=== PATIENT | female | born 1965 ===

== ENCOUNTER → 2020-06-13 | Outpatient (BNVA) | payer OTHER, SELFPAY | PROVIDERS: PCP Internal Medicine; Referring Provider Internal Medicine; Visit Provider Psychiatry & Neurology Neurology | DX: G47.33 Obstructive sleep apnea (adult) (pediatric) (principal) | CPT/HCPCS: 99213 ==

== ENCOUNTER → 2020-06-14 10:11 | Outpatient (BNV) | payer OTHER, SELFPAY | PROVIDERS: PCP Internal Medicine; Visit Provider Internal Medicine | DX: D50.9 Iron deficiency anemia, unspecified (principal) | CPT/HCPCS: 99213 ==

== ENCOUNTER → 2020-07-24 14:27 | Outpatient (BNVA) | payer OTHER, SELFPAY | PROVIDERS: PCP Internal Medicine; Referring Provider Internal Medicine; Visit Provider Anesthesiology | DX: M16.12 Unilateral primary osteoarthritis, left hip (principal); M47.27 Other spondylosis with radiculopathy, lumbosacral region | CPT/HCPCS: 99202 ==

== ENCOUNTER 2020-08-08 07:01 | Outpatient (REF) | payer OTHER, SELFPAY ==
--- NOTE | 2020-08-08 07:38 | FL_ITS ---
EXAMINATION: XR FLUOROSCOPY WITH IMAGES CLINICAL INFORMATION: Lumbosacral radiculopathy. COMPARISON: None. TECHNIQUE: Fluoroscopy performed by Elis Tejada NP. Fluoroscopy time: 0.6 minutes DAP: 14.7 Gycm2 Images: 2 FINDINGS: AP and lateral view of sacrum view of the needle positioned presacral space with contrast injection. FL/FL guidance in treatment room IMPRESSION: Fluoroscopy was provided to pain management department for presacral injection.
== END 2020-08-08 07:02 | disposition home or self-care (01) ==
LOC: HO.RADIR 07:01
PROVIDERS: Visit Provider Anesthesiology
DX: M47.27 Other spondylosis with radiculopathy, lumbosacral region (principal); M16.12 Unilateral primary osteoarthritis, left hip
CPT/HCPCS: 62323; J3300; Q9967

== ENCOUNTER → 2020-09-11 11:40 | Outpatient (BNVA) | payer OTHER, SELFPAY | PROVIDERS: PCP Internal Medicine; Visit Provider Anesthesiology | DX: M16.12 Unilateral primary osteoarthritis, left hip (principal); M47.27 Other spondylosis with radiculopathy, lumbosacral region | CPT/HCPCS: 99212 ==

== ENCOUNTER → 2020-09-13 08:27 | Outpatient (BNVA) | payer OTHER, SELFPAY | PROVIDERS: PCP Internal Medicine; Visit Provider Physician Assistant | DX: Z98.84 Bariatric surgery status (principal); Z59.6 Low income | CPT/HCPCS: 99212 ==

== ENCOUNTER → 2020-09-18 12:45 | Outpatient (BNVA) | payer OTHER, SELFPAY | PROVIDERS: PCP Internal Medicine; Visit Provider Internal Medicine Cardiovascular Disease | DX: Z45.018 Encounter for adjustment and management of other part of cardiac pacemaker (principal); I42.9 Cardiomyopathy, unspecified | CPT/HCPCS: 99212 ==

== ENCOUNTER 2020-09-19 15:01 | Outpatient (REF) | payer OTHER, SELFPAY ==
--- NOTE | 2020-09-20 14:08 | XR_ITS ---
EXAMINATION: XR AP BILATERAL KNEES STANDING XR KNEE, RIGHT XR KNEE, LEFT CLINICAL INFORMATION: Bilateral knee pain COMPARISON: Bilateral AP knee and right knee 10/16/2016 TECHNIQUE: AP bilateral knee. 2 views each knee. FINDINGS: AP BILATERAL KNEE: There is reduction in medial and lateral compartment joint space both knees without bony erosive changes. The soft tissues are normal. RIGHT KNEE: There is loss of patellofemoral compartment joint space with superior and lateral patellar spur and anterior superior patellar enthesophyte of the insertion of quadriceps tendon. No loose body seen. LEFT KNEE: There is loss of patellofemoral compartment joint space with superior and anterior superior patella spur and enthesophyte. No bony erosive changes or loose body seen. XR/XR knee RT 2V IMPRESSION: Degenerative arthritic changes medial and patellofemoral compartment joint space with periarticular spurring in the patellofemoral compartment. No visible acute fracture or dislocation seen.
--- NOTE | 2020-09-20 14:08 | XR_ITS ---
EXAMINATION: XR AP BILATERAL KNEES STANDING XR KNEE, RIGHT XR KNEE, LEFT CLINICAL INFORMATION: Bilateral knee pain COMPARISON: Bilateral AP knee and right knee 10/16/2016 TECHNIQUE: AP bilateral knee. 2 views each knee. FINDINGS: AP BILATERAL KNEE: There is reduction in medial and lateral compartment joint space both knees without bony erosive changes. The soft tissues are normal. RIGHT KNEE: There is loss of patellofemoral compartment joint space with superior and lateral patellar spur and anterior superior patellar enthesophyte of the insertion of quadriceps tendon. No loose body seen. LEFT KNEE: There is loss of patellofemoral compartment joint space with superior and anterior superior patella spur and enthesophyte. No bony erosive changes or loose body seen. XR/XR knee standing BI IMPRESSION: Degenerative arthritic changes medial and patellofemoral compartment joint space with periarticular spurring in the patellofemoral compartment. No visible acute fracture or dislocation seen.
--- NOTE | 2020-09-20 14:08 | XR_ITS ---
EXAMINATION: XR AP BILATERAL KNEES STANDING XR KNEE, RIGHT XR KNEE, LEFT CLINICAL INFORMATION: Bilateral knee pain COMPARISON: Bilateral AP knee and right knee 10/16/2016 TECHNIQUE: AP bilateral knee. 2 views each knee. FINDINGS: AP BILATERAL KNEE: There is reduction in medial and lateral compartment joint space both knees without bony erosive changes. The soft tissues are normal. RIGHT KNEE: There is loss of patellofemoral compartment joint space with superior and lateral patellar spur and anterior superior patellar enthesophyte of the insertion of quadriceps tendon. No loose body seen. LEFT KNEE: There is loss of patellofemoral compartment joint space with superior and anterior superior patella spur and enthesophyte. No bony erosive changes or loose body seen. XR/XR knee LT 2V IMPRESSION: Degenerative arthritic changes medial and patellofemoral compartment joint space with periarticular spurring in the patellofemoral compartment. No visible acute fracture or dislocation seen.
== END 2020-09-19 15:02 | disposition home or self-care (01) ==
LOC: HO.HOSX 15:01
PROVIDERS: Visit Provider Orthopaedic Surgery
DX: M17.0 Bilateral primary osteoarthritis of knee (principal)
CPT/HCPCS: 73560; 73565

== ENCOUNTER → 2020-09-20 13:40 | Outpatient (BNVA) | payer OTHER, SELFPAY | PROVIDERS: PCP Internal Medicine; Visit Provider Orthopaedic Surgery | DX: M17.0 Bilateral primary osteoarthritis of knee (principal) | CPT/HCPCS: 20610; 99202; J1040 ==

== ENCOUNTER 2020-09-28 15:20 | Outpatient (REF) | payer OTHER, SELFPAY ==
--- NOTE | 2020-09-28 15:23 | CT_ITS ---
EXAMINATION: CT LUMBAR SPINE WITHOUT CONTRAST CLINICAL INFORMATION: Spondylosis with radiculopathy. COMPARISON: Lumbar spine 04/11/2020. TECHNIQUE: 2 mm thin and axial and reformatted 2 mm thin sagittal and coronal images of lumbar spine were obtained. This CT examination was performed using dose optimization techniques as appropriate, variously including the following: *Automated exposure control *Adjustment of mA and/or kV according to patient size (this includes techniques or standardized protocols for targeted exams where dose is matched to indication/reason for exam; i.e. extremities or head) *Use of iterative reconstruction technique DLP; 940 mGy-cm FINDINGS: There is normal cervical lordosis. The vertebral heights are normal. There is grade 1 anterolisthesis L4-L5. Rest of the vertebral alignment is normal. The disc heights are preserved. There is no visible acute fracture, dislocation or lytic process. The T12-L1, L1-L2, L2-L3 disc levels unremarkable. At L3-L4 disc level there is minimal bulge flattening the ventral thecal sac but no spinal canal stenosis seen. The neural foramina are patent bilaterally. At L4-L5 disc level there is grade 1 anterolisthesis with mild diffuse bulge without lateralization. There is no spinal canal stenosis. The neural foramina are patent bilaterally in spite of mild facet joint arthropathy at L4-L5 disc level. At L5-S1 disc level there is no significant disc bulge, herniation or spinal stenosis. The neural foramina are patent bilaterally. The paravertebral soft tissues are normal. CT/CT lumbar spine wo con IMPRESSION: Minimal disc bulge L3-L4, L4-L5 and L5-S1 disc levels without spinal canal stenosis. There is a grade 1 anterolisthesis L4 over L5. There is no spinal canal stenosis. The neural foramina are patent bilaterally.
== END 2020-09-28 15:21 | disposition home or self-care (01) ==
LOC: HO.CT 15:20
PROVIDERS: PCP Internal Medicine; Visit Provider Anesthesiology
DX: M47.27 Other spondylosis with radiculopathy, lumbosacral region (principal)
CPT/HCPCS: 72131

== ENCOUNTER → 2020-10-02 15:10 | Outpatient (BNVA) | payer OTHER, SELFPAY | PROVIDERS: PCP Internal Medicine; Visit Provider Anesthesiology ==

== ENCOUNTER → 2020-10-18 14:22 | Outpatient (BNVA) | payer OTHER, SELFPAY | PROVIDERS: PCP Internal Medicine; Visit Provider Physician Assistant | DX: E66.01 Morbid (severe) obesity due to excess calories (principal); I42.9 Cardiomyopathy, unspecified; Z98.84 Bariatric surgery status | CPT/HCPCS: 99212 ==

== ENCOUNTER → 2020-11-01 14:03 | Outpatient (BNVA) | payer OTHER, SELFPAY | PROVIDERS: PCP Internal Medicine; Visit Provider Physician Assistant ==

== ENCOUNTER → 2020-11-02 14:06 | Outpatient (REF) | payer OTHER, SELFPAY ==
--- NOTE | 2020-11-02 14:11 | CA_ITS ---
Transthoracic Echocardiogram Amended Patient (Last, First, Middle): Urvashi Torres D Gender: Female Date of : 1965 Age: 55 Procedure Date: 11/02/2020 Procedure Type: Transthoracic Echocardiogram Location: OP Height: 160.02 cm Weight: 120.66 kg BSA: 2.18 m2 Heart Rate: bpm BP: 139 / 81 mmHg [facility] Technician: BLNACHE Referring MD: Gabriel Salcedo MD Symptoms: I42.9 - Cardiomyopathy, unspecified Study Quality: Fair ECG Rhythm: Sinus Conclusions: - The left ventricular systolic function is normal. The visually estimated ejection fraction is between 55-60%. - No obvious valvular pathology seen on this study. Findings Left Ventricle Normal left ventricular cavity size. There is mildly increased left ventricular wall thickness. The left ventricular systolic function is normal. The visually estimated ejection fraction is between 55-60%. The calculated ejection fraction is 54% by biplane method. There is no evidence of regional wall motion abnormalities. Diastolic function is normal for age. Right Ventricle Mildly increased right ventricular cavity size. There is normal right ventricular systolic function. There is a pacemaker wire seen in the right ventricle. Atria Both atria are normal in size. A pacemaker wire is identified in the right atrium. Aortic Valve There is a normal trileaflet aortic valve. There is no aortic valve stenosis. There is no aortic valve regurgitation. Mitral Valve The mitral valve appears normal. There is trace mitral valve regurgitation. There is no mitral valve stenosis. Pulmonic Valve The pulmonic valve was not well visualized. Tricuspid Valve There is trace tricuspid valve regurgitation. The pulmonary artery systolic pressure is normal. Great Vessels The asc aorta is normal in size. Venous The inferior vena cava is normal in size and collapses greater than 50% with inspiration. Pericardium/Pleural There is no evidence of pericardial effusion. Prior Study Comparison Changes noted compared to prior study dated: 10/12/2019. LVEF improved. Recommendations, Care & Conclusions No obvious valvular pathology seen on this study. Measurements M-Mode Liner Measurements Normals - Women/Men AOV Cusps: 2.20 1.5-2.6 cm/m2 2D Linear Measurements IVSd: 1.13 0.6-0.9/0.6-1.0 cm LVIDd: 4.84 3.9-5.3/4.2-5.9 cm LVIDd Index: 2.22 2.4-3.2/2.2-3.1 cm/m2 LVIDs: 3.76 2.0-3.6 cm LVPWd: 1.03 0.7-1.1 cm Ao Root: 3.90 2.1-3.5 cm LA Diam: 3.50 2.7-3.8/3.0-4.0 cm LAIDs Index: 1.61 1.5-2.3 cm/m2 LV Mass: 238.80 67-162/88-224 g LV Mass Index: 109.54 43-95/49-115 g/m2 LVOT Diam: 2.30 3.0+(-)1.3 cm 2D Volumes LA Vol: 18.60 2D Systolic Function EF 4C: 51.60 >55% EF 2C: 56.50 >55% EF BiP: 54.40 >55% Mitral Valve MV Pk E: 1.05 MV PK A: 1.34 MV Decel Time: 182.00 E/A: 0.80 E'Lateral: 11.70 E'Medial: 7.53 E/E' Med: 13.90 E/E' Lat: 9.00 PHT: 53.00 MVA PHT: 4.15 Decel Fajardo: 5.79 Aortic Valve AoV Pk Wilfredo: 1.72 AoV Pk Grad: 12.00 LVOT LVOT Pk Wilfredo: 1.18 LVOT Mn Wilfredo: 0.72 LVOT VTI: 0.26 LVOT Pk Grad: 6.00 LVOT Mn Grad: 3.00 LVOT Diam: 2.30 LVOT Area: 4.15 Diastolic Function MV Pk E: 1.05 MV Pk A: 1.34 E/A: 0.80 E'Medial: 7.53 E/E' Med: 13.90 E' Laterial: 11.70 E/E' Lat: 9.00 Tricuspid Valve RA Press: 3.00 Great Vessels Aorta Ao Root-2D: 3.90 2.0-3.7 cm Ao Asc: 3.50 2.1-3.4 cm Ao Arch: 2.70 Pulmonary Valve PV Pk Wilfredo: 1.11 Peak PV Grad: 5.00 Updated in Other Vendor System with Status of Final Mohan Goins MD electronically signed on 11/04/2020 9:33:54 AM with status of Final
== END ==
LOC: HO.CARD 14:06
PROVIDERS: Visit Provider Internal Medicine Cardiovascular Disease
DX: I42.9 Cardiomyopathy, unspecified (principal)
CPT/HCPCS: 93306

== ENCOUNTER → 2020-11-06 10:36 | Outpatient (BNVA) | payer OTHER, SELFPAY | PROVIDERS: PCP Internal Medicine; Visit Provider Anesthesiology | DX: M16.12 Unilateral primary osteoarthritis, left hip (principal); M47.27 Other spondylosis with radiculopathy, lumbosacral region; Z79.899 Other long term (current) drug therapy | CPT/HCPCS: 99212 ==

== ENCOUNTER 2020-11-14 06:07 | Outpatient (REF) | payer OTHER, SELFPAY ==
--- NOTE | ~2020-11-14 | FL_ITS ---
EXAMINATION: XR FLUOROSCOPY WITH IMAGES CLINICAL INFORMATION: M53.3 - Sacrococcygeal disorders, not elsewhere classified COMPARISON: CT lumbar spine noncontrast 09/28/2020 TECHNIQUE: Fluoroscopy performed by Elis Tejada NP. Fluoroscopy time: 0.3 minutes DAP: 4.08 Gycm2 Images: 1 FINDINGS: There is a spinal needle with tip near anterior cortex lower coccyx. There is presacral coccygeal contrast. No visible vascular communication. FL/FL guidance in treatment room IMPRESSION: Fluoroscopy for pain management procedure.
== END 2020-11-14 06:08 | disposition home or self-care (01) ==
LOC: HO.RADIR 06:07
PROVIDERS: Visit Provider Anesthesiology
DX: M47.27 Other spondylosis with radiculopathy, lumbosacral region (principal); M53.3 Sacrococcygeal disorders, not elsewhere classified; M16.12 Unilateral primary osteoarthritis, left hip; Z87.891 Personal history of nicotine dependence
CPT/HCPCS: 64999; J3300; Q9967

== ENCOUNTER → 2020-11-15 14:15 | Outpatient (BNVA) | payer OTHER, SELFPAY | PROVIDERS: PCP Internal Medicine; Visit Provider Physician Assistant ==

== ENCOUNTER → 2020-11-17 08:15 | Outpatient (BNVA) | payer OTHER, SELFPAY | PROVIDERS: PCP Internal Medicine; Visit Provider Physician Assistant ==

== ENCOUNTER 2020-11-23 12:44 | Outpatient (REF) | payer OTHER, SELFPAY ==
--- NOTE | ~2020-11-23 | MM_ITS ---
EXAMINATION: MM SCREENING DIGITAL BREAST TOMOSYNTHESIS, BILATERAL CLINICAL INFORMATION: Screening. Asymptomatic. The lifetime risk of breast cancer based on the Tyrer-Cuzick Model is 7.6%. COMPARISON: Mammography: July 28, 2019 and studies dating back to May 15, 2009 TECHNIQUE: Digital breast tomosynthesis is performed in both the craniocaudal and mediolateral oblique views along with computer-aided detection (CAD). Synthesized 2D images are generated from the tomosynthesis. FINDINGS: There are scattered areas of fibroglandular density (ACR BI-RADS breast composition Category b). There are no significant masses, abnormal calcifications, or other abnormalities. MM/MM tomosynthesis screening BI IMPRESSION: There are no significant changes from prior study. ASSESSMENT: BI-RADS 1: Negative RECOMMENDATION: Routine annual mammography screening. This patient's information was entered into a reminder system with a target due date for their next mammogram.
== END 2020-11-23 12:45 | disposition home or self-care (01) ==
LOC: HO.MAMMO 12:44
PROVIDERS: PCP Internal Medicine; Visit Provider Internal Medicine
DX: Z12.31 Encounter for screening mammogram for malignant neoplasm of breast (principal)
CPT/HCPCS: 77063; 77067

== ENCOUNTER → 2020-11-29 08:10 | Outpatient (BNVA) | payer OTHER, SELFPAY | PROVIDERS: PCP Internal Medicine; Visit Provider Anesthesiology | DX: M16.12 Unilateral primary osteoarthritis, left hip (principal); M47.27 Other spondylosis with radiculopathy, lumbosacral region; Z79.899 Other long term (current) drug therapy; Z87.891 Personal history of nicotine dependence | CPT/HCPCS: 99212 ==

== ENCOUNTER → 2020-12-12 09:19 | Outpatient (BNVA) | payer OTHER, SELFPAY | PROVIDERS: PCP Internal Medicine; Visit Provider Psychiatry & Neurology Neurology ==

== ENCOUNTER → 2020-12-14 14:55 | Outpatient (BNVA) | payer OTHER, SELFPAY | PROVIDERS: PCP Internal Medicine; Visit Provider Anesthesiology | DX: M16.12 Unilateral primary osteoarthritis, left hip (principal); M47.27 Other spondylosis with radiculopathy, lumbosacral region; Z79.899 Other long term (current) drug therapy | CPT/HCPCS: 99212 ==

== ENCOUNTER → 2020-12-19 13:37 | Outpatient (BNVA) | payer OTHER, SELFPAY | PROVIDERS: PCP Internal Medicine; Visit Provider Physician Assistant | DX: E66.01 Morbid (severe) obesity due to excess calories (principal); Z98.84 Bariatric surgery status | CPT/HCPCS: 99212 ==

== ENCOUNTER 2021-01-03 15:36 | Outpatient (REF) | payer OTHER, SELFPAY | END 2021-01-03 15:37 | disposition home or self-care (01) | LOC: HO.LAB 15:36 | PROVIDERS: PCP Internal Medicine; Visit Provider Obstetrics & Gynecology | DX: N93.9 Abnormal uterine and vaginal bleeding, unspecified (principal) | CPT/HCPCS: 58100; 88305; 99202 ==

== ENCOUNTER 2021-01-11 11:05 | Outpatient (REF) | payer OTHER, SELFPAY ==
[2021-01-16 17:36] LABS: Vitamin A 37 mcg/dL (38-98)
== END 2021-01-11 11:06 | disposition home or self-care (01) ==
LOC: HO.LAB 11:05
PROVIDERS: PCP Internal Medicine; Visit Provider Physician Assistant
DX: E50.9 Vitamin A deficiency, unspecified (principal)
CPT/HCPCS: 36415; 84590

== ENCOUNTER → 2021-01-15 11:03 | Outpatient (BNVA) | payer OTHER, SELFPAY | PROVIDERS: PCP Internal Medicine; Visit Provider Obstetrics & Gynecology ==

== ENCOUNTER 2021-01-16 06:57 | Outpatient (REF) | payer OTHER, SELFPAY ==
--- NOTE | ~2021-01-16 | FL_ITS ---
EXAMINATION: XR FLUOROSCOPY WITH IMAGES CLINICAL INFORMATION: Left hip arthritis COMPARISON: None. TECHNIQUE: Fluoroscopy performed by Elis Tejada NP. Fluoroscopy time: 0.1 minutes DAP: 5.0 Gycm2 Images: 1 FINDINGS: Single image demonstrates needle placement projecting over the lateral femoral head on noncontrast imaging FL/FL guidance in treatment room IMPRESSION: Left hip joint. Fluoroscopy guidance for left hip injection.
== END 2021-01-16 06:58 | disposition home or self-care (01) ==
LOC: HO.RADIR 06:57
PROVIDERS: Visit Provider Anesthesiology
DX: M16.12 Unilateral primary osteoarthritis, left hip (principal); M17.12 Unilateral primary osteoarthritis, left knee; M47.27 Other spondylosis with radiculopathy, lumbosacral region; I42.9 Cardiomyopathy, unspecified; Z88.8 Allergy status to other drugs, medicaments and biological substances; Z95.0 Presence of cardiac pacemaker; Z87.891 Personal history of nicotine dependence
CPT/HCPCS: 20610; J3300; Q9967

== ENCOUNTER → 2021-01-17 08:11 | Outpatient (BNVA) | payer OTHER, SELFPAY | PROVIDERS: PCP Internal Medicine; Visit Provider Physician Assistant ==

== ENCOUNTER → 2021-02-21 14:59 | Outpatient (BNVA) | payer OTHER, SELFPAY | PROVIDERS: PCP Internal Medicine; Visit Provider Anesthesiology | DX: M16.12 Unilateral primary osteoarthritis, left hip (principal); M47.27 Other spondylosis with radiculopathy, lumbosacral region; G89.4 Chronic pain syndrome | CPT/HCPCS: 99212 ==

== ENCOUNTER → 2021-03-01 10:42 | Outpatient (BNVA) | payer OTHER, SELFPAY | PROVIDERS: PCP Internal Medicine; Referring Provider Internal Medicine; Visit Provider Dietitian, Registered | DX: E66.01 Morbid (severe) obesity due to excess calories (principal); Z68.41 Body mass index [BMI] 40.0-44.9, adult | CPT/HCPCS: 97803 ==

== ENCOUNTER → 2021-03-19 13:06 | Outpatient (BNVA) | payer OTHER, SELFPAY | PROVIDERS: PCP Internal Medicine; Referring Provider Internal Medicine; Visit Provider Internal Medicine Cardiovascular Disease | DX: I42.9 Cardiomyopathy, unspecified (principal); Z95.0 Presence of cardiac pacemaker; Z79.899 Other long term (current) drug therapy | CPT/HCPCS: 99212 ==

== ENCOUNTER → 2021-03-29 12:56 | Outpatient (BNVA) | payer OTHER, SELFPAY | PROVIDERS: PCP Internal Medicine; Visit Provider Physician Assistant ==

== ENCOUNTER → 2021-03-30 07:46 | Outpatient (BNVA) | payer OTHER, SELFPAY | PROVIDERS: PCP Internal Medicine; Visit Provider Physician Assistant | DX: E66.01 Morbid (severe) obesity due to excess calories (principal); Z98.84 Bariatric surgery status ==

== ENCOUNTER 2021-04-02 10:31 | Outpatient (REF) | payer OTHER, SELFPAY ==
[2021-04-02 11:37] LABS: MANUAL DIFF FLAG NO
[2021-04-02 11:52] LABS: Basophils Percent Auto 0.3 % (0-2); Eosinophils Absolute Auto 0.1 X10*3/uL (0.0-0.4); Eosinophils Percent Auto 1.1 % (0-4); Hemoglobin 12.2 g/dl (12.0-16.0); Imm Gran Abs Auto 0.01 X10*3/uL (0.00-0.03); Imm Gran Pct Auto 0.2 % (0.0-0.4); Lymphocytes Absolute Auto 2.1 X10*3/uL (1.2-4.9); Lymphocytes Percent Auto 34.9 % (20-40); Mean Corpuscular HGB Conc 31.3 g/dl (31.0-35.0); Mean Corpuscular Hemoglobin 27.4 pg (27.0-33.0); Mean Corpuscular Volume 87.6 fL (80-98); Mean Platelet Volume 12.1 fL (9.4-12.3); Monocytes Absolute Auto 0.5 X10*3/uL (0.1-1.2); Monocytes Percent Auto 7.7 % (2-11); Neutrophils Absolute Auto 3.4 X10*3/uL (2.0-8.3); Neutrophils Percent Auto 55.8 % (45-73); Platelet Count 199 X10*3/uL (160-400); Red Blood Count 4.45 X10*6/uL (4.20-5.50); Red Cell Distribution Width 13.1 % (11.0-16.0); White Blood Count 6.1 X10*3/uL (4.8-10.8)
[2021-04-02 12:04] LABS: Estimated Average Glucose 108 mg/dL; Hemoglobin A1c % 5.4 %
[2021-04-02 12:40] LABS: Alanine Aminotransferase 18 U/L (0-31); Albumin Level 4.4 g/dL (3.5-5.0); Alkaline Phosphatase 57 U/L (39-117); Anion Gap 15 (12-20); Aspartate Amino Transferase 38 U/L (5-31); Bilirubin Total 0.4 mg/dL (0.0-1.0); Blood Urea Nitrogen 14 mg/dL (9-16); C Reactive Protein 0.69 mg/dL (< or = 0.50); Calcium 10.7 mg/dL (8.4-10.2); Carbon Dioxide 25 mmol/L (22-29); Chloride 105 mmol/L (96-108); Cholesterol 146 mg/dL; Estimated Glomerular Filt Rate > 60; Glucose Random 82 mg/dL (60-115); HDL Cholesterol 43 mg/dL; Iron 73 mcg/dL (30-160); LDL Cholesterol Calculated 86 mg/dl; Percent Iron Saturation 25 % (15-50); Potassium 4.1 mmol/L (3.3-5.1); Sodium 141 mmol/L (135-145); Total Iron Binding Capacity 290 mcg/dL (228-428); Total Protein 7.3 g/dL (6.5-8.0); Triglycerides 87 mg/dL; Unsaturated Iron Binding 217 ug/dL
[2021-04-02 12:50] LABS: TSH reflex Free T4 1.34 uIU/mL (0.32-4.0); Vitamin D 25-OH Total 41.8 ng/mL (>30)
[2021-04-02 12:53] LABS: Folate 19.2 ng/mL (> or = 4.0); Vitamin B12 1005 pg/mL (200-900)
[2021-04-02 13:31] LABS: Ferritin 422 ng/mL (10-250)
[2021-04-05 06:21] LABS: Zinc 73 mcg/dL (60-130)
[2021-04-05 19:36] LABS: Vitamin A 29 mcg/dL (38-98)
[2021-04-07 11:36] LABS: Vitamin B1 25 nmol/L (8-30)
== END 2021-04-02 10:32 | disposition home or self-care (01) ==
LOC: HO.LAB 10:31
PROVIDERS: PCP Internal Medicine; Visit Provider Physician Assistant
DX: E66.01 Morbid (severe) obesity due to excess calories (principal); Z98.84 Bariatric surgery status
CPT/HCPCS: 36415; 80053; 80061; 82306; 82607; 82728; 82746; 83036; 83525; 83540; 83735; 83970; 84425; 84443; 84590; 84630; 85025; 86140

== ENCOUNTER → 2021-04-03 11:13 | Outpatient (BNVA) | payer OTHER, SELFPAY | PROVIDERS: PCP Internal Medicine; Visit Provider Surgery Vascular Surgery | DX: I83.12 Varicose veins of left lower extremity with inflammation (principal) | CPT/HCPCS: 99202 ==

== ENCOUNTER 2021-04-09 08:14 | Outpatient (REF) | payer OTHER, SELFPAY ==
--- NOTE | ~2021-04-09 | US_ITS ---
EXAMINATION: BILATERAL LOWER EXTREMITY VENOUS ULTRASOUND (Reflux Exam) CLINICAL INDICATION: This is a 55-year-old female with venous insufficiency and varicose veins. COMPARISON: None. TECHNIQUE: Color flow triplex imaging and compression Doppler was performed to evaluate both the deep and the superficial systems bilaterally. To evaluate the superficial system, the examination was performed in the upright position. Color-flow Doppler ultrasound and compression ultrasound were utilized. In addition, maneuvers were utilized to demonstrate reflux. FINDINGS: 1. DEEP VENOUS ULTRASOUND OF THE RIGHT LOWER EXTREMITY: Common Femoral Vein: Compressible, normal respiratory variation and augmented flow. Femoral vein: Compressible, normal color flow and augmentation. Popliteal Vein: Compressible, normal augmentation. Deep Reflux: There is no evidence of reflux in the deep system in either the common femoral vein or the popliteal vein. . There is no evidence of a Newton's cyst. 2. SUPERFICIAL ULTRASOUND WITH DOPPLER OF RIGHT LOWER EXTREMITY GREAT SAPHENOUS VEIN: Saphenofemoral junction: 0.8 cm Mid thigh: 0.4 cm Above knee: 0.3 cm Below knee: 0.3 cm Mid calf: 0.3 cm Ankle: 0.3 cm GSV REFLUX: No evidence of reflux. DUPLICATED GREAT SAPHENOUS VEIN: There is a 0.3 cm duplicated lateral great saphenous vein without evidence of reflux. SMALL SAPHENOUS VEIN: Upper: 0.2 cm Lower: 0.2 cm SSV REFLUX: No evidence of reflux. VEIN OF GIACOMINI: None Imaged. PERFORATORS: None Imaged VARICOSITIES: None Imaged 3. DEEP VENOUS ULTRASOUND OF THE LEFT LOWER EXTREMITY: Common Femoral Vein: Compressible, normal respiratory variation and augmented flow. Femoral vein: Compressible, normal color flow and augmentation. Popliteal Vein: Compressible, normal augmentation. Deep Reflux: There is no evidence of reflux in the deep system in either the common femoral vein or the popliteal vein. There is no evidence of a Newton's cyst. 4. SUPERFICIAL ULTRASOUND WITH DOPPLER OF LEFT LOWER EXTREMITY GREAT SAPHENOUS VEIN: Saphenofemoral junction: 0.8 cm Mid thigh: 0.4 cm Above knee: 0.3 cm Below knee: 0.3 cm Mid calf: 0.2 cm Ankle: 0.3 cm GSV REFLUX: No evidence of reflux. DUPLICATED GREAT SAPHENOUS VEIN: None SMALL SAPHENOUS VEIN: Upper: 0.5 cm Lower: 0.3 cm SSV REFLUX: No evidence of reflux. VEIN OF GIACOMINI: None Imaged. 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 VARICOSITIES: There is a 0.3 cm proximal thigh varicose vein without reflux. There is a 0.3 cm proximal calf varicose vein without reflux. US/US venous duplex LE BI IMPRESSION: 1. There are patent bilateral great saphenous veins and small saphenous veins, respectively, without evidence of reflux. 2. There are 0.3 cm varicose veins on the left as noted without reflux.
== END 2021-04-09 08:15 | disposition home or self-care (01) ==
LOC: HO.US 08:14
PROVIDERS: Visit Provider Surgery Vascular Surgery
DX: I83.893 Varicose veins of bilateral lower extremities with other complications (principal)
CPT/HCPCS: 93970

== ENCOUNTER → 2021-04-24 11:00 | Outpatient (BNVA) | payer OTHER, SELFPAY | PROVIDERS: PCP Internal Medicine; Visit Provider Surgery Vascular Surgery | DX: I83.12 Varicose veins of left lower extremity with inflammation (principal) | CPT/HCPCS: 99212 ==

== ENCOUNTER 2021-05-29 12:21 | Outpatient (REF) | payer OTHER, SELFPAY ==
--- NOTE | ~2021-05-29 | XR_ITS ---
EXAMINATION: XR HIP, LEFT CLINICAL INFORMATION: Left hip pain. COMPARISON: None TECHNIQUE: Two views of the left hip. FINDINGS: There is mild left periacetabular spurring. The hip joint space is maintained. No visible acute fracture or dislocation seen. XR/XR hip LT min 2V IMPRESSION: Mild degenerative changes left hip joint..
== END 2021-05-29 12:22 | disposition home or self-care (01) ==
LOC: HO.HMGCX 12:21
PROVIDERS: PCP Internal Medicine; Visit Provider Internal Medicine
DX: Z13.89 Encounter for screening for other disorder (principal)
CPT/HCPCS: 73502

== ENCOUNTER 2021-06-15 15:20 | Outpatient (REF) | payer OTHER, SELFPAY ==
[2021-06-15 15:43] LABS: COVID-19 Test Negative (Negative)
== END 2021-06-15 15:21 | disposition home or self-care (01) ==
LOC: HO.LAB 15:20
PROVIDERS: PCP Internal Medicine; Visit Provider Internal Medicine
DX: Z20.822 Contact with and (suspected) exposure to COVID-19 (principal)
CPT/HCPCS: 36415; 87635; C9803

== ENCOUNTER → 2021-06-21 11:35 | Outpatient (BNVA) | payer OTHER, SELFPAY | PROVIDERS: PCP Internal Medicine; Visit Provider Orthopaedic Surgery | DX: M22.2X1 Patellofemoral disorders, right knee (principal); M22.2X2 Patellofemoral disorders, left knee; R53.81 Other malaise | CPT/HCPCS: 20610; 99212; J1100 ==

== ENCOUNTER → 2021-06-26 08:41 | Outpatient (BNVA) | payer OTHER, SELFPAY | PROVIDERS: PCP Internal Medicine; Referring Provider Internal Medicine; Visit Provider Psychiatry & Neurology Neurology ==

== ENCOUNTER → 2021-09-17 12:48 | Outpatient (BNVA) | payer OTHER, SELFPAY | PROVIDERS: PCP Internal Medicine; Referring Provider Internal Medicine; Visit Provider Internal Medicine Cardiovascular Disease | DX: Z45.018 Encounter for adjustment and management of other part of cardiac pacemaker (principal); I42.9 Cardiomyopathy, unspecified | CPT/HCPCS: 93005; 99212 ==

== ENCOUNTER → 2021-09-20 10:35 | Outpatient (BNVA) | payer OTHER, SELFPAY | PROVIDERS: PCP Internal Medicine; Visit Provider Anesthesiology | DX: M16.12 Unilateral primary osteoarthritis, left hip (principal); M47.27 Other spondylosis with radiculopathy, lumbosacral region; G89.4 Chronic pain syndrome; G90.522 Complex regional pain syndrome I of left lower limb | CPT/HCPCS: 99212 ==

== ENCOUNTER → 2021-10-24 11:34 | Outpatient (BNVA) | payer OTHER, SELFPAY | PROVIDERS: PCP Internal Medicine; Visit Provider Anesthesiology | DX: M16.12 Unilateral primary osteoarthritis, left hip (principal); M47.27 Other spondylosis with radiculopathy, lumbosacral region; G90.522 Complex regional pain syndrome I of left lower limb; G89.4 Chronic pain syndrome | CPT/HCPCS: 99212 ==

== ENCOUNTER → 2021-11-05 11:33 | Outpatient (BNVA) | payer OTHER, SELFPAY | PROVIDERS: PCP Internal Medicine; Visit Provider Orthopaedic Surgery | DX: M25.561 Pain in right knee (principal); M25.562 Pain in left knee | CPT/HCPCS: 20610; 99212; J1100 ==

== ENCOUNTER 2021-11-16 11:51 | Day surgery (SDC) | payer OTHER, SELFPAY ==
--- NOTE | 2021-11-15 12:02 | HO.ANESPROP2 ---
Documented by User: Candace Freed NP 11/15/21 12:09 HPI - Anesthesia Eval Consult details Narrative: 56yo F for Left L2-L3 and L3-L4 Lumbar Spinal Cord Stimulation Trial Pacer in situ Stable at 09/2021 routine cardiac appt [facility] Active Problems Active Problems: All Active Problems (Updated 11/13/21 @ 14:27 by Yuly Woodruff, RN) Obstructive sleep apnea (Acute) Iron deficiency anemia (Chronic) Osteoarthritis of left hip (Acute) Obesity (Acute) Low income (Acute) Primary osteoarthritis of knees, bilateral (Acute) Left ankle swelling (Acute) Morbid obesity (Acute) Lumbar pain (Acute) Coccydynia (Acute) Dysfunctional uterine bleeding (Acute) Vitamin A deficiency (Acute) Ear disorder (Acute) Tinnitus, right (Acute) Varicose veins of left lower extremity with inflammation (Acute) Abdominal pain (Acute) Serum calcium elevated (Acute) Elevated ferritin (Acute) Encounter for general adult medical examination with abnormal findings (Acute) Change in mole (Acute) Gait disturbance (Acute) Hip pain, left (Acute) Patellofemoral arthralgia of both knees (Acute) Physical deconditioning (Acute) Bilateral knee pain (Acute) Complex regional pain syndrome i of left lower limb (Acute) Chronic pain syndrome (Acute) Cardiac pacemaker in situ (Acute) Cardiomyopathy (Acute) Gastric bypass status for obesity (Acute) Allergies (Acute) Osteoarthritis of left knee (Acute) Spondylosis of lumbosacral spine with radiculopathy (Acute) Past Medical History Medical History (Updated 11/13/21 @ 14:27 by Yuly Woodruff, RN) Allergies Back pain Cardiac pacemaker in situ Cardiomyopathy Chronic pain syndrome Complex regional pain syndrome i of left lower limb GERD (gastroesophageal reflux disease) HTN (hypertension) Osteoarthritis of left knee Second degree AV block Spondylosis of lumbosacral spine with radiculopathy Family History Family History Father Asthma Mother HTN (hypertension) Brother Cardiac pacemaker Surgical History Surgical History (Updated 11/13/21 @ 14:27 by Yuly Woodruff, RN) Gastric bypass status for obesity History of esophagogastroduodenoscopy (EGD) History of permanent cardiac pacemaker placement Hx of breast reduction, elective Hx of cholecystectomy Hx of colonoscopy Social History Social History Housing: Apartment Alcohol intake: former Patient Tobacco Use Status: Former Tobacco user Cigarette Packs Per Day: 0.5 Use of substances other than those prescribed or required for medical reasons: No Are you DNR?: No Advance Directives: No Advance Directives Information Provided: Yes Advance Directives on File: No Recently lost weight without trying: No 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al status: unemployed and disabled 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 Med[employer] Allergies Allergy/AdvReac Type Severity Reaction Status Date / Time adhesive tape Allergy Intermediate skin Uncoded 11/13/21 14:28 breakdown Home Medications Medication Instructions Recorded Confirmed Last Taken Type cetirizine 10 mg tablet 10 mg PO DAILY 09/20/21 11/13/21 11/16/21 History ipratropium bromide 42 mcg (0.06 2 spray INTRANASAL BID 09/20/21 11/13/21 Unknown History %) nasal spray ketotifen fumarate 0.025 % (0.035 0 drp OPHTHALMIC (EYE) 09/20/21 11/05/21 Unknown History %) eye drops fluticasone propionate 50 1 - 2 spray INTRANASAL QAM 11/13/21 11/13/21 Unknown History mcg/actuation nasal spray,suspension Exam Exam Date and Time: November 15, 2021 1202 Pertinent Lab Results Pertinent Lab Results: Laboratory Tests 04/02/21 07/25/21 10:45 13:40 WBC 6.1 Hgb 11.8 L Hct 36.6 L Plt Count 213 Sodium 141 Potassium 4.1 Chloride 105 Carbon Dioxide 25 BUN 14 Creatinine 0.69 Narrative Narrative: Cardiac Device Check 09/2021 Details: Dual-chamber [employer] pacemaker in place.? Programmed in DDDR at 60 beats per minute.? RV pacing 72% of time.? No arrhythmias noted.? Atrial ventricular pacing thresholds are adequate.? Pacing lead impedance is stable.? Atrial sensing is adequate.? No arrhythmias noted.? Battery life is at about 2 years EKG 09/2021 normal sinus rhythm with intermittent ventricular pacing as well as [place] conducted beats showing right bundle-branch block and left anterior fascicular block ECHO 10/2020 Conclusions: - The left ventricular systolic function is normal.? The visually estimated ejection fraction is between 55-60%. ? - No obvious valvular pathology seen on this study.? ?? Assessment and Plan Assessment Anesthesia Assessment: Chart Reviewed Documented by User: Panda Nixon MD 11/16/21 14:18 [facility] Past Medical History Medical History (Updated 11/13/21 @ 14:27 by Yuly Woodruff, RN) Allergies Back pain Cardiac pacemaker in situ Cardiomyopathy Chronic pain syndrome Complex regional pain syndrome i of left lower limb GERD (gastroesophageal reflux disease) HTN (hypertension) Osteoarthritis of left knee Second degree AV block Spondylosis of lumbosacral spine with radiculopathy Family History Family History Father Asthma Mother HTN (hypertension) Brother Cardiac pacemaker Family history of problems with anesthesia: No Surgical History Surgical History (Updated 11/13/21 @ 14:27 by Yuly Woodruff RN) Gastric bypass status for obesity History of esophagogastroduodenoscopy (EGD) History of permanent cardiac pacemaker placement Hx of breast reduction, elective Hx of cholecystectomy Hx of colonoscopy History of Problems with Anesthesia: No Social History Social History Housing: Apartment Alcohol intake: former Patient Tobacco Use Status: Former Tobacco user Cigarette Packs Per Day: 0.5 Use of substances other than those prescribed or required for medical reasons: No Are you DNR?: No Advance Directives: No Advance Directives Information Provided: Yes Advance Directives on File: No Recently lost weight without trying: No 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al status: unemployed and disabled 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 Med[employer] Allergies Allergy/AdvReac Type Severity Reaction Status Date / Time adhesive tape Allergy Intermediate skin Uncoded 11/13/21 14:28 breakdown Home Medications Medication Instructions Recorded Confirmed Last Taken Type cetirizine 10 mg tablet 10 mg PO DAILY 09/20/21 11/13/21 11/16/21 History ipratropium bromide 42 mcg (0.06 2 spray INTRANASAL BID 09/20/21 11/13/21 Unknown History %) nasal spray ketotifen fumarate 0.025 % (0.035 0 drp OPHTHALMIC (EYE) 09/20/21 11/05/21 Unknown History %) eye drops fluticasone propionate 50 1 - 2 spray INTRANASAL QAM 11/13/21 11/13/21 Unknown History mcg/actuation nasal spray,suspension Exam Airway Mallampati Class: III TM Dist: >3cm Neck ROM: Full Assessment and Plan Assessment Anesthesia Assessment: Anesthesia Plan Discussed Final Anesthetic Review Family History of Problems with Anesthesia: No History of Problems with Anesthesia: No NPO: Yes ASA Class: III Final Preanesthetic Review: No Changes in Pt Med Stat, Meds/Allgs Chart Reviewed, Consent Obtained/Reviewed and Anes Risks/Benef Reviewed Patient Risk: Intermediate Procedure Risk: Low Anesthetic Plan Anesthetic Plan: GA Disposition: Standard PACU
--- NOTE | ~2021-11-16 | FL_ITS ---
EXAMINATION: XR FLUOROSCOPY WITH IMAGES CLINICAL INFORMATION: Spinal cord simulation trial. COMPARISON: None. TECHNIQUE: Fluoroscopy performed by Dr. Ratliff. Fluoroscopy time: 1.8 minutes DAP: 40.1 mGycm2 Images: 5 FINDINGS: There are lateral images obtained lumbar spine revealing attempted insertion of spinal canal simulation posterior to L2 and L3 vertebra. The spinal canal simulators are intraspinal at the same level of insertion. No gross bony abnormality. FL/FL guidance in OR IMPRESSION: Fluoroscopy provided to referring physician for spinal cord simulation trial.
[2021-11-16 13:39] VITALS: BMI 44.2
[2021-11-16 14:01] VITALS: BP 138/51; PULSE 60; RESP 18; TEMP 36.6; O2SAT 97
[2021-11-16] MEDS: Lactated Ringers 1,000 ML 50 ML IVCONT (14:03)
--- NOTE | 2021-11-16 14:42 | MHC.SHP ---
Pre-Procedural Eval Section A Date of Service: 11/16/21 The patient is an INPATIENT: No Changes since office visit: Yes Patient answered all questions The History & Physical has been completed within 30 days and I have reviewed it.: No Section B Chief Complaint: Complex regional pain syndrome Details of Present Illness: As above Relevant Family History (Specify if Yes): No Relevant Social History: Other (specify) History of Previous Operations: No relevant previous surgery Allergies: Allergies Allergy/AdvReac Type Severity Reaction Status Date / Time adhesive tape Allergy Intermediate skin Uncoded 11/13/21 14:28 breakdown Review of Systems Sugical H&P ROS: Negative: Cardiovascular, Respiratory, Neurological, Psychiatric, Hem-Onc, Allergic/Immunologic, Gastrointestinal, Genitourinary, Musculoskeletal, Integumentary, Endocrine and Eyes/Ears/Nose/Throat and Yes, Specify: Constitution (Morbid obesity) Exam Surgical H&P Exam: Normal: HEENT, Normal: Heart, Normal: Lungs, Normal: Extremities, Normal: Skin and Normal: Neurological and Significant Findings: Abdomen (Greatly enlarged) Plan Diagnosis/Plan: Unchanged I have reviewed the history and physical and performed a pertinent physical examination on my patient. No changes have occurred unless specified.
[2021-11-16 16:43] VITALS: BP 135/85; PULSE 74; RESP 12; TEMP 36.6; O2SAT 99
--- NOTE | 2021-11-16 16:53 | PC.NURSE ---
EQUIPMENT DIRECTOR FINANCIAL ANALYSIS AT BEDSIDE WITH GREENHOUSE FLORIST TO REVIEW PROCEDURE AND SPINAL STIMULATION SETTINGS.
[2021-11-16 16:58] VITALS: BP 129/80; PULSE 60; RESP 16; O2SAT 100
--- NOTE | 2021-11-16 17:03 | PM.OP ---
Brief Operative Note Date of Service: 11/16/21 Pre-op diagnosis: Complex regional pain syndrome left lower extremity Post-op diagnosis: same Procedure: Spinal cord stimulator L3-L4 L4-L5 foraminal stimulation stim wave technology Implants: None per Surgeon: Antonio Ratliff MD Anesthesia: MAC Was an Exercise Science Instructor used for this Procedure?: No Estimated blood loss (mL): 10 Pathology: none sent Condition: stable Disposition: PACU
--- NOTE | 2021-11-16 17:05 | W.PM.OPN ---
Operative Note Operative Note Date of Service: 11/16/21 Narrative: ?SCS Trial transforaminal electrodes placement. Informed consent was explained to the patient. She was taken inside of the operating room and was positioned prone on operating table. ASA monitors were applied and she was sedated. ? Time-out was performed. Antibiotic need was addressed 3 g of cefazolin was injected 30 minutes before the procedure ? Her mid back was prepped and draped with ChloraPrep and sterile Utility towels. ? C-arm was brought over the operating field and picture of patient's lumbar spine was demonstrated on the screen. Stimulator Placement Procedure 68064 The L2 left interspace was identified and the C-arm angled to crisp up the end plates. The entry path was from caudal to cranial, along the path of the nerve root. The C-arm was angled to the left so that the intervertebral foramen was visualized with an entry point about 8 cm from the midline. A 2 cm transverse line was drawn extending from the entry point laterally. The line,subcutaneous tissues and tissues along the path of the needle were injected with a local anesthetic/epinephrine mixture. A curved needle was passed along the path of the C-arm until the superior articular process in the supraradicular space was impinged upon. On the lateral view, the needle was at the dorsal aspect of the foramen. A 4-electrode lead array stimulator was passed so that the middle two electrodes were in the epidural space, and two electrodes were under the pedicle. A 2-0 silk was passed through the superficial fascia at the medial aspect of the needle. The needle and stylet was removed. The electrode arrays were anchored with a Tycrone tie. The stylet is removed from the device and the RF stylet is connected to the electrode array with the handle of the F stylet ending flush with the end of the electrode array tubing. The needles were removed. the electrode aaray tubing was tide on itself. Second Stimulator Placement 82556 A second device and was placed, entering in identical manner to the L3- L4 level. The marker band of the device(s) was placed at the exiting fascia layer. Appropriate position of the electrode arrays and marker bands was confirmed in multiple views. Upon complition of the electrode array insertions the steri-strips and mastisol were used to fix the distal portions of the electrodes to the skin. Sterile dressing was applied, stimulating paddle was placed on the distal ends of electrodes After this the patient transfered to the stretcher supine, awaken and transferred to PACU for the recovery.
[2021-11-16 17:13] VITALS: BP 146/70; PULSE 70; RESP 16; TEMP 36.1; O2SAT 98
== END 2021-11-16 17:40 | disposition home or self-care (01) ==
PROVIDERS: PCP Internal Medicine; Visit Provider Anesthesiology
PROC: (CPT 63650; principal; 2021-11-16 13:40)
DX: G90.522 Complex regional pain syndrome I of left lower limb (principal); G89.4 Chronic pain syndrome; M16.12 Unilateral primary osteoarthritis, left hip; M47.27 Other spondylosis with radiculopathy, lumbosacral region; Z95.0 Presence of cardiac pacemaker; E66.01 Morbid (severe) obesity due to excess calories; Z68.42 Body mass index [BMI] 45.0-49.9, adult; Z91.040 Latex allergy status
CPT/HCPCS: 63650 ×2; C1778; J0690; J2250; J3010

== ENCOUNTER → 2021-11-22 10:27 | Outpatient (BNVA) | payer OTHER, SELFPAY | PROVIDERS: PCP Internal Medicine; Visit Provider Anesthesiology | DX: Z51.81 Encounter for therapeutic drug level monitoring (principal); F11.20 Opioid dependence, uncomplicated | CPT/HCPCS: 99212 ==

== ENCOUNTER 2021-11-25 17:51 | Emergency (ER) | payer OTHER, SELFPAY ==
--- NOTE | ~2021-11-25 | CT_ITS ---
EXAMINATION: CT LUMBAR SPINE WITHOUT CONTRAST CLINICAL INFORMATION: Increased pain. COMPARISON: CT of the lumbar spine done on 09/28/2020. TECHNIQUE: Helical noncontrast CT scan of the lumbar spine was performed. Images were reconstructed in 1.5 mm axial and 2 mm coronal and sagittal plane. This CT examination was performed using dose optimization techniques as appropriate, variously including the following: *Automated exposure control *Adjustment of mA and/or kV according to patient size (this includes techniques or standardized protocols for targeted exams where dose is matched to indication/reason for exam; i.e. extremities or head) *Use of iterative reconstruction technique DLP; 907. mGy-cm FINDINGS: The heights of the lumbar vertebrae are well-maintained. Subtle grade 1 anterolisthesis of L4 over L5. Mild facet joint arthritic changes are noted at the lower lumbar spine. Posterior appendages are intact. No evidence of any fracture present. No evidence of any paraspinal, soft tissue hematoma present. The visualized retroperitoneum grossly appears unremarkable. Significant motion artifacts are present. CT/CT lumbar spine wo con IMPRESSION: No CT evidence of any compression fracture or paraspinal hematoma. Mild grade 1 anterolisthesis of L4 over L5 and facet joint arthritic changes at lower lumbar spine.
[2021-11-25 18:10] VITALS: BP 127/57; PULSE 65; RESP 19; TEMP 37; O2SAT 98; BMI 45.3
--- NOTE | 2021-11-25 18:24 | ED_ITS ---
HPI - Extremity Problem General Chief complaint: Extremity Problem Stated complaint: left leg pain/lower back pain Source: patient Mode of arrival: ambulatory Limitations: no limitations History of Present Illness HPI Narrative: 56-year-old female presents with worsening pain to the right lower extremity after having her spinal stimulator removed Complaint: extremity pain Onset (ago): day(s) Pain Consistency: constant Location: right and lower extremity Severity scale (1-10): 7 Quality: burning, aching and constant Radiation: none Relieving factors: nothing Exacerbating factors: range of motion, weight bearing, walking, exertion and palpation Associated symptoms: denies other symptoms Context: recent surgery/procedure Related Data Home Medications Medication Instructions Recorded Confirmed cetirizine 10 mg tablet 10 mg PO DAILY 09/20/21 11/13/21 ipratropium bromide 42 mcg (0.06 2 spray INTRANASAL BID 09/20/21 11/13/21 %) nasal spray ketotifen fumarate 0.025 % (0.035 0 drp OPHTHALMIC (EYE) 09/20/21 11/05/21 %) eye drops fluticasone propionate 50 1 - 2 spray INTRANASAL QAM 11/13/21 11/13/21 mcg/actuation nasal spray,suspension Previous Rx's Medication Instructions Recorded cholecalciferol (vitamin D3) 50 2,000 unit PO DAILY 90 Days #90 cap 06/22/21 mcg (2,000 unit) capsule (Vitamin D3) [id number] 45 mg-folic 1 cap PO .QD #90 cap 06/22/21 acid 800 mcg-vit K 120 mcg capsule (Bariatric Multivitamins) lisinopril 10 mg tablet 5 mg PO DAILY 90 Days #45 tab 06/25/21 metoprolol succinate 25 mg 25 mg PO DAILY #90 tab 07/19/21 tablet,extended release 24 hr ferrous sulfate 325 mg (65 mg 325 mg PO DAILY #30 tab 07/31/21 iron) tablet vitamin A 10,000 unit capsule 1 cap PO DAILY #90 cap 08/22/21 furosemide 20 mg tablet 10 mg PO QAM 90 Days #45 tab 10/23/21 tramadol 50 mg tablet 50 mg PO Q6H PRN 30 Days #120 tab 11/05/21 cephalexin 500 mg tablet 1,000 mg PO Q8H 7 Days #42 tab 11/16/21 Allergies Allergy/AdvReac Type Severity Reaction Status Date / Time adhesive tape Allergy Intermediate skin Uncoded 11/22/21 11:07 breakdown Review of Systems Review of Systems: Constitutional: No Fever, No Chills ENT/Mouth: No Ear Pain, No Hoarseness, No sore throat Eyes: No Eye Pain, No Swelling, No Redness, No Foreign Body Cardiovascular: No Chest Pain, No SOB Respiratory: No Cough, No Dyspnea Gastrointestinal: No Nausea, No Vomiting, No Diarrhea, No abdominal Pain Genitourinary: No Dysuria, No Hematuria Musculoskeletal: positive right lower extremity pain, No Myalgias, No Joint Swelling Skin: No Skin lacerations, No rash Neuro: No Weakness, No Numbness, No Paresthesias, No Loss of Consciousness, No Dizziness, No Headache Psych: No Anxiety/Panic, No Depression Heme/Lymph: no easy bruising, no Lymphadenopathy Endocrine: No Polyuria, No Polydipsia Yes all other systems are reviewed and are negative PMFSH Past Medical History Attestation statement: The following information was validated with the patient. Source: old records reviewed Medical History Allergies Back pain Cardiac pacemaker in situ Cardiomyopathy Chronic pain syndrome Complex regional pain syndrome i of left lower limb GERD (gastroesophageal reflux disease) HTN (hypertension) Osteoarthritis of left knee Second degree AV block Spondylosis of lumbosacral spine with radiculopathy Surgical History Gastric bypass status for obesity History of esophagogastroduodenoscopy (EGD) History of permanent cardiac pacemaker placement Hx of breast reduction, elective Hx of cholecystectomy Hx of colonoscopy Family History Family History Father Asthma Mother HTN (hypertension) Brother Cardiac pacemaker Social History Social History Housing: Apartment Alcohol intake: former Patient Tobacco Use Status: Former Tobacco user Cigarette Packs Per Day: 0.5 Advance Directives: No Advance Directives Information Provided: No 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al status: unemployed and disabled 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 Physical Exam Vital Signs: Vital Signs: Last Vital Signs Temp 98.6 F 11/25/21 18:10 Pulse 65 11/25/21 18:10 Resp 19 11/25/21 18:10 BP 127/57 L 11/25/21 18:10 Pulse Ox 98 11/25/21 18:10 BMI result Body Mass Index 45.3 Appearance: Alert. Oriented X3. No acute distress. Eyes: Pupils equal, round and reactive to light. ENT: Pharynx normal. Neck: Normal inspection. Neck supple. CVS: Normal heart rate and rhythm. Pulses normal. Respiratory: No respiratory distress. Breath sounds normal. Abdomen: Soft and nontender. Morbidly obese. Skin: Surgical incisions well approximated, no erythema warmth or indication of infection at this time. Skin warm and dry. Normal skin color. Normal skin turgor. Extremities: No lower extremity edema. Walks with cane. Neuro: No motor deficit. No sensory deficit. Cranial nerves 2-12 intact. Course Course Course Narrative: 56-year-old female presents with worsening left leg pain after spinal stimulator removal on . Physical exam is unremarkable, patient is ambulatory with cane. Not report any fevers or chills. Patient is ambulatory with cane. States that this pain is chronic but worse. 18:30 wound well approximated, no indication of infection erythema or purulent drainage. Order for CT scan to rule out infection 20:31 CT scan is negative for acute findings require emergent intervention. Plan of care is for patient to follow-up with surgeon if symptoms persist and primary care physician for pain management.Patient verbalized understanding of and agrees to plan of care to discharge home. Verbalized understanding of signs and symptoms indicating need for emergent intervention MDM - Extremity (Nontraumatic) MDM Narrative Medical decision making narrative: Infection, abscess, compression fracture Differential Diagnosis Differential diagnosis: Likely cellulitis Medical Records Attestation: I reviewed the patient's medical records. Imaging Data Lumbar CT: Attestation: I personally reviewed and interpreted this imaging study as follows: Radiologist's impression: FINDINGS: The heights of the lumbar vertebrae are well-maintained. Subtle grade 1 anterolisthesis of L4 over L5. Mild facet joint arthritic changes are noted at the lower lumbar spine. Posterior appendages are intact.? No evidence of any fracture present. No evidence of any paraspinal, soft tissue hematoma present. The visualized retroperitoneum grossly appears unremarkable. Significant motion artifacts are present. CT/CT lumbar spine wo con IMPRESSION: No CT evidence of any compression fracture or paraspinal hematoma. Mild grade 1 anterolisthesis of L4 over L5 and facet joint arthritic changes at lower lumbar spine. Discharge Plan Discharge Clinical Impression: Left leg pain Patient Disposition: Home, Self-Care Instructions: Leg Pain (ED) Additional Instructions: Se le evalu? por empeoramiento del dolor en la pierna izquierda despu?s de que le quitaron el estimulador morrissey. La tomograf?a computarizada de la columna lumbar no muestra anomal?as ni indicios de infecci?n en el sitio quir?rgico. Aidan un seguimiento con el m?dico de atenci?n primaria o el cirujano si los s?ntomas persisten. Contin?e tomando los medicamentos seg?n lo prescrito. Breezy por elegir emani departamento de emergencias para manzano evaluaci?n. Por favor, aidan un seguimiento con el m?dico de atenci?n primaria seg?n sea necesario. Regrese al departamento de emergencias por cualquier s?ntoma nuevo, preocupante o que empeore. You were evaluated for worsening left leg pain after spinal stimulator was removed. CT scan of the lumbar spine does not show any abnormalities or ind ication of infection at the surgical site. Please follow-up with primary care physician and or surgeon if symptoms persist.\ Please continue taking medications as prescribed. Thank you for choosing this emergency department for evaluation. Please follow-up with primary care physician as needed. Return to the emergency department for any new, concerning, or worsening symptoms. Prescriptions: No Action Bariatric Multivitamins 45 mg iron- 800 mcg-120 mcg capsule 1 cap PO .QD Qty: 90 3RF cholecalciferol (vitamin D3) [Vitamin D3] 50 mcg (2,000 unit) capsule 2,000 unit PO DAILY 90 Days Qty: 90 3RF lisinopril 10 mg tablet 5 mg PO DAILY 90 Days Qty: 45 3RF Rx Instructions: taking 1/2 tablet daily metoprolol succinate 25 mg tablet extended release 24 hr 25 mg PO DAILY Qty: 90 1RF Rx Instructions: these are 25 mg tablets - take one daily ferrous sulfate 325 mg (65 mg iron) tablet 325 mg PO DAILY Qty: 30 11RF Rx Instructions: Take with 500 mcg vitamin C to increase absorbtion vitamin A 10,000 unit capsule 1 cap PO DAILY Qty: 90 2RF furosemide 20 mg tablet 10 mg PO QAM 90 Days Qty: 45 0RF tramadol 50 mg tablet 50 mg PO Q6H PRN (Reason: pain) 30 Days Qty: 120 0RF cephalexin 500 mg tablet 1,000 mg PO Q8H 7 Days Qty: 42 1RF fluticasone propionate 50 mcg/actuation spray,suspension 1 - 2 spray intranasal QAM 0RF ipratropium bromide 42 mcg (0.06 %) spray,non-aerosol 2 spray intranasal BID 0RF cetirizine 10 mg tablet 10 mg PO DAILY 0RF ketotifen fumarate 0.025 % (0.035 %) drops 0 drp ophthalmic (eye) 0RF Interventions: ED Discharge Assessment Last Done: 11/25/21 20:45 Discharge Date/Time: 11/25/21 20:54
== END 2021-11-25 20:54 | disposition home or self-care (01) ==
PROVIDERS: Emergency Provider Internal Medicine; PCP Internal Medicine
DX: M54.50 Low back pain, unspecified (principal); Z79.899 Other long term (current) drug therapy; Z87.891 Personal history of nicotine dependence
CPT/HCPCS: 72131; 99283

== ENCOUNTER → 2021-11-26 08:39 | Outpatient (BNVA) | payer OTHER, SELFPAY | PROVIDERS: PCP Internal Medicine; Visit Provider Anesthesiology | DX: M16.12 Unilateral primary osteoarthritis, left hip (principal); M47.27 Other spondylosis with radiculopathy, lumbosacral region; G90.522 Complex regional pain syndrome I of left lower limb; G89.4 Chronic pain syndrome | CPT/HCPCS: 99212 ==

== ENCOUNTER → 2021-12-04 13:39 | Outpatient (BNVA) | payer OTHER, SELFPAY | PROVIDERS: PCP Internal Medicine; Visit Provider Nurse Practitioner Family | DX: G47.33 Obstructive sleep apnea (adult) (pediatric) (principal) | CPT/HCPCS: 99212 ==

== ENCOUNTER → 2021-12-12 08:21 | Outpatient (BNVA) | payer OTHER, SELFPAY | PROVIDERS: PCP Internal Medicine; Referring Provider Internal Medicine; Visit Provider Internal Medicine Cardiovascular Disease | DX: I95.9 Hypotension, unspecified (principal); I42.9 Cardiomyopathy, unspecified; Z96.82 Presence of neurostimulator | CPT/HCPCS: 99212 ==

== ENCOUNTER → 2021-12-18 13:14 | Outpatient (BNVA) | payer OTHER, SELFPAY | PROVIDERS: PCP Internal Medicine; Referring Provider Internal Medicine; Visit Provider Internal Medicine Cardiovascular Disease | DX: Z13.89 Encounter for screening for other disorder (principal) ==

== ENCOUNTER → 2021-12-20 09:49 | Outpatient (BNVA) | payer OTHER, SELFPAY | PROVIDERS: PCP Internal Medicine; Visit Provider Anesthesiology | DX: Z51.81 Encounter for therapeutic drug level monitoring (principal); F11.20 Opioid dependence, uncomplicated; M16.12 Unilateral primary osteoarthritis, left hip; M47.27 Other spondylosis with radiculopathy, lumbosacral region; G89.4 Chronic pain syndrome; G90.522 Complex regional pain syndrome I of left lower limb | CPT/HCPCS: 99212 ==

== ENCOUNTER → 2022-01-03 14:18 | Outpatient (RCR) | payer OTHER, SELFPAY ==
--- NOTE | 2022-01-03 14:17 | MHC.PT.DC ---
[facility] [place] Office [place] Office [place] Office [address] Aiden Casas [address] [facility] [phone] F: [phone] F: [phone] F: [phone] F: [phone] Physical Therapy Discharge Report Diagnosis: Date of Surgery: Date of Evaluation: 04/20/20 Date of Discharge: 01/03/22 Treatments to Date: 12 Cancellations to Date: 4 No Shows to Date: 0 Discharge Status: Achieved Goals Improved Function Independent with HEP Discharge Summary: Per last note Pt I with HEP. Pt improv amb with sc. Pt L.E strength increased along with endurance. Sleeping improved. Pt c/o L knee pain. Pt met STG and most LTG's. L/S mobility continues with limitation. DC to [facility]P Electronically signed by: Heidy Agosto PT Please sign and return to therapist. Thank you for your referral.
== END | disposition home or self-care (01) ==
LOC: HO.PTCHIC 06-06 14:08
PROVIDERS: PCP Internal Medicine; Visit Provider Internal Medicine
DX: M54.5 Low back pain (principal)
CPT/HCPCS: 97110; 97112

== ENCOUNTER 2022-02-07 10:13 | Outpatient (REF) | payer OTHER, SELFPAY ==
--- NOTE | 2022-02-07 10:17 | EMG_ITS ---
Left tibial and peroneal motor studies were performed. Left superficial peroneal and sural sensory studies were performed. Tibial H-reflex was obtained and paraspinal muscles were tested with a needle. This study was somewhat limited because of technical difficulties related to obesity. 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 There was no obvious indication of any acute lumbar radiculitis. MD JAYCOB Iqbal/LUCIANO / [id number]
== END 2022-02-07 10:14 | disposition home or self-care (01) ==
LOC: HO.NEURO 10:13
PROVIDERS: PCP Internal Medicine; Visit Provider Anesthesiology
DX: G90.522 Complex regional pain syndrome I of left lower limb (principal); M54.50 Low back pain, unspecified; M54.16 Radiculopathy, lumbar region
CPT/HCPCS: 95886; 95909

== ENCOUNTER 2022-02-12 14:10 | Outpatient (REF) | payer OTHER, SELFPAY ==
[2022-02-13 08:53] LABS: BV Int Neg Control Negative (Negative); BV Int Pos Control Positive (Positive)
[2022-02-13 18:22] LABS: CT PCR NOT DETECTED (Not Detect.); NG PCR NOT DETECTED (Not Detect.)
[2022-02-19 02:13] LABS: HPV mRNA E6/E7 rflx Not Detected (Not Detected)
== END 2022-02-12 14:11 | disposition home or self-care (01) ==
LOC: HO.LAB 14:10
PROVIDERS: Visit Provider Advanced Practice Midwife
DX: Z01.411 Encounter for gynecological examination (general) (routine) with abnormal findings (principal); Z11.51 Encounter for screening for human papillomavirus (HPV); N93.9 Abnormal uterine and vaginal bleeding, unspecified; N95.0 Postmenopausal bleeding
CPT/HCPCS: 87480; 87491; 87510; 87591; 87624; 87660; 88142

== ENCOUNTER → 2022-02-18 10:01 | Outpatient (REF) | payer OTHER, SELFPAY ==
--- NOTE | 2022-02-18 10:39 | CA_ITS ---
Transthoracic Echocardiogram Patient (Last, First, Middle): Urvashi Arriaga D Gender: Female Date of : 1965 Age: 56 Procedure Date: 02/18/2022 Procedure Type: Transthoracic Echocardiogram Location: OP Height: 160.02 cm Weight: 117.94 kg BSA: 2.16 m2 Heart Rate: bpm BP: 122 / 84 mmHg Central Office Operator Supervisor: KOURTNEY Referring MD: Gabriel Salcedo MD Online Education Manager: Gabriel Salcedo MD Symptoms: I42.9 - Cardiomyopathy, unspecified Study Quality: Fair ECG Rhythm: Ventriculary paced rhythm with frequent PVCs Conclusions: - 1. Normal LV systolic function with impaired relaxation filling pattern 2. Normal cardiac valvular Doppler 3. Normal RV systolic pressure 4. No pericardial effusion Findings Left Ventricle Normal left ventricular size, thickness, and systolic function. The visually estimated ejection fraction is between 55-60%. There is paradoxical septal motion consistent with a right ventricular pacemaker. Spectral Doppler is indicative of an impaired relaxation filling pattern. E/E prime ratio is between 8 and 15 consistent with indeterminate filling pressures. Right Ventricle Mildly increased right ventricular cavity size. There is normal right ventricular systolic function. There is a pacemaker wire seen in the right ventricle. Atria The left atrium is likely dilated. Interatrial shunt cannot be excluded. The right atrium was not well visualized. Aortic Valve The aortic valve structure and function is likely normal. There is no aortic valve stenosis. There is no aortic valve regurgitation. Mitral Valve Normal mitral valve structure and function. There is trace mitral valve regurgitation. There is no mitral valve stenosis. Pulmonic Valve The pulmonic valve was not well visualized. Tricuspid Valve Likely normal tricuspid valve structure and function. There is trace tricuspid valve regurgitation. The right ventricular systolic pressure is normal. The right ventricular systolic pressure is 16 mmHg. Normal right atrial pressure. There is no evidence of pulmonary hypertension. Great Vessels All visible segments of the aorta are normal in size. The pulmonary artery was not well visualized. Venous The inferior vena cava is normal in size and collapses greater than 50% with inspiration. Pericardium/Pleural There is no evidence of pericardial effusion. Prior Study Comparison No significant change compared to prior study dated: 11/02/2020. Measurements 2D Linear Measurements IVSd: 1.11 0.6-0.9/0.6-1.0 cm LVIDd: 4.79 3.9-5.3/4.2-5.9 cm LVIDd Index: 2.22 2.4-3.2/2.2-3.1 cm/m2 LVIDs: 3.73 2.0-3.6 cm LVPWd: 0.94 0.7-1.1 cm LA Diam: 3.40 2.7-3.8/3.0-4.0 cm LAIDs Index: 1.57 1.5-2.3 cm/m2 LV Mass: 217.79 67-162/88-224 g LV Mass Index: 100.83 43-95/49-115 g/m2 LVOT Diam: 2.30 3.0+(-)1.3 cm 2D Systolic Function EF 4C: 60.20 >55% EF 2C: 55.50 >55% EF BiP: 59.20 >55% Mitral Valve MV Pk E: 0.95 MV PK A: 1.03 MV Decel Time: 362.00 E/A: 0.90 E'Lateral: 14.00 E'Medial: 8.27 E/E' Med: 11.50 E/E' Lat: 6.80 PHT: 106.00 MVA PHT: 2.08 Decel Letcher: 2.62 Aortic Valve AoV Pk Wilfredo: 1.58 AoV Mn Wilfredo: 1.06 AoV VTI: 0.36 AoV Pk Grad: 10.00 Aov Mn Grad: 6.00 PIERO Cont.VTI: 2.65 LVOT LVOT Pk Wilfredo: 0.97 LVOT Mn Wilfredo: 0.60 LVOT VTI: 0.23 LVOT Pk Grad: 4.00 LVOT Mn Grad: 2.00 LVOT Diam: 2.30 LVOT Area: 4.15 Diastolic Function MV Pk E: 0.95 MV Pk A: 1.03 E/A: 0.90 E'Medial: 8.27 E/E' Med: 11.50 E' Laterial: 14.00 E/E' Lat: 6.80 Right Ventricle TAPSE (mm): 19.80 TVS' Wilfredo: 11.00 Tricuspid Valve TR Pk Wilfredo: 1.79 TR Pk Grad: 13.00 RA Press: 3.00 RVSP: 16.00 Great Vessels Aorta Sinus of Valsalva: 4.04 2.0-3.[address] Ridge: 3.21 1.7-3.4 cm Ao Asc: 3.60 2.1-3.4 cm Ao Arch: 3.20 Updated in Other Vendor System with Status of Final Gabriel Salcedo MD electronically signed on 02/19/2022 1:38:44 PM with status of Final
== END ==
LOC: HO.CARD 10:01
PROVIDERS: Visit Provider Internal Medicine Cardiovascular Disease
DX: I42.9 Cardiomyopathy, unspecified (principal); M16.12 Unilateral primary osteoarthritis, left hip; M47.27 Other spondylosis with radiculopathy, lumbosacral region; G89.4 Chronic pain syndrome; G90.522 Complex regional pain syndrome I of left lower limb; Z79.899 Other long term (current) drug therapy
CPT/HCPCS: 93306; 99212

== ENCOUNTER 2022-03-07 08:36 | Outpatient (REF) | payer OTHER, SELFPAY ==
--- NOTE | ~2022-03-07 | MM_ITS ---
EXAMINATION: MM SCREENING DIGITAL BREAST TOMOSYNTHESIS, BILATERAL CLINICAL INFORMATION: Screening. Asymptomatic. The lifetime risk of breast cancer based on the Tyrer-Cuzick Model is 7%. COMPARISON: Mammography: 11/23/2020, 07/28/2019, 02/16/2018 TECHNIQUE: Digital breast tomosynthesis is performed in both the craniocaudal and mediolateral oblique views along with computer-aided detection (CAD). Synthesized 2D images are generated from the tomosynthesis. Additional left MLO view is provided. FINDINGS: There are scattered areas of fibroglandular density (ACR BI-RADS breast composition Category b). There are no significant masses, abnormal calcifications, or other abnormalities. Parenchymal pattern is similar to prior studies. There is a pacemaker generator overlying and partly obscuring the posterior left axilla on MLO view. Skin contours are smooth. No significant changes. MM/MM tomosynthesis screening BI IMPRESSION: No mammographic evidence of malignancy. ASSESSMENT: BI-RADS 1: Negative RECOMMENDATION: Routine annual mammography screening. This patient's information was entered into a reminder system with a target due date for their next mammogram.
== END 2022-03-07 08:37 | disposition home or self-care (01) ==
LOC: HO.MAMMO 08:36
PROVIDERS: Visit Provider Internal Medicine
DX: Z12.31 Encounter for screening mammogram for malignant neoplasm of breast (principal)
CPT/HCPCS: 77063; 77067

== ENCOUNTER → 2022-03-18 12:47 | Outpatient (BNVA) | payer OTHER, SELFPAY | PROVIDERS: PCP Internal Medicine; Referring Provider Internal Medicine; Visit Provider Internal Medicine Cardiovascular Disease | DX: Z45.018 Encounter for adjustment and management of other part of cardiac pacemaker (principal); I42.9 Cardiomyopathy, unspecified | CPT/HCPCS: 93280; 99212 ==

== ENCOUNTER 2022-03-28 09:40 | Outpatient (REF) | payer OTHER, SELFPAY ==
--- NOTE | ~2022-03-28 | US_ITS ---
EXAMINATION: US PELVIS CLINICAL INFORMATION: Postmenopausal bleeding COMPARISON: Previous pelvic ultrasound September 2016 TECHNIQUE: Ultrasound of the pelvis is performed using both transabdominal and transvaginal transducers along with Doppler. Transvaginal imaging is performed due to inadequate visualization transabdominally. FINDINGS: The uterus is anteverted and measures 6 x 3 x 4 cm. There is a 5 x 4 x 7 mm hypoechoic lesion in the right anterior uterine fundus suggestive of a small fibroid. No other focal uterine lesion is seen. Endometrial thickness is normal measuring 0.2 cm. There is a nabothian cyst in the cervix. The ovaries are normal. The right ovary measures 2.3 x 1.6 x 1.8 cm. Left ovary measures 2.4 x 1.4 x 2 cm. There is no fluid in the pelvis US/US pelvic and transvaginal IMPRESSION: Normal thickness endometrium. Probable small fundal uterine fibroid. Normal-appearing ovaries.
[2022-03-28 11:49] LABS: Thyroid Stimulating Hormone 1.97 uIU/mL (0.32-4.0)
[2022-03-30 01:03] LABS: Follicle Stimulating Hormone 53.3 mIU/mL
== END 2022-03-28 09:41 | disposition home or self-care (01) ==
LOC: HO.US 09:40
PROVIDERS: PCP Internal Medicine; Visit Provider Advanced Practice Midwife
DX: N95.0 Postmenopausal bleeding (principal)
CPT/HCPCS: 36415; 76830; 76856; 83001; 84443

== ENCOUNTER → 2022-04-04 14:12 | Outpatient (BNVA) | payer OTHER, SELFPAY | PROVIDERS: PCP Internal Medicine; Visit Provider Physician Assistant Surgical | DX: E66.01 Morbid (severe) obesity due to excess calories (principal); Z98.84 Bariatric surgery status | CPT/HCPCS: 99212 ==

== ENCOUNTER 2022-04-08 11:58 | Outpatient (REF) | payer OTHER, SELFPAY ==
[2022-04-08 12:38] LABS: MANUAL DIFF FLAG NO
[2022-04-08 13:08] LABS: Basophils Percent Auto 0.4 % (0-2); Eosinophils Absolute Auto 0.1 X10*3/uL (0.0-0.4); Eosinophils Percent Auto 1.3 % (0-4); Imm Gran Abs Auto 0.01 X10*3/uL (0.00-0.03); Imm Gran Pct Auto 0.2 % (0.0-0.4); Lymphocytes Absolute Auto 1.9 X10*3/uL (1.2-4.9); Lymphocytes Percent Auto 35.5 % (20-40); Mean Corpuscular HGB Conc 31.6 g/dl (31.0-35.0); Mean Corpuscular Hemoglobin 26.8 pg (27.0-33.0); Mean Platelet Volume 11.4 fL (9.4-12.3); Monocytes Absolute Auto 0.4 X10*3/uL (0.1-1.2); Monocytes Percent Auto 7.4 % (2-11); Neutrophils Absolute Auto 2.9 x10*3/uL (2.0-8.3); Neutrophils Percent Auto 55.2 % (45-73); Platelet Count 185 X10*3/uL (160-400); Red Blood Count 4.47 X10*6/uL (4.20-5.50); Red Cell Distribution Width 12.8 % (11.0-16.0); White Blood Count 5.3 X10*3/uL (4.8-10.8)
[2022-04-08 13:15] LABS: Estimated Average Glucose 117 mg/dL; Hemoglobin A1c % 5.7 %
[2022-04-08 13:45] LABS: Alanine Aminotransferase 17 U/L (0-31); Albumin Level 4.2 g/dL (3.5-5.0); Alkaline Phosphatase 60 U/L (39-117); Anion Gap 15 (12-20); Aspartate Amino Transferase 15 U/L (5-31); Bilirubin Total 0.4 mg/dL (0.0-1.0); Blood Urea Nitrogen 13 mg/dL (9-16); C Reactive Protein 0.35 mg/dL (< or = 0.50); Calcium 10.1 mg/dL (8.4-10.2); Carbon Dioxide 25 mmol/L (22-29); Chloride 107 mmol/L (96-108); Cholesterol 156 mg/dL; Estimated Glomerular Filt Rate > 60; Glucose Random 99 mg/dL (60-115); HDL Cholesterol 44 mg/dL; Iron 91 mcg/dL (30-160); LDL Cholesterol Calculated 96 mg/dl; Percent Iron Saturation 30 % (15-50); Potassium 4.1 mmol/L (3.3-5.1); Sodium 143 mmol/L (135-145); Total Iron Binding Capacity 302 mcg/dL (228-428); Triglycerides 82 mg/dL; Unsaturated Iron Binding 211 ug/dL
[2022-04-08 14:10] LABS: Ferritin 432 ng/mL (10-250); Insulin 14 uU/mL (2-29); Vitamin D 25-OH Total 32.1 ng/mL (>30)
[2022-04-08 14:12] LABS: Folate 19.1 ng/mL (> or = 4.0); Vitamin B12 976 pg/mL (200-900)
[2022-04-09 12:48] LABS: PTHI 65 pg/mL (16-77)
[2022-04-11 05:26] LABS: Zinc 76 mcg/dL (60-130)
[2022-04-13 20:26] LABS: Vitamin A 30 mcg/dL (38-98)
[2022-04-20 07:33] LABS: Vitamin B1 31 nmol/L (8-30)
== END 2022-04-08 11:59 | disposition home or self-care (01) ==
LOC: HO.LAB 11:58
PROVIDERS: PCP Internal Medicine; Visit Provider Physician Assistant Surgical
DX: Z98.84 Bariatric surgery status (principal)
CPT/HCPCS: 36415; 80053; 80061; 82306; 82607; 82728; 82746; 83036; 83525; 83540; 83970; 84425; 84443; 84590; 84630; 85025; 86140

== ENCOUNTER 2022-04-11 09:43 | Outpatient (REF) | payer OTHER, SELFPAY | END 2022-04-11 09:44 | disposition home or self-care (01) | LOC: HO.LAB 09:43 | PROVIDERS: PCP Internal Medicine; Visit Provider Advanced Practice Midwife | DX: N95.0 Postmenopausal bleeding (principal); Z71.2 Person consulting for explanation of examination or test findings | CPT/HCPCS: 58100; 88305 ==

== ENCOUNTER → 2022-04-15 09:39 | Outpatient (BNVA) | payer OTHER, SELFPAY | PROVIDERS: PCP Internal Medicine; Visit Provider Anesthesiology | DX: Z51.81 Encounter for therapeutic drug level monitoring (principal); F11.20 Opioid dependence, uncomplicated | CPT/HCPCS: 99211 ==

== ENCOUNTER → 2022-04-24 14:58 | Outpatient (BNVA) | payer OTHER, SELFPAY | PROVIDERS: PCP Internal Medicine; Visit Provider Advanced Practice Midwife | DX: Z71.2 Person consulting for explanation of examination or test findings (principal); N95.0 Postmenopausal bleeding | CPT/HCPCS: 99212 ==

== ENCOUNTER → 2022-05-13 09:53 | Outpatient (BNVA) | payer OTHER, SELFPAY | PROVIDERS: PCP Internal Medicine; Visit Provider Orthopaedic Surgery | DX: M17.0 Bilateral primary osteoarthritis of knee (principal) | CPT/HCPCS: 20610; 99212; J1100 ==

== ENCOUNTER → 2022-05-16 15:01 | Outpatient (BNVA) | payer OTHER, SELFPAY | PROVIDERS: PCP Internal Medicine; Visit Provider Physician Assistant Surgical | DX: E66.01 Morbid (severe) obesity due to excess calories (principal); Z68.41 Body mass index [BMI] 40.0-44.9, adult; Z98.84 Bariatric surgery status | CPT/HCPCS: 99212 ==

== ENCOUNTER → 2022-06-25 12:40 | Outpatient (BNVA) | payer OTHER, SELFPAY | PROVIDERS: PCP Internal Medicine; Visit Provider Physician Assistant Surgical | DX: E66.01 Morbid (severe) obesity due to excess calories (principal); Z68.41 Body mass index [BMI] 40.0-44.9, adult; Z98.84 Bariatric surgery status | CPT/HCPCS: 99212 ==

== ENCOUNTER → 2022-08-19 13:12 | Outpatient (BNVA) | payer OTHER, SELFPAY | PROVIDERS: PCP Internal Medicine; Visit Provider Physician Assistant Surgical | DX: E66.01 Morbid (severe) obesity due to excess calories (principal); Z98.84 Bariatric surgery status; Z68.41 Body mass index [BMI] 40.0-44.9, adult | CPT/HCPCS: 99212 ==

== ENCOUNTER → 2022-09-05 08:09 | Outpatient (BNVA) | payer OTHER, SELFPAY | PROVIDERS: PCP Internal Medicine; Visit Provider Anesthesiology | DX: G89.4 Chronic pain syndrome (principal); M16.12 Unilateral primary osteoarthritis, left hip; M47.27 Other spondylosis with radiculopathy, lumbosacral region; G90.522 Complex regional pain syndrome I of left lower limb; Z79.891 Long term (current) use of opiate analgesic | CPT/HCPCS: 99212 ==

== ENCOUNTER → 2022-09-09 09:21 | Outpatient (BNVA) | payer OTHER, SELFPAY | PROVIDERS: PCP Internal Medicine; Visit Provider Orthopaedic Surgery | DX: M17.0 Bilateral primary osteoarthritis of knee (principal) | CPT/HCPCS: 20610; 99212; J1100 ==

== ENCOUNTER → 2022-09-16 12:56 | Outpatient (BNVA) | payer OTHER, SELFPAY | PROVIDERS: PCP Internal Medicine; Referring Provider Internal Medicine; Visit Provider Internal Medicine Cardiovascular Disease | DX: Z45.018 Encounter for adjustment and management of other part of cardiac pacemaker (principal); I42.9 Cardiomyopathy, unspecified | CPT/HCPCS: 93005; 93280; 99212 ==

== ENCOUNTER → 2022-10-30 08:17 | Outpatient (BNVA) | payer OTHER, SELFPAY | PROVIDERS: PCP Internal Medicine; Visit Provider Anesthesiology | DX: Z51.81 Encounter for therapeutic drug level monitoring (principal); F11.20 Opioid dependence, uncomplicated; M16.12 Unilateral primary osteoarthritis, left hip; M47.27 Other spondylosis with radiculopathy, lumbosacral region; G90.522 Complex regional pain syndrome I of left lower limb; G89.4 Chronic pain syndrome | CPT/HCPCS: 99212 ==

== ENCOUNTER → 2022-11-11 10:11 | Outpatient (BNVA) | payer OTHER, SELFPAY | PROVIDERS: PCP Internal Medicine; Visit Provider Physician Assistant Surgical | DX: E66.01 Morbid (severe) obesity due to excess calories (principal); Z98.84 Bariatric surgery status; Z68.41 Body mass index [BMI] 40.0-44.9, adult | CPT/HCPCS: 99212 ==

== ENCOUNTER → 2022-11-27 08:22 | Outpatient (BNVA) | payer OTHER, SELFPAY | PROVIDERS: PCP Internal Medicine; Visit Provider Anesthesiology | DX: Z51.81 Encounter for therapeutic drug level monitoring (principal); F11.20 Opioid dependence, uncomplicated; M16.12 Unilateral primary osteoarthritis, left hip; M47.27 Other spondylosis with radiculopathy, lumbosacral region; G90.522 Complex regional pain syndrome I of left lower limb; G89.4 Chronic pain syndrome | CPT/HCPCS: 99212 ==

== ENCOUNTER → 2022-12-09 08:23 | Outpatient (BNVA) | payer OTHER, SELFPAY | PROVIDERS: PCP Internal Medicine; Visit Provider Orthopaedic Surgery | DX: M17.0 Bilateral primary osteoarthritis of knee (principal) | CPT/HCPCS: 20610; 99212; J1100 ==

== ENCOUNTER → 2022-12-25 13:58 | Outpatient (BNVA) | payer OTHER, SELFPAY | PROVIDERS: PCP Internal Medicine; Visit Provider Anesthesiology | DX: Z51.81 Encounter for therapeutic drug level monitoring (principal); F11.20 Opioid dependence, uncomplicated; M16.12 Unilateral primary osteoarthritis, left hip; M47.27 Other spondylosis with radiculopathy, lumbosacral region; G90.522 Complex regional pain syndrome I of left lower limb; G89.4 Chronic pain syndrome | CPT/HCPCS: 99212 ==

== ENCOUNTER → 2023-01-29 11:12 | Outpatient (BNVA) | payer OTHER, SELFPAY | PROVIDERS: PCP Internal Medicine; Visit Provider Anesthesiology | DX: Z79.891 Long term (current) use of opiate analgesic (principal); Z11.52 Encounter for screening for COVID-19 | CPT/HCPCS: 99211; C9803 ==

== ENCOUNTER → 2023-02-14 09:31 | Outpatient (BNVA) | payer OTHER, SELFPAY | PROVIDERS: PCP Internal Medicine; Visit Provider Advanced Practice Midwife ==

== ENCOUNTER → 2023-02-18 11:17 | Outpatient (BNVA) | payer OTHER, SELFPAY | PROVIDERS: PCP Internal Medicine; Visit Provider Nurse Practitioner Family | DX: G47.33 Obstructive sleep apnea (adult) (pediatric) (principal); Z99.89 Dependence on other enabling machines and devices | CPT/HCPCS: 99212 ==

== ENCOUNTER → 2023-02-26 12:11 | Outpatient (REF) | payer OTHER, SELFPAY ==
--- NOTE | 2023-02-26 12:15 | CA_ITS ---
Transthoracic Echocardiogram Patient (Last, First, Middle): Urvashi Arriaga D Gender: Female Date of : 1965 Age: 57 Procedure Date: 02/26/2023 Procedure Type: Transthoracic Echocardiogram Location: OP Height: 160. cm Weight: 107.05 kg BSA: 2.07 m2 Heart Rate: 48 bpm BP: 115 / 70 mmHg Faculty Member: LYNNE Referring MD: Gabriel Salcedo MD Order Analyst: Gabriel Salcedo MD Symptoms: I42.9 - Cardiomyopathy, unspecified Study Quality: Fair ECG Rhythm: Frequent ventricular premature beats Conclusions: - 1. Low normal LV ejection fraction 50-55% with impaired relaxation filling pattern 2. Normal cardiac valvular Doppler 3. Normal RV systolic pressure 4. No gross pericardial effusion Findings Left Ventricle Normal left ventricular cavity size. There is normal left ventricular wall thickness. The left ventricular systolic function is low normal. The visually estimated ejection fraction is between 50-55%. Spectral Doppler is indicative of an impaired relaxation filling pattern. E/E prime ratio is between 8 and 15 consistent with indeterminate filling pressures. Right Ventricle Mildly increased right ventricular cavity size. There is normal right ventricular systolic function. There is a pacemaker wire seen in the right ventricle. Atria The left atrium is normal in size. There is no evidence of interatrial shunt. The right atrium is likely dilated. A pacemaker wire is identified in the right atrium. Aortic Valve Normal aortic valve structure and function. There is no aortic valve stenosis. There is no aortic valve regurgitation. Mitral Valve There is mild anterior and posterior mitral leaflet thickening. There is trace mitral valve regurgitation. There is no mitral valve stenosis. Pulmonic Valve The pulmonic valve is likely normal. There is trace pulmonic valve regurgitation. Tricuspid Valve Normal tricuspid valve structure. There is mild tricuspid valve regurgitation. The right ventricular systolic pressure is normal. The right ventricular systolic pressure is 25 mmHg. Normal right atrial pressure. There is no evidence of pulmonary hypertension. Great Vessels The pulmonary artery was not well visualized. There is mild dilatation of the sinuses of Valsalva. Venous The inferior vena cava is mildly dilated and collapses greater than 50% with inspiration. Pericardium/Pleural There is no evidence of pericardial effusion. Prior Study Comparison Changes noted compared to prior study dated: 02/18/2022. Low normal LV systolic function noted Measurements 2D Linear Measurements IVSd: 1.13 0.6-0.9/0.6-1.0 cm LVIDd: 4.94 3.9-5.3/4.2-5.9 cm LVIDd Index: 2.39 2.4-3.2/2.2-3.1 cm/m2 LVIDs: 4.13 2.0-3.6 cm LVPWd: 0.90 0.7-1.1 cm LA Diam: 3.80 2.7-3.8/3.0-4.0 cm LAIDs Index: 1.84 1.5-2.3 cm/m2 LV Mass: 226.93 67-162/88-224 g LV Mass Index: 109.63 43-95/49-115 g/m2 LVOT Diam: 2.20 3.0+(-)1.3 cm 2D Systolic Function EF 4C: 48.30 >55% EF 2C: 55.10 >55% EF BiP: 51.20 >55% Mitral Valve MV Pk E: 1.05 MV PK A: 1.13 MV Decel Time: 309.00 E/A: 0.90 E'Lateral: 8.16 E'Medial: 7.07 E/E' Med: 14.90 E/E' Lat: 12.90 PHT: 90.00 MVA PHT: 2.44 Decel [place]: 3.41 Aortic Valve AoV Pk Wilfredo: 1.70 AoV Mn Wilfredo: 1.18 AoV VTI: 0.33 AoV Pk Grad: 12.00 Aov Mn Grad: 7.00 PIERO Cont.VTI: 2.45 LVOT LVOT Pk Wilfredo: 1.05 LVOT Mn Wilfredo: 0.77 LVOT VTI: 0.21 LVOT Pk Grad: 4.00 LVOT Mn Grad: 3.00 LVOT Diam: 2.20 LVOT Area: 3.80 Diastolic Function MV Pk E: 1.05 MV Pk A: 1.13 E/A: 0.90 E'Medial: 7.07 E/E' Med: 14.90 E' Laterial: 8.16 E/E' Lat: 12.90 Right Ventricle TAPSE (mm): 30.60 TVS' Wilfredo: 13.50 Tricuspid Valve TR Pk Wilfredo: 2.07 TR Pk Grad: 17.00 RA Press: 8.00 RVSP: 25.00 Great Vessels Aorta Sinus of Valsalva: 4.00 2.0-3.5 cm Pulmonary Valve PV Pk Wilfredo: 1.06 Peak PV Grad: 4.00 Updated in Other Vendor System with Status of Final Gabriel Salcedo MD electronically signed on 02/27/2023 2:23:56 PM with status of Final
== END ==
LOC: HO.CARD 12:11
PROVIDERS: PCP Internal Medicine; Visit Provider Internal Medicine Cardiovascular Disease
DX: I42.9 Cardiomyopathy, unspecified (principal)
CPT/HCPCS: 93306; 99212

== ENCOUNTER → 2023-03-07 14:44 | Outpatient (BNVA) | payer OTHER, SELFPAY | PROVIDERS: PCP Internal Medicine; Visit Provider Orthopaedic Surgery | DX: M65.341 Trigger finger, right ring finger (principal); R20.0 Anesthesia of skin; R20.2 Paresthesia of skin | CPT/HCPCS: 20550; 99202; J1100 ==

== ENCOUNTER 2023-03-17 12:27 | Outpatient (AMB) | payer OTHER, SELFPAY ==
[2023-03-17 12:42] VITALS: BP 112/70; PULSE 54; BMI 43.5
--- NOTE | 2023-03-17 12:42 | MHC.OFFVIS ---
Intake Vital Signs 03/17/23 12:42 Height 5 ft 2 in Weight 238 lb 1.588 oz BMI 43.5 BP 112/70 Blood Pressure Location Lt brachial Position Sitting Pulse 54 Intake Visit Reasons: 6 mth fu w/ [employer] Intake Note: 6 month follow-up with [employer] feeling good General Office Dispatcher Required: Yes General Office Dispatcher Name: Ab mccormick Allergies adhesive tape Allergy (Intermediate, Verified 03/07/23 14:55) skin breakdown Medication List - Last Reconciled 03/17/23 by Gabriel Salcedo MD cetirizine 10 mg PO DAILY cholecalciferol (vitamin D3) (Vitamin D3) 2,000 units PO DAILY 90 days furosemide 10 mg (1/2 x 20 mg) PO QAM 90 days gabapentin 400 mg PO TID 30 days ipratropium bromide 2 sprays intranasal BID ketotifen fumarate 0.025%(0.035%) 0 drps ophthalmic (eye) lisinopril 2.5 mg PO DAILY metoprolol succinate ER 25 mg PO DAILY pavmcgltccyu-emp-pdqm-FA-vit K 45 mg iron- 800 mcg-120 mcg (Bariatric Multivitamins) 1 cap PO .QD salicylic acid 6% 1 appl topical BEDTIME 7 days tramadol 50 mg PO BID PRN 30 days vitamin A palmitate 20,000 units PO DAILY walker As directed HPI HPI Comments History of Present Illness Details Urvashi comes for follow-up. History was obtained with help of executive producer promos. She has no new cardiac symptoms. Currently in transition with a CPAP machine. Takes all her medications. Denies any lightheadedness, syncope. Denies any heart failure symptoms. No prolonged palpitation irregular heartbeat. Recent echocardiogram shows low normal LVEF of 50-55%. [facility] Medical History Allergies Back pain Cardiac pacemaker in situ Cardiomyopathy Chronic pain syndrome Complex regional pain syndrome i of left lower limb GERD (gastroesophageal reflux disease) HTN (hypertension) Lumbar back pain with radiculopathy affecting left lower extremity Osteoarthritis of left knee Second degree AV block Spondylosis of lumbosacral spine with radiculopathy Stress incontinence Urinary incontinence in female Surgical History Gastric bypass status for obesity H/O gastric bypass History of esophagogastroduodenoscopy (EGD) History of permanent cardiac pacemaker placement Hx of breast reduction, elective Hx of cholecystectomy Hx of colonoscopy Family History Father Asthma Mother HTN (hypertension) Brother Cardiac pacemaker Sister Colon cancer Metastatic cancer Social History Housing: Apartment Alcohol intake: former Patient Tobacco Use Status: Former Tobacco user Quit Date: 7 yrs ago Cigarette Packs Per Day: 0.5 e-Cigarette/Vaping Use: Never Used service: No 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al status: unemployed and disabled 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 Cognitive needs: No Hearing needs: No Vision needs: Yes Review of Systems Const Denies chills, Denies fatigue, Denies fever(s), Denies frequent falls, Denies weakness, Denies weight gain and Denies weight loss ENT Denies dizziness Card Denies chest pain, Denies leg edema, Denies lightheadedness, Denies palpitations, Denies dyspnea, Denies dyspnea on exertion, Denies orthopnea and Denies other (loss of consciousness) Resp Denies cough, Denies dyspnea and Denies dyspnea on exertion GI Denies hematochezia and Denies change in stool character Musc Denies abnormal gait, Denies muscle weakness, Denies numbness, Denies radiating pain into limb and Denies tingling Neuro Denies abnormal gait, Denies dizziness, Denies frequent falls, Denies numbness, Denies tingling and Denies weakness Endo Denies fatigue and Denies palpitations Physical Exam Vital Signs: Last Vital Signs Pulse 54 03/17/23 12:42 BP 112/70 03/17/23 12:42 BMI result Body Mass Index 43.5 Const General: cooperative, comfortable, no acute distress, alert and awake Nutritional Appearance: obese Orientation/consciousness: patient oriented x3 Limitations: ambulation with cane Neck Neck: Yes trachea midline, Yes supple and Yes no JVD Resp Effort & Inspection: normal respiratory effort Auscultation: clear to auscultation bilaterally Cardio Jugular venous distension: no JVD Palpation: normal PMI Rate: regular rate Rhythm: regular rhythm Heart sounds: S1 normal heart sound present, S2 normal heart sound present, no click, no gallops, no murmurs and no rubs GI Auscultation: normal bowel sounds Skin General skin exam: no rashes or lesions noted Neuro General: patient oriented x3 and no focal motor deficits Extrem General: Yes no clubbing, cyanosis or edema Psych Appearance: grossly normal Office Procedures Cardiac Device Check Cardiac Device Check Details: Dual-chamber [employer] pacemaker in place. Programmed in DDDR at 60 beats per minute. Ventricular pacing 71% time. No arrhythmias detected. Atrial ventricular pacing thresholds adequate and stable. Pacing lead impedance is stable. Atrial ventricular sensing is adequate. Battery life is about 1 year [id number] Cardiac Device Check, pacemaker dual lead Procedure code (CPT) selection complete Assessment & Plan Assessment & Plan (1) Cardiac pacemaker in situ: Code(s): Z95.0 - Presence of cardiac pacemaker Plan: Cardiac pacemaker in-situ for advanced AV block. Pacemaker is working well. Reprogrammed for adequate function. Will follow remotely in 3 months and follow up in the clinic in 6 months time. Battery life is about 1 year. (2) Cardiomyopathy: Code(s): I42.9 - Cardiomyopathy, unspecified Plan: Prior history of cardiomyopathy process which has improved with neurohormonal modulation CPAP therapy. Continue current neurohormonal modulation CPAP therapy importance CPAP therapy was discussed. Importance of weight reduction was discussed. Signs and symptoms of heart failure were discussed. Avoidance of salt loading was discussed. Will follow up in the clinic in 6 months time, sooner p.r.n.. Thank you for allowing me to partake in her care Coding Level of Care Code Est Pt Level 4 (72935) Diagnoses Cardiac pacemaker in situ Z95.0 Cardiomyopathy I42.9 CPT Codes Cardiac Device Check - Cardiac Device 2: [id number] Cardiac Device Check, pacemaker dual lead ([id number])
== END 2023-03-17 13:24 | disposition home or self-care (01) ==
PROVIDERS: Visit Provider Internal Medicine Cardiovascular Disease
DX: I42.9 Cardiomyopathy, unspecified (principal); Z95.0 Presence of cardiac pacemaker
CPT/HCPCS: 93280; 99214

== ENCOUNTER → 2023-03-17 12:27 | Outpatient (BNVA) | payer OTHER, SELFPAY | PROVIDERS: Visit Provider Internal Medicine Cardiovascular Disease | DX: I42.9 Cardiomyopathy, unspecified (principal); Z45.018 Encounter for adjustment and management of other part of cardiac pacemaker | CPT/HCPCS: 93280; 99212 ==

== ENCOUNTER 2023-03-20 10:53 | Outpatient (AMB) | payer OTHER, SELFPAY ==
--- NOTE | 2023-03-20 10:57 | A.OFFVIS_ITS ---
Intake Intake Visit Reasons: urinary incontinence Intake Note: NEW Patient presents today to established treatment for Urinary Incontinence: Meds- Furosemide Allergies to Antibiotic- No Known Allergies Blood Thinner- None PVR- 7ml File System Installer Required: Yes File System Installer Language: Hedge Fund Manager Name: Josue Thompson, /[facility] Information Interpreted: clinical only School Bus Aide: School Bus Aide Present Accompanied by: Self / Same As Patient Allergies adhesive tape Allergy (Intermediate, Verified 05/09/23 10:16) skin breakdown Patient : Yes HPI HPI Comments History of Present Illness Details Urvashi is a 57-year-old female who presents today to the office for urinary incontinence. 03/20/23-- The patient is a Estonian-speaking female. A certified capsule filling machine operator was present during the visit. She has comorbidities, obesity, sleep apnea. She denies history of a hysterectomy. She has had 3 pregnancies, 2 vaginal deliveries, 1 miscarriage.? Largest weight of her babies are less than 8 pounds. The patient complains of urinary frequency and intermittent urinary incontinence. She is up 1 to 2 times at night to urinate and needs to remove the sleep apnea mask to use the bathroom. She was recently evaluated by her TICKET COUNTER and had a pelvic exam at that time and was referred to me for her urinary symptoms of incontinence. I have discussed further evaluation with a renal ultrasound and office cystoscopy and will give her a trial of Myrbetriq 50 mg daily. The patient states that she is on a diuretic due to lower extremity edema. Evaluation today ? UA?Trace blood. Leukocytes negative. Plan: Ordered a renal ultrasound to be obtained before the cystoscopy. Prescribed Myrbetriq 50 mg daily. Follow up in 2 months for office cystoscopy. [facility] Medical History Allergies Back pain Cardiac pacemaker in situ Cardiomyopathy Chronic pain syndrome Complex regional pain syndrome i of left lower limb GERD (gastroesophageal reflux disease) HTN (hypertension) Lumbar back pain with radiculopathy affecting left lower extremity Osteoarthritis of left knee Second degree AV block Spondylosis of lumbosacral spine with radiculopathy Stress incontinence Urinary incontinence in female Surgical History H/O gastric bypass Gastric bypass status for obesity Hx of cholecystectomy Hx of breast reduction, elective Hx of colonoscopy History of esophagogastroduodenoscopy (EGD) History of permanent cardiac pacemaker placement Family History (Updated 05/09/23 @ 10:23 by Sanna Munroe CMA) Father Asthma Mother HTN (hypertension) Alzheimer disease Brother Cardiac pacemaker Sister Colon cancer Metastatic cancer Social History (Updated 05/09/23 @ 10:23 by Sanna Munroe CMA) Housing: Apartment Alcohol intake: former Patient Tobacco Use Status: Former Tobacco user Quit Date: 7 yrs ago Cigarette Packs Per Day: 0.5 e-Cigarette/Vaping Use: Never Used service: No 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al status: unemployed and disabled 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 Cognitive needs: No Hearing needs: No Vision needs: Yes Review of Systems Const All systems reviewed & are unremarkable except as noted in HPI and below Reports no additional complaints Eyes Reports no additional complaints ENT Reports no additional complaints Card Denies dyspnea Resp Denies cough and Denies dyspnea GI Reports no additional complaints Reports no additional complaints Musc Reports no additional complaints Skin/Breast Denies rash and Denies unusual bruising Neuro Reports no additional complaints Psych Reports no additional complaints Endo Reports no additional complaints Osmin/Lymph Reports no additional complaints Aller/Immun Reports no additional complaints Physical Exam Const General: cooperative, healthy appearing and no acute distress Orientation/consciousness: patient oriented x3 HEENT Head: Yes normal to inspection, Yes normocephalic and Yes atraumatic Eyes Conjunctivae: conjunctivae normal Neck Neck: Yes normal visual inspection and Yes trachea midline Chest Chest palpation & inspection: normal inspection of the chest Resp Effort & Inspection: normal respiratory effort Cardio Rate: regular rate GI Inspection: Yes normal to inspection Skin General skin exam: no rashes or lesions noted Neuro General: patient oriented x3 Extrem Right lower extremity: edema Left lower extremity: edema Psych Appearance: grossly normal Results AMB Urinalysis, Automated UA Leukoctes 0 Grace/uL Last Edit by TOMMY Ledbetter on 03/20/23 11:22 UA Nitrite Negative Last Edit by TOMMY Ledbetter on 03/20/23 11:22 UA Urobilinogen 0.2 mg/dL Last Edit by Josue Mackay Luis on 03/20/23 11:2 2 UA Protein 0 mg/dL Last Edit by Josue Mackay A on 03/20/23 11:22 UA pH 6.0 Last Edit by Josue Mackay Luis on 03/20/23 11:22 UA Blood 10 Rudi/uL Last Edit by Josue Mackay Luis on 03/20/23 11:22 UA Specific Tarzan 1.030 Last Edit by Josue Mackay A on 03/20/23 11: 22 UA Ketone Negative Last Edit by Josue Mackay Luis on 03/20/23 11:22 UA Bilirubin 0 mg/dL Last Edit by Josue Mackay Luis on 03/20/23 11:22 UA Glucose 0 mg/dL Last Edit by Josue Mackay Luis on 03/20/23 11:22 Results Reviewed Results Reviewed: Laboratory Last Values Urine pH (Auto) 6.0 03/20/23 11:00 Specific Tarzan (Auto) 1.030 03/20/23 11:00 Urine Protein (Auto) 0 mg/dL 03/20/23 11:00 Glucose (UA)(Auto) 0 mg/dL 03/20/23 11:00 Urine Ketones (Auto) Negative 03/20/23 11:00 Urine Blood (Auto) 10 Rudi/uL 03/20/23 11:00 Urine Nitrite (Auto) Negative 03/20/23 11:00 Urine Bilirubin (Auto) 0 mg/dL 03/20/23 11:00 Urine Urobilinogen (Auto) 0.2 mg/dL 03/20/23 11:00 Leukocyte Esterase (Auto) 0 Grace/uL 03/20/23 11:00 Assessment & Plan Assessment & Plan (1) Urinary incontinence in female: Code(s): R32 - Unspecified urinary incontinence (2) Urinary frequency: Code(s): R35.0 - Frequency of micturition Plan Ordered a renal ultrasound to be obtained before the cystoscopy. Prescribed Myrbetriq 50 mg daily. Follow up in 2 months for office cystoscopy. Orders: Orders AMB Urinalysis Automated 03/20/23 Z13.9 - Encounter for screening, unspecified AMB Post Void Residual by ultrasound 03/20/23 N39.8 - Other specified disorders of urinary system Medications: New mirabegron ER (Myrbetriq) 50 mg PO DAILY 90 tabs 1RF Patient Instructions: The patient had an opportunity to ask questions regarding treatment plan. All questions were answered. Imaging, Laboratory studies and physical exam results were discussed and reviewed in detail. No major barriers to understanding were identified. The patient expressed understanding and agreement with the above treatment plan. The patient is aware they should contact our office by phone for worsening of their current condition or the appearance of new symptoms. Compliance is encouraged with any medications and followup testing that is ordered. It is a privilege to be allowed the opportunity to participate in the urologic care of your patient. If you have any questions or concerns regarding treatment for the above conditions please do not hesitate to contact me. The office telephone contact is [phone]. This note is constructed in part using voice recognition software. While every effort has been made to ensure accuracy partner marketing manager errors may have been included. Yours sincerely, Sergo Jackson MD Coding Level of Care Code New Pt Level 4 (97403) Diagnoses Urinary incontinence in female R32 Urinary frequency R35.0
== END 2023-03-20 11:23 | disposition home or self-care (01) ==
PROVIDERS: PCP Internal Medicine; Visit Provider Urology
DX: R32 Unspecified urinary incontinence (principal); R35.0 Frequency of micturition
CPT/HCPCS: 99204

== ENCOUNTER → 2023-03-20 10:53 | Outpatient (BNVA) | payer OTHER, SELFPAY | PROVIDERS: PCP Internal Medicine; Visit Provider Urology | DX: R32 Unspecified urinary incontinence (principal); R35.0 Frequency of micturition | CPT/HCPCS: 99202 ==

== ENCOUNTER 2023-03-26 08:03 | Outpatient (REF) | payer OTHER, SELFPAY ==
--- NOTE | ~2023-03-26 | MM_ITS ---
EXAMINATION: MM SCREENING DIGITAL BREAST TOMOSYNTHESIS, BILATERAL CLINICAL INFORMATION: Screening. Asymptomatic. The lifetime risk of breast cancer based on the Tyrer-Cuzick Model is 6.9%. COMPARISON: Mammography: 11/23/2020, 07/28/2019, 02/16/2019, and dating back to 2017. TECHNIQUE: Digital breast tomosynthesis is performed in both the craniocaudal and mediolateral oblique views along with computer-aided detection (CAD). Synthesized 2D images are generated from the tomosynthesis. No additional left 3-D MLO view full-field was provided. FINDINGS: There are scattered areas of fibroglandular density (ACR BI-RADS breast composition Category b). There are no suspicious masses, suspicious grouped calcifications, or areas of architectural distortion. The parenchymal pattern is stable from prior exams. There is a pacemaker device in the left axillary region. MM/MM tomosynthesis screening BI IMPRESSION: No mammographic evidence of malignancy. ASSESSMENT: BI-RADS BI-RADS 1 - Negative RECOMMENDATION: Routine annual mammography screening. 1 year F/U This examination should not preclude the clinical evaluation of a suspicious palpable abnormality. This patient's information was entered into a reminder system with a target due date for their next mammogram.
== END 2023-03-26 08:04 | disposition home or self-care (01) ==
LOC: HO.MAMMO 08:03
PROVIDERS: PCP Internal Medicine; Visit Provider Internal Medicine
DX: Z12.31 Encounter for screening mammogram for malignant neoplasm of breast (principal)
CPT/HCPCS: 77063; 77067; 99212

== ENCOUNTER → 2023-03-26 08:30 | Outpatient (BNV) | payer OTHER, SELFPAY | PROVIDERS: PCP Internal Medicine; Visit Provider Radiology Diagnostic Radiology | DX: Z12.31 Encounter for screening mammogram for malignant neoplasm of breast (principal) | CPT/HCPCS: 77063; 77067 ==

== ENCOUNTER 2023-03-26 09:23 | Outpatient (AMB) | payer OTHER, SELFPAY ==
--- NOTE | 2023-03-26 09:28 | A.OFFVIS_ITS ---
Intake Vital Signs 03/26/23 09:35 Height 5 ft 2 in Weight 238 lb BMI 43.5 BP 124/68 Blood Pressure Location Lt brachial Position Sitting Respiration 16 Pulse 70 Pulse Source Pulse Oximeter Pulse Oximetry (%) 97 Oxygen Delivery Method Room Air Intake Visit Reasons: Pill count Allergies adhesive tape Allergy (Intermediate, Verified 03/26/23 09:36) skin breakdown HPI HPI Comments History of Present Illness Details Urvashi is a very pleasant 57 year old female who presents to the office for follow up chronic pain and chronic opioid therapy management. Patient is prescribed Tramadol 50mg po bid prn. Patient arrived today with the expectation of having 87 pills, she presented 88 pills which were counted in the presence of two staff members and returned to the patient in the original prescription bottle. Most recent refill was sent when patient was taking TID therefore she picked up 90 tabs. She is now taking BID so has greater than one months supply. She does not want refill sent until next visit as she has enough for more than one month and the pharmacy reminders for refills are overwhelming. She has been working on alternative ways to manage her pain such as music and positive thinking, she wants to take as little pain medication as necessary. This demonstrates responsible attitude toward patient's opioid medications. Pain is reported today as 3/10 and last dose of pain medication was taken at 08:00 this morning. Pain is well managed on current opioid regimen. Patient denies any recent changes or exacerbations of chronic back pain and states she is able to engage in activities of daily living with minimal interruption due to chronic pain. Patient denies any side effects including constipation, abdominal pain, somnole nce, nausea, dizziness or falls. She previously had SCS trial with stimwave but did not tolerate, does not want to proceed with SCS at this time. Previously: She? went with me on transforaminal epidural spinal cord stimulator with stim wave technology.? After the procedure? she reported pain exacerbation in radicular distribution she reported numbness in left lower extremity.? During the procedure the insertion of the stimulating wires was quite difficult probably due to foraminal stenosis on those sites.? Her physical exam did not demonstrate any significant roots see below.? The CT scan which was performed to her in the emergency room did not demonstrate any hematoma or any peripheral nerve damage.? She went for EMG done by Dr. Whitfield.? Only peripheral neuropathy was found on EMG.? There were no acute radiculopathy secondary to needle penetration to the nerve roots.? The patient was treated with gabapentin and short course steroid therapy.? She reports that numbness is improving now.? She supposed to go for [facility] trial of spinal cord stimulator as we planned before...,.? [facility] Medical History Allergies Back pain Cardiac pacemaker in situ Cardiomyopathy Chronic pain syndrome Complex regional pain syndrome i of left lower limb GERD (gastroesophageal reflux disease) HTN (hypertension) Lumbar back pain with radiculopathy affecting left lower extremity Osteoarthritis of left knee Second degree AV block Spondylosis of lumbosacral spine with radiculopathy Stress incontinence Urinary incontinence in female Surgical History Gastric bypass status for obesity H/O gastric bypass History of esophagogastroduodenoscopy (EGD) History of permanent cardiac pacemaker placement Hx of breast reduction, elective Hx of cholecystectomy Hx of colonoscopy Family History Father Asthma Mother HTN (hypertension) Brother Cardiac pacemaker Sister Colon cancer Metastatic cancer Social History Housing: Apartment Alcohol intake: former Patient Tobacco Use Status: Former Tobacco user Quit Date: 7 yrs ago Cigarette Packs Per Day: 0.5 e-Cigarette/Vaping Use: Never Used service: No 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al status: unemployed and disabled 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 Cognitive needs: No Hearing needs: No Vision needs: Yes Review of Systems Const All systems reviewed & are unremarkable except as noted in HPI and below Physical Exam General: awake, alert, oriented. Answers questions appropriately. Fully engaged in examination. Skin: warm, dry, intact without visible rashes or lesions. HEENT: Normocephalic. Conjuntivae clear without exudate. Sclera non-icteric. Hearing intact. Cardiac: External chest normal in appearance. Respiratory: No signs of trauma. No signs of respiratory distress. No cough, audible wheezing or stridor. Abdomen: without gross distension. MS: No obvious swelling or deformities. Able to transition from sit to stand unassisted. Neurological: Oriented to person, place, time and situation. Thought process intact. Ambulates with steady gait utilizing walker. Psychiatric: Appropriate mood and affect. Good judgment and insight. Const Other: Assessment & Plan Assessment & Plan (1) Osteoarthritis of left hip: Code(s): M16.12 - Unilateral primary osteoarthritis, left hip (2) Spondylosis of lumbosacral spine with radiculopathy: Code(s): M47.27 - Other spondylosis with radiculopathy, lumbosacral region (3) Chronic pain syndrome: Code(s): G89.4 - Chronic pain syndrome (4) Complex regional pain syndrome i of left lower limb: Code(s): G90.522 - Complex regional pain syndrome I of left lower limb Plan Masspat was reviewed and without concerns. No obvious signs of diversion, abuse or misuse of the opioid medications. Patient picked up prescription yesterday for #90 tabs, is now taking BID and will have approx 6 week supply. No refill of medication sent today, she will follow up in 5 weeks to evaluate how BID dosing is managing her pain, medication will be refilled at that time. Stimwave trial L2-L3 L3-L4 done previously but patient reported increased numbness to lateral left thigh. Post procedure CT and EMG were completed which did not demonstrate evidence of acute pathology or radiculopathy. EMG did show evidence of peripheral neuropathy. Due to the side effects, neuropathy and interaction with her pacemaker she does not want to proceed with SCS at this time. Patient to follow-up in the office in 1 month, sooner if needed. All questions and concerns have been answered and patient agrees with the plan. Coding Level of Care Code Est Pt Level 3 (14406) Diagnoses Osteoarthritis of left hip M16.12 Spondylosis of lumbosacral spine with radiculopathy M47.27 Chronic pain syndrome G89.4 Complex regional pain syndrome i of left lower limb G90.522
[2023-03-26 09:35] VITALS: BP 124/68; PULSE 70; RESP 16; O2SAT 97; BMI 43.5
== END 2023-03-26 09:52 | disposition home or self-care (01) ==
PROVIDERS: PCP Internal Medicine; Visit Provider Registered Nurse Emergency
DX: M16.12 Unilateral primary osteoarthritis, left hip (principal); M47.27 Other spondylosis with radiculopathy, lumbosacral region; G89.4 Chronic pain syndrome; G90.522 Complex regional pain syndrome I of left lower limb
CPT/HCPCS: 99213

== ENCOUNTER 2023-04-23 09:43 | Outpatient (REF) | payer OTHER, SELFPAY ==
--- NOTE | 2023-04-23 09:45 | EMG_ITS ---
Please see scanned EMG / Nerve Conduction Report. MTDD
== END 2023-04-23 09:44 | disposition home or self-care (01) ==
LOC: HO.NEURO 09:43
PROVIDERS: PCP Internal Medicine; Visit Provider Orthopaedic Surgery
DX: R20.0 Anesthesia of skin (principal); R20.2 Paresthesia of skin
CPT/HCPCS: 95885; 95910

== ENCOUNTER 2023-04-30 09:14 | Outpatient (AMB) | payer OTHER, SELFPAY ==
[2023-04-30 09:53] VITALS: BP 140/90; PULSE 82; O2SAT 97
--- NOTE | 2023-04-30 09:53 | A.OFFVIS_ITS ---
Intake Vital Signs 04/30/23 09:53 Height 5 ft 2 in BP 140/90 H Blood Pressure Location Rt brachial Position Sitting Pulse 82 Pulse Source Pulse Oximeter Pulse Oximetry (%) 97 Oxygen Delivery Method Room Air Intake Visit Reasons: Pill count, counted and correct Intake Note: Pt here for pill count today. She presents Tramadol 50mg tabs #21/should have 0, last taken this am at 0824am. Pain level 2-3/10 on pain scale. Pt presented #32 extra Tramadol from a Rx dated from November. She stated that she wanted to have this documented in her chart that she has these extra Tramadol as she only takes them as needed. Per Dr. Ratliff, #32 Tramadol tabs were wasted by myself and Nely Vega/Kay Suarez in pharm receptacle. [facility] Required: Yes [facility] Name: Kay Suarez Allergies adhesive tape Allergy (Intermediate, Verified 04/30/23 09:56) skin breakdown Medication List - Last Reconciled 04/30/23 by Mally Red RN cetirizine 10 mg PO DAILY cholecalciferol (vitamin D3) (Vitamin D3) 2,000 units PO DAILY 90 days furosemide 10 mg (1/2 x 20 mg) PO QAM 90 days gabapentin 400 mg PO TID 30 days ipratropium bromide 2 sprays intranasal BID ketotifen fumarate 0.025%(0.035%) 0 drps ophthalmic (eye) lisinopril 2.5 mg PO DAILY metoprolol succinate ER 25 mg PO DAILY mirabegron ER (Myrbetriq) 50 mg PO DAILY qjatstbgrirz-tuw-wmvz-FA-vit K 45 mg iron- 800 mcg-120 mcg (Bariatric Multivitamins) 1 cap PO .QD salicylic acid 6% 1 appl topical BEDTIME 7 days tramadol 50 mg PO BID PRN 30 days vitamin A palmitate 20,000 units PO DAILY walker As directed HPI HPI Comments History of Present Illness Details Urvashi is a very pleasant 57 year old female who presents to the office for follow up chronic pain and chronic opioid therapy management. Last time she was in this office and she was prescribed tramadol 50 mg t.i.d.. She came today with excess of her pills. She brought to us 30 pills from November and 20 pills from last month. She supposed to have no pills today in her possession. [facility] prescribed to much of the pills for her. We agreed that from now on I will be prescribing her to pills a day. We destroyed pills from November. That left her with 21 pills for this month and. I will restart her medication in 10 days from now which will be 05/09/2023. After we will establish that she is okay with his her medication prescriptions I will continue to see her once in 2 months for the appointments and pill counts. Patient denies any side effects including constipation, abdominal pain, somnolence, nausea, dizziness or falls. She previously had SCS trial with stimwave but did not tolerate, does not want to proceed with SCS at this time. Previously: She? went with me on transforaminal epidural spinal cord stimulator with stim wave technology.? After the procedure? she reported pain exacerbation in radicular distribution she reported numbness in left lower extremity.? During the procedure the insertion of the stimulating wires was quite difficult probably due to foraminal stenosis on those sites.? Her physical exam did not demonstrate any significant roots see below.? The CT scan which was performed to her in the emergency room did not demonstrate any hematoma or any peripheral nerve damage.? She went for EMG done by Dr. Whitfield.? Only peripheral neuropathy was found on EMG.? There were no acute radiculopathy secondary to needle penetration to the nerve roots.? The patient was treated with gabapentin and short course steroid therapy.? She reports that numbness is improving now.? She supposed to go for [employer] trial of spinal cord stimulator as we planned before...,.? [facility] Medical History Allergies Back pain Cardiac pacemaker in situ Cardiomyopathy Chronic pain syndrome Complex regional pain syndrome i of left lower limb GERD (gastroesophageal reflux disease) HTN (hypertension) Lumbar back pain with radiculopathy affecting left lower extremity Osteoarthritis of left knee Second degree AV block Spondylosis of lumbosacral spine with radiculopathy Stress incontinence Urinary incontinence in female Surgical History Gastric bypass status for obesity H/O gastric bypass History of esophagogastroduodenoscopy (EGD) History of permanent cardiac pacemaker placement Hx of breast reduction, elective Hx of cholecystectomy Hx of colonoscopy Family History Father Asthma Mother HTN (hypertension) Brother Cardiac pacemaker Sister Colon cancer Metastatic cancer Social History Housing: Apartment Alcohol intake: former Patient Tobacco Use Status: Former Tobacco user Quit Date: 7 yrs ago Cigarette Packs Per Day: 0.5 e-Cigarette/Vaping Use: Never Used service: No 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al status: unemployed and disabled 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 Cognitive needs: No Hearing needs: No Vision needs: Yes Review of Systems Const All systems reviewed & are unremarkable except as noted in HPI and below Physical Exam Vital Signs: Last Vital Signs Pulse 82 04/30/23 09:53 BP 140/90 H 04/30/23 09:53 Pulse Ox 97 04/30/23 09:53 Oxygen Delivery Method Room Air 04/30/23 09:53 General: awake, alert, oriented. Answers questions appropriately. Fully engaged in examination. Skin: warm, dry, intact without visible rashes or lesions. HEENT: Normocephalic. Conjuntivae clear without exudate. Sclera non-icteric. Hearing intact. Cardiac: External chest normal in appearance. Respiratory: No signs of trauma. No signs of respiratory distress. No cough, audible wheezing or stridor. Abdomen: without gross distension. MS: No obvious swelling or deformities. Able to transition from sit to stand unassisted. Neurological: Oriented to person, place, time and situation. Thought process intact. Ambulates with steady gait utilizing walker. Psychiatric: Appropriate mood and affect. Good judgment and insight. Const Other: Assessment & Plan Assessment & Plan (1) Osteoarthritis of left hip: Code(s): M16.12 - Unilateral primary osteoarthritis, left hip (2) Spondylosis of lumbosacral spine with radiculopathy: Code(s): M47.27 - Other spondylosis with radiculopathy, lumbosacral region (3) Chronic pain syndrome: Code(s): G89.4 - Chronic pain syndrome (4) Complex regional pain syndrome i of left lower limb: Code(s): G90.522 - Complex regional pain syndrome I of left lower limb Plan Pill count issues described are as above. I will send a new prescription for her which will be due on 05/09/2023. We agreed that it will be 1 month from now I pill count. I will not make any refills for now for her pills. After that I will consider every other month's prescription and every other month pill count. Stimwave trial L2-L3 L3-L4 done previously but patient reported increased numbness to lateral left thigh. Post procedure CT and EMG were completed which did not demonstrate evidence of acute pathology or radiculopathy. EMG did show evidence of peripheral neuropathy. Due to the side effects, neuropathy and interaction with her pacemaker she does not want to proceed with SCS at this time. History of attempt of DRG stim wave trial with root irritation complication. Patient to follow-up in the office in 1 month, sooner if needed. All questions and concerns have been answered and patient agrees with the plan. Medications: Refilled tramadol 50 mg PO BID PRN 60 tabs 0RF pain 30 days Coding Level of Care Code Est Pt Level 3 (85071) Diagnoses Osteoarthritis of left hip M16.12 Spondylosis of lumbosacral spine with radiculopathy M47.27 Chronic pain syndrome G89.4 Complex regional pain syndrome i of left lower limb G90.522
== END 2023-04-30 10:24 | disposition home or self-care (01) ==
PROVIDERS: PCP Internal Medicine; Visit Provider Anesthesiology
DX: M16.12 Unilateral primary osteoarthritis, left hip (principal); M47.27 Other spondylosis with radiculopathy, lumbosacral region; G89.4 Chronic pain syndrome; G90.522 Complex regional pain syndrome I of left lower limb
CPT/HCPCS: 99213

== ENCOUNTER → 2023-04-30 09:14 | Outpatient (BNVA) | payer OTHER, SELFPAY | PROVIDERS: PCP Internal Medicine; Visit Provider Registered Nurse Emergency | DX: M16.12 Unilateral primary osteoarthritis, left hip (principal); M47.27 Other spondylosis with radiculopathy, lumbosacral region; G89.4 Chronic pain syndrome; G90.522 Complex regional pain syndrome I of left lower limb; Z79.891 Long term (current) use of opiate analgesic | CPT/HCPCS: 99212 ==

== ENCOUNTER 2023-05-09 10:03 | Outpatient (AMB) | payer OTHER, SELFPAY ==
--- NOTE | 2023-05-09 10:13 | A.OFFVIS_ITS ---
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 Pt reports forgetfulness and memory loss. She frequently forgets what she tried to do. Denies confusion or declining daily function. She can do all ADLs and taking care of finances. Pt states that her memory was not great and has been worsened over the last 4 years. She has been taking care of her mother who has Alzeheimer and disabled son for a long time. She used to sleep only 3-4 hrs a day to take care of them, still does not sleep more than 4 hrs at night, Pt has hx of migraine, bariatric surgery and pace maker placed. Pt states that her migraine has been better, not having migraine frequently as much as she had before. Pt also reports tinnitus and veering while she walks. The CPAP compliance and therapy response (04/09/23-05/08/23) reviewed. She is on APAP [id number]. The usage days 13% and the average usage hours 6 hrs. The median pressure was 8.1 and the AHI was 1.4/hr. Pt reports that her CPAP humidifier does not work and having difficulty breathing. The electromechanical assembly technician fixed it but still does not work. [facility] Medical History Allergies Back pain Cardiac pacemaker in situ Cardiomyopathy Chronic pain syndrome Complex regional pain syndrome i of left lower limb GERD (gastroesophageal reflux disease) HTN (hypertension) Lumbar back pain with radiculopathy affecting left lower extremity Osteoarthritis of left knee Second degree AV block Spondylosis of lumbosacral spine with radiculopathy Stress incontinence Urinary incontinence in female Surgical History H/O gastric bypass Gastric bypass status for obesity Hx of cholecystectomy Hx of breast reduction, elective Hx of colonoscopy History of esophagogastroduodenoscopy (EGD) History of permanent cardiac pacemaker placement Family History (Updated 05/09/23 @ 10:23 by Sanna Munroe CMA) Father Asthma Mother HTN (hypertension) Alzheimer disease Brother Cardiac pacemaker Sister Colon cancer Metastatic cancer Social History (Updated 05/09/23 @ 10:23 by Sanna Munroe [facility]) Housing: Apartment Alcohol intake: former Patient Tobacco Use Status: Former Tobacco user Quit Date: 7 yrs ago Cigarette Packs Per Day: 0.5 e-Cigarette/Vaping Use: Never Used service: No 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al status: unemployed and disabled 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 Cognitive needs: No Hearing needs: No Vision needs: Yes Review of Systems Const All systems reviewed & are unremarkable except as noted in HPI and below Physical Exam Vital Signs: Last Vital Signs Pulse 35 L 05/09/23 10:24 BP 122/62 05/09/23 10:24 Pulse Ox 97 05/09/23 10:24 Oxygen Delivery Method Room Air 05/09/23 10:24 Const General: cooperative and no acute distress Nutritional Appearance: obese Orientation/consciousness: patient oriented x3 Limitations: ambulation with cane Resp Effort & Inspection: normal respiratory effort and able to speak in complete sentences Neuro General: patient oriented x3, moves all extremities and CN's II-XI intact bilaterally Cognition (Neuro): normal cognition Psych Appearance: grossly normal Mental Status: mental status grossly normal Assessment & Plan Assessment & Plan (1) Amnesia memory loss: Code(s): R41.3 - Other amnesia (2) Memory change: Code(s): R41.3 - Other amnesia (3) Obstructive sleep apnea: Code(s): G47.33 - Obstructive sleep apnea (adult) (pediatric) Plan Advised patient to bring her CPAP to [facility] to fix the humidifier. Stressed compliance, use CPAP nightly and more than 4 hrs. Advised patient to try sleep more, 7-9 hours a day. [facility] walk in clinic hours information given to patient. Will check labs to find reversible caused for memory loss. Advised patient to undergo brain MRI. Encouraged patient to increase physical activity. Orders: Orders 2 TSH reflex Free T4 Today G47.33 - Obstructive sleep apnea (adult) (pediatric), I10 - Essential (primary) hypertension, R41.3 - Other amnesia Vitamin B12 and Folate Today G47.33 - Obstructive sleep apnea (adult) (pediatric), I10 - Essential (primary) hypertension, R41.3 - Other amnesia Comprehensive Met. Panel Today G47.33 - Obstructive sleep apnea (adult) (pediatric), I10 - Essential (primary) hypertension, R41.3 - Other amnesia Erythrocyte Sedimentation Rate Today G47.33 - Obstructive sleep apnea (adult) (pediatric), I10 - Essential (primary) hypertension, R41.3 - Other amnesia MR head/brain wo con Today R41.3 - Other amnesia Vitamin D 25-OH (D2 and D3) Today E55.9 - Vitamin D deficiency, unspecified, G47.33 - Obstructive sleep apnea (adult) (pediatric), I10 - Essential (primary) hypertension, R41.3 - Other amnesia Complete Blood Count Auto Diff Today G47.33 - Obstructive sleep apnea (adult) (pediatric), I10 - Essential (primary) hypertension, R41.3 - Other amnesia Coding Level of Care Code Est Pt Level 4 (83270) Diagnoses Amnesia memory loss R41.3 Memory change R41.3 Obstructive sleep apnea G47.33
[2023-05-09 10:24] VITALS: BP 122/62; PULSE 35; O2SAT 97
== END 2023-05-09 11:08 | disposition home or self-care (01) ==
PROVIDERS: PCP Internal Medicine; Visit Provider Nurse Practitioner Family
DX: R41.3 Other amnesia (principal); G47.33 Obstructive sleep apnea (adult) (pediatric)
CPT/HCPCS: 99214

== ENCOUNTER → 2023-05-09 10:03 | Outpatient (BNVA) | payer OTHER, SELFPAY | PROVIDERS: PCP Internal Medicine; Visit Provider Nurse Practitioner Family | DX: R41.3 Other amnesia (principal); G47.33 Obstructive sleep apnea (adult) (pediatric) | CPT/HCPCS: 99212 ==

== ENCOUNTER 2023-05-23 15:52 | Outpatient (REF) | payer OTHER, SELFPAY ==
[2023-05-23 16:11] LABS: MANUAL DIFF FLAG NO
[2023-05-23 16:18] LABS: Basophils Percent Auto 0.5 % (0-2); Eosinophils Absolute Auto 0.1 X10*3/uL (0.0-0.4); Eosinophils Percent Auto 2.1 % (0-4); Imm Gran Abs Auto 0.01 X10*3/uL (0.00-0.03); Imm Gran Pct Auto 0.2 % (0.0-0.4); Lymphocytes Absolute Auto 2.8 X10*3/uL (1.2-4.9); Lymphocytes Percent Auto 45.6 % (20-40); Mean Corpuscular HGB Conc 31.6 g/dl (31.0-35.0); Mean Corpuscular Volume 85.6 fL (80.0-98.0); Mean Platelet Volume 10.9 fL (9.4-12.3); Monocytes Absolute Auto 0.5 X10*3/uL (0.1-1.2); Monocytes Percent Auto 7.4 % (2-11); Neutrophils Absolute Auto 2.7 x10*3/uL (2.0-8.3); Neutrophils Percent Auto 44.2 % (45-73); Platelet Count 196 X10*3/uL (160-400); Red Blood Count 4.44 X10*6/uL (4.20-5.50); Red Cell Distribution Width 13.5 % (11.0-16.0); White Blood Count 6.2 X10*3/uL (4.8-10.8)
[2023-05-23 17:08] LABS: Erythrocyte Sedimentation Rate 18 MM/HR (0-20)
[2023-05-23 17:16] LABS: Alanine Aminotransferase 14 U/L (0-31); Albumin Level 4.2 g/dL (3.5-5.0); Alkaline Phosphatase 73 U/L (39-117); Anion Gap 13 (12-20); Aspartate Amino Transferase 15 U/L (5-31); Bilirubin Total 0.3 mg/dL (0.0-1.0); Blood Urea Nitrogen 18 mg/dL (9-16); Calcium 10.3 mg/dL (8.4-10.2); Carbon Dioxide 24 mmol/L (22-29); Chloride 107 mmol/L (96-108); Estimated Glomerular Filt Rate > 60; Glucose Random 90 mg/dL (60-115); Potassium 3.8 mmol/L (3.3-5.1); Sodium 140 mmol/L (135-145); Total Protein 7.6 g/dL (6.5-8.0)
[2023-05-23 17:31] LABS: TSH reflex Free T4 1.63 uIU/mL (0.32-4.0)
[2023-05-23 18:02] LABS: Folate 14.9 ng/mL (> or = 4.0); Vitamin B12 530 pg/mL (200-900)
[2023-05-27 16:17] LABS: Vitamin D 25-OH, D2 <4 ng/mL; Vitamin D 25-OH, D3 29 ng/mL; Vitamin D 25-OH, Total 29 ng/mL (30-100)
== END 2023-05-23 15:53 | disposition home or self-care (01) ==
LOC: HO.LAB 15:52
PROVIDERS: PCP Internal Medicine; Visit Provider Nurse Practitioner Family
DX: G47.33 Obstructive sleep apnea (adult) (pediatric) (principal); R41.3 Other amnesia; I10 Essential (primary) hypertension; E55.9 Vitamin D deficiency, unspecified
CPT/HCPCS: 36415; 80053; 82306; 82607; 82746; 84443; 85025; 85652

== ENCOUNTER 2023-05-28 09:49 | Outpatient (AMB) | payer OTHER, SELFPAY ==
--- NOTE | 2023-05-28 09:58 | A.OFFVIS_ITS ---
Intake Vital Signs 05/28/23 09:59 Height 5 ft 2 in Weight 238 lb BMI 43.5 BP 162/71 H Blood Pressure Location Rt brachial Position Sitting Respiration 18 Pulse 73 Pulse Source Pulse Oximeter Pulse Oximetry (%) 98 Oxygen Delivery Method Room Air Intake Visit Reasons: PILL COUNT Allergies adhesive tape Allergy (Intermediate, Verified 05/28/23 10:00) skin breakdown HPI HPI Comments History of Present Illness Details Urvashi presents to the office today for follow up chronic pain and chronic opioid therapy management. Patient is prescribed Tramadol 50mg po BID as needed. Patient arrived today with the expectation of having 4 pills, she presented 21 pills which were counted in the presence of two staff members and returned to the patient in the original prescription bottle. This demonstrates responsible attitude toward patient's opioid medications. Pain is reported today as 2/10 and last dose of pain medication was taken at 09:00 this morning. Pain is well managed on current opioid regimen. Patient denies any recent changes or exacerbations of chronic back pain and states she is able to engage in activities of daily living with minimal interruption due to chronic pain. Patient denies side effects including somnolence, constipation, itching, dyspnea, rash, dizziness or weakness. Prior: Urvashi is a very pleasant 57 year old female who presents to the office for follow up chronic pain and chronic opioid therapy management. Last time she was in this office and she was prescribed tramadol 50 mg t.i.d.. She came today with excess of her pills. She brought to us 30 pills from November a and 20 pills from last month. She supposed to have no pills today in her possession. [facility] prescribed to much of the pills for her. We agreed that from now on I will be prescribing her to pills a day. We destroyed pills from November. That left her with 21 pills for this month and. I will restart her medication in 10 days from now which will be 05/09/2023. After we will establish that she is okay with his her medication prescriptions I will continue to see her once in 2 months for the appointments and pill counts. Patient denies any side effects including constipation, abdominal pain, somnolence, nausea, dizziness or falls. She previously had SCS trial with stimwave but did not tolerate, does not want to proceed with SCS at this time. Previously: She? went with me on transforaminal epidural spinal cord stimulator with stim wave technology.? After the procedure? she reported pain exacerbation in radicular distribution she reported numbness in left lower extremity.? During the procedure the insertion of the stimulating wires was quite difficult probably due to foraminal stenosis on those sites.? Her physical exam did not demonstrate any significant roots see below.? The CT scan which was performed to her in the emergency room did not demonstrate any hematoma or any peripheral nerve damage.? She went for EMG done by Dr. Whitfield.? Only peripheral neuropathy was found on EMG.? There were no acute radiculopathy secondary to needle penetration to the nerve roots.? The patient was treated with gabapentin and short course steroid therapy.? She reports that numbness is improving now.? She supposed to go for [employer] trial of spinal cord stimulator as we planned before...,.? [facility] Medical History Allergies Back pain Cardiac pacemaker in situ Cardiomyopathy Chronic pain syndrome Complex regional pain syndrome i of left lower limb GERD (gastroesophageal reflux disease) HTN (hypertension) Lumbar back pain with radiculopathy affecting left lower extremity Osteoarthritis of left knee Second degree AV block Spondylosis of lumbosacral spine with radiculopathy Stress incontinence Urinary incontinence in female Surgical History H/O gastric bypass Gastric bypass status for obesity Hx of cholecystectomy Hx of breast reduction, elective Hx of colonoscopy History of esophagogastroduodenoscopy (EGD) History of permanent cardiac pacemaker placement Family History (Updated 05/09/23 @ 10:23 by Sanna Munroe CMA) Father Asthma Mother HTN (hypertension) Alzheimer disease Brother Cardiac pacemaker Sister Colon cancer Metastatic cancer Social History (Updated 05/09/23 @ 10:23 by Sanna Munroe CMA) Housing: Apartment Alcohol intake: former Patient Tobacco Use Status: Former Tobacco user Quit Date: 7 yrs ago Cigarette Packs Per Day: 0.5 e-Cigarette/Vaping Use: Never Used service: No 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al status: unemployed and disabled 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 Cognitive needs: No Hearing needs: No Vision needs: Yes Review of Systems Const All systems reviewed & are unremarkable except as noted in HPI and below Physical Exam Vital Signs: Last Vital Signs Pulse 73 05/28/23 09:59 Resp 18 05/28/23 09:59 BP 162/71 H 05/28/23 09:59 Pulse Ox 98 05/28/23 09:59 Oxygen Delivery Method Room Air 05/28/23 09:59 BMI result Body Mass Index 43.5 General: awake, alert, oriented. Answers questions appropriately. Fully engaged in examination. Skin: warm, dry, intact without visible rashes or lesions. HEENT: Normocephalic. Conjuntivae clear without exudate. Sclera non-icteric. Hearing intact. Cardiac: External chest normal in appearance. Respiratory: No signs of trauma. No signs of respiratory distress. No cough, audible wheezing or stridor. Abdomen: without gross distension. MS: No obvious swelling or deformities. Able to transition from sit to stand unassisted. Neurological: Oriented to person, place, time and situation. Thought process intact. Ambulates with steady gait utilizing cane for assistance. Psychiatric: Appropriate mood and affect. Good judgment and insight. Const Other: Assessment & Plan Assessment & Plan (1) Osteoarthritis of left hip: Code(s): M16.12 - Unilateral primary osteoarthritis, left hip (2) Spondylosis of lumbosacral spine with radiculopathy: Code(s): M47.27 - Other spondylosis with radiculopathy, lumbosacral region (3) Chronic pain syndrome: Code(s): G89.4 - Chronic pain syndrome (4) Complex regional pain syndrome i of left lower limb: Code(s): G90.522 - Complex regional pain syndrome I of left lower limb Plan [employer] was reviewed and without concerns. No obvious signs of diversion, abuse or misuse of the opioid medications. Refill sent today for Tramadol 50mg po BID prn with advance date of 05/31/23. Stimwave trial L2-L3 L3-L4 done previously but patient reported increased numbness to lateral left thigh. Post procedure CT and EMG were completed which did not demonstrate evidence of acute pathology or radiculopathy. EMG did show evidence of peripheral neuropathy. Due to the side effects, neuropathy and interaction with her pacemaker she does not want to proceed with SCS at this time. Patient to follow-up in the office in 1 month, sooner if needed. All questions and concerns have been answered and patient agrees with the plan. Medications: Refilled tramadol 50 mg PO BID 30 days PRN 60 tabs 0RF pain Coding Level of Care Code Est Pt Level 3 (00638) Diagnoses Osteoarthritis of left hip M16.12 Spondylosis of lumbosacral spine with radiculopathy M47.27 Chronic pain syndrome G89.4 Complex regional pain syndrome i of left lower limb G90.522
[2023-05-28 09:59] VITALS: BP 162/71; PULSE 73; RESP 18; O2SAT 98; BMI 43.5
== END 2023-05-28 10:07 | disposition home or self-care (01) ==
PROVIDERS: PCP Internal Medicine; Visit Provider Registered Nurse Emergency
DX: M16.12 Unilateral primary osteoarthritis, left hip (principal); M47.27 Other spondylosis with radiculopathy, lumbosacral region; G89.4 Chronic pain syndrome; G90.522 Complex regional pain syndrome I of left lower limb
CPT/HCPCS: 99213

== ENCOUNTER → 2023-05-28 09:49 | Outpatient (BNVA) | payer OTHER, SELFPAY | PROVIDERS: PCP Internal Medicine; Visit Provider Registered Nurse Emergency | DX: Z51.81 Encounter for therapeutic drug level monitoring (principal); M16.12 Unilateral primary osteoarthritis, left hip; M47.27 Other spondylosis with radiculopathy, lumbosacral region; G90.522 Complex regional pain syndrome I of left lower limb; G89.4 Chronic pain syndrome | CPT/HCPCS: 99212 ==

== ENCOUNTER 2023-06-12 09:47 | Outpatient (REF) | payer OTHER, SELFPAY ==
--- NOTE | ~2023-06-12 | US_ITS ---
EXAMINATION: US RETROPERITONEAL COMPLETE (RENAL) CLINICAL INFORMATION: Frequency of micturition. COMPARISON: Ultrasound abdomen complete 09/12/2016. TECHNIQUE: Real-time imaging of the kidneys and bladder. FINDINGS: RIGHT KIDNEY: 10.4 x 4.6 x 4.5 cm (SAG x AP x TRV). The kidney is normal in size, contour, and echogenicity. Renal cortical thickness is normal. No calculi or focal parenchymal lesions. No hydronephrosis. Right-sided pelvic fullness. LEFT KIDNEY: 10.5 x 6.8 x 5.9 cm (SAG x AP x TRV). The kidney is normal in size, contour, and echogenicity. Renal cortical thickness is normal. No calculi or focal parenchymal lesions. No hydronephrosis. BLADDER: Well distended and normal. Bilateral ureteral jets are demonstrated. Prevoid bladder volume is 437 mL. Postvoid bladder volume is 22.2 mL. US/US retroperitoneal comp IMPRESSION: 1. Right-sided pelvic fullness without nephrolithiasis. 2. Postvoid bladder volume of 22.2 mL with visualization of the bilateral ureteral jets.
== END 2023-06-12 09:48 | disposition home or self-care (01) ==
LOC: HO.US 09:47
PROVIDERS: PCP Internal Medicine; Visit Provider Urology
DX: R35.0 Frequency of micturition (principal); R32 Unspecified urinary incontinence
CPT/HCPCS: 76770

== ENCOUNTER 2023-06-23 13:23 | Outpatient (AMB) | payer OTHER, SELFPAY ==
--- NOTE | 2023-06-23 13:35 | A.OFFVIS_ITS ---
Intake Intake Visit Reasons: 2m/cysto/US Intake Note: Patient presents today for a CYSTOSCOPY Procedure: US Booked on 06/12/2023 Meds: Mirabegron Allergies to Antibiotic: No Known Allergies Blood Thinner: None Urinalysis test cleared for Cysto Disposable Uro-G Cystoscope Cannula: Lot: [id number] Exp: 01/12/2025 Supervisor Wool Shearing Required: Yes Supervisor Wool Shearing Language: Stave And Bolt Equalizer Name: TOMMY Ledbetter Information Interpreted: non-clinical & clinical Accompanied by: Self / Same As Patient Allergies adhesive tape Allergy (Intermediate, Verified 06/25/23 09:59) skin breakdown Medication List - Last Reconciled 06/23/23 by Sergo Jackson MD cetirizine 10 mg PO DAILY cholecalciferol (vitamin D3) (Vitamin D3) 2,000 units PO DAILY 90 days estradiol (Vagifem) 10 mcg vaginal 2XW furosemide 10 mg (1/2 x 20 mg) PO QAM gabapentin 400 mg PO TID 30 days ipratropium bromide 2 sprays intranasal BID ketotifen fumarate 0.025%(0.035%) 0 drps ophthalmic (eye) lisinopril 2.5 mg PO DAILY metoprolol succinate ER 25 mg PO DAILY mirabegron ER (Myrbetriq) 50 mg PO DAILY znlyjgcycxwn-kti-vdji-FA-vit K 45 mg iron- 800 mcg-120 mcg (Bariatric Multivitamins) 1 cap PO .QD salicylic acid 6% 1 appl topical BEDTIME 7 days vitamin A 2 caps PO DAILY walker As directed HPI HPI Comments History of Present Illness Details Urvashi is a 57-year-old female who presents today to the office for a follow-up. 06/23/23? She is followed today for a cystoscopy procedure. The patient is a Setswana- speaking female. A certified thread machine operator was present during the visit. She has comorbidities, obesity, sleep apnea. She denies history of a hysterectomy. She has had 3 pregnancies, 2 vaginal deliveries, 1 miscarriage.? She was last seen by me on 03/20/23 for urinary frequency. The patient was prescribed Myrbetriq 50 mg daily for OAB symptoms. Ordered a renal ultrasound to be obtained before the Cystoscopy during that time. ? I reviewed the retroperitoneum US results from 06/12/23 revealed right-sided pelvic fullness without nephrolithiasis.? Postvoid bladder volume of 22.2 mL with visualization of the bilateral ureteral jets. Cystoscopy procedure: consent was obtained for Cystoscopy procedure. Cystoscopy findings: mild bladder wall thickening. bladder Filled with 200 mL sterilel water. After removing the cystoscope, Pelvic examination--performed, there was no leakage with valsalva, and minimal leakage with cough in supine position, no significant vaginal prolapse. vaginal atrophy 06/23/23: Plan: Continue Myrbetriq 50 mg daily. Ordered vagifem 10 mEq twice a week. Patient instructed on kegel exercises and to do 10 - 20 repetitions twice a day. Follow-up in 4 months. [facility] Medical History Allergies Back pain Cardiac pacemaker in situ Cardiomyopathy Chronic pain syndrome Complex regional pain syndrome i of left lower limb GERD (gastroesophageal reflux disease) HTN (hypertension) Lumbar back pain with radiculopathy affecting left lower extremity Osteoarthritis of left knee Second degree AV block Spondylosis of lumbosacral spine with radiculopathy Stress incontinence Urinary incontinence in female Surgical History H/O gastric bypass Gastric bypass status for obesity Hx of cholecystectomy Hx of breast reduction, elective Hx of colonoscopy History of esophagogastroduodenoscopy (EGD) History of permanent cardiac pacemaker placement Family History (Updated 05/09/23 @ 10:23 by Sanna Munroe CMA) Father Asthma Mother HTN (hypertension) Alzheimer disease Brother Cardiac pacemaker Sister Colon cancer Metastatic cancer Social History (Updated 05/09/23 @ 10:23 by Sanna Munroe CMA) Housing: Apartment Alcohol intake: former Patient Tobacco Use Status: Former Tobacco user Quit Date: 7 yrs ago Cigarette Packs Per Day: 0.5 e-Cigarette/Vaping Use: Never Used service: No 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al status: unemployed and disabled 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 Cognitive needs: No Hearing needs: No Vision needs: Yes Review of Systems Const All systems reviewed & are unremarkable except as noted in HPI and below Reports no additional complaints Eyes Reports no additional complaints ENT Reports no additional complaints Card Denies dyspnea Resp Denies cough and Denies dyspnea GI Reports no additional complaints Reports no additional complaints Musc Reports no additional complaints Skin/Breast Denies rash and Denies unusual bruising Neuro Reports no additional complaints Psych Reports no additional complaints Endo Reports no additional complaints Osmin/Lymph Reports no additional complaints Aller/Immun Reports no additional complaints Office Procedures Cystoscopy Consent Discussed risk and benefit or proposed procedure with the patient. Information consent for procedure given to the patient. Discussed technical aspects, risks, benefits and alternatives in full. Addressed all of the patient's questions and concerns regarding the procedure. The patient demonstrated knowledge and understanding. They wish to proceed with this procedure. Preparation The patient was prepped in the usual manner. A executive office manager was present and in the room. Genitalia was prepped with betadine solution in a sterile manner. Lidocaine Jelly 2% was placed into the urethra and 16Fr flexible Olympus c ystoscope was inserted into the meatus after adequate lubrication. Time out per protocol performed. Bladder Inspection Bladder Inspection: The bladder was inspected in its entirety with utilization retroflexion displaying: Tumor(s): none visualized Trabeculation: mild/mod Mucosal Erthema: N/A Orifices: normal shape and position Urethra: normal Cystoscopy findings: no suspicious bladder lesions visualized [id number] DISPOSABLE SCOPE URO-G FLEXIBLE SCOPE Procedure code (CPT) selection complete Office Meds lidocaine HCl 2 % mucosal jelly in applicator Performing Provider: Sergo Jackson MD Performing Location: [facility] Administered by: Hardy Acevedo LPN on 06/23/23 13:35 Dose Route Admin Location Dispensed Lot Number Expiration Date [facility] Signal Tester 10 mL intra-urethral 20 mL naproxen 500 mg tablet Performing Provider: Sergo Jackson MD Performing Location: [facility] Administered by: Hardy Acevedo LPN on 06/23/23 13:35 Dose Route Admin Location Dispensed Lot Number Expiration Date [facility] Signal Tester 500 mg PO 1 tab ciprofloxacin HCl 500 mg tablet Performing Provider: Sergo Jackson MD Performing Location: [facility] Administered by: Hardy Acevedo LPN on 06/23/23 13:35 Dose Route Admin Location Dispensed Lot Number Expiration Date [facility] Signal Tester 500 mg PO 1 tab Results AMB Urinalysis, Automated UA Leukoctes 0 Grace/uL Last Edit by TOMMY Ledbetter on 06/23/23 13:42 UA Nitrite Negative Last Edit by Josue Mackay Luis on 06/23/23 13:42 UA Urobilinogen 0.2 mg/dL Last Edit by Josue Mackay A on 06/23/23 13:4 2 UA Protein 0 mg/dL Last Edit by Josue Mackay [facility] on 06/23/23 13:42 UA pH 6.0 Last Edit by Josue Mackay [facility] on 06/23/23 13:42 UA Blood 10 Rudi/uL Last Edit by Josue Mackay Luis on 06/23/23 13:42 UA Specific Grove 1.015 Last Edit by Josue Mackay [facility] on 06/23/23 13: 42 UA Ketone Negative Last Edit by Josue Mackay [facility] on 06/23/23 13:42 UA Bilirubin 0 mg/dL Last Edit by Josue Mackay [facility] on 06/23/23 13:42 UA Glucose 0 mg/dL Last Edit by Josue Mackay [facility] on 06/23/23 13:42 Results Reviewed Results Reviewed: Laboratory Last Values Urine pH (Auto) 6.0 06/23/23 13:41 Specific Grove (Auto) 1.015 06/23/23 13:41 Urine Protein (Auto) 0 mg/dL 06/23/23 13:41 Glucose (UA)(Auto) 0 mg/dL 06/23/23 13:41 Urine Ketones (Auto) Negative 06/23/23 13:41 Urine Blood (Auto) 10 Rudi/uL 06/23/23 13:41 Urine Nitrite (Auto) Negative 06/23/23 13:41 Urine Bilirubin (Auto) 0 mg/dL 06/23/23 13:41 Urine Urobilinogen (Auto) 0.2 mg/dL 06/23/23 13:41 Leukocyte Esterase (Auto) 0 Grace/uL 06/23/23 13:41 Date of Service: 06/12/23 EXAMINATION:? US RETROPERITONEAL COMPLETE (RENAL) CLINICAL INFORMATION: Frequency of micturition. COMPARISON:? Ultrasound abdomen complete 09/12/2016. FINDINGS:? RIGHT KIDNEY: 10.4 x 4.6 x 4.5 cm (SAG x AP x TRV). The kidney is normal in size, contour, and echogenicity. Renal cortical thickness is normal. No calculi or focal parenchymal lesions. No hydronephrosis. Right-sided pelvic fullness. LEFT KIDNEY: 10.5 x 6.8 x 5.9 cm (SAG x AP x TRV). The kidney is normal in size, contour, and echogenicity. Renal cortical thickness is normal. No calculi or focal parenchymal lesions. No hydronephrosis. BLADDER: Well distended and normal. Bilateral ureteral jets are demonstrated. Prevoid bladder volume is 437 mL. Postvoid bladder volume is 22.2 mL. IMPRESSION:? 1.? Right-sided pelvic fullness without nephrolithiasis. 2.? Postvoid bladder volume of 22.2 mL with visualization of the bilateral ureteral jets. Assessment & Plan Assessment & Plan (1) Urinary incontinence in female: Code(s): R32 - Unspecified urinary incontinence (2) Urinary frequency: Code(s): R35.0 - Frequency of micturition (3) Pelvic floor weakness: Code(s): N81.89 - Other female genital prolapse (4) Post-menopausal atrophic vaginitis: Code(s): N95.2 - Postmenopausal atrophic vaginitis (5) OAB (overactive bladder): Code(s): N32.81 - Overactive bladder Plan Continue Myrbetriq 50 mg daily. Ordered vagifem 10 mEq twice a week. Patient instructed on kegel exercises and to do 10 - 20 repetitions twice a day. Follow-up in 4 months. Orders: Orders AMB Cystoscopy 06/23/23 R32 - Unspecified urinary incontinence AMB Urinalysis Automated 06/23/23 Z13.9 - Encounter for screening, unspecified Medications: New estradiol (Vagifem) Use 2 times a week - apply at bedtime, Mon/Thurs 10 mcg vaginal 2XW 8 tabs 5RF Refilled mirabegron ER (Myrbetriq) 50 mg PO DAILY 90 tabs 1RF Patient Instructions: The patient had an opportunity to ask questions regarding treatment plan. All questions were answered. Imaging, Laboratory studies and physical exam results were discussed and reviewed in detail. No major barriers to understanding were identified. The patient expressed understanding and agreement with the above treatment plan.? ? ? The patient is aware they should contact our office by phone for worsening of their current condition or the appearance of new symptoms. Compliance is encouraged with any medications and followup testing that is ordered.? ? ? It is a privilege to be allowed the opportunity to participate in the urologic care of your patient. If you have any questions or concerns regarding treatment for the above conditions please do not hesitate to contact me. The office telephone contact is [phone].? ? ? This note is constructed in part using voice recognition software. While every effort has been made to ensure accuracy external grinder tender errors may have been in cluded.? ? ? Yours sincerely,? ? ? Sergo Jackson MD? ? Coding Level of Care Code Est Pt Level 3 (04488) Diagnoses Urinary incontinence in female R32 Urinary frequency R35.0 Pelvic floor weakness N81.89 Post-menopausal atrophic vaginitis N95.2 OAB (overactive bladder) N32.81 CPT Codes Cystoscopy - CPT: 32925-[id number] ([id number])
== END 2023-06-23 14:46 | disposition home or self-care (01) ==
PROVIDERS: PCP Internal Medicine; Visit Provider Urology
DX: R35.0 Frequency of micturition (principal); R32 Unspecified urinary incontinence; N81.89 Other female genital prolapse; N95.2 Postmenopausal atrophic vaginitis; N32.81 Overactive bladder
CPT/HCPCS: 52000; 99213

== ENCOUNTER → 2023-06-23 13:23 | Outpatient (BNVA) | payer OTHER, SELFPAY | PROVIDERS: PCP Internal Medicine; Visit Provider Urology | DX: R32 Unspecified urinary incontinence (principal); R35.0 Frequency of micturition; N81.89 Other female genital prolapse; N95.2 Postmenopausal atrophic vaginitis; N32.81 Overactive bladder | CPT/HCPCS: 52000; 81003; 99212 ==

== ENCOUNTER 2023-06-25 09:46 | Outpatient (AMB) | payer OTHER, SELFPAY ==
[2023-06-25 09:58] VITALS: BP 134/63; PULSE 70; RESP 16; O2SAT 95; BMI 43.5
--- NOTE | 2023-06-25 09:58 | A.OFFVIS_ITS ---
Intake Vital Signs 06/25/23 09:58 Height 5 ft 2 in Weight 238 lb BMI 43.5 BP 134/63 Blood Pressure Location Lt radial Position Sitting Respiration 16 Pulse 70 Pulse Source Pulse Oximeter Pulse Oximetry (%) 95 Oxygen Delivery Method Room Air Intake Visit Reasons: Medication Count Allergies adhesive tape Allergy (Intermediate, Verified 06/25/23 09:59) skin breakdown HPI HPI Comments History of Present Illness Details Urvashi presents to the office today for follow up chronic pain and chronic opioid therapy management. Patient is prescribed Tramadol 50mg po BID as needed. Patient arrived today with the expectation of having 20 pills, she presented 23 pills which were counted in the presence of two staff members and returned to the patient in the original prescription bottle. This demonstrates responsible attitude toward patient's opioid medications. Pain is reported today as 4/10 and last dose of pain medication was taken at 08:49 this morning. Pain is adequately managed on current opioid regimen. Patient denies any recent changes or exacerbations of chronic pain and states she is able to engage in activities of daily living with little interruption due to chronic pain. She does report that she has to take frequent breaks in order to complete many of her household tasks but with these breaks she is able to get chores done without significant pain increase. Patient denies side effects including somnolence, constipation, itching, dyspnea, rash, dizziness or weakness. Prior visit with Dr Ratliff: Urvashi is a very pleasant 57 year old female who presents to the office for follow up chronic pain and chronic opioid therapy management. Last time she was in this office and she was prescribed tramadol 50 mg t.i.d.. She came today with excess of her pills. She brought to us 30 pills from November a and 20 pills from last month. She supposed to have no pills today in her possession. [facility] liver prescribed to much of the pills for her. We agreed that from now on I w ill be prescribing her to pills a day. We destroyed pills from November. That left her with 21 pills for this month and. I will restart her medication in 10 days from now which will be 05/09/2023. After we will establish that she is okay with his her medication prescriptions I will continue to see her once in 2 months for the appointments and pill counts. Patient denies any side effects including constipation, abdominal pain, somnolence, nausea, dizziness or falls. She previously had SCS trial with stimwave but did not tolerate, does not want to proceed with SCS at this time. Previously: She? went with me on transforaminal epidural spinal cord stimulator with stim wave technology.? After the procedure? she reported pain exacerbation in radicular distribution she reported numbness in left lower extremity.? During the procedure the insertion of the stimulating wires was quite difficult probably due to foraminal stenosis on those sites.? Her physical exam did not demonstrate any significant roots see below.? The CT scan which was performed to her in the emergency room did not demonstrate any hematoma or any peripheral nerve damage.? She went for EMG done by Dr. Whitfield.? Only peripheral neuropathy was found on EMG.? There were no acute radiculopathy secondary to needle penetration to the nerve roots.? The patient was treated with gabapentin and short course steroid therapy.? She reports that numbness is improving now.? She supposed to go for [employer] trial of spinal cord stimulator as we planned before...,.? [facility] History Allergies Back pain Cardiac pacemaker in situ Cardiomyopathy Chronic pain syndrome Complex regional pain syndrome i of left lower limb GERD (gastroesophageal reflux disease) HTN (hypertension) Lumbar back pain with radiculopathy affecting left lower extremity Osteoarthritis of left knee Second degree AV block Spondylosis of lumbosacral spine with radiculopathy Stress incontinence Urinary incontinence in female Surgical History H/O gastric bypass Gastric bypass status for obesity Hx of cholecystectomy Hx of breast reduction, elective Hx of colonoscopy History of esophagogastroduodenoscopy (EGD) History of permanent cardiac pacemaker placement Family History (Updated 05/09/23 @ 10:23 by Sanna Munroe CMA) Father Asthma Mother HTN (hypertension) Alzheimer disease Brother Cardiac pacemaker Sister Colon cancer Metastatic cancer Social History (Updated 05/09/23 @ 10:23 by Sanna Munroe CMA) Housing: Apartment Alcohol intake: former Patient Tobacco Use Status: Former Tobacco user Quit Date: 7 yrs ago Cigarette Packs Per Day: 0.5 e-Cigarette/Vaping Use: Never Used service: No 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al status: unemployed and disabled 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 Cognitive needs: No Hearing needs: No Vision needs: Yes Review of Systems Const All systems reviewed & are unremarkable except as noted in HPI and below Physical Exam Vital Signs: Last Vital Signs Pulse 70 06/25/23 09:58 Resp 16 06/25/23 09:58 BP 134/63 06/25/23 09:58 Pulse Ox 95 06/25/23 09:58 Oxygen Delivery Method Room Air 06/25/23 09:58 BMI result Body Mass Index 43.5 General: awake, alert, oriented. Answers questions appropriately. Fully engaged in examination. Skin: warm, dry, intact without visible rashes or lesions. HEENT: Normocephalic. Hearing intact. Cardiac: External chest normal in appearance. Respiratory: No cough, audible wheezing or stridor. Abdomen: without gross distension. MS: No obvious swelling or deformities. Able to transition from sit to stand unassisted. Neurological: Oriented to person, place, time and situation. Thought process intact. Ambulates with steady gait utilizing cane for assistance. Psychiatric: Appropriate mood and affect. Good judgment and insight. Const Other: Assessment & Plan Assessment & Plan (1) Osteoarthritis of left hip: Code(s): M16.12 - Unilateral primary osteoarthritis, left hip (2) Spondylosis of lumbosacral spine with radiculopathy: Code(s): M47.27 - Other spondylosis with radiculopathy, lumbosacral region (3) Chronic pain syndrome: Code(s): G89.4 - Chronic pain syndrome (4) Complex regional pain syndrome i of left lower limb: Code(s): G90.522 - Complex regional pain syndrome I of left lower limb Plan Masspat was reviewed and without concerns. No obvious signs of diversion, abuse or misuse of the opioid medications. Refill sent today for Tramadol 50mg po BID prn with advance date of 07/05/2023. Stimwave trial L2-L3 L3-L4 done previously but patient reported increased numbness to lateral left thigh. Post procedure CT and EMG were completed which did not demonstrate evidence of acute pathology or radiculopathy. EMG did show evidence of peripheral neuropathy. Due to the side effects, neuropathy and interaction with her pacemaker she does not want to proceed with SCS at this time. Patient to follow-up in the office in 1 month, sooner if needed. All questions and concerns have been answered and patient agrees with the plan. Medications: New tramadol 50 mg PO BID PRN 60 tabs 0RF pain Coding Level of Care Code Est Pt Level 3 (94985) Diagnoses Osteoarthritis of left hip M16.12 Spondylosis of lumbosacral spine with radiculopathy M47.27 Chronic pain syndrome G89.4 Complex regional pain syndrome i of left lower limb G90.522
== END 2023-06-25 10:06 | disposition home or self-care (01) ==
PROVIDERS: PCP Internal Medicine; Visit Provider Registered Nurse Emergency
DX: G89.4 Chronic pain syndrome (principal); G90.522 Complex regional pain syndrome I of left lower limb; M16.12 Unilateral primary osteoarthritis, left hip; Z79.891 Long term (current) use of opiate analgesic; M47.27 Other spondylosis with radiculopathy, lumbosacral region
CPT/HCPCS: 99213

== ENCOUNTER → 2023-06-25 09:46 | Outpatient (BNVA) | payer OTHER, SELFPAY | PROVIDERS: PCP Internal Medicine; Visit Provider Registered Nurse Emergency | DX: Z51.81 Encounter for therapeutic drug level monitoring (principal); F11.20 Opioid dependence, uncomplicated; M16.12 Unilateral primary osteoarthritis, left hip; M47.27 Other spondylosis with radiculopathy, lumbosacral region; G90.522 Complex regional pain syndrome I of left lower limb; G89.4 Chronic pain syndrome | CPT/HCPCS: 99212 ==

== ENCOUNTER 2023-07-16 09:14 | Outpatient (AMB) | payer OTHER, SELFPAY ==
--- NOTE | 2023-07-16 09:22 | A.OFFVIS_ITS ---
Intake Vital Signs 07/16/23 09:28 Weight 241 lb 8 oz BP 130/86 Blood Pressure Location Lt brachial Position Sitting Pulse Oximetry (%) 97 Oxygen Delivery Method Room Air Intake Visit Reasons: 2 mo f/u for Amnesia-Confirmed Intake Note: F/U Amnesia, patient states still the same Agricultural Research Technologist Required: No Allergies adhesive tape Allergy (Intermediate, Verified 07/16/23 09:23) skin breakdown HPI HPI Comments History of Present Illness Details 57 y/o female patient presents for follo w up of of MARVEL and memory loss. Pt reports that she visit [facility] and fixed the CPAP humidifier. She feels better using the CPAP. The CPAP compliance and therapy response (06/16/23-07/15/23) reviewed. She is on APAP [id number]. The usage days 67% and the average usage hours 5 hrs 30 min. The median pressure was 7.3 and the AHI was 1.3/hr. Pt having difficulty falling asleep. She tried melatonin 1.5 mg but it caused palpitation. Pt reports forgetfulness and memory loss. She frequently forgets what she tried to do. Denies confusion or declining daily function. She can do all ADLs and taking care of finances. Pt states that her memory was not great and has been worsened over the last 4 years. The lab result reviewed, has low vitamin D level. Pt has hx of migraine, bariatric surgery and pace maker placed. Pt states that her migraine has been better, not having migraine frequently as much as she had before. [facility] Medical History Allergies Back pain Cardiac pacemaker in situ Cardiomyopathy Chronic pain syndrome Complex regional pain syndrome i of left lower limb GERD (gastroesophageal reflux disease) HTN (hypertension) Lumbar back pain with radiculopathy affecting left lower extremity Osteoarthritis of left knee Second degree AV block Spondylosis of lumbosacral spine with radiculopathy Stress incontinence Urinary incontinence in female Surgical History H/O gastric bypass Gastric bypass status for obesity Hx of cholecystectomy Hx of breast reduction, elective Hx of colonoscopy History of esophagogastroduodenoscopy (EGD) History of permanent cardiac pacemaker placement Family History (Updated 05/09/23 @ 10:23 by Sanna Munroe CMA) Father Asthma Mother HTN (hypertension) Alzheimer disease Brother Cardiac pacemaker Sister Colon cancer Metastatic cancer Social History (Updated 07/16/23 @ 09:28 by Sanna Munroe [facility]) Housing: Apartment Alcohol intake: former Patient Tobacco Use Status: Former Tobacco user Quit Date: 7 yrs ago Cigarette Packs Per Day: 0.5 e-Cigarette/Vaping Use: Never Used service: No 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al status: unemployed and disabled 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 Cognitive needs: No Hearing needs: No Vision needs: Yes Review of Systems Const All systems reviewed & are unremarkable except as noted in HPI and below Physical Exam Vital Signs: Last Vital Signs BP 130/86 07/16/23 09:28 Pulse Ox 97 07/16/23 09:28 Oxygen Delivery Method Room Air 07/16/23 09:28 Const General: cooperative and no acute distress Nutritional Appearance: obese Orientation/consciousness: patient oriented x3 Limitations: ambulation with cane Resp Effort & Inspection: normal respiratory effort and able to speak in complete sentences Neuro General: patient oriented x3, moves all extremities and CN's II-XI intact bilaterally Cognition (Neuro): normal cognition Psych Appearance: grossly normal Mental Status: mental status grossly normal Assessment & Plan Assessment & Plan (1) Amnesia memory loss: Code(s): R41.3 - Other amnesia (2) Memory change: Code(s): R41.3 - Other amnesia (3) Obstructive sleep apnea: Code(s): G47.33 - Obstructive sleep apnea (adult) (pediatric) Plan Continue to use APAP at [id number] as patient experiences good clinical effects. Stressed compliance, use CPAP nightly and more than 4 hrs. Advised patient to try to have routine sleep schedule and try magnesium 400 mg qHS. Encouraged patient to increase physical activity. Medications: New magnesium oxide 400 mg PO DAILY 30 days 30 tabs 6RF Coding Level of Care Code Est Pt Level 4 (60941) Diagnoses Amnesia memory loss R41.3 Memory change R41.3 Obstructive sleep apnea G47.33
[2023-07-16 09:28] VITALS: BP 130/86; O2SAT 97
== END 2023-07-16 09:56 | disposition home or self-care (01) ==
PROVIDERS: PCP Internal Medicine; Visit Provider Nurse Practitioner Family
DX: R41.3 Other amnesia (principal); G47.33 Obstructive sleep apnea (adult) (pediatric)
CPT/HCPCS: 99214

== ENCOUNTER → 2023-07-16 09:14 | Outpatient (BNVA) | payer OTHER, SELFPAY | PROVIDERS: PCP Internal Medicine; Visit Provider Nurse Practitioner Family | DX: R41.3 Other amnesia (principal); G47.33 Obstructive sleep apnea (adult) (pediatric); Z99.89 Dependence on other enabling machines and devices | CPT/HCPCS: 99212 ==

== ENCOUNTER 2023-07-23 09:52 | Outpatient (AMB) | payer OTHER, SELFPAY ==
--- NOTE | 2023-07-23 09:53 | A.OFFVIS_ITS ---
Intake Vital Signs 07/23/23 10:00 Height 5 ft 2 in Weight 246 lb BMI 45.0 BP 132/62 Blood Pressure Location Lt brachial Position Sitting Respiration 14 Pulse 76 Pulse Source Pulse Oximeter Pulse Oximetry (%) 98 Oxygen Delivery Method Room Air Intake Visit Reasons: PILL COUNT/confirmed Allergies adhesive tape Allergy (Intermediate, Verified 07/23/23 10:01) skin breakdown HPI HPI Comments History of Present Illness Details Urvashi presents to the office today for follow up chronic pain and chronic opioid therapy management. Patient is prescribed Tramadol 50mg po BID as needed. Patient arrived today with the expectation of having 18 pills, she presented 25 pills which were counted in the presence of two staff members and returned to the patient in the original prescription bottle. This demonstrates responsible attitude toward patient's opioid medications. Pain is reported today as 2/10 and last dose of pain medication was taken at 08:43 this morning. Pain is well managed on current opioid regimen. Patient denies any recent changes or exacerbations of chronic pain and states she is able to engage in activities of daily living with little interruption due to chronic pain. Patient denies side effects including somnolence, constipation, itching, dyspnea, rash, dizziness or weakness. Prior visit with Dr Ratliff: Urvashi is a very pleasant 57 year old female who presents to the office for follow up chronic pain and chronic opioid therapy management. Last time she was in this office and she was prescribed tramadol 50 mg t.i.d.. She came today with excess of her pills. She brought to us 30 pills from November a and 20 pills from last month. She supposed to have no pills today in her possession. [facility] prescribed to much of the pills for her. We agreed that from now on I will be prescribing her to pills a day. We destroyed pills from November. That left her with 21 pills for this month and. I will restart her medication in 10 days from now which will be 05/09/2023. After we will establish that she is okay with his her medication prescriptions I will continue to see her once in 2 months for the appointments and pill counts. Patient denies any side effects including constipation, abdominal pain, somnolence, nausea, dizziness or falls. She previously had SCS trial with stimwave but did not tolerate, does not want to proceed with SCS at this time. Previously: She? went with me on transforaminal epidural spinal cord stimulator with stim wave technology.? After the procedure? she reported pain exacerbation in radicular distribution she reported numbness in left lower extremity.? During the procedure the insertion of the stimulating wires was quite difficult probably due to foraminal stenosis on those sites.? Her physical exam did not demonstrate any significant roots see below.? The CT scan which was performed to her in the emergency room did not demonstrate any hematoma or any peripheral nerve damage.? She went for EMG done by Dr. Whitfield.? Only peripheral neuropathy was found on EMG.? There were no acute radiculopathy secondary to needle penetration to the nerve roots.? The patient was treated with gabapentin and short course steroid therapy.? She reports that numbness is improving now.? She supposed to go for [employer] trial of spinal cord stimulator as we planned before...,.? [facility] Medical History Allergies Back pain Cardiac pacemaker in situ Cardiomyopathy Chronic pain syndrome Complex regional pain syndrome i of left lower limb GERD (gastroesophageal reflux disease) HTN (hypertension) Lumbar back pain with radiculopathy affecting left lower extremity Osteoarthritis of left knee Second degree AV block Spondylosis of lumbosacral spine with radiculopathy Stress incontinence Urinary incontinence in female Surgical History H/O gastric bypass Gastric bypass status for obesity Hx of cholecystectomy Hx of breast reduction, elective Hx of colonoscopy History of esophagogastroduodenoscopy (EGD) History of permanent cardiac pacemaker placement Family History (Updated 05/09/23 @ 10:23 by Sanna Munroe CMA) Father Asthma Mother HTN (hypertension) Alzheimer disease Brother Cardiac pacemaker Sister Colon cancer Metastatic cancer (Updated 07/16/23 @ 09:28 by Sanna Munroe CMA) Housing: Apartment Alcohol intake: former Patient Tobacco Use Status: Former Tobacco user Quit Date: 7 yrs ago Cigarette Packs Per Day: 0.5 e-Cigarette/Vaping Use: Never Used service: No 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al status: unemployed and disabled 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 Cognitive needs: No Hearing needs: No Vision needs: Yes Review of Systems Const All systems reviewed & are unremarkable except as noted in HPI and below Physical Exam Vital Signs: Last Vital Signs Pulse 76 07/23/23 10:00 Resp 14 07/23/23 10:00 BP 132/62 07/23/23 10:00 Pulse Ox 98 07/23/23 10:00 Oxygen Delivery Method Room Air 07/23/23 10:00 BMI result Body Mass Index 45.0 General: awake, alert, oriented. Answers questions appropriately. Fully engaged in examination. Skin: warm, dry, intact without visible rashes or lesions. HEENT: Normocephalic. Hearing intact. Cardiac: External chest normal in appearance. Respiratory: No cough, audible wheezing or stridor. Abdomen: without gross distension. MS: No obvious swelling or deformities. Able to transition from sit to stand unassisted. Neurological: Oriented to person, place, time and situation. Thought process intact. Ambulates with steady gait utilizing cane for assistance. Psychiatric: Appropriate mood and affect. Good judgment and insight. Const Other: Assessment & Plan Assessment & Plan (1) Osteoarthritis of left hip: Code(s): M16.12 - Unilateral primary osteoarthritis, left hip (2) Spondylosis of lumbosacral spine with radiculopathy: Code(s): M47.27 - Other spondylosis with radiculopathy, lumbosacral region (3) Chronic pain syndrome: Code(s): G89.4 - Chronic pain syndrome (4) Complex regional pain syndrome i of left lower limb: Code(s): G90.522 - Complex regional pain syndrome I of left lower limb Plan [employer] was reviewed and without concerns. No obvious signs of diversion, a buse or misuse of the opioid medications. Refill sent today for Tramadol 50mg po BID prn with advance date of 08/04/2023. Stimwave trial L2-L3 L3-L4 done previously but patient reported increased numbness to lateral left thigh. Post procedure CT and EMG were completed which did not demonstrate evidence of acute pathology or radiculopathy. EMG did show evidence of peripheral neuropathy. Due to the side effects, neuropathy and interaction with her pacemaker she does not want to proceed with SCS at this time. Patient to follow-up in the office in 2 months, sooner if needed. All questions and concerns have been answered and patient agrees with the plan. Medications: Refilled tramadol 50 mg PO BID PRN 60 tabs 1RF pain Coding Level of Care Code Est Pt Level 3 (81452) Diagnoses Osteoarthritis of left hip M16.12 Spondylosis of lumbosacral spine with radiculopathy M47.27 Chronic pain syndrome G89.4 Complex regional pain syndrome i of left lower limb G90.522
[2023-07-23 10:00] VITALS: BP 132/62; PULSE 76; RESP 14; O2SAT 98; BMI 45.0
== END 2023-07-23 10:18 | disposition home or self-care (01) ==
PROVIDERS: PCP Internal Medicine; Visit Provider Registered Nurse Emergency
DX: G89.4 Chronic pain syndrome (principal); M16.12 Unilateral primary osteoarthritis, left hip; M47.27 Other spondylosis with radiculopathy, lumbosacral region; Z79.891 Long term (current) use of opiate analgesic; G90.522 Complex regional pain syndrome I of left lower limb
CPT/HCPCS: 99213

== ENCOUNTER → 2023-07-23 09:52 | Outpatient (BNVA) | payer OTHER, SELFPAY | PROVIDERS: PCP Internal Medicine; Visit Provider Registered Nurse Emergency | DX: G90.522 Complex regional pain syndrome I of left lower limb (principal); M47.27 Other spondylosis with radiculopathy, lumbosacral region; M16.12 Unilateral primary osteoarthritis, left hip; G89.4 Chronic pain syndrome | CPT/HCPCS: 99212 ==

== ENCOUNTER 2023-09-15 12:34 | Outpatient (AMB) | payer OTHER, SELFPAY ==
--- NOTE | 2023-09-15 13:00 | A.OFFVIS_ITS ---
Intake Vital Signs 09/15/23 13:01 Height 5 ft 2 in Weight 246 lb 14.684 oz BMI 45.2 BP 138/84 Blood Pressure Location Lt brachial Position Sitting Pulse 66 Intake Visit Reasons: 6 mth w/ [employer] Intake Note: 6 month follow-up with [employer] with ekg feeling ok Allergies adhesive tape Allergy (Intermediate, Verified 09/02/23 10:35) skin breakdown Medication List - Last Reconciled 09/15/23 by Gabriel Salcedo MD cetirizine 10 mg PO DAILY cholecalciferol (vitamin D3) (Vitamin D3) 2,000 units PO DAILY 90 days estradiol (Vagifem) 10 mcg vaginal 2XW furosemide 10 mg (1/2 x 20 mg) PO QAM gabapentin 400 mg PO TID 30 days ipratropium bromide 2 sprays intranasal BID ketotifen fumarate 0.025%(0.035%) 0.025 drps ophthalmic (eye) DAILY lisinopril 2.5 mg PO DAILY magnesium oxide 400 mg PO DAILY 30 days melatonin 3 mg PO BEDTIME PRN metoprolol succinate ER 25 mg PO DAILY mirabegron ER (Myrbetriq) 50 mg PO DAILY sutdgirztpzb-ksq-ozmk-FA-vit K 45 mg iron- 800 mcg-120 mcg (Bariatric Multivitamins) 1 cap PO .QD salicylic acid 6% 1 appl topical BEDTIME 7 days tramadol 50 mg PO BID PRN vitamin A 2 caps PO DAILY walker As directed HPI HPI Comments History of Present Illness Details Urvashi comes for follow-up. She says she is multiple falls and has poor balance. He is currently undergoing neurologic evaluation. No cardiac symptoms to report. Patient denies any lightheadedness, syncope. Denies any heart failure symptoms. Takes all her medications. Recently was told by neurologist that she had a slow pulse. Reviewing her EKG appears that she is frequent PVCs that could account for slow pulse calculation. [facility] Medical History Urinary incontinence in female Stress incontinence Lumbar back pain with radiculopathy affecting left lower extremity GERD (gastroesophageal reflux disease) HTN (hypertension) Complex regional pain syndrome i of left lower limb Chronic pain syndrome Cardiac pacemaker in situ Cardiomyopathy Second degree AV block Allergies Osteoarthritis of left knee Spondylosis of lumbosacral spine with radiculopathy Back pain Surgical History H/O gastric bypass Gastric bypass status for obesity Hx of cholecystectomy Hx of breast reduction, elective Hx of colonoscopy History of esophagogastroduodenoscopy (EGD) History of permanent cardiac pacemaker placement Family History Father Asthma Mother HTN (hypertension) Alzheimer disease Brother Cardiac pacemaker Sister Colon cancer Metastatic cancer Social History Housing: Apartment Alcohol intake: former Patient Tobacco Use Status: Former Tobacco user Quit Date: 7 yrs ago Cigarette Packs Per Day: 0.5 e-Cigarette/Vaping Use: Never Used service: No 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al status: unemployed and disabled 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 Cognitive needs: No Hearing needs: No Vision needs: Yes Review of Systems Const Denies chills, Denies fatigue, Denies fever(s), Denies frequent falls, Denies weakness, Denies weight gain and Denies weight loss ENT Denies dizziness Card Denies chest pain, Denies leg edema, Denies lightheadedness, Denies palpitations, Denies dyspnea, Denies dyspnea on exertion, Denies orthopnea and Denies other (loss of consciousness) Resp Denies cough, Denies dyspnea and Denies dyspnea on exertion GI Denies hematochezia and Denies change in stool character Musc Denies abnormal gait, Denies muscle weakness, Denies numbness, Denies radiating pain into limb and Denies tingling Neuro Denies abnormal gait, Denies dizziness, Denies frequent falls, Denies numbness, Denies tingling and Denies weakness Endo Denies fatigue and Denies palpitations Physical Exam Vital Signs: Last Vital Signs Pulse 66 09/15/23 13:01 BP 138/84 09/15/23 13:01 BMI result Body Mass Index 45.2 Office Procedures Cardiac Device Check Cardiac Device Check Details: Dual-chamber [employer] pacemaker in place. Programmed in DDDR at 60 beats per minute. Atrial pacing 23% of time. Ventricular pacing 77% time. Battery life is low less than 6 months. Atrial pacing thresholds adequate. RV pacing thresholds are slightly elevated. Atrial and ventricular lead impedance is stable. Atrial ventricular sensing is adequate. No atrial arrhythmias noted. No sustained ventricular arrhythmias noted. 91392-OX Cardiac Device Check, pacemaker dual lead Procedure code (CPT) selection complete EKG Details: EKG shows atrially sensed, ventricular paced rhythm with frequent PVCs [id number], Complete Assessment & Plan Assessment & Plan (1) Cardiac pacemaker in situ: Code(s): Z95.0 - Presence of cardiac pacemaker Plan: Cardiac pacemaker in-situ for advanced infra-Hisian AV block. Pacemaker is working well. Battery life is low. Follow-up in 3 months time. (2) Cardiomyopathy: Code(s): I42.9 - Cardiomyopathy, unspecified Plan: Cardiomyopathy which is multifactorial probably related to obesity as well as obstructive sleep apnea. LV ejection fraction low end of normal. Also could be contributed by constant RV pacing. Continue neurohormonal modulation as tolerated. Not much room to uptitrate due to low blood pressure. Continue current low-dose lisinopril and metoprolol therapy. She is also on Lasix therapy at a low dose. Continue the same. Daily weight monitoring avoidance of salt loading was discussed. Will follow up in the clinic in 3 months time, sooner p.r.n.. Thank you for allowing me to partake in her care Coding Level of Care Code Est Pt Level 4 (20121) Diagnoses Cardiac pacemaker in situ Z95.0 Cardiomyopathy I42.9 CPT Codes Cardiac Device Check - Cardiac Device 2: [id number] Cardiac Device Check, pacemaker dual lead ([id number]) EKG - CPT: 94618-[id number], Complete ([id number])
[2023-09-15 13:01] VITALS: BP 138/84; PULSE 66; BMI 45.2
== END 2023-09-15 13:34 | disposition home or self-care (01) ==
PROVIDERS: PCP Internal Medicine; Visit Provider Internal Medicine Cardiovascular Disease
DX: I42.9 Cardiomyopathy, unspecified (principal); Z95.0 Presence of cardiac pacemaker
CPT/HCPCS: 93280; 99214

== ENCOUNTER → 2023-09-15 12:34 | Outpatient (BNVA) | payer OTHER, SELFPAY | PROVIDERS: PCP Internal Medicine; Visit Provider Internal Medicine Cardiovascular Disease | DX: Z45.018 Encounter for adjustment and management of other part of cardiac pacemaker (principal); I42.9 Cardiomyopathy, unspecified | CPT/HCPCS: 93005; 93280; 99212 ==

== ENCOUNTER 2023-09-24 09:52 | Outpatient (AMB) | payer OTHER, SELFPAY ==
--- NOTE | 2023-09-24 10:07 | A.OFFVIS_ITS ---
Intake Vital Signs 09/24/23 10:08 Height 5 ft 2 in Weight 243 lb 8 oz BMI 44.5 BP 122/72 Blood Pressure Location Lt brachial Position Sitting Respiration 18 Pulse 75 Pulse Source Pulse Oximeter Pulse Oximetry (%) 97 Oxygen Delivery Method Room Air Intake Visit Reasons: Medication Count - LVM Allergies adhesive tape Allergy (Intermediate, Verified 09/24/23 10:07) skin breakdown HPI HPI Comments History of Present Illness Details Urvashi presents to the office today for follow up chronic pain and chronic opioid therapy management. Patient is prescribed Tramadol 50mg po BID as needed. Patient arrived today with the expectation of having 14 pills, she presented 18 pills which were counted in the presence of two staff members and returned to the patient in the original prescription bottle. This demonstrates responsible attitude toward patient's opioid medications. Pain is reported today as 4/10 and last dose of pain medication was taken at 08:49 this morning. Pain is adequately managed on current opioid regimen. Patient denies side effects including somnolence, constipation, itching, dyspnea, rash, dizziness or weakness. She reports today bilateral knee pain has been worse with changes in the weather, pain with walking. She has appt with ortho tomorrow for bilateral knee injections. Prior visit with Dr Ratliff: Urvashi is a very pleasant 57 year old female who presents to the office for follow up chronic pain and chronic opioid therapy management. Last time she was in this office and she was prescribed tramadol 50 mg t.i.d.. She came today with excess of her pills. She brought to us 30 pills from November a and 20 pills from last month. She supposed to have no pills today in her possession. [facility] prescribed to much of the pills for her. We agreed that from now on I will be prescribing her to pills a day. We destroyed pills from November. That left her with 21 pills for this month and. I will restart her medication in 10 days from now which will be 05/09/2023. After we will establish that she is okay with his her medication prescriptions I will continue to see her once in 2 months for the appointments and pill counts. Patient denies any side effects including constipation, abdominal pain, somnolence, nausea, dizziness or falls. She previously had SCS trial with stimwave but did not tolerate, does not want to proceed with SCS at this time. Previously: She? went with me on transforaminal epidural spinal cord stimulator with stim wave technology.? After the procedure? she reported pain exacerbation in radicular distribution she reported numbness in left lower extremity.? During the procedure the insertion of the stimulating wires was quite difficult probably due to foraminal stenosis on those sites.? Her physical exam did not demonstrate any significant roots see below.? The CT scan which was performed to her in the emergency room did not demonstrate any hematoma or any peripheral nerve damage.? She went for EMG done by Dr. Whitfield.? Only peripheral neuropathy was found on EMG.? There were no acute radiculopathy secondary to needle penetration to the nerve roots.? The patient was treated with gabapentin and short course steroid therapy.? She reports that numbness is improving now.? She supposed to go for [employer] trial of spinal cord stimulator as we planned before...,.? [facility] Medical History Urinary incontinence in female Stress incontinence Lumbar back pain with radiculopathy affecting left lower extremity GERD (gastroesophageal reflux disease) HTN (hypertension) Complex regional pain syndrome i of left lower limb Chronic pain syndrome Cardiac pacemaker in situ Cardiomyopathy Second degree AV block Allergies Osteoarthritis of left knee Spondylosis of lumbosacral spine with radiculopathy Back pain Surgical History H/O gastric bypass Gastric bypass status for obesity Hx of cholecystectomy Hx of breast reduction, elective Hx of colonoscopy History of esophagogastroduodenoscopy (EGD) History of permanent cardiac pacemaker placement Family History Father Asthma Mother HTN (hypertension) Alzheimer disease Brother Cardiac pacemaker Sister Colon cancer Metastatic cancer Social History Housing: Apartment Alcohol intake: former Patient Tobacco Use Status: Former Tobacco user Quit Date: 7 yrs ago Cigarette Packs Per Day: 0.5 e-Cigarette/Vaping Use: Never Used service: No 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al status: unemployed and disabled 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 Cognitive needs: No Hearing needs: No Vision needs: Yes Review of Systems Const All systems reviewed & are unremarkable except as noted in HPI and below Physical Exam Vital Signs: Last Vital Signs Pulse 75 09/24/23 10:08 Resp 18 09/24/23 10:08 BP 122/72 09/24/23 10:08 Pulse Ox 97 09/24/23 10:08 Oxygen Delivery Method Room Air 09/24/23 10:08 BMI result Body Mass Index 44.5 General: awake, alert, oriented. Answers questions appropriately. Fully engaged in examination. Skin: warm, dry, intact without visible rashes or lesions. HEENT: Normocephalic. Hearing intact. Cardiac: External chest normal in appearance. Respiratory: No cough, audible wheezing or stridor. Abdomen: without gross distension. MS: No obvious swelling or deformities. Able to transition from sit to stand unassisted. Neurological: Oriented to person, place, time and situation. Thought process intact. Ambulates with steady gait utilizing cane for assistance. Psychiatric: Appropriate mood and affect. Good judgment and insight. Const Other: Results Reviewed Results Reviewed: 11/05/2021 EXAMINATION: CT LUMBAR SPINE WITHOUT CONTRAST FINDINGS: The heights of the lumbar vertebrae are well-maintained. Subtle grade 1 anterolisthesis of L4 over L5. Mild facet joint arthritic changes are noted at the lower lumbar spine. Posterior appendages are intact.? No evidence of any fracture present. No evidence of any paraspinal, soft tissue hematoma present. The visualized retroperitoneum grossly appears unremarkable. Significant motion artifacts are present. IMPRESSION: No CT evidence of any compression fracture or paraspinal hematoma. Mild grade 1 anterolisthesis of L4 over L5 and facet joint arthritic changes at lower lumbar spine. Assessment & Plan Assessment & Plan (1) Osteoarthritis of left hip: Code(s): M16.12 - Unilateral primary osteoarthritis, left hip (2) Spondylosis of lumbosacral spine with radiculopathy: Code(s): M47.27 - Other spondylosis with radiculopathy, lumbosacral region (3) Chronic pain syndrome: Code(s): G89.4 - Chronic pain syndrome (4) Complex regional pain syndrome i of left lower limb: Code(s): G90.522 - Complex regional pain syndrome I of left lower limb Plan [employer] was reviewed and without concerns. No obvious signs of diversion, abuse or misuse of the opioid medications. Refill sent today for Tramadol 50mg po BID prn with advance date of 10/01/23. Stimwave trial L2-L3 L3-L4 done previously but patient reported increased numbness to lateral left thigh. Post procedure CT and EMG were completed which did not demonstrate evidence of acute pathology or radiculopathy. EMG did show evidence of peripheral neuropathy. Due to the side effects, neuropathy and interaction with her pacemaker she does not want to proceed with SCS at this time. Patient to follow-up in the office in 2 months, sooner if needed. All questions and concerns have been answered and patient agrees with the plan. Medications: Changed From tramadol 50 mg PO BID PRN 60 tabs 1RF pain To tramadol 50 mg PO BID 30 days PRN 60 tabs 1RF pain Coding Level of Care Code Est Pt Level 4 (12717) Diagnoses Osteoarthritis of left hip M16.12 Spondylosis of lumbosacral spine with radiculopathy M47.27 Chronic pain syndrome G89.4 Complex regional pain syndrome i of left lower limb G90.522
[2023-09-24 10:08] VITALS: BP 122/72; PULSE 75; RESP 18; O2SAT 97; BMI 44.5
== END 2023-09-24 10:16 | disposition home or self-care (01) ==
PROVIDERS: PCP Internal Medicine; Visit Provider Registered Nurse Emergency
DX: M16.12 Unilateral primary osteoarthritis, left hip (principal); M47.27 Other spondylosis with radiculopathy, lumbosacral region; G89.4 Chronic pain syndrome; G90.522 Complex regional pain syndrome I of left lower limb
CPT/HCPCS: 99214

== ENCOUNTER → 2023-09-24 09:52 | Outpatient (BNVA) | payer OTHER, SELFPAY | PROVIDERS: PCP Internal Medicine; Visit Provider Registered Nurse Emergency | DX: Z51.81 Encounter for therapeutic drug level monitoring (principal); F11.20 Opioid dependence, uncomplicated; M16.12 Unilateral primary osteoarthritis, left hip; M47.27 Other spondylosis with radiculopathy, lumbosacral region; G90.522 Complex regional pain syndrome I of left lower limb; G89.4 Chronic pain syndrome | CPT/HCPCS: 99212 ==

== ENCOUNTER 2023-09-25 12:27 | Outpatient (REF) | payer OTHER, SELFPAY ==
--- NOTE | ~2023-09-25 | XR_ITS ---
STUDY: Standing knees, bilateral knees INDICATION: Knee pain COMPARISON: 09/20/2020 TECHNIQUE: Single standing knee view, 2 view right and left knees. FINDINGS: On standing knee view, right knee slightly higher than the left. Bilateral mild medial knee and patellofemoral narrowings are seen. Bilateral patellar spurring. No fracture or dislocation bilaterally. Small left suprapatellar effusion. XR/XR knee LT 2V IMPRESSION: Mild degenerative changes.
--- NOTE | ~2023-09-25 | XR_ITS ---
STUDY: Standing knees, bilateral knees INDICATION: Knee pain COMPARISON: 09/20/2020 TECHNIQUE: Single standing knee view, 2 view right and left knees. FINDINGS: On standing knee view, right knee slightly higher than the left. Bilateral mild medial knee and patellofemoral narrowings are seen. Bilateral patellar spurring. No fracture or dislocation bilaterally. Small left suprapatellar effusion. XR/XR knee standing BI IMPRESSION: Mild degenerative changes.
--- NOTE | ~2023-09-25 | XR_ITS ---
STUDY: Standing knees, bilateral knees INDICATION: Knee pain COMPARISON: 09/20/2020 TECHNIQUE: Single standing knee view, 2 view right and left knees. FINDINGS: On standing knee view, right knee slightly higher than the left. Bilateral mild medial knee and patellofemoral narrowings are seen. Bilateral patellar spurring. No fracture or dislocation bilaterally. Small left suprapatellar effusion. XR/XR knee RT 2V IMPRESSION: Mild degenerative changes.
== END 2023-09-25 12:28 | disposition home or self-care (01) ==
LOC: HO.HOSX 12:27
PROVIDERS: Visit Provider Orthopaedic Surgery
DX: M17.0 Bilateral primary osteoarthritis of knee (principal)
CPT/HCPCS: 20610; 73560; 73565; 99212; J0665; J1100

== ENCOUNTER 2023-09-25 13:22 | Outpatient (AMB) | payer OTHER, SELFPAY ==
--- NOTE | 2023-09-25 13:59 | A.OFFVIS_ITS ---
Intake Intake Visit Reasons: ov- Primary osteoarthritis of knees, bilateral Intake Note: Urvashi is a 57 year old female who presents today for a follow up of her bilateral knee OA. Last Injection done 12/09/22. Patient reports that these injections were helpful and she would like to repeat injections today. Allergies adhesive tape Allergy (Intermediate, Verified 09/24/23 10:07) skin breakdown HPI ov- Primary osteoarthritis of knees, bilateral HPI Details Urvashi is a 57 year old woman with bilateral knee OA & chronic pain syndrome. She was last injected on 12/09/22 bilaterally, with good relief, and she would like repeat injections today. [facility] Medical History Urinary incontinence in female Stress incontinence Lumbar back pain with radiculopathy affecting left lower extremity GERD (gastroesophageal reflux disease) HTN (hypertension) Complex regional pain syndrome i of left lower limb Chronic pain syndrome Cardiac pacemaker in situ Cardiomyopathy Second degree AV block Allergies Osteoarthritis of left knee Spondylosis of lumbosacral spine with radiculopathy Back pain Surgical History H/O gastric bypass Gastric bypass status for obesity Hx of cholecystectomy Hx of breast reduction, elective Hx of colonoscopy History of esophagogastroduodenoscopy (EGD) History of permanent cardiac pacemaker placement Family History Father Asthma Mother HTN (hypertension) Alzheimer disease Brother Cardiac pacemaker Sister Colon cancer Metastatic cancer Social History Housing: Apartment Alcohol intake: former Patient Tobacco Use Status: Former Tobacco user Quit Date: 7 yrs ago Cigarette Packs Per Day: 0.5 e-Cigarette/Vaping Use: Never Used service: No 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al status: unemployed and disabled 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 Cognitive needs: No Hearing needs: No Vision needs: Yes Review of Systems Const All systems reviewed & are unremarkable except as noted in HPI and below Physical Exam Const General: no acute distress, alert and awake Orientation/consciousness: patient oriented x3 HEENT Head: Yes normocephalic and Yes atraumatic Eyes EOM: EOMs intact bilaterally Resp Effort & Inspection: normal respiratory effort and able to speak in complete sentences Cardio Jugular venous distension: no JVD Skin General skin exam: turgor normal Rashes: no rashes Neuro General: patient oriented x3 Extrem Other: medial comaprtment ttp bilaterally skin c/d/i no effusion Psych Appearance: grossly normal Affect: normal affect Attitude: cooperative Office Procedures Joint Injection/Drain Joint Injection/Drain Details: Injected 1 mL of Decadron and 3 mL 1% lidocaine and 3 mL of 0.25% Marcaine. Site was prepped using aseptic technique. Patient tolerated the procedure well. Primary Site: right knee Secondary Site: left knee Approach Used: anterolateral Coding - Large joint 10451 - Glenohumeral/Tronchanteric Bursa/Intraarticular Procedure code (CPT) selection complete Results Reviewed Results Reviewed: mild-moderate medial compartment OA bilaterally Assessment & Plan Assessment & Plan (1) Localized osteoarthritis of knees, bilateral: Code(s): M17.0 - Bilateral primary osteoarthritis of knee Plan: OA bilateral knees Injected Recommend continue activity as tolerated. Plan Prepared for Leo Sandhu MD by Leif Conner, medical claims examiner, on 09/25/23 at 2:06 PM, EST. Orders: Orders XR knee standing BI 09/25/23 M25.569 - Pain in unspecified knee XR knee RT 2V 09/25/23 M25.569 - Pain in unspecified knee XR knee LT 2V 09/25/23 M25.569 - Pain in unspecified knee Coding Level of Care Code Est Pt Level 3 (06305) Diagnoses Localized osteoarthritis of knees, bilateral M17.0 CPT Codes Coding - Large joint: 85246 - Large joint ([id number]) Coding - Joint 7: - Glenohumeral/Tronchanteric Bursa/Intraarticular ([id number])
== END 2023-09-25 14:40 | disposition home or self-care (01) ==
PROVIDERS: PCP Internal Medicine; Visit Provider Orthopaedic Surgery
DX: M17.0 Bilateral primary osteoarthritis of knee (principal)
CPT/HCPCS: 20610; 99213

== ENCOUNTER 2023-09-29 13:24 | Outpatient (AMB) | payer OTHER, SELFPAY ==
--- NOTE | 2023-09-29 13:26 | A.OFFVIS_ITS ---
Intake Intake Visit Reasons: 3m follow up Intake Note: Patient presents today for a 3 months follow-up: Meds: Mirabegron/Estradiol Allergies to Antibiotic: No Known Allergies Blood Thinner: None Director Title Required: Yes Director Title Language: Bi Technical Lead Name: Josue Mackay, TOMMY/SHERRY Moura Information Interpreted: non-clinical & clinical Accompanied by: Self / Same As Patient Allergies adhesive tape Allergy (Intermediate, Verified 10/29/23 12:41) skin breakdown HPI HPI Comments History of Present Illness Details Urvashi is a 58-year-old female who presents today to the office for a Telehealth follow-up, as she has the Flu. 09/29/23--she was last seen in the office on 06/23/2023 for office cystoscopy, findings bladder wall thickening. She is on anticholinergics for lower urinary tract symptoms of urgency and incontinence. Today she c/o's of spraying of urinary stream, she does not feel the medication is working. Plan-discussed Will sche urodynamics. Review of chart: 06/23/23? She is followed today for a cystoscopy procedure. The patient is a [place]- speaking female. A certified spanish interpreter was present during the visit. She has comorbidities, obesity, sleep apnea. She denies history of a hysterectomy. She has had 3 pregnancies, 2 vaginal deliveries, 1 miscarriage.? She was last seen by me on 03/20/23 for urinary frequency. The patient was prescribed Myrbetriq 50 mg daily for OAB symptoms. Ordered a renal ultrasound to be obtained before the Cystoscopy during that time. ? I reviewed the retroperitoneum US results from 06/12/23 revealed right-sided pelvic fullness without nephrolithiasis.? Postvoid bladder volume of 22.2 mL with visualization of the bilateral ureteral jets. Cystoscopy procedure:Cystoscopy findings: mild bladder wall thickening. bladder Filled with 200 mL sterilel water. After removing the cystoscope, Pelvic examination--performed, there was no leakage with valsalva, and minimal leakage with cough in supine position, no significant vaginal prolapse. vaginal atrophy. Plan: Continue Myrbetriq 50 mg daily. Ordered vagifem 10 mEq twice a week. Patient instructed on kegel exercises and to do 10 - 20 repetitions twice a day. Follow-up in 4 months. 09/29/23--Plan: schedule urodynamics [facility] Medical History Urinary incontinence in female Stress incontinence Lumbar back pain with radiculopathy affecting left lower extremity GERD (gastroesophageal reflux disease) HTN (hypertension) Complex regional pain syndrome i of left lower limb Chronic pain syndrome Cardiac pacemaker in situ Cardiomyopathy Second degree AV block Allergies Osteoarthritis of left knee Spondylosis of lumbosacral spine with radiculopathy Back pain Surgical History H/O gastric bypass Gastric bypass status for obesity Hx of cholecystectomy Hx of breast reduction, elective Hx of colonoscopy History of esophagogastroduodenoscopy (EGD) History of permanent cardiac pacemaker placement Family History Father Asthma Mother HTN (hypertension) Alzheimer disease Brother Cardiac pacemaker Sister Colon cancer Metastatic cancer Social History Household Members: None Housing: Apartment Do you presently have visiting nurse or other home services: Yes (SCHEDULING REPRESENTATIVE) Alcohol intake: former Comment: COUNTS CORRECT Patient Tobacco Use Status: Former Tobacco user Quit Date: 14 years (smoked x 40 years) Cigarette Packs Per Day: 0.5 e-Cigarette/Vaping Use: Never Used Advance Directives Date on File: 11/12/23 service: No 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al status: unemployed and disabled 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 Cognitive needs: No Hearing needs: No Vision needs: Yes Assessment & Plan Assessment & Plan (1) Urinary incontinence in female: Code(s): R32 - Unspecified urinary incontinence (2) Urinary frequency: Code(s): R35.0 - Frequency of micturition (3) Pelvic floor weakness: Code(s): N81.89 - Other female genital prolapse (4) Post-menopausal atrophic vaginitis: Code(s): N95.2 - Postmenopausal atrophic vaginitis (5) OAB (overactive bladder): Code(s): N32.81 - Overactive bladder Plan Schedule urodynamics Telehealth Telehealth Location of provider rendering services: practice address Location of patient: address on file Patient Identification confirmed using: Name, : Yes Telehealth method: voice only Patient verbally consented to treatment: Yes Patient verbally consented to billing insurance company: Yes Patient informed of any privacy concerns related to visit: Yes Minutes spent on Phone/Video with Pt.: 15 Coding Level of Care Code Tele Est Pt Level 3 (92554) Diagnoses Urinary incontinence in female R32 Urinary frequency R35.0 Pelvic floor weakness N81.89 Post-menopausal atrophic vaginitis N95.2 OAB (overactive bladder) N32.81
== END 2023-09-29 14:12 | disposition home or self-care (01) ==
LOC: HO.HUSH 13:24
PROVIDERS: PCP Internal Medicine; Visit Provider Urology
DX: R32 Unspecified urinary incontinence (principal); R35.0 Frequency of micturition; N81.89 Other female genital prolapse; N95.2 Postmenopausal atrophic vaginitis; N32.81 Overactive bladder
CPT/HCPCS: 99213

== ENCOUNTER → 2023-09-29 13:24 | Outpatient (BNVA) | payer OTHER, SELFPAY | PROVIDERS: PCP Internal Medicine; Visit Provider Urology ==

== ENCOUNTER 2023-10-15 13:40 | Emergency (ER) | payer OTHER, SELFPAY ==
--- NOTE | ~2023-10-15 | CT_ITS ---
EXAMINATION: CT FACIAL BONES WITHOUT CONTRAST CLINICAL INFORMATION: Jaw and nose pain after fall COMPARISON: None available. TECHNIQUE: Axial images through the facial bones without contrast. Sagittal and coronal reconstructions on the technologist workstation were performed. This CT examination was performed using dose optimization techniques as appropriate, variously including the following: *Automated exposure control *Adjustment of mA and/or kV according to patient size (this includes techniques or standardized protocols for targeted exams where dose is matched to indication/reason for exam; i.e. extremities or head) *Use of iterative reconstruction technique DLP: 245 mGy-cm FINDINGS: There are bilateral nondisplaced nasal bone fractures. The nasal septum is deviated to the left. There is minimal membranous soft tissue thickening seen in the bilateral maxillary sinuses. Paranasal sinuses, mastoid air cells and middle ears are otherwise clear. Orbits are normal. The temporomandibular joints are normal. There is poor dentition. There are degenerative changes at the C1 dens articulation. CT/CT facial bones wo IV con IMPRESSION: Bilateral nondisplaced nasal bone fractures.
--- NOTE | ~2023-10-15 | CT_ITS ---
EXAMINATION: CT CERVICAL SPINE WITHOUT CONTRAST CLINICAL INFORMATION: Neck pain after fall evaluate for fracture. COMPARISON: None available. TECHNIQUE: CT scan of cervical spine was performed reconstruction imaging performed at the acquisition workstation This CT examination was performed using dose optimization techniques as appropriate, variously including the following: *Automated exposure control *Adjustment of mA and/or kV according to patient size (this includes techniques or standardized protocols for targeted exams where dose is matched to indication/reason for exam; i.e. extremities or head) *Use of iterative reconstruction technique DLP: 550 mGy-cm FINDINGS: Vertebral bodies normally aligned with normal height. Disc spaces normal. Facets normal. No fracture, subluxation, or dislocation. Surrounding soft tissues normal. Lung apices partially visualized and clear CT/CT cervical spine wo IV con IMPRESSION: Normal CT scan of the cervical spine. Fleischner guidelines were followed.
--- NOTE | ~2023-10-15 | XR_ITS ---
EXAMINATION: XR HAND/WRIST, LEFT CLINICAL INFORMATION: Injury rule out fracture. COMPARISON: None TECHNIQUE: PA, lateral, and oblique views of the left hand and wrist. FINDINGS: There is loss of PIP and DIP joint spaces without periarticular spurring. No visible acute fracture, dislocation or subluxation seen. XR/XR hand wrist LT IMPRESSION: Mild degenerative changes PIP and DIP joints. No visible acute fracture or dislocation seen.
--- NOTE | ~2023-10-15 | CT_ITS ---
EXAMINATION: CT HEAD WITHOUT CONTRAST CLINICAL INFORMATION: Fall. Rule out bleed. COMPARISON: None available. TECHNIQUE: Contiguous axial imaging was performed from the skull base to vertex without intravenous administration of contrast. This CT examination was performed using dose optimization techniques as appropriate, variously including the following: *Automated exposure control *Adjustment of mA and/or kV according to patient size (this includes techniques or standardized protocols for targeted exams where dose is matched to indication/reason for exam; i.e. extremities or head) *Use of iterative reconstruction technique DLP: 716 mGy-cm FINDINGS: There is no evidence of an extra-axial collection. There is no evidence of intra or extra-axial hemorrhage. The ventricles and extra-axial CSF spaces are appropriate. Wei-white matter differentiation is normal. No mass, mass effect or infarct. No skull fracture. Mild inflammatory changes of the maxillary sinuses. Paranasal sinuses, mastoid air cells and middle ears are otherwise clear. CT/CT head/brain wo IV con IMPRESSION: No acute intracranial findings.
[2023-10-15 13:46] VITALS: BP 132/88; PULSE 85; O2SAT 94
[2023-10-15 14:24] VITALS: BP 128/60; PULSE 66; RESP 18; TEMP 36.1; O2SAT 99; BMI 43.2
--- NOTE | 2023-10-15 14:24 | ED.FALL ---
HPI - Fall General Chief Complaint: Fall Stated Complaint: FALL , NO LOC Time Seen by Provider: 10/15/23 17:30 History of Present Illness HPI Narrative: Patient was walking in the street with her shopping cart, tripped over the shopping cart and fell forward hitting her nose and forehead against the sidewalk, she also has some pain in her chin, she has a mild headache and some mild neck pain, she had no loss of consciousness no vomiting no confusion no retrograde amnesia no vision changes no extremity injuries She had no preceding symptoms she had no dizziness chest pain palpitations, denies any dizziness Related Data Home Medications Medication Instructions Recorded Confirmed cetirizine 10 mg tablet 10 mg PO DAILY 09/20/21 09/15/23 ipratropium bromide 42 mcg (0.06 2 spray intranasal BID 09/20/21 09/15/23 %) nasal spray ketotifen fumarate 0.025 % (0.035 0.025 drp ophthalmic (eye) DAILY 09/20/21 09/15/23 %) eye drops melatonin 3 mg capsule 3 mg PO BEDTIME PRN Sleep 06/25/23 09/15/23 Previous Rx's Medication Instructions Recorded xizdddlg-bviutfsh-[id number] 45 mg-folic 1 cap PO .QD #90 caps 06/22/21 acid 800 mcg-vit K 120 mcg capsule (Bariatric Multivitamins) yovany #1 ea 01/01/22 salicylic acid 6 % topical cream 1 appl topical BEDTIME 7 days #454 06/26/22 grams lisinopril 2.5 mg tablet 2.5 mg PO DAILY #90 tabs 03/07/23 vitamin A 3,000 mcg (10,000 unit) 2 cap PO DAILY #180 caps 05/27/23 capsule cholecalciferol (vitamin D3) 50 2,000 unit PO DAILY 90 days #90 05/28/23 mcg (2,000 unit) capsule (Vitamin caps D3) furosemide 20 mg tablet 10 mg (1/2 x 20 mg) PO QAM #45 tabs 06/04/23 estradiol 10 mcg vaginal tablet 10 mcg vaginal 2XW #8 tabs 06/23/23 (Vagifem) mirabegron 50 mg tablet,extended 50 mg PO DAILY #90 tabs 06/23/23 release 24 hr (Myrbetriq) magnesium oxide 400 mg (241.3 mg 400 mg PO DAILY 30 days #30 tabs 07/16/23 magnesium) tablet metoprolol succinate 25 mg 25 mg PO DAILY #90 tabs 08/12/23 tablet,extended release 24 hr gabapentin 400 mg capsule 400 mg PO TID 30 days #90 caps 09/19/23 tramadol 50 mg tablet 50 mg PO BID PRN pain 30 days #60 09/24/23 tabs Allergies Allergy/AdvReac Type Severity Reaction Status Date / Time adhesive tape Allergy Intermediate skin Verified 10/15/23 14:23 breakdown PMFSH Past Medical History Source: nursing notes reviewed Medical History Urinary incontinence in female Stress incontinence Lumbar back pain with radiculopathy affecting left lower extremity GERD (gastroesophageal reflux disease) HTN (hypertension) Complex regional pain syndrome i of left lower limb Chronic pain syndrome Cardiac pacemaker in situ Cardiomyopathy Second degree AV block Allergies Osteoarthritis of left knee Spondylosis of lumbosacral spine with radiculopathy Back pain Surgical History H/O gastric bypass Gastric bypass status for obesity Hx of cholecystectomy Hx of breast reduction, elective Hx of colonoscopy History of esophagogastroduodenoscopy (EGD) History of permanent cardiac pacemaker placement Family History Family History Father Asthma Mother HTN (hypertension) Alzheimer disease Brother Cardiac pacemaker Sister Colon cancer Metastatic cancer Social History Social History Housing: Apartment Alcohol intake: former Patient Tobacco Use Status: Former Tobacco user Quit Date: 7 yrs ago Cigarette Packs Per Day: 0.5 Smoked in Last 30 Days: No e-Cigarette/Vaping Use: Never Used Use of substances other than those prescribed or required for medical reasons: No Advance Directives: No Advance Directives Information Provided: No service: No 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al status: unemployed and disabled 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 Cognitive needs: No Hearing needs: No Vision needs: Yes Physical Exam Vital Signs: Vital Signs: Last Vital Signs Temp 98.1 F 10/15/23 17:35 Pulse 70 10/15/23 19:36 Resp 16 10/15/23 19:36 BP 118/68 10/15/23 19:36 Pulse Ox 98 10/15/23 19:36 O2 Del Method Room Air 10/15/23 19:36 BMI result Body Mass Index 43.2 General appearance no distress, and cooperative Pupils equal round reactive to light extraocular motions are intact Scalp exam there is no hematoma No hemotympanum No raccoon eyes or st sign Facial exam there is some swelling over the bridge of the nose, there is no nasal septal hematoma, mandible has full range of motion, no obvious loose teeth or dental damage, there is a small abrasion to the upper lip There is some tenderness over the mandible but the mandible has a full range of motion, teeth are intact The neck has diffuse posterior tenderness including midline Respiratory no distress No tenderness over chest wall or ribs Abdomen soft nontender Extremities, there is some mild tenderness to dorsal left wrist which has good range of motion, mild swelling, skin intact Other extremities normal Neuro motor is 5/5 x4, cranial nerves 2-12 intact as tested, interaction comprehension and expression are normal, cerebellar is normal Course Course Course Narrative: Patient was walking with her cart and tripped and fell forward over the cart hitting her face, she complains of neck pain, no syncope no preceding dizziness Imaging is ordered This is rapid medical exam done in triage pending full evaluation and dispo by ER provider Head CT no acute fracture or bleed Facial CT showed nondisplaced nasal bone fractures, the septum is deviated to the left, no other fracture seen CT of the cervical spine was normal, no fractures Patient with bilateral nasal bone fractures no septal hematoma, breathing comfortably, stable throughout ER visit is discharge She normally uses a walker and is able to use a walker and do her activities of daily life at home Left wrist x-ray was normal, patient had good range of motion in the wrist Medications Administered Discontinued Medications Generic Name Dose Route Start Last Admin Trade Name Freq PRN Reason Stop Dose Admin Acetaminophen 975 mg 10/15/23 17:25 10/15/23 17:32 Acetaminophen 325 Mg Tablet PO 10/15/23 17:26 975 mg ONCE ONE Administration Diphtheria/Tetanus/Acell Pertussis 0.5 ml 10/15/23 19:01 10/15/23 19:28 Diphth,Pertus(Acell),Tet Adult 0.5 Ml Syringe IM 10/15/23 19:02 0.5 ml .ONCE ONE Administration Discharge Plan Discharge Clinical Impression: Fracture of nasal bone, Left wrist sprain Patient Disposition: Home, Self-Care Additional Instructions: CT of the face showed a broken nose If within a week it is all better and it looks normal you may not need to get it fixed, but if you have problems breathing through her nose or pain or it does not look right follow with an ENT doctor or plastic surgeon I did not see any loose or broken teeth but if you feel like her teeth are not lining up right follow with her dentist X-ray of the left wrist and hand was normal, if not better next week follow with orthopedist You got a tetanus shot today You may need a referral from primary doctor Return any time any worse condition or any concerns Prescriptions: No Action Bariatric Multivitamins 45 mg iron- 800 mcg-120 mcg capsule 1 cap PO .QD Qty: 90 3RF (LESLIE) yovany Palmer See Rx Instructions .Route Qty: 1 0RF Rx Instructions: As directed lisinopril 2.5 mg tablet 2.5 mg PO DAILY Qty: 90 3RF vitamin A 3,000 mcg (10,000 unit) capsule 2 cap PO DAILY Qty: 180 3RF cholecalciferol (vitamin D3) [Vitamin D3] 50 mcg (2,000 unit) capsule 2,000 unit PO DAILY 90 Days Qty: 90 3RF furosemide 20 mg tablet 10 mg PO QAM Qty: 45 1RF metoprolol succinate 25 mg tablet extended release 24 hr 25 mg PO DAILY Qty: 90 3RF gabapentin 400 mg capsule 400 mg PO TID 30 Days Qty: 90 8RF salicylic acid 6 % cream 1 appl topical BEDTIME 7 Days Qty: 454 0RF Rx Instructions: hydrate skin for >=5 mins before use; occlude area overnight; wash off in morning ipratropium bromide 42 mcg (0.06 %) spray,non-aerosol 2 spray intranasal BID cetirizine 10 mg tablet 10 mg PO DAILY ketotifen fumarate 0.025 % (0.035 %) drops 0.025 drp ophthalmic (eye) DAILY estradiol [Vagifem] 10 mcg tablet 10 mcg vaginal 2XW Qty: 8 5RF Rx Instructions: Use 2 times a week - apply at bedtime, Mon/Thurs Myrbetriq 50 mg tablet extended release 24 hr 50 mg PO DAILY Qty: 90 1RF magnesium oxide 400 mg (241.3 mg magnesium) tablet 400 mg PO DAILY 30 Days Qty: 30 6RF melatonin 3 mg capsule 3 mg PO BEDTIME PRN (Reason: Sleep) tramadol 50 mg tablet 50 mg PO BID PRN (Reason: pain) 30 Days Qty: 60 1RF Referrals: Leo Sandhu MD [Physician] - (Left wrist sprain) Ty Marsh [Physician] - (Nose fracture)
[2023-10-15] MEDS: Acetaminophen 325 MG TABLET 975 MG PO (17:32)
[2023-10-15 17:35] VITALS: BP 131/59; PULSE 59; RESP 18; TEMP 36.7; O2SAT 98
[2023-10-15] MEDS: Diphth,Pertus(ACell),Tet Adult 0.5 ML SYRINGE IM (19:28)
[2023-10-15 19:36] VITALS: BP 118/68; PULSE 70; RESP 16; O2SAT 98
== END 2023-10-15 19:45 | disposition home or self-care (01) ==
PROVIDERS: Emergency Provider Emergency Medicine Emergency Medical Services; PCP Internal Medicine
DX: S02.2XXA Fracture of nasal bones, initial encounter for closed fracture (principal); S63.502A Unspecified sprain of left wrist, initial encounter; S00.03XA Contusion of scalp, initial encounter; S00.511A Abrasion of lip, initial encounter; W01.198A Fall on same level from slipping, tripping and stumbling with subsequent striking against other object, initial encounter; I10 Essential (primary) hypertension; G89.4 Chronic pain syndrome; Z95.0 Presence of cardiac pacemaker; Y93.01 Activity, walking, marching and hiking; Y92.480 Sidewalk as the place of occurrence of the external cause; Y99.9 Unspecified external cause status; Z23 Encounter for immunization; Z98.84 Bariatric surgery status
CPT/HCPCS: 70450; 70486; 72125; 73110; 73130; 90471; 90715; 99284

== ENCOUNTER 2023-10-22 10:20 | Outpatient (AMB) | payer OTHER, SELFPAY ==
[2023-10-22 10:29] VITALS: BP 142/69; PULSE 102; RESP 20; O2SAT 97; BMI 46.7
--- NOTE | 2023-10-22 10:29 | MHC.OFFVIS ---
Intake Vital Signs 10/22/23 10:29 Height 5 ft 2 in Weight 255 lb 6 oz BMI 46.7 BP 142/69 H Blood Pressure Location Lt brachial Position Sitting Respiration 20 Pulse 102 H Pulse Source Pulse Oximeter Pulse Oximetry (%) 97 Oxygen Delivery Method Room Air Intake Visit Reasons: Pill Count - LVM Allergies adhesive tape Allergy (Intermediate, Verified 10/22/23 10:28) skin breakdown HPI HPI Comments History of Present Illness Details Urvashi presents to the office today for follow up chronic pain and chronic opioid therapy management. Patient is prescribed Tramadol 50mg po BID as needed. Patient arrived today with the expectation of having 12 pills, she presented 14 pills which were counted in the presence of two staff members and returned to the patient in the original prescription bottle. This demonstrates responsible attitude toward patient's opioid medications. Pain is reported today as 43/10 and last dose of pain medication was taken at 08:46 this morning. Pain is adequately managed on current opioid regimen. Patient denies side effects including somnolence, constipation, itching, dyspnea, rash, dizziness or weakness. Patient [place] [address] [place]. She tripped on the cement sidewalk and fell over landing on her face. She sustained fracture to her nose and had some wiring done for loose teeth. Also reports pain to the left wrist. She had full workup in the emergency room after the fall states that her wrist x-ray was negative but the pain persists. Prior visit with Dr Ratliff: Urvashi is a very pleasant 57 year old female who presents to the office for follow up chronic pain and chronic opioid therapy management. Last time she was in this office and she was prescribed tramadol 50 mg t.i.d.. She came today with excess of her pills. She brought to us 30 pills from November a and 20 pills from last month. She supposed to have no pills today in her possession. [facility] prescribed to much of the pills for her. We agreed that from now on I will be prescribing her to pills a day. We destroyed pills from November. That left her with 21 pills for this month and. I will restart her medication in 10 days from now which will be 05/09/2023. After we will establish that she is okay with his her medication prescriptions I will continue to see her once in 2 months for the appointments and pill counts. Patient denies any side effects including constipation, abdominal pain, somnolence, nausea, dizziness or falls. She previously had SCS trial with stimwave but did not tolerate, does not want to proceed with SCS at this time. Previously: She? went with me on transforaminal epidural spinal cord stimulator with stim wave technology.? After the procedure? she reported pain exacerbation in radicular distribution she reported numbness in left lower extremity.? During the procedure the insertion of the stimulating wires was quite difficult probably due to foraminal stenosis on those sites.? Her physical exam did not demonstrate any significant roots see below.? The CT scan which was performed to her in the emergency room did not demonstrate any hematoma or any peripheral nerve damage.? She went for EMG done by Dr. Whitfield.? Only peripheral neuropathy was found on EMG.? There were no acute radiculopathy secondary to needle penetration to the nerve roots.? The patient was treated with gabapentin and short course steroid therapy.? She reports that numbness is improving now.? She supposed to go for [email or web address] trial of spinal cord stimulator as we planned before...,.? [facility] Medical History Urinary incontinence in female Stress incontinence Lumbar back pain with radiculopathy affecting left lower extremity GERD (gastroesophageal reflux disease) HTN (hypertension) Complex regional pain syndrome i of left lower limb Chronic pain syndrome Cardiac pacemaker in situ Cardiomyopathy Second degree AV block Allergies Osteoarthritis of left knee Spondylosis of lumbosacral spine with radiculopathy Back pain Surgical History H/O gastric bypass Gastric bypass status for obesity Hx of cholecystectomy Hx of breast reduction, elective Hx of colonoscopy History of esophagogastroduodenoscopy (EGD) History of permanent cardiac pacemaker placement Family History Father Asthma Mother HTN (hypertension) Alzheimer disease Brother Cardiac pacemaker Sister Colon cancer Metastatic cancer Social History Housing: Apartment Alcohol intake: former Patient Tobacco Use Status: Former Tobacco user Quit Date: 7 yrs ago Cigarette Packs Per Day: 0.5 e-Cigarette/Vaping Use: Never Used service: No 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al status: unemployed and disabled 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 Cognitive needs: No Hearing needs: No Vision needs: Yes Review of Systems Const All systems reviewed & are unremarkable except as noted in HPI and below Physical Exam Vital Signs: Last Vital Signs Pulse 102 H 10/22/23 10:29 Resp 20 10/22/23 10:29 BP 142/69 H 10/22/23 10:29 Pulse Ox 97 10/22/23 10:29 Oxygen Delivery Method Room Air 10/22/23 10:29 BMI result Body Mass Index 46.7 General: awake, alert, oriented. Answers questions appropriately. Fully engaged in examination. Skin: warm, dry, intact without visible rashes or lesions. HEENT: Normocephalic. Hearing intact. Cardiac: External chest normal in appearance. Respiratory: No cough, audible wheezing or stridor. Abdomen: without gross distension. MS: No obvious swelling or deformities. Able to transition from sit to stand unassisted. Bruising and tenderness to left wrist. Full range of motion with pain increase. CMS intact. Neurological: Oriented to person, place, time and situation. Thought process intact. Ambulates with steady gait utilizing cane for assistance. Psychiatric: Appropriate mood and affect. Good judgment and insight. Const Other: Results Reviewed Results Reviewed: 11/05/2021 EXAMINATION: CT LUMBAR SPINE WITHOUT CONTRAST FINDINGS: The heights of the lumbar vertebrae are well-maintained. Subtle grade 1 anterolisthesis of L4 over L5. Mild facet joint arthritic changes are noted at the lower lumbar spine. Posterior appendages are intact.? No evidence of any fracture present. No evidence of any paraspinal, soft tissue hematoma present. The visualized retroperitoneum grossly appears unremarkable. Significant motion artifacts are present. IMPRESSION: No CT evidence of any compression fracture or paraspinal hematoma. Mild grade 1 anterolisthesis of L4 over L5 and facet joint arthritic changes at lower lumbar spine. Assessment & Plan Assessment & Plan (1) Osteoarthritis of left hip: Code(s): M16.12 - Unilateral primary osteoarthritis, left hip (2) Spondylosis of lumbosacral spine with radiculopathy: Code(s): M47.27 - Other spondylosis with radiculopathy, lumbosacral region (3) Chronic pain syndrome: Code(s): G89.4 - Chronic pain syndrome (4) Complex regional pain syndrome i of left lower limb: Code(s): G90.522 - Complex regional pain syndrome I of left lower limb Plan [employer] was reviewed and without concerns. No obvious signs of diversion, abuse or misuse of the opioid medications. Refill sent at last visit for Tramadol 50mg po BID prn with 1 refill, no prescription needed today. Patient to follow-up in the office in 1 month, sooner if needed. At next visit patient will be advanced to every 2 month visits. All questions and concerns have been answered and patient agrees with the plan. Stimwave trial L2-L3 L3-L4 done previously but patient reported increased numbness to lateral left thigh. Post procedure CT and EMG were completed which did not demonstrate evidence of acute pathology or radiculopathy. EMG did show evidence of peripheral neuropathy. Due to the side effects, neuropathy and interaction with her pacemaker she does not want to proceed with SCS at this time. Coding Level of Care Code Est Pt Level 3 (89999) Diagnoses Osteoarthritis of left hip M16.12 Spondylosis of lumbosacral spine with radiculopathy M47.27 Chronic pain syndrome G89.4 Complex regional pain syndrome i of left lower limb G90.522
== END 2023-10-22 10:44 | disposition home or self-care (01) ==
PROVIDERS: PCP Internal Medicine; Visit Provider Registered Nurse Emergency
DX: G89.4 Chronic pain syndrome (principal); M16.12 Unilateral primary osteoarthritis, left hip; M47.27 Other spondylosis with radiculopathy, lumbosacral region; G90.522 Complex regional pain syndrome I of left lower limb
CPT/HCPCS: 99213

== ENCOUNTER → 2023-10-22 10:20 | Outpatient (BNVA) | payer OTHER, SELFPAY | PROVIDERS: PCP Internal Medicine; Visit Provider Registered Nurse Emergency | DX: Z51.81 Encounter for therapeutic drug level monitoring (principal); M16.12 Unilateral primary osteoarthritis, left hip; M47.27 Other spondylosis with radiculopathy, lumbosacral region; G90.522 Complex regional pain syndrome I of left lower limb; G89.4 Chronic pain syndrome | CPT/HCPCS: 99212 ==

== ENCOUNTER 2023-10-29 12:27 | Outpatient (AMB) | payer OTHER, SELFPAY ==
[2023-10-29 12:34] VITALS: BMI 46.6
--- NOTE | 2023-10-29 12:34 | MHC.OFFVIS ---
Intake Vital Signs 10/29/23 12:34 Height 5 ft 2 in Weight 255 lb BMI 46.6 Intake Visit Reasons: ov- Numbness and tingling in both hands Intake Note: Urvashi 58 yr old female presents today for her follow up visit for bilateral hand numbness and tingling. EMG done. Also patient is S/P right ring finger trigger injection from 03/07/[address] Shelley. States injection help temporarily. States she is open to discuss surgery however she is unsure if she should proceed with surgery. Allergies adhesive tape Allergy (Intermediate, Verified 10/29/23 12:41) skin breakdown HPI ov- Numbness and tingling in both hands HPI Details Urvashi is a 58 year old right hand dominant Frisian speaking woman who returns to discuss her right ring trigger finger She was last seen on 03/07/23 and received a right ring trigger finger injection, with some relief, but her triggering has returned. She says her finger is very painful when it locks, and she sometimes uses a stick to keep her finger straight so it doesnt trigger. In regards asked about her sensation, she says she feels some swelling at the tips of her fingers, but denies any numbness & tingling She says she retains water and takes medication for this. She thinks this swelling sensation is related. She has a hx of CPS affecting primarily her left leg, as well as amnesia. She ambulates with a walker. [facility] Medical History Urinary incontinence in female Stress incontinence Lumbar back pain with radiculopathy affecting left lower extremity GERD (gastroesophageal reflux disease) HTN (hypertension) Complex regional pain syndrome i of left lower limb Chronic pain syndrome Cardiac pacemaker in situ Cardiomyopathy Second degree AV block Allergies Osteoarthritis of left knee Spondylosis of lumbosacral spine with radiculopathy Back pain Surgical History (Reviewed 10/29/23 @ 12:42 by Bonita Henry [facility]) H/O gastric bypass Gastric bypass status for obesity Hx of cholecystectomy Hx of breast reduction, elective Hx of colonoscopy History of esophagogastroduodenoscopy (EGD) History of permanent cardiac pacemaker placement Family History Father Asthma Mother HTN (hypertension) Alzheimer disease Brother Cardiac pacemaker Sister Colon cancer Metastatic cancer Social History Housing: Apartment Alcohol intake: former Patient Tobacco Use Status: Former Tobacco user Quit Date: 7 yrs ago Cigarette Packs Per Day: 0.5 e-Cigarette/Vaping Use: Never Used service: No 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al status: unemployed and disabled 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 Cognitive needs: No Hearing needs: No Vision needs: Yes Review of Systems Const All systems reviewed & are unremarkable except as noted in HPI and below Physical Exam Vital Signs: BMI result Body Mass Index 46.6 Const General: no acute distress and alert Orientation/consciousness: patient oriented x3 Neuro General: patient oriented x3 Extrem Other: Evaluation of Upper Extremity: The patient is alert, oriented, and in no acute distress Neuro: Median, Ulnar, Radial nerves motor and sensory intact No intrinsic or thenar wasting Vascular: Cap refill brisk ROM: She can make a fist and extend all her digits Visible and palpable locking & catching of the ring finger Tender over the a1 wan of the ring finger Nerve Conduction Study: Bilateral study ordered, only right-side tested, no explanation given Normal NCS concerning the right upper limb Mild motor axonal loss in the medial nerve of questionable significance Dr. Barton 04/23/23 Psych Appearance: grossly normal Affect: normal affect Attitude: cooperative Assessment & Plan Assessment & Plan (1) Trigger finger, right ring finger: Code(s): M65.341 - Trigger finger, right ring finger (2) Numbness and tingling in both hands: Code(s): R20.0 - Anesthesia of skin; R20.2 - Paresthesia of skin Plan Assessment and plan: 1. Right ring finger trigger finger Date of Injection: 03/07/23 I educated her about this condition The injection was helpful for a few months but her triggering has returned and it very painful I discussed operative and non-operative treatment options The patient would like to proceed with surgery The risks and benefits of operative treatment were discussed with the patient and the patient wishes to proceed with surgery. These risks include, but are not limited to risk of damage to blood vessels, nerves, tendons, infection, recurrence, incomplete relief of preoperative symptoms, persistent pain, possible need for further surgery and the risks associated with regional blocks and anesthesia. The plan is to take the patient to the operating room sometime in the next few weeks for the following procedures: 1. Right ring trigger finger release, under local All of the preoperative paperwork including the consent was reviewed today. All the patient's questions were answered. The patient understands that they will be contacted by our interlocking and signal mechanic soon to schedule this procedure She denies Diabetes, blood thinners, asthma, heart, lung, kidney issues She says she has a pacemaker implanted 2. Numbness and tingling in both hands, No complaints today She says this feels more like swelling in her fingertips as opposed to numbness NCS from 05/01/23 was unremarkable, though only the right side was tested If she develops new numbness that occurs daily she will follow up to discuss a new NCS Scribed for Addie Shelley MD by Leif Conner, medical corps officer, on 10/29/23 at 1:20 PM, EST. Coding Level of Care Code Est Pt Level 4 (70888) Diagnoses Trigger finger, right ring finger M65.341 Numbness and tingling in both hands R20.0; R20.2
== END 2023-10-29 13:36 | disposition home or self-care (01) ==
PROVIDERS: PCP Internal Medicine; Visit Provider Orthopaedic Surgery
DX: M65.341 Trigger finger, right ring finger (principal); R20.0 Anesthesia of skin; R20.2 Paresthesia of skin
CPT/HCPCS: 99214

== ENCOUNTER → 2023-10-29 12:27 | Outpatient (BNVA) | payer OTHER, SELFPAY | PROVIDERS: PCP Internal Medicine; Visit Provider Orthopaedic Surgery | DX: M65.341 Trigger finger, right ring finger (principal); R20.0 Anesthesia of skin; R20.2 Paresthesia of skin | CPT/HCPCS: 99212 ==

== ENCOUNTER 2023-11-11 08:47 | Inpatient (IN) | payer OTHER, SELFPAY ==
[2023-11-11] VITALS (8 sets, daily range): BP systolic 108–136; BP diastolic 44–78; PULSE 77–109; RESP 12–21; TEMP 36.4–37.1; O2SAT 91–98; BMI 43.4
--- NOTE | ~2023-11-11 | CT_ITS ---
EXAMINATION: CT ABDOMEN AND PELVIS WITH CONTRAST CLINICAL INFORMATION: Periumbilical pain. History of gastric bypass surgery. COMPARISON: Renal/retroperitoneal ultrasound from 06/12/2023. TECHNIQUE: Multidetector volumetric images were obtained from the superior aspect of the liver through the pubic symphysis following administration 85 mL of Omnipaque 350 intravenous contrast. Sagittal and coronal reformatted images were obtained on the technologist's workstation. Enteric contrast was administered. This CT examination was performed using dose optimization techniques as appropriate, variously including the following: *Automated exposure control *Adjustment of mA and/or kV according to patient size (this includes techniques or standardized protocols for targeted exams where dose is matched to indication/reason for exam; i.e. extremities or head) *Use of iterative reconstruction technique DLP: 993 mGy-cm FINDINGS: LUNG BASES: Scattered linear opacities of mild atelectasis in lower lobes. There is streak artifact from cardiac leads. No pericardial or pleural effusion. HEPATOBILIARY: The liver has normal size, shape, and attenuation. Gallbladder is surgically absent. No dilated bile ducts. PANCREAS: No edema, pancreatic ductal dilatation or mass. SPLEEN: Normal. ADRENAL GLANDS: Normal. KIDNEYS AND URETERS: The kidneys enhance symmetrically and have normal size and cortical thickness. No perinephric fluid collection, urolithiasis or hydroureteronephrosis. BLADDER: Normal. No calculi or wall thickening. BOWEL AND PERITONEUM: Status post Michael-en-Y gastric bypass surgery with intact gastrojejunal anastomosis. There is fluid and apparent diluted contrast material in the lumen of the excluded portion the stomach. There is no overtly visible gastrogastric fistula. Therefore, there might be some reflux of contrast into the excluded portion of the stomach. The distal pancreaticobiliary limb is mildly distended with contrast. There is no evidence of obstruction at the jejunojejunal anastomosis. The small bowel is dilated and has air-fluid levels. The point of transition is at the site of the periumbilical hernia. The distal small bowel is decompressed. No pneumatosis intestinalis or pneumoperitoneum. Small amount of free fluid is present within the abdomen, including the perisplenic region of the upper abdomen and within the pelvis. The appendix is normal. ABDOMINAL WALL: The hernia sac in the periumbilical region contains small amount of ascitic fluid and fat. A loop of small bowel is protruding into the area of the hernia neck but the bowel is not occupying the hernia sac. VASCULATURE: Mild atherosclerosis of the abdominal aorta without aneurysm. LYMPH NODES: No pathologic sized lymph nodes in the abdomen or pelvis. No inguinal lymphadenopathy. PELVIC VISCERA: No uterine or adnexal mass. MUSCULOSKELETAL: Multilevel degenerative arthropathy of the visualized spine. There is severe facet osteoarthritis and grade 1 anterolisthesis at L4-L5. CT/CT abdomen pelvis w IV con IMPRESSION: * Small bowel obstruction is present. The small bowel obstruction is associated with the periumbilical hernia. This represents the site of transition from dilated to nondilated small bowel. * Small amount free fluid is present within the abdomen and pelvis. No pneumoperitoneum.
--- NOTE | 2023-11-11 10:47 | ECG_ITS ---
Test Reason : cardiomyopathy Blood Pressure : / mmHG Vent. Rate : 079 BPM Atrial Rate : 079 BPM P-R Int : 206 ms QRS Dur : 152 ms QT Int : 408 ms P-R-T Axes : 039 -89 059 degrees QTc Int : 467 ms Sinus rhythm with Premature supraventricular complexes Right bundle branch block Left anterior fascicular block Bifascicular block Septal infarct , age undetermined No previous ECGs available Referred By: Johnnie Mauro Electronically Signed By:DOROTHEA OLSON MD
--- NOTE | 2023-11-11 10:55 | ED.ABDPAIN ---
HPI - Abdominal Pain General Chief Complaint: Abdominal Pain Stated Complaint: Abd pain 3 days Time Seen by Provider: 11/11/23 10:07 Source: patient Mode of arrival: ambulatory Limitations: language barrier History of Present Illness HPI narrative: 58-year-old female with a history of GERD, hypertension, depression, obstructive sleep apnea, complex regional pain syndrome, cardiomyopathy, pacemaker, gastric bypass 2016, ventral hernia repair 2017 who presents emergency department for evaluation of abdominal pain x4 days. She states that the pain came on gradually and got progressively worse. She states the pain is in the area of her hernia and she now has a hard lump in this area. She states full of gas. The patient had a small bowel movement today. Patient has had constant nausea and states she is vomiting foamy liquid. She states the pain is 10/10. She has not been able to eat or drink secondary to her discomfort. She denied fever, chills, chest pain, shortness of breath. Related Data Home Medications Medication Instructions Recorded Confirmed cetirizine 10 mg tablet 10 mg PO DAILY 09/20/21 09/15/23 ipratropium bromide 42 mcg (0.06 2 spray intranasal BID 09/20/21 09/15/23 %) nasal spray ketotifen fumarate 0.025 % (0.035 0.025 drp ophthalmic (eye) DAILY 09/20/21 09/15/23 %) eye drops melatonin 3 mg capsule 3 mg PO BEDTIME PRN Sleep 06/25/23 09/15/23 triamcinolone acetonide 0.1 % appl topical 10/22/23 topical cream Previous Rx's Medication Instructions Recorded [id number] 45 mg-folic 1 cap PO .QD #90 caps 06/22/21 acid 800 mcg-vit K 120 mcg capsule (Bariatric Multivitamins) walker #1 ea 01/01/22 salicylic acid 6 % topical cream 1 appl topical BEDTIME 7 days #454 06/26/22 grams lisinopril 2.5 mg tablet 2.5 mg PO DAILY #90 tabs 03/07/23 vitamin A 3,000 mcg (10,000 unit) 2 cap PO DAILY #180 caps 05/27/23 capsule cholecalciferol (vitamin D3) 50 2,000 unit PO DAILY 90 days #90 05/28/23 mcg (2,000 unit) capsule (Vitamin caps D3) furosemide 20 mg tablet 10 mg (1/2 x 20 mg) PO QAM #45 tabs 06/04/23 estradiol 10 mcg vaginal tablet 10 mcg vaginal 2XW #8 tabs 06/23/23 (Vagifem) mirabegron 50 mg tablet,extended 50 mg PO DAILY #90 tabs 06/23/23 release 24 hr (Myrbetriq) magnesium oxide 400 mg (241.3 mg 400 mg PO DAILY 30 days #30 tabs 07/16/23 magnesium) tablet metoprolol succinate 25 mg 25 mg PO DAILY #90 tabs 08/12/23 tablet,extended release 24 hr gabapentin 400 mg capsule 400 mg PO TID 30 days #90 caps 09/19/23 tramadol 50 mg tablet 50 mg PO BID PRN pain 30 days #60 09/24/23 tabs Allergies Allergy/AdvReac Type Severity Reaction Status Date / Time adhesive tape Allergy Intermediate skin Verified 10/29/23 12:41 breakdown Review of Systems Review of Systems Yes all other systems are reviewed and are negative [facility] Past Medical History [facility] Narrative: Social history: Patient is a former smoker but denies current tobacco use. She denies alcohol and drug use. Medical History Urinary incontinence in female Stress incontinence Lumbar back pain with radiculopathy affecting left lower extremity GERD (gastroesophageal reflux disease) HTN (hypertension) Complex regional pain syndrome i of left lower limb Chronic pain syndrome Cardiac pacemaker in situ Cardiomyopathy Second degree AV block Allergies Osteoarthritis of left knee Spondylosis of lumbosacral spine with radiculopathy Back pain Surgical History H/O gastric bypass Gastric bypass status for obesity Hx of cholecystectomy Hx of breast reduction, elective Hx of colonoscopy History of esophagogastroduodenoscopy (EGD) History of permanent cardiac pacemaker placement Family History Family History Father Asthma Mother HTN (hypertension) Alzheimer disease Brother Cardiac pacemaker Sister Colon cancer Metastatic cancer Social History Social History Housing: Apartment Alcohol intake: former Patient Tobacco Use Status: Former Tobacco user Quit Date: 7 yrs ago Cigarette Packs Per Day: 0.5 Smoked in Last 30 Days: No e-Cigarette/Vaping Use: Never Used Use of substances other than those prescribed or required for medical reasons: No Advance Directives: Yes Advance Directives Information Provided: Yes Advance Directives on File: No Patient : No service: No 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al status: unemployed and disabled 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 Cognitive needs: No Hearing needs: No Vision needs: Yes Physical Exam ED Vital Signs: Vital Signs - 24 hr 11/11/23 09:18 11/11/23 10:05 11/11/23 12:08 Temperature 97.6 F 98.5 F 98.7 F Pulse Rate 91 94 81 Respiratory Rate 18 16 14 Blood Pressure 123/78 136/76 126/64 Pulse Oximetry 94 98 91 L Oxygen Delivery Method Room Air Room Air Room Air 11/11/23 12:38 11/11/23 14:35 11/11/23 16:26 Temperature 97.9 F Pulse Rate 77 109 H 101 H Respiratory Rate 12 21 H 20 Blood Pressure 115/66 117/73 108/68 Pulse Oximetry 94 96 95 Oxygen Delivery Method Room Air Room Air Room Air BMI result Body Mass Index 43.4 Vital signs were unremarkable Exam: General: Awake, alert in moderate distress secondary to pain, elevated weight 111 kg, elevated BMI 43.4 kg per m2 Head: Normocephalic, atraumatic EENT: PERRL, Lids normal, sclera normal, conjunctiva normal, nose normal , ears normal, throat without erythema or exudates Neck: Supple, no adenopathy Lung: breath sounds symmetric, no wheezing, rales or rhonchi Chest: symmetric movement, nontender Heart: regular rate and rhythm, normal S1, S2 no murmurs or rubs Abdomen: soft, obese, patient has a umbilical hernia at the superior aspect of the umbilicus which is hard extremely tender to palpation, patient also has moderate diffuse tenderness with diminished bowel sounds, she has voluntary guarding but no involuntary guarding and no rebound Back: no vertebral tenderness, no CVAT Extremities: no deformities, moves all extremities symmetrically Neuro: Awake, alert, oriented, normal speech, cranial nerves intact, moves all extremities symmetrically Psych: Pleasant, cooperative Procedures Procedure Narrative Procedure Narrative: Incarcerated umbilical hernia reduction I did discuss the risks and benefits of the procedure with the patient and she would give me consent to proceed. Patient was medicated with Dilaudid 1 mg IV and ice was placed over the umbilical hernia for approximately 20 minutes. The patient was then placed in Trendelenburg and with steady pressure I was able to successfully reduce the umbilical hernia. Patient states she got immediate relief however exam still revealed diffuse abdominal tenderness with less tenderness with palpation over the area of the umbilical hernia. Patient tolerated the procedure well. Medical Decision Making Medical Decision Making [facility] Narrative: 58-year-old female with a history of GERD, hypertension, depression, obstructive sleep apnea, complex regional pain syndrome, cardiomyopathy, pacemaker, gastric bypass 2016, ventral hernia repair 2016 who presents emergency department for evaluation of abdominal pain x4 days. Pain came on gradually got progressively worse, the patient had nausea and vomiting with frothy emesis. She had 1 small bowel movement today my patient's pain was 10/10 on presentation. Initial vital signs were normal. Physical examination did reveal incarcerated umbilical hernia at the superior margin of the umbilicus, diffuse abdominal tenderness. The umbilical hernia was reduced by me and the patient did get significant relief of her pain but still had diffuse abdominal tenderness. Differential diagnosis: ?Includes but is not limited to incarcerated umbilical hernia, small-bowel obstruction, bowel ischemia, pancreatitis, anemia, electrolyte abnormality Course: 17:20 My interpretation patient's laboratory evaluation is as follows: CBC was normal. Glucose elevated 143. Total bilirubin elevated at 1.2 with direct being 0.5 and indirect being 0.7-unlikely to be secondary to biliary obstruction. Troponin was below detectable limits. Lipase was normal. Patient was treated with Dilaudid 1 mg IV x2 doses, Zofran 4 mg IV x2 doses patient also received normal saline IV x1 L and lactated Ringer's at 150 mL/hr Patient's repeat abdominal and tenderness palpation over the area of the umbilical hernia but much improved compared to the initial exam. At the end of my shift, patient's CT scan of the abdomen pelvis with oral contrast is pending, therefore the patient's care was turned over to my colleague, Dr. Elis Zelaya. Admission/Observation Consideration of admission/observation: Escalation of care including admission/observation considered Lab Data [facility] Lab Attestation statement: I reviewed the patient's lab results. 11/11/23 10:53 11/11/23 10:53 Labs: Lab Results 11/11/23 11/11/23 Range/Units 10:53 11:51 WBC 10.7 (4.8-10.8) X10*3/uL RBC 5.07 (4.20-5.50) X10*6/uL Hgb 13.8 (12.0-16.0) g/dl Hct 42.3 (37.0-47.0) % MCV 83.4 (80.0-98.0) fL MCH 27.2 (27.0-33.0) pg MCHC 32.6 (31.0-35.0) g/dl RDW 14.2 (11.0-16.0) % Plt Count 224 (160-400) X10*3/uL MPV 10.6 (9.4-12.3) fL Immature Gran % (Auto) 0.4 (0.0-0.4) % Neut % (Auto) 75.5 H (45-73) % Lymph % (Auto) 15.3 L (20-40) % Braxton % (Auto) 8.0 (2-11) % Eos % (Auto) 0.6 (0-4) % Baso % (Auto) 0.2 (0-2) % Lymph # (Auto) 1.6 (1.2-4.9) X10*3/uL Braxton # (Auto) 0.9 (0.1-1.2) X10*3/uL Eos # (Auto) 0.1 (0.0-0.4) X10*3/uL Baso # (Auto) 0.0 (0.0-0.2) X10*3/uL Abs Immat Gran (auto) 0.04 H (0.00-0.03) X10*3/uL Absolute Neuts (auto) 8.1 (2.0-8.3) x10*3/uL Absolute Nucleated RBC 0.000 (0.0-0.012) X10*3/uL Nucleated RBC % (auto) 0.0 (0.0-0.2) /100WBC Sodium 137 (135-145) mmol/L Potassium 4.2 (3.3-5.1) mmol/L Chloride 100 (96-108) mmol/L Carbon Dioxide 28 (22-29) mmol/L Anion Gap 13 (12-20) BUN 16 (9-16) mg/dL Creatinine 0.76 (0.5-1.4) mg/dL Estim Creat Clear Calc 95.5 Estimated GFR > 60 Random Glucose 143 H (60-115) mg/dL Calcium 10.3 H (8.4-10.2) mg/dL Magnesium 1.9 (1.6-2.6) mg/dL Total Bilirubin 1.2 H (0.0-1.0) mg/dL Direct Bilirubin 0.5 (0.0-0.5) mg/dL AST 18 (5-31) U/L ALT 17 (0-31) U/L Alkaline Phosphatase 74 (39-117) U/L Troponin I High Sens < 2.7 (<3.5-17.0) ng/L Total Protein 7.8 (6.5-8.0) g/dL Albumin 4.1 (3.5-5.0) g/dL Lipase 20 (8-78) U/L Influenza Type A (PCR) NEGATIVE (Negative) Influenza Type B (PCR) NEGATIVE (Negative) RSV RNA Qual (PCR) NEGATIVE (Negative) SARS-CoV-2 RNA (RT-PCR) NEGATIVE (Negative) Independent Interpretation I performed an independent interpretation of an: EKG Interpretation: My interpretation the patient's 12 EKG done at 1043 hours is as follows: Sinus rhythm with a rate of 79, prolonged RI interval 206 milliseconds, normal QRS duration normal QTC interval, right bundle-branch block, no ST segment elevation, no ST segment depression Independent Historian Clinical information obtained from an independent historian. History obtained from or confirmed by: Other (Son, Mike) External Record Review External record reviewed: Office record Medications Administered Discontinued Medications Generic Name Dose Route Start Last Admin Trade Name Freq PRN Reason Stop Dose Admin Diatrizoate Meglum/Diatrizoate Sod 30 ml 11/11/23 15:07 11/11/23 15:08 Diatrizoate Meglumine, Sodium 30 Ml Solution PO 11/11/23 15:08 30 ml ONCE ONE Administration Hydromorphone HCl 1 mg 11/11/23 11:11 11/11/23 11:44 Hydromorphone Hcl 1 Mg/Ml Syringe IVPUSH 11/11/23 11:12 1 mg ONCE STA Administration Protocol Hydromorphone HCl 1 mg 11/11/23 14:23 11/11/23 16:24 Hydromorphone Hcl 1 Mg/Ml Syringe IVPUSH 11/11/23 14:24 1 mg ONCE STA Administration Protocol Sodium Chloride 1,000 mls @ 999 mls/hr 11/11/23 11:07 11/11/23 16:22 Ns IV 11/11/23 12:07 Infused .Q1H1M STA Infusion Iohexol 85 ml 11/11/23 14:53 11/11/23 14:53 Iohexol 350 Mg/Ml 100 Ml Infus..Btl IV 11/11/23 14:54 85 ml ONCE ONE Administration Ondansetron HCl 4 mg 11/11/23 11:07 11/11/23 11:45 Ondansetron Hcl 4 Mg/2 Ml Vial IVPUSH 11/11/23 11:08 4 mg ONCE ONE Administration Ondansetron HCl 4 mg 11/11/23 14:23 11/11/23 16:25 Ondansetron Hcl 4 Mg/2 Ml Vial IVPUSH 11/11/23 14:24 4 mg ONCE ONE Administration Critical Care Time Critical Care Time Critical Care Time: Yes Total Critical Care Time: 35 Attestation: Critical Care: The patient was critically ill with a high probability of imminent or life threatening deterioration. I spent greater than 30 minutes of discontinuous time evaluating the patient,delivering critical care at the bedside, discussing and evaluating pertinent data with consultants. Critical care time does not include time spent performing separately billable procedures or teaching. Total time spent performing critical care was 35 minutes. Discharge Plan Discharge Clinical Impression: Umbilical hernia, incarcerated Abdominal pain Qualifiers: Abdominal location: generalized Qualified Code(s): R10.84 - Generalized abdominal pain Patient Disposition: Still a Patient Prescriptions: No Action Bariatric Multivitamins 45 mg iron- 800 mcg-120 mcg capsule 1 cap PO .QD Qty: 90 3RF (DME) walker Misc See Rx Instructions .Route Qty: 1 0RF Rx Instructions: As directed lisinopril 2.5 mg tablet 2.5 mg PO DAILY Qty: 90 3RF vitamin A 3,000 mcg (10,000 unit) capsule 2 cap PO DAILY Qty: 180 3RF cholecalciferol (vitamin D3) [Vitamin D3] 50 mcg (2,000 unit) capsule 2,000 unit PO DAILY 90 Days Qty: 90 3RF furosemide 20 mg tablet 10 mg PO QAM Qty: 45 1RF metoprolol succinate 25 mg tablet extended release 24 hr 25 mg PO DAILY Qty: 90 3RF gabapentin 400 mg capsule 400 mg PO TID 30 Days Qty: 90 8RF salicylic acid 6 % cream 1 appl topical BEDTIME 7 Days Qty: 454 0RF Rx Instructions: hydrate skin for >=5 mins before use; occlude area overnight; wash off in morning ipratropium bromide 42 mcg (0.06 %) spray,non-aerosol 2 spray intranasal BID cetirizine 10 mg tablet 10 mg PO DAILY ketotifen fumarate 0.025 % (0.035 %) drops 0.025 drp ophthalmic (eye) DAILY estradiol [Vagifem] 10 mcg tablet 10 mcg vaginal 2XW Qty: 8 5RF Rx Instructions: Use 2 times a week - apply at bedtime, Mon/Thurs Myrbetriq 50 mg tablet extended release 24 hr 50 mg PO DAILY Qty: 90 1RF magnesium oxide 400 mg (241.3 mg magnesium) tablet 400 mg PO DAILY 30 Days Qty: 30 6RF melatonin 3 mg capsule 3 mg PO BEDTIME PRN (Reason: Sleep) tramadol 50 mg tablet 50 mg PO BID PRN (Reason: pain) 30 Days Qty: 60 1RF triamcinolone acetonide 0.1 % cream topical
[2023-11-11 10:58] LABS: MANUAL DIFF FLAG NO
[2023-11-11 11:00] LABS: Basophils Percent Auto 0.2 % (0-2); Eosinophils Absolute Auto 0.1 X10*3/uL (0.0-0.4); Eosinophils Percent Auto 0.6 % (0-4); Hematocrit 42.3 % (37.0-47.0); Hemoglobin 13.8 g/dl (12.0-16.0); Imm Gran Abs Auto 0.04 X10*3/uL (0.00-0.03); Imm Gran Pct Auto 0.4 % (0.0-0.4); Lymphocytes Absolute Auto 1.6 X10*3/uL (1.2-4.9); Lymphocytes Percent Auto 15.3 % (20-40); Mean Corpuscular HGB Conc 32.6 g/dl (31.0-35.0); Mean Corpuscular Hemoglobin 27.2 pg (27.0-33.0); Mean Corpuscular Volume 83.4 fL (80.0-98.0); Mean Platelet Volume 10.6 fL (9.4-12.3); Monocytes Absolute Auto 0.9 X10*3/uL (0.1-1.2); Neutrophils Absolute Auto 8.1 x10*3/uL (2.0-8.3); Neutrophils Percent Auto 75.5 % (45-73); Platelet Count 224 X10*3/uL (160-400); Red Blood Count 5.07 X10*6/uL (4.20-5.50); Red Cell Distribution Width 14.2 % (11.0-16.0); White Blood Count 10.7 X10*3/uL (4.8-10.8)
[2023-11-11 11:18] LABS: Alanine Aminotransferase 17 U/L (0-31); Albumin Level 4.1 g/dL (3.5-5.0); Alkaline Phosphatase 74 U/L (39-117); Anion Gap 13 (12-20); Aspartate Amino Transferase 18 U/L (5-31); Bilirubin Direct 0.5 mg/dL (0.0-0.5); Bilirubin Total 1.2 mg/dL (0.0-1.0); Blood Urea Nitrogen 16 mg/dL (9-16); Calcium 10.3 mg/dL (8.4-10.2); Carbon Dioxide 28 mmol/L (22-29); Chloride 100 mmol/L (96-108); Creatinine Clr Calc Pharmacy 95.5; Estimated Glomerular Filt Rate > 60; Glucose Random 143 mg/dL (60-115); Lipase 20 U/L (8-78); Magnesium 1.9 mg/dL (1.6-2.6); Potassium 4.2 mmol/L (3.3-5.1); Sodium 137 mmol/L (135-145); Total Protein 7.8 g/dL (6.5-8.0)
[2023-11-11 11:21] LABS: Troponin-I High Sensitivity < 2.7 ng/L (<3.5-17.0)
[2023-11-11] MEDS: 0.9 % Sodium Chloride 1,000 ML 999 ML IV (11:43)
[2023-11-11] MEDS: HYDROmorphone HCl 1 MG/ML SYRINGE IVPUSH ×2 (11:44→16:24)
[2023-11-11] MEDS: ondansetron HCL 4 MG/2 ML VIAL IVPUSH ×2 (11:45→16:25)
[2023-11-11 12:36] LABS: Influenza A PCR NEGATIVE (Negative); Influenza B PCR NEGATIVE (Negative); Resp Syncy Virus RNA Qual PCR NEGATIVE (Negative); SARS COV2 PCR INHOUSE NEGATIVE (Negative)
[2023-11-11] MEDS: iohexoL 350 MG/ML 100 ML INFUS..BTL 85 ML IV (14:53)
[2023-11-11] MEDS: Diatrizoate Meglumine, Sodium 30 ML SOLUTION PO (15:08)
--- NOTE | 2023-11-11 16:38 | PC.NURSE ---
pt is sleeping but easily arousable, respirations even and unlabored, pt reports abd pain- mostly in the mid abd and lower abd with some nausea, reports hx of hernia repair in the past. abd soft and slightly tender. vs stable at this time
[2023-11-11] MEDS: Lactated Ringers 1,000 ML 150 ML IVCONT (18:10)
[2023-11-11 18:33] LABS: Alanine Aminotransferase 48 U/L (0-31); Albumin Level 3.6 g/dL (3.5-5.0); Alkaline Phosphatase 72 U/L (39-117); Anion Gap 14 (12-20); Aspartate Amino Transferase 75 U/L (5-31); Bilirubin Total 1.5 mg/dL (0.0-1.0); Blood Urea Nitrogen 13 mg/dL (9-16); Calcium 9.5 mg/dL (8.4-10.2); Carbon Dioxide 27 mmol/L (22-29); Chloride 101 mmol/L (96-108); Creatinine Clr Calc Pharmacy 111.6; Estimated Glomerular Filt Rate > 60; Glucose Random 124 mg/dL (60-115); Potassium 3.8 mmol/L (3.3-5.1); Sodium 138 mmol/L (135-145)
[2023-11-11 18:46] LABS: Appearance Urine Clear; Color Urine Yellow; Glucose Urine UA Negative (Negative); Leukocyte Esterase Urine Negative (Negative); Nitrite Urine Negative (Negative); PH 5.5 (5.0-9.0); Specific Gravity - Urine >= 1.030 (1.005-1.025); UMIC TRIGGER UACC YES; Urine Blood Trace (Negative); Urine Ketones Negative (Negative); Urine Protein Negative (Neg-Trace)
[2023-11-11 18:55] LABS: Bacteria Urine Trace (None Seen); Hyaline Casts Urine 0-2 /LPF (0-2); Squamous Epithelial Cell Urine 0-2 /HPF (0-2); WBC Urine 0-5 /HPF (0-5)
--- NOTE | 2023-11-11 22:07 | PM.HPGS ---
History of Present Illness History of Present Illness Date of Service: 11/11/23 Chief complaint: Abd pain 3 days Narrative: Urvashi Kirk is a 58 year old female who had gastric bypass surgery in 2017 over here and said that she has been having an issue with a little bump present just above her umbilical area. Over the last 4 days this bump became hard and painful and she said her abdomen swollen up. She had nausea and vomiting and came into the hospital here. Emergency room evaluated her and the physician there diagnosed her with incarcerated ventral hernia and was able to reduce this with sedation. Postprocedure however she continued to have tenderness although immediately she felt significantly better. She denies any fevers or chills. She does not feel nauseous now. As a result of still having this tenderness the CT scan was carried out which showed that there is a ventral hernia present and that there is small bowel which leads close to it but not into the hernia defect and sac. There is a little bit of fluid in the sac. The small bowel surrounding is not described as being thickened or with any pneumatosis etc.. Review of Systems Constitutional: Constitutional: Reports as per [facility] Past Medical History Medical History Urinary incontinence in female Stress incontinence Lumbar back pain with radiculopathy affecting left lower extremity GERD (gastroesophageal reflux disease) HTN (hypertension) Complex regional pain syndrome i of left lower limb Chronic pain syndrome Cardiac pacemaker in situ Cardiomyopathy Second degree AV block Allergies Osteoarthritis of left knee Spondylosis of lumbosacral spine with radiculopathy Back pain Family History Family History Father Asthma Mother HTN (hypertension) Alzheimer disease Brother Cardiac pacemaker Sister Colon cancer Metastatic cancer Surgical History Surgical History H/O gastric bypass Gastric bypass status for obesity Hx of cholecystectomy Hx of breast reduction, elective Hx of colonoscopy History of esophagogastroduodenoscopy (EGD) History of permanent cardiac pacemaker placement Social History Social History Housing: Apartment Alcohol intake: former Patient Tobacco Use Status: Former Tobacco user Quit Date: 7 yrs ago Cigarette Packs Per Day: 0.5 Smoked in Last 30 Days: No e-Cigarette/Vaping Use: Never Used Use of substances other than those prescribed or required for medical reasons: No Advance Directives: Yes Advance Directives Information Provided: Yes Advance Directives on File: No Patient : No service: No 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al status: unemployed and disabled 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 Cognitive needs: No Hearing needs: No Vision needs: Yes Meds Allergies Allergy/AdvReac Type Severity Reaction Status Date / Time adhesive tape Allergy Intermediate skin Verified 10/29/23 12:41 breakdown Active Medications: Current Medications Gabapentin (Gabapentin 400 Mg Capsule) 400 mg PO TID ONE Stop: 11/11/23 22:07 Lactated Ringer's (Lr) 1,000 mls @ 150 mls/hr IVCONT .Q6H40M [facility] Last Admin: 11/11/23 18:10 Dose: 150 mls/hr Sodium Chloride (Ns) 1,000 mls @ 100 mls/hr IVCONT .Q10H [facility] Ketorolac Tromethamine (Ketorolac Tromethamine 30 Mg/Ml Vial) 30 mg IVPUSH RQ6H PRN PRN Reason: Pain, Severe (Pain Scale 7-10) Lisinopril (Lisinopril 2.5 Mg Tablet) 2.5 mg PO RDAILY ONE; Protocol Stop: 11/11/23 22:07 Ondansetron HCl (Ondansetron Hcl 4 Mg/2 Ml Vial) 4 mg IVPUSH RQ6H PRN PRN Reason: Nausea and Vomiting Sodium Chloride (0.9 % Sodium Chloride Flush 3 Ml Syringe) 3 ml IVFLUSH QSHIFT [facility] Home Medications Medication Instructions Recorded Confirmed Last Taken Type cetirizine 10 mg tablet 10 mg PO DAILY 09/20/21 09/15/23 11/16/21 History ipratropium bromide 42 mcg (0.06 2 spray intranasal BID 09/20/21 09/15/23 Unknown History %) nasal spray estradiol 10 mcg vaginal tablet 10 mcg vaginal MOTH 11/11/23 Unknown History (Vagifem) triamcinolone acetonide 55 mcg 2 spray intranasal DAILY 11/11/23 11/11/23 11/10/23 History nasal spray aerosol zinc 50 mg tablet 25 mg PO DAILY 11/11/23 11/11/23 11/10/23 History Physical Exam Vital Signs: Vital Signs: Last Vital Signs Temp 98.5 F 11/11/23 21:12 Pulse 105 H 11/11/23 21:12 Resp 20 11/11/23 21:12 BP 110/44 L 11/11/23 21:12 Pulse Ox 92 11/11/23 21:12 O2 Del Method Room Air 11/11/23 21:12 BMI result Body Mass Index 43.4 Const: General: cooperative, healthy appearing, comfortable and no acute distress (Mild) Orientation/consciousness: oriented to person, oriented to place and oriented to time HEENT: Head: Yes normal to inspection Resp: Effort & Inspection: normal respiratory effort and able to speak in complete sentences Auscultation: clear to auscultation bilaterally Cardio: Rate: regular rate Rhythm: regular rhythm GI: Other: Her abdomen is soft obese and generally nontender. Just above the umbilical area there is some firmness and a bump in this area is tender. She does have some improving bowel sounds throughout her abdomen and other than palpating this area she seems relatively comfortable. Skin: General skin exam: no rashes or lesions noted Neuro: General: oriented to person, oriented to place and oriented to time Extrem: General: Yes normal to inspection and Yes full ROM Psych: Appearance: grossly normal Mental Status: mental status grossly normal Speech and movement: Normal speech and movement present Affect: normal affect Attitude: cooperative Thought process: Normal thought process present Thought content: Normal thought content present Insight: Good insight present (Psych) Judgement: Good judgement present (Psych) Results Results Labs: Short CBC 11/11/23 Range/Units 10:53 WBC 10.7 (4.8-10.8) X10*3/uL Hgb 13.8 (12.0-16.0) g/dl Hct 42.3 (37.0-47.0) % Plt Count 224 (160-400) X10*3/uL BMP 11/11/23 11/11/23 10:53 18:03 Sodium 137 138 Potassium 4.2 3.8 Chloride 100 101 Carbon Dioxide 28 27 BUN 16 13 Creatinine 0.76 0.65 Calcium 10.3 H 9.5 D Liver Function 11/11/23 11/11/23 Range/Units 10:53 18:03 Total Bilirubin 1.2 H 1.5 H (0.0-1.0) mg/dL Direct Bilirubin 0.5 (0.0-0.5) mg/dL AST 18 75 H (5-31) U/L ALT 17 48 H (0-31) U/L Alkaline Phosphatase 74 72 (39-117) U/L Albumin 4.1 3.6 (3.5-5.0) g/dL Urine 11/11/23 Range/Units 18:38 Urine Color Yellow Urine Appearance Clear Urine pH 5.5 (5.0-9.0) Ur Specific [place] >= 1.030 H (1.005-1.025) Urine Protein Negative (Neg-Trace) mg/dL Urine Glucose (UA) Negative (Negative) mg/dL Abdomen CT scan report/results: report reviewed and image reviewed CT scan - pelvis: report reviewed and image reviewed Additional studies: Ordering Physician: Johnnie Mauro MD Date of Service: 11/11/23 Procedure(s): CT abdomen pelvis w IV con Accession Number(s): [id number] cc: Skyler Whitfield MD; Johnnie Mauro MD~ EXAMINATION: CT ABDOMEN AND PELVIS WITH CONTRAST CLINICAL INFORMATION: Periumbilical pain. History of gastric bypass surgery. COMPARISON: Renal/retroperitoneal ultrasound from 06/12/2023. TECHNIQUE: Multidetector volumetric images were obtained from the superior aspect of the liver through the pubic symphysis following administration 85 mL of Omnipaque 350 intravenous contrast. Sagittal and coronal reformatted images were obtained on the technologist's workstation. Enteric contrast was administered. This CT examination was performed using dose optimization techniques as appropriate, variously including the following: *Automated exposure control *Adjustment of mA and/or kV according to patient size (this includes techniques or standardized protocols for targeted exams where dose is matched to indication/reason for exam; i.e. extremities or head) *Use of iterative reconstruction technique DLP: 993 mGy-cm FINDINGS: LUNG BASES: Scattered linear opacities of mild atelectasis in lower lobes. There is streak artifact from cardiac leads. No pericardial or pleural effusion. HEPATOBILIARY: The liver has normal size, shape, and attenuation. Gallbladder is surgically absent. No dilated bile ducts. PANCREAS: No edema, pancreatic ductal dilatation or mass. SPLEEN: Normal. ADRENAL GLANDS: Normal. KIDNEYS AND URETERS: The kidneys enhance symmetrically and have normal size and cortical thickness. No perinephric fluid collection, urolithiasis or hydroureteronephrosis. BLADDER: Normal. No calculi or wall thickening. BOWEL AND PERITONEUM: Status post Michael-en-Y gastric bypass surgery with intact gastrojejunal anastomosis. There is fluid and apparent diluted contrast material in the lumen of the excluded portion the stomach. There is no overtly visible gastrogastric fistula. Therefore, there might be some reflux of contrast into the excluded portion of the stomach. The distal pancreaticobiliary limb is mildly distended with contrast. There is no evidence of obstruction at the jejunojejunal anastomosis. The small bowel is dilated and has air-fluid levels. The point of transition is at the site of the periumbilical hernia. The distal small bowel is decompressed. No pneumatosis intestinalis or pneumoperitoneum. Small amount of free fluid is present within the abdomen, including the perisplenic region of the upper abdomen and within the pelvis. The appendix is normal. ABDOMINAL WALL: The hernia sac in the periumbilical region contains small amount of ascitic fluid and fat. A loop of small bowel is protruding into the area of the hernia neck but the bowel is not occupying the hernia sac. VASCULATURE: Mild atherosclerosis of the abdominal aorta without aneurysm. LYMPH NODES: No pathologic sized lymph nodes in the abdomen or pelvis. No inguinal lymphadenopathy. PELVIC VISCERA: No uterine or adnexal mass. MUSCULOSKELETAL: Multilevel degenerative arthropathy of the visualized spine. There is severe facet osteoarthritis and grade 1 anterolisthesis at L4-L5. CT/CT abdomen pelvis w IV con IMPRESSION: * Small bowel obstruction is present. The small bowel obstruction is associated with the periumbilical hernia. This represents the site of transition from dilated to nondilated small bowel. * Small amount free fluid is present within the abdomen and pelvis. No pneumoperitoneum. Assessment and Plan (1) Partial small bowel obstruction: Status: Acute (2) Umbilical hernia, incarcerated: Status: Acute Plan 58-year-old female status post gastric bypass surgery in 2017 here at [place] but who probably developed an incisional hernia at 1 of the sites just superior to the umbilicus and over the last couple of days had a loop of small bowel incarcerated and causing an obstruction. Here in the emergency room the ER doctor was able to successfully reduce this and the patient immediately felt significantly better but she continues to have some tenderness at the site. CT scan was carried out which shows some fat a little bit of ascitic fluid present in the hernia sac but no significant small bowel loops are associated and incarcerated. On exam there is still an area of firmness and I think that this may be consistent with some omentum and fat. The rest of her abdominal exam is improved and I hear better bowel sounds developing. Her white count was normal. The loops of bowel that were probably somewhat associated with this hernia sac that are now in the peritoneal cavity by CT scan do not look worrisome. Plan will be to admit clear liquids tonight until after midnight and NPO and re-evaluate in the morning. We will talk to bariatric surgery team and see if they want to do anything differently. At some point she does need this hernia repaired and I think laparoscopic repair would be a good way to deal with this abdominal wall defect. I do not think she has any significant issues in regards to the previous gastric bypass surgery. This was all discussed with the patient and she understands and agrees with the plan Quality Stroke Does the patient have a stroke diagnosis?: No VTE Prior VTE?: No VTE Risk Level:: Surgical - low VTE Device Contraindication: N/A - Device Ordered VTE Drug Contraindication: Treatment Not Indicated Procedures Date of Service Date of Service: 11/11/23
--- NOTE | 2023-11-11 22:17 | PHA.MEDREC ---
Pharmacy Consult ? Medication Reconciliation Pharmacy has completed the medication reconciliation. Patient had updated list of medications that matched claim history. Melina KeneanD
[2023-11-11] MEDS: Gabapentin 400 MG CAPSULE PO (23:13)
--- NOTE | 2023-11-11 23:58 | PC.NURSE ---
this rn confirmed with dr quiros which IVF is prefered as LR and NS are both ordered. per MD either are acceptable. this rn awaiting for MD to cancel order for NS IVF
[2023-11-12] VITALS (15 sets, daily range): BP systolic 114–152; BP diastolic 58–96; PULSE 71–111; RESP 10–20; TEMP 36–37.2; O2SAT 92–100
[2023-11-12] MEDS: Lactated Ringers 1,000 ML 150 ML IVCONT ×2 (01:41→08:50)
[2023-11-12 06:42] LABS: MANUAL DIFF FLAG NO
[2023-11-12 07:06] LABS: Basophils Percent Auto 0.5 % (0-2); Eosinophils Absolute Auto 0.3 X10*3/uL (0.0-0.4); Eosinophils Percent Auto 3.4 % (0-4); Hematocrit 36.3 % (37.0-47.0); Hemoglobin 11.6 g/dl (12.0-16.0); Imm Gran Abs Auto 0.02 X10*3/uL (0.00-0.03); Imm Gran Pct Auto 0.3 % (0.0-0.4); Lymphocytes Absolute Auto 2.1 X10*3/uL (1.2-4.9); Lymphocytes Percent Auto 26.6 % (20-40); Mean Corpuscular Hemoglobin 27.2 pg (27.0-33.0); Mean Platelet Volume 11.1 fL (9.4-12.3); Monocytes Absolute Auto 0.7 X10*3/uL (0.1-1.2); Monocytes Percent Auto 9.6 % (2-11); Neutrophils Absolute Auto 4.6 x10*3/uL (2.0-8.3); Neutrophils Percent Auto 59.6 % (45-73); Platelet Count 177 X10*3/uL (160-400); Red Blood Count 4.27 X10*6/uL (4.20-5.50); Red Cell Distribution Width 14.1 % (11.0-16.0); White Blood Count 7.7 X10*3/uL (4.8-10.8)
[2023-11-12 07:07] LABS: Alanine Aminotransferase 48 U/L (0-31); Albumin Level 3.3 g/dL (3.5-5.0); Alkaline Phosphatase 65 U/L (39-117); Anion Gap 12 (12-20); Aspartate Amino Transferase 44 U/L (5-31); Bilirubin Total 0.9 mg/dL (0.0-1.0); Blood Urea Nitrogen 10 mg/dL (9-16); Calcium 9.3 mg/dL (8.4-10.2); Carbon Dioxide 28 mmol/L (22-29); Chloride 105 mmol/L (96-108); Creatinine Clr Calc Pharmacy 105.1; Estimated Glomerular Filt Rate > 60; Glucose Random 105 mg/dL (60-115); Potassium 3.7 mmol/L (3.3-5.1); Sodium 141 mmol/L (135-145); Total Protein 6.2 g/dL (6.5-8.0)
--- NOTE | 2023-11-12 08:17 | P.PNGS_ITS ---
Subjective Subjective Date of Service: 11/12/23 Interval history: says she feels well still has mild pain on the umbilical hernia site passing flatus denies nausea/vomitting laparoscopic repair of umbilical hernia without mesh done by Dr Jesus along with bariatric procedure in 2017 Physical Exam 2 Vital Signs: Vital Signs: Last Vital Signs Temp 98 F 11/12/23 06:50 Pulse 71 11/12/23 06:50 Resp 17 11/12/23 06:50 BP 135/75 11/12/23 06:50 Pulse Ox 98 11/12/23 06:50 O2 Del Method BiPAP 11/12/23 06:50 BMI result Body Mass Index 43.4 Const: General: comfortable and no acute distress Resp: Effort & Inspection: normal respiratory effort Cardio: Rate: regular rate GI: Other: obese abdomen,vague tender small mass in umbilicus consistent with umbilical hernia with incarceration Palpation (GI): Soft to palpation, not firm and Tenderness to palpation present (GI) (mild tenderness around umbilicus) Objective Data Active Medications Gabapentin (Gabapentin 400 Mg Capsule) 400 mg PO TID [facility] Last Admin: 11/11/23 23:13 Dose: 400 mg Documented By: USMAN Lactated Ringer's (Lr) 1,000 mls @ 150 mls/hr IVCONT .Q6H40M [facility] Last Admin: 11/12/23 01:41 Dose: 150 mls/hr Documented By: CAROLYNN Ketorolac Tromethamine (Ketorolac Tromethamine 30 Mg/Ml Vial) 30 mg IVPUSH RQ6H PRN PRN Reason: Pain, Severe (Pain Scale 7-10) Lisinopril (Lisinopril 2.5 Mg Tablet) 2.5 mg PO DAILY [facility]; Protocol Ondansetron HCl (Ondansetron Hcl 4 Mg/2 Ml Vial) 4 mg IVPUSH RQ6H PRN PRN Reason: Nausea and Vomiting Sodium Chloride (0.9 % Sodium Chloride Flush 3 Ml Syringe) 3 ml IVFLUSH QSHIFT [facility] Last Admin: 11/12/23 06:56 Dose: Not Given Documented By: DANIELLE Non-Admin Reason: IV Running Labs 11/12/23 06:10 11/12/23 06:10 Labs: Laboratory Results - last 24 hr 11/11/23 11/11/23 11/11/23 10:53 11:51 18:03 MCV 83.4 MCH 27.2 MCHC 32.6 RDW 14.2 Plt Count 224 MPV 10.6 Immature Gran % (Auto) 0.4 Neut % (Auto) 75.5 H Lymph % (Auto) 15.3 L [place] % (Auto) 8.0 Eos % (Auto) 0.6 Baso % (Auto) 0.2 Lymph # (Auto) 1.6 [place] # (Auto) 0.9 Eos # (Auto) 0.1 Baso # (Auto) 0.0 Abs Immat Gran (auto) 0.04 H Absolute Neuts (auto) 8.1 Absolute Nucleated RBC 0.000 Nucleated RBC % (auto) 0.0 Anion Gap 13 14 Estim Creat Clear Calc 95.5 111.6 Estimated GFR > 60 > 60 Random Glucose 143 H 124 H Calcium 10.3 H 9.5 D Magnesium 1.9 Total Bilirubin 1.2 H 1.5 H Direct Bilirubin 0.5 AST 18 75 H ALT 17 48 H Alkaline Phosphatase 74 72 Troponin I High Sens < 2.7 Total Protein 7.8 7.0 Albumin 4.1 3.6 Lipase 20 Urine Color Urine Appearance Urine pH Ur Specific [place] Urine Protein Urine Glucose (UA) Urine Ketones Urine Blood Urine Nitrite Ur Leukocyte Esterase Urine RBC Urine WBC Ur Squamous Epith Cells Urine Bacteria Hyaline Casts Influenza Type A (PCR) NEGATIVE Influenza Type B (PCR) NEGATIVE RSV RNA Qual (PCR) NEGATIVE SARS-CoV-2 RNA (RT-PCR) NEGATIVE 11/11/23 11/12/23 18:38 06:10 MCV 85.0 MCH 27.2 MCHC 32.0 RDW 14.1 Plt Count 177 MPV 11.1 Immature Gran % (Auto) 0.3 Neut % (Auto) 59.6 Lymph % (Auto) 26.6 [place] % (Auto) 9.6 Eos % (Auto) 3.4 Baso % (Auto) 0.5 Lymph # (Auto) 2.1 [place] # (Auto) 0.7 Eos # (Auto) 0.3 Baso # (Auto) 0.0 Abs Immat Gran (auto) 0.02 Absolute Neuts (auto) 4.6 Absolute Nucleated RBC 0.000 Nucleated RBC % (auto) 0.0 Anion Gap 12 Estim Creat Clear Calc 105.1 Estimated GFR > 60 Random Glucose 105 Calcium 9.3 Magnesium Total Bilirubin 0.9 Direct Bilirubin AST 44 H ALT 48 H Alkaline Phosphatase 65 Troponin I High Sens Total Protein 6.2 L Albumin 3.3 L Lipase Urine Color Yellow Urine Appearance Clear Urine pH 5.5 Ur Specific [place] >= 1.030 H Urine Protein Negative Urine Glucose (UA) Negative Urine Ketones Negative Urine Blood Trace H Urine Nitrite Negative Ur Leukocyte Esterase Negative Urine RBC 3-5 H Urine WBC 0-5 Ur Squamous Epith Cells 0-2 Urine Bacteria Trace Hyaline Casts 0-2 Influenza Type A (PCR) Influenza Type B (PCR) RSV RNA Qual (PCR) SARS-CoV-2 RNA (RT-PCR) Procedures Date of Service Date of Service: 11/12/23 Progress Note: A&P Assessment and plan (1) Umbilical hernia, incarcerated: Status: Acute Assessment and Plan: was reduced in ED feels well still with mild tender induration clinically not obstructed currently The fascial defect on CT scan appears to be about 2.4 cm explained technique of repair of umbilical hernia, poss. mesh reviewed risks, incl but not limited to bleeding, infections, bowel injury, recurrence, delayed ischemia of small bowel segment, inhrent risks of anesthesia aware of benefits and alternatives she wants to proceed Time Spent With Patient Time: Total time managing care of this patient today ____ minutes. Quality Stroke Does the patient have a stroke diagnosis?: No VTE Prior VTE?: No VTE Risk Level:: Surgical - low VTE Device Contraindication: N/A - Device Ordered VTE Drug Contraindication: Treatment Not Indicated
[2023-11-12] MEDS: lisinopriL 2.5 MG TABLET PO (08:50)
[2023-11-12] MEDS: Gabapentin 400 MG CAPSULE PO ×3 (08:52→20:56)
--- NOTE | 2023-11-12 09:12 | MHC.CM.PN ---
Female 58 lives by herself. DX AB PAIN SBO She requires assist with ADLS. She uses a walker for unsteady gait. She wears a CPAP at home. DP home resumption of facility attendant services. [facility] or [facility] home. Patient declined the offer to document a HCP.
--- NOTE | 2023-11-12 14:18 | P.OP_ITS ---
Operative Note Operative Note Date of Service: 11/12/23 Narrative: Preop diagnosis: umbilical Hernia, with incarcerated omentum Postop diagnosis: The same Procedure: Reduction and repair of incarcerated umbilical hernia with Ventralex mesh Surgeon: Loc Andres MD The patient is a 58-year-old female with morbid obesity, an umbilical hernia. Her CAT scan shows fascial defect probably about 2 cm in diameter. She has tenderness on the area and clinically this seems to contain incarcerated fat. She understood the technique of the procedure as well as the risks, benefits, and alternatives. She was brought to the operating room and placed supine under general anesthesia via endotracheal tube. The abdomen was prepped and draped in the usual sterile fashion. A surgical time-out was done. The patient received cefazolin 2 g IV preoperatively The area of the planned line of incision was infiltrated with lidocaine 1%.I made an incision on the midline of the supraumbilical margin using a blade 15. . This carried down with electrocautery through the full-thickness of the skin and subcutaneous fat. The patient is morbidly obese. He had to go through thick amount of subcutaneous fat before we were able to reach the fascia. The patient had a pannus as well so the umbilicus was tunneling more superiorly. We had to carefully separate this from the rest of the hernia with careful dissection with Metzenbaum scissors and electrocautery. We had to do a lot of d issection until we are able to completely separate the umbilicus off of the hernia sac. We opened the hernia sac. I examined the contents and this consistent of ventral fat. There was no bowel loops noted. I proceeded to define the fascial edge. I and dissected the thickened hernia sac off of the fascial defect and this was sent as a specimen. This hernia sac was very edematous and thick. I was able to reduce the hernia contents which on examination contained on the fat. The fascial defect measured about 2 cm in diameter. There were no bowel loops trapped around the fascial edge. I applied a Kylee clamp on the superior aspect of the fascial defect for retraction. I positioned a small size Ventralex mesh underneath the fascial defect. It was flattened. I then secured the mesh with Prolene 2 sutures to the fascial edge using the 2 Prolene straps of the mesh. I trimmed the Prolene straps flush on the fascial Level. I closed the fascia with a [id number] Maxon 1 stitch over the mesh I copiously irrigated. We made sure that there was good hemostasis. We reapposed the thick subcutaneous layer with Polysorb 3-0 sutures. Skin closure was achieved with Polysorb 4-0 subcuticular running sutures. The incision was infiltrated with Marcaine 0.5% for postop analgesia. Dressings were applied. The procedure was completed. The patient tolerated procedure well. There were no immediate complications. Initial and final counts of sponges and instruments were correct. Estimated blood loss was about 40 cc. The patient was extubated without difficulty and transferred to recovery room with stable vital signs.
--- NOTE | 2023-11-12 15:58 | PM.EVENT ---
Event Note Date of Service: 11/13/23 Event Note: Seen postop Underwent repair of an incarcerated umbilical hernia earlier, with omental fat Seems to have adequate pain control Stable vital signs Dressings dry Pain control Possible discharge home tomorrow Time Spent With Patient Time: Total time managing care of this patient today ____ minutes.
[2023-11-12] MEDS: Lactated Ringers 1,000 ML 80 ML IVCONT (16:24)
[2023-11-13] MEDS: Lactated Ringers 1,000 ML 80 ML IVCONT (03:49)
[2023-11-13 04:00] VITALS: BP 132/60; PULSE 88; RESP 18; TEMP 36.3; O2SAT 93
[2023-11-13 07:32] VITALS: BP 124/59; PULSE 91; RESP 14; TEMP 37; O2SAT 92
--- NOTE | 2023-11-13 08:28 | P.PNGS_ITS ---
Subjective Subjective Date of Service: 11/18/23 Interval history: feels well denies significant pain tolerating diet passing flatus, had BM ambulating Physical Exam 2 Vital Signs: Vital Signs: Last Vital Signs Temp 98.6 F 11/13/23 07:32 Pulse 91 11/13/23 07:32 Resp 14 11/13/23 07:32 BP 124/59 L 11/13/23 07:32 Pulse Ox 92 11/13/23 07:32 O2 Del Method CPAP 11/13/23 07:32 O2 Flow Rate 2 11/12/23 15:02 BMI result Body Mass Index 43.4 Const: General: comfortable and no acute distress Resp: Effort & Inspection: normal respiratory effort GI: Other: incision clean and dry Palpation (GI): Soft to palpation, not firm and no guarding Objective Data Active Medications Gabapentin (Gabapentin 400 Mg Capsule) 400 mg PO TID [facility] Last Admin: 11/12/23 20:56 Dose: 400 mg Documented By: BILL Lactated Ringer's (Lr) 1,000 mls @ 80 mls/hr IVCONT .[id number] [facility] Last Admin: 11/13/23 03:49 Dose: 80 mls/hr Documented By: BILL Lisinopril (Lisinopril 2.5 Mg Tablet) 2.5 mg PO DAILY [facility]; Protocol Last Admin: 11/12/23 08:50 Dose: 2.5 mg Documented By: DANIELLE Morphine Sulfate (Morphine Sulfate 4 Mg/Ml Cartridge) 4 mg IVPUSH Q4H PRN; Protocol PRN Reason: Pain, Severe (Pain Scale 7-10) Ondansetron HCl (Ondansetron Hcl 4 Mg/2 Ml Vial) 4 mg IVPUSH RQ6H PRN PRN Reason: Nausea and Vomiting Oxycodone HCl (Oxycodone Hcl Immed Release 5 Mg Tablet) 5 mg PO Q4H PRN PRN Reason: Pain, Moderate(Pain Scale 4-6) Sodium Chloride (0.9 % Sodium Chloride Flush 3 Ml Syringe) 3 ml IVFLUSH QSHIFT [facility] Last Admin: 11/13/23 07:32 Dose: Not Given Documented By: RICARDO Non-Admin Reason: See Note Labs 11/12/23 06:10 11/12/23 06:10 Procedures Date of Service Date of Service: 11/18/23 Progress Note: A&P Assessment and plan (1) Umbilical hernia, incarcerated: Status: Acute Assessment and Plan: S/P repair with mesh doing well good GI function abd soft and benign has been ambulating says she is ready to be discharged dc instructions ok to dc home later today Time Spent With Patient Time: Total time managing care of this patient today ____ minutes. Quality Stroke Does the patient have a stroke diagnosis?: No VTE Prior VTE?: No VTE Risk Level:: Surgical - low VTE Device Contraindication: N/A - Device Ordered VTE Drug Contraindication: Treatment Not Indicated
[2023-11-13] MEDS: lisinopriL 2.5 MG TABLET PO (09:41)
[2023-11-13] MEDS: Gabapentin 400 MG CAPSULE PO (09:41)
[2023-11-13] MEDS: oxyCODONE HCl Immed Release 5 MG TABLET PO (09:46)
--- NOTE | 2023-11-13 10:21 | MHC.CM.PN ---
DP: PT HAS BEEN MEDICALLY CLEARED FOR DC HOME, NO SERVICES. PT DAUGHTER WILL TRANSPORT HOME.
--- NOTE | 2023-11-13 13:56 | HO.POSTANES ---
Post Anesthesia Evaluation Post Anesthesia Evaluation Date of Service: 11/13/23 Vital Signs: Vital Signs Temp Pulse Resp BP Pulse Ox O2 Del Method 11/13/23 07:32 98.6 F 91 14 124/59 L 92 CPAP 11/13/23 04:00 97.4 F 88 18 132/60 93 CPAP Anesthesia: General Mental Status: Awake Pain Control: Satisfactory Nausea/Vomiting: None Hydration: Adequate Anesthesia-Related Issues: No Anes. Related Issues
--- NOTE | 2023-11-14 12:33 | P.DS_ITS ---
DS: Providers Provider Date of Service: 11/13/23 Date of admission: 11/11/23 21:30 Date of discharge: 11/13/23 Primary care physician: Skyler Whitfield MD Attending physician on admission: Britney Paredes Attending physician on discharge: Loc Andres DS: Diagnosis Discharge Diagnosis (1) Umbilical hernia, incarcerated: Status: Acute DS: Summary Hospital Course Hospital Course: HPI AT ADMISSION: Urvashi Kirk is a 58 year old female who had gastric bypass surgery in 2017 over here and said that she has been having an issue with a little bump present just above her umbilical area. Over the last 4 days this bump became hard and painful and she said her abdomen swollen up. She had nausea and vomiting and came into the hospital here. Emergency room evaluated her and the physician there diagnosed her with incarcerated ventral hernia and was able to reduce this with sedation. Postprocedure however she continued to have tenderness although immediately she felt significantly better. She denies any fevers or chills. She does not feel nauseous now. As a result of still having this tenderness the CT scan was carried out which showed that there is a ventral hernia present and that there is small bowel which leads close to it but not into the hernia defect and sac. There is a little bit of fluid in the sac. The small bowel surrounding is not described as being thickened or with any pneumatosis etc. HOSPITAL COURSE: The patient was admitted to the surgical service for observation and further treatment of the umbilical hernia. She was started on clear liquids and was made NPO after midnight. She had some remaining mild tenderness and wanted to proceed with repair. She was added onto the OR schedule for that day. On 11/12/23, repair of incarcerated umbilical hernia with Ventralex mesh was performed by Dr. Andres without complication. The patient tolerated the procedure well. She had an uncomplicated recovery course. On POD #1, she felt well with only mild incisional pain. She was tolerating a solid diet. She was ambulating without difficulty. Her abdomen was benign with c/d/i dressings and appropriate post op tenderness. She felt ready for discharge. She was discharged to home on 11/14/23 in stable condition. Status at Discharge Functional status at discharge: independent ambulation Time Attestation Discharge Coordination Time (in mins): 25 Quality: Safe Use of Opioids Does Pt have an Active Cancer Diagnosis on the Problem List?: No Quality: Stroke Does the patient have a stroke diagnosis?: No Physical Exam Vital Signs: Vital Signs: Last Vital Signs Temp 98.6 F 11/13/23 07:32 Pulse 91 11/13/23 07:32 Resp 14 11/13/23 07:32 BP 124/59 L 11/13/23 07:32 Pulse Ox 92 11/13/23 07:32 O2 Del Method CPAP 11/13/23 07:32 O2 Flow Rate 2 11/12/23 15:02 BMI result Body Mass Index 43.4 Const: General: comfortable, no acute distress and alert Orientation/consciousness: patient oriented x3 Resp: Effort & Inspection: normal respiratory effort GI: Inspection: No distended and Yes incision (dressing c/d/i) Palpation (GI): Soft to palpation, Tenderness to palpation present (GI) (mild incisional) and no guarding Skin: General skin exam: no rashes or lesions noted Neuro: General: patient oriented x3 DS: Data Data Completed and Pending Pending studies at discharge: Pending at discharge 11/12/23 14:08 Surgical [PTH] Routine Discharge Plan Discharge Anticipated Discharge Date/Time: 11/13/23 07:13 Patient Disposition: Home, Self-Care Discharge Diagnosis: incarcerated incisional hernia Referrals: Skyler Whitfield MD [Primary Care Provider] - 1 Week Loc Andres MD [Physician] - 2 Weeks Discharge Medications: New oxycodone-acetaminophen [Percocet] 5-325 mg tablet 1 tab PO Q4-6H PRN (Reason: pain) Qty: 20 0RF Rx Instructions: Partial Fill upon patient request. Should not take any other narcotic when taking Percocet Continued Bariatric Multivitamins 45 mg iron- 800 mcg-120 mcg capsule 1 cap PO .QD Qty: 90 3RF (DME) walker Misc See Rx Instructions .Route Qty: 1 0RF Rx Instructions: As directed lisinopril 2.5 mg tablet 2.5 mg PO DAILY Qty: 90 3RF vitamin A 3,000 mcg (10,000 unit) capsule 2 cap PO DAILY Qty: 180 3RF cholecalciferol (vitamin D3) [Vitamin D3] 50 mcg (2,000 unit) capsule 2,000 unit PO DAILY 90 Days Qty: 90 3RF furosemide 20 mg tablet 10 mg PO QAM Qty: 45 1RF metoprolol succinate 25 mg tablet extended release 24 hr 25 mg PO DAILY Qty: 90 3RF gabapentin 400 mg capsule 400 mg PO TID 30 Days Qty: 90 8RF estradiol [Vagifem] 10 mcg tablet 10 mcg vaginal MOTH Rx Instructions: Use 2 times a week - apply at bedtime, Mon/Thurs triamcinolone acetonide 55 mcg Aerosol,[place] 2 spray INTRANASAL DAILY Rx Instructions: administer into each nostril zinc 50 mg Tablet 25 mg PO DAILY ipratropium bromide 42 mcg (0.06 %) spray,non-aerosol 2 spray intranasal DAILY PRN (Reason: Allergy Symptoms) Rx Instructions: use if going outside cetirizine 10 mg tablet 10 mg PO DAILY PRN (Reason: Allergy Symptoms) Myrbetriq 50 mg tablet extended release 24 hr 50 mg PO DAILY Qty: 90 1RF magnesium oxide 400 mg (241.3 mg magnesium) tablet 400 mg PO DAILY 30 Days Qty: 30 6RF tramadol 50 mg tablet 50 mg PO BID PRN (Reason: pain) 30 Days Qty: 60 1RF Discharge Orders: Discharge Order (Routine); Ordered 11/13/23 Ordered By: Franci Headley Diet: Advance to usual diet Activity on Discharge: No heavy lifting Stand Alone Forms: Patient Portal Discharge page Activity Restrictions/Additional Instructions: If the incision area is tender, you may apply an ice pack for short intervals (No more than 20 minutes on, followed by at least 20 minutes off). Do not apply heat. Do not use creams, lotions, or topical antibiotics. These can cause infe ction or allergic reaction. Ok to shower 24 hours after your surgery. Remove bandaids in 2 days and replace. You have steri strips (small white cloth strips) covering your incision- these will fall off ~1 week. Follow up in office with Dr. Andres in 2 weeks. ([phone]) No heavy lifting (>10-20lbs) or strenuous activity! Call Your Doctor If: -Your temperature exceeds 101.5? F -You experience excessive pain or swelling -You have an unexpected reaction to medication -You have excessive bleeding -You experience continued vomiting/nausea -Your incision begins to separate -Your incision shows signs of infection such as increased redness, swelling, excessive pain, drainage (light blood or clear fluid is normal) or heat Care Plan Goals: Return to baseline health and resume normal activities following recovery period. Health Concerns: incarcerated umbilical hernia Plan of Treatment: repair of incarcerated umbilical hernia with mesh Assessment: doing well post op Discharge Date/Time: 11/13/23 14:17
== END 2023-11-13 14:17 | disposition home or self-care (01) | DRG 228 ==
LOC: HO.ED 22:03 → HO.EDOVER 22:21 → HO.S3 23:28
PROVIDERS: Emergency Medicine Emergency Medical Services; Surgery; Admitting Provider Surgery; Emergency Provider Emergency Medicine; PCP Internal Medicine; Visit Provider Surgery
DX: K42.0 Umbilical hernia with obstruction, without gangrene (principal); Z20.822 Contact with and (suspected) exposure to COVID-19; Z98.84 Bariatric surgery status; Z23 Encounter for immunization; Z95.0 Presence of cardiac pacemaker; Z79.899 Other long term (current) drug therapy
CPT/HCPCS: 0241U; 36415; 74177; 80048; 80053; 80076; 81001; 83690; 83735; 84484; 85025; 88302; 90686; 93005; 94660; 99285; C1781; J0690; J1170; J2371; J2405; J2704; J2795; J3010; J7120; Q9967

== ENCOUNTER → 2023-11-11 10:28 | Outpatient (BNV) | payer OTHER, SELFPAY | PROVIDERS: Emergency Provider Emergency Medicine; PCP Internal Medicine; Visit Provider Surgery | DX: K56.600 Partial intestinal obstruction, unspecified as to cause (principal); K42.0 Umbilical hernia with obstruction, without gangrene | CPT/HCPCS: 49592; 99222; 99232; 99238; 99499 ==

== ENCOUNTER → 2023-11-11 10:47 | Outpatient (BNV) | payer OTHER, SELFPAY | PROVIDERS: Emergency Provider Emergency Medicine Emergency Medical Services; PCP Internal Medicine; Visit Provider Internal Medicine Cardiovascular Disease | DX: I42.9 Cardiomyopathy, unspecified (principal) | CPT/HCPCS: 93010 ==

== ENCOUNTER 2023-11-19 09:40 | Outpatient (AMB) | payer OTHER, SELFPAY ==
--- NOTE | 2023-11-19 10:13 | MHC.OFFVIS ---
Intake Vital Signs 11/19/23 10:14 Height 5 ft 1 in Weight 248 lb BMI 46.9 BP 130/66 Blood Pressure Location Lt brachial Position Sitting Respiration 18 Pulse 74 Pulse Source Pulse Oximeter Pulse Oximetry (%) 95 Oxygen Delivery Method Room Air Intake Visit Reasons: PILL COUNT/ Random UDS Allergies adhesive tape Allergy (Intermediate, Verified 10/29/23 12:41) skin breakdown HPI HPI Comments History of Present Illness Details Urvashi presents to the office today for follow up chronic pain and chronic opioid therapy management. Patient is prescribed Tramadol 50mg po BID as needed. Patient arrived today with the expectation of having 122 pills, she presented 24 pills which were counted in the presence of two staff members and returned to the patient in the original prescription bottle. This demonstrates responsible attitude toward patient's opioid medications. Pain is reported today as 2/10 and last dose of pain medication was taken at 06:20 this morning. Patient denies side effects including somnolence, constipation, itching, dyspnea, rash, dizziness or weakness. On arrival to the office patient reported to the medical science liaison that she was admitted to the hospital last week and underwent surgical repair of her hernia. On discharge she was given Percocet #20 Tablets. Patient admits taking 2 of these as directed by the surgeon on discharge, she was not aware that the office needed to be contacted and advised of this change in her medications. She thought that it would be okay to take these as they were prescribed to her after surgery. She brought the remaining pills to the office today for disposal. She was prescribed #20 tablets, #18 of them were counted by 2 staff members and disposed of per policy. Patient was scheduled for random UDS today, which she went to the lab in provided. Review of her records show that she was given Dilaudid in the emergency room, fentanyl, ketamine, propofol and rocuronium in the operating room and oxycodone on discharge. It is expected that these will be found in her UDS along with her prescribed tramadol. Prior visit with Dr Ratliff: Urvashi is a very pleasant 57 year old female who presents to the office for follow up chronic pain and chronic opioid therapy management. Last time she was in this office and she was prescribed tramadol 50 mg t.i.d.. She came today with excess of her pills. She brought to us 30 pills from November and 20 pills from last month. She supposed to have no pills today in her possession. [facility] prescribed to much of the pills for her. We agreed that from now on I will be prescribing her to pills a day. We destroyed pills from November. That left her with 21 pills for this month and. I will restart her medication in 10 days from now which will be 05/09/2023. After we will establish that she is okay with his her medication prescriptions I will continue to see her once in 2 months for the appointments and pill counts. Patient denies any side effects including constipation, abdominal pain, somnolence, nausea, dizziness or falls. She previously had SCS trial with stimwave but did not tolerate, does not want to proceed with SCS at this time. Previously: She? went with me on transforaminal epidural spinal cord stimulator with stim wave technology.? After the procedure? she reported pain exacerbation in radicular distribution she reported numbness in left lower extremity.? During the procedure the insertion of the stimulating wires was quite difficult probably due to foraminal stenosis on those sites.? Her physical exam did not demonstrate any significant roots see below.? The CT scan which was performed to her in the emergency room did not demonstrate any hematoma or any peripheral nerve damage.? She went for EMG done by Dr. Whitfield.? Only peripheral neuropathy was found on EMG.? There were no acute radiculopathy secondary to needle penetration to the nerve roots.? The patient was treated with gabapentin and short course steroid therapy.? She reports that numbness is improving now.? She supposed to go for [email or web address] trial of spinal cord stimulator as we planned before...,.? [facility] Medical History Urinary incontinence in female Stress incontinence Lumbar back pain with radiculopathy affecting left lower extremity GERD (gastroesophageal reflux disease) HTN (hypertension) Complex regional pain syndrome i of left lower limb Chronic pain syndrome Cardiac pacemaker in situ Cardiomyopathy Second degree AV block Allergies Osteoarthritis of left knee Spondylosis of lumbosacral spine with radiculopathy Back pain Surgical History H/O gastric bypass Gastric bypass status for obesity Hx of cholecystectomy Hx of breast reduction, elective Hx of colonoscopy History of esophagogastroduodenoscopy (EGD) History of permanent cardiac pacemaker placement Family History Father Asthma Mother HTN (hypertension) Alzheimer disease Brother Cardiac pacemaker Sister Colon cancer Metastatic cancer Social History Household Members: None Housing: Apartment Do you presently have visiting nurse or other home services: Yes (NURSE 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 MANAGER) Alcohol intake: former Comment: COUNTS CORRECT Patient Tobacco Use Status: Former Tobacco user Quit Date: 14 years (smoked x 40 years) Cigarette Packs Per Day: 0.5 e-Cigarette/Vaping Use: Never Used Advance Directives Date on File: 11/12/23 service: No 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al status: unemployed and disabled 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 Cognitive needs: No Hearing needs: No Vision needs: Yes Review of Systems Const All systems reviewed & are unremarkable except as noted in HPI and below Physical Exam Vital Signs: Last Vital Signs Pulse 74 11/19/23 10:14 Resp 18 11/19/23 10:14 BP 130/66 11/19/23 10:14 Pulse Ox 95 11/19/23 10:14 Oxygen Delivery Method Room Air 11/19/23 10:14 BMI result Body Mass Index 46.9 General: awake, alert, oriented. Answers questions appropriately. Fully engaged in examination. Skin: warm, dry, intact without visible rashes or lesions. HEENT: Normocephalic. Hearing intact. Cardiac: External chest normal in appearance. Respiratory: No cough, audible wheezing or stridor. Abdomen: without gross distension. Steri-Strips intact over umbilical surgical incision, dressing dry clean intact. Slight bruising noted. No redness, drainage. MS: No obvious swelling or deformities. Able to transition from sit to stand unassisted. Neurological: Oriented to person, place, time and situation. Thought process intact. Ambulates with steady gait utilizing cane for assistance. Psychiatric: Appropriate mood and affect. Good judgment and insight. Const Other: Results Reviewed Results Reviewed: 11/05/2021 EXAMINATION: CT LUMBAR SPINE WITHOUT CONTRAST FINDINGS: The heights of the lumbar vertebrae are well-maintained. Subtle grade 1 anterolisthesis of L4 over L5. Mild facet joint arthritic changes are noted at the lower lumbar spine. Posterior appendages are intact.? No evidence of any fracture present. No evidence of any paraspinal, soft tissue hematoma present. The visualized retroperitoneum grossly appears unremarkable. Significant motion artifacts are present. IMPRESSION: No CT evidence of any compression fracture or paraspinal hematoma. Mild grade 1 anterolisthesis of L4 over L5 and facet joint arthritic changes at lower lumbar spine. Assessment & Plan Assessment & Plan (1) Osteoarthritis of left hip: Code(s): M16.12 - Unilateral primary osteoarthritis, left hip (2) Spondylosis of lumbosacral spine with radiculopathy: Code(s): M47.27 - Other spondylosis with radiculopathy, lumbosacral region (3) Chronic pain syndrome: Code(s): G89.4 - Chronic pain syndrome (4) Complex regional pain syndrome i of left lower limb: Code(s): G90.522 - Complex regional pain syndrome I of left lower limb Plan Case reviewed with Dr. Ratliff, Fabrication Lead and supervising physician. [facility] was reviewed, notable for oxycodone/acetaminophen 5/325 filled 11/13/2023 for #20 Tablets. This was discussed in length with the patient today. #18 of these tablets were brought to the office today and disposed of. Rules of the opioid contract were again reviewed with the patient, she verbalized understanding. Aware that she can not fill any opioid prescriptions from outside providers without 1st contacting our office. She was advised that in the future this would result in a suspension from the program. After discussing with Dr. Ratliff, decision was made give the patient a warning today instead of suspension given her circumstances. Patient submitted to random UDS today. Review of her records show that she was given Dilaudid in the emergency room, fentanyl, ketamine, propofol and rocuronium in the operating room and oxycodone on discharge. It is expected that these may be found in her UDS along with her prescribed tramadol. Refill sent Tramadol 50mg po BID prn with 1 refill Patient to follow-up in the office in 2 months, sooner if needed. All questions and concerns have been answered and patient agrees with the plan. Stimwave trial L2-L3 L3-L4 done previously but patient reported increased numbness to lateral left thigh. Post procedure CT and EMG were completed which did not demonstrate evidence of acute pathology or radiculopathy. EMG did show evidence of peripheral neuropathy. Due to the side effects, neuropathy and interaction with her pacemaker she does not want to proceed with SCS at this time. Medications: Refilled tramadol 50 mg PO BID 30 days PRN 60 tabs 1RF pain Coding Level of Care Code Est Pt Level 4 (72542) Diagnoses Osteoarthritis of left hip M16.12 Spondylosis of lumbosacral spine with radiculopathy M47.27 Chronic pain syndrome G89.4 Complex regional pain syndrome i of left lower limb G90.522
[2023-11-19 10:14] VITALS: BP 130/66; PULSE 74; RESP 18; O2SAT 95; BMI 46.9
== END 2023-11-19 10:19 | disposition home or self-care (01) ==
PROVIDERS: PCP Internal Medicine; Visit Provider Registered Nurse Emergency
DX: M16.12 Unilateral primary osteoarthritis, left hip (principal); M47.27 Other spondylosis with radiculopathy, lumbosacral region; G89.4 Chronic pain syndrome; G90.522 Complex regional pain syndrome I of left lower limb
CPT/HCPCS: 99214

== ENCOUNTER → 2023-11-19 09:40 | Outpatient (BNVA) | payer OTHER, SELFPAY | PROVIDERS: PCP Internal Medicine; Visit Provider Registered Nurse Emergency | DX: Z51.81 Encounter for therapeutic drug level monitoring (principal); F11.20 Opioid dependence, uncomplicated; M16.12 Unilateral primary osteoarthritis, left hip; M47.27 Other spondylosis with radiculopathy, lumbosacral region; G90.522 Complex regional pain syndrome I of left lower limb; G89.4 Chronic pain syndrome | CPT/HCPCS: 99212 ==

== ENCOUNTER 2023-11-21 10:42 | Outpatient (AMB) | payer OTHER, SELFPAY ==
[2023-11-21 10:48] VITALS: BP 124/74; PULSE 95; O2SAT 98; BMI 47.2
--- NOTE | 2023-11-21 10:48 | MHC.PC.OV ---
Vital Signs 11/21/23 10:48 Height 5 ft 1 in Weight 250 lb BMI 47.2 BP 124/74 Blood Pressure Location Rt brachial Position Sitting Pulse 95 Pulse Source Pulse Oximeter Pulse Oximetry (%) 98 Oxygen Delivery Method Room Air Intake Visit Reasons: Annual PE Allergies adhesive tape Allergy (Intermediate, Verified 11/21/23 10:48) skin breakdown Medication List - Last Reconciled 11/21/23 by Skyler Whitfield MD cetirizine 10 mg PO DAILY PRN cholecalciferol (vitamin D3) (Vitamin D3) 2,000 units PO DAILY 90 days estradiol (Vagifem) 10 mcg vaginal MOTH furosemide 10 mg (1/2 x 20 mg) PO QAM gabapentin 400 mg PO TID 30 days ipratropium bromide 2 sprays intranasal DAILY PRN lisinopril 2.5 mg PO DAILY magnesium oxide 400 mg PO DAILY 30 days metoprolol succinate ER 25 mg PO DAILY mirabegron ER (Myrbetriq) 50 mg PO DAILY kdetnmdibiiu-fzl-qtvo-FA-vit K 45 mg iron- 800 mcg-120 mcg (Bariatric Multivitamins) 1 cap PO .QD tramadol 50 mg PO BID PRN 30 days triamcinolone acetonide 2 sprays intranasal DAILY vitamin A 2 caps PO DAILY walker As directed zinc 25 mg PO DAILY Tobacco use date assessed: 11/21/23 Dental Screening Dental Screen Date: 11/21/23 Did you have a dental visit in the last 12 months?: Yes Did you have a dental problem in the last 6 months where you did not have access to dental care?: No Was dental information given to patient?: Patient has dentist HPI Annual PE HPI Details Physical examination Patient had umbilical surgery by Dr. Andres Wound is healing well She is changing the dressing at home We changed her dressing today She will follow-up with Dr. Andres in few days Mammogram will be in March Patient is seeing OBGYN breast exams through them. Colonoscopy will be in 2026 Patient is morbidly obese need to lose weight LFTs are slightly elevated but improved from before Liver enzyme ordered again to be done in 2 weeks [facility] Medical History Urinary incontinence in female Stress incontinence Lumbar back pain with radiculopathy affecting left lower extremity GERD (gastroesophageal reflux disease) HTN (hypertension) Complex regional pain syndrome i of left lower limb Chronic pain syndrome Cardiac pacemaker in situ Cardiomyopathy Second degree AV block Allergies Osteoarthritis of left knee Spondylosis of lumbosacral spine with radiculopathy Back pain Surgical History H/O gastric bypass Gastric bypass status for obesity Hx of cholecystectomy Hx of breast reduction, elective Hx of colonoscopy History of esophagogastroduodenoscopy (EGD) History of permanent cardiac pacemaker placement Family History Father Asthma Mother HTN (hypertension) Alzheimer disease Brother Cardiac pacemaker Sister Colon cancer Metastatic cancer Social History Household Members: None Housing: Apartment Do you presently have 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 How often do you have a drink containing alcohol?: Never 3. How often do you have six or more drinks on one occasion?: Never Total Score: 0 Score Reviewed/Action Taken: Yes RITA-7 AMB Questionnaire RITA-7 Date RITA - 7 assessed: 04/10/22 Source: Developed by Drs. Omi Oneill, Barbara Mims, Rodrigo Flores and colleagues, with an educational kevyn from [employer]. Review of Systems Const Denies chills, Denies fever(s) and Denies headache(s) Eyes Denies blurry vision ENT Denies headache(s), Denies nasal discharge, Denies nasal obstruction, Denies odynophagia and Denies sinus pain Card Denies chest pain at rest and Denies chest pain with activity Resp Denies cough and Denies hemoptysis GI Denies diarrhea, Denies odynophagia, Denies vomiting and Denies hematemesis Reports as per HPI Musc Denies abnormal gait Skin/Breast Reports as per HPI Neuro Denies Neuro-related abnormal movements, Denies Abnormal speech present, Denies abnormal gait, Denies headache(s) and Denies Sensory deficit (Neuro) Psych Denies mood swings and Denies paranoia Endo Reports as per HPI Osmin/Lymph Reports as per HPI Aller/Immun Reports as per HPI Physical exam (Primary Care) Vital Signs: Last Vital Signs Pulse 95 11/21/23 10:48 BP 124/74 11/21/23 10:48 Pulse Ox 98 11/21/23 10:48 Oxygen Delivery Method Room Air 11/21/23 10:48 BMI result Body Mass Index 47.2 Tobacco/Smoking Status: Tobacco use Status Tobacco use date assessed 11/21/23 11/21/23 10:54 Patient Tobacco Use Status Former Tobacco user 11/21/23 10:52 e-Cigarette/Vaping Use Never Used 11/21/23 10:52 Thrive Assessment: Date of Thrive Assessment Date Thrive assessed 11/12/23 11/21/23 10:52 Const General: cooperative, comfortable and no acute distress Orientation/consciousness: patient oriented x3 HENMT Head: Yes normocephalic and Yes atraumatic Eyes General: appearance normal, both eyes and all related structures Pupils: Equal, round and reactive pupils present EOM: EOMs intact bilaterally Neck Neck: Yes supple and No lymphadenopathy Thyroid: Thyroid normal Lymphatic: no lymphadenopathy noted Resp Effort & Inspection: normal respiratory effort and able to speak in complete sentences Auscultation: clear to auscultation bilaterally Cardio Heart sounds: S1 normal heart sound present and S2 normal heart sound present GI Palpation (GI): Soft to palpation and nontender Auscultation: normal bowel sounds Abdomen image: 1. wound is healing well, no discharge no redness, dressing changed General: Yes no CVA tenderness Back/Spine/Pelvis Back: no CVA tenderness Skin General skin exam: elasticity normal and turgor normal Neuro General: patient oriented x3 and gait normal Cranial nerves: Yes Equal, round and reactive pupils present Speech: No Abnormal speech present Sensory Exam: No Sensory deficit (Neuro) Coordination: tandem gait normal and Romberg test negative Extrem General: Yes normal exam except as noted and No edema Assessment and Plan Assessment & Plan (1) Encounter for general adult medical examination with abnormal findings: Code(s): Z00.01 - Encounter for general adult medical examination with abnormal findings (2) Morbid obesity: Code(s): E66.01 - Morbid (severe) obesity due to excess calories (3) LFT elevation: Code(s): R79.89 - Other specified abnormal findings of blood chemistry (4) Status post umbilical hernia repair, follow-up exam: Code(s): Z09 - Encounter for follow-up examination after completed treatment for conditions other than malignant neoplasm (5) Spondylosis of lumbosacral spine with radiculopathy: Code(s): M47.27 - Other spondylosis with radiculopathy, lumbosacral region (6) Cardiomyopathy: Code(s): I42.9 - Cardiomyopathy, unspecified Qualifiers: Cardiomyopathy type: unspecified Qualified Code(s): I42.9 - Cardiomyopathy, unspecified (7) Cardiac pacemaker in situ: Code(s): Z95.0 - Presence of cardiac pacemaker (8) Chronic pain syndrome: Code(s): G89.4 - Chronic pain syndrome (9) Complex regional pain syndrome i of left lower limb: Code(s): G90.522 - Complex regional pain syndrome I of left lower limb (10) Varicose veins of left lower extremity with inflammation: Code(s): I83.12 - Varicose veins of left lower extremity with inflammation (11) Lumbar pain: Code(s): M54.5 - Low back pain (12) Primary osteoarthritis of knees, bilateral: Code(s): M17.0 - Bilateral primary osteoarthritis of knee (13) Osteoarthritis of left hip: Code(s): M16.12 - Unilateral primary osteoarthritis, left hip Qualifiers: Osteoarthritis type: primary Qualified Code(s): M16.12 - Unilateral primary osteoarthritis, left hip (14) Obstructive sleep apnea: Code(s): G47.33 - Obstructive sleep apnea (adult) (pediatric) (15) Major depression, recurrent: Code(s): F33.9 - Major depressive disorder, recurrent, unspecified Qualifiers: Active/Remission status: in full remission Qualified Code(s): F33.42 - Major depressive disorder, recurrent, in full remission (16) H/O gastric bypass: Code(s): Z98.84 - Bariatric surgery status (17) Stress incontinence: Code(s): N39.3 - Stress incontinence (female) (male) (18) Post-menopausal atrophic vaginitis: Code(s): N95.2 - Postmenopausal atrophic vaginitis (19) OAB (overactive bladder): Code(s): N32.81 - Overactive bladder Plan Physical examination Patient had umbilical surgery by Dr. Andres Wound is healing well She is changing the dressing at home We changed her dressing today She will follow-up with Dr. Andres in few days Mammogram will be in March Patient is seeing OBGYN breast exams through them. Colonoscopy will be in 2026 Patient is morbidly obese need to lose weight LFTs are slightly elevated but improved from before Liver enzyme ordered again to be done in 2 weeks Orders: Orders Liver Panel 2 Months R79.89 - Other specified abnormal findings of blood chemistry Coding Level of Care Code Est Pt Prev Care 40-64y(66397) Diagnoses Encounter for general adult medical examination with abnormal findings Z00.01 Morbid obesity E66.01 LFT elevation R79.89 Status post umbilical hernia repair, follow-up exam Z09 Spondylosis of lumbosacral spine with radiculopathy M47.27 Cardiomyopathy, unspecified type I42.9 Cardiomyopathy type: unspecified Cardiac pacemaker in situ Z95.0 Chronic pain syndrome G89.4 Complex regional pain syndrome i of left lower limb G90.522 Varicose veins of left lower extremity with inflammation I83.12 Lumbar pain M54.5 Primary osteoarthritis of knees, bilateral M17.0 Primary osteoarthritis of left hip M16.12 Osteoarthritis type: primary Obstructive sleep apnea G47.33 Recurrent major depressive disorder, in full remission F33.42 Active/Remission status: in full remission H/O gastric bypass Z98.84 Stress incontinence N39.3 Post-menopausal atrophic vaginitis N95.2 OAB (overactive bladder) N32.81
== END 2023-11-21 11:44 | disposition home or self-care (01) ==
PROVIDERS: PCP Internal Medicine; Visit Provider Internal Medicine
DX: Z00.00 Encounter for general adult medical examination without abnormal findings (principal); E66.01 Morbid (severe) obesity due to excess calories; Z68.42 Body mass index [BMI] 45.0-49.9, adult; I42.9 Cardiomyopathy, unspecified; F33.42 Major depressive disorder, recurrent, in full remission; R79.89 Other specified abnormal findings of blood chemistry; Z09 Encounter for follow-up examination after completed treatment for conditions other than malignant neoplasm; M47.27 Other spondylosis with radiculopathy, lumbosacral region; Z95.0 Presence of cardiac pacemaker; G89.4 Chronic pain syndrome; G90.522 Complex regional pain syndrome I of left lower limb; I83.12 Varicose veins of left lower extremity with inflammation
CPT/HCPCS: 99396

== ENCOUNTER 2023-11-27 15:27 | Outpatient (AMB) | payer OTHER, SELFPAY ==
[2023-11-27 15:31] VITALS: BP 130/60; PULSE 37; BMI 46.1
--- NOTE | 2023-11-27 15:31 | A.OFFVIS_ITS ---
Intake Vital Signs 11/27/23 15:31 Height 5 ft 1 in Weight 244 lb BMI 46.1 BP 130/60 Blood Pressure Location Rt brachial Position Sitting Pulse 37 L Intake Visit Reasons: umbilical hernia repair Intake Note: This patient presents for a post-op assessment status post Reduction and repair of incarcerated umbilical hernia with Ventralex mesh. Patient c/o; reports discomfort surgical site. Wardrobe Supervisor Required: Yes Wardrobe Supervisor Language: School Fundraising Director Name: Phyllis Information Interpreted: non-clinical & clinical Accompanied by: Self / Same As Patient Allergies adhesive tape Allergy (Intermediate, Verified 11/27/23 15:39) skin breakdown HPI umbilical hernia repair HPI Details 58-year-old female here for follow-up po stop. She had undergone repair of an incarcerated umbilical hernia last November 12, 2023. She tolerated the procedure well and was discharged on postop day 1. She says she is doing very well postoperatively. She denies any significant complaints. [facility] Medical History Urinary incontinence in female Stress incontinence Lumbar back pain with radiculopathy affecting left lower extremity GERD (gastroesophageal reflux disease) HTN (hypertension) Complex regional pain syndrome i of left lower limb Chronic pain syndrome Cardiac pacemaker in situ Cardiomyopathy Second degree AV block Allergies Osteoarthritis of left knee Spondylosis of lumbosacral spine with radiculopathy Back pain Surgical History History of hernia repair (~11/12/23) H/O gastric bypass Gastric bypass status for obesity Hx of cholecystectomy Hx of breast reduction, elective Hx of colonoscopy History of esophagogastroduodenoscopy (EGD) History of permanent cardiac pacemaker placement Family History Father Asthma Mother HTN (hypertension) Alzheimer disease Brother Cardiac pacemaker Sister Colon cancer Metastatic cancer Social History Household Members: None Housing: Apartment Do you presently have 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) Alcohol intake: former Comment: COUNTS CORRECT Patient Tobacco Use Status: Former Tobacco user Quit Date: 14 years (smoked x 40 years) Cigarette Packs Per Day: 0.5 e-Cigarette/Vaping Use: Never Used Advance Directives Date on File: 11/12/23 service: No 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al status: unemployed and disabled 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 Cognitive needs: No Hearing needs: No Vision needs: Yes Review of Systems Const Denies chills and Denies fever(s) Card Denies chest pain, Denies dyspnea and Denies dyspnea on exertion Resp Denies cough, Denies dyspnea and Denies dyspnea on exertion GI Denies hematochezia and Denies change in bowel habits Denies hematuria Musc Denies back pain and Denies limited range of motion Neuro Denies focal weakness and Denies convulsions Psych Denies depression and Denies mood swings Physical Exam Vital Signs: Last Vital Signs Pulse 37 L 11/27/23 15:31 BP 130/60 11/27/23 15:31 BMI result Body Mass Index 46.1 Const Other: Morbidly obese General: comfortable and no acute distress GI Other: Hernia repair site clean, well healed, repair intact with no recurrence Palpation (GI): Soft to palpation, not firm and nontender Assessment & Plan Assessment & Plan (1) Status post umbilical hernia repair, follow-up exam: Code(s): Z09 - Encounter for follow-up examination after completed treatment for conditions other than malignant neoplasm Plan: She is doing very well postoperatively. The repair site is well healed and is intact. I advised her to avoid lifting anything more than 20 lb for at least 1 month. I advised her on the benefits of weight loss. She can follow up on a p.r.n. basis. Coding Level of Care Code Global (95447) Diagnoses Status post umbilical hernia repair, follow-up exam Z09
== END 2023-11-27 16:03 | disposition home or self-care (01) ==
PROVIDERS: PCP Internal Medicine; Visit Provider Surgery
DX: Z09 Encounter for follow-up examination after completed treatment for conditions other than malignant neoplasm (principal)
CPT/HCPCS: 99212

== ENCOUNTER → 2023-11-27 15:27 | Outpatient (BNVA) | payer OTHER, SELFPAY | PROVIDERS: PCP Internal Medicine; Visit Provider Surgery | DX: Z09 Encounter for follow-up examination after completed treatment for conditions other than malignant neoplasm (principal); Z98.890 Other specified postprocedural states | CPT/HCPCS: 99212 ==

== ENCOUNTER 2023-12-10 03:37 | Emergency (ER) | payer OTHER, SELFPAY ==
--- NOTE | 2023-12-10 | ECG_ITS ---
Test Reason : ABD PAIN Blood Pressure : / mmHG Vent. Rate : 060 BPM Atrial Rate : 060 BPM P-R Int : 148 ms QRS Dur : 182 ms QT Int : 474 ms P-R-T Axes : -25 -15 252 degrees QTc Int : 474 ms AV dual-paced rhythm Abnormal ECG When compared with ECG of 11-NOV-2023 10:43, Electronic ventricular pacemaker has replaced Sinus rhythm Referred By: Generic ED Physician Electronically Signed By:DOROTHEA OLSON MD
--- NOTE | ~2023-12-10 | CT_ITS ---
EXAMINATION: CT ABDOMEN AND PELVIS WITH CONTRAST CLINICAL INFORMATION: Abdominal pain. Recent hernia repair. COMPARISON: 11/11/2023 TECHNIQUE: Multidetector volumetric images were obtained from the superior aspect of the liver through the pubic symphysis following administration 85 mL of Omnipaque 350 intravenous contrast. Sagittal and coronal reformatted images were obtained on the technologist's workstation. Oral contrast: No This CT examination was performed using dose optimization techniques as appropriate, variously including the following: *Automated exposure control *Adjustment of mA and/or kV according to patient size (this includes techniques or standardized protocols for targeted exams where dose is matched to indication/reason for exam; i.e. extremities or head) *Use of iterative reconstruction technique DLP: 1040 mGy-cm FINDINGS: LUNG BASES: Small hiatal hernia. LIVER, GALLBLADDER, AND BILIARY TREE: The liver is normal in size and contour. No focal hepatic lesion or biliary ductal dilatation is present. The gallbladder is surgically absent. PANCREAS: No ductal dilatation. SPLEEN: Not enlarged. ADRENAL GLANDS: No adrenal mass. KIDNEYS AND URETERS: The kidneys are symmetric in size and enhancement. No hydronephrosis or perinephric fluid collection. BLADDER: Relatively decompressed. GASTROINTESTINAL TRACT: Status post gastric bypass with intact gastrojejunal anastomosis. There is reported history of recent hernia repair. Thick-walled loops of small bowel in the pelvis. Small bowel loops in the pelvis appear thick walled and dilated up to 2.7 cm. No free intraperitoneal air. ABDOMINAL WALL: At the level of the umbilicus there is a residual focal outpouching of fluid and omental fat measuring 2.5 x 2.4 cm. LYMPH NODES: No bulky lymphadenopathy. VASCULAR: Normal caliber abdominal aorta. PELVIC VISCERA: Small free fluid in pelvis. OSSEOUS STRUCTURES: No destructive bone lesions. CT/CT abdomen pelvis w IV con IMPRESSION: At the level of the umbilicus there is a residual focal outpouching of fluid and omental fat measuring 2.5 x 2.4 cm. Advise correlation with surgical history. Thick-walled dilated loops of small bowel measuring up to 2.7 cm. This may represent developing small bowel obstruction. Small free fluid in pelvis. No free intraperitoneal air. Continued imaging surveillance is advised.
[2023-12-10 04:01] VITALS: BP 148/90; PULSE 70; O2SAT 100
[2023-12-10 04:11] VITALS: BP 132/66; PULSE 60; RESP 18; TEMP 36.5; O2SAT 98; BMI 42.5
[2023-12-10 04:28] LABS: MANUAL DIFF FLAG NO
[2023-12-10 04:29] LABS: Basophils Percent Auto 0.3 % (0-2); Eosinophils Percent Auto 0.3 % (0-4); Hematocrit 41.1 % (37.0-47.0); Hemoglobin 13.2 g/dl (12.0-16.0); Imm Gran Abs Auto 0.01 X10*3/uL (0.00-0.03); Imm Gran Pct Auto 0.1 % (0.0-0.4); Lymphocytes Absolute Auto 1.7 X10*3/uL (1.2-4.9); Lymphocytes Percent Auto 18.4 % (20-40); Mean Corpuscular HGB Conc 32.1 g/dl (31.0-35.0); Mean Corpuscular Hemoglobin 26.7 pg (27.0-33.0); Mean Platelet Volume 11.4 fL (9.4-12.3); Monocytes Absolute Auto 0.5 X10*3/uL (0.1-1.2); Monocytes Percent Auto 5.2 % (2-11); Neutrophils Absolute Auto 7.2 x10*3/uL (2.0-8.3); Neutrophils Percent Auto 75.7 % (45-73); Platelet Count 186 X10*3/uL (160-400); Red Blood Count 4.95 X10*6/uL (4.20-5.50); Red Cell Distribution Width 13.8 % (11.0-16.0); White Blood Count 9.5 X10*3/uL (4.8-10.8)
--- NOTE | 2023-12-10 04:32 | MHC.EDTECH ---
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
[2023-12-10 04:52] LABS: Alanine Aminotransferase 21 U/L (0-31); Albumin Level 4.3 g/dL (3.5-5.0); Alkaline Phosphatase 74 U/L (39-117); Anion Gap 16 (12-20); Aspartate Amino Transferase 23 U/L (5-31); Bilirubin Total 0.5 mg/dL (0.0-1.0); Blood Urea Nitrogen 21 mg/dL (9-16); Calcium 10.6 mg/dL (8.4-10.2); Carbon Dioxide 24 mmol/L (22-29); Chloride 104 mmol/L (96-108); Creatinine Clr Calc Pharmacy 86.4; Estimated Glomerular Filt Rate > 60; Glucose Random 180 mg/dL (60-115); Lipase 19 U/L (8-78); Potassium 4.2 mmol/L (3.3-5.1); Sodium 140 mmol/L (135-145); Total Protein 8.4 g/dL (6.5-8.0)
[2023-12-10 06:57] VITALS: BP 99/52; PULSE 76; RESP 16; TEMP 36.8; O2SAT 96
--- NOTE | 2023-12-10 07:05 | ED.ABDPAIN ---
HPI - Abdominal Pain General Chief Complaint: Abdominal Pain Stated Complaint: abdominal pain Time Seen by Provider: 12/10/23 07:04 Source: patient and RN notes reviewed Mode of arrival: ambulatory Limitations: no limitations History of Present Illness HPI narrative: This is a 58-year-old female with a past medical history of recent umbilical hernia with incarcerated omentum reduction repair on November 12, 2023, GERD, hypertension, depression, MARVEL, complex regional pain syndrome, cardiomyopathy, pacemaker, gastric bypass 2016, and ventral hernia repair 2016, who presents the emergency department with complaints of acute upper abdominal pain which started yesterday afternoon with associated nausea. Patient states that yesterday afternoon after bending over to warp picker a book she suddenly developed abdominal pain. She states that she had waxing and waning pain, cramping in nature that would last approximately 20 seconds and resolved on its own. She states that the pain was intermittent up until early this morning. She states that since her arrival in the emergency department her symptoms have improved and no longer has severe pain, describing her current abdominal pain as aching and a ?soreness?.She states that she has had nausea and associated vomiting. Reporting that she is vomited approximately 5-6 times in the course of the last 18 hours. No hematemesis. She also reports diarrhea, denies any bloody or black stool. She denies any fevers, chills, chest pain, shortness of breath. She endorses some suprapubic pressure since the surgery, denies dysuria or hematuria. States that she is scheduled to follow-up with her OBGYN regarding this. Of note, patient was diagnosed on 11/11/2023 with an incarcerated ventral hernia that was able to be reduced with sedation. CT scan was carried out which showed a ventral hernia present and a small bowel obstruction that was present. There is no pneumoperitoneum. On 11/12/2023, she had a umbilical hernia with incarcerated omentum reduction repair. MD elicited complaint: abdominal pain Onset (ago): hour(s) Pain Consistency: intermittent and now resolved Quality: aching Radiation: none Migration to: no migration Exacerbating factors: nothing Relieving factors: nothing Associated symptoms: denies other symptoms Related Data Home Medications ?Medication ?Instructions ?Recorded ?Confirmed cetirizine 10 mg tablet 10 mg PO DAILY PRN Allergy Symptoms 09/20/21 11/21/23 ipratropium bromide 42 mcg (0.06 2 spray intranasal DAILY PRN 09/20/21 11/11/23 %) nasal spray Allergy Symptoms estradiol 10 mcg vaginal tablet 10 mcg vaginal MOTH 11/11/23 11/21/23 (Vagifem) triamcinolone acetonide 55 mcg 2 spray intranasal DAILY 11/11/23 11/21/23 nasal spray aerosol zinc 50 mg tablet 25 mg PO DAILY 11/11/23 11/21/23 Previous Rx's ?Medication ?Instructions ?Recorded [id number] 45 mg-folic 1 cap PO .QD #90 caps 06/22/21 acid 800 mcg-vit K 120 mcg capsule (Bariatric Multivitamins) walker #1 ea 01/01/22 lisinopril 2.5 mg tablet 2.5 mg PO DAILY #90 tabs 03/07/23 vitamin A 3,000 mcg (10,000 unit) 2 cap PO DAILY #180 caps 05/27/23 capsule cholecalciferol (vitamin D3) 50 2,000 unit PO DAILY 90 days #90 05/28/23 mcg (2,000 unit) capsule (Vitamin caps D3) mirabegron 50 mg tablet,extended 50 mg PO DAILY #90 tabs 06/23/23 release 24 hr (Myrbetriq) magnesium oxide 400 mg (241.3 mg 400 mg PO DAILY 30 days #30 tabs 07/16/23 magnesium) tablet metoprolol succinate 25 mg 25 mg PO DAILY #90 tabs 08/12/23 tablet,extended release 24 hr gabapentin 400 mg capsule 400 mg PO TID 30 days #90 caps 09/19/23 tramadol 50 mg tablet 50 mg PO BID PRN pain 30 days #60 11/19/23 tabs furosemide 20 mg tablet 10 mg (1/2 x 20 mg) PO QAM #45 tabs 11/27/23 Allergies Allergy/AdvReac Type Severity Reaction Status Date / Time adhesive tape Allergy Intermediate skin Verified 12/10/23 04:13 breakdown Review of Systems Review of Systems Yes all other systems are reviewed and are negative Constitutional: Reports as per [facility] Past Medical History Attestation statement: The following information was validated with the patient. Medical History (Updated 12/10/23 @ 10:22 by LJ Bueno) Pain at surgical incision Urinary incontinence in female Stress incontinence Lumbar back pain with radiculopathy affecting left lower extremity GERD (gastroesophageal reflux disease) HTN (hypertension) Complex regional pain syndrome i of left lower limb Chronic pain syndrome Cardiac pacemaker in situ Cardiomyopathy Second degree AV block Allergies Osteoarthritis of left knee Spondylosis of lumbosacral spine with radiculopathy Back pain Surgical History History of hernia repair (~11/12/23) H/O gastric bypass Gastric bypass status for obesity Hx of cholecystectomy Hx of breast reduction, elective Hx of colonoscopy History of esophagogastroduodenoscopy (EGD) History of permanent cardiac pacemaker placement Family History Family History Father Asthma Mother HTN (hypertension) Alzheimer disease Brother Cardiac pacemaker Sister Colon cancer Metastatic cancer Social History Social History Household Members: None Housing: Apartment Do you presently have 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) Alcohol intake: former Comment: COUNTS CORRECT Patient Tobacco Use Status: Former Tobacco user Quit Date: 14 years (smoked x 40 years) Cigarette Packs Per Day: 0.5 e-Cigarette/Vaping Use: Never Used Advance Directives: Yes Advance Directives on File: Yes Advance Directives Date on File: 11/12/23 service: No 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al status: unemployed and disabled 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 Cognitive needs: No Hearing needs: No Vision needs: Yes Physical Exam ED Vital Signs: Vital Signs - 24 hr 12/10/23 04:11 12/10/23 06:57 Temperature 97.7 F 98.2 F Pulse Rate 60 76 Respiratory Rate 18 16 Blood Pressure 132/66 99/52 L Pulse Oximetry 98 96 Oxygen Delivery Method Room Air Room Air BMI result Body Mass Index 42.5 Const General: cooperative, comfortable and no acute distress Orientation/consciousness: patient oriented x3 Limitations: no limitations HENMT Head: Yes normal to inspection, Yes normocephalic and Yes atraumatic Ears: hearing grossly normal bilaterally General nose exam: Normal external nose present Face and sinus: Yes normal facial exam Mouth: Normal oral and palatal mucosa present, oropharynx normal and moist mucous membranes Throat: Yes posterior oropharynx normal Eyes General: appearance normal, both eyes and all related structures Eyelids: Yes eyelids normal Conjunctivae: conjunctivae normal Sclerae: sclerae normal Pupils: Equal, round and reactive pupils present EOM: EOMs intact bilaterally Neck Neck: Yes normal visual inspection, Yes full ROM and Yes no lymphadenopathy Lymphatic: no lymphadenopathy noted Chest Chest palpation & inspection: normal inspection of the chest Resp Effort & Inspection: normal respiratory effort and able to speak in complete sentences Auscultation: clear to auscultation bilaterally, no crackles, no rales, no rhonchi and no wheezes Cardio Rate: regular rate Rhythm: regular rhythm Heart sounds: S1 normal heart sound present and S2 normal heart sound present GI Other: Obese abdomen, tenderness palpation along the suprapubic region as epigastric right upper and left upper quadrant diffusely, no point palpation. Abdomen is soft. No rebound or guarding. Normoactive bowel sounds present. Inspection: Yes normal to inspection Skin General skin exam: no rashes or lesions noted Trauma: no lacerations or abrasions Wounds: no wounds Neuro General: patient oriented x3 and moves all extremities Cranial nerves: Yes Equal, round and reactive pupils present Extrem General: Yes normal to inspection Right upper extremity: normal to inspection Left upper extremity: normal to inspection Right lower extremity: normal to inspection Left lower extremity: normal to inspection Course Reevaluation(s) Reevaluation #1: CT scan revealing thick wall dilated loops of small bowel measuring up to 2.7 cm. May representing a developing small bowel obstruction. There has a small amount of free fluid in the pelvis. No free intraperitoneal air. At the level of the umbilicus there is residual focal outpouching of the fluid and omentum fat measuring 2.5 x 2.4 cm > likely due to recent surgery. Consult sent to general surgeon, Dr. Andres, Awaiting recommendations. Patient remained stable, comfortable. Time: 09:33 Reevaluation #2: Patient was seen and evaluated by surgeon, Dr. Andres, who reviewed patient's case and saw patient. He states that patient is able to go home. Recommends outpatient follow-up with their office. No changes need to be made for dietary restrictions at this time, does not need to be made NPO. Discussed plan with patient and finisher fine diamond dies at bedside. She understands and agrees with plan. Patient remains asymptomatic at this time, denies any abdominal pain, nausea, or vomiting. Patient stable for discharge. Time: 10:18 Medical Decision Making Medical Decision Making MDM Narrative: This is a 58-year-old female with a past medical history of recent umbilical hernia with incarcerated omentum reduction repair on November 12, 2023, GERD, hypertension, depression, MARVEL, complex regional pain syndrome, cardiomyopathy, pacemaker, gastric bypass 2016, and ventral hernia repair 2016, who presents the emergency department with complaints of acute upper abdominal pain which started yesterday afternoon with associated nausea. On arrival, blood pressure 132/66, patient is afebrile. Repeat vitals stable. Labs were ordered prior to my evaluation, she has no leukocytosis, stable H&H, liver enzymes within normal limits. Creatinine revealing no evidence of RONNIE. Mild hyperglycemia at 180, calcium 10.6, protein 8.4, lipase within normal limits. Differential diagnoses include small-bowel obstruction, ischemic bowel, pancreatitis, cholelithiasis, cholangitis, ACS-unlikely, UTI. Been recent hernia repair, concerning for small bowel obstruction versus ischemia, will obtain CT abd&pelvis for further evaluation Plan: Labs, CT pelvis with IV contrast, UA Differential Diagnosis Differential Diagnoses: The differential diagnosis associated with the presentation includes See above Admission/Observation Consideration of admission/observation: Escalation of care including admission/observation considered Escalation of care including admission/observation considered however given workup today not warranted at this time. Consult Healthcare Provider Management of the patient was discussed with: Snow Removal Supervisor Dr. Andres, surgeon Lab Data [facility] Lab Attestation statement: I reviewed the patient's lab results. she has no leukocytosis, stable H&H, liver enzymes within normal limits. Creatinine revealing no evidence of RONNIE. Mild hyperglycemia at 180, calcium 10.6, protein 8.4, lipase within normal limits. Urine does not appear to be infected. 12/10/23 04:24 12/10/23 04:24 Labs: Lab Results 12/10/23 12/10/23 Range/Units 04:24 08:46 WBC 9.5 (4.8-10.8) X10*3/uL RBC 4.95 (4.20-5.50) X10*6/uL Hgb 13.2 (12.0-16.0) g/dl Hct 41.1 (37.0-47.0) % MCV 83.0 (80.0-98.0) fL MCH 26.7 L (27.0-33.0) pg MCHC 32.1 (31.0-35.0) g/dl RDW 13.8 (11.0-16.0) % Plt Count 186 (160-400) X10*3/uL MPV 11.4 (9.4-12.3) fL Immature Gran % (Auto) 0.1 (0.0-0.4) % Neut % (Auto) 75.7 H (45-73) % Lymph % (Auto) 18.4 L (20-40) % [place] % (Auto) 5.2 (2-11) % Eos % (Auto) 0.3 (0-4) % Baso % (Auto) 0.3 (0-2) % Lymph # (Auto) 1.7 (1.2-4.9) X10*3/uL [place] # (Auto) 0.5 (0.1-1.2) X10*3/uL Eos # (Auto) 0.0 (0.0-0.4) X10*3/uL Baso # (Auto) 0.0 (0.0-0.2) X10*3/uL Abs Immat Gran (auto) 0.01 (0.00-0.03) X10*3/uL Absolute Neuts (auto) 7.2 (2.0-8.3) x10*3/uL Absolute Nucleated RBC 0.000 (0.0-0.012) X10*3/uL Nucleated RBC % (auto) 0.0 (0.0-0.2) /100WBC Sodium 140 (135-145) mmol/L Potassium 4.2 (3.3-5.1) mmol/L Chloride 104 (96-108) mmol/L Carbon Dioxide 24 (22-29) mmol/L Anion Gap 16 (12-20) BUN 21 H (9-16) mg/dL Creatinine 0.83 (0.5-1.4) mg/dL Estim Creat Clear Calc 86.4 Estimated GFR > 60 Random Glucose 180 H (60-115) mg/dL Calcium 10.6 H D (8.4-10.2) mg/dL Total Bilirubin 0.5 (0.0-1.0) mg/dL AST 23 (5-31) U/L ALT 21 (0-31) U/L Alkaline Phosphatase 74 (39-117) U/L Troponin I High Sens < 2.7 (<3.5-17.0) ng/L Total Protein 8.4 H (6.5-8.0) g/dL Albumin 4.3 (3.5-5.0) g/dL Lipase 19 (8-78) U/L Urine Color Dark Yellow Urine Appearance Clear Urine pH 5.5 (5.0-9.0) Ur Specific [place] >= 1.030 H (1.005-1.025) Urine Protein Trace (Neg-Trace) mg/dL Urine Glucose (UA) Negative (Negative) mg/dL Urine Ketones 40 (Negative) mg/dL Urine Blood Negative (Negative) Urine Nitrite Negative (Negative) Ur Leukocyte Esterase Negative (Negative) Urine RBC 0-2 (0-2) /HPF Urine WBC 0-5 (0-5) /HPF Ur Squamous Epith Cells 3-5 (0-2) /HPF Urine Bacteria None Seen (None Seen) Hyaline Casts 0-2 (0-2) /LPF Radiology Impression Discussion of test interpretation with radiology: I have reviewed the radiologist's reading. Radiologist Impression: CT/CT abdomen pelvis w IV con IMPRESSION: At the level of the umbilicus there is a residual focal outpouching of fluid and omental fat measuring 2.5 x 2.4 cm. Advise correlation with surgical history. Thick-walled dilated loops of small bowel measuring up to 2.7 cm. This may represent developing small bowel obstruction. Small free fluid in pelvis. No free intraperitoneal air. Continued imaging surveillance is advised. Dictated By: Kashif Quinn MD Medications Administered Discontinued Medications Generic Name Dose Route Start Last Admin Trade Name Freq PRN Reason Stop Dose Admin Iohexol 85 ml 12/10/23 08:40 12/10/23 08:40 Iohexol 350 Mg/Ml 100 Ml Infus..Btl IV 12/10/23 08:41 85 ml ONCE ONE Administration Discharge Plan Discharge Clinical Impression: Abdominal pain Patient Disposition: Home, Self-Care Instructions: Abdominal Pain (ED) Additional Instructions: You were seen in the emergency department due to abdominal pain. Your CT scan revealed normal surgical changes. This was reviewed by the surgeon, Dr. Andres. Please stay well hydrated. Ensure that you have regular bowel movements. Follow-up with your primary care physician. Follow-up with the surgeon's office, call today to make a follow-up appointment. If any new or worsening symptoms occur including but not limited to fevers, chills, worsening abdominal pain, nausea, vomiting, diarrhea, chest pain or shortness of breath, please return for re-evaluation. Prescriptions: No Action Bariatric Multivitamins 45 mg iron- 800 mcg-120 mcg capsule 1 cap PO .QD Qty: 90 3RF (DME) yovany Roblesc See Rx Instructions .Route Qty: 1 0RF Rx Instructions: As directed lisinopril 2.5 mg tablet 2.5 mg PO DAILY Qty: 90 3RF vitamin A 3,000 mcg (10,000 unit) capsule 2 cap PO DAILY Qty: 180 3RF cholecalciferol (vitamin D3) [Vitamin D3] 50 mcg (2,000 unit) capsule 2,000 unit PO DAILY 90 Days Qty: 90 3RF metoprolol succinate 25 mg tablet extended release 24 hr 25 mg PO DAILY Qty: 90 3RF gabapentin 400 mg capsule 400 mg PO TID 30 Days Qty: 90 8RF furosemide 20 mg tablet 10 mg PO QAM Qty: 45 3RF estradiol [Vagifem] 10 mcg tablet 10 mcg vaginal MOTH Rx Instructions: Use 2 times a week - apply at bedtime, Mon/Thurs triamcinolone acetonide 55 mcg Aerosol,[place] 2 spray INTRANASAL DAILY Rx Instructions: administer into each nostril zinc 50 mg Tablet 25 mg PO DAILY ipratropium bromide 42 mcg (0.06 %) spray,non-aerosol 2 spray intranasal DAILY PRN (Reason: Allergy Symptoms) Rx Instructions: use if going outside cetirizine 10 mg tablet 10 mg PO DAILY PRN (Reason: Allergy Symptoms) Myrbetriq 50 mg tablet extended release 24 hr 50 mg PO DAILY Qty: 90 1RF magnesium oxide 400 mg (241.3 mg magnesium) tablet 400 mg PO DAILY 30 Days Qty: 30 6RF tramadol 50 mg tablet 50 mg PO BID PRN (Reason: pain) 30 Days Qty: 60 1RF Referrals: [facility] [place] [facility] [Provider Group] Print Language: Maori
[2023-12-10 07:54] LABS: Troponin-I High Sensitivity < 2.7 ng/L (<3.5-17.0)
[2023-12-10] MEDS: iohexoL 350 MG/ML 100 ML INFUS..BTL 85 ML IV (08:40)
[2023-12-10 08:54] LABS: Appearance Urine Clear; Color Urine Dark Yellow; Glucose Urine UA Negative (Negative); Leukocyte Esterase Urine Negative (Negative); Nitrite Urine Negative (Negative); PH 5.5 (5.0-9.0); Specific Gravity - Urine >= 1.030 (1.005-1.025); Urine Blood Negative (Negative); Urine Ketones 40 mg/dL (Negative); Urine Protein Trace mg/dL (Neg-Trace)
[2023-12-10 09:02] LABS: Bacteria Urine None Seen (None Seen); Hyaline Casts Urine 0-2 /LPF (0-2); RBC Urine 0-2 /HPF (0-2); WBC Urine 0-5 /HPF (0-5)
--- NOTE | 2023-12-10 10:11 | P.CONGS_ITS ---
History of Present Illness Consult details Consult date: 12/10/23 Narrative: 58-year-old female here in the ER for pain on her incision. She had undergone reduction and repair of incarcerated umbilical hernia last 11/12/2023. She was discharged on postop day 2. She actually had been doing well since that time and had seen her in the office 2 weeks ago for a follow-up visit. She says that yesterday, she was bending over to reach for a book and she had severe pain on her surgical site. She describes some nausea as well. The pain had apparently persisted last night so she came to the emergency room early this morning. However, she says that the pain had already resolved. She also complains of diarrhea this morning described as watery stools. Currently, denies abdominal pain. She denies any fever. Review of Systems 2 Constitutional: Constitutional: Denies chills and Denies fever(s) Cardiovascular: Cardiovascular: Denies chest pain, Denies dyspnea and Denies dyspnea on exertion Respiratory: Respiratory: Denies cough, Denies dyspnea and Denies dyspnea on exertion Gastrointestinal: Gastrointestinal: Denies hematochezia and Denies change in bowel habits Genitourinary: Genitourinary: Denies hematuria Musculoskeletal: Musculoskeletal: Denies back pain and Denies limited range of motion Neurologic: Denies focal weakness and Denies convulsions Psychiatric: Psychiatric: Denies depression and Denies mood swings [facility] Past Medical History Medical History (Updated 12/11/23 @ 00:01 by Background Daemon) Pain at surgical incision Urinary incontinence in female Stress incontinence Lumbar back pain with radiculopathy affecting left lower extremity GERD (gastroesophageal reflux disease) HTN (hypertension) Complex regional pain syndrome i of left lower limb Chronic pain syndrome Cardiac pacemaker in situ Cardiomyopathy Second degree AV block Allergies Osteoarthritis of left knee Spondylosis of lumbosacral spine with radiculopathy Back pain Family History Family History Father Asthma Mother HTN (hypertension) Alzheimer disease Brother Cardiac pacemaker Sister Colon cancer Metastatic cancer Surgical History Surgical History History of hernia repair (~11/12/23) H/O gastric bypass Gastric bypass status for obesity Hx of cholecystectomy Hx of breast reduction, elective Hx of colonoscopy History of esophagogastroduodenoscopy (EGD) History of permanent cardiac pacemaker placement Social History Social History Household Members: None Housing: Apartment Do you presently have 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) Alcohol intake: former Comment: COUNTS CORRECT Patient Tobacco Use Status: Former Tobacco user Quit Date: 14 years (smoked x 40 years) Cigarette Packs Per Day: 0.5 Smoked in Last 30 Days: No e-Cigarette/Vaping Use: Never Used Use of substances other than those prescribed or required for medical reasons: No Advance Directives: Yes Advance Directives on File: Yes Advance Directives Date on File: 11/12/23 service: No 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al status: unemployed and disabled 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 Cognitive needs: No Hearing needs: No Vision needs: Yes Meds Allergies Allergy/AdvReac Type Severity Reaction Status Date / Time adhesive tape Allergy Intermediate skin Verified 12/10/23 04:13 breakdown Home Medications ?Medication ?Instructions ?Recorded ?Confirmed ?Last Taken ?Type cetirizine 10 mg tablet 10 mg PO DAILY PRN Allergy Symptoms 09/20/21 11/21/23 11/16/21 History ipratropium bromide 42 mcg (0.06 2 spray intranasal DAILY PRN 09/20/21 11/11/23 Unknown History %) nasal spray Allergy Symptoms estradiol 10 mcg vaginal tablet 10 mcg vaginal MOTH 11/11/23 11/21/23 11/10/23 History (Vagifem) triamcinolone acetonide 55 mcg 2 spray intranasal DAILY 11/11/23 11/21/23 11/10/23 History nasal spray aerosol zinc 50 mg tablet 25 mg PO DAILY 11/11/23 11/21/23 11/10/23 History Physical Exam 2 Vital Signs: Vital Signs: Last Vital Signs Temp 98.2 F 12/10/23 06:57 Pulse 76 12/10/23 06:57 Resp 16 12/10/23 06:57 BP 99/52 L 12/10/23 06:57 Pulse Ox 96 12/10/23 06:57 O2 Del Method Room Air 12/10/23 06:57 BMI result Body Mass Index 42.5 Const: Other: Morbidly obese, it otherwise appears comfortable and not in distress Resp: Effort & Inspection: normal respiratory effort Cardio: Rate: regular rate GI: Other: Soft, nontender, no guarding, no rebound, surgical repair site is well healed, no obvious fluctuance, induration or any obvious hernia Results Labs 12/10/23 04:24 12/10/23 04:24 Labs: Abnormal lab results 12/10/23 12/10/23 Range/Units 04:24 08:46 MCH 26.7 L (27.0-33.0) pg Neut % (Auto) 75.7 H (45-73) % Lymph % (Auto) 18.4 L (20-40) % BUN 21 H (9-16) mg/dL Random Glucose 180 H (60-115) mg/dL Calcium 10.6 H D (8.4-10.2) mg/dL Total Protein 8.4 H (6.5-8.0) g/dL Ur Specific [place] >= 1.030 H (1.005-1.025) Short CBC 12/10/23 Range/Units 04:24 WBC 9.5 (4.8-10.8) X10*3/uL Hgb 13.2 (12.0-16.0) g/dl Hct 41.1 (37.0-47.0) % Plt Count 186 (160-400) X10*3/uL BMP 12/10/23 04:24 Sodium 140 Potassium 4.2 Chloride 104 Carbon Dioxide 24 BUN 21 H Creatinine 0.83 Calcium 10.6 H D Liver Function 12/10/23 Range/Units 04:24 Total Bilirubin 0.5 (0.0-1.0) mg/dL AST 23 (5-31) U/L ALT 21 (0-31) U/L Alkaline Phosphatase 74 (39-117) U/L Albumin 4.3 (3.5-5.0) g/dL Urine 12/10/23 Range/Units 08:46 Urine Color Dark Yellow Urine Appearance Clear Urine pH 5.5 (5.0-9.0) Ur Specific [place] >= 1.030 H (1.005-1.025) Urine Protein Trace (Neg-Trace) mg/dL Urine Glucose (UA) Negative (Negative) mg/dL All other labs normal. Assessment and Plan (1) Pain at surgical incision: Status: Acute She says her pain has resolved. She complains of diarrhea as well earlier today. I have reviewed her CAT scan. She may have a seroma on her incision site. There was no obvious hernia on palpation. There is mention of some small bowel loops that appears thickened. Clinically, she does not have any obstruction. She has been tolerating diet. She is passing flatus and BMs. She currently looks well. She may be discharged from the ER at this time. I told her that she may have pain on and off from her incision a while. However, I did tell her that if she has severe pain she can call the office or come back to the ER. See her in the office for a follow-up again in about 2 weeks. Procedures Date of Service Date of Service: 12/16/23
[2023-12-10 10:48] VITALS: BP 124/66; PULSE 60; RESP 16; TEMP 36.6; O2SAT 100
[2023-12-10 11:36] LABS: Troponin-I High Sensitivity < 2.7 ng/L (<3.5-17.0)
[2023-12-10 12:00] VITALS: BP 131/50; PULSE 66; RESP 18; TEMP 36.6; O2SAT 98
== END 2023-12-10 12:01 | disposition home or self-care (01) ==
PROVIDERS: Physician Assistant Medical; Emergency Provider Student in an Organized Health Care Education/Training Program; PCP Internal Medicine
DX: L76.82 Other postprocedural complications of skin and subcutaneous tissue (principal); R11.2 Nausea with vomiting, unspecified; R10.10 Upper abdominal pain, unspecified; R94.31 Abnormal electrocardiogram [ECG] [EKG]; Z79.899 Other long term (current) drug therapy; Z87.891 Personal history of nicotine dependence
CPT/HCPCS: 36415; 74177; 80053; 81001; 83690; 84484; 85025; 93005; 99283; 99284; 99285; Q9967

== ENCOUNTER → 2023-12-10 04:22 | Outpatient (BNV) | payer OTHER, SELFPAY | PROVIDERS: Emergency Provider Student in an Organized Health Care Education/Training Program; PCP Internal Medicine; Visit Provider Surgery | DX: L76.82 Other postprocedural complications of skin and subcutaneous tissue (principal) | CPT/HCPCS: 99283 ==

== ENCOUNTER → 2023-12-10 04:26 | Outpatient (BNV) | payer OTHER, SELFPAY | PROVIDERS: Emergency Provider Student in an Organized Health Care Education/Training Program; PCP Internal Medicine; Visit Provider Internal Medicine Cardiovascular Disease | DX: R94.31 Abnormal electrocardiogram [ECG] [EKG] (principal) | CPT/HCPCS: 93010 ==

== ENCOUNTER 2023-12-16 14:55 | Outpatient (AMB) | payer OTHER, SELFPAY ==
--- NOTE | 2023-12-17 10:10 | A.OFFVIS_ITS ---
Intake Intake Visit Reasons: [facility] Allergies adhesive tape Allergy (Intermediate, Verified 12/10/23 04:13) skin breakdown PFSH Medical History (Updated 12/11/23 @ 00:01 by Sekou Corea) Pain at surgical incision Urinary incontinence in female Stress incontinence Lumbar back pain with radiculopathy affecting left lower extremity GERD (gastroesophageal reflux disease) HTN (hypertension) Complex regional pain syndrome i of left lower limb Chronic pain syndrome Cardiac pacemaker in situ Cardiomyopathy Second degree AV block Allergies Osteoarthritis of left knee Spondylosis of lumbosacral spine with radiculopathy Back pain Surgical History History of hernia repair (~11/12/23) H/O gastric bypass Gastric bypass status for obesity Hx of cholecystectomy Hx of breast reduction, elective Hx of colonoscopy History of esophagogastroduodenoscopy (EGD) History of permanent cardiac pacemaker placement Family History Father Asthma Mother HTN (hypertension) Alzheimer disease Brother Cardiac pacemaker Sister Colon cancer Metastatic cancer Social History Household Members: None Housing: Apartment Do you 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 Battery life is less than 6 months. Risks of the function is adequate. Patient will be seen in the office in 3 months for follow-up [id number] Cardiac Device Check, pacemaker dual lead Procedure code (CPT) selection complete Assessment & Plan Assessment & Plan (1) Cardiac pacemaker in situ: Code(s): Z95.0 - Presence of cardiac pacemaker Plan: See above Coding Level of Care Code Procedure Only Diagnoses Cardiac pacemaker in situ Z95.0 CPT Codes Cardiac Device Check - Cardiac Device 2: [id number] Cardiac Device Check, pacemaker dual lead ([id number])
== END 2023-12-16 15:37 | disposition home or self-care (01) ==
PROVIDERS: PCP Internal Medicine; Visit Provider Internal Medicine Cardiovascular Disease
DX: Z45.010 Encounter for checking and testing of cardiac pacemaker pulse generator [battery] (principal)
CPT/HCPCS: 93280

== ENCOUNTER → 2023-12-16 14:55 | Outpatient (BNVA) | payer OTHER, SELFPAY | PROVIDERS: PCP Internal Medicine; Visit Provider Internal Medicine Cardiovascular Disease | DX: Z45.018 Encounter for adjustment and management of other part of cardiac pacemaker (principal) | CPT/HCPCS: 93280 ==

== ENCOUNTER 2023-12-25 14:49 | Outpatient (AMB) | payer OTHER, SELFPAY ==
--- NOTE | 2023-12-25 15:02 | A.OFFVIS_ITS ---
Intake Visit Reasons: ov- Primary osteoarthritis of knees, bilateral Intake Note: Urvashi is a 58 year old female who presents today for a follow up of her bilateral knee OA. Bilateral knees were last injected on 09/25/23. Pt states her knee injections helped and is interested in another injection. Allergies adhesive tape Allergy (Intermediate, Verified 12/25/23 15:03) skin breakdown HPI HPI ov- Primary osteoarthritis of knees, bilateral: Details: Urvashi returns with bilateral knee pain. Injections have been helpful. [facility] Medical History Pain at surgical incision Urinary incontinence in female Stress incontinence Lumbar back pain with radiculopathy affecting left lower extremity GERD (gastroesophageal reflux disease) HTN (hypertension) Complex regional pain syndrome i of left lower limb Chronic pain syndrome Cardiac pacemaker in situ Cardiomyopathy Second degree AV block Allergies Osteoarthritis of left knee Spondylosis of lumbosacral spine with radiculopathy Back pain Surgical History History of hernia repair (~11/12/23) H/O gastric bypass Gastric bypass status for obesity Hx of cholecystectomy Hx of breast reduction, elective Hx of colonoscopy History of esophagogastroduodenoscopy (EGD) History of permanent cardiac pacemaker placement Family History Father Asthma Mother HTN (hypertension) Alzheimer disease Brother Cardiac pacemaker Sister Colon cancer Metastatic cancer Social History Household Members: None Housing: Apartment Do you presently have 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) Alcohol intake: former Comment: COUNTS CORRECT Patient Tobacco Use Status: Former Tobacco user Quit Date: 14 years (smoked x 40 years) Cigarette Packs Per Day: 0.5 e-Cigarette/Vaping Use: Never Used Advance Directives Date on File: 11/12/23 service: No 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al status: unemployed and disabled 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 Cognitive needs: No Hearing needs: No Vision needs: Yes Physical Exam Extrem Other: medial joint line ttp bilaterally Office Procedures Joint Injection/Drain Joint Injection/Drain Details: Injected 1 mL of Decadron and 3 mL 1% lidocaine and 3 mL of 0.25% Marcaine. Site was prepped using aseptic technique. Patient tolerated the procedure well. Primary Site: right knee Secondary Site: left knee Approach Used: anterolateral Coding - Large joint - Glenohumeral/Tronchanteric Bursa/Intraarticular Procedure code (CPT) selection complete Assessment & Plan Assessment & Plan (1) Localized osteoarthritis of knees, bilateral: Code(s): M17.0 - Bilateral primary osteoarthritis of knee Category: Medical Plan: Injected bilateral knees today. Discussed activity and weight loss. May follow up as needed. Coding Level of Care Code Est Pt Level 3 (56981) Diagnoses Localized osteoarthritis of knees, bilateral M17.0 CPT Codes Coding - Large joint: 16101 - Large joint ([id number]) Coding - Joint 7: - Glenohumeral/Tronchanteric Bursa/Intraarticular ([id number])
== END 2023-12-25 15:23 | disposition home or self-care (01) ==
PROVIDERS: PCP Internal Medicine; Visit Provider Orthopaedic Surgery
DX: M17.0 Bilateral primary osteoarthritis of knee (principal)
CPT/HCPCS: 20610

== ENCOUNTER → 2023-12-25 14:49 | Outpatient (BNVA) | payer OTHER, SELFPAY | PROVIDERS: PCP Internal Medicine; Visit Provider Orthopaedic Surgery | DX: M17.0 Bilateral primary osteoarthritis of knee (principal) | CPT/HCPCS: 20610; J0665; J1100 ==

== ENCOUNTER 2023-12-30 11:33 | Outpatient (AMB) | payer OTHER, SELFPAY ==
--- NOTE | 2023-12-30 11:40 | MHC.OFFVIS ---
Vital Signs 12/30/23 11:46 Height 5 ft 3 in Weight 239 lb BMI 42.3 Intake Visit Reasons: Preop RT RF trigger 01/05/24 AR Intake Note: Urvashi 58 yr old female presents today for her Preop visit for her right ring finger trigger release from 01/05/24 AR. States locking of finger has subsided. She does have mild discomfort on incision but doing well over all. She reports mild locking of middle finger but would like to hold off on surgery. Allergies adhesive tape Allergy (Intermediate, Verified 12/30/23 11:44) skin breakdown HPI HPI Preop RT RF trigger 01/05/24 AR: Details: Urvashi is a 58 year old right hand dominant Turkish speaking woman who returns to discuss her right ring trigger finger She says her finger is very painful when it locks, and she sometimes uses a stick to keep her finger straight so it doesnt trigger. She reports some locking of her right middle finger as well, but says it is not painful or bothersome.. She had a hernai repair surgery done on 11/12/23. [facility] Medical History Pain at surgical incision Urinary incontinence in female Stress incontinence Lumbar back pain with radiculopathy affecting left lower extremity GERD (gastroesophageal reflux disease) HTN (hypertension) Complex regional pain syndrome i of left lower limb Chronic pain syndrome Cardiac pacemaker in situ Cardiomyopathy Second degree AV block Allergies Osteoarthritis of left knee Spondylosis of lumbosacral spine with radiculopathy Back pain Surgical History History of hernia repair (~11/12/23) H/O gastric bypass Gastric bypass status for obesity Hx of cholecystectomy Hx of breast reduction, elective Hx of colonoscopy History of esophagogastroduodenoscopy (EGD) History of permanent cardiac pacemaker placement Family History Father Asthma Mother HTN (hypertension) Alzheimer disease Brother Cardiac pacemaker Sister Colon cancer Metastatic cancer Social History Household Members: None Housing: Apartment Do you presently have 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) Alcohol intake: former Comment: COUNTS CORRECT Patient Tobacco Use Status: Former Tobacco user Quit Date: 14 years (smoked x 40 years) Cigarette Packs Per Day: 0.5 e-Cigarette/Vaping Use: Never Used Advance Directives Date on File: 11/12/23 service: No 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al status: unemployed and disabled 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 Cognitive needs: No Hearing needs: No Vision needs: Yes Review of Systems Const All systems reviewed & are unremarkable except as noted in HPI and below Physical Exam Vital Signs: BMI result Body Mass Index 42.3 Const General: no acute distress and alert Orientation/consciousness: patient oriented x3 Neuro General: patient oriented x3 Extrem Other: Evaluation of Upper Extremity: The patient is alert, oriented, and in no acute distress Neuro: Median, Ulnar, Radial nerves motor and sensory intact No intrinsic or thenar wasting Vascular: Cap refill brisk ROM: She can make a fist and extend all her digits Visible and palpable locking & catching of the ring finger Tender over the a1 wan of the ring finger Nerve Conduction Study: Bilateral study ordered, only right-side tested, no explanation given Normal NCS concerning the right upper limb Mild motor axonal loss in the medial nerve of questionable significance Dr. Barton 04/23/23 Psych Appearance: grossly normal Affect: normal affect Attitude: cooperative Assessment & Plan Assessment & Plan (1) Trigger finger, right ring finger: Code(s): M65.341 - Trigger finger, right ring finger Category: Medical (2) Numbness and tingling in both hands: Code(s): R20.0 - Anesthesia of skin; R20.2 - Paresthesia of skin Category: Medical (3) Trigger finger, right middle finger: Code(s): M65.331 - Trigger finger, right middle finger Category: Medical Plan Assessment and plan: 1. Right ring finger trigger finger Date of Injection: 03/07/23 I educated her about this condition The injection was helpful for a few months but her triggering has returned and it very painful I discussed operative and non-operative treatment options The patient would like to proceed with surgery The risks and benefits of operative treatment were discussed with the patient and the patient wishes to proceed with surgery. These risks include, but are not limited to risk of damage to blood vessels, nerves, tendons, infection, recurrence, incomplete relief of preoperative symptoms, persistent pain, possible need for further surgery and the risks associated with regional blocks and anesthesia. The plan is to take the patient to the operating room sometime on 01/05/24 for the following procedures: 1. Right ring trigger finger release, under local All of the preoperative paperwork including the consent was reviewed today. All the patient's questions were answered. She denies Diabetes, blood thinners, asthma, heart, lung, kidney issues She says she has a pacemaker implanted 2. Right middle finger trigger finger She says this is intermittent & occasional She does not interested in operative treatment at this time. If her symptoms increase in frequency or severity she can follow up to discuss treatment options 3. Numbness and tingling in both hands, No complaints today She says this feels more like swelling in her fingertips as opposed to numbness NCS from 05/01/23 was unremarkable, though only the right side was tested If she develops new numbness that occurs daily she will follow up to discuss a new NCS Scribed for Addie Shelley MD by Leif Conner, medical insurance biller, on 12/30/23 at 11:45 AM, EST. Coding Level of Care Code Est Pt Level 4 (74972) Diagnoses Trigger finger, right ring finger M65.341 Numbness and tingling in both hands R20.0; R20.2 Trigger finger, right middle finger M65.331
[2023-12-30 11:46] VITALS: BMI 42.3
== END 2023-12-30 11:51 | disposition home or self-care (01) ==
PROVIDERS: PCP Internal Medicine; Visit Provider Orthopaedic Surgery
DX: M65.341 Trigger finger, right ring finger (principal); R20.0 Anesthesia of skin; R20.2 Paresthesia of skin; M65.331 Trigger finger, right middle finger
CPT/HCPCS: 99214

== ENCOUNTER → 2023-12-30 11:33 | Outpatient (BNVA) | payer OTHER, SELFPAY | PROVIDERS: PCP Internal Medicine; Visit Provider Orthopaedic Surgery | DX: M65.341 Trigger finger, right ring finger (principal); M65.331 Trigger finger, right middle finger; R20.0 Anesthesia of skin; R20.2 Paresthesia of skin | CPT/HCPCS: 99212 ==

== ENCOUNTER 2024-01-05 09:50 | Day surgery (SDC) | payer OTHER, SELFPAY ==
--- NOTE | 2024-01-05 10:00 | W.PM.OPN ---
Operative Note Operative Note Date of Service: 01/05/24 Narrative: Operative Note Preop diagnosis: 1. Right ring finger Trigger finger Postop diagnosis: 1. Right ring finger Trigger finger Procedure: 1. Right ring finger A1 wan release Surgeon: Addie Shelley MD Anesthesia: local block using 1% lidocaine with epinephrine Findings: No locking or catching after A1 wan release EBL: Less than 5 mL Tourniquet time: None Specimens: None Complications: None Disposition: Brought to recovery room in stable condition Plan: Follow-up for 10-14 days for wound check and suture removal Indications: The patient is 58 years old, with a right ring finger trigger finger that has been unresponsive to nonoperative management. The risks and benefits of operative treatment including but not limited to risk of damage to blood vessels, nerves, tendons, infection, persistent pain, persistent symptoms, recurrence or possible need for additional surgery were discussed with the patient and the patient wishes to proceed with surgery. Procedure: Once consent was obtained a local block was performed in the preop area using a combination of 1% lidocaine with epinephrine. The patient was then brought back to the operating suite and placed on the operative table in supine position. The right upper extremity was prepped and draped in a standard surgical fashion. Once assured that we had a good block, a 1.5 cm oblique incision was made centered over the A1 wan of the right ring finger . The incision was made through the skin to the subcutaneous tissues using a #15 blade. Careful dissection was made down to the level of the A1 wan using tenotomy scissors, with care being taken to protect the nearby neurovascular structures. A longitudinal incision was made in the A1 wan 1st using a #15 blade, then using tenotomy scissors under direct visualization. The A1 wan was noted to be thickened. Following our A1 wan release, we no longer saw any locking or catching of the digit with flexion and extension. Once satisfied with our A1 wan release the wound was copiously irrigated with normal saline and hemostasis was obtained with a brief period of local pressure. The skin edges were reapproximated with some 5.0 nylon suture material and a sterile dressing was applied. The patient appears to have tolerated the procedure well and with no complications. All digits were well vascularized at the conclusion of the case.
--- NOTE | 2024-01-05 10:01 | MHC.SHP ---
Pre-Procedural Eval Section A - 24 Hr Update-Section A only Date of Service: 01/05/24 The patient is an INPATIENT: No Changes since office visit: No Cold of Flu in the past 2 weeks, No New Medical Problems, No Changes in Medication and No Patient answered all questions The patient has been examined within 24 hours of the surgical procedure. The History & Physical has been completed within 30 days and I have reviewed it.: Yes Section B - Complete if H&P > 30 days Chief Complaint: Trigger finger, right ring finger Allergies: Allergies Allergy/AdvReac Type Severity Reaction Status Date / Time adhesive tape Allergy Intermediate skin Verified 12/30/23 11:44 breakdown Exam Exam Comment: Right ring finger trigger finger Plan Diagnosis/Plan: Unchanged I have reviewed the history and physical and performed a pertinent physical examination on my patient. No changes have occurred unless specified. Time Spent With Patient Time: Total time managing care of this patient today ____ minutes.
[2024-01-05 11:26] VITALS: BMI 43.2
--- NOTE | 2024-01-05 12:59 | HO.INF ---
S/P VITAL SIGNS: 121/70, P61, R 16, 100% RA
== END 2024-01-05 12:58 | disposition home or self-care (01) ==
PROVIDERS: PCP Internal Medicine; Visit Provider Orthopaedic Surgery
PROC: (CPT 26055; principal; 2024-01-05 10:40)
DX: M65.341 Trigger finger, right ring finger (principal); R20.0 Anesthesia of skin; R20.2 Paresthesia of skin; G89.4 Chronic pain syndrome; G90.522 Complex regional pain syndrome I of left lower limb; M47.27 Other spondylosis with radiculopathy, lumbosacral region; I10 Essential (primary) hypertension; I44.1 Atrioventricular block, second degree; Z95.0 Presence of cardiac pacemaker; L23.1 Allergic contact dermatitis due to adhesives; Z56.0 Unemployment, unspecified; Z98.890 Other specified postprocedural states; Z87.891 Personal history of nicotine dependence
CPT/HCPCS: 26055; J0171

== ENCOUNTER → 2024-01-05 09:50 | Outpatient (BNV) | payer OTHER, SELFPAY | PROVIDERS: PCP Internal Medicine; Visit Provider Orthopaedic Surgery | DX: M65.341 Trigger finger, right ring finger (principal) | CPT/HCPCS: 26055 ==

== ENCOUNTER 2024-01-20 11:46 | Outpatient (AMB) | payer OTHER, SELFPAY ==
--- NOTE | 2024-01-20 11:50 | A.OFFVIS_ITS ---
Vital Signs 01/20/24 11:54 Height 5 ft 3 in Weight 244 lb BMI 43.2 Intake Visit Reasons: PO RT RF trigger 01/05/24 AR Intake Note: Urvashi 58 yr old female presents today for her PO right ring finger trigger release from 01/05/24 AR. States locking has resolved and is doing well. Sutures removed and strei strips applied. Allergies adhesive tape Allergy (Intermediate, Verified 01/21/24 10:40) skin breakdown HPI HPI PO RT RF trigger 01/05/24 AR: Details: Urvashi is a 58 year old right hand dominant Urdu speaking woman who returns S/P right ring finger trigger release, DOS: 01/05/24. She says she is doing well and no longer has any locking or catching. She is happy with the results of her surgery. She has some issues with swelling, pain. and stiffness in her finger, but this is tolerable. [facility] Medical History Pain at surgical incision Urinary incontinence in female Stress incontinence Lumbar back pain with radiculopathy affecting left lower extremity GERD (gastroesophageal reflux disease) HTN (hypertension) Complex regional pain syndrome i of left lower limb Chronic pain syndrome Cardiac pacemaker in situ Cardiomyopathy Second degree AV block Allergies Osteoarthritis of left knee Spondylosis of lumbosacral spine with radiculopathy Back pain Surgical History History of hernia repair (~11/12/23) H/O gastric bypass Gastric bypass status for obesity Hx of cholecystectomy Hx of breast reduction, elective Hx of colonoscopy History of esophagogastroduodenoscopy (EGD) History of permanent cardiac pacemaker placement Family History Father Asthma Mother HTN (hypertension) Alzheimer disease Brother Cardiac pacemaker Sister Colon cancer Metastatic cancer Social History Household Members: None Housing: Apartment Do you 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 have 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) Alcohol intake: former Comment: counts correct Patient Tobacco Use Status: Former Tobacco user Quit Date: 14 years (smoked x 40 years) Cigarette Packs Per Day: 0.5 e-Cigarette/Vaping Use: Never Used Advance Directives Date on File: 11/12/23 service: No 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al status: unemployed and disabled 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 Cognitive needs: No Hearing needs: No Vision needs: Yes Review of Systems Const All systems reviewed & are unremarkable except as noted in HPI and below Physical Exam Vital Signs: BMI result Body Mass Index 43.2 Const General: no acute distress and alert Orientation/consciousness: patient oriented x3 Neuro General: patient oriented x3 Extrem Other: The patient was alert oriented and in no acute distress The incision is healing well with no erythema drainage or evidence of infection. Sutures removed and Steri-Strips applied With encouragement, she can make a fist and extend all her digits, mild stiffness in the ring finger She can place her hand flat on the table No locking or catching Sensation is intact Cap refill is brisk Psych Appearance: grossly normal Affect: normal affect Attitude: cooperative Assessment & Plan Assessment & Plan (1) Trigger finger, right ring finger: Code(s): M65.341 - Trigger finger, right ring finger Category: Medical (2) Trigger finger, right middle finger: Code(s): M65.331 - Trigger finger, right middle finger Category: Medical (3) Numbness and tingling in both hands: Code(s): R20.0 - Anesthesia of skin; R20.2 - Paresthesia of skin Category: Medical Plan Assessment and plan: 1. Right ring finger trigger finger.S/P release, DOS: 01/05/24 The patient appears to be doing well post-operatively I educated her about the post-operative course I explained the signs and symptoms of infection, if the patient develops any new or worsening erythema, drainage, pain, or warmth they should contact the clinic or attend the ED. I discussed activity modifications, she is to lift nothing heavier than a cellphone for the next two weeks She will perform gentle ROM exercises at home She should avoid any underwater activities for the next 5 days She should gently massage about the incision site to reduce the risk of hypersensitivity She can follow up prn 2. Right middle finger trigger finger She says this is intermittent & occasional She does not interested in operative treatment at this time. If her symptoms increase in frequency or severity she can follow up to discuss treatment options 3. Numbness and tingling in both hands, No complaints today She says this feels more like swelling in her fingertips as opposed to numbness NCS from 05/01/23 was unremarkable, though only the right side was tested If she develops new numbness that occurs daily she will follow up to discuss a new NCS Scribed for Addie Shelley MD by Leif Conner, phlebotomist medical lab assistant, on 01/20/24 at 12:05 PM, EST. Coding Level of Care Code Global (03061) Diagnoses Trigger finger, right ring finger M65.341 Trigger finger, right middle finger M65.331 Numbness and tingling in both hands R20.0; R20.2
[2024-01-20 11:54] VITALS: BMI 43.2
== END 2024-01-20 12:28 | disposition home or self-care (01) ==
PROVIDERS: PCP Internal Medicine; Visit Provider Orthopaedic Surgery
DX: M65.341 Trigger finger, right ring finger (principal); M65.331 Trigger finger, right middle finger; R20.0 Anesthesia of skin; R20.2 Paresthesia of skin
CPT/HCPCS: 99024

== ENCOUNTER → 2024-01-20 11:46 | Outpatient (BNVA) | payer OTHER, SELFPAY | PROVIDERS: PCP Internal Medicine; Visit Provider Orthopaedic Surgery | DX: Z47.89 Encounter for other orthopedic aftercare (principal); M65.331 Trigger finger, right middle finger; R20.0 Anesthesia of skin; R20.2 Paresthesia of skin; Z98.890 Other specified postprocedural states | CPT/HCPCS: 99212 ==

== ENCOUNTER → 2024-01-21 10:20 | Outpatient (BNVA) | payer OTHER, SELFPAY | PROVIDERS: PCP Internal Medicine; Visit Provider Registered Nurse Emergency | DX: G90.522 Complex regional pain syndrome I of left lower limb (principal); G89.4 Chronic pain syndrome; M16.12 Unilateral primary osteoarthritis, left hip; M47.27 Other spondylosis with radiculopathy, lumbosacral region; Z79.891 Long term (current) use of opiate analgesic | CPT/HCPCS: 99212 ==

== ENCOUNTER 2024-01-21 10:22 | Outpatient (AMB) | payer OTHER, SELFPAY ==
[2024-01-21 10:39] VITALS: BP 140/79; PULSE 104; RESP 20; O2SAT 98; BMI 41.5
--- NOTE | 2024-01-21 10:39 | A.OFFVIS_ITS ---
Vital Signs 01/21/24 10:39 Height 5 ft 3 in Weight 234 lb 7 oz BMI 41.5 BP 140/79 H Blood Pressure Location Lt brachial Position Sitting Respiration 20 Pulse 104 H Pulse Source Pulse Oximeter Pulse Oximetry (%) 98 Oxygen Delivery Method Room Air Intake Visit Reasons: Medication Count Allergies adhesive tape Allergy (Intermediate, Verified 01/21/24 10:40) skin breakdown HPI Comments Details: Urvashi presents to the office today for follow up chronic pain and chronic opioid therapy management. Patient is prescribed Tramadol 50mg po BID as needed. Patient arrived today with the expectation of having 60 pills, she presented 60 pills which were counted in the presence of two staff members and returned to the patient in the original prescription bottle. This demonstrates responsible attitude toward patient's opioid medications. Pain is reported today as 3/10 and last dose of pain medication was taken at 09:24 this morning. Patient denies side effects including somnolence, constipation, itching, dyspnea, rash, dizziness or weakness. UDS collected at last visit reviewed, no concerns. Prior visit with Dr Ratliff: Urvashi is a very pleasant 57 year old female who presents to the office for follow up chronic pain and chronic opioid therapy management. Last time she was in this office and she was prescribed tramadol 50 mg t.i.d.. She came today with excess of her pills. She brought to us 30 pills from November a and 20 pills from last month. She supposed to have no pills today in her possession. [facility] prescribed to much of the pills for her. We agreed that from now on I will be prescribing her to pills a day. We destroyed pills from November. That left her with 21 pills for this month and. I will restart her medication in 10 days from now which will be 05/09/2023. After we will establish that she is okay with his her medication prescriptions I will continue to see her once in 2 months for the appointments and pill counts. Patient denies any side effects including constipation, abdominal pain, somnolence, nausea, dizziness or falls. She previously had SCS trial with stimwave but did not tolerate, does not want to proceed with SCS at this time. Previously: She? went with me on transforaminal epidural spinal cord stimulator with stim wave technology.? After the procedure? she reported pain exacerbation in radicular distribution she reported numbness in left lower extremity.? During the procedure the insertion of the stimulating wires was quite difficult probably due to foraminal stenosis on those sites.? Her physical exam did not demonstrate any significant roots see below.? The CT scan which was performed to her in the emergency room did not demonstrate any hematoma or any peripheral nerve damage.? She went for EMG done by Dr. Whitfield.? Only peripheral neuropathy was found on EMG.? There were no acute radiculopathy secondary to needle pen etration to the nerve roots.? The patient was treated with gabapentin and short course steroid therapy.? She reports that numbness is improving now.? She supposed to go for Drizly trial of spinal cord stimulator as we planned before...,.? REPLACED BY [facility] Medical History Pain at surgical incision Urinary incontinence in female Stress incontinence Lumbar back pain with radiculopathy affecting left lower extremity GERD (gastroesophageal reflux disease) HTN (hypertension) Complex regional pain syndrome i of left lower limb Chronic pain syndrome Cardiac pacemaker in situ Cardiomyopathy Second degree AV block Allergies Osteoarthritis of left knee Spondylosis of lumbosacral spine with radiculopathy Back pain Surgical History History of hernia repair (~11/12/23) H/O gastric bypass Gastric bypass status for obesity Hx of cholecystectomy Hx of breast reduction, elective Hx of colonoscopy History of esophagogastroduodenoscopy (EGD) History of permanent cardiac pacemaker placement Family History Father Asthma Mother HTN (hypertension) Alzheimer disease Brother Cardiac pacemaker Sister Colon cancer Metastatic cancer Social History Household Members: None Housing: Apartment Do you presently have visiting nurse or other home services: Yes ([employer]) Alcohol intake: former Comment: counts correct Patient Tobacco Use Status: Former Tobacco user Quit Date: 14 years (smoked x 40 years) Cigarette Packs Per Day: 0.5 e-Cigarette/Vaping Use: Never Used Advance Directives Date on File: 11/12/23 service: No 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al status: unemployed and disabled 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 Cognitive needs: No Hearing needs: No Vision needs: Yes Review of Systems Const All systems reviewed & are unremarkable except as noted in HPI and below Physical Exam Vital Signs: Last Vital Signs Pulse 104 H 01/21/24 10:39 Resp 20 01/21/24 10:39 BP 140/79 H 01/21/24 10:39 Pulse Ox 98 01/21/24 10:39 Oxygen Delivery Method Room Air 01/21/24 10:39 BMI result Body Mass Index 41.5 General: awake, alert, oriented. Answers questions appropriately. Fully engaged in examination. Skin: warm, dry, intact without visible rashes or lesions. HEENT: Normocephalic. Hearing intact. Cardiac: External chest normal in appearance. Respiratory: No cough, audible wheezing or stridor. Abdomen: without gross distension. MS: No obvious swelling or deformities. Able to transition from sit to stand unassisted. Neurological: Oriented to person, place, time and situation. Thought process intact. Ambulates with steady gait utilizing cane for assistance. Psychiatric: Appropriate mood and affect. Good judgment and insight. Const Other: Results Reviewed Results Reviewed: 11/05/2021 EXAMINATION: CT LUMBAR SPINE WITHOUT CONTRAST FINDINGS: The heights of the lumbar vertebrae are well-maintained. Subtle grade 1 anterolisthesis of L4 over L5. Mild facet joint arthritic changes are noted at the lower lumbar spine. Posterior appendages are intact.? No evidence of any fracture present. No evidence of any paraspinal, soft tissue hematoma present. The visualized retroperitoneum grossly appears unremarkable. Significant motion artifacts are present. IMPRESSION: No CT evidence of any compression fracture or paraspinal hematoma. Mild grade 1 anterolisthesis of L4 over L5 and facet joint arthritic changes at lower lumbar spine. Assessment & Plan Assessment & Plan (1) Osteoarthritis of left hip: Code(s): M16.12 - Unilateral primary osteoarthritis, left hip Category: Medical Qualifiers: Osteoarthritis type: primary Qualified Code(s): M16.12 - Unilateral primary osteoarthritis, left hip (2) Spondylosis of lumbosacral spine with radiculopathy: Code(s): M47.27 - Other spondylosis with radiculopathy, lumbosacral region Category: Medical (3) Chronic pain syndrome: Code(s): G89.4 - Chronic pain syndrome Category: Medical (4) Complex regional pain syndrome i of left lower limb: Code(s): G90.522 - Complex regional pain syndrome I of left lower limb Category: Medical Plan Masspat was reviewed and without concerns. No obvious signs of diversion, abuse or misuse of the opioid medications. Refill sent for Tramadol 50mg po BID prn with 1 refill. Patient to follow-up in the office in 2 months, sooner if needed. All questions and concerns have been answered and patient agrees with the plan. Stimwave trial L2-L3 L3-L4 done previously but patient reported increased numbness to lateral left thigh. Post procedure CT and EMG were completed which did not demonstrate evidence of acute pathology or radiculopathy. EMG did show evidence of peripheral neuropathy. Due to the side effects, neuropathy and interaction with her pacemaker she does not want to proceed with SCS at this time. Medications: Refilled tramadol 50 mg PO BID 30 days PRN 60 tabs 1RF pain Coding Level of Care Code Est Pt Level 4 (28871) Diagnoses Primary osteoarthritis of left hip M16.12 Osteoarthritis type: primary Spondylosis of lumbosacral spine with radiculopathy M47.27 Chronic pain syndrome G89.4 Complex regional pain syndrome i of left lower limb G90.522
== END 2024-01-21 10:55 | disposition home or self-care (01) ==
PROVIDERS: PCP Internal Medicine; Visit Provider Registered Nurse Emergency
DX: G89.4 Chronic pain syndrome (principal); M16.12 Unilateral primary osteoarthritis, left hip; M47.27 Other spondylosis with radiculopathy, lumbosacral region; G90.522 Complex regional pain syndrome I of left lower limb
CPT/HCPCS: 99214

== ENCOUNTER 2024-02-11 14:41 | Outpatient (REF) | payer OTHER, SELFPAY | END 2024-02-11 14:42 | disposition home or self-care (01) | LOC: HO.LAB 14:41 | PROVIDERS: Visit Provider Urology | DX: N39.0 Urinary tract infection, site not specified (principal) | CPT/HCPCS: 87086 ==

== ENCOUNTER 2024-02-20 08:34 | Outpatient (AMB) | payer OTHER, SELFPAY ==
--- NOTE | 2024-02-20 09:16 | MHC.OFFVIS ---
Intake Visit Reasons: Urodynamics Intake Note: Patient presents today for a URODYNAMIC Procedure: Meds: Vagifem & Mirabegron Allergies to Antibiotic: No Known Allergies Blood Thinner: None Environmental Aide Required: Yes Environmental Aide Language: International Manager Services: Environmental Aide Present Environmental Aide Name: Josue MackayTOMMY/SHERRY MATTHEWS Information Interpreted: non-clinical & clinical Real Estate Utilization Officer: Real Estate Utilization Officer Present Accompanied by: Self / Same As Patient Allergies adhesive tape Allergy (Intermediate, Verified 02/20/24 10:44) skin breakdown Medication List - Last Reconciled 02/20/24 by Sergo Jackson MD cetirizine 10 mg PO DAILY PRN cholecalciferol (vitamin D3) (Vitamin D3) 2,000 units PO DAILY 90 days estradiol (Vagifem) 10 mcg vaginal 2XW furosemide 10 mg (1/2 x 20 mg) PO QAM gabapentin 400 mg PO TID 30 days ipratropium bromide 2 sprays intranasal DAILY PRN lisinopril 2.5 mg PO DAILY magnesium oxide 400 mg PO DAILY 30 days metoprolol succinate ER 25 mg PO DAILY xqsprzmtvqpg-bti-xxvs-FA-vit K 45 mg iron- 800 mcg-120 mcg (Bariatric Multivitamins) 1 cap PO .QD triamcinolone acetonide 2 sprays intranasal DAILY vibegron (Gemtesa) 75 mg PO DAILY vitamin A 2 caps PO DAILY walker As directed zinc 25 mg PO DAILY HPI Comments Details: 02/20/24-- Here for urodynamics. CMG parameters detailed below. Interpretation: During the filling phase there was normal sensation, sensory urgency was noted, strong urge was noted associated with detrusor contraction; leakage was not observed during cough or valsalva stress. Findings consistent with detrusor overactivity. EMG- Appropriate changes in the waveforms were noted during the filling phase. The patient was not able to completely empty with the UDS catheters in place. The patient voided 300 mL in the bathroom after catheters removed. The patient has been on Myrbetriq 50 mg for symptoms of urinary urgency. She states the medication has not helped with her urinary symptoms. She has been doing Kegel exercises. I have discussed alternative treatment options to include trial of additional anti muscarinics, Botox bladder injection was discussed. Discussed Plan for Botox bladder instillation. Review of chart: 09/29/23--Telehealth follow-up, as she has the Flu. she was last seen in the office on 06/23/2023 for office cystoscopy, findings bladder wall thickening. She is on anticholinergics for lower urinary tract symptoms of urgency and incontinence. Today she c/o's of spraying of urinary stream, she does not feel the medication is working. Plan-discussed Will sche urodynamics. 06/23/23?She is followed today for a cystoscopy procedure. The patient is a Arabic-speaking female. A certified door frame assembler machine was present during the visit. She has comorbidities, obesity, sleep apnea. She denies history of a hysterectomy. She has had 3 pregnancies, 2 vaginal deliveries, 1 miscarriage.?She was last seen by me on 03/20/23 for urinary frequency. The patient was prescribed Myrbetriq 50 mg daily for OAB symptoms. Ordered a renal ultrasound to be obtained before the Cystoscopy during that time. I reviewed the retroperitoneum US results from 06/12/23 revealed right-sided pelvic fullness without nephrolithiasis.? Postvoid bladder volume of 22.2 mL with visualization of the bilateral ureteral jets. Cystoscopy findings: mild bladder wall thickening. bladder Filled with 200 mL sterilel water. After removing the cystoscope, Pelvic examination--performed, there was no leakage with valsalva, and minimal leakage with cough in supine position, no significant vaginal prolapse. vaginal atrophy. Plan: Continue Myrbetriq 50 mg daily. Ordered vagifem 10 mEq twice a week. Patient instructed on kegel exercises and to do 10 - 20 repetitions twice a day. Follow-up in 4 months. [facility] Medical History Pain at surgical incision Urinary incontinence in female Stress incontinence Lumbar back pain with radiculopathy affecting left lower extremity GERD (gastroesophageal reflux disease) HTN (hypertension) Complex regional pain syndrome i of left lower limb Chronic pain syndrome Cardiac pacemaker in situ Cardiomyopathy Second degree AV block Allergies Osteoarthritis of left knee Spondylosis of lumbosacral spine with radiculopathy Back pain Surgical History History of hernia repair (~11/12/23) H/O gastric bypass Gastric bypass status for obesity Hx of cholecystectomy Hx of breast reduction, elective Hx of colonoscopy History of esophagogastroduodenoscopy (EGD) History of permanent cardiac pacemaker placement Family History Father Asthma Mother HTN (hypertension) Alzheimer disease Brother Cardiac pacemaker Sister Colon cancer Metastatic cancer Social History Household Members: None Housing: Apartment Do you presently have visiting nurse or other home services: Yes ([employer]) Alcohol intake: former Comment: counts correct Patient Tobacco Use Status: Former Tobacco user Cigarette Packs Per Day: 0.5 e-Cigarette/Vaping Use: Never Used Advance Directives Date on File: 11/12/23 service: No 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al status: unemployed and disabled 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 Cognitive needs: No Hearing needs: No Vision needs: Yes Review of Systems Const All systems reviewed & are unremarkable except as noted in HPI and below Reports no additional complaints Eyes Reports no additional complaints ENT Reports no additional complaints Card Reports no additional complaints Resp Reports no additional complaints GI Reports no additional complaints Reports as per HPI Musc Reports no additional complaints Skin/Breast Reports system reviewed and no additional complaints, except as documented Neuro Reports no additional complaints Psych Reports no additional complaints Endo Reports no additional complaints Osmin/Lymph Reports no additional complaints Aller/Immun Reports no additional complaints Office Procedures Urodynamic Studies Consent Discussed risk and benefit or proposed procedure with the patient. Information consent for procedure given to the patient. Discussed technical aspects, risks, benefits and alternatives in full. Addressed all of the patient's questions and concerns regarding the procedure. The patient demonstrated knowledge and understanding. They wish to proceed with this procedure. Preparation The patient was prepped in the usual manner. A cloth calender was present and in the room. Genitalia was prepped with betadine solution in a sterile manner. Procedure Complex Uroflow Complex uroflow performed by: Sergo Jackson Maximum urinary flow rate (mL/second): 24 Voiding time (seconds): 22 Voided volume (mL): 200 Residual urine (mL): 0 Cystometrogram Vaginal/rectal catheter type: rectal First sensation at (mL): 31 mL First desire at (mL): 134 mL Strong desire to void occured at (mL): 195 mL Maximum fill (mL): 201 mL Pressure at max flow (cm H2O): 26 Maximum flow rate (mL/second): NA---The patient voided 300 mL in the bathroom after catheters removed. Prep: The patient was prepped in the usual manner. A cloth calender was present and in the room. Genitalia was prepped with betadine solution in a sterile manner. 50195-Tmquiyxtmstmpl w/ TECHNICAL PROGRAMS MANAGER 84347-Wupzfcm-Qgkhwrbmgqpu First 85253-Wipc/Urinary Muscle Study 57096-Rstgy-Oijllippc Pressure Test Procedure code (CPT) selection complete Office Meds nitrofurantoin monohydrate/macrocrystals 100 mg capsule Performing Provider: Sergo Jackson MD Performing Location: [facility] Administered by: Hardy Acevedo LPN on 02/20/24 09:18 Dose Route Admin Location Dispensed Lot Number Expiration Date NDC Residential Leasing Agent 100 mg PO 1 cap Assessment & Plan Assessment & Plan (1) Detrusor overactivity: Code(s): N32.81 - Overactive bladder Category: Medical (2) OAB (overactive bladder): Code(s): N32.81 - Overactive bladder Category: Medical Plan Schedule Botox bladder injection Orders: Orders Urine Culture 02/11/24 N39.0 - Urinary tract infection, site not specified AMB Urodynamics Studies Today N32.81 - Overactive bladder Medications: New vibegron (Gemtesa) 75 mg PO DAILY 30 tabs 1RF Discontinued mirabegron ER (Myrbetriq) Discontinued Reason: Doctor's Order 50 mg PO DAILY 90 tabs 1RF Patient Instructions: The patient had an opportunity to ask questions regarding treatment plan. The patient expressed understanding and agreement with the above treatment plan. The patient is aware they should contact our office by phone for worsening of their current condition or the appearance of new symptoms. Compliance is encouraged with any medications and followup testing that is ordered. It is a privilege to be allowed the opportunity to participate in the urologic care of your patient. If you have any questions or concerns regarding treatment for the above conditions please do not hesitate to contact me. The office telephone contact is [phone]. This note is constructed in part using voice recognition software. While every effort has been made to ensure accuracy inspector firearms errors may have been included. Yours sincerely, Sergo Jackson MD Coding Level of Care Code Est Pt Level 4 (16169) Diagnoses Detrusor overactivity N32.81 OAB (overactive bladder) N32.81 CPT Codes Urodynamic Studies - CPT: 35935-Krqkbyamcyyhrk w/ TECHNICAL PROGRAMS MANAGER ([id number]) Urodynamic Studies - CPT: 65169-Mwluwww-Vkswrwnxdcvq First ([id number]) Urodynamic Studies - CPT: 91401-Upcs/Urinary Muscle Study ([id number]) Urodynamic Studies - CPT: 97804-Sfknv-Gwlatpbas Pressure Test ([id number])
== END 2024-02-20 10:40 | disposition home or self-care (01) ==
LOC: HO.HUSH 08:34
PROVIDERS: PCP Internal Medicine; Visit Provider Urology
DX: N32.81 Overactive bladder (principal)
CPT/HCPCS: 51728; 51741; 51784; 51797; 99214

== ENCOUNTER → 2024-02-20 08:34 | Outpatient (BNVA) | payer OTHER, SELFPAY | PROVIDERS: PCP Internal Medicine; Visit Provider Urology | DX: N32.81 Overactive bladder (principal) | CPT/HCPCS: 51728; 51741; 51784; 51797; 99212 ==

== ENCOUNTER → 2024-03-08 10:43 | Outpatient (REF) | payer OTHER, SELFPAY ==
--- NOTE | 2024-03-08 10:48 | CA_ITS ---
Transthoracic Echocardiogram Patient (Last, First, Middle): Brian Kirk Rick Landin Gender: Female Date of : 1965 Age: 58 Procedure Date: 03/08/2024 Procedure Type: Transthoracic Echocardiogram Location: OP Height: 160.02 cm Weight: 107.53 kg BSA: 2.08 m2 Heart Rate: bpm BP: 118 / 60 mmHg Dental Laboratory Manager: Referring MD: Gabriel Salcedo MD Symptoms: I42.9 - Cardiomyopathy, unspecified Study Quality: Fair ECG Rhythm: AV paced rhythm Conclusions: - The left ventricular systolic function is moderately decreased. The visually estimated ejection fraction is between 35-40%. - No obvious valvular pathology seen on this study. Findings Procedure Information Contrast agent, definity, is being given per protocol without apparent complications. Left Ventricle Mildly increased left ventricular cavity size. There is severely increased left ventricular wall thickness. The left ventricular systolic function is moderately decreased. The visually estimated ejection fraction is between 35 40%. There is moderate global hypokinesis. Diastolic function is indeterminate on the basis of available data. Right Ventricle Normal right ventricular cavity size and systolic function. There is a pacemaker wire seen in the right ventricle. Atria Both atria are normal in size. Aortic Valve There is a normal trileaflet aortic valve. There is no aortic valve stenosis. There is no aortic valve regurgitation. Mitral Valve The mitral valve appears normal. There is no mitral valve regurgitation. There is no mitral valve stenosis. Pulmonic Valve The pulmonic valve is likely normal. Tricuspid Valve There is trace tricuspid valve regurgitation. There is no evidence of pulmonary hypertension. Great Vessels The asc aorta is normal in size. Venous The inferior vena cava is normal in size and collapses greater than 50% with inspiration. Pericardium/Pleural There is no evidence of pericardial effusion. Prior Study Comparison Changes noted compared to prior study dated: 02/26/2023. LVEF diminished. Recommendations, Care & Conclusions No obvious valvular pathology seen on this study. Measurements 2D Linear Measurements IVSd: 1.58 0.6-0.9/0.6-1.0 cm LVIDd: 3.75 3.9-5.3/4.2-5.9 cm LVIDd Index: 1.80 2.4-3.2/2.2-3.1 cm/m2 LVIDs: 2.76 2.0-3.6 cm LVPWd: 1.46 0.7-1.1 cm Ao Root: 3.60 2.1-3.5 cm LA Diam: 2.80 2.7-3.8/3.0-4.0 cm LAIDs Index: 1.35 1.5-2.3 cm/m2 LV Mass: 270.72 67-162/88-224 g LV Mass Index: 130.16 43-95/49-115 g/m2 LVOT Diam: 2.20 3.0+(-)1.3 cm 2D Systolic Function EF 4C: 46.30 >55% EF 2C: 44.50 >55% EF BiP: 48.30 >55% Mitral Valve MV Pk E: 1.37 MV Decel Time: 157.00 E'Lateral: 18.70 E'Medial: 8.92 E/E' Med: 15.40 E/E' Lat: 7.30 PHT: 46.00 MVA PHT: 4.78 Decel Brown: 8.71 Aortic Valve AoV Pk Wilfredo: 1.83 AoV Mn Wilfredo: 1.24 AoV VTI: 0.34 AoV Pk Grad: 13.00 Aov Mn Grad: 7.00 PIERO Cont.VTI: 2.05 LVOT LVOT Pk Wilfredo: 0.83 LVOT Mn Wilfredo: 0.55 LVOT VTI: 0.19 LVOT Pk Grad: 3.00 LVOT Mn Grad: 1.00 LVOT Diam: 2.20 LVOT Area: 3.80 Diastolic Function MV Pk E: 1.37 E'Medial: 8.92 E/E' Med: 15.40 E' Laterial: 18.70 E/E' Lat: 7.30 Right Ventricle TAPSE (mm): 21.00 TVS' Wilfredo: 13.00 Tricuspid Valve TR Pk Wilfredo: 1.77 TR Pk Grad: 13.00 RA Press: 3.00 RVSP: 16.00 Great Vessels Aorta Ao Root-2D: 3.60 2.0-3.7 cm Ao Asc: 3.30 2.1-3.4 cm Pulmonary Valve PV Pk Wilfredo: 1.15 Peak PV Grad: 5.00 Updated in Other Vendor System with Status of Final Mohan Goins MD electronically signed on 03/08/2024 3:51:08 PM with status of Final
== END ==
LOC: HO.CARD 10:43
PROVIDERS: PCP Internal Medicine; Visit Provider Internal Medicine Cardiovascular Disease
DX: I42.9 Cardiomyopathy, unspecified (principal)
CPT/HCPCS: 93306; Q9957

== ENCOUNTER → 2024-03-08 10:48 | Outpatient (BNV) | payer OTHER, SELFPAY | PROVIDERS: PCP Internal Medicine; Visit Provider Internal Medicine | DX: I42.9 Cardiomyopathy, unspecified (principal) | CPT/HCPCS: 93306 ==

== ENCOUNTER 2024-03-09 09:40 | Outpatient (AMB) | payer OTHER, SELFPAY ==
[2024-03-09 09:44] VITALS: BP 112/62; PULSE 61; O2SAT 96; BMI 42.9
--- NOTE | 2024-03-09 09:44 | A.OFFPC_ITS ---
Vital Signs 03/09/24 09:44 Height 5 ft 3 in Weight 242 lb 4 oz BMI 42.9 BP 112/62 Blood Pressure Location Lt brachial Position Sitting Pulse 61 Pulse Source Pulse Oximeter Pulse Oximetry (%) 96 Oxygen Delivery Method Room Air Intake Visit Reasons: Follow up ED missed 01/01 Allergies adhesive tape Allergy (Intermediate, Verified 03/09/24 09:44) skin breakdown Medication List - Last Reconciled 03/09/24 by Skyler Whitfield MD cetirizine 10 mg PO DAILY PRN cholecalciferol (vitamin D3) (Vitamin D3) 2,000 units PO DAILY 90 days furosemide 10 mg (1/2 x 20 mg) PO QAM gabapentin 400 mg PO TID 30 days ipratropium bromide 2 sprays intranasal DAILY PRN lisinopril 2.5 mg PO DAILY magnesium oxide 400 mg PO DAILY 30 days metoprolol succinate ER 25 mg PO DAILY mirabegron ER (Myrbetriq) 50 mg PO DAILY letsokkgknfn-prv-ytgm-FA-vit K 45 mg iron- 800 mcg-120 mcg (Bariatric Multivitamins) 1 cap PO .QD triamcinolone acetonide 2 sprays intranasal DAILY vitamin A 2 caps PO DAILY walker As directed zinc 25 mg PO DAILY Tobacco use date assessed: 03/09/24 Dental Screening Dental Screen Date: 03/09/24 Did you have a dental visit in the last 12 months?: Yes Did you have a dental problem in the last 6 months where you did not have access to dental care?: No Was dental information given to patient?: Patient has dentist HPI Follow up ED missed 01/01 HPI Details Patient is a 58-year-old female who went to emergency room [facility] 12/10/2023 Patient wanted to come in for follow-up after that but could not so came in today. Patient have a history of umbilical hernia repair on 11/12/2023, history of GERD, history of hypertension, history of severe depression, currently seeing a therapist and do not want to take medication. She has a history of sleep apnea, complex regional pain syndrome, cardiomyopathy, pacemaker, gastric bypass 2016, ventral hernia repair 2016 presented to emergency room with acute abdominal pain. CT scan done revealed thick walled dilated loops of small bowel measuring up to 2.7 cm. May representing developing obstruction. Small amount of free fluid in pelvis as well. Dr. Andres was consulted after evaluation Dr. Andres felt that patient can go home. And be followed up as outpatient. She is now feeling better there is no more abdominal pain She continued to have swelling of left ankle patient is currently taking frusemide which was helping initially but not anymore. Her blood pressure is 110 systolic, explained to patient that if they increase the dose of frusemide it may drop her blood pressure, I would rather have her wear Danny stockings, patient says that it is difficult for her to wear compression stockings. She has been evaluated by vascular specialist in the past for this problem She has an appointment coming up with nutrition professor this coming Friday, she will discuss it further with them. She will also like us to help her with transportation to her appointments. We will assist her. Patient says that she has difficulty losing weight as she loves candies [facility] Medical History Pain at surgical incision Urinary incontinence in female Stress incontinence Lumbar back pain with radiculopathy affecting left lower extremity GERD (gastroesophageal reflux disease) HTN (hypertension) Complex regional pain syndrome i of left lower limb Chronic pain syndrome Cardiac pacemaker in situ Cardiomyopathy Second degree AV block Allergies Osteoarthritis of left knee Spondylosis of lumbosacral spine with radiculopathy Back pain Surgical History History of hernia repair (~11/12/23) H/O gastric bypass Gastric bypass status for obesity Hx of cholecystectomy Hx of breast reduction, elective Hx of colonoscopy History of esophagogastroduodenoscopy (EGD) History of permanent cardiac pacemaker placement Family History Father Asthma Mother HTN (hypertension) Alzheimer disease Brother Cardiac pacemaker Sister Colon cancer Metastatic cancer Social History Household Members: None Housing: Apartment Do you presently have visiting nurse or other home services: Yes ([employer]) Alcohol intake: former Comment: counts correct Patient Tobacco Use Status: Former Tobacco user Cigarette Packs Per Day: 0.5 e-Cigarette/Vaping Use: Never Used Advance Directives Date on File: 11/12/23 service: No 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al status: unemployed and disabled 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 Cognitive needs: No Hearing needs: No Vision needs: Yes Questionnaire Thrive Questionnaire Date Thrive assessed: 11/12/23 AUDIT C Alcohol Use Questionnaire (AUDIT-C) 1. How often do you have a drink containing alcohol?: Never 3. How often do you have six or more drinks on one occasion?: Never Total Score: 0 Score Reviewed/Action Taken: Yes RITA-7 AMB Questionnaire RITA-7 Date RITA - 7 assessed: 04/10/22 Source: Developed by Drs. Omi Oneill, Barbara Mims, Rodrigo Flores and colleagues, with an educational kevyn from [facility]. Review of Systems Const Denies chills and Denies fever(s) ENT Denies epistaxis and Denies nasal discharge Card Denies chest pain Resp Denies chest congestion, Denies cough and Denies hemoptysis GI Denies diarrhea and Denies nausea Skin/Breast Denies rash Neuro Reports no additional complaints Psych Reports no additional complaints Endo Reports no additional complaints Physical exam (Primary Care) Vital Signs: Last Vital Signs Pulse 61 03/09/24 09:44 BP 112/62 03/09/24 09:44 Pulse Ox 96 03/09/24 09:44 Oxygen Delivery Method Room Air 03/09/24 09:44 BMI result Body Mass Index 42.9 Tobacco/Smoking Status: Tobacco use Status Tobacco use date assessed 03/09/24 03/09/24 09:57 Patient Tobacco Use Status Former Tobacco user 03/09/24 09:48 e-Cigarette/Vaping Use Never Used 03/09/24 09:48 Thrive Assessment: Date of Thrive Assessment Date Thrive assessed 11/12/23 03/09/24 09:48 Const General: cooperative, comfortable and no acute distress Orientation/consciousness: patient oriented x3 [facility] Head: Yes normocephalic Eyes General: appearance normal, both eyes and all related structures Neck Neck: Yes supple Resp Effort & Inspection: normal respiratory effort, no cough and no stridor Cardio Rhythm: regular rhythm Heart sounds: S1 normal heart sound present and S2 normal heart sound present Skin General skin exam: turgor normal Neuro General: patient oriented x3, tone normal and moves all extremities Assessment and Plan Assessment & Plan (1) Varicose veins of left lower extremity with inflammation: Code(s): I83.12 - Varicose veins of left lower extremity with inflammation (2) Morbid obesity: Code(s): E66.01 - Morbid (severe) obesity due to excess calories (3) LFT elevation: Code(s): R79.89 - Other specified abnormal findings of blood chemistry (4) Cardiomyopathy: Code(s): I42.9 - Cardiomyopathy, unspecified Qualifiers: Cardiomyopathy type: unspecified Qualified Code(s): I42.9 - Cardiomyopathy, unspecified (5) Cardiac pacemaker in situ: Code(s): Z95.0 - Presence of cardiac pacemaker (6) Chronic pain syndrome: Code(s): G89.4 - Chronic pain syndrome (7) Complex regional pain syndrome i of left lower limb: Code(s): G90.522 - Complex regional pain syndrome I of left lower limb (8) Obstructive sleep apnea: Code(s): G47.33 - Obstructive sleep apnea (adult) (pediatric) (9) Major depression, recurrent: Code(s): F33.9 - Major depressive disorder, recurrent, unspecified Qualifiers: Active/Remission status: in full remission Qualified Code(s): F33.42 - Major depressive disorder, recurrent, in full remission (10) H/O gastric bypass: Code(s): Z98.84 - Bariatric surgery status (11) Stress incontinence: Code(s): N39.3 - Stress incontinence (female) (male) (12) OAB (overactive bladder): Code(s): N32.81 - Overactive bladder Plan Patient is a 58-year-old female who went to emergency room [facility] 12/10/2023 Patient wanted to come in for follow-up after that but could not so came in today. Patient have a history of umbilical hernia repair on 11/12/2023, history of GERD, history of hypertension, history of severe depression, currently seeing a therapist and do not want to take medication. She has a history of sleep apnea, complex regional pain syndrome, cardiomyopathy, pacemaker, gastric bypass 2016, ventral hernia repair 2016 p resented to emergency room with acute abdominal pain. CT scan done revealed thick walled dilated loops of small bowel measuring up to 2.7 cm. May representing developing obstruction. Small amount of free fluid in pelvis as well. Dr. Andres was consulted after evaluation Dr. Andres felt that patient can go home. And be followed up as outpatient. She is now feeling better there is no more abdominal pain She continued to have swelling of left ankle patient is currently taking frusemide which was helping initially but not anymore. Her blood pressure is 110 systolic, explained to patient that if they increase the dose of frusemide it may drop her blood pressure, I would rather have her wear Danny stockings, patient says that it is difficult for her to wear compression stockings. She has been evaluated by vascular specialist in the past for this problem She has an appointment coming up with nutrition professor this coming Friday, she will discuss it further with them. She will also like us to help her with transportation to her appointments. We will assist her. Patient says that she has difficulty losing weight as she loves candies Currently she is also seeing urologist for stress incontinence, patient wanted to discuss with me the Botox injection in the bladder Explained to patient that every procedure has complications she can make an informed decision herself after discussing with the urologist Coding Level of Care Code Est Pt Level 4 (08356) Complex EM visit Add On G2211 Diagnoses Varicose veins of left lower extremity with inflammation I83.12 Morbid obesity E66.01 LFT elevation R79.89 Cardiomyopathy, unspecified type I42.9 Cardiomyopathy type: unspecified Cardiac pacemaker in situ Z95.0 Chronic pain syndrome G89.4 Complex regional pain syndrome i of left lower limb G90.522 Obstructive sleep apnea G47.33 Recurrent major depressive disorder, in full remission F33.42 Active/Remission status: in full remission H/O gastric bypass Z98.84 Stress incontinence N39.3 OAB (overactive bladder) N32.81
== END 2024-03-09 11:27 | disposition home or self-care (01) ==
PROVIDERS: PCP Internal Medicine; Visit Provider Internal Medicine
DX: I42.9 Cardiomyopathy, unspecified (principal); E66.01 Morbid (severe) obesity due to excess calories; F33.42 Major depressive disorder, recurrent, in full remission; Z68.41 Body mass index [BMI] 40.0-44.9, adult; I83.12 Varicose veins of left lower extremity with inflammation; R79.89 Other specified abnormal findings of blood chemistry; Z95.0 Presence of cardiac pacemaker; G89.4 Chronic pain syndrome; G90.522 Complex regional pain syndrome I of left lower limb; G47.33 Obstructive sleep apnea (adult) (pediatric); Z98.84 Bariatric surgery status; N39.3 Stress incontinence (female) (male)
CPT/HCPCS: 99214; G2211

== ENCOUNTER → 2024-03-15 12:50 | Outpatient (BNVA) | payer OTHER, SELFPAY | PROVIDERS: PCP Internal Medicine; Visit Provider Internal Medicine Cardiovascular Disease ==

== ENCOUNTER 2024-03-17 10:59 | Outpatient (AMB) | payer OTHER, SELFPAY ==
--- NOTE | 2024-03-17 11:02 | MHC.OFFVIS ---
Vital Signs 03/17/24 11:03 Height 5 ft 3 in Weight 243 lb BMI 43.0 BP 155/70 H Blood Pressure Location Rt brachial Position Sitting Pulse 61 Pulse Source Pulse Oximeter Pulse Oximetry (%) 96 Oxygen Delivery Method Room Air Intake Visit Reasons: PILL COUNT Allergies adhesive tape Allergy (Intermediate, Verified 03/17/24 11:06) skin breakdown Medication List - Last Reconciled 03/17/24 by Jonna Garcia cetirizine 10 mg PO DAILY PRN cholecalciferol (vitamin D3) (Vitamin D3) 2,000 units PO DAILY 90 days furosemide 10 mg (1/2 x 20 mg) PO QAM gabapentin 400 mg PO TID 30 days ipratropium bromide 2 sprays intranasal DAILY PRN lisinopril 2.5 mg PO DAILY magnesium oxide 400 mg PO DAILY 30 days metoprolol succinate ER 25 mg PO DAILY xudrhpovumfu-ggr-akot-FA-vit K 45 mg iron- 800 mcg-120 mcg (Bariatric Multivitamins) 1 cap PO .QD triamcinolone acetonide 2 sprays intranasal DAILY vitamin A 2 caps PO DAILY walker As directed zinc 25 mg PO DAILY HPI Comments Details: Urvashi presents to the office today for follow up chronic pain and chronic opioid therapy management. Patient is prescribed Tramadol 50mg po BID as needed. Patient arrived today with the expectation of having 16 pills, she presented 21 pills which were counted in the presence of two staff members and returned to the patient in the original prescription bottle. This demonstrates responsible attitude toward patient's opioid medications. Pain is reported today as 5/10 and last dose of pain medication was taken at 09:00 this morning. Patient denies side effects including somnolence, constipation, itching, dyspnea, rash, dizziness or weakness. Prior visit with Dr Ratliff: Urvashi is a very pleasant 57 year old female who presents to the office for follow up chronic pain and chronic opioid therapy management. Last time she was in this office and she was prescribed tramadol 50 mg t.i.d.. She came today with excess of her pills. She brought to us 30 pills from November and 20 pills from last month. She supposed to have no pills today in her possession. [facility] liver prescribed to much of the pills for her. We agreed that from now on I will be prescribing her to pills a day. We destroyed pills from November. That left her with 21 pills for this month and. I will restart her medication in 10 days from now which will be 05/09/2023. After we will establish that she is okay with his her medication prescriptions I will continue to see her once in 2 months for the appointments and pill counts. Patient denies any side effects including constipation, abdominal pain, somnolence, nausea, dizziness or falls. She previously had SCS trial with stimwave but did not tolerate, does not want to proceed with SCS at this time. Previously: She? went with me on transforaminal epidural spinal cord stimulator with stim wave technology.? After the procedure? she reported pain exacerbation in radicular distribution she reported numbness in left lower extremity.? During the procedure the insertion of the stimulating wires was quite difficult probably due to foraminal stenosis on those sites.? Her physical exam did not demonstrate any significant roots see below.? The CT scan which was performed to her in the emergency room did not demonstrate any hematoma or any peripheral nerve damage.? She went for EMG done by Dr. Whitfield.? Only peripheral neuropathy was found on EMG.? There were no acute radiculopathy secondary to needle penetration to the nerve roots.? The patient was treated with gabapentin and short course steroid therapy.? She reports that numbness is improving now.? She supposed to go for Tag[place] trial of spinal cord stimulator as we planned before...,.? [facility] Medical History Pain at surgical incision Urinary incontinence in female Stress incontinence Lumbar back pain with radiculopathy affecting left lower extremity GERD (gastroesophageal reflux disease) HTN (hypertension) Complex regional pain syndrome i of left lower limb Chronic pain syndrome Cardiac pacemaker in situ Cardiomyopathy Second degree AV block Allergies Osteoarthritis of left knee Spondylosis of lumbosacral spine with radiculopathy Back pain Surgical History History of hernia repair (~11/12/23) H/O gastric bypass Gastric bypass status for obesity Hx of cholecystectomy Hx of breast reduction, elective Hx of colonoscopy History of esophagogastroduodenoscopy (EGD) History of permanent cardiac pacemaker placement Family History Father Asthma Mother HTN (hypertension) Alzheimer disease Brother Cardiac pacemaker Sister Colon cancer Metastatic cancer Social History Household Members: None Housing: Apartment Do you presently have visiting nurse or 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 services: 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) Alcohol intake: former Comment: counts correct Patient Tobacco Use Status: Former Tobacco user Cigarette Packs Per Day: 0.5 e-Cigarette/Vaping Use: Never Used Advance Directives Date on File: 11/12/23 service: No 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al status: unemployed and disabled 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 Cognitive needs: No Hearing needs: No Vision needs: Yes Review of Systems Const All systems reviewed & are unremarkable except as noted in HPI and below Physical Exam Vital Signs: Last Vital Signs Pulse 61 03/17/24 11:03 BP 155/70 H 03/17/24 11:03 Pulse Ox 96 03/17/24 11:03 Oxygen Delivery Method Room Air 03/17/24 11:03 BMI result Body Mass Index 43.0 General: awake, alert, oriented. Answers questions appropriately. Fully engaged in examination. Skin: warm, dry, intact without visible rashes or lesions. HEENT: Normocephalic. Hearing intact. Cardiac: External chest normal in appearance. Respiratory: No cough, audible wheezing or stridor. Abdomen: without gross distension. MS: No obvious swelling or deformities. Able to transition from sit to stand unassisted. Neurological: Oriented to person, place, time and situation. Thought process intact. Ambulates with steady gait utilizing cane for assistance. Psychiatric: Appropriate mood and affect. Good judgment and insight. Const Other: Results Reviewed Results Reviewed: 11/05/2021 EXAMINATION: CT LUMBAR SPINE WITHOUT CONTRAST FINDINGS: The heights of the lumbar vertebrae are well-maintained. Subtle grade 1 anterolisthesis of L4 over L5. Mild facet joint arthritic changes are noted at the lower lumbar spine. Posterior appendages are intact.? No evidence of any fracture present. No evidence of any paraspinal, soft tissue hematoma present. The visualized retroperitoneum grossly appears unremarkable. Significant motion artifacts are present. IMPRESSION: No CT evidence of any compression fracture or paraspinal hematoma. Mild grade 1 anterolisthesis of L4 over L5 and facet joint arthritic changes at lower lumbar spine. Assessment & Plan Assessment & Plan (1) Osteoarthritis of left hip: Code(s): M16.12 - Unilateral primary osteoarthritis, left hip Category: Medical Qualifiers: Osteoarthritis type: primary Qualified Code(s): M16.12 - Unilateral primary osteoarthritis, left hip (2) Spondylosis of lumbosacral spine with radiculopathy: Code(s): M47.27 - Other spondylosis with radiculopathy, lumbosacral region Category: Medical (3) Chronic pain syndrome: Code(s): G89.4 - Chronic pain syndrome Category: Medical (4) Complex regional pain syndrome i of left lower limb: Code(s): G90.522 - Complex regional pain syndrome I of left lower limb Category: Medical Plan [place]pat was reviewed and without concerns. No obvious signs of diversion, abuse or misuse of the opioid medications. Refill sent for Tramadol 50mg po BID prn with 1 refill. Patient to follow-up in the office in 2 months, sooner if needed. All questions and concerns have been answered and patient agrees with the plan. Stimwave trial L2-L3 L3-L4 done previously but patient reported increased numbness to lateral left thigh. Post procedure CT and EMG were completed which did not demonstrate evidence of acute pathology or radiculopathy. EMG did show evidence of peripheral neuropathy. Due to the side effects, neuropathy and interaction with her pacemaker she does not want to proceed with SCS at this time. Medications: Refilled tramadol 50 mg PO BID 30 days PRN 60 tabs 1RF pain Coding Level of Care Code Est Pt Level 4 (25642) Diagnoses Primary osteoarthritis of left hip M16.12 Osteoarthritis type: primary Spondylosis of lumbosacral spine with radiculopathy M47.27 Chronic pain syndrome G89.4 Complex regional pain syndrome i of left lower limb G90.522
[2024-03-17 11:03] VITALS: BP 155/70; PULSE 61; O2SAT 96; BMI 43.0
== END 2024-03-17 11:35 | disposition home or self-care (01) ==
PROVIDERS: PCP Internal Medicine; Visit Provider Registered Nurse Emergency
DX: G89.4 Chronic pain syndrome (principal); M16.12 Unilateral primary osteoarthritis, left hip; M47.27 Other spondylosis with radiculopathy, lumbosacral region; G90.522 Complex regional pain syndrome I of left lower limb
CPT/HCPCS: 99214

== ENCOUNTER → 2024-03-17 10:59 | Outpatient (BNVA) | payer OTHER, SELFPAY | PROVIDERS: PCP Internal Medicine; Visit Provider Registered Nurse Emergency | DX: M16.12 Unilateral primary osteoarthritis, left hip (principal); M47.27 Other spondylosis with radiculopathy, lumbosacral region; G89.4 Chronic pain syndrome; G90.522 Complex regional pain syndrome I of left lower limb; Z51.81 Encounter for therapeutic drug level monitoring; Z79.891 Long term (current) use of opiate analgesic | CPT/HCPCS: 99212 ==

== ENCOUNTER 2024-03-25 14:47 | Outpatient (AMB) | payer OTHER, SELFPAY ==
--- NOTE | 2024-03-25 14:58 | A.OFFVIS_ITS ---
Intake Visit Reasons: ov- Primary osteoarthritis of knees, bilateral Intake Note: Urvashi is a 58 year old female who presents today with a cane for a follow up of her bilateral knee OA. Bilateral knees were injected on 12/25/23. Patient reports her last injections gave her two weeks of relief but she would like to continue with repeating these today. She expresses she frequently feels pain and instability with ambulation and standing. She described the feeling as her knees are going to break. Allergies adhesive tape Allergy (Intermediate, Verified 03/17/24 11:06) skin breakdown HPI HPI ov- Primary osteoarthritis of knees, bilateral: Details: Urvashi is a 58 year old female who presents today with a cane for a follow up of her bilateral knee OA. Bilateral knees were injected on 12/25/23. Patient reports her last injections gave her two weeks of relief but she would like to continue with repeating these today. She expresses she frequently feels pain and instability with ambulation and standing. She described the feeling as her knees are going to break. [facility] Medical History Pain at surgical incision Urinary incontinence in female Stress incontinence Lumbar back pain with radiculopathy affecting left lower extremity GERD (gastroesophageal reflux disease) HTN (hypertension) Complex regional pain syndrome i of left lower limb Chronic pain syndrome Cardiac pacemaker in situ Cardiomyopathy Second degree AV block Allergies Osteoarthritis of left knee Spondylosis of lumbosacral spine with radiculopathy Back pain Surgical History History of hernia repair (~11/12/23) H/O gastric bypass Gastric bypass status for obesity Hx of cholecystectomy Hx of breast reduction, elective Hx of colonoscopy History of esophagogastroduodenoscopy (EGD) History of permanent cardiac pacemaker placement Family History Father Asthma Mother HTN (hypertension) Alzheimer disease Brother Cardiac pacemaker Sister Colon cancer Metastatic cancer Social History Household Members: None Housing: Apartment Do you presently have visiting nurse or other home 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: 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 Site was prepped using aseptic technique. Patient tolerated the procedure well. Primary Site: right knee Secondary Site: left knee Approach Used: anterolateral Coding - Large joint 20230 - Glenohumeral/Tronchanteric Bursa/Intraarticular Procedure code (CPT) selection complete Assessment & Plan Assessment & Plan (1) Primary osteoarthritis of knees, bilateral: Code(s): M17.0 - Bilateral primary osteoarthritis of knee Category: Medical Plan: I injected bilateral knees today. I recommend continued activity as tolerated. She may follow up in 3 months for repeat injections if she so desires. Coding Level of Care Code Est Pt Level 3 (78948) Diagnoses Primary osteoarthritis of knees, bilateral M17.0 CPT Codes Coding - Large joint: 76968 - Large joint ([id number]) Coding - Joint 7: 07127 - Glenohumeral/Tronchanteric Bursa/Intraarticular ([id number])
== END 2024-03-25 15:18 | disposition home or self-care (01) ==
PROVIDERS: PCP Internal Medicine; Visit Provider Orthopaedic Surgery
DX: M17.0 Bilateral primary osteoarthritis of knee (principal)
CPT/HCPCS: 20610; 99213

== ENCOUNTER → 2024-03-25 14:47 | Outpatient (BNVA) | payer OTHER, SELFPAY | PROVIDERS: PCP Internal Medicine; Visit Provider Orthopaedic Surgery | DX: M17.0 Bilateral primary osteoarthritis of knee (principal) | CPT/HCPCS: 20610; 99212; J0665; J1100 ==

== ENCOUNTER 2024-03-31 10:49 | Outpatient (REF) | payer OTHER, SELFPAY ==
--- NOTE | ~2024-03-31 | MM_ITS ---
EXAMINATION: MM SCREENING DIGITAL BREAST TOMOSYNTHESIS, BILATERAL CLINICAL INFORMATION: Screening. Asymptomatic. The patient is status post bilateral breast reduction. COMPARISON: Mammography: This study is compared with prior exams dating back to TECHNIQUE: Digital breast tomosynthesis is performed in both the craniocaudal and mediolateral oblique views along with computer-aided detection (CAD). Synthesized 2D images are generated from the tomosynthesis. FINDINGS: There are scattered areas of fibroglandular density (ACR BI-RADS breast composition Category b). There are no significant masses, abnormal calcifications, or other abnormalities. There is a pacemaker in the superior aspect the left breast. MM/MM tomosynthesis screening BI IMPRESSION: No mammographic evidence of malignancy. ASSESSMENT: BI-RADS BI-RADS 1 - Negative RECOMMENDATION: Routine annual mammography screening. 1 year F/U This examination should not preclude the clinical evaluation of a suspicious palpable abnormality. This patient's information was entered into a reminder system with a target due date for their next mammogram.
== END 2024-03-31 10:50 | disposition home or self-care (01) ==
LOC: HO.MAMMO 10:49
PROVIDERS: PCP Internal Medicine; Visit Provider Internal Medicine
DX: Z12.31 Encounter for screening mammogram for malignant neoplasm of breast (principal); N32.81 Overactive bladder
CPT/HCPCS: 52287; 77063; 77067; 81003; J0585

== ENCOUNTER → 2024-03-31 11:00 | Outpatient (BNV) | payer OTHER, SELFPAY | PROVIDERS: PCP Internal Medicine; Visit Provider Radiology Diagnostic Radiology | DX: Z12.31 Encounter for screening mammogram for malignant neoplasm of breast (principal) | CPT/HCPCS: 77063; 77067 ==

== ENCOUNTER 2024-03-31 13:02 | Outpatient (AMB) | payer OTHER, SELFPAY ==
--- NOTE | 2024-03-31 13:18 | A.OFFVIS_ITS ---
Intake Visit Reasons: Cysto/Bladder Botox Injections Intake Note: Patient is present for Cystoscopy/bladder botox injection Urology Medication:None Antibiotic Allergy:none Blood Thinner:none LOT: EXP: Director Selection And Administration Required: No Allergies adhesive tape Allergy (Intermediate, Verified 03/31/24 13:20) skin breakdown Medication List - Last Reconciled 03/31/24 by Sergo Jackson MD cetirizine 10 mg PO DAILY PRN cholecalciferol (vitamin D3) (Vitamin D3) 2,000 units PO DAILY 90 days furosemide 10 mg (1/2 x 20 mg) PO QAM gabapentin 400 mg PO TID 30 days ipratropium bromide 2 sprays intranasal DAILY PRN lisinopril 2.5 mg PO DAILY magnesium oxide 400 mg PO DAILY 30 days metoprolol succinate ER 25 mg PO DAILY bbynyaeplyqc-jbk-pbqb-FA-vit K 45 mg iron- 800 mcg-120 mcg (Bariatric Multivitamins) 1 cap PO .QD sulfamethoxazole-trimethoprim 800-160 mg (Bactrim DS) 1 tab PO BID 5 days tramadol 50 mg PO BID PRN 30 days triamcinolone acetonide 2 sprays intranasal DAILY vibegron (Gemtesa) 75 mg PO DAILY vitamin A 2 caps PO DAILY walker As directed zinc 25 mg PO DAILY HPI Comments Details: Hui is being followed for lower urinary tract symptoms secondary to overactive bladder. She is here for Botox bladder injection. [facility] Medical History Pain at surgical incision Urinary incontinence in female Stress incontinence Lumbar back pain with radiculopathy affecting left lower extremity GERD (gastroesophageal reflux disease) HTN (hypertension) Complex regional pain syndrome i of left lower limb Chronic pain syndrome Cardiac pacemaker in situ Cardiomyopathy Second degree AV block Allergies Osteoarthritis of left knee Spondylosis of lumbosacral spine with radiculopathy Back pain Surgical History History of hernia repair (~11/12/23) H/O gastric bypass Gastric bypass status for obesity Hx of cholecystectomy Hx of breast reduction, elective Hx of colonoscopy History of esophagogastroduodenoscopy (EGD) History of permanent cardiac pacemaker placement Family History Father Asthma Mother HTN (hypertension) Alzheimer disease Brother Cardiac pacemaker Sister Colon cancer Metastatic cancer Social History Household Members: None Housing: Apartment Do you presently have visiting nurse or other home services: Yes (ACID REMOVER) Alcohol intake: former Comment: counts correct Patient Tobacco Use Status: Former Tobacco user Cigarette Packs Per Day: 0.5 e-Cigarette/Vaping Use: Never Used Advance Directives Date on File: 11/12/23 service: No 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al status: unemployed and disabled 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 Cognitive needs: No Hearing needs: No Vision needs: Yes Office Procedures Cystoscopy Consent Discussed risk and benefit or proposed procedure with the patient. Information consent for procedure given to the patient. Discussed technical aspects, risks, benefits and alternatives in full. Addressed all of the patient's questions and concerns regarding the procedure. The patient demonstrated knowledge and understanding. They wish to proceed with this procedure. Preparation The patient was prepped in the usual manner. A central service technician was present and in the room. Genitalia was prepped with betadine solution in a sterile manner. Lidocaine Jelly 2% was placed into the urethra and 16Fr flexible Olympus cystoscope was inserted into the meatus after adequate lubrication. Procedure Details of procedure: Time-out was done per protocol. Disposible flexible cystoscope was placed transurethrally into the bladder. The right and left ureteral orifices were visualized. There were no suspicious bladder lesions seen. The Botox 100 units was mixed with 10 cc of normal saline and injected transurethrally 1/2 cc to 1 cc per injection into the posterior bladder wall. The cystoscope was removed. 35121 - Botox Injection, urethra or bladder DISPOSABLE SCOPE URO-N NEEDLE SCOPE Procedure code (CPT) selection complete Office Meds lidocaine HCl 2 % mucosal jelly in applicator Performing Provider: Sergo Jackson MD Performing Location: [facility] Administered by: Hardy Acevedo LPN on 03/31/24 13:53 Dose Route Admin Location Dispensed Lot Number Expiration Date NDC Research Chef 10 mL intra-urethral 20 mL onabotulinumtoxinA 100 unit solution for injection Performing Provider: Sergo Jackson MD Performing Location: [facility] Administered by: Hardy Acevedo LPN on 03/31/24 13:53 Dose Route Admin Location Dispensed Lot Number Expiration Date ND Research Chef 100 unit transurethral bladder 100 units [id number] 01/30/26 9840-0465-65 ALLERGAN/BOTOX naproxen 500 mg tablet Performing Provider: Sergo Jackson MD Performing [facility] Administered by: Hardy Acevedo LPN on 03/31/24 13:53 Dose Route Admin Location Dispensed Lot Number Expiration Date NDC Research Chef 500 mg PO 1 tab Results AMB Urinalysis, Automated UA Leukoctes 0 Grace/uL Last Edit by Hardy Acevedo LPN on 03/31/24 13:59 UA Nitrite Negative Last Edit by Hardy Acevedo LPN on 03/31/24 13:59 UA Urobilinogen 0.2 mg/dL Last Edit by Hardy Acevedo LPN on 03/31/24 13:59 UA Protein 0 mg/dL Last Edit by Hardy Acevedo LPN on 03/31/24 13:59 UA pH 7.0 Last Edit by Hardy Acevedo LPN on 03/31/24 13:59 UA Blood 0 Rudi/uL Last Edit by Hardy Acevedo LPN on 03/31/24 13:59 UA Specific [place] 1.010 Last Edit by Hardy Acevedo LPN on 03/31/24 13:59 UA Ketone Negative Last Edit by Hardy Acevedo LPN on 03/31/24 13:59 UA Bilirubin 0 mg/dL Last Edit by Hardy Acevedo LPN on 03/31/24 13:59 UA Glucose 0 mg/dL Last Edit by Hardy Acevedo LPN on 03/31/24 13:59 Results Reviewed Results Reviewed: Laboratory Last Values Urine pH (Auto) 7.0 03/31/24 13:52 Specific [place] (Auto) 1.010 03/31/24 13:52 Urine Protein (Auto) 0 mg/dL 03/31/24 13:52 Glucose (UA)(Auto) 0 mg/dL 03/31/24 13:52 Urine Ketones (Auto) Negative 03/31/24 13:52 Urine Blood (Auto) 0 Rudi/uL 03/31/24 13:52 Urine Nitrite (Auto) Negative 03/31/24 13:52 Urine Bilirubin (Auto) 0 mg/dL 03/31/24 13:52 Urine Urobilinogen (Auto) 0.2 mg/dL 03/31/24 13:52 Leukocyte Esterase (Auto) 0 Grace/uL 03/31/24 13:52 Assessment & Plan Assessment & Plan (1) Detrusor overactivity: Code(s): N32.81 - Overactive bladder Category: Medical (2) OAB (overactive bladder): Code(s): N32.81 - Overactive bladder Category: Medical Plan Three-week follow-up with nursing staff to check bladder scan PVR Three-month follow-up with me. Orders: Orders 2 AMB Cystoscopy Today N32.81 - Overactive bladder AMB Urinalysis Automated Today N3.81 - Overactive bladder, R39.15 - Urgency of urination Medications: New vibegron (Gemtesa) 75 mg PO DAILY 30 tabs 3RF Patient Instructions: The patient had an opportunity to ask questions regarding treatment plan. The patient expressed understanding and agreement with the above treatment plan. The patient is aware they should contact our office by phone for worsening of their current condition or the appearance of new symptoms. Compliance is encouraged with any medications and followup testing that is ordered. It is a privilege to be allowed the opportunity to participate in the urologic care of your patient. If you have any questions or concerns regarding treatment for the above conditions please do not hesitate to contact me. The office telephone contact is [phone]. This note is constructed in part using voice recognition software. While every effort has been made to ensure accuracy handle bender errors may have been included. Yours sincerely, Sergo Jackson MD Coding Level of Care Code Procedure Only Diagnoses Detrusor overactivity N32.81 OAB (overactive bladder) N32.81 CPT Codes Cystoscopy - CPT: 23523 - Botox Injection, urethra or bladder ([id number])
== END 2024-03-31 14:35 | disposition home or self-care (01) ==
PROVIDERS: PCP Internal Medicine; Visit Provider Urology
DX: N32.81 Overactive bladder (principal); R39.15 Urgency of urination
CPT/HCPCS: 52287

== ENCOUNTER → 2024-04-20 14:07 | Outpatient (BNVA) | payer OTHER, SELFPAY | PROVIDERS: PCP Internal Medicine; Visit Provider Urology | DX: N32.81 Overactive bladder (principal); R32 Unspecified urinary incontinence; R35.0 Frequency of micturition; R39.15 Urgency of urination | CPT/HCPCS: 51798 ==

== ENCOUNTER 2024-04-22 15:08 | Outpatient (AMB) | payer OTHER, SELFPAY ==
[2024-04-22 15:11] VITALS: BP 110/70; PULSE 59; BMI 41.9
--- NOTE | 2024-04-22 15:11 | MHC.OFFVIS ---
Vital Signs 04/22/24 15:11 Height 5 ft 3 in Weight 236 lb 5.369 oz BMI 41.9 BP 110/70 Blood Pressure Location Lt radial Position Sitting Pulse 59 Pulse Source Monitor Intake Visit Reasons: Follow up Intake Note: f/up-pt is doing fine, Substation Design Draftsperson Required: No Substation Design Draftsperson Name: sigmarie/marcellus cornader Cna Caregiver: Cna Caregiver Present Accompanied by: Employee Allergies adhesive tape Allergy (Intermediate, Verified 03/31/24 13:20) skin breakdown Medication List - Last Reconciled 04/22/24 by Gabriel Salcedo MD cetirizine 10 mg PO DAILY PRN cholecalciferol (vitamin D3) (Vitamin D3) 2,000 units PO DAILY 90 days furosemide 10 mg (1/2 x 20 mg) PO QAM gabapentin 400 mg PO TID 30 days ipratropium bromide 2 sprays intranasal DAILY PRN lisinopril 2.5 mg PO DAILY magnesium oxide 400 mg PO DAILY 30 days metoprolol succinate ER 25 mg PO DAILY mrqfbhvexzdi-hdg-jlci-FA-vit K 45 mg iron- 800 mcg-120 mcg (Bariatric Multivitamins) 1 cap PO .QD sulfamethoxazole-trimethoprim 800-160 mg (Bactrim DS) 1 tab PO BID 5 days tramadol 50 mg PO BID PRN 30 days triamcinolone acetonide 2 sprays intranasal DAILY vibegron (Gemtesa) 75 mg PO DAILY vitamin A 2 caps PO DAILY walker As directed zinc 25 mg PO DAILY HPI Comments Details: Urvashi comes for follow-up. She is accompanied by her director case. She is acting as spanish interpreter and they declined a certified spanish interpreter. She has no new cardiac symptoms. She is worried about a pacemaker, which recently about a month ago was suggestive of reaching GOOD. Her echocardiogram done recently showed moderate LV systolic dysfunction with LVEF of 35-40%. She is denying any new cardiac symptoms. Denies any orthopnea, PND, leg edema which is worsening. Blood pressure remains difficult control, currently on low-dose lisinopril metoprolol as she has history of prior low blood pressure and lightheadedness and near syncopal events. She denies any palpitations. Denies any exertional chest pain. Comes for further evaluation to discussed pacemaker options. [facility] Medical History Pain at surgical incision Urinary incontinence in female Stress incontinence Lumbar back pain with radiculopathy affecting left lower extremity GERD (gastroesophageal reflux disease) HTN (hypertension) Complex regional pain syndrome i of left lower limb Chronic pain syndrome Cardiac pacemaker in situ Cardiomyopathy Second degree AV block Allergies Osteoarthritis of left knee Spondylosis of lumbosacral spine with radiculopathy Back pain Surgical History History of hernia repair (~11/12/23) H/O gastric bypass Gastric bypass status for obesity Hx of cholecystectomy Hx of breast reduction, elective Hx of colonoscopy History of esophagogastroduodenoscopy (EGD) History of permanent cardiac pacemaker placement Family History Father Asthma Mother HTN (hypertension) Alzheimer disease Brother Cardiac pacemaker Sister Colon cancer Metastatic cancer Social History Household Members: None Housing: Apartment Do you presently have visiting nurse or other home services: 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) Alcohol intake: former Comment: counts correct Patient Tobacco Use Status: Former Tobacco user Cigarette Packs Per Day: 0.5 e-Cigarette/Vaping Use: Never Used Advance Directives Date on File: 11/12/23 service: No 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al status: unemployed and disabled 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 Cognitive needs: No Hearing needs: No Vision needs: Yes Review of Systems Const Denies chills, Denies fatigue, Denies fever(s), Denies frequent falls, Denies weakness, Denies weight gain and Denies weight loss ENT Denies dizziness Card Denies chest pain, Denies leg edema, Denies lightheadedness, Denies palpitations, Denies dyspnea and Denies dyspnea on exertion Resp Denies cough, Denies dyspnea and Denies dyspnea on exertion GI Denies hematochezia Musc Denies abnormal gait, Denies muscle weakness, Denies numbness, Denies radiating pain into limb and Denies tingling Neuro Denies abnormal gait, Denies dizziness, Denies frequent falls, Denies numbness, Denies tingling and Denies weakness Endo Denies fatigue and Denies palpitations Physical Exam Vital Signs: Last Vital Signs Pulse 59 04/22/24 15:11 BP 110/70 04/22/24 15:11 BMI result Body Mass Index 41.9 Const General: cooperative, comfortable, no acute distress, alert and awake Nutritional Appearance: obese Orientation/consciousness: patient oriented x3 Limitations: ambulation with cane Neck Neck: Yes trachea midline, Yes supple and Yes no JVD Resp Effort & Inspection: normal respiratory effort Auscultation: clear to auscultation bilaterally Cardio Jugular venous distension: no JVD Palpation: normal PMI Rate: regular rate Rhythm: regular rhythm Heart sounds: S1 normal heart sound present, S2 normal heart sound present, no click, no gallops, no murmurs and no rubs GI Auscultation: normal bowel sounds Skin General skin exam: no rashes or lesions noted Neuro General: patient oriented x3 and no focal motor deficits Extrem General: Yes no clubbing, cyanosis or edema Psych Appearance: grossly normal Office Procedures EKG Details: EKG shows AV dual paced rhythm 95699-[id number], Complete Assessment & Plan Assessment & Plan (1) Cardiac pacemaker in situ: Code(s): Z95.0 - Presence of cardiac pacemaker Category: Medical Plan: Cardiac pacemaker in-situ for infra-Hisian AV block and prior near-syncope. Has been more ventricularly pacer dependent. Pacemaker is near GOOD. Discussed with EPS about pulse generator change. Will schedule in near future. Patient is pacing in the ventricle greater than 60% of the time. No cardiac arrhythmias noted. (2) Cardiomyopathy: Code(s): I42.9 - Cardiomyopathy, unspecified Category: Medical Qualifiers: Cardiomyopathy type: unspecified Qualified Code(s): I42.9 - Cardiomyopathy, unspecified Plan: Nonischemic cardiomyopathy with moderate LV systolic dysfunction at this time without any overt symptoms of heart failure. Can not further tolerate any uptitration of neurohormonal modulation due to low blood pressure prior history of near-syncope. Question would benefit from cardiac resynchronization therapy. Her EF is 35-40% and may not be a candidate for defibrillator therapy but may be include LV pacing to improve LV systolic function. Will discuss with EPS. She has NYHA class 2 symptoms although symptoms could be related to obesity and deconditioning. Will follow up with after pacemaker placement. Thank you for allowing me to partake in her care Coding Level of Care Code Est Pt Level 4 (58959) Diagnoses Cardiac pacemaker in situ Z95.0 Cardiomyopathy, unspecified type I42.9 Cardiomyopathy type: unspecified CPT Codes EKG - CPT: 37204-Nrshuxzmustzinkeq, Complete ([id number])
== END 2024-04-22 15:47 | disposition home or self-care (01) ==
PROVIDERS: PCP Internal Medicine; Visit Provider Internal Medicine Cardiovascular Disease
DX: I42.9 Cardiomyopathy, unspecified (principal); Z95.0 Presence of cardiac pacemaker; R94.31 Abnormal electrocardiogram [ECG] [EKG]
CPT/HCPCS: 93010; 99214

== ENCOUNTER → 2024-04-22 15:08 | Outpatient (BNVA) | payer OTHER, SELFPAY | PROVIDERS: PCP Internal Medicine; Visit Provider Internal Medicine Cardiovascular Disease | DX: I42.9 Cardiomyopathy, unspecified (principal); Z95.0 Presence of cardiac pacemaker; Z87.891 Personal history of nicotine dependence | CPT/HCPCS: 93005; 99212 ==

== ENCOUNTER 2024-05-17 13:00 | Outpatient (AMB) | payer OTHER, SELFPAY ==
[2024-05-17 13:23] VITALS: BP 132/76; PULSE 88; BMI 41.8
--- NOTE | 2024-05-17 13:23 | A.OFFVIS_ITS ---
Vital Signs 05/17/24 13:23 Height 5 ft 3 in Weight 235 lb 14.314 oz BMI 41.8 BP 132/76 Blood Pressure Location Lt brachial Position Sitting Pulse 88 Intake Visit Reasons: 2 mth fu w/ [employer] Scient- GOOD Intake Note: 2 month follow-up [employer] check ? 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5 mg PO DAILY magnesium oxide 400 mg PO DAILY 30 days metoprolol succinate ER 25 mg PO DAILY amabqsrzpbrl-qrw-fifl-FA-vit K 45 mg iron- 800 mcg-120 mcg (Bariatric Multivitamins) 1 cap PO .QD sulfamethoxazole-trimethoprim 800-160 mg (Bactrim DS) 1 tab PO BID 5 days tramadol 50 mg PO BID PRN 30 days triamcinolone acetonide 2 sprays intranasal DAILY vibegron (Gemtesa) 75 mg PO DAILY vitamin A 2 caps PO DAILY walker As directed zinc 25 mg PO DAILY HPI Comments Details: Urvashi comes for follow-up. Her pacemaker has reached ERT. Ventricular pacing 64% of time. Continues to exertional shortness of breath. No orthopnea, PND, leg edema. No lightheadedness, syncope. No prolonged palpitation irregular heartbeat. Taking all her medications. [facility] Medical History Pain at surgical incision Urinary incontinence in female Stress incontinence Lumbar back pain with radiculopathy affecting left lower extremity GERD (gastroesophageal reflux disease) HTN (hypertension) Complex regional pain syndrome i of left lower limb Chronic pain syndrome Cardiac pacemaker in situ Cardiomyopathy Second degree AV block Allergies Osteoarthritis of left knee Spondylosis of lumbosacral spine with radiculopathy Back pain Surgical History History of hernia repair (~11/12/23) H/O gastric bypass Gastric bypass status for obesity Hx of cholecystectomy Hx of breast reduction, elective Hx of colonoscopy History of esophagogastroduodenoscopy (EGD) History of permanent cardiac pacemaker placement Family History Father Asthma Mother HTN (hypertension) Alzheimer disease Brother Cardiac pacemaker Sister Colon cancer Metastatic cancer Social History Household Members: None Housing: Apartment Do you presently have visiting nurse or other home services: Yes ([employer]) Alcohol intake: former Comment: counts correct Patient Tobacco Use Status: Former Tobacco user Cigarette Packs Per Day: 0.5 e-Cigarette/Vaping Use: Never Used Advance Directives Date on File: 11/12/23 service: No 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al status: unemployed and disabled 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 Cognitive needs: No Hearing needs: No Vision needs: Yes Review of Systems Const Denies chills, Denies fatigue, Denies fever(s), Denies frequent falls, Denies weakness, Denies weight gain and Denies weight loss ENT Denies dizziness Card Denies chest pain, Denies leg edema, Denies lightheadedness, Denies palpitations, Denies dyspnea, Denies dyspnea on exertion, Denies orthopnea and Denies other (loss of consciousness) Resp Denies cough, Denies dyspnea and Denies dyspnea on exertion GI Denies hematochezia and Denies change in stool character Musc Denies abnormal gait, Denies muscle weakness, Denies numbness, Denies radiating pain into limb and Denies tingling Neuro Denies abnormal gait, Denies dizziness, Denies frequent falls, Denies numbness, Denies tingling and Denies weakness Endo Denies fatigue and Denies palpitations Physical Exam Vital Signs: Last Vital Signs Pulse 88 05/17/24 13:23 BP 132/76 05/17/24 13:23 BMI result Body Mass Index 41.8 Const General: cooperative, comfortable, no acute distress, alert and awake Nutritional Appearance: obese Orientation/consciousness: patient oriented x3 Limitations: ambulation with cane Neck Neck: Yes trachea midline, Yes supple and Yes no JVD Resp Effort & Inspection: normal respiratory effort Auscultation: clear to auscultation bilaterally Cardio Jugular venous distension: no JVD Palpation: normal PMI Rate: regular rate Rhythm: regular rhythm Heart sounds: S1 normal heart sound present, S2 normal heart sound present, no click, no gallops, no murmurs and no rubs GI Auscultation: normal bowel sounds Skin General skin exam: no rashes or lesions noted Neuro General: patient oriented x3 and no focal motor deficits Extrem General: Yes no clubbing, cyanosis or edema Psych Appearance: grossly normal Office Procedures Cardiac Device Check Cardiac Device Check Details: Dual-chamber [employer] pacemaker in place. Ventricular pacing 64% of the time. Pacing lead impedance is stable. No arrhythmias detected. [place] 77726-UA Cardiac Device Check, pacemaker dual lead Procedure code (CPT) selection complete EKG Details: Atrial sensed and ventricular paced rhythm 18418-[id number], Complete Assessment & Plan Assessment & Plan (1) Cardiomyopathy: Code(s): I42.9 - Cardiomyopathy, unspecified Category: Medical Qualifiers: Cardiomyopathy type: unspecified Qualified Code(s): I42.9 - Cardiomyopathy, unspecified Plan: Cardiomyopathy process with moderate LV systolic dysfunction without overt signs of heart failure. Will switch her lisinopril therapy to valsartan therapy with eventually plan if remains persistent LV systolic dysfunction to switch her to Entresto therapy. Continue metoprolol therapy for neurohormonal modulation. Has increase ventricular pacing requirement related to advanced conduction system disease. Will benefit from cardiac resynchronization therapy. Discussed with electrophysiology about the same in the past. Will reschedule her for device upgrade see below. Signs and symptoms of heart failure were discussed. Continued aggressive weight loss program was discussed as well. (2) Cardiac pacemaker in situ: Code(s): Z95.0 - Presence of cardiac pacemaker Category: Medical Plan: Cardiac pacemaker in-situ, with ventricular pacing related to syncope and infra- Hisian block. Increase ventricular pacing. Developed cardiomyopathy process above. Will upgrade dual-chamber device to device with LV pacing to improve LV systolic function. Follow-up echocardiogram in 6 weeks after device upgrade. Will follow up in the clinic in 6 weeks after device placement. Thank you for allowing me to partake in her care Medications: New valsartan 80 mg PO DAILY 30 tabs 5RF Discontinued lisinopril Discontinued Reason: Doctor's Order 2.5 mg PO DAILY 90 tabs 3RF Coding Level of Care Code Est Pt Level 4 (93989) Diagnoses Cardiomyopathy, unspecified type I42.9 Cardiomyopathy type: unspecified Cardiac pacemaker in situ Z95.0 CPT Codes Cardiac Device Check - Cardiac Device 2: [id number]-WE Cardiac Device Check, pacemaker dual lead ([id number]) EKG - CPT: 79781-Xlcvyofqdkgppfndr, Complete ([id number])
== END 2024-05-17 16:09 | disposition home or self-care (01) ==
PROVIDERS: PCP Internal Medicine; Visit Provider Internal Medicine Cardiovascular Disease
DX: I42.9 Cardiomyopathy, unspecified (principal); Z95.0 Presence of cardiac pacemaker
CPT/HCPCS: 93010; 93280; 99214

== ENCOUNTER → 2024-05-17 13:00 | Outpatient (BNVA) | payer OTHER, SELFPAY | PROVIDERS: PCP Internal Medicine; Visit Provider Internal Medicine Cardiovascular Disease | DX: I42.9 Cardiomyopathy, unspecified (principal); Z95.0 Presence of cardiac pacemaker | CPT/HCPCS: 93005; 93280; 99212 ==

== ENCOUNTER 2024-05-19 10:54 | Outpatient (AMB) | payer OTHER, SELFPAY ==
[2024-05-19 11:08] VITALS: BP 141/64; PULSE 69; O2SAT 97; BMI 42.3
--- NOTE | 2024-05-19 11:08 | MHC.OFFVIS ---
Vital Signs 05/19/24 11:08 Height 5 ft 3 in Weight 239 lb BMI 42.3 BP 141/64 H Blood Pressure Location Lt brachial Position Sitting Pulse 69 Pulse Source Pulse Oximeter Pulse Oximetry (%) 97 Oxygen Delivery Method Room Air Intake Visit Reasons: Pill Count Allergies adhesive tape Allergy (Intermediate, Verified 03/31/24 13:20) skin breakdown HPI Comments Details: Urvashi presents to the office today for follow up chronic pain and chronic opioid therapy management. Patient is prescribed Tramadol 50mg po BID as needed. Patient arrived today with the expectation of having 22 pills, she presented 31 pills which were counted in the presence of two staff members and returned to the patient in the original prescription bottle. This demonstrates responsible attitude toward patient's opioid medications. Pain is reported today as 5/10 and last dose of pain medication was taken at 07:00 this morning. Patient denies side effects including somnolence, constipation, itching, dyspnea, rash, dizziness or weakness. Recently evaluated by cardiology. She was started on valsartan, lisinopril was discontinued. Was told her AICD is no longer functional and is awaiting a date to have this replaced. Past visit with Dr Ratliff: Urvashi is a very pleasant 57 year old female who presents to the office for follow up chronic pain and chronic opioid therapy management. Last time she was in this office and she was prescribed tramadol 50 mg t.i.d.. She came today with excess of her pills. She brought to us 30 pills from November a and 20 pills from last month. She supposed to have no pills today in her possession. [facility] prescribed to much of the pills for her. We agreed that from now on I will be prescribing her to pills a day. We destroyed pills from November. That left her with 21 pills for this month and. I will restart her medication in 10 days from now which will be 05/09/2023. After we will establish that she is okay with his her medication prescriptions I will continue to see her once in 2 months for the appointments and pill counts. Patient denies any side effects including constipation, abdominal pain, somnolence, nausea, dizziness or falls. She previously had SCS trial with stimwave but did not tolerate, does not want to proceed with SCS at this time. Previously: She? went with me on transforaminal epidural spinal cord stimulator with stim wave technology.? After the procedure? she reported pain exacerbation in radicular distribution she reported numbness in left lower extremity.? During the procedure the insertion of the stimulating wires was quite difficult probably due to foraminal stenosis on those sites.? Her physical exam did not demonstrate any significant roots see below.? The CT scan which was performed to her in the emergency room did not demonstrate any hematoma or any peripheral nerve damage.? She went for EMG done by Dr. Whitfield.? Only peripheral neuropathy was found on EMG.? There were no acute radiculopathy secondary to needle penetration to the nerve roots.? The patient was treated with gabapentin and short course steroid therapy.? She reports that numbness is improving now.? She supposed to go for Feedback-Machine trial of spinal cord stimulator as we planned before...,.? REPLACED BY [facility] Medical History Pain at surgical incision Urinary incontinence in female Stress incontinence Lumbar back pain with radiculopathy affecting left lower extremity GERD (gastroesophageal reflux disease) HTN (hypertension) Complex regional pain syndrome i of left lower limb Chronic pain syndrome Cardiac pacemaker in situ Cardiomyopathy Second degree AV block Allergies Osteoarthritis of left knee Spondylosis of lumbosacral spine with radiculopathy Back pain Surgical History History of hernia repair (~11/12/23) H/O gastric bypass Gastric bypass status for obesity Hx of cholecystectomy Hx of breast reduction, elective Hx of colonoscopy History of esophagogastroduodenoscopy (EGD) History of permanent cardiac pacemaker placement Family History Father Asthma Mother HTN (hypertension) Alzheimer disease Brother Cardiac pacemaker Sister Colon cancer Metastatic cancer Social History Household Members: None Housing: Apartment Do you presently have visiting nurse or 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) Alcohol intake: former Comment: counts correct Patient Tobacco Use Status: Former Tobacco user Cigarette Packs Per Day: 0.5 e-Cigarette/Vaping Use: Never Used Advance Directives Date on File: 11/12/23 service: No 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al status: unemployed and disabled 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 Cognitive needs: No Hearing needs: No Vision needs: Yes Review of Systems Const All systems reviewed & are unremarkable except as noted in HPI and below Physical Exam Vital Signs: Last Vital Signs Pulse 69 05/19/24 11:08 BP 141/64 H 05/19/24 11:08 Pulse Ox 97 05/19/24 11:08 Oxygen Delivery Method Room Air 05/19/24 11:08 BMI result Body Mass Index 42.3 General: awake, alert, oriented. Answers questions appropriately. Fully engaged in examination. Skin: warm, dry, intact without visible rashes or lesions. HEENT: Normocephalic. Hearing intact. Cardiac: External chest normal in appearance. Respiratory: No cough, audible wheezing or stridor. Abdomen: without gross distension. MS: No obvious swelling or deformities. Able to transition from sit to stand unassisted. Neurological: Oriented to person, place, time and situation. Thought process intact. Ambulates with steady gait utilizing cane for assistance. Psychiatric: Appropriate mood and affect. Good judgment and insight. Const Other: Results Reviewed Results Reviewed: 11/05/2021 EXAMINATION: CT LUMBAR SPINE WITHOUT CONTRAST FINDINGS: The heights of the lumbar vertebrae are well-maintained. Subtle grade 1 anterolisthesis of L4 over L5. Mild facet joint arthritic changes are noted at the lower lumbar spine. Posterior appendages are intact.? No evidence of any fracture present. No evidence of any paraspinal, soft tissue hematoma present. The visualized retroperitoneum grossly appears unremarkable. Significant motion artifacts are present. IMPRESSION: No CT evidence of any compression fracture or paraspinal hematoma. Mild grade 1 anterolisthesis of L4 over L5 and facet joint arthritic changes at lower lumbar spine. Assessment & Plan Assessment & Plan (1) Osteoarthritis of left hip: Code(s): M16.12 - Unilateral primary osteoarthritis, left hip Category: Medical Qualifiers: Osteoarthritis type: primary Qualified Code(s): M16.12 - Unilateral primary osteoarthritis, left hip (2) Spondylosis of lumbosacral spine with radiculopathy: Code(s): M47.27 - Other spondylosis with radiculopathy, lumbosacral region Category: Medical (3) Chronic pain syndrome: Code(s): G89.4 - Chronic pain syndrome Category: Medical (4) Complex regional pain syndrome i of left lower limb: Code(s): G90.522 - Complex regional pain syndrome I of left lower limb Category: Medical Plan Masspat was reviewed and without concerns. No obvious signs of diversion, abuse or misuse of the opioid medications. Refill sent for Tramadol 50mg po BID prn with 1 refill. Patient to follow-up in the office in 2 months, sooner if needed. All questions and concerns have been answered and patient agrees with the plan. Stimwave trial L2-L3 L3-L4 done previously but patient reported increased numbness to lateral left thigh. Post procedure CT and EMG were completed which did not demonstrate evidence of acute pathology or radiculopathy. EMG did show evidence of peripheral neuropathy. Due to the side effects, neuropathy and interaction with her pacemaker she does not want to proceed with SCS at this time. Medications: Refilled tramadol 50 mg PO BID PRN 60 tabs 1RF pain 30 days Coding Level of Care Code Est Pt Level 4 (66244) Complex EM visit Add On G2211 Diagnoses Primary osteoarthritis of left hip M16.12 Osteoarthritis type: primary Spondylosis of lumbosacral spine with radiculopathy M47.27 Chronic pain syndrome G89.4 Complex regional pain syndrome i of left lower limb G90.522
== END 2024-05-19 11:46 | disposition home or self-care (01) ==
PROVIDERS: PCP Internal Medicine; Visit Provider Registered Nurse Emergency
DX: M16.12 Unilateral primary osteoarthritis, left hip (principal); M47.27 Other spondylosis with radiculopathy, lumbosacral region; G89.4 Chronic pain syndrome; G90.522 Complex regional pain syndrome I of left lower limb
CPT/HCPCS: 99214; G2211

== ENCOUNTER → 2024-05-19 10:54 | Outpatient (BNVA) | payer OTHER, SELFPAY | PROVIDERS: PCP Internal Medicine; Visit Provider Registered Nurse Emergency | DX: M16.12 Unilateral primary osteoarthritis, left hip (principal); M47.27 Other spondylosis with radiculopathy, lumbosacral region; G89.4 Chronic pain syndrome; G90.522 Complex regional pain syndrome I of left lower limb; Z79.891 Long term (current) use of opiate analgesic; Z51.81 Encounter for therapeutic drug level monitoring | CPT/HCPCS: 99212 ==

== ENCOUNTER 2024-06-08 15:22 | Outpatient (REF) | payer OTHER, SELFPAY ==
[2024-06-08 15:39] LABS: MANUAL DIFF FLAG NO
[2024-06-08 17:02] LABS: Basophils Percent Auto 0.5 % (0-2); Eosinophils Absolute Auto 0.2 X10*3/uL (0.0-0.4); Eosinophils Percent Auto 3.3 % (0-4); Hematocrit 36.2 % (37.0-47.0); Hemoglobin 11.5 g/dl (12.0-16.0); Imm Gran Abs Auto 0.02 X10*3/uL (0.00-0.03); Imm Gran Pct Auto 0.3 % (0.0-0.4); Lymphocytes Absolute Auto 3.7 X10*3/uL (1.2-4.9); Lymphocytes Percent Auto 50.2 % (20-40); Mean Corpuscular HGB Conc 31.8 g/dl (31.0-35.0); Mean Corpuscular Hemoglobin 27.4 pg (27.0-33.0); Mean Corpuscular Volume 86.2 fL (80.0-98.0); Mean Platelet Volume 11.2 fL (9.4-12.3); Monocytes Absolute Auto 0.5 X10*3/uL (0.1-1.2); Monocytes Percent Auto 6.9 % (2-11); Neutrophils Absolute Auto 2.8 x10*3/uL (2.0-8.3); Neutrophils Percent Auto 38.8 % (45-73); Platelet Count 221 X10*3/uL (160-400); White Blood Count 7.3 X10*3/uL (4.8-10.8)
[2024-06-08 17:09] LABS: INTERNATIONAL NORM RATIO 0.9 (0.9-1.1); Prothrombin Time 10.4 SEC (10.9-12.4)
[2024-06-08 17:35] LABS: Anion Gap 10 (12-20); Blood Urea Nitrogen 18 mg/dL (9-16); Calcium 10.3 mg/dL (8.4-10.2); Carbon Dioxide 29 mmol/L (22-29); Chloride 107 mmol/L (96-108); Estimated Glomerular Filt Rate > 60; Glucose Random 74 mg/dL (60-115); Sodium 142 mmol/L (135-145)
== END 2024-06-08 15:23 | disposition home or self-care (01) ==
LOC: HO.LAB 15:22
PROVIDERS: PCP Internal Medicine; Visit Provider Internal Medicine Cardiovascular Disease
DX: I42.8 Other cardiomyopathies (principal); Z95.0 Presence of cardiac pacemaker
CPT/HCPCS: 36415; 80048; 85025; 85610

== ENCOUNTER 2024-06-18 08:44 | Outpatient (AMB) | payer OTHER, SELFPAY ==
--- NOTE | 2024-06-18 10:03 | A.OFFPC_ITS ---
Vital Signs 3 06/18/24 10:05 Height 5 ft 3 in Weight 253 lb 4 oz BMI 44.9 BP 118/72 Blood Pressure Location Rt brachial Position Sitting Pulse 64 Pulse Source Pulse Oximeter Pulse Oximetry (%) 97 Oxygen Delivery Method Room Air Intake Visit Reasons: Follow up visit Allergies adhesive tape Allergy (Intermediate, Verified 06/18/24 10:04) skin breakdown Medication List - Last Reconciled 06/18/24 by Skyler Whitfield MD cetirizine 10 mg PO DAILY PRN cholecalciferol (vitamin D3) (Vitamin D3) 2,000 units PO DAILY 90 days furosemide 10 mg (1/2 x 20 mg) PO QAM gabapentin 400 mg PO TID 30 days ipratropium bromide 2 sprays intranasal DAILY PRN ketotifen fumarate 0.025%(0.035%) drps ophthalmic (eye) magnesium oxide 400 mg PO DAILY 30 days metoprolol succinate ER 25 mg PO DAILY [id number]-FA-vit K 45 mg iron- 800 mcg-120 mcg (Bariatric Multivitamins) 1 cap PO .QD tramadol 50 mg PO BID PRN 30 days triamcinolone acetonide 2 sprays intranasal DAILY valsartan 80 mg PO DAILY vibegron (Gemtesa) 75 mg PO DAILY vitamin A 2 caps PO DAILY walker As directed zinc 25 mg PO DAILY Tobacco use date assessed: 06/18/24 Dental Screening Dental Screen Date: 06/18/24 Did you have a dental visit in the last 12 months?: Yes Did you have a dental problem in the last 6 months where you did not have access to dental care?: No Was dental information given to patient?: Patient has dentist HPI Follow up visit 2 HPI0 Details Patient is a 58-year-old female who had cardiac pacemaker placed left side chest on of this month She came in for wound check and dressing replacement Her wound looks good healing well no signs of infection inflammation or discharge Dressing was changed. She has appointment coming up with log getter Dr. Salcedo on of this month [facility] Medical History Pain at surgical incision Urinary incontinence in female Stress incontinence Lumbar back pain with radiculopathy affecting left lower extremity GERD (gastroesophageal reflux disease) HTN (hypertension) Complex regional pain syndrome i of left lower limb Chronic pain syndrome Cardiac pacemaker in situ Cardiomyopathy Second degree AV block Allergies Osteoarthritis of left knee Spondylosis of lumbosacral spine with radiculopathy Back pain Surgical History History of hernia repair (~11/12/23) H/O gastric bypass Gastric bypass status for obesity Hx of cholecystectomy Hx of breast reduction, elective Hx of colonoscopy History of esophagogastroduodenoscopy (EGD) History of permanent cardiac pacemaker placement Family History Father Asthma Mother HTN (hypertension) Alzheimer disease Brother Cardiac pacemaker Sister Colon cancer Metastatic cancer Social History Household Members: None Housing: Apartment Do you presently have visiting nurse or 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 How often do you have a drink containing alcohol?: Never 3. How often do you have six or more drinks on one occasion?: Never Total Score: 0 Score Reviewed/Action Taken: Yes RITA-7 AMB Questionnaire RITA-7 Date RITA - 7 assessed: 06/18/24 Feeling nervous, anxious, or on edge: 0 = Not at all Not being able to stop or control worryin = Not at all Worrying too much about different things: 0 = Not at all Trouble relaxin = Not at all Being so restless that it is hard to sit still: 0 = Not at all Becoming easily annoyed or irritable: 0 = Not at all Feeling afraid as if something awful might happen: 0 = Not at all Total RITA-7 score (0-4 normal; 5-9 mild; 10-14 moderate; 15-21 severe): 0 Source: Developed by Drs. Omi Oneill, Barbara B.W. Rodrigo Mims and colleagues, with an educational kevyn from [employer]. RITA-7 Assessment Billing RITA-7 Assessment Tool: RITA-7 Assessment 24092 Review of Systems Const All systems reviewed & are unremarkable except as noted in HPI and below Physical exam (Primary Care) Vital Signs: Last Vital Signs Pulse 64 06/18/24 10:05 BP 118/72 06/18/24 10:05 Pulse Ox 97 06/18/24 10:05 Oxygen Delivery Method Room Air 06/18/24 10:05 BMI result Body Mass Index 44.9 Tobacco/Smoking Status: Tobacco use Status Tobacco use date assessed 06/18/24 06/18/24 10:09 Patient Tobacco Use Status Former Tobacco user 06/18/24 10:09 e-Cigarette/Vaping Use Never Used 06/18/24 10:09 Thrive Assessment: Date of Thrive Assessment Date Thrive assessed 11/12/23 06/18/24 10:09 Const General: no acute distress Orientation/consciousness: patient oriented x3 Eyes General: appearance normal, both eyes and all related structures Chest Chest/axillae images: 2 1. Wound looks well, no signs of infection inflammation no discharge Resp Effort & Inspection: normal respiratory effort and able to speak in complete sentences Auscultation: clear to auscultation bilaterally Neuro General: patient oriented x3 Psych Mental Status: mental status grossly normal Coding Level of Care Code Est Pt Level 3 (01022) Diagnoses Cardiac pacemaker in situ Z95.0 Visit for wound check Z51.89 Additional Codes RITA-7 Assessment Billing - RITA-7 Assessment Tool: RITA-7 Assessment 08785 ([id number]) Assessment & Plan Assessment & Plan (1) Cardiac pacemaker in situ: Code(s): Z95.0 - Presence of cardiac pacemaker Category: Medical (2) Visit for wound check: Code(s): Z51.89 - Encounter for other specified aftercare Category: Medical Plan Patient is a 58-year-old female who had cardiac pacemaker placed left side chest on of this month She came in for wound check and dressing replacement Her wound looks good healing well no signs of infection inflammation or discharge Dressing was changed. She has appointment coming up with log getter Dr. Salcedo on this month
[2024-06-18 10:05] VITALS: BP 118/72; PULSE 64; O2SAT 97; BMI 44.9
== END 2024-06-18 10:41 | disposition home or self-care (01) ==
PROVIDERS: PCP Internal Medicine; Visit Provider Internal Medicine
DX: Z51.89 Encounter for other specified aftercare (principal); Z95.0 Presence of cardiac pacemaker

== ENCOUNTER → 2024-06-18 08:44 | Outpatient (BNVA) | payer OTHER, SELFPAY | PROVIDERS: PCP Internal Medicine; Visit Provider Internal Medicine | DX: Z51.89 Encounter for other specified aftercare (principal); Z95.0 Presence of cardiac pacemaker | CPT/HCPCS: 96127; 99212 ==

== ENCOUNTER 2024-06-21 12:47 | Outpatient (AMB) | payer OTHER, SELFPAY ==
[2024-06-21 12:49] VITALS: BP 120/80; PULSE 71; BMI 44.5
--- NOTE | 2024-06-21 12:49 | MHC.OFFVIS ---
Vital Signs 06/21/24 12:49 Height 5 ft 3 in Weight 251 lb 5.231 oz BMI 44.5 BP 120/80 Blood Pressure Location Lt brachial Position Sitting Pulse 71 Intake Visit Reasons: 6wk follow up/Altocom(NS) Intake Note: 6 weeks post DBL Acquisition c/o being a little sob Allergies adhesive tape Allergy (Intermediate, Verified 06/18/24 10:04) skin breakdown Medication List - Last Reconciled 06/21/24 by Jen Arellano, REVENUE COLLECTOR-C cetirizine 10 mg PO DAILY PRN cholecalciferol (vitamin D3) (Vitamin D3) 2,000 units PO DAILY 90 days furosemide 10 mg (1/2 x 20 mg) PO QAM gabapentin 400 mg PO TID 30 days ipratropium bromide 2 sprays intranasal DAILY PRN ketotifen fumarate 0.025%(0.035%) drps ophthalmic (eye) magnesium oxide 400 mg PO DAILY 30 days metoprolol succinate ER 25 mg PO DAILY [id number]-ben-bcdb-FA-vit K 45 mg iron- 800 mcg-120 mcg (Bariatric Multivitamins) 1 cap PO .QD triamcinolone acetonide 2 sprays intranasal DAILY valsartan 80 mg PO DAILY vibegron (Gemtesa) 75 mg PO DAILY vitamin A 2 caps PO DAILY walker As directed zinc 25 mg PO DAILY HPI HPI 6wk follow up/Altocom(NS): Details: Urvashi is a 58-year-old female with past medical history of hypertension, second-degree AV block, status post dual-chamber pacemaker, newer cardiomyopathy who recently underwent a pacemaker generator change and placement of an LV lead for ROTARY SLICING MACHINE OPERATOR device upgrade. Today she reports that she has been doing well since her pacemaker placement. She has minor soreness at the left upper chest pacemaker site. She has been changing the external dressing and keeping it clean and dry. She denies any concerning symptoms. No chest discomfort at rest or with activity. No shortness of breath, PND, orthopnea or edema. No lightheadedness, presyncope, syncope, falls. Has been doing only light physical activity. Takes all meds as directed. [facility] Medical History Pain at surgical incision Urinary incontinence in female Stress incontinence Lumbar back pain with radiculopathy affecting left lower extremity GERD (gastroesophageal reflux disease) HTN (hypertension) Complex regional pain syndrome i of left lower limb Chronic pain syndrome Cardiac pacemaker in situ Cardiomyopathy Second degree AV block Allergies Osteoarthritis of left knee Spondylosis of lumbosacral spine with radiculopathy Back pain Surgical History History of hernia repair (~11/12/23) H/O gastric bypass Gastric bypass status for obesity Hx of cholecystectomy Hx of breast reduction, elective Hx of colonoscopy History of esophagogastroduodenoscopy (EGD) History of permanent cardiac pacemaker placement Family History Father Asthma Mother HTN (hypertension) Alzheimer disease Brother Cardiac pacemaker Sister Colon cancer Metastatic cancer Social History Household Members: None Housing: Apartment Do you presently have visiting nurse or 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) Alcohol intake: former Comment: counts correct Patient Tobacco Use Status: Former Tobacco user Cigarette Packs Per Day: 0.5 e-Cigarette/Vaping Use: Never Used Advance Directives Date on File: 11/12/23 service: No 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al status: unemployed and disabled 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 Cognitive needs: No Hearing needs: No Vision needs: Yes Review of Systems Const Denies chills, Denies fatigue, Denies fever(s), Denies frequent falls, Denies weakness, Denies weight gain and Denies weight loss ENT Denies dizziness Card Denies chest pain, Denies leg edema, Denies lightheadedness, Denies palpitations, Denies dyspnea, Denies dyspnea on exertion, Denies orthopnea and Denies other (loss of consciousness) Resp Denies cough, Denies dyspnea and Denies dyspnea on exertion GI Denies hematochezia and Denies change in stool character Musc Denies abnormal gait, Denies muscle weakness, Denies numbness, Denies radiating pain into limb and Denies tingling Neuro Denies abnormal gait, Denies dizziness, Denies frequent falls, Denies numbness, Denies tingling and Denies weakness Endo Denies fatigue and Denies palpitations Physical Exam Vital Signs: Last Vital Signs Pulse 71 06/21/24 12:49 BP 120/80 06/21/24 12:49 BMI result Body Mass Index 44.5 Const General: cooperative, healthy appearing, comfortable and no acute distress Orientation/consciousness: patient oriented x3 Neck Neck: Yes normal visual inspection Chest Other: pacer site left upper chest, dressing removed, incision very well appromiated, no signs of redness, draininge, there is soft swelling noted, mild sensitivity to touch. Resp Effort & Inspection: normal respiratory effort Auscultation: clear to auscultation bilaterally, no rales and no rhonchi Cardio Jugular venous distension: no JVD Rate: regular rate Rhythm: regular rhythm Heart sounds: S1 normal heart sound present, S2 normal heart sound present, no gallops, no murmurs and no rubs Neuro General: patient oriented x3 Extrem General: Yes normal to inspection, No no pedal edema and No calf tenderness Psych Appearance: grossly normal Mental Status: mental status grossly normal Speech and movement: Normal speech and movement present Office Procedures EKG Details: [employer] scientific device interrogation today, battery greater than 10 years, DDD mode, low rate 60, atrial threshold 0.6 volts at 0.4 millisecond, RV threshold is 1.5 volts at 0.4 milliseconds, LV threshold 2.4 volts at 1 millisecond, LV threshold stable, RV and LV paced 99%, a paced 10%, no alerts [id number], Complete Assessment & Plan Assessment & Plan (1) Cardiac pacemaker in situ: Code(s): Z95.0 - Presence of cardiac pacemaker Category: Medical Plan: History of [employer] scientific dual-chamber pacemaker placement for second-degree heart block. Recent battery reaching GOOD. She had an echocardiogram done on 03/08/2024 which showed EF 35-40%, no valve abnormalities. Her prior EF was normal, 02/26/2023. She was V pacing all the time. Her reduced EF may be related to continual V pacing. She recently underwent the generator change and an LV lead was placed. Her device was upgraded to a ROTARY SLICING MACHINE OPERATOR. Device interrogation today shows it is functioning normally. Her pacemaker site is well approximated with no signs of infection. A dry gauze dressing placed over it at her request. Site care reviewed. Will continue with remote monitoring. Office interrogation and follow-up 6 months, sooner if needed. (2) Cardiomyopathy: Code(s): I42.9 - Cardiomyopathy, unspecified Category: Medical Qualifiers: Cardiomyopathy type: unspecified Qualified Code(s): I42.9 - Cardiomyopathy, unspecified Plan: Newer cardiomyopathy. She has no reports of anginal sounding symptoms. Her reduced EF could be related to high-frequency a V paced rhythm. Her device was just changed to a ROTARY SLICING MACHINE OPERATOR. Will plan for a limited echocardiogram in 2-3 months to see if her EF has improved. If EF remains down then ischemic evaluation will be required. She is currently on valsartan and metoprolol XL for neurohormonal modulation. If her EF remains down then plan to change her over to Entresto and stop valsartan. Vital signs currently well controlled. Plan of care reviewed and she states understanding. (3) Obstructive sleep apnea: Code(s): G47.33 - Obstructive sleep apnea (adult) (pediatric) Category: Medical Plan: She reports compliance with her CPAP mask Plan Time spent on chart review, documentation, interview and assessment. Orders: Orders CA Echo Limited 3 Months I42.9 - Cardiomyopathy, unspecified Coding Level of Care Code Est Pt Level 4 (31576) Complex EM visit Add On G2211 Diagnoses Cardiac pacemaker in situ Z95.0 Cardiomyopathy, unspecified type I42.9 Cardiomyopathy type: unspecified Obstructive sleep apnea G47.33 CPT Codes EKG - CPT: 97846-[id number], Complete ([id number]) Time Spent (min) 28
== END 2024-06-21 13:45 | disposition home or self-care (01) ==
PROVIDERS: PCP Internal Medicine; Visit Provider Nurse Practitioner Family
DX: I42.9 Cardiomyopathy, unspecified (principal); I44.1 Atrioventricular block, second degree; Z95.0 Presence of cardiac pacemaker; G47.33 Obstructive sleep apnea (adult) (pediatric)
CPT/HCPCS: 93280; 99214; G2211

== ENCOUNTER → 2024-06-21 12:47 | Outpatient (BNVA) | payer OTHER, SELFPAY | PROVIDERS: PCP Internal Medicine; Visit Provider Nurse Practitioner Family | DX: I10 Essential (primary) hypertension (principal); I44.1 Atrioventricular block, second degree; I42.9 Cardiomyopathy, unspecified; G47.33 Obstructive sleep apnea (adult) (pediatric); Z45.018 Encounter for adjustment and management of other part of cardiac pacemaker | CPT/HCPCS: 93280; 99212 ==

== ENCOUNTER 2024-06-25 12:28 | Outpatient (AMB) | payer OTHER, SELFPAY ==
--- NOTE | 2024-06-25 12:44 | A.OFFVIS_ITS ---
Intake Visit Reasons: Inj-B/L knee injection-last injection 03/25/24 Intake Note: Urvashi is a 58 year old female who presents today for bilateral knee injections. Both of her knees were last injected on 03/25/24. These injections have become less effective over time but she wishes to repeat injections today. Allergies adhesive tape Allergy (Intermediate, Verified 06/18/24 10:04) skin breakdown HPI HPI Inj-B/L knee injection-last injection 03/25/24: Details: Urvashi is a 58 year old female who presents today for bilateral knee injections. Both of her knees were last injected on 03/25/24. These injections have become less effective over time but she wishes to repeat injections today. [facility] Medical History Pain at surgical incision Urinary incontinence in female Stress incontinence Lumbar back pain with radiculopathy affecting left lower extremity GERD (gastroesophageal reflux disease) HTN (hypertension) Complex regional pain syndrome i of left lower limb Chronic pain syndrome Cardiac pacemaker in situ Cardiomyopathy Second degree AV block Allergies Osteoarthritis of left knee Spondylosis of lumbosacral spine with radiculopathy Back pain Surgical History History of hernia repair (~11/12/23) H/O gastric bypass Gastric bypass status for obesity Hx of cholecystectomy Hx of breast reduction, elective Hx of colonoscopy History of esophagogastroduodenoscopy (EGD) History of permanent cardiac pacemaker placement Family History Father Asthma Mother HTN (hypertension) Alzheimer disease Brother Cardiac pacemaker Sister Colon cancer Metastatic cancer Social History Household Members: None Housing: Apartment Do you presently have visiting nurse or other home services: Yes ([employer]) Alcohol intake: former Comment: counts correct Patient Tobacco Use Status: Former Tobacco user Cigarette Packs Per Day: 0.5 e-Cigarette/Vaping Use: Never Used Advance Directives Date on File: 11/12/23 service: No 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al status: unemployed and disabled 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 Cognitive needs: No Hearing needs: No Vision needs: Yes Physical Exam Extrem Other: medial joint line ttp bilaterally Office Procedures Joint Injection/Aspiration Joint Injection/Aspiration Details: Injected 1 mL of Decadron and 3 mL 1% lidocaine and 3 mL of 0.25% Marcaine. Site was prepped using aseptic technique. Patient tolerated the procedure well. Primary Site: right knee Secondary Site: left knee Approach Used: anterolateral Coding 31004 - Large joint 85853 - Glenohumeral/Tronchanteric Bursa/Intraarticular Procedure code (CPT) selection complete Assessment & Plan Assessment & Plan (1) Localized osteoarthritis of knees, bilateral: Comment: Injected bilateral knees. Code(s): M17.0 - Bilateral primary osteoarthritis of knee Category: Medical Plan: Injected bilateral knees. F/u 3 mo as needed Coding Level of Care Code Est Pt Level 3 (17187) Diagnoses Localized osteoarthritis of knees, bilateral M17.0 CPT Codes Coding - Large joint: 79712 - Large joint ([id number]) Coding - Joint 7: 70992 - Glenohumeral/Tronchanteric Bursa/Intraarticular ([id number])
== END 2024-06-25 13:08 | disposition home or self-care (01) ==
PROVIDERS: PCP Internal Medicine; Visit Provider Orthopaedic Surgery
DX: M17.0 Bilateral primary osteoarthritis of knee (principal)
CPT/HCPCS: 20610; 99212

== ENCOUNTER → 2024-06-25 12:28 | Outpatient (BNVA) | payer OTHER, SELFPAY | PROVIDERS: PCP Internal Medicine; Visit Provider Orthopaedic Surgery | DX: M17.0 Bilateral primary osteoarthritis of knee (principal) | CPT/HCPCS: 20610; 99212; J0665; J1100; J2003 ==

== ENCOUNTER 2024-06-28 13:08 | Outpatient (AMB) | payer OTHER, SELFPAY ==
--- NOTE | 2024-06-28 13:17 | A.OFFVIS_ITS ---
Intake Visit Reasons: 3m follow up Intake Note: Patient is present for 3m f/u Urology Medication:gemtesa,furrosemide Antibiotic Allergy:none Blood Thinner:vitamin k TODAY'S PVR:249 ML'S Foam Dispenser Required: Yes Foam Dispenser Name: [id number]--Rag Information Interpreted: non-clinical & clinical Allergies adhesive tape Allergy (Intermediate, Verified 06/28/24 13:19) skin breakdown Medication List - Last Reconciled 06/28/24 by Sergo Jackson MD cetirizine 10 mg PO DAILY PRN cholecalciferol (vitamin D3) (Vitamin D3) 2,000 units PO DAILY 90 days furosemide 10 mg (1/2 x 20 mg) PO QAM gabapentin 400 mg PO TID 30 days ipratropium bromide 2 sprays intranasal DAILY PRN ketotifen fumarate 0.025%(0.035%) drps ophthalmic (eye) magnesium oxide 400 mg PO DAILY 30 days metoprolol succinate ER 25 mg PO DAILY hfmnagbwbcvb-irp-oomz-FA-vit K 45 mg iron- 800 mcg-120 mcg (Bariatric Multivitamins) 1 cap PO .QD triamcinolone acetonide 2 sprays intranasal DAILY valsartan 80 mg PO DAILY vibegron (Gemtesa) 75 mg PO DAILY vitamin A 2 caps PO DAILY walker As directed zinc 25 mg PO DAILY HPI Comments Details: 06/28/24--S/P Botox bladder injection 03/28/24--Urvashi is a Cameroonian-speaking female she has been followed due to overactive bladder symptoms urge urinary incontinence. The patient is also prescribed Gemtesa. Urvashi complains that since I performed the urodynamics procedure she has noted spraying of urination. She feels that there is something inside blocking. I have instructed her not to push when she is urinating to see if this may help. I want her to stop the gemtesa for 7 days to see if there is any difference in the voiding pattern. She can resume the gemtesa if her urge symptoms worsen and she has no improvement in the spraying. Will further evaluate with cystoscopy if symptoms persist. Bladder scan PVR 249 mL. Review of chart: 03/25/24-- Office procedure: Bladder botox injection--100 units 02/20/24-- Here for urodynamics. CMG parameters detailed below. Interpretation: During the filling phase there was normal sensation, sensory urgency was noted, strong urge was noted associated with detrusor contraction; leakage was not observed during cough or valsalva stress. Findings consistent with detrusor overactivity. EMG- Appropriate changes in the waveforms were noted during the filling phase. The patient was not able to completely empty with the UDS catheters in place. The patient voided 300 mL in the bathroom after catheters removed. The patient has been on Myrbetriq 50 mg for symptoms of urinary urgency. She states the medication has not helped with her urinary symptoms. She has been doing Kegel exercises. I have discussed alternative treatment options to include trial of additional anti muscarinics, Botox bladder injection was discussed. Discussed Plan for Botox bladder instillation. 09/29/23--Telehealth follow-up, as she has the Flu. she was last seen in the office on 06/23/2023 for office cystoscopy, findings bladder wall thickening. She is on anticholinergics for lower urinary tract symptoms of urgency and incontinence. Today she c/o's of spraying of urinary stream, she does not feel the medication is working. Plan-discussed Will sche urodynamics. 06/23/23?She is followed today for a cystoscopy procedure. The patient is a Cameroonian-speaking female. A certified clinical medical assistant was present during the visit. She has comorbidities, obesity, sleep apnea. She denies history of a hysterectomy. She has had 3 pregnancies, 2 vaginal deliveries, 1 miscarriage.? She was last seen by me on 03/20/23 for urinary frequency. The patient was prescribed Myrbetriq 50 mg daily for OAB symptoms. Ordered a renal ultrasound to be obtained before the Cystoscopy during that time. I reviewed the retroperitoneum US results from 06/12/23 revealed right-sided pelvic fullness without nephrolithiasis.? Postvoid bladder volume of 22.2 mL with visualization of the bilateral ureteral jets. Cystoscopy findings: mild bladder wall thickening. bladder Filled with 200 mL sterilel water. After removing the cystoscope, Pelvic examination--performed, there was no leakage with valsalva, and minimal leakage with cough in supine position, no significant vaginal prolapse. vaginal atrophy. Plan: Continue Myrbetriq 50 mg daily. Ordered vagifem 10 mEq twice a week. Patient instructed on kegel exercises and to do 10 - 20 repetitions twice a day. Follow-up in 4 months. [facility] Medical History Pain at surgical incision Urinary incontinence in female Stress incontinence Lumbar back pain with radiculopathy affecting left lower extremity GERD (gastroesophageal reflux disease) HTN (hypertension) Complex regional pain syndrome i of left lower limb Chronic pain syndrome Cardiac pacemaker in situ Cardiomyopathy Second degree AV block Allergies Osteoarthritis of left knee Spondylosis of lumbosacral spine with radiculopathy Back pain Surgical History History of hernia repair (~11/12/23) H/O gastric bypass Gastric bypass status for obesity Hx of cholecystectomy Hx of breast reduction, elective Hx of colonoscopy History of esophagogastroduodenoscopy (EGD) History of permanent cardiac pacemaker placement Family History Father Asthma Mother HTN (hypertension) Alzheimer disease Brother Cardiac pacemaker Sister Colon cancer Metastatic cancer Social History Household Members: None Housing: Apartment 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) Alcohol intake: former Comment: counts correct Patient Tobacco Use Status: Former Tobacco user Cigarette Packs Per Day: 0.5 e-Cigarette/Vaping Use: Never Used Advance Directives Date on File: 11/12/23 service: No 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al status: unemployed and disabled 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 Cognitive needs: No Hearing needs: No Vision needs: Yes Review of Systems Const All systems reviewed & are unremarkable except as noted in HPI and below Reports no additional complaints Eyes Reports no additional complaints ENT Reports no additional complaints Card Reports no additional complaints Resp Reports no additional complaints GI Reports no additional complaints Reports as per HPI Musc Reports no additional complaints Skin/Breast Reports system reviewed and no additional complaints, except as documented Neuro Reports no additional complaints Psych Reports no additional complaints Endo Reports no additional complaints Osmin/Lymph Reports no additional complaints Aller/Immun Reports no additional complaints Office Procedures Post Void Residual Post Residual Void Post Void Residual (PVR): 249 [id number] Void Residual by ultrasound Results AMB Urinalysis, Automated UA Leukoctes 0 Grace/uL Last Edit by JILLIAN Arteaga on 06/28/24 13:49 UA Nitrite Negative Last Edit by Vishnu Coe [facility] on 06/28/24 13:49 UA Urobilinogen 0.2 mg/dL Last Edit by Vishnu Coe [facility] on 06/28/24 13:4 9 UA Protein 0 mg/dL Last Edit by Vishnu Coe [facility] on 06/28/24 13:49 UA pH 6.5 Last Edit by Vishnu Coe [facility] on 06/28/24 13:49 UA Blood 0 Rudi/uL Last Edit by Vishnu Coe [facility] on 06/28/24 13:49 UA Specific [place] 1.010 Last Edit by Vishnu Coe [facility] on 06/28/24 13: 49 UA Ketone Positive Last Edit by Vishnu Coe [facility] on 06/28/24 13:49 UA Bilirubin 0 mg/dL Last Edit by Vishnu Coe [facility] on 06/28/24 13:49 UA Glucose 0 mg/dL Last Edit by Vishnu Coe [facility] on 06/28/24 13:49 Results Reviewed Results Reviewed: Laboratory Last Values Urine pH (Auto) 6.5 06/28/24 13:47 Specific [place] (Auto) 1.010 06/28/24 13:47 Urine Protein (Auto) 0 mg/dL 06/28/24 13:47 Glucose (UA)(Auto) 0 mg/dL 06/28/24 13:47 Urine Ketones (Auto) Positive 06/28/24 13:47 Urine Blood (Auto) 0 Rudi/uL 06/28/24 13:47 Urine Nitrite (Auto) Negative 06/28/24 13:47 Urine Bilirubin (Auto) 0 mg/dL 06/28/24 13:47 Urine Urobilinogen (Auto) 0.2 mg/dL 06/28/24 13:47 Leukocyte Esterase (Auto) 0 Grace/uL 06/28/24 13:47 Date of Service: 06/12/23 EXAMINATION:? US RETROPERITONEAL COMPLETE (RENAL) CLINICAL INFORMATION: Frequency of micturition. COMPARISON:? Ultrasound abdomen complete 09/12/2016. FINDINGS:? RIGHT KIDNEY: 10.4 x 4.6 x 4.5 cm (SAG x AP x TRV). The kidney is normal in size, contour, and echogenicity. Renal cortical thickness is normal. No calculi or focal parenchymal lesions. No hydronephrosis. Right-sided pelvic fullness. LEFT KIDNEY: 10.5 x 6.8 x 5.9 cm (SAG x AP x TRV). The kidney is normal in size, contour, and echogenicity. Renal cortical thickness is normal. No calculi or focal parenchymal lesions. No hydronephrosis. BLADDER: Well distended and normal. Bilateral ureteral jets are demonstrated. Prevoid bladder volume is 437 mL. Postvoid bladder volume is 22.2 mL. IMPRESSION:? 1.? Right-sided pelvic fullness without nephrolithiasis. 2.? Postvoid bladder volume of 22.2 mL with visualization of the bilateral ureteral jets. Assessment & Plan Assessment & Plan (1) Detrusor overactivity: Code(s): N32.81 - Overactive bladder Category: Medical (2) OAB (overactive bladder): Code(s): N32.81 - Overactive bladder Category: Medical (3) Urinary urgency: Code(s): R39.15 - Urgency of urination Category: Medical (4) Urine stream spraying: Code(s): R39.198 - Other difficulties with micturition Category: Medical Plan Pt instructed to hold gemtesa. FU office cystoscopy Orders: Orders AMB Urinalysis Automated Today Z13.9 - Encounter for screening, unspecified Medications: Refilled vibegron (Gemtesa) 75 mg PO DAILY 30 tabs 7RF vibegron (Gemtesa) 75 mg PO DAILY 30 tabs 3RF Patient Instructions: The patient had an opportunity to ask questions regarding treatment plan. The patient expressed understanding and agreement with the above treatment plan. The patient is aware they should contact our office by phone for worsening of their current condition or the appearance of new symptoms. Compliance is encouraged with any medications and followup testing that is ordered. It is a privilege to be allowed the opportunity to participate in the urologic care of your patient. If you have any questions or concerns regarding treatment for the above conditions please do not hesitate to contact me. The office telephone contact is [phone]. This note is constructed in part using voice recognition software. While every effort has been made to ensure accuracy blasting entryman errors may have been included. Yours sincerely, Sergo Jackson MD Coding Level of Care Code Est Pt Level 4 (64578) Diagnoses Detrusor overactivity N32.81 OAB (overactive bladder) N32.81 Urinary urgency R39.15 Urine stream spraying R39.198 CPT Codes Post Residual Void - PVR CPT Code: 22087-Kqsq Void Residual by ultrasound ([id number])
== END 2024-06-28 14:05 | disposition home or self-care (01) ==
LOC: HO.HUSH 13:08
PROVIDERS: PCP Internal Medicine; Visit Provider Urology
DX: N32.81 Overactive bladder (principal); R39.15 Urgency of urination; R39.198 Other difficulties with micturition; Z13.9 Encounter for screening, unspecified
CPT/HCPCS: 99214

== ENCOUNTER → 2024-06-28 13:08 | Outpatient (BNVA) | payer OTHER, SELFPAY | PROVIDERS: PCP Internal Medicine; Visit Provider Urology | DX: N32.81 Overactive bladder (principal); R39.15 Urgency of urination; R39.198 Other difficulties with micturition | CPT/HCPCS: 51798; 81003; 99212 ==

== ENCOUNTER 2024-07-14 11:25 | Outpatient (AMB) | payer OTHER, SELFPAY ==
[2024-07-14 11:50] VITALS: BP 133/63; PULSE 60; O2SAT 95; BMI 43.0
--- NOTE | 2024-07-14 11:50 | A.OFFVIS_ITS ---
Vital Signs 07/14/24 11:50 Height 5 ft 3 in Weight 243 lb BMI 43.0 BP 133/63 Blood Pressure Location Lt brachial Position Sitting Pulse 60 Pulse Source Pulse Oximeter Pulse Oximetry (%) 95 Oxygen Delivery Method Room Air Intake Visit Reasons: Pill Count Allergies adhesive tape Allergy (Intermediate, Verified 07/14/24 11:50) skin breakdown Medication List - Last Reconciled 07/14/24 by Jonna Garcia cetirizine 10 mg PO DAILY PRN cholecalciferol (vitamin D3) (Vitamin D3) 2,000 units PO DAILY 90 days furosemide 10 mg (1/2 x 20 mg) PO QAM gabapentin 400 mg PO TID 30 days ipratropium bromide 2 sprays intranasal DAILY PRN ketotifen fumarate 0.025%(0.035%) drps ophthalmic (eye) magnesium oxide 400 mg PO DAILY 30 days metoprolol succinate ER 25 mg PO DAILY vsqaydhdpbsr-evm-gqyb-FA-vit K 45 mg iron- 800 mcg-120 mcg (Bariatric Multivitamins) 1 cap PO .QD triamcinolone acetonide 2 sprays intranasal DAILY valsartan 80 mg PO DAILY vibegron (Gemtesa) 75 mg PO DAILY vitamin A 2 caps PO DAILY walker As directed zinc 25 mg PO DAILY HPI Comments Details: Urvashi presents to the office today for follow up chronic pain and chronic opioid therapy management. Patient is prescribed Tramadol 50mg po BID as needed. Patient arrived today with the expectation of having 56 pills, she presented 55 pills which were counted in the presence of two staff members and returned to the patient in the original prescription bottle. This demonstrates responsible attitude toward patient's opioid medications. Pain is reported today as 5/10 and last dose of pain medication was taken at 08:00 this morning. Patient denies side effects including somnolence, constipation, itching, dyspnea, rash, dizziness or weakness. Today patient complaining of mid lower back pain, worse with bending, twisting, lifting and lying down. Also complaining of left hip pain. Since last visit she underwent replacement of her AICD. States she is still having some post surgical muscle pain and has scheduled follow up with Cardiology. Past visit with Dr Ratliff: Urvashi is a very pleasant 57 year old female who presents to the office for follow up chronic pain and chronic opioid therapy management. Last time she was in this office and she was prescribed tramadol 50 mg t.i.d.. She came today with excess of her pills. She brought to us 30 pills from November a and 20 pills from last month. She supposed to have no pills today in her possession. [facility] liver prescribed to much of the pills for her. We agreed that from now on I will be prescribing her to pills a day. We destroyed pills from November. That left her with 21 pills for this month and. I will restart her medication in 10 days from now which will be 05/09/2023. After we will establish that she is okay with his her medication prescriptions I will continue to see her once in 2 months for the appointments and pill counts. Patient denies any side effects including constipation, abdominal pain, somnolence, nausea, dizziness or falls. She previously had SCS trial with stimwave but did not tolerate, does not want to proceed with SCS at this time. Previously: She? went with me on transforaminal epidural spinal cord stimulator with stim wave technology.? After the procedure? she reported pain exacerbation in radicular distribution she reported numbness in left lower extremity.? During the procedure the insertion of the stimulating wires was quite difficult probably due to foraminal stenosis on those sites.? Her physical exam did not demonstrate any significant roots see below.? The CT scan which was performed to her in the emergency room did not demonstrate any hematoma or any peripheral nerve damage.? She went for EMG done by Dr. Whitfield.? Only peripheral neuropathy was found on EMG.? There were no acute radiculopathy secondary to needle penetration to the nerve roots.? The patient was treated with gabapentin and short course steroid therapy.? She reports that numbness is improving now.? She supposed to go for [employer] trial of spinal cord stimulator as we planned before...,.? [facility] Medical History Pain at surgical incision Urinary incontinence in female Stress incontinence Lumbar back pain with radiculopathy affecting left lower extremity GERD (gastroesophageal reflux disease) HTN (hypertension) Complex regional pain syndrome i of left lower limb Chronic pain syndrome Cardiac pacemaker in situ Cardiomyopathy Second degree AV block Allergies Osteoarthritis of left knee Spondylosis of lumbosacral spine with radiculopathy Back pain Surgical History History of hernia repair (~11/12/23) H/O gastric bypass Gastric bypass status for obesity Hx of cholecystectomy Hx of breast reduction, elective Hx of colonoscopy History of esophagogastroduodenoscopy (EGD) History of permanent cardiac pacemaker placement Family History Father Asthma Mother HTN (hypertension) Alzheimer disease Brother Cardiac pacemaker Sister Colon cancer Metastatic cancer Social History Household Members: None Housing: Apartment 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) Alcohol intake: former Comment: counts correct Patient Tobacco Use Status: Former Tobacco user Cigarette Packs Per Day: 0.5 e-Cigarette/Vaping Use: Never Used Advance Directives Date on File: 11/12/23 service: No 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al status: unemployed and disabled 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 Cognitive needs: No Hearing needs: No Vision needs: Yes Review of Systems Const All systems reviewed & are unremarkable except as noted in HPI and below Physical Exam Vital Signs: Last Vital Signs Pulse 60 07/14/24 11:50 BP 133/63 07/14/24 11:50 Pulse Ox 95 07/14/24 11:50 Oxygen Delivery Method Room Air 07/14/24 11:50 BMI result Body Mass Index 43.0 General: awake, alert, oriented. Answers questions appropriately. Fully engaged in examination. Skin: warm, dry, intact without visible rashes or lesions. HEENT: Normocephalic. Hearing intact. Cardiac: External chest normal in appearance. Respiratory: No cough, audible wheezing or stridor. Abdomen: without gross distension. MS: No obvious swelling or deformities. Able to transition from sit to stand unassisted. Left hip: Pain with internal/external rotation Tenderness to palpation midline lumbar vertebrae and lumbar paraspinal muscles. Decreased lumbar motion Facet loading positive SLR negative Neurological: Oriented to person, place, time and situation. Thought process intact. Ambulates with steady gait utilizing cane for assistance. Psychiatric: Appropriate mood and affect. Good judgment and insight. Const Other: Results Reviewed Results Reviewed: 11/05/2021 EXAMINATION: CT LUMBAR SPINE WITHOUT CONTRAST FINDINGS: The heights of the lumbar vertebrae are well-maintained. Subtle grade 1 anterolisthesis of L4 over L5. Mild facet joint arthritic changes are noted at the lower lumbar spine. Posterior appendages are intact.? No evidence of any fracture present. No evidence of any paraspinal, soft tissue hematoma present. The visualized retroperitoneum grossly appears unremarkable. Significant motion artifacts are present. IMPRESSION: No CT evidence of any compression fracture or paraspinal hematoma. Mild grade 1 anterolisthesis of L4 over L5 and facet joint arthritic changes at lower lumbar spine. Assessment & Plan Assessment & Plan (1) Hip pain, left: Code(s): M25.552 - Pain in left hip Category: Medical (2) Lumbar pain: Code(s): M54.5 - Low back pain Category: Medical (3) Osteoarthritis of left hip: Code(s): M16.12 - Unilateral primary osteoarthritis, left hip Category: Medical Qualifiers: Osteoarthritis type: primary Qualified Code(s): M16.12 - Unilateral primary osteoarthritis, left hip (4) Spondylosis of lumbosacral spine with radiculopathy: Code(s): M47.27 - Other spondylosis with radiculopathy, lumbosacral region Category: Medical (5) Chronic pain syndrome: Code(s): G89.4 - Chronic pain syndrome Category: Medical (6) Complex regional pain syndrome i of left lower limb: Code(s): G90.522 - Complex regional pain syndrome I of left lower limb Category: Medical Plan X-ray left hip and lumbar spine ordered for evaluation Patient declines this time. Declines further discussing interventional management at this time. She will let us know if the pain worsens and she is ready to proceed with alternative treatment options. Masspat was reviewed and without concerns. No obvious signs of diversion, abuse or misuse of the opioid medications. Refill sent for Tramadol 50mg po BID prn with 1 refill. Patient to follow-up in the office in 2 months, sooner if needed. All questions and concerns have been answered and patient agrees with the plan. Stimwave trial L2-L3 L3-L4 done previously but patient reported increased numbness to lateral left thigh. Post procedure CT and EMG were completed which did not demonstrate evidence of acute pathology or radiculopathy. EMG did show evidence of peripheral neuropathy. Due to the side effects, neuropathy and interaction with her pacemaker she does not want to proceed with SCS at this time. Orders: Orders XR lumbar spine 4V min Today M54.5 - Low back pain XR hip LT w PEL1V Today M25.552 - Pain in left hip Medications: Refilled tramadol 50 mg PO BID PRN 60 tabs 1RF pain 30 days Coding Level of Care Code Est Pt Level 4 (37706) Complex EM visit Add On G2211 Diagnoses Hip pain, left M25.552 Lumbar pain M54.5 Primary osteoarthritis of left hip M16.12 Osteoarthritis type: primary Spondylosis of lumbosacral spine with radiculopathy M47.27 Chronic pain syndrome G89.4 Complex regional pain syndrome i of left lower limb G90.522
== END 2024-07-14 12:20 | disposition home or self-care (01) ==
PROVIDERS: PCP Internal Medicine; Visit Provider Registered Nurse Emergency
DX: M25.552 Pain in left hip (principal); M54.50 Low back pain, unspecified; M16.12 Unilateral primary osteoarthritis, left hip; M47.27 Other spondylosis with radiculopathy, lumbosacral region; G89.4 Chronic pain syndrome; G90.522 Complex regional pain syndrome I of left lower limb
CPT/HCPCS: 99214; G2211

== ENCOUNTER → 2024-07-14 11:25 | Outpatient (BNVA) | payer OTHER, SELFPAY | PROVIDERS: PCP Internal Medicine; Visit Provider Registered Nurse Emergency | DX: M16.12 Unilateral primary osteoarthritis, left hip (principal); M47.27 Other spondylosis with radiculopathy, lumbosacral region; G89.4 Chronic pain syndrome; G90.522 Complex regional pain syndrome I of left lower limb; Z51.81 Encounter for therapeutic drug level monitoring; Z79.891 Long term (current) use of opiate analgesic | CPT/HCPCS: 99212 ==

== ENCOUNTER → 2024-07-19 09:55 | Outpatient (REF) | payer OTHER, SELFPAY ==
--- NOTE | 2024-07-19 09:58 | CA_ITS ---
Transthoracic Echocardiogram Patient (Last, First, Middle): Brian Kirk Rick Landin Gender: Female Date of : 1965 Age: 58 Procedure Date: 07/19/2024 Procedure Type: Transthoracic Echocardiogram Location: OP Height: 160. cm Weight: 108.86 kg BSA: 2.09 m2 Heart Rate: 60 bpm BP: 122 / 70 mmHg Data Specialist: LYNNE Referring MD: Gabriel Salcedo MD Communications Project Manager: Gabriel Salcedo MD Symptoms: I42.9 - Cardiomyopathy, unspecified Study Quality: Fair, Lmited by order ECG Rhythm: Sinus Conclusions: - Low normal LV ejection fraction at 50-55% with pseudonormal filling pattern Findings Left Ventricle Normal left ventricular cavity size. There is normal left ventricular wall thickness. The left ventricular systolic function is low normal. The visually estimated ejection fraction is between 50-55%. Spectral Doppler is indicative of a pseudonormal filling pattern. E/E prime ratio is between 8 and 15 consistent with indeterminate filling pressures. Prior Study Comparison Changes noted compared to prior study dated: 03/08/2024. LV systolic function has improved Measurements 2D Linear Measurements IVSd: 1.08 0.6-0.9/0.6-1.0 cm LVIDd: 4.81 3.9-5.3/4.2-5.9 cm LVIDd Index: 2.30 2.4-3.2/2.2-3.1 cm/m2 LVIDs: 3.30 2.0-3.6 cm LVPWd: 0.94 0.7-1.1 cm LA Diam: 3.90 2.7-3.8/3.0-4.0 cm LAIDs Index: 1.87 1.5-2.3 cm/m2 LV Mass: 215.62 67-162/88-224 g LV Mass Index: 103.17 43-95/49-115 g/m2 LVOT Diam: 2.00 3.0+(-)1.3 cm 2D Systolic Function EF 4C: 53.70 >55% EF 2C: 57.50 >55% EF BiP: 55.40 >55% Mitral Valve MV Pk E: 1.19 MV PK A: 1.11 MV Decel Time: 289.00 E/A: 1.10 E'Lateral: 8.27 E'Medial: 8.16 E/E' Med: 14.60 E/E' Lat: 14.40 PHT: 85.00 MVA PHT: 2.59 Decel Beadle: 4.13 LVOT LVOT Pk Wilfredo: 1.27 LVOT Mn Wilfredo: 0.88 LVOT VTI: 0.28 LVOT Pk Grad: 6.00 LVOT Mn Grad: 4.00 LVOT Diam: 2.00 LVOT Area: 3.14 Diastolic Function MV Pk E: 1.19 MV Pk A: 1.11 E/A: 1.10 E'Medial: 8.16 E/E' Med: 14.60 E' Laterial: 8.27 E/E' Lat: 14.40 Updated in Other Vendor System with Status of Final Gabriel Salcedo MD electronically signed on 07/20/2024 11:58:15 AM with status of Final
== END ==
LOC: HO.CARD 09:55
PROVIDERS: Absent Provider Registered Nurse Emergency; PCP Internal Medicine; Visit Provider Internal Medicine Cardiovascular Disease
DX: I42.9 Cardiomyopathy, unspecified (principal); M54.50 Low back pain, unspecified; M25.552 Pain in left hip
CPT/HCPCS: 72110; 73502; 93308

== ENCOUNTER → 2024-07-19 09:58 | Outpatient (BNV) | payer OTHER, SELFPAY | PROVIDERS: Absent Provider Registered Nurse Emergency; PCP Internal Medicine; Visit Provider Internal Medicine Cardiovascular Disease | DX: I42.8 Other cardiomyopathies (principal) | CPT/HCPCS: 93308; 93321; 93325 ==

== ENCOUNTER 2024-08-12 14:02 | Outpatient (AMB) | payer OTHER, SELFPAY ==
[2024-08-12 14:05] VITALS: BP 126/90; PULSE 61; O2SAT 98; BMI 46.1
--- NOTE | 2024-08-12 14:05 | MHC.OFFVIS ---
Vital Signs 08/12/24 14:05 Height 5 ft 3 in Weight 260 lb BMI 46.1 BP 126/90 H Blood Pressure Location Rt brachial Position Sitting Pulse 61 Pulse Oximetry (%) 98 Oxygen Delivery Method Room Air Intake Visit Reasons: Follow up Home Health Physical Therapist Required: Yes Home Health Physical Therapist Name: Mayo [id number] Accompanied by: Self / Same As Patient Allergies adhesive tape Allergy (Intermediate, Verified 08/12/24 14:08) skin breakdown Medication List - Last Reconciled 08/12/24 by Lavon Monique PA-C cetirizine 10 mg PO DAILY PRN cholecalciferol (vitamin D3) (Vitamin D3) 2,000 units PO DAILY 90 days furosemide 10 mg (1/2 x 20 mg) PO QAM gabapentin 400 mg PO TID 30 days ipratropium bromide 2 sprays intranasal DAILY PRN ketotifen fumarate 0.025%(0.035%) drps ophthalmic (eye) magnesium oxide 400 mg PO DAILY 30 days metoprolol succinate ER 25 mg PO DAILY gkeutwkbusyy-hce-pcyd-FA-vit K 45 mg iron- 800 mcg-120 mcg (Bariatric Multivitamins) 1 cap PO .QD tramadol 50 mg PO BID PRN 30 days triamcinolone acetonide 2 sprays intranasal DAILY valsartan 80 mg PO DAILY vibegron (Gemtesa) 75 mg PO DAILY vitamin A 2 caps PO DAILY walker As directed zinc 25 mg PO DAILY HPI Comments Details: 57 y/o female patient presents for follow up of of MARVEL and memory loss. She feels better using the CPAP. Interval Medical History: Jun 2024 Pacemaker leads adjusted at [facility]. The CPAP compliance and therapy response (05/12/24-08/11/24) reviewed. She is on APAP [id number]. The usage days 54/ and 60% the total average usage 2 hrs 58 min. The median pressure was 8.4 and the AHI was 1.1/hr. She cleans the mask, tubing and changes filters as needed. She is still having difficulty falling asleep, due to joint pain, shoulders, knees and back. She reports forgetfulness and memory loss. She frequently forgets what she is doing in midst of tasks and has to write everything down. Denies confusion or declining daily function. She states that her memory was not great and has been worsened over the last 4 years. She can do all ADLs and taking care of finances, and has a [employer] come in to help her. She does not drive. Pt states that her migraines have been better, not having migraine as frequently. Vision no changes. She has tinnitus and constant ringing in the ears, vertigo, feels off balance and difficulty walking. Mood and diet is okay. Sees a psychologist for depression. [facility] Medical History Pain at surgical incision Urinary incontinence in female Stress incontinence Lumbar back pain with radiculopathy affecting left lower extremity GERD (gastroesophageal reflux disease) HTN (hypertension) Complex regional pain syndrome i of left lower limb Chronic pain syndrome Cardiac pacemaker in situ Cardiomyopathy Second degree AV block Allergies Osteoarthritis of left knee Spondylosis of lumbosacral spine with radiculopathy Back pain Surgical History History of hernia repair (~11/12/23) H/O gastric bypass Gastric bypass status for obesity Hx of cholecystectomy Hx of breast reduction, elective Hx of colonoscopy History of esophagogastroduodenoscopy (EGD) History of permanent cardiac pacemaker placement Family History Father Asthma Mother HTN (hypertension) Alzheimer disease Brother Cardiac pacemaker Sister Colon cancer Metastatic cancer Social History Household Members: None Housing: Apartment Do you presently have visiting nurse or other home services: Yes ([employer]) Alcohol intake: former Comment: counts correct Patient Tobacco Use Status: Former Tobacco user Cigarette Packs Per Day: 0.5 e-Cigarette/Vaping Use: Never Used Advance Directives Date on File: 11/12/23 service: No 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al status: unemployed and disabled 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 Cognitive needs: No Hearing needs: No Vision needs: Yes Review of Systems Const All systems reviewed & are unremarkable except as noted in HPI and below Physical Exam Vital Signs: Last Vital Signs Pulse 61 08/12/24 14:05 BP 126/90 H 08/12/24 14:05 Pulse Ox 98 08/12/24 14:05 Oxygen Delivery Method Room Air 08/12/24 14:05 BMI result Body Mass Index 46.1 Const General: cooperative, healthy appearing and no acute distress Nutritional Appearance: obese (BMI is 46 ) other Orientation/consciousness: patient oriented x3 Limitations: ambulation with walker Eyes Pupils: Equal, round and reactive pupils present Resp Effort & Inspection: normal respiratory effort and able to speak in complete sentences Neuro General: patient oriented x3 Cranial nerves: Yes CN's II-XII intact bilaterally, Yes Equal, round and reactive pupils present, Yes Normal accommodation reflex present, Yes Bilaterally intact EOM present, Yes Normal facial strength present, Yes Midline tongue present, Yes Ability to bilaterally rotate head present and Yes Ability to bilaterally elevate shoulders present Gait exam (Neuro): Assistive device used Motor exam (neuro): Abnormal motor strength present Sensory Exam: Abnormal lower extremity sensory exam (L. Lower Ext pain w/ resistance.) Deep tendon reflexes (DTR's): Right triceps reflex intensity grade: 2+, Left triceps reflex intensity grade: 2+, Rt Biceps (C5, C6): 2+, Left biceps reflex intensity grade: 2+, Right brachioradialis reflex intensity grade: 2+, Left brachioradialis reflex intensity grade: 2+, Right patellar reflex intensity grade: 2+ and Left patellar reflex intensity grade: 2+ Results Reviewed Results Reviewed: The CPAP compliance and therapy response (05/12/24-08/11/24) reviewed. She is on APAP [id number]. The usage days 54/90 and 60% the total average usage 2 hrs 58 min. The median pressure was 8.4 and the AHI was 1.1/hr. Assessment & Plan Assessment & Plan (1) Amnesia memory loss: Code(s): R41.3 - Other amnesia Category: Medical (2) Memory change: Code(s): R41.3 - Other amnesia Category: Medical (3) Obstructive sleep apnea: Code(s): G47.33 - Obstructive sleep apnea (adult) (pediatric) Category: Medical (4) Vertigo: Code(s): R42 - Dizziness and giddiness Category: Medical (5) Balance disorder: Code(s): R26.89 - Other abnormalities of gait and mobility Category: Medical (6) H/O tinnitus: Code(s): Z86.69 - Personal history of other diseases of the nervous system and sense organs Category: Medical Plan Stressed compliance, use CPAP nightly and more than 4 hrs, she is having some difficulty with daily use due to her resent pacemaker lead adjustment procedure at [facility]. Advised patient to try sleep more, 7-8 hours a day and use CPAP during daily naps. Encouraged patient to increase physical activity. Vertigo: PT with [facility] has Vestibular Therapy for Balance and Gait strengthening. PT for Accupuncturist for Tinnitus. Orders: Orders PT Evaluation and Treatment Today G47.33 - Obstructive sleep apnea (adult) (pediatric), R26.89 - Other abnormalities of gait and mobility, R42 - Dizziness and giddiness Medications: Refilled vitamin A 2 caps PO DAILY 180 caps 3RF Coding Level of Care Code Tele Est Pt Level 4 (78193) Diagnoses Amnesia memory loss R41.3 Memory change R41.3 Obstructive sleep apnea G47.33 Vertigo R42 Balance disorder R26.89 H/O tinnitus Z86.69 Time Spent (min) 35 Comment Recovering from Pacemaker adjustment
== END 2024-08-12 15:04 | disposition home or self-care (01) ==
PROVIDERS: PCP Internal Medicine; Visit Provider Psychiatry & Neurology Neurology
DX: R41.3 Other amnesia (principal); G47.33 Obstructive sleep apnea (adult) (pediatric); R42 Dizziness and giddiness; R26.89 Other abnormalities of gait and mobility; Z86.69 Personal history of other diseases of the nervous system and sense organs
CPT/HCPCS: 99214

== ENCOUNTER 2024-09-08 12:47 | Outpatient (AMB) | payer OTHER, SELFPAY ==
--- NOTE | 2024-09-08 12:50 | MHC.OFFVIS ---
Vital Signs 09/08/24 12:52 Height 5 ft 3 in Weight 261 lb BMI 46.2 BP 133/79 Blood Pressure Location Lt radial Position Sitting Respiration 17 Pulse 91 Pulse Source Pulse Oximeter Pulse Oximetry (%) 96 Oxygen Delivery Method Room Air Intake Visit Reasons: PILL COUNT Intake Note: Pt states she last took tramadol 09/08/24 @ 8:47am Allergies adhesive tape Allergy (Intermediate, Verified 09/08/24 12:53) skin breakdown Medication List - Last Reconciled 09/08/24 by Chelsy Graff LPN cetirizine 10 mg PO DAILY PRN cholecalciferol (vitamin D3) (Vitamin D3) 2,000 units PO DAILY 90 days furosemide 10 mg (1/2 x 20 mg) PO QAM gabapentin 400 mg PO TID 30 days ipratropium bromide 2 sprays intranasal DAILY PRN ketotifen fumarate 0.025%(0.035%) drps ophthalmic (eye) magnesium oxide 400 mg PO DAILY 30 days metoprolol succinate ER 25 mg PO DAILY 90 days [id number]-jyz-igta-FA-vit K 45 mg iron- 800 mcg-120 mcg (Bariatric Multivitamins) 1 cap PO .QD tramadol 50 mg PO BID PRN 30 days triamcinolone acetonide 2 sprays intranasal DAILY valsartan 80 mg PO DAILY vibegron (Gemtesa) 75 mg PO DAILY vitamin A 2 caps PO DAILY walker As directed zinc 25 mg PO DAILY HPI Comments Details: Urvashi presents to the office today for follow up chronic pain and chronic opioid therapy management. Patient is prescribed Tramadol 50mg po BID as needed. Patient arrived today with the expectation of having 0 pills, she presented 13 pills which were counted in the presence of two staff members and returned to the patient in the original prescription bottle. This demonstrates responsible attitude toward patient's opioid medications. Pain is reported today as 3/10 and last dose of pain medication was taken at 08:47 this morning. Patient denies side effects including somnolence, constipation, itching, dyspnea, rash, dizziness or weakness. Past visit with Dr Ratliff: Urvashi is a very pleasant 57 year old female who presents to the office for follow up chronic pain and chronic opioid therapy management. Last time she was in this office and she was prescribed tramadol 50 mg t.i.d.. She came today with excess of her pills. She brought to us 30 pills from [facility] and 20 pills from last month. She supposed to have no pills today in her possession. [facility] prescribed to much of the pills for her. We agreed that from now on I will be prescribing her to pills a day. We destroyed pills from November. That left her with 21 pills for this month and. I will restart her medication in 10 days from now which will be 05/09/2023. After we will establish that she is okay with his her medication prescriptions I will continue to see her once in 2 months for the appointments and pill counts. Patient denies any side effects including constipation, abdominal pain, somnolence, nausea, dizziness or falls. She previously had SCS trial with stimwave but did not tolerate, does not want to proceed with SCS at this time. Previously: She? went with me on transforaminal epidural spinal cord stimulator with stim wave technology.? After the procedure? she reported pain exacerbation in radicular distribution she reported numbness in left lower extremity.? During the procedure the insertion of the stimulating wires was quite difficult probably due to foraminal stenosis on those sites.? Her physical exam did not demonstrate any significant roots see below.? The CT scan which was performed to her in the emergency room did not demonstrate any hematoma or any peripheral nerve damage.? She went for EMG done by Dr. Whitfield.? Only peripheral neuropathy was found on EMG.? There were no acute radiculopathy secondary to needle penetration to the nerve roots.? The patient was treated with gabapentin and short course steroid therapy.? She reports that numbness is improving now.? She supposed to go for [employer] trial of spinal cord stimulator as we planned before...,.? [facility] Medical History Pain at surgical incision Urinary incontinence in female Stress incontinence Lumbar back pain with radiculopathy affecting left lower extremity GERD (gastroesophageal reflux disease) HTN (hypertension) Complex regional pain syndrome i of left lower limb Chronic pain syndrome Cardiac pacemaker in situ Cardiomyopathy Second degree AV block Allergies Osteoarthritis of left knee Spondylosis of lumbosacral spine with radiculopathy Back pain Surgical History History of hernia repair (~11/12/23) H/O gastric bypass Gastric bypass status for obesity Hx of cholecystectomy Hx of breast reduction, elective Hx of colonoscopy History of esophagogastroduodenoscopy (EGD) History of permanent cardiac pacemaker placement Family History Father Asthma Mother HTN (hypertension) Alzheimer disease Brother Cardiac pacemaker Sister Colon cancer Metastatic cancer Social History Household Members: None Housing: Apartment Do you presently have 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) Alcohol intake: former Comment: counts correct Patient Tobacco Use Status: Former Tobacco user Cigarette Packs Per Day: 0.5 e-Cigarette/Vaping Use: Never Used Advance Directives Date on File: 11/12/23 service: No 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al status: unemployed and disabled 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 Cognitive needs: No Hearing needs: No Vision needs: Yes Review of Systems Const All systems reviewed & are unremarkable except as noted in HPI and below Physical Exam Vital Signs: Last Vital Signs Pulse 91 09/08/24 12:52 Resp 17 09/08/24 12:52 BP 133/79 09/08/24 12:52 Pulse Ox 96 09/08/24 12:52 Oxygen Delivery Method Room Air 09/08/24 12:52 BMI result Body Mass Index 46.2 General: awake, alert, oriented. Answers questions appropriately. Fully engaged in examination. Skin: warm, dry, intact without visible rashes or lesions. HEENT: Normocephalic. Hearing intact. Cardiac: External chest normal in appearance. Respiratory: No cough, audible wheezing or stridor. Abdomen: without gross distension. MS: No obvious swelling or deformities. Able to transition from sit to stand unassisted. Neurological: Oriented to person, place, time and situation. Thought process intact. Ambulates with steady gait utilizing cane for assistance. Psychiatric: Appropriate mood and affect. Good judgment and insight. Const Other: Results Reviewed Results Reviewed: 11/05/2021 EXAMINATION: CT LUMBAR SPINE WITHOUT CONTRAST FINDINGS: The heights of the lumbar vertebrae are well-maintained. Subtle grade 1 anterolisthesis of L4 over L5. Mild facet joint arthritic changes are noted at the lower lumbar spine. Posterior appendages are intact.? No evidence of any fracture present. No evidence of any paraspinal, soft tissue hematoma present. The visualized retroperitoneum grossly appears unremarkable. Significant motion artifacts are present. IMPRESSION: No CT evidence of any compression fracture or paraspinal hematoma. Mild grade 1 anterolisthesis of L4 over L5 and facet joint arthritic changes at lower lumbar spine. Assessment & Plan Assessment & Plan (1) Hip pain, left: Code(s): M25.552 - Pain in left hip Category: Medical (2) Lumbar pain: Code(s): M54.5 - Low back pain Category: Medical (3) Osteoarthritis of left hip: Code(s): M16.12 - Unilateral primary osteoarthritis, left hip Category: Medical Qualifiers: Osteoarthritis type: primary Qualified Code(s): M16.12 - Unilateral primary osteoarthritis, left hip (4) Spondylosis of lumbosacral spine with radiculopathy: Code(s): M47.27 - Other spondylosis with radiculopathy, lumbosacral region Category: Medical (5) Chronic pain syndrome: Code(s): G89.4 - Chronic pain syndrome Category: Medical (6) Complex regional pain syndrome i of left lower limb: Code(s): G90.522 - Complex regional pain syndrome I of left lower limb Category: Medical Plan Masspat was reviewed and without concerns. No obvious signs of diversion, abuse or misuse of the opioid medications. Refill sent for Tramadol 50mg po BID prn with 1 refill. Patient to follow-up in the office in 2 months, sooner if needed. All questions and concerns have been answered and patient agrees with the plan. Stimwave trial L2-L3 L3-L4 done previously but patient reported increased numbness to lateral left thigh. Post procedure CT and EMG were completed which did not demonstrate evidence of acute pathology or radiculopathy. EMG did show evidence of peripheral neuropathy. Due to the side effects, neuropathy and interaction with her pacemaker she does not want to proceed with SCS at this time. Medications: Refilled tramadol 50 mg PO BID PRN 60 tabs 1RF pain 30 days Coding Level of Care Code Est Pt Level 4 (56138) Complex EM visit Add On G2211 Diagnoses Hip pain, left M25.552 Lumbar pain M54.5 Primary osteoarthritis of left hip M16.12 Osteoarthritis type: primary Spondylosis of lumbosacral spine with radiculopathy M47.27 Chronic pain syndrome G89.4 Complex regional pain syndrome i of left lower limb G90.522
--- OUTSIDE RECORDS SUMMARY | 2024-09-08 12:50 | XMS_ITS | Continuity of Care Document ---
Author Organization [facility] Address [address] [place] [address] Phone Care Team Providers Care Cleat Feeder Name Role Phone Jonna Garcia Unavailable Unavailable Allergies, Adverse Reactions, Alerts Substance Reaction Status Criticality No Known Allergies Active No Inform ation Medications Medication Instructions Dosage Effective Dates (start - stop) Status Comments -LISINOPRIL 10MG (B) TAKE 1 TABLET BY OR AL ROUTE EVERY DAY - Active -FLUOXETINE 10MG (B) TAKE 1 CAPSULE BY MOUTH ONCE A DAY - Active -NAPROXEN 500MG (B) TAKE 1 TABLET BY DAYAN TH 2 TIMES EVERY DAY WITH FOOD - Active melatonin 3 mg capsule take 1 capsule 30-60 minutes before bed time - Active Vitamin D3 25 mcg (1,000 unit) capsule take 1 capsule by mouth daily - Active Procedures Procedure Date EYE EXAM & TREATMENT OFFICE/OUTPATIENT VISIT, NEW TOBACCO NON-USER SYST BP LT 130 MM HG Sys bp less 140 DIAST BP < 80 MM HG Vela bp less 90 WEIGHT RECORDED BODY MASS INDEX DOCD MED LIST DOCD IN RCRD OFFICE/OUTPATIENT VISIT, EST TOBACCO NON-USER SYST BP LT 130 MM HG Sys bp less 140 DIAST BP < 80 MM HG Vela bp less 90 DSCHRG MED/CURRENT MED MERGE WEIGHT RECORDED BODY MASS INDEX DOCD MED LIST DOCD IN RCRD OFFICE/OUTPATIENT VISIT, NEW OFFICE/OUTPATIENT VISIT, EST URINALYSIS NONAUTO W/O SCOPE OFFICE/OUTPATIENT VISIT, EST OFFICE/OUTPATIENT VISIT, EST OFFICE/OUTPATIENT VISIT, EST OFFICE/OUTPATIENT VISIT, EST OFFICE/OUTPATIENT VISIT, EST OFFICE/OUTPATIENT VISIT, EST OFFICE/OUTPATIENT VISIT, EST OFFICE/OUTPATIENT VISIT, EST GLUCOSE BLOOD TEST HEMOGLOBIN A1C TEST, GLYCATED OFFICE/OUTPATIENT VISIT, EST OFFICE/OUTPATIENT VISIT, EST OFFICE/OUTPATIENT VISIT, EST OFFICE/OUTPATIENT VISIT, EST Advance Directives Directive Yes / No Effective Date File Name No Information Encounters Encounter Description Practice Location Reason(s) For Visit Diagnoses Date Provider Providers Copied on Encounter [facility], [address] [place] [address], [id number], [place] tel:[phone] [facility] x blurry va (chief complaint) Combined forms of age-related cataract, bilateral 5 Jose Coyle. [address], [place], [place], [id number], [place]. tel:[phone] [facility], [address] [place] [address], [id number], [place] tel:[phone] [facility] No Information 3 Lucas Montalvo. [address], [id number], [place]. tel:[phone] [facility], [address] [place] [address], [id number], [place] tel:[phone] [facility] No Information 3 Lucas Montalvo. [address] [facility] [address], [id number], [place]. tel:[phone] OFFICE/OUTPA TIENT VISIT, [facility] [place], [address] [place] [address], [id number], [place] tel:[phone] [facility] Growth (chief complaint)Whit wth (chief complaint) Peroneal ganglion cystChronic pain of right ankle 3 Michael Frankel. [address] [facility] [address], [id number], [place]. tel:[phone] OFFICE/OUTPA TIENT VISIT, [facility], [address] [place] [address], [id number], [place] tel:[phone] [facility] Follow Up of Depression (chief complaint)Fol low Up of hypertension (chief complaint) Body mass index (BMI) 35.0-35.9, adultDietary counseling and surveillanceE ssential hypertensionM oderate major depression 3 Lucas Montalvo. [address] [facility] [address], [id number], [place]. tel:[phone] [facility], [address] [place] [address], [id number], [place] tel:[phone] [facility] Vitamin D insufficiency 3 Lucas Montalvo. [address] [facility] [address], [id number], [place]. tel:[phone] OFFICE/OUTPA TIENT VISIT, [facility] [place], [address] [place] [address], [id number], [place] tel:[phone] [facility] hypertension (chief complaint)dep ression (chief complaint) Body mass index (BMI) 34.0-34.9, adultDietary counseling and surveillanceM oderate major depressionEss ential hypertensionB reast cancer screening 3 Dillonlianenav Isabele. [address], [id number], [place]. tel:[phone] [facility], [address] [place] [address], [id number], [place] tel:[phone] [place] [address] Degenerative lumbar discRetrolist hesis of vertebrae 2 No Information OFFICE/OUTPA TIENT VISIT, [facility], [address] [place] [address], [id number], [place] tel:[phone] [facility] back pain (chief complaint) Body mass index (BMI) 35.0-35.9, adultChronic left-sided low back pain with left-sided sciatica 2 [facility]. [address], [place], [id number], [place]. tel:[phone] OFFICE/OUTPA TIENT VISIT, [facility], [address] [place] [address], [id number], [place] tel:[phone] [facility] UTI (chief complaint) Body mass index (BMI) 35.0-35.9, adultCystitis Essential (primary) hypertension 2 [facility] [address], [id number], [place]. tel:[phone] OFFICE/OUTPA TIENT VISIT, [facility], [address] [place] [address], [id number], [place] tel:[phone] [facility] hypertension (chief complaint) Body mass index (BMI) 35.0-35.9, adultEssentia l (primary) hypertension 0 No Information OFFICE/OUTPA TIENT VISIT, [facility], [address] [place] [address], [id number], [place] tel:[phone] [facility] hypertension (chief complaint) Body mass index (BMI) 35.0-35.9, adultHyperlip idemia, unspecified hyperlipidemi a typeEssential (primary) hypertension 9 No Information OFFICE/OUTPA TIENT VISIT, [facility], [address] [place] [address], [id number], [place] tel:[phone] [facility] hypertension (chief complaint)ER Follow Up (chief complaint)Add itional Information (chief complaint) Body mass index (BMI) 35.0-35.9, adultEssentia l (primary) hypertensionI ntermittent palpitations 9 No Information [facility], [address] [place] [address], [id number], [place] tel:[phone] [facility] Abnormal mammogram of right breast 9 No Information OFFICE/OUTPA TIENT VISIT, [facility], [address] [place] [address], [id number], [place] tel:[phone] [facility] Follow Up of Weight management (chief complaint)Add itional info (chief complaint) Body mass index (BMI) 35.0-35.9, adultHyperlip idemia, unspecified hyperlipidemi a typeObesity (BMI 30-39.9) 9 No Information OFFICE/OUTPA TIENT VISIT, [facility], [address] [place] [address], [id number], [place] tel:[phone] [facility] annual exam (chief complaint) Body mass index (BMI) 35.0-35.9, adultEncntr for slip tender exam (general) (routine) w/o abn findingsCervi hannah cancer screeningBrea st cancer screeningVagi nal discharge 9 No Information OFFICE/OUTPA TIENT VISIT, [facility], [address] [place] [address], [id number], [place] tel:[phone] [facility] Ocular Discomfort (chief complaint) Peripheral pterygium, progressive, bilateral 9 Salomon Marcelo. [address] [place], [place], [id number], [place]. tel:[phone] OFFICE/OUTPA TIENT VISIT, [facility], [address] [place] [address], [id number], [place] tel:[phone] [facility] Obesity (chief complaint)Ski n lesion (chief complaint) Body mass index (BMI) 36.0-36.9, adultColon cancer screeningObes ity (BMI 30-39.9)Vener eal disease screeningNume zelalem skin molesConstipa tion, unspecified constipation typeEssential (primary) hypertension 9 No Information OFFICE/OUTPA TIENT VISIT, [facility], [address] [place] [address], [id number], [place] tel:[phone] [facility] Weight Management (chief complaint)Obe sity (chief complaint) PrediabetesBo dy mass index (BMI) 36.0-36.9, adultPterygiu m of both eyesObesity (BMI 30-39.9) 9 No Information OFFICE/OUTPA TIENT VISIT, [facility], [address] [place] [address], [id number], [place] tel:[phone] [facility] hypertension (chief complaint) Body mass index (BMI) 29.0-29.9, adultGERD with esophagitisEn counter for screening for nutritional disorderEssen tial (primary) hypertensionL eft anterior knee pain 8 No Information OFFICE/OUTPA TIENT VISIT, [facility], [address] [place] [address], [id number], [place] tel:[phone] [facility] Follow up on lab test(s) (chief complaint) Body mass index (BMI) 29.0-29.9, adultEssentia l (primary) hypertensionP rediabetesEle vated LDL cholesterol levelVitamin D deficiency No Information OFFICE/OUTPA TIENT VISIT, EST [facility], [address] [place] [address], [place], [place], [id number], [place] tel:[phone] [facility] [place] est care (chief complaint)hyp ertension (chief complaint)hyp erlipidemia (chief complaint)jaw cracking (chief complaint) Adult general medical examDiabetes mellitus screeningEnco unter for screening for cardiovascula r disordersEnco unter for screening for lipoid disordersEnco unter for screening for nutritional disorderEncou nter for screening for other suspected endocrine disorderEncou nter for screening for malignant neoplasm of colonBody mass index (BMI) 29.0-29.9, adultEssentia l (primary) hypertensionT MJ click 8 No Information Family History Family Member Type Diagnosis Age At Onset Mother Problem (finding) hypertension Payers Payer name Insurance type Covered alliance party ID Authoriza tion(s) No Information Social History Type Description Quantity Date Captured Comments Alcohol Use Details Unknown Caffeine Use Details Unknown Tobacco Use Status No Information Smoking Status No Information Sex Female Sexual Orientation Straight or heterosexual Aug Gender Identity Female Chief Complaint And Reason For Visit From encounter dated '09/07/2024 09:15'. x blurry va (chief complaint). Description: Ou not wearing specs, states lids bother her va, also states ptery in way of va os, couldn't get AR in OS today.. Medications for hyper tension no pcp. Reason For Referral Reason For Referral No Information Plan Of Treatment Date Type Action Status Goal Td vaccine. Due on 25 due Goal Lipid panel. Due on 028 due Goal Influenza vaccin e. Due on due Goal Hep C Ab w/Rflx PCR Genotype,LIPA. Due on due Goal Hep C Ab. Due on due Goal CT-Colonography. Due on due Goal Hepatitis Panel (incl Hep A Tot, Hep B Tot) w/Rflx. Due on due Goal FIT. Due on due Goal Substance Abuse Screen. Due on due Goal Vision Screen. Due on due Goal Tobacco Use Scre ening. Due on due Goal Unhealthy drug u se screening. Due on due Goal FIT-DNA. Due on due Goal Hep C Ab w/Rflx to Hep C RNA, Quant, RT-PCR. Due on due Goal Zoster vaccine ( ). Due on due Goal Depression scree kathleen. Due on due Goal Zoster vaccine. Due on due Goal Hepatitis C scre ening. Due on due Goal Colonoscopy. Due on 020 due Goal FOBT. Due on due Goal Tdap. Due on due Goal Sigmoidoscopy. Due on due Goal Sigmoidoscopy. Due on due Goal Hep C Ab w/Rflx PCR Genotype,LIPA. Due on due Goal Depression scree kathleen. Due on due Goal Hepatitis C scre ening. Due on due Goal Hep C Ab w/Rflx to Hep C RNA, Quant, RT-PCR. Due on due Goal Substance Abuse Screen. Due on due Goal Zoster vaccine ( 1st). Due on due Goal Hep C Ab. Due on due Goal Td vaccine. Due on due Goal Tdap. Due on due Goal FOBT. Due on due Goal Unhealthy drug u se screening. Due on due Goal Vision Screen. Due on due Goal Hepatitis Panel (incl Hep A Tot, Hep B Tot) w/Rflx. Due on due Goal Influenza vaccin e. Due on due Goal FIT. Due on due Goal CT-Colonography. Due on due Goal Lipid panel. Due on due Goal HPV. Due on due Goal FIT-DNA. Due on due Goal Colonoscopy. Due on due Goal Depression scree kathleen. Due on due Goal Sigmoidoscopy. Due on due Goal Hep C Ab. Due on due Goal Td vaccine. Due on due Goal FOBT. Due on due Goal Vision Screen. Due on due Goal FIT. Due on due Goal Lipid panel. Due on due Goal Hep C Ab w/Rflx PCR Genotype,LIPA. Due on due Goal Unhealthy drug u se screening. Due on due Goal Tdap. Due on due Goal Colonoscopy. Due on due Goal Hepatitis Panel (incl Hep A Tot, Hep B Tot) w/Rflx. Due on due Goal FIT-DNA. Due on due Goal Influenza vaccin e. Due on due Goal HPV. Due on due Goal Hep C Ab w/Rflx to Hep C RNA, Quant, RT-PCR. Due on due Goal Hepatitis C scre ening. Due on due Goal Substance Abuse Screen. Due on due Goal CT-Colonography. Due on due Goal Lifestyle education regardin g diet completed Goal Lifestyle education regardin g diet completed Goal Sigmoidoscopy. Due on due Goal FIT. Due on due Goal Unhealthy drug u se screening. Due on due Goal Hep C Ab. Due on due Goal Colonoscopy. Due on due Goal Td vaccine. Due on due Goal Tdap. Due on due Goal Influenza vaccin e. Due on due Goal Zoster vaccine ( 1st). Due on due Goal FIT-DNA. Due on due Goal CT-Colonography. Due on due Goal Hepatitis C scre ening. Due on due Goal Substance Abuse Screen. Due on due Goal HPV. Due on due Goal Vision Screen. Due on due Goal Depression scree kathleen. Due on due Goal Hep C Ab w/Rflx PCR Genotype,LIPA. Due on due Goal Hep C Ab w/Rflx to Hep C RNA, Quant, RT-PCR. Due on due Goal Hepatitis Panel (incl Hep A Tot, Hep B Tot) w/Rflx. Due on due Goal FOBT. Due on due Goal Lipid panel. Due on 028 due Goal FIT. Due on due Goal Hepatitis Panel (incl Hep A Tot, Hep B Tot) w/Rflx. Due on due Goal Zoster vaccine ( ). Due on due Goal Tdap. Due on due Goal Influenza vaccin e. Due on due Goal FOBT. Due on due Goal CT-Colonography. Due on due Goal Hep C Ab. Due on due Goal Colonoscopy. Due on 022 due Goal Substance Abuse Screen. Due on due Goal Sigmoidoscopy. Due on due Goal Depression scree kathleen. Due on due Goal Hepatitis C scre ening. Due on due Goal Vision Screen. Due on due Goal Td vaccine. Due on due Goal HPV. Due on due Goal Unhealthy drug u se screening. Due on due Goal Hep C Ab w/Rflx to Hep C RNA, Quant, RT-PCR. Due on due Goal FIT-DNA. Due on due Goal Hep C Ab w/Rflx PCR Genotype,LIPA. Due on due Goal Lifestyle education regardin g diet completed Goal Lifestyle education regardin g diet completed Goal Substance Abuse Screen. Due on due Goal Td vaccine. Due on due Goal Tdap. Due on due Goal FOBT. Due on due Goal Influenza vaccin e. Due on due Goal FIT-DNA. Due on due Goal Sigmoidoscopy. Due on due Goal Unhealthy drug u se screening. Due on due Goal HPV. Due on due Goal Mammogram. Due on due Goal Depression scree kathleen. Due on due Goal Colonoscopy. Due on 020 due Goal Vision Screen. Due on due Goal FIT. Due on due Goal Hep C Ab. Due on due Goal CT-Colonography. Due on due Goal Hepatitis Panel (incl Hep A Tot, Hep B Tot) w/Rflx. Due on due Goal Hepatitis C scre ening. Due on due Goal Depression scree kathleen. Due on due Goal HPV. Due on due Goal Tdap. Due on due Goal Influenza vaccin e. Due on due Goal Hepatitis C scre ening. Due on due Goal Unhealthy drug u se screening. Due on due Goal Mammogram. Due on due Goal Substance Abuse Screen. Due on due Goal FOBT. Due on due Goal Hepatitis Panel (incl Hep A Tot, Hep B Tot) w/Rflx. Due on due Goal FIT-DNA. Due on due Goal Sigmoidoscopy. Due on due Goal Zoster vaccine ( 1st). Due on due Goal Td vaccine. Due on due Goal FIT. Due on due Goal Vision Screen. Due on due Goal Colonoscopy. Due on 020 due Goal Hep C Ab. Due on due Goal CT-Colonography. Due on due Goal Lifestyle education regardin g diet completed Goal Sigmoidoscopy. Due on due Goal Mammogram. Due on due Goal Tdap. Due on due Goal Hepatitis Panel (incl Hep A Tot, Hep B Tot) w/Rflx. Due on due Goal Vision Screen. Due on due Goal Depression scree kathleen. Due on due Goal FOBT. Due on due Goal Influenza vaccin e. Due on due Goal Hep C Ab. Due on due Goal CT-Colonography. Due on due Goal Substance Abuse Screen. Due on due Goal Colonoscopy. Due on 020 due Goal Td vaccine. Due on due Goal Hepatitis C scre ening. Due on due Goal FIT-DNA. Due on due Goal HPV. Due on due Goal Unhealthy drug u se screening. Due on due Goal FIT. Due on due Goal Zoster vaccine ( ). Due on due Goal Dietary manageme nt education, guidance, and counseling completed Goal FOBT. Due on due Goal Tdap. Due on due Goal Hepatitis Panel (incl Hep A Tot, Hep B Tot) w/Rflx. Due on due Goal Depression scree kathleen. Due on due Goal Vision Screen. Due on due Goal Pap/HPV testing. Due on due Goal Td vaccine. Due on 20 due Goal Substance Abuse Screen. Due on due Goal Influenza vaccin e. Due on due Goal Colonoscopy. Due on 020 due Goal Mammogram. Due on 1 due Goal Hep C Ab. Due on due Goal Sigmoidoscopy. Due on due Goal Lifestyle education regardin g diet completed Goal Colonoscopy. Due on 019 due Goal Mammogram. Due on 1 due Goal Vision Screen. Due on due Goal Tdap. Due on due Goal Sigmoidoscopy. Due on due Goal FOBT. Due on due Goal Pap/HPV testing. Due on due Goal Hep C Ab. Due on due Goal Influenza vaccin e. Due on due Goal Depression scree kathleen. Due on due Goal Hepatitis Panel (incl Hep A Tot, Hep B Tot) w/Rflx. Due on due Goal Substance Abuse Screen. Due on due Goal Td vaccine. Due on 19 due Goal Lifestyle education regardin g diet completed Goal Hep C Ab. Due on due Goal Depression scree kathleen. Due on due Goal Td vaccine. Due on 19 due Goal Substance Abuse Screen. Due on due Goal Mammogram. Due on 1 due Goal Influenza vaccin e. Due on due Goal FOBT. Due on due Goal Tdap. Due on due Goal Hepatitis Panel (incl Hep A Tot, Hep B Tot) w/Rflx. Due on due Goal Pap/HPV testing. Due on due Goal Colonoscopy. Due on due Goal Sigmoidoscopy. Due on due Goal Vision Screen. Due on due Goal Lifestyle education regardin g diet completed Goal Pap/HPV testing. Due on due Goal Sigmoidoscopy. Due on due Goal Influenza vaccin e. Due on due Goal Vision Screen. Due on due Goal Substance Abuse Screen. Due on due Goal Td vaccine. Due on 19 due Goal Hepatitis Panel (incl Hep A Tot, Hep B Tot) w/Rflx. Due on due Goal Tdap. Due on due Goal Hep C Ab. Due on due Goal FOBT. Due on due Goal Mammogram. Due on 1 due Goal Colonoscopy. Due on 019 due Goal Depression scree kathleen. Due on due Goal Substance Abuse Screen. Due on due Goal Sigmoidoscopy. Due on due Goal FOBT. Due on due Goal Depression scree kathleen. Due on due Goal Mammogram. Due on 9 due Goal Td vaccine. Due on 19 due Goal Hepatitis Panel (incl Hep A Tot, Hep B Tot) w/Rflx. Due on due Goal Pap/HPV testing. Due on due Goal Vision Screen. Due on due Goal Colonoscopy. Due on due Goal Tdap. Due on due Goal Hep C Ab. Due on due Goal Influenza vaccin e. Due on due Goal Lifestyle education regardin g diet completed Goal Mammogram. Due on 9 due Goal Substance Abuse Screen. Due on due Goal Vision Screen. Due on due Goal Td vaccine. Due on 19 due Goal Pap/HPV testing. Due on due Goal Sigmoidoscopy. Due on due Goal FOBT. Due on due Goal Hep C Ab. Due on due Goal Hepatitis Panel (incl Hep A Tot, Hep B Tot) w/Rflx. Due on due Goal Tdap. Due on due Goal Influenza vaccin e. Due on due Goal Colonoscopy. Due on due Goal Depression scree kathleen. Due on due Goal Lifestyle education regardin g diet completed Goal Substance Abuse Screen. Due on due Goal Colonoscopy. Due on due Goal Sigmoidoscopy. Due on due Goal FOBT. Due on due Goal Hep C Ab. Due on due Goal Mammogram. Due on 9 due Goal Td vaccine. Due on 19 due Goal Depression scree kathleen. Due on due Goal Hepatitis Panel (incl Hep A Tot, Hep B Tot) w/Rflx. Due on due Goal Tdap. Due on due Goal Influenza vaccin e. Due on due Goal Pap/HPV testing. Due on due Goal Vision Screen. Due on due Goal Colonoscopy. Due on 019 due Goal Mammogram. Due on 9 due Goal Hep C Ab. Due on due Goal Influenza vaccin e. Due on due Goal Tdap. Due on due Goal Pap/HPV testing. Due on due Goal Td vaccine. Due on 19 due Goal Depression scree kathleen. Due on due Goal Substance Abuse Screen. Due on due Goal FOBT. Due on due Goal Sigmoidoscopy. Due on due Goal Lifestyle education regardin g diet completed Goal HIV 1/0/2 Ag/Ab with Reflex. Due on due Goal Colonoscopy. Due on 019 due Goal Mammogram. Due on 9 due Goal Influenza vaccin e. Due on due Goal Depression scree kathleen. Due on due Goal Hep C Ab. Due on due Goal Td vaccine. Due on 19 due Goal Pap/HPV testing. Due on due Goal Tdap. Due on due Goal Substance Abuse Screen. Due on due Goal FOBT. Due on due Goal Sigmoidoscopy. Due on due Goal Dietary manageme nt education, guidance, and counseling completed Goal Lifestyle education regardin g diet completed Goal Lifestyle education regardin g diet completed Goal Lifestyle education regardin g diet completed Goal Lifestyle education regardin g diet completed Referral Ordered: -Ophthalmology (related to Combined forms of age-related cataract, bilateral) ordered Referral Ordered: Mammogram: Screening - Bilateral ordered Referral Ordered: X-ray L-Spine: 4-5 Views ordered Referral Referred To: Physical Therapy Ordered: Referrals: Physical Therapy. Evaluate and treat ordered Referral Ordered: Referrals: Cardiology. Evaluate and treat ordered Referral Ordered: Ultrasound, Breast, Complete Appointment date/timeframe: 12/22/2018 ordered Referral Ordered: Digital Diagnostic Mammogram, Unilateral R Appointment date/timeframe: 12/22/2018 ordered Referral Ordered: Digital Screening Mammogram, Bilateral Appointment date/timeframe: 11/17/2018 ordered Referral Ordered: Referrals: Dermatology. Evaluate and treat ordered Appointment Urvashi Lewis Appointment Urvashi Lewis Appointment Dominique Torres Urvashi TRACI BROOKS Patient Education Gastroesophage al Reflux Disease (GERD~ completed Patient Education Knee Pain: Care Instruc tions completed Future Order: Radiology Order Ma mmogram: Screening - Bilateral ([id number]), Ordered on: Ordered Future Order: Radiology Order X- ray L-Spine: 4-5 Views ([id number]), Added on: New Future Order: Lab Order CBC (INC LUDES DIFF/PLT) ([id number]), Sent on: Sent Future Order: Lab Order COMPREHE NSIVE METABOLIC PANEL ([id number]), Sent on: Sent Future Order: Lab Order LIPID PA SETH ([id number]), Sent on: Sent Future Order: Lab Order TSH W/RE FLEX TO FREE T4 ([id number]), Sent on: Sent Future Order: Lab Order VITAMIN D,25-OH,TOTAL,IA ([id number]), Sent on: Sent Future Order: Lab Order HEMOGLOB IN A1C ([id number]), Sent on: Sent Future Order: Lab Order MICROALB UMIN, RANDOM URINE (W/CREATININE) ([id number]), Sent on: Sent Future Order: Radiology Order Ul trasound, Breast, Complete ([id number]), Added on: New Future Order: Radiology Order Di gital Diagnostic Mammogram, Unilateral R ([id number]), Added on: New Future Order: Radiology Order Di gital Screening Mammogram, Bilateral ([id number]), Added on: New Future Order: Lab Order FECAL GL OBIN BY IMMUNOCHEMISTRY ([id number]), Ordered on: Ordered History Of Present Illness Encounter Date Complaint History Of Prese nt Illness Chalo-07-2025 x blurry va Ou not wearing s pecs, states lids bother her va, also states ptery in way of va os, couldn't get AR in OS today.. Medications for hyper tension no pcp. Growth Patient presents with her today with a small bump on the lateral side of her right ankle.Patient brought an Ultrasound report done in [place] on 2021.Patient complains the growth on her ankle is tender at times. Growth Follow Up of Depression This is a follow up visit. There is improvement of initial symptoms. The client reports functioning as not difficult at all. The client presents with difficulty falling asleep and difficulty staying asleep but denies anxious/fearful thoughts or fatigue. The client denies any chronic pain, headache, irritability, nausea, sweating, trembling, urinary frequency, vomiting and weight gain. Additional information: Patient states her new dog has relieved her depression. Patient states she is still waiting on an JULIA letter for her apartment complex. C/O difficulty falling asleep. Follow Up of hypertension The HT N started in 2018. It is currently improving. Risk factors include age over age 60, depression, high salt intake, inactive lifestyle and obesity. Pertinent negatives include chest pain, claudication, diaphoresis, dyspnea, fatigue, headache, irregular heartbeat/palpitations, nausea and vomiting. depression This is an initi al visit. The first episode occurred in 2021. Related symptoms are uncontrolled. The client reports functioning as somewhat difficult. The client presents with anxious/fearful thoughts, depressed mood, difficulty falling asleep, difficulty staying asleep, excessive worry, fatigue, racing thoughts and restlessness but denies increased energy, hallucinations or thoughts of or suicide. The client's risk factors include financial worries and unemployment. The client's risk factors exclude alcoholism, drug abuse, family history of depression, family history of anxiety, family history of bipolar disorder, history of depression and history of suicidal attempts. The depression is aggravated by conflict or stress, lack of sleep and financial worries. The client's relieving factors are exercise and a good response to new dog.The client's symptoms are not relieved by alcohol or drugs. The depression is associated with irritability and weight gain. The client denies any headache, nausea, sweating, trembling and vomiting. Additional information: states that her new dog which is 3 mos old has made her happier and is requesting a letter that she needs it for therapy. hypertension The HTN started in 2019. Risk factors include age over age 60, high salt intake, inactive lifestyle and obesity. The hypertension is exacerbated by stress. Associated symptoms include fatigue. Pertinent negatives include chest pain, diaphoresis, dyspnea, headache, hematuria, irregular heartbeat/palpitations and vomiting. back pain Location of pain is lower back. Pain is radiated to the left thigh. The client describes the pain as an ache and burning. Context: no injury. Symptoms are aggravated by bending, flexion and lifting. Symptoms are relieved by rest. UTI The severity of the problem is mild. Presenting/Initial symptoms include burning, dysuria, frequency, hesitancy and urgency. Symptoms are not associated with diabetes, , recent catheterization or recurring urinary tract infection. Aggravating factors include urination. Symptoms are relieved by OTC analgesics. Associated symptoms include dysuria, pressure and urgency. Pertinent negatives include fever, flank pain, hematuria, nausea, pelvic pain, vaginal discharge or vomiting. hypertension (comments) Pt has n ot taken b/p medication for 1 month due to not having insurance.Patient going to [place] for two months. hypertension Risk factors inc lude high salt intake and obesity. Pertinent negatives include chest pain, claudication, confusion, diaphoresis, dyspnea, epistaxis, fatigue, headache, hematuria, irregular heartbeat/palpitations, nausea, tinnitus, transient weakness, tremor, visual disturbances and vomiting. hypertension Risk factors inc lude high salt intake and obesity. Pertinent negatives include chest pain, claudication, confusion, diaphoresis, dyspnea, epistaxis, fatigue, headache, hematuria, irregular heartbeat/palpitations, nausea, tinnitus, transient weakness, tremor, visual disturbances and vomiting. Additional Information Seen at [facility] on 12/02/18 for near syncope episode lasting several minutes. Patient stated she felt dizzy, fell to knees and then bumped head. Vision was fuzz, but never black. Work up at ER consisted of Labs (CBC, CMP, Trop. without significant findings), chest x ray (no findings), EKG (Sinus bradycardia with premature complexes HR 59) and monitoring. Discharged same day with instructions to see provider.Discharge Diagnoses:Near syncopePalpitations hypertension Risk factors inc lude high salt intake and obesity. The hypertension is exacerbated by stress and Denies new stress. Pertinent negatives include chest pain, claudication, confusion, diaphoresis, dyspnea, epistaxis, fatigue, headache, hematuria, irregular heartbeat/palpitations, nausea, tinnitus, transient weakness, tremor, visual disturbances and vomiting. ER Follow Up The onset was 3 days ago. Trauma due to Syncope while at work on . Denies aggravating factors. Denies relieving factors.Pt fainted at work on 12/02/18. pt states she did take her b/p meds that day but still felt lightheaded.No change in stress, sleep or caffeine intake. Additional info Patient would al so like to go over her lab results done on 10/05/18. Follow Up of Weight management Robb steiner is present today to follow up her weight. Patient states she had tried to eat healthier: LDL 108. annual exam : 5. Alaina ty: Term: 3. : 2. The patient states she uses menopausal for control. Her menses is absent. Negative for: breast discharge, breast lump(s) and breast pain. Positive for: breast self exam.Postmenopausal: Age: 50. Menopausal symptoms negative for: insomnia, night sweats and vaginal dryness. Menopausal symptoms positive for: hot flashes. Associated symptoms include anxiety, vaginal discharge and vaginal itching. Pertinent negatives include abnormal bleeding (hematology), abnormal vaginal bleeding, decreased libido, depression, difficulty falling sleep, dyspareunia, history of infertility, nocturia, sexual dysfunction, sleep disturbances, urinary incontinence and urinary urgency. Diet regular. She does not take calcium. She does not take Vitamin D. She does not take multivitamins. She does not take Folic acid. She has not been exposed to passive smoke. She does not drink alcohol. Additional information: Last PAP 5 years, negative per pt.. last mammo 5 years ago. having thick vaginal discharge and some itching. No history of abnormal pap. Mammogram normal. No family history of breast cancer. . Ocular Discomfort due to blur va OU constant x6mos. Obesity The patient is l osing weight. Aggravating factors include lack of exercise and poor mobility. Associated symptoms include constipation. Pertinent negatives include abdominal pain, acne, amenorrhea, anhidrosis, anorexia, anxiety, cold intolerance, depression, delayed development, facial plethora, fatigue, generalized weakness, hair loss, headache, hirsutism, hoarseness, lethargy, low self-esteem, oligomenorrhea, paresthesias, striae or vision changes. Additional information: Pt is here to discuss lab results. Skin lesion The problem is m oderate and worsened. The patient has not been previously treated. The patient reports no prior history of skin cancer. Risk factors do not include family history of skin cancer. The patient denies aggravating factors. Associated symptoms include pruritus. The patient reports no blistering, change in color of mole(s), change in size and shape of the mole(s), erythema, fatigue, lesion discharge, lymphadenopathy, non-healing sores, painful lesions, pigment change, recurrent bleeding lesions, scaly skin or skin irritation. Weight Management Pt is here for weight management. Pt states in 2 years she has gained 20 lbs. Breakfast: oatmeal nuts and apple, 2% milkLunch: soup (skinless chicken and carrots made w/ water, sandwich: lettuce, tomato, turkey sausage, 2 slices of bread) Dinner: 3-5 tortillas beef stew rice beans H/o PrediabetesPt goal weight 140. Obesity Risk factors inc lude annual weight gain of > 2 lbs (1kg) / year, ethnicity, family history of obesity, high fat diet, sedentary lifestyle and socioeconomic status. Aggravating factors include high fat diet and lack of exercise. Pertinent negatives include abdominal pain, acne, amenorrhea, anhidrosis, anorexia, anxiety, cold intolerance, constipation, depression, delayed development, facial plethora, fatigue, generalized weakness, hair loss, headache, hirsutism, hoarseness, lethargy, low self-esteem, oligomenorrhea, paresthesias, striae or vision changes. hypertension Risk factors inc lude high salt intake and obesity. Associated symptoms include dyspnea and headache. Additional information: Patient states that the previous provider took her off her blood pressure. Patient thinks she still needs medication. She has been taking her mother's medications Follow up on lab test(s) General labs hypertension Additional infor mation: patient states that she needs a refill on her lisinopril that was prescribed by her doctor in [place] she has not been taking medication for a month. est care patient is here to est care with the provider. hyperlipidemia Reasons for scre ening do not include alcohol use and tobacco use. Additional information: patient has been with out medication for a month would like a refill on pravastatin. jaw cracking patient states t hat she is having trouble opening her jaw. she states that she has to force open her mouth to drink water. its been going on for a month she has some pain and hears a cracking noise when she opens her jaw. 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 Related to Essential hypertension Continue fluoxetine as directed.Start Melatonin as directed.See a counselor (such as a psychiatrist, psychologist, nurse, or social media marketing manager)--DeclinedSee someone right away if you want to hurt or kill yourself! ??? 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 ??? If you ever feel like you might hurt yourself or someone else, do one of these things:-Call your doctor or nurse and tell them it is urgent-Call for an ambulance (in the [place] and [place], dial )-Go to the emergency room at your local hospital-Call the National Suicide Prevention Lifeline: Related to Moderate major depression - Reduce portion siz es of meals.- Limit foods that are high in saturated fat.- Avoid high-calories beverages like sodas, fruit juices and alcohol- Increase intake of fruits, vegetables, and whole grains- Decrease salt intake- Avoid white sugar- Benefits of Exercise Included: * Burn calories, which will help you lose weight * Help control blood sugar levels in people with diabetes * Lower blood pressure, especially in people with high blood pressure * Lower stress and help with depression * Keep bones strong, so they don't get thin and break easily * Lower the chance of dying from heart disease- keep a food diary - Exercise a minimum of 30 minutes daily- Continue your daily exercise Advised patient to increase activity level as tolerated with a goal to walk 30min/day. Diet change needed to include healthy foods/vegetables and limit intake of sugar, carbohydrates, high sodium, and fatty foods. Related to Body mass index (BMI) 34.0-34.9, adult Continue lisinopril as directed.Try to lose weight by engaging in moderate exercise 30 -45 minutes most days of the weekStop smoking if you areReduce your stress levelLimit alcohol intake to 30ml of less per day for men or 15ml or less per day for womenEat fatty cold water fish such as salmon, anchovy 3 times per dayReduce red meat and processed foodsEat fish and poultryAvoid high sodium foods such as cold cuts, ready made foods, any pickled foods, cucumbers, eggs, pork parts Related to Essential hypertension Giving encouragement to exercise Related to Body mass index [BMI] 34.0-34.9, adult Lifestyle education regarding di et Related to Body mass index [BMI] 34.0-34.9, adult Giving encouragement to exercise Related to Dietary counseling and surveillance Lifestyle education regarding di et Related to Dietary counseling and surveillance Rx: gabapentin. Disc ussed sedation precautions with Rx. Relative rest, stretching. Follow up with PCP if no daily improvement. Related to Chronic left-sided low back pain with left-sided sciatica Giving encouragement to exercise Related to Body mass index [BMI] 35.0-35.9, adult Lifestyle education regarding di et Related to Body mass index [BMI] 35.0-35.9, adult Follow up with PCP. Related to E ssential (primary) hypertension Push fluids, return or see PCP if no daily improvement, go to ER if worse. Related to Cystitis Giving encouragement to exercise Related to Body mass index [BMI] 35.0-35.9, adult Dietary management e ducation, guidance, and counseling Related to Body mass index [BMI] 35.0-35.9, adult Continue Lisinopril 10 mg once a dayThe patient will have labs and Lisinopril filled and begin taking again today.Avoid adding salt to food, soda, and processed foods.Eat a meal high in vegetables, fruits, low-fat dairy products, whole grains, poultry, fish, and nuts and low in sweets.Limit alcohol intake.Aerobic exercise at least 30 minutes to 1 hour most days of the week.Check blood pressure at least three times a week.Follow-up in 3 months. Related to Essential (primary) hypertension Giving encouragement to exercise Related to Body mass index (BMI) 35.0-35.9, adult Lifestyle education regarding di et Related to Body mass index (BMI) 35.0-35.9, adult Continue blood press ure medication as directed.Avoid adding salt to food, soda, and processed foods.Eat a meal high in vegetables, fruits, low-fat dairy products, whole grains, poultry, fish, and nuts and low in sweets.Limit alcohol intake.Aerobic exercise at least 30 minutes to 1 hour most days of the week.Check blood pressure at least three times a week.Follow-up in 3 months. Related to Essential (primary) hypertension Eat a variety of ha ds every day. Good choices include fruits, vegetables, whole grains (like oatmeal), dried beans and peas, nuts and seeds, soy products (like tofu), and fat-free or low-fat dairy products. Replace butter, margarine, and hydrogenated or partially hydrogenated oils with olive and canola oils. (Canola oil margarine without trans fat is fine.) Replace red meat with fish, poultry, and soy protein (like tofu). Limit processed and packaged foods like chips, crackers, and cookies. Bake, broil, or steam foods. Don't kinney them. Limit foods high in cholesterol. These include egg yolks. Be physically active. Get at least 30 minutes of exercise on most days of the week. Walking is a good choice. You also may want to do other activities, such as running, swimming, cycling, or playing tennis or team sports. Stay at a healthy weight or lose weight by making the changes in eating and physical activity listed above. Follow-up in 3 months. Related to Hyperlipidemia, unspecified hyperlipidemia type Giving encouragement to exercise Related to Body mass index (BMI) 35.0-35.9, adult Lifestyle education regarding di et Related to Body mass index (BMI) 35.0-35.9, adult Avoid caffeine, faye gian, and excess alcohol. Do not take illegal drugs, such as methamphetamines and cocaine. Do not take weight loss or diet medicines unless you talk with your doctor first. Get plenty of sleep. Do not overeat. If you have palpitations again, take deep breaths and try to relax. This may slow a racing heart. If you start to feel lightheaded, lie down to avoid injuries that might result if you pass out and fall down. Keep a record of your palpitations and bring it to your next doctor's appointment. Write down: The date and time. Your pulse. (If your heart is beating fast, it may be hard to count your pulse.) What you were doing when the palpitations started. How long the palpitations lasted. Any other symptoms. If an activity causes palpitations, slow down or stop. Notify medical before you do that activity again. Call anytime you think you may need emergency care. For example: chest pain or pressure, or a strange feeling in the chest, sweating, shortness of breath.Follow-up in 1 month. Related to Intermittent palpitations Continue blood press ure medication as directed.Avoid adding salt to food, soda, and processed foods.Eat a meal high in vegetables, fruits, low-fat dairy products, whole grains, poultry, fish, and nuts and low in sweets.Limit alcohol intake.Aerobic exercise at least 30 minutes to 1 hour most days of the week.Check blood pressure at least three times a week.Follow-up in 1 month. Related to Essential (primary) hypertension Giving encouragement to exercise Related to Body mass index (BMI) 35.0-35.9, adult Lifestyle education regarding di et Related to Body mass index (BMI) 35.0-35.9, adult Eat a variety of ha ds every day. Good choices include fruits, vegetables, whole grains (like oatmeal), dried beans and peas, nuts and seeds, soy products (like tofu), and fat-free or low-fat dairy products. Replace butter, margarine, and hydrogenated or partially hydrogenated oils with olive and canola oils. (Canola oil margarine without trans fat is fine.) Replace red meat with fish, poultry, and soy protein (like tofu). Limit processed and packaged foods like chips, crackers, and cookies. Bake, broil, or steam foods. Don't kinney them. Limit foods high in cholesterol. These include egg yolks. Be physically active. Get at least 30 minutes of exercise on most days of the week. Walking is a good choice. You also may want to do other activities, such as running, swimming, cycling, or playing tennis or team sports. Stay at a healthy weight or lose weight by making the changes in eating and physical activity listed above. Losing just a small amount of weight, even 5 to 10 pounds.Follow-up in 1 month. Related to Hyperlipidemia, unspecified hyperlipidemia type - Reduce portion siz es of meals.- Limit foods that are high in saturated fat.- Avoid high-calories beverages like sodas, fruit juices and alcohol- Increase intake of fruits, vegetables, and whole grains- Decrease salt intake- Avoid white sugar- Benefits of Exercise Included: * Burn calories, which will help you lose weight * Help control blood sugar levels in people with diabetes * Lower blood pressure, especially in people with high blood pressure * Lower stress and help with depression * Keep bones strong, so they don't get thin and break easily * Lower the chance of dying from heart disease- keep a food diary - Exercise a minimum of 30 minutes daily- Continue your daily exerciseFollow-up in 1 month. Related to Obesity (BMI 30-39.9) Giving encouragement to exercise Related to Body mass index (BMI) 35.0-35.9, adult Lifestyle education regarding di et Related to Body mass index (BMI) 35.0-35.9, adult 1. Reviewed importan ce of normal cervical cancer screenings; pap collected2. Discussed self breast awareness3. Safe sex practices encouraged.4. Encouraged healthy diet, regular exercise of 30 min 5-6 days per week, routine health screenings5. Recommend yearly mammograms for early detection for breast cancer6. Encouraged calcium 1200mg calcium through dietary supplements. If can not get encough calcium through diet then add on additional calcium supplement. Calcium supplement can increase risk of renal stones. 7. Follow up in 1 year or as needed. Related to Encntr for slip tender exam (general) (routine) w/o abn findings Giving encouragement to exercise Related to Body mass index (BMI) 35.0-35.9, adult Lifestyle education regarding di et Related to Body mass index (BMI) 35.0-35.9, adult Impression/Plan Related to Perip heral pterygium, progressive, bilateral Continue blood press ure medication as directed.Avoid adding salt to food, soda, and processed foods.Eat a meal high in vegetables, fruits, low-fat dairy products, whole grains, poultry, fish, and nuts and low in sweets.Limit alcohol intake.Aerobic exercise at least 30 minutes to 1 hour most days of the week.Check blood pressure at least three times a week. Related to Essential (primary) hypertension Start including aero bic exercise 4-5 days a week. Related to Obesity (BMI 30-39.9) Continue to monitor moles for change in color, size, and shape. Related to Numerous skin moles Drink plenty of flui ds, enough so that your urine is light yellow or clear like water. If you have kidney, heart, or liver disease and have to limit fluids, talk with your doctor before you increase the amount of fluids you drink. Include high-fiber foods in your diet each day. These include fruits, vegetables, beans, and whole grains. Get at least 30 minutes of exercise on most days of the week. Walking is a good choice. You also may want to do other activities, such as running, swimming, cycling, or playing tennis or team sports. Take a fiber supplement, such as Citrucel or Metamucil, every day. Read and follow all instructions on the label. Schedule time each day for a bowel movement. A daily routine may help. Take your time having your bowel movement. Support your feet with a small step stool when you sit on the toilet. This helps flex your hips and places your pelvis in a squatting position. Related to Constipation, unspecified constipation type BMI > 30 -Reduce por tion sizes of meals.-Limit foods that are high in saturated fat.-Avoid high-calories beverages like sodas, fruit juices and alcohol -Increase intake of fruits, vegetables, and whole grains -Decrease salt intake-Avoid white sugarBenefits of Exercise Include:*Burn calories, which will help you lose weight*Help control blood sugar levels in people with diabetes*Lower blood pressure, especially in people with high blood pressure*Lower stress and help with depression *Keep bones strong , so they don't get thin and break easily * Lower the chance of dying from heart disease-Keep bones pressure - Exercise a minimum of 30 minutes daily -Continue your daily exercise Related to Body mass index (BMI) 36.0-36.9, adult Giving encouragement to exercise Related to Body mass index (BMI) 36.0-36.9, adult Lifestyle education regarding di et Related to Body mass index (BMI) 36.0-36.9, adult - Reduce portion siz es of meals.- Limit foods that are high in saturated fat.- Avoid high-calories beverages like sodas, fruit juices and alcohol- Increase intake of fruits, vegetables, and whole grains- Decrease salt intake- Avoid white sugar- Benefits of Exercise Included: * Burn calories, which will help you lose weight * Help control blood sugar levels in people with diabetes * Lower blood pressure, especially in people with high blood pressure * Lower stress and help with depression * Keep bones strong, so they don't get thin and break easily * Lower the chance of dying from heart disease- keep a food diary - Exercise a minimum of 30 minutes daily- Continue your daily exercise Related to Obesity (BMI 30-39.9) Avoid carbs at night . (Protein and vegetables only at dinner).Discussed diet--plate method (portion control), eat small meal portions and lots of non-starchy vegetables like spinach, cabbage, kale, carrots, cucumbers, lettuce, tomatoes, zucchini, broccoli, and cauliflower. Small amount of whole grain breads, brown rice, quinoa, whole grain tortilla, beans, corn, potatoes, yams, bran/whole grain cereal, oatmeal, whole grain pasta, and fruits as these foods can increase blood sugar and weight when eaten in large portions. Eat fruits in small portions as snacks 2-3 times daily. Plan and prepare meals. Drink water and unsweetened tea; avoid sodas and all juices. Stick to your goals. You can do it! Related to Prediabetes Giving encouragement to exercise Related to Body mass index (BMI) 36.0-36.9, adult Dietary management e ducation, guidance, and counseling Related to Body mass index (BMI) 36.0-36.9, adult Giving encouragement to exercise Related to Body mass index (BMI) 30.0-30.9, adult Lifestyle education regarding di et Related to Body mass index (BMI) 30.0-30.9, adult Giving encouragement to exercise Related to Body mass index (BMI) 29.0-29.9, adult Lifestyle education regarding di et Related to Body mass index (BMI) 29.0-29.9, adult Recommend Vitamin D OTC 2000 units daily. Related to Vitamin D deficiency -Instructed diabetic diet to prevent progression of disease to diabetes. Instructed diet should be low in carbohydrates. Instructed importance of portion control, weight loss, and exercise to improve glucose intolerance. Related to Prediabetes Instructed to contin ue what she is on and work on the diet-The National Cholesterol Education Program recommendations for dietary modifications guidelines to lower blood cholesterol are outlined Total fat in the diet should be reduced to no more than 30 percent of calories. Saturated fats have been shown to elevate blood cholesterol levels. They are mainly found in animal products any meat, poultry or fish and anything that comes from an animal such as dairy products. Plant oils that are high in saturated fats include coconut, palm, and palm kernel oils. Saturated fats need not be eliminated from the diet but should be limited to less than 10 percent of your calories. Dietary cholesterol should be no more than 200-300 mg per day. Fiber can act like a sponge in taking some of the fat out of the body without letting it get absorbed into the blood Related to Elevated LDL cholesterol level DASH dietDiet and exerciseWeight loss Related to Essential (primary) hypertension Giving encouragement to exercise Related to Body mass index (BMI) 29.0-29.9, adult Lifestyle education regarding di et Related to Body mass index (BMI) 29.0-29.9, adult will recheck when sh e returns for lab f/u and assess if need to restart BP medication Related to Essential (primary) hypertension Educated potential S /E of NSAIDs to include GI bleeding, GI ulcers, HTN, nephrotoxicity, & hepatotoxicity. Instructed NSAIDs are not indicated for mcc use. Instructed that this medication should not be taken with any other NSAID medications. Instructed to take with food. If s/s of bleeding, diarrhea, n/v, abdominal pain, or urinary problems occur stop medication immediately and call clinic. Patient verbalizes understanding of all instructions. Related to TMJ click Giving encouragement to exercise Related to Body mass index (BMI) 29.0-29.9, adult Lifestyle education regarding di et Related to Body mass index (BMI) 29.0-29.9, adult Assessments Type Assessment Date assessment Combined forms of age-related ca taract, bilateral impression Combined forms of age-related ca taract, bilateral: H25.813 Patient Care Teams Name Effective Dates (start - stop) Status Members No Information
[2024-09-08 12:52] VITALS: BP 133/79; PULSE 91; RESP 17; O2SAT 96; BMI 46.2
== END 2024-09-08 13:21 | disposition home or self-care (01) ==
PROVIDERS: PCP Internal Medicine; Visit Provider Registered Nurse Emergency
DX: M25.552 Pain in left hip (principal); M54.50 Low back pain, unspecified; M16.12 Unilateral primary osteoarthritis, left hip; M47.27 Other spondylosis with radiculopathy, lumbosacral region; G89.4 Chronic pain syndrome; G90.522 Complex regional pain syndrome I of left lower limb
CPT/HCPCS: 99214; G2211

== ENCOUNTER → 2024-09-08 12:47 | Outpatient (BNVA) | payer OTHER, SELFPAY | PROVIDERS: PCP Internal Medicine; Visit Provider Registered Nurse Emergency | DX: Z51.81 Encounter for therapeutic drug level monitoring (principal); F11.20 Opioid dependence, uncomplicated; M25.552 Pain in left hip; M54.50 Low back pain, unspecified; M16.12 Unilateral primary osteoarthritis, left hip; M47.27 Other spondylosis with radiculopathy, lumbosacral region; G90.522 Complex regional pain syndrome I of left lower limb; G89.4 Chronic pain syndrome | CPT/HCPCS: 99212 ==

== ENCOUNTER → 2024-09-22 23:59 | Outpatient (BNV) | payer OTHER, SELFPAY ==
--- NOTE | 2024-09-24 12:27 | MHC.OFFVIS ---
Intake Visit Reasons: Remote ICD ck-[place] [facility] Allergies adhesive tape Allergy (Intermediate, Verified 09/08/24 12:53) skin breakdown PFSH Medical History Pain at surgical incision Urinary incontinence in female Stress incontinence Lumbar back pain with radiculopathy affecting left lower extremity GERD (gastroesophageal reflux disease) HTN (hypertension) Complex regional pain syndrome i of left lower limb Chronic pain syndrome Cardiac pacemaker in situ Cardiomyopathy Second degree AV block Allergies Osteoarthritis of left knee Spondylosis of lumbosacral spine with radiculopathy Back pain Surgical History History of hernia repair (~11/12/23) H/O gastric bypass Gastric bypass status for obesity Hx of cholecystectomy Hx of breast reduction, elective Hx of colonoscopy History of esophagogastroduodenoscopy (EGD) History of permanent cardiac pacemaker placement Family History Father Asthma Mother HTN (hypertension) Alzheimer disease Brother Cardiac pacemaker Sister Colon cancer Metastatic cancer Social History Household Members: None Housing: Apartment Do you presently have 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 Pacemaker function is adequate with Bi V pacing 100%. Few episodes of PMT noted [id number] Cardiac Device Interrogation, pacemaker Procedure code (CPT) selection complete Assessment & Plan Assessment & Plan (1) Biventricular cardiac pacemaker in situ: Code(s): Z95.0 - Presence of cardiac pacemaker Category: Medical Plan: See above Coding Level of Care Code Procedure Only Diagnoses Biventricular cardiac pacemaker in situ Z95.0 CPT Codes Cardiac Device Check - Cardiac Device 12: [id number] Cardiac Device Interrogation, pacemaker ([id number])
== END ==
PROVIDERS: PCP Internal Medicine; Visit Provider Internal Medicine Cardiovascular Disease
DX: R00.0 Tachycardia, unspecified (principal); Z95.0 Presence of cardiac pacemaker
CPT/HCPCS: 93294

== ENCOUNTER → 2024-09-23 13:59 | Outpatient (REF) | payer OTHER, SELFPAY ==
--- NOTE | 2024-09-23 14:02 | CA_ITS ---
Transthoracic Echocardiogram Patient (Last, First, Middle): Brian Kirk Rick Landin Gender: Female Date of : 1965 Age: 59 Procedure Date: 09/23/2024 Procedure Type: Transthoracic Echocardiogram Location: OP Height: 160.02 cm Weight: 118.39 kg BSA: 2.17 m2 Heart Rate: bpm BP: 133 / 79 mmHg Trim Sawyer: KOURTNEY Referring MD: Jen Arellano CONTINUOUS IMPROVEMENT MANAGERNatasha Symptoms: I42.9 - Cardiomyopathy, unspecified Study Quality: Fair Conclusions: - Normal LV systolic function at 55-60% Findings Left Ventricle Normal left ventricular size, thickness, and systolic function. The visually estimated ejection fraction is between 55-60%. Diastolic function is indeterminate on the basis of available data. Peak GLS is -18.3% within normal limits. Prior Study Comparison Changes noted compared to prior study dated: 07/19/2024. LV systolic function has marginally improved Measurements 2D Linear Measurements IVSd: 1.25 0.6-0.9/0.6-1.0 cm LVIDd: 4.14 3.9-5.3/4.2-5.9 cm LVIDd Index: 1.91 2.4-3.2/2.2-3.1 cm/m2 LVIDs: 2.59 2.0-3.6 cm LVPWd: 0.85 0.7-1.1 cm LA Diam: 3.20 2.7-3.8/3.0-4.0 cm LAIDs Index: 1.47 1.5-2.3 cm/m2 LV Mass: 178.89 67-162/88-224 g LV Mass Index: 82.44 43-95/49-115 g/m2 LVOT Diam: 2.40 3.0+(-)1.3 cm 2D Systolic Function EF 4C: 54.00 >55% EF 2C: 62.60 >55% EF BiP: 58.90 >55% LVOT LVOT Pk Wilfredo: 1.34 LVOT Mn Wilfredo: 0.85 LVOT VTI: 0.22 LVOT Pk Grad: 7.00 LVOT Mn Grad: 3.00 LVOT Diam: 2.40 LVOT Area: 4.52 Tricuspid Valve RA Press: 3.00 Updated in Other Vendor System with Status of Final Gabriel Salcedo MD electronically signed on 09/24/2024 11:55:44 AM with status of Final
== END ==
LOC: HO.CARD 13:59
PROVIDERS: PCP Internal Medicine; Visit Provider Nurse Practitioner Family
DX: I42.9 Cardiomyopathy, unspecified (principal)
CPT/HCPCS: 93308

== ENCOUNTER → 2024-09-23 14:02 | Outpatient (BNV) | payer OTHER, SELFPAY | PROVIDERS: PCP Internal Medicine; Visit Provider Internal Medicine Cardiovascular Disease | DX: I42.8 Other cardiomyopathies (principal) | CPT/HCPCS: 93308; 93356 ==

== ENCOUNTER 2024-09-27 09:58 | Outpatient (AMB) | payer OTHER, SELFPAY ==
--- NOTE | 2024-09-27 10:08 | A.OFFVIS_ITS ---
Intake Visit Reasons: Inj-B/L knee injection-last injection 06/25/24 Intake Note: Urvashi is a 58 year old female who presents today for bilateral knee injections. Both of her knees were last injected on 06/25/24. Patient reports that the last injections were helpful but have become less effective over time. She would like to repeat bilateral knee injections today. Allergies adhesive tape Allergy (Intermediate, Verified 09/08/24 12:53) skin breakdown HPI HPI Inj-B/L knee injection-last injection 06/25/24: Details: Urvashi is a 58 year old female who presents today for bilateral knee injections. Both of her knees were last injected on 06/25/24. Patient reports that the last injections were helpful but have become less effective over time. She would like to repeat bilateral knee injections today. [facility] Medical History Pain at surgical incision Urinary incontinence in female Stress incontinence Lumbar back pain with radiculopathy affecting left lower extremity GERD (gastroesophageal reflux disease) HTN (hypertension) Complex regional pain syndrome i of left lower limb Chronic pain syndrome Cardiac pacemaker in situ Cardiomyopathy Second degree AV block Allergies Osteoarthritis of left knee Spondylosis of lumbosacral spine with radiculopathy Back pain Surgical History History of hernia repair (~11/12/23) H/O gastric bypass Gastric bypass status for obesity Hx of cholecystectomy Hx of breast reduction, elective Hx of colonoscopy History of esophagogastroduodenoscopy (EGD) History of permanent cardiac pacemaker placement Family History Father Asthma Mother HTN (hypertension) Alzheimer disease Brother Cardiac pacemaker Sister Colon cancer Metastatic cancer Social History Household Members: None Housing: Apartment Do you presently have visiting nurse or other home services: 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 Site was prepped using aseptic technique. Patient tolerated the procedure well. Shoulders, Hips, Knees, Knee Large Joint Injection [id number]: Bilateral Knee Coding Procedure code (CPT) selection complete Assessment & Plan Assessment & Plan (1) Localized osteoarthritis of knees, bilateral: Comment: Injected bilateral knees. Code(s): M17.0 - Bilateral primary osteoarthritis of knee Category: Medical Plan: This is a 59-year-old with bilateral knee osteoarthritis. I injected both knees. She can follow up in 3 months for repeat injections should she so desire. Coding Level of Care Code Est Pt Level 3 (30929) Diagnoses Localized osteoarthritis of knees, bilateral M17.0 CPT Codes Shoulders, Hips, Knees, - Knee Large Joint Injection : Bilateral Knee ([id number])
--- OUTSIDE RECORDS SUMMARY | 2024-09-27 14:35 | XMS_ITS | Clinical Summary ---
Author Organization [employer] Address [address] [facility] [address] [place] [address] Care Team Providers Care Teletype Technician Name Role Phone Unavailable Primary Care Provider Unavailabl e Allergies Active Allergy Reactions Criticality Noted Date Comments Dust Mite Extract Dermatitis 10/16/2023 Wound Dressing Adhesive Rash Low 10/16/2023 Medications gabapentin (Neurontin) 400 MG capsule TOME CELY C PSULA FLAVIO VECES AL D A 4 Active lisinopril 2.5 MG tablet TOME CELY TABLETA TODOS LOS D 3 Active traMADol (Ultram) 50 MG tablet TOME CELY TABLETA ORALLY 2 TIMES A DAY NEEDED FOR PAIN FOR 30 DAYS 4 Active beta carotene (vitamin A) 3 MG (91984 UT) capsule TOME 2 C PSULAS POR V A ORAL TODOS LOS D 4 Active triamcinolone (Nasacort) 55 MCG/ACT nasal inhaler ADMINISTER 1-2 SPRAYS IN EACH NOSTRIL DAILY IN THE MORNING 3 Active Myrbetriq 50 MG 24 hr tablet TOME CELY TABLETA POR V A ORAL TODOS LOS CARSON 4 Active metoprolol succinate XL (Toprol-XL) 25 MG 24 hr tablet TOME CELY TABLETA TODOS LOS D 3 Active magnesium oxide (Mag-Ox) 400 (240 Mg) MG tablet TOME CELY TABLETA TODOS LOS D 3 Active ketotifen (Zaditor) 0.025 % ophthalmic solution PLACE 1 DROP IN EACH EYE UP TO TWICE DAILY 3 Active ipratropium (Atrovent) 0.06 % nasal spray INHALE 1 TO 2 SPRAYS IN EACH NOSTRIL NEEDED FOR RUNNY NOSE FOR UP TO 3 TIMES A DAY 3 Active Yuvafem 10 MCG tablet vaginal tablet INSERT 10 MCG VAGINALLY 2 TIMES A WEEK USE 2 TIMES A WEEK - APPLY AT BEDTIME, MON/THURS 4 Active cholecalciferol 50 MCG (1999) capsule TOME CELY C PSULA TODOS LOS D 3 Active cetirizine (ZyrTEC) 10 MG tablet TAKE 1 TABLET BY MOUTH DAILY NEEDED FOR ITCHING OR SNEEZING. 4 Active furosemide (Lasix) 20 MG tablet 20 mg. 4 Active Active Problems No known active problems Social History Tobacco Use Types Packs/Day Years Used Date Smoking Tobacco: Former Cigarettes Q uit: 10/02/2015 Smokeless Tobacco: Never Tobacco Cessation:Counseling Given: Not Answered Alcohol Use Standard Drinks/Week Comments Never 0 (1 standard drink = 0.6 oz pur e alcohol) Comments Unknown Sex and Gender Information Value Date Recorded Sex Assigned at Female 07/01/2022 10:16 AM EDT Legal Sex Female 10:16 AM EDT Gender Identity Female 10/16/2023 1:06 PM EST Sexual Orientation Straight 10/16/2023 1: 06 PM EST Last Filed Vital Signs Vital Sign Reading Time Taken Comments Blood Pressure 132/80 02/26/2024 11:21 AM EDT Pulse - - Temperature - - Respiratory Rate - - Oxygen Saturation - - Inhaled Oxygen Concentration - - Weight - - Height - - Body Mass Index - - Plan of Treatment Health Maintenance Due Date Last Done Comments CT Colonography 1964 Colonoscopy 1964 Colorectal Cancer Screening 1964 Depression Screening 1964 FIT DNA/Cologuard 1964 FIT 1964 FOBT 1964 HIV Screening 1964 SDOH Screening 1964 Sigmoidoscopy 1964 Alcohol/Substance Use Screening 1976 Hepatitis C Screening 1982 Pap Smear 1985 Cervical Cancer Screening 1994 HPV/Cotest 1994 Mammogram 2004 Zoster Vaccines (2 of 2) 04/07/2024 02/11/2024 COVID-19 Vaccine (2023-2 5 season) 2024 08/20/2021, 11/29/2020, 11/08/2020 Influenza Vaccine (#1) 2024 , 08/20/2021 Dental Oral Exam 05/29/2024 11/26/2023, 08/26/2017 Dental Prophylaxis 06/19/2024 12/18/2023, 11/01/2008 Dental X-Ray: Bitewings 11/26/2024 11/26/19 24, 08/26/2017, 01/30/2009 Tobacco Screening 02/25/2025 02/26/2024 Dental X-Ray: Full Mouth 11/26/2026 024, 10/16/2023, 08/26/2017 DTaP/Tdap/Td Vaccines (2 - T d or Tdap) 10/15/2033 10/15/2023 RSV Patients and Patients Aged 60 years or older (1 - 1-dose 75+ series) 2039 Pneumococcal Vaccine: Pediatrics (0 to 5 Years) and At-Risk Patients (6 to 64 Years) Aged Out 02/11/2024 No longer eligible b ased on patient's age to complete this topic HIB Vaccines Aged Out No longer eligi ble based on patient's age to complete this topic HPV Vaccines Aged Out No longer eligi ble based on patient's age to complete this topic Hepatitis A Vaccines Aged Out No long er eligible based on patient's age to complete this topic Hepatitis B Vaccines Aged Out No long er eligible based on patient's age to complete this topic IPV Vaccines Aged Out No longer eligi ble based on patient's age to complete this topic Meningococcal Vaccine Aged Out No juancho keyon eligible based on patient's age to complete this topic RSV under 20 months Aged Out No longe r eligible based on patient's age to complete this topic Rotavirus Vaccines Aged Out No longer eligible based on patient's age to complete this topic Procedures Procedure Name Priority Date/Time Associated Diagnosis Comments PROPHYLAXIS - ADULT Routine 12/18/2023 3 :00 PM EDT Periodontal disease Subgingival dental calculus Dental plaque DIAGNOSTIC - DIAGNOSTIC IMAGING - INTRAORAL - COMPREHENSIVE SERIES OF RADIOGRAPHIC IMAGES Routine 11/26/2023 10:30 AM EDT Periodontal disease Dental caries COMPREHENSIVE ORAL EVALUATION - NEW OR ESTABLISHED PATIENT Routine 11/26/2023 10:30 AM EDT Periodontal disease Dental caries from Last 3 Months or Most Recently Relevant to Health Maintenance [facility] ST[facility] ADULT
== END 2024-09-27 10:34 | disposition home or self-care (01) ==
PROVIDERS: PCP Internal Medicine; Visit Provider Orthopaedic Surgery
DX: M17.0 Bilateral primary osteoarthritis of knee (principal)
CPT/HCPCS: 20610; 99213

== ENCOUNTER → 2024-09-27 09:58 | Outpatient (BNVA) | payer OTHER, SELFPAY | PROVIDERS: PCP Internal Medicine; Visit Provider Orthopaedic Surgery | DX: M17.0 Bilateral primary osteoarthritis of knee (principal) | CPT/HCPCS: 20610; 99212; J0665; J1100; J2003 ==

== ENCOUNTER 2024-10-20 11:18 | Outpatient (AMB) | payer OTHER, SELFPAY ==
[2024-10-20 11:19] VITALS: BP 132/74; PULSE 96; RESP 18; O2SAT 96; BMI 46.2
--- NOTE | 2024-10-20 11:19 | A.OFFVIS_ITS ---
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 Allergies adhesive tape Allergy (Intermediate, Verified 10/20/24 11:20) skin breakdown Medication List - Last Reconciled 10/20/24 by Chelsy Graff LPN cetirizine 10 mg PO DAILY PRN cholecalciferol (vitamin D3) (Vitamin D3) 2,000 units PO DAILY 90 days furosemide 10 mg (1/2 x 20 mg) PO QAM gabapentin 400 mg PO TID 30 days ipratropium bromide 2 sprays intranasal DAILY PRN ketotifen fumarate 0.025%(0.035%) drps ophthalmic (eye) magnesium oxide 400 mg PO DAILY 30 days metoprolol succinate ER 25 mg PO DAILY 90 days [id number]-FA-vit K 45 mg iron- 800 mcg-120 mcg (Bariatric Multivitamins) 1 cap PO .QD tramadol 50 mg PO BID PRN 30 days triamcinolone acetonide 2 sprays intranasal DAILY valsartan 80 mg PO DAILY vibegron (Gemtesa) 75 mg PO DAILY vitamin A 2 caps PO DAILY walker As directed zinc 25 mg PO DAILY HPI Comments Details: Urvashi presents to the office today for follow up chronic pain and chronic opioid therapy management. Patient is prescribed Tramadol 50mg po BID as needed. Patient arrived today with the expectation of having 0 pills, she presented 0 pills which were counted in the presence of two staff members and returned to the patient in the original prescription bottle. This demonstrates responsible attitude toward patient's opioid medications. Pain is reported today as 5/10 and last dose of pain medication was taken this morning. Patient denies side effects including somnolence, constipation, itching, dyspnea, rash, dizziness or weakness. She it is pain though not reach to proceed with injections at this time. A couple of years ago she underwent injections with Dr. Ratliff which provided her good results. If the pain worsens she will contact the office so that we can discuss repeating injections. Past visit with Dr Ratliff: Urvashi is a very pleasant 57 year old female who presents to the office for follow up chronic pain and chronic opioid therapy management. Last time she was in this office and she was prescribed tramadol 50 mg t.i.d.. She came today with excess of her pills. She brought to us 30 pills from November a and 20 pills from last month. She supposed to have no pills today in her possession. [facility] prescribed to much of the pills for her. We agreed that from now on I will be prescribing her to pills a day. We destroyed pills from November. That left her with 21 pills for this month and. I will restart her medication in 10 days from now which will be 05/09/2023. After we will establish that she is okay with his her medication prescriptions I will continue to see her once in 2 months for the appointments and pill counts. Patient denies any side effects including constipation, abdominal pain, somnolence, nausea, dizziness or falls. She previously had SCS trial with stimwave but did not tolerate, does not want to proceed with SCS at this time. Previously: She? went with me on transforaminal epidural spinal cord stimulator with stim wave technology.? After the procedure? she reported pain exacerbation in radicular distribution she reported numbness in left lower extremity.? During the procedure the insertion of the stimulating wires was quite difficult probably due to foraminal stenosis on those sites.? Her physical exam did not demonstrate any significant roots see below.? The CT scan which was performed to her in the emergency room did not demonstrate any hematoma or any peripheral nerve damage.? She went for EMG done by Dr. Whitfield.? Only peripheral neuropathy was found on EMG.? There were no acute radiculopathy secondary to needle penetration to the nerve roots.? The patient was treated with gabapentin and short course steroid therapy.? She reports that numbness is improving now.? She supposed to go for [email or web address] trial of spinal cord stimulator as we planned before...,.? [facility] Medical History Pain at surgical incision Urinary incontinence in female Stress incontinence Lumbar back pain with radiculopathy affecting left lower extremity GERD (gastroesophageal reflux disease) HTN (hypertension) Complex regional pain syndrome i of left lower limb Chronic pain syndrome Cardiac pacemaker in situ Cardiomyopathy Second degree AV block Allergies Osteoarthritis of left knee Spondylosis of lumbosacral spine with radiculopathy Back pain Surgical History History of hernia repair (~11/12/23) H/O gastric bypass Gastric bypass status for obesity Hx of cholecystectomy Hx of breast reduction, elective Hx of colonoscopy History of esophagogastroduodenoscopy (EGD) History of permanent cardiac pacemaker placement Family History Father Asthma Mother HTN (hypertension) Alzheimer disease Brother Cardiac pacemaker Sister Colon cancer Metastatic cancer Social History Household Members: None Housing: Apartment Do you presently have visiting nurse or other home services: Yes ([employer]) Alcohol intake: former Comment: counts correct Patient Tobacco Use Status: Former Tobacco user Cigarette Packs Per Day: 0.5 e-Cigarette/Vaping Use: Never Used Advance Directives Date on File: 11/12/23 service: No 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al status: unemployed and disabled 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 Cognitive needs: No Hearing needs: No Vision needs: Yes Review of Systems Const All systems reviewed & are unremarkable except as noted in HPI and below Physical Exam Vital Signs: Last Vital Signs Pulse 96 10/20/24 11:19 Resp 18 10/20/24 11:19 BP 132/74 10/20/24 11:19 Pulse Ox 96 10/20/24 11:19 Oxygen Delivery Method Room Air 10/20/24 11:19 BMI result Body Mass Index 46.2 General: awake, alert, oriented. Answers questions appropriately. Fully engaged in examination. Skin: warm, dry, intact without visible rashes or lesions. HEENT: Normocephalic. Hearing intact. Cardiac: External chest normal in appearance. Respiratory: No cough, audible wheezing or stridor. Abdomen: without gross distension. MS: No obvious swelling or deformities. Able to transition from sit to stand unassisted. Neurological: Oriented to person, place, time and situation. Thought process intact. Ambulates with cane for assistance. Psychiatric: Appropriate mood and affect. Good judgment and insight. Const Other: Results Reviewed Results Reviewed: 11/05/2021 EXAMINATION: CT LUMBAR SPINE WITHOUT CONTRAST FINDINGS: The heights of the lumbar vertebrae are well-maintained. Subtle grade 1 anterolisthesis of L4 over L5. Mild facet joint arthritic changes are noted at the lower lumbar spine. Posterior appendages are intact.? No evidence of any fracture present. No evidence of any paraspinal, soft tissue hematoma present. The visualized retroperitoneum grossly appears unremarkable. Significant motion artifacts are present. IMPRESSION: No CT evidence of any compression fracture or paraspinal hematoma. Mild grade 1 anterolisthesis of L4 over L5 and facet joint arthritic changes at lower lumbar spine. Assessment & Plan Assessment & Plan (1) Hip pain, left: Code(s): M25.552 - Pain in left hip Category: Medical (2) Lumbar pain: Code(s): M54.5 - Low back pain Category: Medical (3) Osteoarthritis of left hip: Code(s): M16.12 - Unilateral primary osteoarthritis, left hip Category: Medical Qualifiers: Osteoarthritis type: primary Qualified Code(s): M16.12 - Unilateral primary osteoarthritis, left hip (4) Spondylosis of lumbosacral spine with radiculopathy: Code(s): M47.27 - Other spondylosis with radiculopathy, lumbosacral region Category: Medical (5) Chronic pain syndrome: Code(s): G89.4 - Chronic pain syndrome Category: Medical (6) Complex regional pain syndrome i of left lower limb: Code(s): G90.522 - Complex regional pain syndrome I of left lower limb Category: Medical Plan Masspat was reviewed and without concerns. No obvious signs of diversion, abuse or misuse of the opioid medications. Refill sent for Tramadol 50mg po BID prn with 1 refill. Discussed options for interventional management, patient had good results with lumbar injections in the past. She is not ready to repeat but will contact the office if pain worsens. Patient to follow-up in the office in 2 months, sooner if needed. All questions and concerns have been answered and patient agrees with the plan. Stimwave trial L2-L3 L3-L4 done previously but patient reported increased numbness to lateral left thigh. Post procedure CT and EMG were completed which did not demonstrate evidence of acute pathology or radiculopathy. EMG did show evidence of peripheral neuropathy. Due to the side effects, neuropathy and interaction with her pacemaker she does not want to proceed with SCS at this time. Medications: Refilled tramadol 50 mg PO BID 30 days PRN 60 tabs 1RF pain Coding Level of Care Code Est Pt Level 4 (38308) Complex EM visit Add On G2211 Diagnoses Hip pain, left M25.552 Lumbar pain M54.5 Primary osteoarthritis of left hip M16.12 Osteoarthritis type: primary Spondylosis of lumbosacral spine with radiculopathy M47.27 Chronic pain syndrome G89.4 Complex regional pain syndrome i of left lower limb G90.522
== END 2024-10-20 11:34 | disposition home or self-care (01) ==
PROVIDERS: PCP Internal Medicine; Visit Provider Registered Nurse Emergency
DX: M25.552 Pain in left hip (principal); M54.50 Low back pain, unspecified; M16.12 Unilateral primary osteoarthritis, left hip; M47.27 Other spondylosis with radiculopathy, lumbosacral region; G89.4 Chronic pain syndrome; G90.522 Complex regional pain syndrome I of left lower limb
CPT/HCPCS: 99214; G2211

== ENCOUNTER → 2024-10-20 11:18 | Outpatient (BNVA) | payer OTHER, SELFPAY | PROVIDERS: PCP Internal Medicine; Visit Provider Registered Nurse Emergency | DX: G89.4 Chronic pain syndrome (principal); G90.522 Complex regional pain syndrome I of left lower limb; M25.552 Pain in left hip; M54.50 Low back pain, unspecified; M16.12 Unilateral primary osteoarthritis, left hip; M47.27 Other spondylosis with radiculopathy, lumbosacral region; Z51.81 Encounter for therapeutic drug level monitoring | CPT/HCPCS: 99212 ==

== ENCOUNTER 2024-11-17 10:57 | Outpatient (AMB) | payer OTHER, SELFPAY ==
--- NOTE | 2024-11-17 11:01 | A.OFFVIS_ITS ---
Vital Signs 11/17/24 11:03 Height 5 ft 2 in Weight 267 lb BMI 48.8 BP 126/56 L Blood Pressure Location Lt radial Position Sitting Respiration 16 Pulse 56 Pulse Source Pulse Oximeter Pulse Oximetry (%) 97 Oxygen Delivery Method Room Air Intake Visit Reasons: Pill count/ random UDS Intake Note: Pt states she last took tramadol 11/17/24 @ 10:30am. Pt will go for a random UDS at the conclusion of this visit Allergies adhesive tape Allergy (Intermediate, Verified 11/17/24 11:04) skin breakdown Medication List - Last Reconciled 11/17/24 by Chelsy Graff LPN cetirizine 10 mg PO DAILY PRN cholecalciferol (vitamin D3) (Vitamin D3) 2,000 units PO DAILY 90 days furosemide 10 mg (1/2 x 20 mg) PO QAM gabapentin 400 mg PO TID 30 days ipratropium bromide 2 sprays intranasal DAILY PRN ketotifen fumarate 0.025%(0.035%) drps ophthalmic (eye) magnesium oxide 400 mg PO DAILY 30 days metoprolol succinate ER 25 mg PO DAILY 90 days [id number]-vit K 45 mg iron- 800 mcg-120 mcg (Bariatric Multivitamins) 1 cap PO .QD tramadol 50 mg PO BID PRN 30 days triamcinolone acetonide 2 sprays intranasal DAILY valsartan 80 mg PO DAILY vibegron (Gemtesa) 75 mg PO DAILY vitamin A 2 caps PO DAILY walker As directed zinc 25 mg PO DAILY HPI Comments Details: Urvashi presents to the office today for follow up chronic pain and chronic opioid therapy management. Patient is prescribed Tramadol 50mg po BID as needed. Patient arrived today with 2 bottles: 1st bottle expectation of having 4 pills, she presented 6 pills; 2nd bottle expectation of having 58 pills, she presented 59 pills Both were counted in the presence of two staff members and returned to the patient in the original prescription bottle. This demonstrates responsible attitude toward patient's opioid medications. Pain is reported today as 5/10 and last dose of pain medication was taken at 10:38 this morning Patient denies side effects including somnolence, constipation, itching, dyspnea, rash, dizziness or weakness. She continues with left knee pain, currently under care of orthopedics. She has started physical therapy but has not noticed improvement as of yet. Past visit with Dr Ratliff: Urvashi is a very pleasant 57 year old female who presents to the office for follow up chronic pain and chronic opioid therapy management. Last time she was in this office and she was prescribed tramadol 50 mg t.i.d.. She came today with excess of her pills. She brought to us 30 pills from November a and 20 pills from last month. She supposed to have no pills today in her possession. [facility] prescribed to much of the pills for her. We agreed that from now on I will be prescribing her to pills a day. We destroyed pills from November. That left her with 21 pills for this month and. I will restart her medication in 10 days from now which will be 05/09/2023. After we will establish that she is okay with his her medication prescriptions I will continue to see her once in 2 months for the appointments and pill counts. Patient denies any side effects including constipation, abdominal pain, somnolence, nausea, dizziness or falls. She previously had SCS trial with stimwave but did not tolerate, does not want to proceed with SCS at this time. Previously: She? went with me on transforaminal epidural spinal cord stimulator with stim wave technology.? After the procedure? she reported pain exacerbation in radicular distribution she reported numbness in left lower extremity.? During the procedure the insertion of the stimulating wires was quite difficult probably due to foraminal stenosis on those sites.? Her physical exam did not demonstrate any significant roots see below.? The CT scan which was performed to her in the emergency room did not demonstrate any hematoma or any peripheral nerve damage.? She went for EMG done by Dr. Whitfield.? Only peripheral neuropathy was found on EMG.? There were no acute radiculopathy secondary to needle penetration to the nerve roots.? The patient was treated with gabapentin and short course steroid therapy.? She reports that numbness is improving now.? She supposed to go for Collections trial of spinal cord stimulator as we planned before...,.? [facility] Medical History (Reviewed 11/17/24 @ 11:41 by Nely Gilman, COMMERCIAL KITCHEN SERVICE TECHNICIAN, PHOTOVOLTAIC SUBCONTRACTOR) Pain at surgical incision Urinary incontinence in female Stress incontinence Lumbar back pain with radiculopathy affecting left lower extremity GERD (gastroesophageal reflux disease) HTN (hypertension) Complex regional pain syndrome i of left lower limb Chronic pain syndrome Cardiac pacemaker in situ Cardiomyopathy Second degree AV block Allergies Osteoarthritis of left knee Spondylosis of lumbosacral spine with radiculopathy Back pain Surgical History History of hernia repair (~11/12/23) H/O gastric bypass Gastric bypass status for obesity Hx of cholecystectomy Hx of breast reduction, elective Hx of colonoscopy History of esophagogastroduodenoscopy (EGD) History of permanent cardiac pacemaker placement Family History Father Asthma Mother HTN (hypertension) Alzheimer disease Brother Cardiac pacemaker Sister Colon cancer Metastatic cancer Social History Household Members: None Housing: Apartment Do you presently have visiting nurse or other home services: Yes ([employer]) Alcohol intake: former Comment: counts correct Patient Tobacco Use Status: Former Tobacco user Cigarette Packs Per Day: 0.5 e-Cigarette/Vaping Use: Never Used Advance Directives Date on File: 11/12/23 service: No 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al status: unemployed and disabled 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 Cognitive needs: No Hearing needs: No Vision needs: Yes Review of Systems Const All systems reviewed & are unremarkable except as noted in HPI and below Physical Exam Vital Signs: Last Vital Signs Pulse 56 11/17/24 11:03 Resp 16 11/17/24 11:03 BP 126/56 L 11/17/24 11:03 Pulse Ox 97 11/17/24 11:03 Oxygen Delivery Method Room Air 11/17/24 11:03 BMI result Body Mass Index 48.8 General: awake, alert, oriented. Answers questions appropriately. Fully engaged in examination. Skin: warm, dry, intact without visible rashes or lesions. HEENT: Normocephalic. Hearing intact. Cardiac: External chest normal in appearance. Respiratory: No cough, audible wheezing or stridor. Abdomen: without gross distension. MS: No obvious swelling or deformities. Able to transition from sit to stand unassisted. Neurological: Oriented to person, place, time and situation. Thought process intact. Ambulates with cane for assistance. Psychiatric: Appropriate mood and affect. Good judgment and insight. Const Other: Results Reviewed Results Reviewed: 11/05/2021 EXAMINATION: CT LUMBAR SPINE WITHOUT CONTRAST FINDINGS: The heights of the lumbar vertebrae are well-maintained. Subtle grade 1 anterolisthesis of L4 over L5. Mild facet joint arthritic changes are noted at the lower lumbar spine. Posterior appendages are intact.? No evidence of any fracture present. No evidence of any paraspinal, soft tissue hematoma present. The visualized retroperitoneum grossly appears unremarkable. Significant motion artifacts are present. IMPRESSION: No CT evidence of any compression fracture or paraspinal hematoma. Mild grade 1 anterolisthesis of L4 over L5 and facet joint arthritic changes at lower lumbar spine. Assessment & Plan Assessment & Plan (1) Hip pain, left: Code(s): M25.552 - Pain in left hip Category: Medical (2) Lumbar pain: Code(s): M54.5 - Low back pain Category: Medical (3) Osteoarthritis of left hip: Code(s): M16.12 - Unilateral primary osteoarthritis, left hip Category: Medical Qualifiers: Osteoarthritis type: primary Qualified Code(s): M16.12 - Unilateral primary osteoarthritis, left hip (4) Spondylosis of lumbosacral spine with radiculopathy: Code(s): M47.27 - Other spondylosis with radiculopathy, lumbosacral region Category: Medical (5) Chronic pain syndrome: Code(s): G89.4 - Chronic pain syndrome Category: Medical (6) Complex regional pain syndrome i of left lower limb: Code(s): G90.522 - Complex regional pain syndrome I of left lower limb Category: Medical Plan Masspat was reviewed and without concerns. No obvious signs of diversion, abuse or misuse of the opioid medications. No tramadol prescription needed today. Patient filled prescription yesterday, 1 refill remaining at the pharmacy. Random UDS collected today Patient to follow-up in the office in 2 months, sooner if needed. All questions and concerns have been answered and patient agrees with the plan. Stimwave trial L2-L3 L3-L4 done previously but patient reported increased numbness to lateral left thigh. Post procedure CT and EMG were completed which did not demonstrate evidence of acute pathology or radiculopathy. EMG did show evidence of peripheral neuropathy. Due to the side effects, neuropathy and interaction with her pacemaker she does not want to proceed with SCS at this time. Coding Level of Care Code Est Pt Level 4 (49344) Complex EM visit Add On G2211 Diagnoses Hip pain, left M25.552 Lumbar pain M54.5 Primary osteoarthritis of left hip M16.12 Osteoarthritis type: primary Spondylosis of lumbosacral spine with radiculopathy M47.27 Chronic pain syndrome G89.4 Complex regional pain syndrome i of left lower limb G90.522
[2024-11-17 11:03] VITALS: BP 126/56; PULSE 56; RESP 16; O2SAT 97; BMI 48.8
--- OUTSIDE RECORDS SUMMARY | 2024-11-17 13:12 | XMS_ITS | Continuity of Care Document ---
Author Organization madvertise e Address [facility] [address] [place] [address] Phone Care Team Providers Care Interior Design Professional Name Role Phone Jonna Garcia OD Unavailable Unavailable Allergies, Adverse Reactions, Alerts Substance Reaction Status Criticality No Known Allergies Active No Inform ation Medications Medication Instructions Dosage Effective Dates (start - stop) Status Comments lisinopril 10 mg tablet TAKE 1 TABLET BY ORAL ROUTE EVERY DAY - Active -FLUOXETINE 10MG [...] mouth daily - Active Procedures Procedure Date OFFICE/OUTPATIENT VISIT, EST TOBACCO NON-USER SYST BP >= 140 MM HG6 IT DIAST BP 80-89 MM HG WEIGHT RECORDED BODY MASS INDEX DOCD MED LIST DOCD IN [facility] OFFICE/OUTPATIENT VISIT, NEW TOBACCO NON-USER SYST BP LT 130 MM HG Sys bp less 140 DIAST BP < 80 MM HG Vela bp less 90 WEIGHT RECORDED BODY MASS INDEX DOCD MED LIST DOCD IN [facility] OFFICE/OUTPATIENT VISIT, EST TOBACCO NON-USER SYST BP LT 130 MM HG Sys bp less 140 DIAST BP < 80 MM HG Vela bp less 90 DSCHRG MED/CURRENT MED MERGE WEIGHT RECORDED BODY MASS INDEX DOCD MED LIST DOCD IN [facility] OFFICE/OUTPATIENT VISIT, NEW OFFICE/OUTPATIENT VISIT, EST URINALYSIS [...] Diagnoses Date Provider Providers Copied on Encounter [facility], [place], [address] [place] [address] [address], [place], [place], [id number], [place] tel:[phone] [facility] No Information Jose Coyle. [address] [facility], [facility] [address], [place], [place], [id number], [place]. tel:[phone] OFFICE/OUTPA TIENT VISIT, EST [facility], [address] [place] [address], [id number], [place] tel:[phone] [facility] Medication Review/Polyph armacy (chief complaint)hyp ertension (chief complaint) Body mass index (BMI) 37.0-37.9, adultDietary counseling and surveillanceE ssential (primary) hypertensionP rediabetesHyp erlipidemia, unspecified hyperlipidemi a type 5 Gamboa Elyse. [address], [address], [place], [place], [id number], [place]. tel:[phone] [facility] [place], [address] [place] [address], [id number], [place] tel:[phone] [facility] x blurry va (chief complaint) Combined forms of age-related cataract, bilateral 5 Jose Coyle. [address], [place] [address], [place], [id number], [place]. tel:[phone] [facility] [place], [address] [place] [address], [id number], [place] tel:[phone] [facility] No Information 3 Lucas Delgadillo Katia. [address], [place], [place], [id number], [place]. tel:[phone] OFFICE/OUTPA TIENT VISIT, [facility], [address] [place] [address], [id number], [place] tel:[phone] [facility] Growth (chief complaint)Whit wth (chief complaint) Peroneal ganglion cystChronic pain of right ankle 3 Michael Frankel. [address], [place], [place], [id number], [place]. tel:[phone] OFFICE/OUTPA TIENT VISIT, [facility], [address] [place] [address], [id number], [place] tel:[phone] [facility] Follow Up of Depression (chief complaint)Fol low Up of hypertension (chief complaint) Body mass index (BMI) 35.0-35.9, adultDietary counseling and surveillanceE ssential hypertensionM oderate major depression 3 Lucas Montalvo. [address] [facility] [address], [place], [id number], [place]. tel:[phone] [facility] [place], [address] [place] [address], [id number], [place] tel:[phone] [facility] Vitamin D insufficiency 3 Lucas Montalvo. [address] [facility] [address], [place], [id number], [place]. tel:[phone] OFFICE/OUTPA TIENT VISIT, [facility], [address] [place] [address], [id number], [place] tel:[phone] [facility] hypertension (chief complaint)dep ression (chief complaint) Body mass index (BMI) 34.0-34.9, adultDietary counseling and surveillanceM oderate major depressionEss ential hypertensionB reast cancer screening 3 Lucas Montalvo. [address] [facility] [address], [place], [id number], [place]. tel:[phone] [facility] [place], [address] [place] [address], [id number], [place] tel:[phone] [facility] Degenerative lumbar discRetrolist hesis of vertebrae 2 No Information OFFICE/OUTPA TIENT VISIT, [facility], [address] [place] [address], [id number], [place] tel:[phone] [facility] back pain (chief complaint) Body mass index (BMI) 35.0-35.9, adultChronic left-sided low back pain with left-sided sciatica 2 Eliza Fu. [address], [place], [place], [id number], [place]. tel:[phone] OFFICE/OUTPA TIENT VISIT, [facility], [address] [place] [address], [id number], [place] tel:[phone] [facility] UTI (chief complaint) Body mass index (BMI) 35.0-35.9, adultCystitis Essential (primary) hypertension Nov-2 2 [facility]. [address], [address], [place], [place], [id number], [place]. tel:[phone] OFFICE/OUTPA TIENT VISIT, [facility], [address] [place] [address], [id number], [place] tel:[phone] [facility] hypertension (chief complaint) Body mass index (BMI) 35.0-35.9, adultEssentia l (primary) hypertension 0 No Information OFFICE/OUTPA TIENT VISIT, [facility], [address] [place] [address], [id number], [place] tel:[phone] [facility] hypertension (chief complaint) Body mass index (BMI) 35.0-35.9, adultHyperlip idemia, unspecified hyperlipidemi a typeEssential (primary) hypertension 9 No Information OFFICE/OUTPA TIENT VISIT, [facility], [address] [place] [address], [id number], [place] tel:[phone] [facility] hypertension (chief complaint)ER Follow Up (chief complaint)Add itional Information (chief complaint) Body mass index (BMI) 35.0-35.9, adultEssentia l (primary) hypertensionI ntermittent palpitations Nov-0 9 No Information [facility] [place], [address] [place] [id number], [place] tel:[phone] [facility] Abnormal mammogram of right breast Nov- 9 No Information OFFICE/OUTPA TIENT VISIT, [facility], [address] [place] [address], [id number], [place] tel:[phone] [facility] Follow Up of Weight management (chief complaint)Add itional info (chief complaint) Body mass index (BMI) 35.0-35.9, adultHyperlip idemia, unspecified hyperlipidemi a typeObesity (BMI 30-39.9) 9 No Information OFFICE/OUTPA TIENT VISIT, [facility], [address] [place] [address], [id number], [place] tel:[phone] [facility] annual exam (chief complaint) Body mass index (BMI) 35.0-35.9, adultEncntr for park keeper exam (general) (routine) w/o abn findingsCervi hannah cancer screeningBrea st cancer screeningVagi nal discharge 9 No Information OFFICE/OUTPA TIENT VISIT, [facility], [address] [place] [address], [id number], [place] tel:[phone] [facility] Ocular Discomfort (chief complaint) Peripheral pterygium, progressive, bilateral 9 [facility] Davian. [address] [place], [place], [id number], [place]. tel:[phone] OFFICE/OUTPA TIENT VISIT, [facility], [address] [place] [address], [id number], [place] tel:[phone] [facility] Obesity (chief complaint)Ski n lesion (chief complaint) Body mass index (BMI) 36.0-36.9, adultColon cancer screeningObes ity (BMI 30-39.9)Vener eal disease screeningNume zelalem skin molesConstipa tion, unspecified constipation typeEssential (primary) hypertension 9 No Information OFFICE/OUTPA TIENT VISIT, [facility], [address] [place] [address], [id number], [place] tel:[phone] [facility] Weight Management (chief complaint)Obe sity (chief complaint) PrediabetesBo dy mass index (BMI) 36.0-36.9, adultPterygiu m of both eyesObesity (BMI 30-39.9) 9 No Information OFFICE/OUTPA TIENT VISIT, [facility], [address] [place] [address], [id number], tel:[phone] [facility] hypertension (chief complaint) Body mass index (BMI) 29.0-29.9, adultGERD with esophagitisEn counter for screening for nutritional disorderEssen tial (primary) hypertensionL eft anterior knee pain 8 No Information OFFICE/OUTPA TIENT VISIT, [facility], [address] [place] [address], [id number], tel:[phone] [facility] Follow up on lab test(s) (chief complaint) Body mass index (BMI) 29.0-29.9, adultEssentia l (primary) hypertensionP rediabetesEle vated LDL cholesterol levelVitamin D deficiency 8 No Information OFFICE/OUTPA TIENT VISIT, [facility], [address] [place] [address], [id number], tel:[phone] [facility] est care (chief complaint)hyp ertension (chief complaint)hyp [...] Female Chief Complaint And Reason For Visit No Information Reason For Referral Reason For Referral No Information Plan Of Treatment Date Type Action Status Goal Unhealthy drug u se screening. Due on due Goal Substance Abuse Screen. Due on due Goal Hep C Ab w/Rflx PCR Genotype,LIPA. Due on due Goal Hep C Ab. Due on due Goal Hep C Ab w/Rflx to Hep C RNA, Quant, RT-PCR. Due on due Goal CT-Colonography. Due on due Goal FIT. Due on due Goal Colonoscopy. Due on 022 due Goal Tobacco Use Scre ening. Due on due Goal FOBT. Due on due Goal Zoster vaccine ( ). Due on due Goal Sigmoidoscopy. Due on due Goal Zoster vaccine. Due on due Goal Tdap. Due on due Goal Lipid panel. Due on 028 due Goal Depression scree kathleen. Due on due Goal Vision Screen. Due on due Goal Hepatitis C scre ening. Due on due Goal Influenza vaccin e. Due on due Goal FIT-DNA. Due on due Goal Td vaccine. Due on due Goal Hepatitis Panel (incl Hep A Tot, Hep B Tot) w/Rflx. Due on due Goal Hep C Ab w/Rflx PCR Genotype,LIPA. Due on due Goal FIT. Due on due Goal Hepatitis Panel (incl Hep A Tot, Hep B Tot) w/Rflx. Due on due Goal Hep C Ab w/Rflx to Hep C RNA, Quant, RT-PCR. Due on due Goal Substance Abuse Screen. Due on due Goal Depression scree kathleen. Due on due Goal Colonoscopy. Due on 020 due Goal FIT-DNA. Due on due Goal Tobacco Use Scre ening. Due on due Goal Td vaccine. Due on due Goal Unhealthy drug u se screening. Due on due Goal Influenza vaccin e. Due on due Goal Zoster vaccine ( ). Due on due Goal Hepatitis C scre ening. Due on due Goal Sigmoidoscopy. Due on due Goal CT-Colonography. Due on due Goal Hep C Ab. Due on due Goal Zoster vaccine. Due on due Goal Lipid panel. Due on 028 due Goal FOBT. Due on due Goal Vision Screen. Due on due Goal Tdap. Due on due Goal Lifestyle education regardin g diet completed Goal Td vaccine. Due on 25 due [...] vaccine ( 1st). Due on due Goal Depression scree kathleen. [...] vaccine ( ). Due on due Goal Substance Abuse Screen. Due on due Goal Hep C Ab. Due on due Goal Td vaccine. Due on due Goal Tdap. Due on due Goal FIT. Due on due Goal FOBT. Due on due Goal Unhealthy drug u se screening. Due on due Goal Vision Screen. Due on due Goal Hepatitis Panel (incl Hep A Tot, Hep B Tot) w/Rflx. Due on due Goal Influenza vaccin e. Due on due Goal CT-Colonography. Due on [...] Lifestyle education regardin g diet completed Goal Vision Screen. Due on due Goal Depression scree kathleen. Due on due Goal Sigmoidoscopy. Due on due Goal FIT. Due on due Goal Unhealthy drug u se screening. Due on due Goal Hep C Ab. Due on due Goal Colonoscopy. Due on due Goal Td vaccine. Due on due Goal Tdap. Due on due Goal Influenza vaccin e. Due on due Goal Zoster vaccine ( ). Due on due Goal FIT-DNA. Due on [...] Lipid panel. Due on 028 due Goal Hep C Ab w/Rflx PCR Genotype,LIPA. Due on due Goal Hepatitis Panel (incl Hep A Tot, Hep B Tot) w/Rflx. Due on due Goal Zoster vaccine ( ). Due on due Goal FIT. Due on due Goal CT-Colonography. Due on due Goal Hep C Ab. Due on due Goal Colonoscopy. Due on 022 due Goal Tdap. Due on due Goal Influenza vaccin e. Due on due Goal FOBT. Due on due Goal Depression scree kathleen. Due on due Goal Hepatitis C scre ening. Due on due Goal Vision Screen. Due on due Goal Td vaccine. Due on due Goal HPV. Due on due Goal Unhealthy drug u se screening. Due on due Goal Substance Abuse Screen. Due on due Goal Sigmoidoscopy. Due on due Goal Hep C Ab w/Rflx PCR Genotype,LIPA. Due on due Goal Hep C Ab w/Rflx to Hep C RNA, Quant, RT-PCR. Due on due Goal FIT-DNA. Due on due Goal Lifestyle education regardin [...] due Goal Colonoscopy. Due on due Goal Hep C Ab. Due on due Goal CT-Colonography. Due on due Goal Lifestyle education regardin g diet completed Goal Mammogram. Due on due Goal Tdap. [...] Goal Td vaccine. Due on due Goal Zoster vaccine ( 1st). Due on due Goal FIT-DNA. Due on due Goal HPV. Due on due Goal Unhealthy drug u se screening. Due on due Goal FIT. Due on due Goal Hepatitis C scre ening. Due on due Goal Dietary manageme nt education, guidance, and counseling completed Goal Pap/HPV testing. Due on due [...] Goal Vision Screen. Due on due Goal Sigmoidoscopy. Due on due Goal Mammogram. Due on 1 due Goal Hep C Ab. Due on due Goal Lifestyle education regardin [...] Goal Colonoscopy. Due on 019 due Goal Sigmoidoscopy. Due on due Goal [...] due Goal FOBT. Due on due Goal Substance Abuse Screen. Due on due Goal Tdap. Due [...] Goal Colonoscopy. Due on 019 due Goal Lifestyle education regardin g diet [...] Lifestyle education regardin g diet completed Goal FOBT. Due on due Goal Substance Abuse Screen. [...] Td vaccine. Due on 19 due Goal Vision Screen. Due on due [...] ordered Appointment Urvashi Lewis Appointment Urvashi Lewis Patient Education Gastroesophage al Reflux Disease (GERD~ completed Patient Education Knee Pain: Care Instruc tions completed Future Order: Lab Order CBC (INC LUDES DIFF/PLT) ([id number]), Sent on: Sent Future Order: Lab Order COMPREHE NSIVE METABOLIC PANEL ([id number]), Sent on: Sent Future Order: Lab Order HEMOGLOB IN A1C ([id number]), Sent on: Sent Future Order: Lab Order LIPID NE OFILE ([id number]), Sent on: Sent Future Order: Lab Order TSH AND FREE T4 ([id number]), Sent on: Sent Future Order: Radiology Order Ma mmogram: Screening - Bilateral ([id number]), Ordered on: Ordered Future Order: Radiology Order X- ray L-Spine: 4-5 Views ([id number]), Added on: New Future Order: Lab Order CBC (INC LUDES DIFF/PLT) ([id number]), Sent on: Sent Future Order: Lab Order COMPREHE NSIVE METABOLIC PANEL ([id number]), Sent on: Sent Future Order: Lab Order LIPID PA SETH ([id number]), Sent on: Sent Future Order: Lab Order TSH W/RE FLEX TO FREE T4 ([id number]), Sent on: Sent Future Order: Lab Order VITAMIN D,25-OH,TOTAL,IA ([id number]), Sent on: Sent Future Order: Lab Order HEMOGLOB IN A1C ([id number]), Sent on: Sent Future Order: Lab Order MICROALB UMIN, RANDOM URINE (W/CREATININE) ([id number]), Sent on: Sent Future Order: Radiology Order Ul trasound, Breast, Complete ([id number]), Added on: New Future Order: Radiology Order Di gital Diagnostic Mammogram, Unilateral R ([id number]), Added on: New Future Order: Radiology Order Di gital Screening Mammogram, Bilateral ([id number]), Added on: New Future Order: Lab Order FECAL GL OBIN BY IMMUNOCHEMISTRY ([id number]), Ordered on: Ordered History Of Present Illness Encounter Date Complaint History Of Prese nt Illness hypertension The HTN started in 2019. Risk factors include age over age 60, depression, high salt intake, inactive lifestyle and obesity. Associated symptoms include headache. Pertinent negatives include chest pain, claudication, confusion, dyspnea, fatigue, irregular heartbeat/palpitations, nausea, transient weakness, tremor, visual disturbances and vomiting. Medication Review/Polypharmacy r efill includes Lisinopril, last taken 3 years ago. She was being seen in [place] for HTN and getting her medication there. She has not been to [place] in 3 years. She is having PHILLIPS's and feeling tired. Denies cp, sob and blurry vision. She does get palpitations at times, which she can decrease with taking deep breathes. It only happens every couple of months and only lasts for a few seconds. Last time she did any labs was 3 years ago. She is okay with me ordering labs today, she is private pay. No swelling in her ankles or legs. She states she has gained some weight recently. No family Hx of LA's or strokes, no heart problems. No family Hx of DM or thyroid problems. x blurry va Ou not wearing s [...] due to not having insurance.Patient going to [place] for two months. hypertension Risk factors inc [...] disturbances and vomiting. Additional Information Seen at [facility] on 12/[facility]/18 for near syncope episode [...] lab test(s) General labs hypertension Additional infor emmaion: patient states that she needs a refill [...] Information Instructions Date Instruction Additional Infor juliette Will check labs and call pt with results. Related to Prediabetes Will check labs and call pt with results. Related to Hyperlipidemia, unspecified hyperlipidemia type Discussed importance of taking medication as Rx'd. Will restart her Lisinopril, order labs and have pt see me for a FU BP check and labs in a month. FU sooner if problems. Discussed reasons to go to ER. Instructed to decrease salt intake and get daily exercise. Encouraged weight loss. Related to Essential (primary) hypertension Giving encouragement to exercise Related to Body mass index (BMI) 37.0-37.9, adult Lifestyle education regarding di et Related to Body mass index (BMI) 37.0-37.9, adult Dietary needs education Related to Dietary counseling and surveillance Impression/Plan Related to Combi ramin forms of [...] a psychiatrist, psychologist, nurse, or social media marketer)--DeclinedSee someone right away if you want to hurt or kill yourself! ??? If you ever feel like you might hurt yourself or someone else, do one of these things:-Call your doctor or nurse and tell them it is urgent-Call for an ambulance (in the and [place], dial )-Go to the emergency room at your local hospital-Call the Personal On Demand Suicide Prevention Lifeline: Related to Moderate major [...] a psychiatrist, psychologist, nurse, or social media marketer)--Referred.See someone right away if you want to [...] or as needed. 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 Instructed NSAIDs are not indicated for care home use. Instructed that this medication should not [...] (BMI) 29.0-29.9, adult Assessments Type Assessment Date No Information Patient Care Teams Name Effective Dates (start - stop) Status Members No Information
--- OUTSIDE RECORDS SUMMARY | 2024-11-17 13:12 | XMS_ITS | Clinical Summary ---
Author Organization [employer] Address [address] [facility] [facility] [address] [place] [address] Care Team Providers Care Storm Door Maker Name Role Phone Unavailable Primary Care Provider [...] Active beta carotene (vitamin A) 3 MG (86889 UT) capsule TOME 2 C PSULAS POR [...] Mass Index - - Plan of Treatment Upcoming Encounters Date Type Department Care Team (Late st Contact Info) Description 12/21/2024 2:00 PM EDT Office Visit [facility] [address] [place] [address] Akilah Shaikh Health Maintenance Due Date Last Done Comments CT Colonography 1964 Colonoscopy 1964 Colorectal Cancer Screening 1964 Depression Screening 1964 FIT DNA/Cologuard 1964 FIT 1964 FOBT 1964 HIV Screening 1964 Lipid Panel 1964 SDOH Screening 1964 Sigmoidoscopy 1964 Alcohol/Substance Use Screening 1976 Hepatitis C Screening 1982 Pap Smear 1985 Cervical Cancer Screening 1994 HPV/Cotest 1994 Mammogram 2004 COVID-19 Vaccine (4 - 2023-2 5 season) 2024 08/20/2021, 11/29/2020, 11/08/2020 Dental Oral Exam 05/29/2024 11/26/2023, 08/26/2017 Dental Prophylaxis 06/19/2024 12/18/2023, 11/01/2008 Dental X-Ray: Bitewings 11/26/2024 11/26/19 24, 08/26/2017, 01/30/2009 Pneumococcal Vaccine: 50+ Years (2 of 2 - PCV) 02/10/2025 02/11/2024 Tobacco Screening 02/25/2025 02/26/2024 Dental X-Ray: Full Mouth 11/26/2026 024, 10/16/2023, 08/26/2017 DTaP/Tdap/Td Vaccines (2 - T d or Tdap) 10/15/2033 10/15/2023 RSV Patients and Patients Aged 60 years or older (1 - 1-dose 75+ series) 2039 Zoster Vaccines Completed 04/30/2024, 02/11/2024 Influenza Vaccine Completed 08/09/2024, 11/12/2023, 08/20/2021 HIB Vaccines Aged Out No longer eligi [...] Periodontal disease Subgingival dental calculus Dental plaque INTRAORAL - COMPLETE SERIES OF RADIOGRAPHIC IMAGES Routine 11/26/2023 10:30 AM EDT Periodontal disease Dental caries COMPREHENSIVE ORAL EVALUATION - NEW OR ESTABLISHED PATIENT Routine 11/26/2023 10:30 AM EDT Periodontal disease Dental caries from Last 3 Months or Most Recently Relevant to Health Maintenance Insurance DENTAL-[facility] MEDICAID STAND ADULT
== END 2024-11-17 11:29 | disposition home or self-care (01) ==
LOC: HO.PMC 10:58
PROVIDERS: PCP Internal Medicine; Visit Provider Registered Nurse Emergency
DX: M25.552 Pain in left hip (principal); M54.50 Low back pain, unspecified; M16.12 Unilateral primary osteoarthritis, left hip; M47.27 Other spondylosis with radiculopathy, lumbosacral region; G89.4 Chronic pain syndrome; G90.522 Complex regional pain syndrome I of left lower limb
CPT/HCPCS: 99214; G2211

== ENCOUNTER → 2024-11-17 10:57 | Outpatient (BNVA) | payer OTHER, SELFPAY | PROVIDERS: PCP Internal Medicine; Visit Provider Registered Nurse Emergency | DX: Z51.81 Encounter for therapeutic drug level monitoring (principal); F11.20 Opioid dependence, uncomplicated; M25.552 Pain in left hip; M16.12 Unilateral primary osteoarthritis, left hip; M54.50 Low back pain, unspecified; M47.27 Other spondylosis with radiculopathy, lumbosacral region; G90.522 Complex regional pain syndrome I of left lower limb; G89.4 Chronic pain syndrome | CPT/HCPCS: 99212 ==

== ENCOUNTER 2024-11-22 10:20 | Outpatient (AMB) | payer OTHER, SELFPAY ==
--- NOTE | 2024-11-22 10:11 | MHC.OFFVIS ---
Intake Visit Reasons: Cystoscopy Intake Note: Patient is present for cysto Urology Medication:gemtesa,furosemide Antibiotic Allergy:none Blood Thinner:vitamin k Pre School Manager Required: Yes Pre School Manager Name: [id number] Information Interpreted: non-clinical & clinical Allergies adhesive tape Allergy (Intermediate, Verified 01/18/25 15:07) skin breakdown HPI Comments Details: 11/22/24--Here for office cystoscopy. S/P Botox bladder injection 03/28/24--Urvashi is a Samoan-speaking female she has been followed due to overactive bladder symptoms urge urinary incontinence. The patient is also prescribed Gemtesa. Urvashi complains that since I performed the urodynamics procedure she has noted spraying of urination. She feels that there is something inside blocking. Cystoscopy findings: mild trabeculations, no suspicious bladder lesions visualized, no evidence of urethral scarring. 06/28/24--S/P Botox bladder injection 03/28/24--Urvashi is a Samoan-speaking female she has been followed due to overactive bladder symptoms urge urinary incontinence. The patient is also prescribed Gemtesa. Urvashi complains that since I performed the urodynamics procedure she has noted spraying of urination. She feels that there is something inside blocking. I have instructed her not to push when she is urinating to see if this may help. I want her to stop the gemtesa for 7 days to see if there is any difference in the voiding pattern. She can resume the gemtesa if her urge symptoms worsen and she has no improvement in the spraying. Will further evaluate with cystoscopy if symptoms persist. Bladder scan PVR 249 mL. 03/25/24-- Office procedure: Bladder botox injection--100 units 02/20/24-- Here for urodynamics. CMG parameters detailed below. Interpretation: During the filling phase there was normal sensation, sensory urgency was noted, strong urge was noted associated with detrusor contraction; leakage was not observed during cough or valsalva stress. Findings consistent with detrusor overactivity. EMG- Appropriate changes in the waveforms were noted during the filling phase. The patient was not able to completely empty with the UDS catheters in place. The patient voided 300 mL in the bathroom after catheters removed. The patient has been on Myrbetriq 50 mg for symptoms of urinary urgency. She states the medication has not helped with her urinary symptoms. She has been doing Kegel exercises. I have discussed alternative treatment options to include trial of additional anti muscarinics, Botox bladder injection was discussed. Discussed Plan for Botox bladder instillation. 09/29/23--Telehealth follow-up, as she has the Flu. she was last seen in the office on 06/23/2023 for office cystoscopy, findings bladder wall thickening. She is on anticholinergics for lower urinary tract symptoms of urgency and incontinence. Today she c/o's of spraying of urinary stream, she does not feel the medication is working. Plan-discussed Will sche urodynamics. 06/23/23?She is followed today for a cystoscopy procedure. The patient is a Samoan-speaking female. A certified interpreter and translator was present during the visit. She has comorbidities, obesity, sleep apnea. She denies history of a hysterectomy. She has had 3 pregnancies, 2 vaginal deliveries, 1 miscarriage.?She was last seen by me on 03/20/23 for urinary frequency. The patient was prescribed Myrbetriq 50 mg daily for OAB symptoms. Ordered a renal ultrasound to be obtained before the Cystoscopy during that time. I reviewed the retroperitoneum US results from 06/12/23 revealed right-sided pelvic fullness without nephrolithiasis.? Postvoid bladder volume of 22.2 mL with visualization of the bilateral ureteral jets. Cystoscopy findings: mild bladder wall thickening. bladder Filled with 200 mL sterilel water. After removing the cystoscope, Pelvic examination--performed, there was no leakage with valsalva, and minimal leakage with cough in supine position, no significant vaginal prolapse. vaginal atrophy. Plan: Continue Myrbetriq 50 mg daily. Ordered vagifem 10 mEq twice a week. Patient instructed on kegel exercises and to do 10 - 20 repetitions twice a day. Follow-up in 4 months. [facility] Medical History Pain at surgical incision Urinary incontinence in female Stress incontinence Lumbar back pain with radiculopathy affecting left lower extremity GERD (gastroesophageal reflux disease) HTN (hypertension) Complex regional pain syndrome i of left lower limb Chronic pain syndrome Cardiac pacemaker in situ Cardiomyopathy Second degree AV block Allergies Osteoarthritis of left knee Spondylosis of lumbosacral spine with radiculopathy Back pain Surgical History History of hernia repair (~11/12/23) H/O gastric bypass Gastric bypass status for obesity Hx of cholecystectomy Hx of breast reduction, elective Hx of colonoscopy History of esophagogastroduodenoscopy (EGD) History of permanent cardiac pacemaker placement Family History Father Asthma Mother HTN (hypertension) Alzheimer disease Brother Cardiac pacemaker Sister Colon cancer Metastatic cancer Social History Household Members: None Housing: Apartment Do you presently have visiting nurse or other home services: Yes (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 Information consent for procedure given to the patient. Discussed technical aspects, risks, benefits and alternatives in full. Addressed all of the patient's questions and concerns regarding the procedure. The patient demonstrated knowledge and understanding. They wish to proceed with this procedure. Preparation The patient was prepped in the usual manner. A drafting engineer was present and in the room. Genitalia was prepped with betadine solution in a sterile manner. Lidocaine Jelly 2% was placed into the urethra and 16Fr flexible Olympus cystoscope was inserted into the meatus after adequate lubrication. Time out per protocol performed. Bladder Inspection Bladder Inspection: The bladder was inspected in its entirety with utilization retroflexion displaying: Tumor(s): no suspicious bladder lesions visualized Trabeculation: mild Mucosal Erthema: NA Orifices: normal shape and position Urethra: normal Cystoscopy findings: WNL, no suspicious bladder lesions visualized [id number] DISPOSABLE SCOPE URO-G FLEXIBLE SCOPE Procedure code (CPT) selection complete Office Meds lidocaine HCl 2 % mucosal jelly in applicator Performing Provider: Sergo Jackson MD Performing Location[facility] Administered by: Hardy Acevedo LPN on 11/22/24 10:53 Dose Route Admin Location Dispensed Lot Number Expiration Date NDC Document Management Specialist 10 mL intra-urethral 10 mL ciprofloxacin HCl 500 mg tablet Performing Provider: Sergo Jackson MD Performing Location: [facility] [place] Administered by: Hardy Acevedo LPN on 11/22/24 10:53 Dose Route Admin Location Dispensed Lot Number Expiration Date NDC Document Management Specialist 500 mg PO 1 tab phenazopyridine 200 mg tablet Performing Provider: Sergo Jackson MD Performing Location: [facility] [place] U[facility] Administered by: Hardy Acevedo LPN on 11/22/24 10:53 Dose Route Admin Location Dispensed Lot Number Expiration Date NDC Document Management Specialist 200 mg PO 1 tab Results AMB Urinalysis, Automated UA Leukoctes 0 Grace/uL Last Edit by Margaret Kim on 11/22/24 10:52 UA Nitrite Negative Last Edit by Margaret Kim on 11/22/24 10:52 UA Urobilinogen 3.5 mg/dL Last Edit by Margaret Kim on 11/22/24 10:52 UA Protein 0 mg/dL Last Edit by Margaret Kim on 11/22/24 10:52 UA pH 5.5 Last Edit by Margaret Kim on 11/22/24 10:52 UA Blood 10 Rudi/uL Last Edit by Margaret Kim on 11/22/24 10:52 UA Specific [place] 1.015 Last Edit by Margaret Kim on 11/22/24 10:52 UA Ketone Negative Last Edit by Margaret Kim on 11/22/24 10:52 UA Bilirubin 0 mg/dL Last Edit by Margaret Kim on 11/22/24 10:52 UA Glucose 0 mg/dL Last Edit by Margaret Kim on 11/22/24 10:52 Results Reviewed Results Reviewed: Laboratory Last Values Urine pH (Auto) 5.5 11/22/24 10:48 Specific [place] (Auto) 1.015 11/22/24 10:48 Urine Protein (Auto) 0 mg/dL 11/22/24 10:48 Glucose (UA)(Auto) 0 mg/dL 11/22/24 10:48 Urine Ketones (Auto) Negative 11/22/24 10:48 Urine Blood (Auto) 10 Rudi/uL 11/22/24 10:48 Urine Nitrite (Auto) Negative 11/22/24 10:48 Urine Bilirubin (Auto) 0 mg/dL 11/22/24 10:48 Urine Urobilinogen (Auto) 3.5 mg/dL 11/22/24 10:48 Leukocyte Esterase (Auto) 0 Grace/uL 11/22/24 10:48 Date of Service: 06/12/23 EXAMINATION:? US RETROPERITONEAL COMPLETE (RENAL) CLINICAL INFORMATION: Frequency of micturition. COMPARISON:? Ultrasound abdomen complete 09/12/2016. FINDINGS:? RIGHT KIDNEY: 10.4 x 4.6 x 4.5 cm (SAG x AP x TRV). The kidney is normal in size, contour, and echogenicity. Renal cortical thickness is normal. No calculi or focal parenchymal lesions. No hydronephrosis. Right-sided pelvic fullness. LEFT KIDNEY: 10.5 x 6.8 x 5.9 cm (SAG x AP x TRV). The kidney is normal in size, contour, and echogenicity. Renal cortical thickness is normal. No calculi or focal parenchymal lesions. No hydronephrosis. BLADDER: Well distended and normal. Bilateral ureteral jets are demonstrated. Prevoid bladder volume is 437 mL. Postvoid bladder volume is 22.2 mL. IMPRESSION:? 1.? Right-sided pelvic fullness without nephrolithiasis. 2.? Postvoid bladder volume of 22.2 mL with visualization of the bilateral ureteral jets. Assessment & Plan Assessment & Plan (1) OAB (overactive bladder): Code(s): N32.81 - Overactive bladder Category: Medical (2) Urinary urgency: Code(s): R39.15 - Urgency of urination Category: Medical (3) Urine stream spraying: Code(s): R39.198 - Other difficulties with micturition Category: Medical Plan OAB, s/p botox, pt complains of change in urinary stream post botox procedure, cystoscopy no urethral scarring, no new abnormalities observed, mild bladder wall thickening, stable. Orders: Orders AMB Cystoscopy 11/22/24 R39.198 - Other difficulties with micturition, R39.15 - Urgency of urination, N32.81 - Overactive bladder, R32 - Unspecified urinary incontinence AMB Urinalysis Automated 11/22/24 Z13.9 - Encounter for screening, unspecified Patient Instructions: The patient had an opportunity to ask questions regarding treatment plan. The patient expressed understanding and agreement with the above treatment plan. The patient is aware they should contact our office by phone for worsening of their current condition or the appearance of new symptoms. Compliance is encouraged with any medications and followup testing that is ordered. It is a privilege to be allowed the opportunity to participate in the urologic care of your patient. If you have any questions or concerns regarding treatment for the above conditions please do not hesitate to contact me. The office telephone contact is [phone]. This note is constructed in part using voice recognition software. While every effort has been made to ensure accuracy all around presser errors may have been included. Yours sincerely, Sergo Jackson MD Coding Level of Care Code Procedure Only Diagnoses OAB (overactive bladder) N32.81 Urinary urgency R39.15 Urine stream spraying R39.198 CPT Codes Cystoscopy - CPT: 93400-[id number] ([id number])
== END 2024-11-22 11:52 | disposition home or self-care (01) ==
LOC: HO.HUSH 10:21
PROVIDERS: PCP Internal Medicine; Visit Provider Urology
DX: R39.198 Other difficulties with micturition (principal); R39.15 Urgency of urination; N32.81 Overactive bladder; R32 Unspecified urinary incontinence; Z13.9 Encounter for screening, unspecified
CPT/HCPCS: 52000

== ENCOUNTER → 2024-11-22 10:20 | Outpatient (BNVA) | payer OTHER, SELFPAY | PROVIDERS: PCP Internal Medicine; Visit Provider Urology | DX: N32.81 Overactive bladder (principal); R39.15 Urgency of urination; R39.198 Other difficulties with micturition; R32 Unspecified urinary incontinence | CPT/HCPCS: 52000; 81003 ==

== ENCOUNTER 2024-11-22 14:00 | Outpatient (RCR) | payer OTHER, SELFPAY ==
[2024-10-27 08:13] VITALS: BP 133/66; PULSE 70
--- NOTE | 2024-10-27 10:51 | MHC.PT.EP ---
[facility] [place] Office [place] Office [place] Office [address] [phone] F: [phone] F: [phone] F: [phone] F: [phone] Physical Therapy Plan of Care Date of Evaluation: 10/27/24 Date of Surgery: Diagnosis: Aural vertigo, bilateral Vestibular Therapy Assessment: Pt is a pleasant 59yo F who presents to PT with dizziness. Upon assessment, pt tested negative for posterior canal and horizontal canal BPPV bilaterally. She had difficulty and exacerbation of symptoms with oculomotor testing and also had decreased balance upon assessment. Her signs and symptoms may be consistent with vestibular hypofunction. She is a good candidate for skilled PT in order to address current impairments to improve safety, balance, and functional mobility. She is recommended to be seen 2x/week for 4 weeks and will be reassessed at that time. Frequency and Duration: The patient will be seen 2x/week for 4 weeks Short Term Goals: Pt will be I with HEP to promote self management of symptoms Pt will perform supine<>sit without dizziness or instability Fci Goals: Pt will perform sit<>stands from varying surfaces without dizziness or instability Pt will ambulate > 100' without dizziness or instability or lateral deviation independently and safely Treatment Plan: Modalities to reduce pain, spasms and effusion. Manual therapy to restore motion and function. Therapeutic exercise to improve strength and flexibility. Neuromuscular re-education for posture and balance. Therapeutic activities to return to functional activities of daily living. Electronically signed by: Tatyana Davies, PT, DPT Please sign and return to therapist. Thank you for your referral.
--- NOTE | 2024-11-22 15:57 | MHC.PT.DC ---
[facility] [place] Office [place] Office [place] Office [address] Aiden Casas [address] [phone] F: [phone] F: [phone] F: [phone] F: [phone] Physical Therapy Discharge Report Diagnosis: Aural vertigo, bilateral Vestibular Therapy Date of Surgery: Date of Evaluation: 10/27/24 Date of Discharge: 11/22/24 Treatments to Date: 7 Cancellations to Date: 1 No Shows to Date: 1 Discharge Status: Achieved Goals Improved Function Independent with HEP Discharge Summary: Today was pts last scheduled PT appointment. She has made good progress throughout PT and has adequately met her short and intermediate project manager goals. Patient reports less symptoms of dizziness and is able to walk straight when focused on a center object. Patient continues to have LE weakness and reports her LLE falls asleep at times. Patient is independent with HEP at this time and I discussed the importance of continuing to perform HEP consistently. She was provided with printed, updated copy of HEP. She is D/C to HEP Electronically signed by: Tatyana Davies, PT, DPT Please sign and return to therapist. Thank you for your referral.
== END 2024-11-22 15:57 | disposition home or self-care (01) ==
LOC: HO.PT 14:00
PROVIDERS: PCP Internal Medicine; Visit Provider Physician Assistant Medical
DX: H81.313 Aural vertigo, bilateral (principal)
CPT/HCPCS: 97110; 97162; 97530

== ENCOUNTER 2024-12-21 13:48 | Outpatient (AMB) | payer OTHER, SELFPAY ==
[2024-12-21 14:20] VITALS: BP 124/60; PULSE 91; BMI 48.1
--- NOTE | 2024-12-21 14:20 | MHC.OFFVIS ---
Vital Signs 12/21/24 14:20 Height 5 ft 2 in Weight 262 lb 12.656 oz BMI 48.1 BP 124/60 Blood Pressure Location Lt radial Position Sitting Pulse 91 Pulse Source Pulse Oximeter Intake Visit Reasons: 6 mth f/up w/ [place] [facility] Intake Note: 6 mth f/up-device check Edge Polisher Required: No Accompanied by: Self / Same As Patient Allergies adhesive tape Allergy (Intermediate, Verified 11/22/24 10:40) skin breakdown Medication List - Last Reconciled 12/21/24 by Gabriel Salcedo MD cetirizine 10 mg PO DAILY PRN cholecalciferol (vitamin D3) (Vitamin D3) 2,000 units PO DAILY 90 days furosemide 10 mg (1/2 x 20 mg) PO QAM gabapentin 400 mg PO TID 30 days ipratropium bromide 2 sprays intranasal DAILY PRN ketotifen fumarate 0.025%(0.035%) drps ophthalmic (eye) magnesium oxide 400 mg PO DAILY 30 days metoprolol succinate ER 25 mg PO DAILY 90 days croqfaipjiqt-rcn-mdcm-FA-vit K 45 mg iron- 800 mcg-120 mcg (Bariatric Multivitamins) 1 cap PO .QD tramadol 50 mg PO BID PRN 30 days triamcinolone acetonide 2 sprays intranasal DAILY valsartan 80 mg PO DAILY vibegron (Gemtesa) 75 mg PO DAILY vitamin A 2 caps PO DAILY walker As directed zinc 25 mg PO DAILY HPI Comments Details: Urvashi comes for follow-up. Overall she has been doing well. She says she has no new cardiac symptoms. Her last echocardiogram shows improvement in LV ejection fraction to 55-60% normal range. She says a devices larger but otherwise having no complaints. No shortness of breath, orthopnea, PND. She has not been able to lose weight as she said she was dietary in discretion to its can these. She notices some leg swelling. Although denies any orthopnea or abdominal distension. Takes all her medications. [facility] Medical History Pain at surgical incision Urinary incontinence in female Stress incontinence Lumbar back pain with radiculopathy affecting left lower extremity GERD (gastroesophageal reflux disease) HTN (hypertension) Complex regional pain syndrome i of left lower limb Chronic pain syndrome Cardiac pacemaker in situ Cardiomyopathy Second degree AV block Allergies Osteoarthritis of left knee Spondylosis of lumbosacral spine with radiculopathy Back pain Surgical History History of hernia repair (~11/12/23) H/O gastric bypass Gastric bypass status for obesity Hx of cholecystectomy Hx of breast reduction, elective Hx of colonoscopy History of esophagogastroduodenoscopy (EGD) History of permanent cardiac pacemaker placement Family History Father Asthma Mother HTN (hypertension) Alzheimer disease Brother Cardiac pacemaker Sister Colon cancer Metastatic cancer Social History Household Members: None Housing: Apartment Do you presently have visiting nurse or 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 home services: 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 (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 SPECIALIST) Alcohol intake: former Comment: counts correct Patient Tobacco Use Status: Former Tobacco user Cigarette Packs Per Day: 0.5 e-Cigarette/Vaping Use: Never Used Advance Directives Date on File: 11/12/23 service: No 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al status: unemployed and disabled 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 Cognitive needs: No Hearing needs: No Vision needs: Yes Review of Systems Const Denies chills, Denies fatigue, Denies fever(s), Denies frequent falls, Denies weakness, Denies weight gain and Denies weight loss ENT Denies dizziness Card Denies chest pain, Denies leg edema, Denies lightheadedness, Denies palpitations, Denies dyspnea and Denies dyspnea on exertion Resp Denies cough, Denies dyspnea and Denies dyspnea on exertion GI Denies hematochezia Musc Denies abnormal gait, Denies muscle weakness, Denies numbness, Denies radiating pain into limb and Denies tingling Neuro Denies abnormal gait, Denies dizziness, Denies frequent falls, Denies numbness, Denies tingling and Denies weakness Endo Denies fatigue and Denies palpitations Physical Exam Vital Signs: Last Vital Signs Pulse 91 12/21/24 14:20 BP 124/60 12/21/24 14:20 BMI result Body Mass Index 48.1 Const General: cooperative, healthy appearing, comfortable and no acute distress Orientation/consciousness: patient oriented x3 Neck Neck: Yes normal visual inspection Chest Other: pacer site left upper chest, dressing removed, incision very well appromiated, no signs of redness, draininge, there is soft swelling noted, mild sensitivity to touch. Resp Effort & Inspection: normal respiratory effort Auscultation: clear to auscultation bilaterally, no rales and no rhonchi Cardio Jugular venous distension: no JVD Rate: regular rate Rhythm: regular rhythm Heart sounds: S1 normal heart sound present, S2 normal heart sound present, no gallops, no murmurs and no rubs Neuro General: patient oriented x3 Extrem General: Yes normal to inspection, No no pedal edema and No calf tenderness Psych Appearance: grossly normal Mental Status: mental status grossly normal Speech and movement: Normal speech and movement present Office Procedures Cardiac Device Check Cardiac Device Check Details: [employer] biventricular pacemaker in place. Programmed in DDD at 60 beats per minute. Biventricular pacing seems to be 90% and suboptimal home question unclear reason question related to PVCs. Atrial and biventricular pacing thresholds adequate and in auto capture mode. No arrhythmias noted. Battery life is at 9 and half years 20709-DM Cardiac Device Check, multi lead pacemaker Procedure code (CPT) selection complete Assessment & Plan Assessment & Plan (1) Cardiomyopathy: Code(s): I42.9 - Cardiomyopathy, unspecified Category: Medical Qualifiers: Cardiomyopathy type: unspecified Qualified Code(s): I42.9 - Cardiomyopathy, unspecified Plan: Nonischemic cardiomyopathy with normalized LV ejection fraction since cardiac resynchronization therapy suggestive of pacemaker mediated cardiomyopathy. Clinically doing very well with no signs or symptoms of heart failure. Continue to monitor for signs and symptoms of heart failure. There were discussed with her. Leg edema appear to be related to peripheral venous hypertension related to obesity. Continue neurohormonal modulation with metoprolol as well as valsartan. Importance of aggressive weight loss program was discussed with her. (2) Biventricular cardiac pacemaker in situ: Code(s): Z95.0 - Presence of cardiac pacemaker Category: Medical Plan: Biventricular cardiac pacemaker in-situ with improved LV ejection fraction. Will continue monitor remotely by pacer telemetry. Follow up in the clinic in 6 months time. Follow up in the clinic in 6 months time, sooner p.r.n.. Thank you for allowing me to partake in his care Coding Level of Care Code Est Pt Level 4 (07767) Complex EM visit Add On G2211 Diagnoses Cardiomyopathy, unspecified type I42.9 Cardiomyopathy type: unspecified Biventricular cardiac pacemaker in situ Z95.0 CPT Codes Cardiac Device Check - Cardiac Device 3: [id number] Cardiac Device Check, multi lead pacemaker ([id number])
--- OUTSIDE RECORDS SUMMARY | 2024-12-21 16:26 | XMS_ITS | Clinical Summary ---
Author Organization [employer] Address [address] [place] [address] Care Team Providers Care Hotel Night Auditor Name Role Phone Unavailable Primary Care Provider [...] Active beta carotene (vitamin A) 3 MG (08710 UT) capsule TOME 2 C PSULAS POR [...] Care Team (Late st Contact Info) Description 06/21/2025 3:00 PM EDT Office Visit [facility] [address] [place] [address] Akilah Shaikh Health Maintenance Due Date Last [...] Most Recently Relevant to Health Maintenance Insurance [facility] MEDICAID STAND ADULT
== END 2024-12-21 14:50 | disposition home or self-care (01) ==
LOC: HO.HCS 13:48
PROVIDERS: PCP Internal Medicine; Visit Provider Internal Medicine Cardiovascular Disease
DX: I42.9 Cardiomyopathy, unspecified (principal); Z95.0 Presence of cardiac pacemaker
CPT/HCPCS: 93281; 99214; G2211

== ENCOUNTER → 2024-12-21 13:48 | Outpatient (BNVA) | payer OTHER, SELFPAY | PROVIDERS: PCP Internal Medicine; Visit Provider Internal Medicine Cardiovascular Disease | DX: I42.9 Cardiomyopathy, unspecified (principal); Z95.0 Presence of cardiac pacemaker | CPT/HCPCS: 99212 ==

== ENCOUNTER 2024-12-27 10:13 | Outpatient (AMB) | payer OTHER, SELFPAY ==
--- NOTE | 2024-12-27 10:21 | MHC.OFFVIS ---
Intake Visit Reasons: Inj-B/L knee inj last injection 09/27/24 Intake Note: Urvashi is a 59 year old female who presents today for bilateral knee injections, last injection 09/27/24 She reports mild relief with injections and would like to repeat bilaterally today Allergies adhesive tape Allergy (Intermediate, Verified 11/22/24 10:40) skin breakdown HPI HPI Inj-B/L knee inj last injection 09/27/24: Details: Hui is here for bilateral knee pain. She has received injections in the past which have been helpful for a few weeks but she continues to have difficulty ambulating and difficulty with pain throughout the day. Both knees hurt. [facility] Medical History Pain at surgical incision Urinary incontinence in female Stress incontinence Lumbar back pain with radiculopathy affecting left lower extremity GERD (gastroesophageal reflux disease) HTN (hypertension) Complex regional pain syndrome i of left lower limb Chronic pain syndrome Cardiac pacemaker in situ Cardiomyopathy Second degree AV block Allergies Osteoarthritis of left knee Spondylosis of lumbosacral spine with radiculopathy Back pain Surgical History History of hernia repair (~11/12/23) H/O gastric bypass Gastric bypass status for obesity Hx of cholecystectomy Hx of breast reduction, elective Hx of colonoscopy History of esophagogastroduodenoscopy (EGD) History of permanent cardiac pacemaker placement Family History Father Asthma Mother HTN (hypertension) Alzheimer disease Brother Cardiac pacemaker Sister Colon cancer Metastatic cancer Social History Household Members: None Housing: Apartment Do you presently have visiting nurse or other home services: 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 Site was prepped using aseptic technique. Patient tolerated the procedure well. Shoulders, Hips, Knees, Knee Large Joint Injection : Bilateral Knee Coding Procedure code (CPT) selection complete Assessment & Plan Assessment & Plan (1) Localized osteoarthritis of knees, bilateral: Comment: Injected bilateral knees. Code(s): M17.0 - Bilateral primary osteoarthritis of knee Category: Medical Plan: This is a 59-year-old woman with bilateral knee osteoarthritis. She is working on weight loss and activity tolerance. I injected bilateral knees. She may follow up for repeat injections in 3-4 months. Coding Level of Care Code Est Pt Level 3 (37321) Diagnoses Localized osteoarthritis of knees, bilateral M17.0 CPT Codes Shoulders, Hips, Knees, - Knee Large Joint Injection : Bilateral Knee ([id number])
--- OUTSIDE RECORDS SUMMARY | 2024-12-27 11:53 | XMS_ITS | Continuity of Care Document ---
Author Organization [employer] Address [facility] [address] [place] [address] Phone Care Team Providers Care Sole Blacker Name Role Phone Jonna Garcia OD Unavailable [...] MASS INDEX DOCD MED LIST DOCD IN [facility] OFFICE/OUTPATIENT VISIT, EST TOBACCO NON-USER SYST BP LT 130 MM HG Sys bp less 140 DIAST BP < 80 MM HG Vela bp less 90 DSCHRG MED/CURRENT MED MERGE WEIGHT RECORDED BODY MASS INDEX DOCD MED LIST DOCD IN [facility] OFFICE/OUTPATIENT VISIT, NEW OFFICE/OUTPATIENT VISIT, EST [...] Diagnoses Date Provider Providers Copied on Encounter [facility], [address] [place] [address] [address], [place], [place], [id number], [place] tel:[phone] [facility] No Information Jose Coyle. [address] [facility], [facility] [address], [place], [place], [id number], [place]. tel:[phone] OFFICE/OUTPA TIENT VISIT, EST [facility], [address] [place] [address], [id number], [place] tel:[phone] [facility] Medication Review/Polyph armacy (chief complaint)hyp ertension (chief complaint) Body mass index (BMI) 37.0-37.9, adultDietary counseling and surveillanceE ssential (primary) hypertensionP rediabetesHyp erlipidemia, unspecified hyperlipidemi a type 5 Gamboa Elyse. [address], [address], [place], [place], [id number], [place]. tel:[phone] [facility], [address] [place] [address], [id number], [place] tel:[phone] [facility] x blurry va (chief complaint) Combined forms of age-related cataract, bilateral 5 Jose Coyle. [address], [place] [address], [place], [id number], [place]. tel:[phone] [facility], [address] [place] [address], [id number], [place] tel:[phone] [facility] No Information 3 Lucas Delgadillo Katia. [address], [place], [place], [id number], [place]. tel:[phone] OFFICE/OUTPA TIENT VISIT, [facility], [address] [place] [address], [id number], [place] tel:[phone] [facility] Growth (chief complaint)Whit wth (chief complaint) Peroneal ganglion cystChronic pain of right ankle 3 Mihcael Frankel. [address], [place], [place], [id number], [place]. tel:[phone] OFFICE/OUTPA TIENT VISIT, [facility], [address] [place] [address], [id number], [place] tel:[phone] [facility] Follow Up of Depression (chief complaint)Fol low Up of hypertension (chief complaint) Body mass index (BMI) 35.0-35.9, adultDietary counseling and surveillanceE ssential hypertensionM oderate major depression 3 Lucas Montalvo. [address] [facility] [address], [id number], [place]. tel:[phone] [facility], [address] [place] [address], [id number], [place] tel:[phone] [facility] Vitamin D insufficiency 3 Lucas Montalvo. [address] [facility] [address], [place], [id number], [place]. tel:[phone] OFFICE/OUTPA TIENT VISIT, [facility], [address] [place] [address], [id number], [place] tel:[phone] [facility] hypertension (chief complaint)dep ression (chief complaint) Body mass index (BMI) 34.0-34.9, adultDietary counseling and surveillanceM oderate major depressionEss ential hypertensionB reast cancer screening 3 Lucas Montalvo. [address] [facility] [address], [place], [id number], [place]. tel:[phone] [facility], [address] [place] [address], [id number], [place] tel:[phone] [facility] Degenerative lumbar discRetrolist hesis of vertebrae 2 No Information OFFICE/OUTPA TIENT VISIT, [facility], [address] [place] [address], [id number], [place] tel:[phone] [facility] back pain (chief complaint) Body mass index (BMI) 35.0-35.9, adultChronic left-sided low back pain with left-sided sciatica 2 Eliza Fu. [address], [place] [address], [id number], [place]. tel:[phone] OFFICE/OUTPA TIENT VISIT, [facility], [address] [place] [address], [id number], [place] tel:[phone] [facility] UTI (chief complaint) Body mass index (BMI) 35.0-35.9, adultCystitis Essential (primary) hypertension Nov-2 2 [facility]. [address], [address], [place], [place], [id number], [place]. tel:[phone] OFFICE/OUTPA TIENT VISIT, [facility], [address] [place] [address], [id number], [place] tel:[phone] [facility] hypertension (chief complaint) Body mass index (BMI) 35.0-35.9, adultEssentia l (primary) hypertension 0 No Information OFFICE/OUTPA TIENT VISIT, [facility], [address] [place] [address], [id number], [place] tel:[phone] [facility] hypertension (chief complaint) Body mass index (BMI) 35.0-35.9, adultHyperlip idemia, unspecified hyperlipidemi a typeEssential (primary) hypertension 9 No Information OFFICE/OUTPA TIENT VISIT, [facility], [address] [place] [address], [id number], [place] tel:[phone] [facility] hypertension (chief complaint)ER Follow Up (chief complaint)Add itional Information (chief complaint) Body mass index (BMI) 35.0-35.9, adultEssentia l (primary) hypertensionI ntermittent palpitations Nov-0 9 No Information [facility], [address] [place] [address], [id number], [place] tel:[phone] [facility] Abnormal mammogram of right breast Nov- 9 No Information OFFICE/OUTPA TIENT VISIT, [facility], [address] [place] [address], [id number], [place] tel:[phone] [facility] Follow Up of Weight management (chief complaint)Add itional info (chief complaint) Body mass index (BMI) 35.0-35.9, adultHyperlip idemia, unspecified hyperlipidemi a typeObesity (BMI 30-39.9) 9 No Information OFFICE/OUTPA TIENT VISIT, [facility], [address] [place] [address], [id number], [place] tel:[phone] [facility] annual exam (chief complaint) Body mass index (BMI) 35.0-35.9, adultEncntr for vasc tech exam (general) (routine) w/o abn findingsCervi hannah cancer screeningBrea st cancer screeningVagi nal discharge 9 No Information OFFICE/OUTPA TIENT VISIT, [facility], [address] [place] [address], [id number], [place] tel:[phone] [facility] Ocular Discomfort (chief complaint) Peripheral pterygium, progressive, bilateral 9 [facility] Davian. [address] [place], [place], [id number], [place]. tel:[phone] OFFICE/OUTPA TIENT VISIT, [facility], [address] [place] [address], [id number], [place] tel:[phone] [facility] Obesity (chief complaint)Ski n lesion (chief complaint) Body mass index (BMI) 36.0-36.9, adultColon cancer screeningObes ity (BMI 30-39.9)Vener eal disease screeningNume zelalem skin molesConstipa tion, unspecified constipation typeEssential (primary) hypertension 9 No Information OFFICE/OUTPA TIENT VISIT, [facility], [address] [place] [address], [id number], [place] tel:[phone] [facility] Weight Management (chief complaint)Obe sity (chief complaint) PrediabetesBo dy mass index (BMI) 36.0-36.9, adultPterygiu m of both eyesObesity (BMI 30-39.9) 9 No Information OFFICE/OUTPA TIENT VISIT, [facility], [address] [place] [address], [id number], tel:[phone] [facility] hypertension (chief complaint) Body mass index (BMI) 29.0-29.9, adultGERD with esophagitisEn counter for screening for nutritional disorderEssen tial (primary) hypertensionL eft anterior knee pain 8 No Information OFFICE/OUTPA TIENT VISIT, [facility], [address] [place] [address], [id number], tel:[phone] [facility] Follow up on lab test(s) (chief complaint) Body mass index (BMI) 29.0-29.9, adultEssentia l (primary) hypertensionP rediabetesEle vated LDL cholesterol levelVitamin D deficiency 8 No Information OFFICE/OUTPA TIENT VISIT, [facility], [address] [place] [address], [id number], tel:[phone] [facility] est care (chief complaint)hyp ertension (chief complaint)hyp [...] hypertension Payers Payer name Insurance type Covered democrat ID Authoriza tion(s) No Information Social History [...] Of Treatment Date Type Action Status Goal Tobacco Use Scre ening. Due on due Goal Unhealthy drug u se screening. Due on due Goal FOBT. Due on [...] Goal Colonoscopy. Due on 022 due Goal Hepatitis Panel (incl Hep A Tot, Hep B Tot) w/Rflx. Due on due Goal Sigmoidoscopy. Due on [...] Goal Td vaccine. Due on due Goal FIT-DNA. Due on due Goal Tobacco Use Scre ening. Due on due Goal Hep C [...] Goal Colonoscopy. Due on 020 due Goal Tdap. Due on due Goal Td vaccine. Due [...] Lifestyle education regardin g diet completed Goal Hepatitis Panel (incl Hep A Tot, [...] Goal Zoster vaccine. Due on due Goal Td vaccine. Due on due Goal Lipid panel. [...] due Goal CT-Colonography. Due on due Goal Depression scree kathleen. Due on due Goal Sigmoidoscopy. Due on due Goal Hep C Ab. Due on due Goal Td vaccine. Due on due Goal FOBT. Due on due Goal Lifestyle education regardin g diet completed Goal Lifestyle education regardin g diet completed Goal FIT. Due on due Goal Unhealthy [...] due Goal FIT. Due on due Goal Depression scree kathleen. Due on due Goal Hepatitis C scre ening. Due on due Goal Vision Screen. Due on due Goal Td vaccine. Due on due Goal HPV. Due on due Goal Unhealthy drug u se screening. Due on due Goal CT-Colonography. Due on due Goal Hep C Ab. Due on due Goal Colonoscopy. Due on 022 due Goal Tdap. Due on due Goal Substance Abuse Screen. Due on due Goal Sigmoidoscopy. Due on due Goal Influenza vaccin e. Due on due Goal FOBT. Due on due Goal Hep C Ab w/Rflx to Hep C RNA, Quant, RT-PCR. Due on due Goal FIT-DNA. Due on due Goal Hep C Ab w/Rflx PCR Genotype,LIPA. Due on due Goal Lifestyle education regardin g diet completed Goal Lifestyle education regardin g diet completed Goal Hepatitis Panel (incl Hep A Tot, [...] due Goal CT-Colonography. Due on due Goal Mammogram. Due on due Goal Substance Abuse Screen. Due on due Goal FOBT. Due on due Goal Hepatitis Panel (incl Hep A Tot, Hep B Tot) w/Rflx. Due on due Goal FIT-DNA. Due on due Goal Sigmoidoscopy. Due on due Goal Zoster vaccine ( 1st). Due on due Goal Td vaccine. Due on due Goal Depression scree kathleen. [...] due Goal Colonoscopy. Due on due Goal Lifestyle education regardin g diet completed Goal CT-Colonography. Due on due Goal Substance Abuse Screen. Due on due Goal Colonoscopy. Due on due Goal Td vaccine. Due on due Goal Vision Screen. Due [...] nt education, guidance, and counseling completed Goal Mammogram. Due on 1 due Goal Hep C Ab. Due on due Goal Pap/HPV testing. Due [...] Goal Td vaccine. Due on due Goal Lifestyle education regardin g diet completed Goal Tdap. Due on due Goal Hepatitis Panel (incl Hep A Tot, Hep B Tot) w/Rflx. Due on due Goal Pap/HPV testing. Due on due Goal Colonoscopy. Due on due Goal Sigmoidoscopy. Due on due Goal FOBT. Due on due Goal Influenza vaccin e. Due on due Goal Mammogram. Due on 1 due Goal Substance Abuse Screen. Due on due Goal Td vaccine. Due on due Goal Depression scree kathleen. Due on due Goal Hep C Ab. Due on due Goal Vision Screen. Due on due Goal Lifestyle education regardin g diet completed Goal Depression scree kathleen. Due on due Goal Colonoscopy. Due on due Goal Mammogram. Due on 1 due Goal FOBT. Due on due Goal Hep C Ab. Due on due Goal Tdap. Due on due Goal Hepatitis Panel (incl Hep A Tot, Hep B Tot) w/Rflx. Due on due Goal Td vaccine. Due on 19 due Goal Substance Abuse Screen. Due on due Goal Vision Screen. Due on due Goal Influenza vaccin e. Due on due Goal Sigmoidoscopy. Due on due Goal Pap/HPV testing. Due [...] completed Goal FOBT. Due on due Goal Hep [...] Lifestyle education regardin g diet completed Goal Hepatitis Panel (incl Hep A Tot, Hep B Tot) w/Rflx. Due on due Goal Tdap. Due on due Goal Influenza vaccin e. Due on due Goal Pap/HPV testing. Due on due Goal Hep C Ab. Due on due Goal Mammogram. Due on 9 due Goal Td vaccine. Due on 19 due Goal FOBT. Due on due Goal [...] due Goal Sigmoidoscopy. Due on due Goal Colonoscopy. Due on 019 due Goal Mammogram. Due on 9 due Goal Hep C Ab. Due on due Goal Influenza vaccin e. Due on due Goal Tdap. Due on due Goal Pap/HPV testing. Due on due Goal Lifestyle education regardin g diet completed Goal HIV 1/0/2 Ag/Ab with Reflex. Due on due Goal Colonoscopy. Due on 019 due Goal Mammogram. Due on 9 due Goal Pap/HPV testing. Due on due Goal Tdap. Due on due Goal Substance Abuse Screen. Due on due Goal FOBT. Due on due Goal Sigmoidoscopy. Due on due Goal Influenza vaccin e. Due on due Goal Depression scree kathleen. Due on due Goal Hep C Ab. Due on due Goal Td vaccine. Due on 19 due Goal Dietary manageme nt education, guidance, [...] Cardiology. Evaluate and treat ordered Referral Ordered: Digital Diagnostic Mammogram, Unilateral R Appointment date/timeframe: 12/22/2018 ordered Referral Ordered: Ultrasound, Breast, Complete Appointment date/timeframe: 12/22/2018 ordered Referral Ordered: Digital Screening Mammogram, Bilateral Appointment date/timeframe: 11/17/2018 ordered Referral Ordered: Referrals: Dermatology. Evaluate and treat ordered Appointment Urvashi Lewis Patient Education Gastroesophage al Reflux Disease (GERD~ completed Patient Education Knee Pain: Care Instruc tions completed Future Order: Lab Order CBC (INC LUDES DIFF/PLT) ([id number]), Sent on: Sent Future Order: Lab Order COMPREHE NSIVE METABOLIC PANEL ([id number]), Sent on: Sent Future Order: Lab Order HEMOGLOB IN A1C (496), Sent on: Sent Future Order: Lab Order LIPID [place] OFILE ([id number]), Sent on: Sent Future Order: Lab Order TSH AND FREE T4 ([id number]), Sent on: Sent Future Order: Radiology Order Ma mmogram: Screening - Bilateral ([id number]), Ordered on: Ordered Future Order: Radiology Order X- ray L-Spine: 4-5 Views ([id number]), Added on: New Future Order: Lab Order CBC (INC LUDES DIFF/PLT) ([id number]), Sent on: Sent Future Order: Lab Order COMPREHE NSIVE METABOLIC PANEL ([id number]), Sent on: Sent Future Order: Lab Order LIPID PA SETH ([id number]), Sent on: Sent Future Order: Lab Order TSH W/RE FLEX TO FREE T4 ([id number]), Sent on: Sent Future Order: Lab Order VITAMIN D,25-OH,TOTAL,IA ([id number]), Sent on: Sent Future Order: Lab Order HEMOGLOB IN A1C (496), Sent on: Sent Future Order: Lab Order MICROALB UMIN, RANDOM URINE (W/CREATININE) ([id number]), Sent on: Sent Future Order: Radiology Order Ul trasound, Breast, Complete ([id number]), Added on: New Future Order: Radiology Order Di gital Diagnostic Mammogram, Unilateral R ([id number]), Added on: New Future Order: Radiology Order Di gital Screening Mammogram, Bilateral ([id number]), Added on: New Future Order: Lab Order FECAL GL OBIN BY IMMUNOCHEMISTRY ([id number]), Ordered on: Ordered History Of Present Illness [...] years ago. She was being seen in [place] for HTN and getting her medication there. [...] some weight recently. No family Hx of WA's or strokes, no heart problems. No family [...] ankle.Patient brought an Ultrasound report done in [place] on 2021.Patient complains the growth on her [...] due to not having insurance.Patient going to [place] for two months. hypertension Risk factors inc [...] disturbances and vomiting. Additional Information Seen at [facility] on 12/02/18 for near syncope episode [...] on 10/05/18. Follow Up of Weight management P obdulia is present today to follow up her [...] lab test(s) General labs hypertension Additional infor emmarosio: patient states that she needs a refill [...] as a psychiatrist, psychologist, nurse, or social work instructor)--DeclinedSee someone right away if you want to [...] as a psychiatrist, psychologist, nurse, or social work instructor)--Referred.See someone right away if you want to [...] or as needed. Related to Encntr for vasc tech exam (general) (routine) w/o abn findings Giving [...] hepatotoxicity. Instructed NSAIDs are not indicated for intermission coordinator use. Instructed that this medication should not [...]
--- OUTSIDE RECORDS SUMMARY | 2024-12-27 11:53 | XMS_ITS | Clinical Summary ---
Author Organization [employer] Address [address] [facility] [address] [place] [address] Care Team Providers Care Mine Boss Name Role Phone Unavailable Primary Care Provider [...] Active beta carotene (vitamin A) 3 MG (24741 UT) capsule TOME 2 C PSULAS POR [...] Description 06/21/2025 3:00 PM EDT Office Visit [facility] [address] [place] [address] Akilah Shaikh Health Maintenance Due Date Last [...] Most Recently Relevant to Health Maintenance Insurance [facility] MEDICAID STAND ADULT
== END 2024-12-27 10:39 | disposition home or self-care (01) ==
LOC: HO.HOS 10:14
PROVIDERS: PCP Internal Medicine; Visit Provider Orthopaedic Surgery
DX: M17.0 Bilateral primary osteoarthritis of knee (principal)
CPT/HCPCS: 20610; 99213

== ENCOUNTER → 2024-12-27 10:13 | Outpatient (BNVA) | payer OTHER, SELFPAY | PROVIDERS: PCP Internal Medicine; Visit Provider Orthopaedic Surgery | DX: M17.0 Bilateral primary osteoarthritis of knee (principal) | CPT/HCPCS: 20610; 99212; J0665; J1100; J2003 ==

== ENCOUNTER → 2024-12-27 23:59 | Outpatient (BNV) | payer OTHER, SELFPAY ==
--- NOTE | 2024-12-28 14:45 | MHC.OFFVIS ---
Intake Visit Reasons: Remote ICD ck-[place] [facility] Allergies adhesive tape Allergy (Intermediate, Verified 11/22/24 10:40) skin breakdown PFSH Medical History Pain at surgical incision Urinary incontinence in female Stress incontinence Lumbar back pain with radiculopathy affecting left lower extremity GERD (gastroesophageal reflux disease) HTN (hypertension) Complex regional pain syndrome i of left lower limb Chronic pain syndrome Cardiac pacemaker in situ Cardiomyopathy Second degree AV block Allergies Osteoarthritis of left knee Spondylosis of lumbosacral spine with radiculopathy Back pain Surgical History History of hernia repair (~11/12/23) H/O gastric bypass Gastric bypass status for obesity Hx of cholecystectomy Hx of breast reduction, elective Hx of colonoscopy History of esophagogastroduodenoscopy (EGD) History of permanent cardiac pacemaker placement Family History Father Asthma Mother HTN (hypertension) Alzheimer disease Brother Cardiac pacemaker Sister Colon cancer Metastatic cancer Social History Household Members: None Housing: Apartment Do you presently have visiting nurse or other home services: Yes ([employer]CR[employer]) Alcohol intake: former Comment: counts correct Patient Tobacco Use Status: Former Tobacco user Cigarette Packs Per Day: 0.5 e-Cigarette/Vaping Use: Never Used Advance Directives Date on File: 11/12/23 service: No 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al status: unemployed and disabled 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 Cognitive needs: No Hearing needs: No Vision needs: Yes Office Procedures Cardiac Device Check Cardiac Device Check Details: Remote pacemaker report generated 12/27/2024. Pacemaker function is adequate. Bi V pacing 91% of the time [id number] Cardiac Device Interrogation, pacemaker Procedure code (CPT) selection complete Assessment & Plan Assessment & Plan (1) Biventricular cardiac pacemaker in situ: Code(s): Z95.0 - Presence of cardiac pacemaker Category: Medical Plan: See above Coding Level of Care Code Procedure Only Diagnoses Biventricular cardiac pacemaker in situ Z95.0 CPT Codes Cardiac Device Check - Cardiac Device 12: [id number] Cardiac Device Interrogation, pacemaker ([id number])
== END ==
PROVIDERS: PCP Internal Medicine; Visit Provider Internal Medicine Cardiovascular Disease
DX: Z45.018 Encounter for adjustment and management of other part of cardiac pacemaker (principal)
CPT/HCPCS: 93294

== ENCOUNTER 2025-01-12 11:26 | Outpatient (AMB) | payer OTHER, SELFPAY ==
--- NOTE | 2025-01-12 11:29 | MHC.OFFVIS ---
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 Required: No Allergies adhesive tape Allergy (Intermediate, Verified 01/12/25 11:35) skin breakdown Medication List - Last Reconciled 01/12/25 by Chelsy Graff LPN cetirizine 10 mg PO DAILY PRN cholecalciferol (vitamin D3) (Vitamin D3) 2,000 units PO DAILY 90 days furosemide 10 mg (1/2 x 20 mg) PO QAM gabapentin 400 mg PO TID 30 days ipratropium bromide 2 sprays intranasal DAILY PRN ketotifen fumarate 0.025%(0.035%) drps ophthalmic (eye) magnesium oxide 400 mg PO DAILY 30 days metoprolol succinate ER 25 mg PO DAILY 90 days cundljlnrkkm-dsq-jmbk-FA-vit K 45 mg iron- 800 mcg-120 mcg (Bariatric Multivitamins) 1 cap PO .QD tramadol 50 mg PO BID PRN 30 days triamcinolone acetonide 2 sprays intranasal DAILY valsartan 80 mg PO DAILY vibegron (Gemtesa) 75 mg PO DAILY vitamin A 2 caps PO DAILY walker As directed zinc 25 mg PO DAILY HPI Comments Details: Urvashi presents to the office today for follow up chronic pain and chronic opioid therapy management. Random UDS from last visit reviewed, no concerns. Patient is prescribed Tramadol 50mg po BID as needed. Patient arrived today with the expectation of having 34 pills, she presented 36 pills which were counted in the presence of two staff members and returned to the patient in the original prescription bottle. This demonstrates responsible attitude toward patient's opioid medications. Pain is reported today as 3/10 and last dose of pain medication was taken at 08:30 this morning. Patient denies side effects including somnolence, constipation, itching, dyspnea, rash, dizziness or weakness. She recently received bilateral knee injections at orthopedics, reports her pain is much improved since the injections. Has been suffering with BLE edema, spoke with cell tuber machine about this but he is hesitant to introduce diuretics d/t patients heart condition. She has seen vascular in the past but not recently. Awaiting appt with pcp to further discuss. Past visit with Dr Ratliff: Urvashi is a very pleasant 57 year old female who presents to the office for follow up chronic pain and chronic opioid therapy management. Last time she was in this office and she was prescribed tramadol 50 mg t.i.d.. She came today with excess of her pills. She brought to us 30 pills from November a and 20 pills from last month. She supposed to have no pills today in her possession. [facility] prescribed to much of the pills for her. We agreed that from now on I will be prescribing her to pills a day. We destroyed pills from November. That left her with 21 pills for this month and. I will restart her medication in 10 days from now which will be 05/09/2023. After we will establish that she is okay with his her medication prescriptions I will continue to see her once in 2 months for the appointments and pill counts. Patient denies any side effects including constipation, abdominal pain, somnolence, nausea, dizziness or falls. She previously had SCS trial with stimZeusve but did not tolerate, does not want to proceed with SCS at this time. Previously: She? went with me on transforaminal epidural spinal cord stimulator with stim wave technology.? After the procedure? she reported pain exacerbation in radicular distribution she reported numbness in left lower extremity.? During the procedure the insertion of the stimulating wires was quite difficult probably due to foraminal stenosis on those sites.? Her physical exam did not demonstrate any significant roots see below.? The CT scan which was performed to her in the emergency room did not demonstrate any hematoma or any peripheral nerve damage.? She went for EMG done by Dr. Whitfield.? Only peripheral neuropathy was found on EMG.? There were no acute radiculopathy secondary to needle penetration to the nerve roots.? The patient was treated with gabapentin and short course steroid therapy.? She reports that numbness is improving now.? She supposed to go for [facility] trial of spinal cord stimulator as we planned before...,.? ON LICENSE OF [facility] Medical History Pain at surgical incision Urinary incontinence in female Stress incontinence Lumbar back pain with radiculopathy affecting left lower extremity GERD (gastroesophageal reflux disease) HTN (hypertension) Complex regional pain syndrome i of left lower limb Chronic pain syndrome Cardiac pacemaker in situ Cardiomyopathy Second degree AV block Allergies Osteoarthritis of left knee Spondylosis of lumbosacral spine with radiculopathy Back pain Surgical History History of hernia repair (~11/12/23) H/O gastric bypass Gastric bypass status for obesity Hx of cholecystectomy Hx of breast reduction, elective Hx of colonoscopy History of esophagogastroduodenoscopy (EGD) History of permanent cardiac pacemaker placement Family History Father Asthma Mother HTN (hypertension) Alzheimer disease Brother Cardiac pacemaker Sister Colon cancer Metastatic cancer Social History Household Members: None Housing: Apartment Do you presently have visiting nurse or other home services: Yes ([employer]) Alcohol intake: former Comment: counts correct Patient Tobacco Use Status: Former Tobacco user Cigarette Packs Per Day: 0.5 e-Cigarette/Vaping Use: Never Used Advance Directives Date on File: 11/12/23 service: No 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al status: unemployed and disabled 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 Cognitive needs: No Hearing needs: No Vision needs: Yes Review of Systems Const All systems reviewed & are unremarkable except as noted in HPI and below Physical Exam Vital Signs: Last Vital Signs Pulse 94 01/12/25 11:31 Resp 17 01/12/25 11:31 BP 131/59 L 01/12/25 11:31 Pulse Ox 95 01/12/25 11:31 Oxygen Delivery Method Room Air 01/12/25 11:31 BMI result Body Mass Index 48.3 General: awake, alert, oriented. Answers questions appropriately. Fully engaged in examination. Skin: warm, dry, intact without visible rashes or lesions. HEENT: Normocephalic. Hearing intact. Cardiac: External chest normal in appearance. BLE pitting edema. Respiratory: No cough, audible wheezing or stridor. Abdomen: without gross distension. MS: No obvious swelling or deformities. Able to transition from sit to stand unassisted. Neurological: Oriented to person, place, time and situation. Thought process intact. Ambulates with cane for assistance. Psychiatric: Appropriate mood and affect. Good judgment and insight. Const Other: Results Reviewed Results Reviewed: 11/05/2021 EXAMINATION: CT LUMBAR SPINE WITHOUT CONTRAST FINDINGS: The heights of the lumbar vertebrae are well-maintained. Subtle grade 1 anterolisthesis of L4 over L5. Mild facet joint arthritic changes are noted at the lower lumbar spine. Posterior appendages are intact.? No evidence of any fracture present. No evidence of any paraspinal, soft tissue hematoma present. The visualized retroperitoneum grossly appears unremarkable. Significant motion artifacts are present. IMPRESSION: No CT evidence of any compression fracture or paraspinal hematoma. Mild grade 1 anterolisthesis of L4 over L5 and facet joint arthritic changes at lower lumbar spine. Assessment & Plan Assessment & Plan (1) Hip pain, left: Code(s): M25.552 - Pain in left hip Category: Medical (2) Lumbar pain: Code(s): M54.5 - Low back pain Category: Medical (3) Osteoarthritis of left hip: Code(s): M16.12 - Unilateral primary osteoarthritis, left hip Category: Medical Qualifiers: Osteoarthritis type: primary Qualified Code(s): M16.12 - Unilateral primary osteoarthritis, left hip (4) Spondylosis of lumbosacral spine with radiculopathy: Code(s): M47.27 - Other spondylosis with radiculopathy, lumbosacral region Category: Medical (5) Chronic pain syndrome: Code(s): G89.4 - Chronic pain syndrome Category: Medical (6) Complex regional pain syndrome i of left lower limb: Code(s): G90.522 - Complex regional pain syndrome I of left lower limb Category: Medical Plan Masspat was reviewed and without concerns. No obvious signs of diversion, abuse or misuse of the opioid medications. Refill sent for Tramadol 50mg po BID prn with 1 refill. Referral placed to vascular for bilateral peripheral edema. Patient also advised to follow up as planned with her pcp for this. Patient to follow-up in the office in 2 months, sooner if needed. All questions and concerns have been answered and patient agrees with the plan. Stimwave trial L2-L3 L3-L4 done previously but patient reported increased numbness to lateral left thigh. Post procedure CT and EMG were completed which did not demonstrate evidence of acute pathology or radiculopathy. EMG did show evidence of peripheral neuropathy. Due to the side effects, neuropathy and interaction with her pacemaker she does not want to proceed with SCS at this time. Orders: Referrals Vascular Surgery Referral R60.0 - Localized edema Medications: Refilled tramadol 50 mg PO BID 30 days PRN 60 tabs 1RF pain Coding Level of Care Code Est Pt Level 3 (48038) Complex EM visit Add On G2211 Diagnoses Hip pain, left M25.552 Lumbar pain M54.5 Primary osteoarthritis of left hip M16.12 Osteoarthritis type: primary Spondylosis of lumbosacral spine with radiculopathy M47.27 Chronic pain syndrome G89.4 Complex regional pain syndrome i of left lower limb G90.522
[2025-01-12 11:31] VITALS: BP 131/59; PULSE 94; RESP 17; O2SAT 95; BMI 48.3
--- OUTSIDE RECORDS SUMMARY | 2025-01-12 12:25 | XMS_ITS | Continuity of Care Document ---
Author Organization [facility] Address [address] [place] [address] Phone Care Team Providers Care Human Resource Officer Name Role Phone Jonna Garcia OD Unavailable Unavailable Allergies, Adverse Reactions, Alerts Substance Reaction Status Criticality No Known Allergies Active No Inform ation Medications Medication Instructions Dosage Effective Dates (start - stop) Status Comments fluorometholone 0.1 % eye drops,suspension SHAKE WELL BEFORE USE. 1 GTT BID OU. - Active lisinopril 10 mg tablet TAKE 1 TABLET BY ORAL ROUTE EVERY DAY - Active -FLUOXETINE 10MG (B) TAKE 1 CAPSULE BY MOUTH ONCE A DAY - Active -NAPROXEN 500MG (B) TAKE 1 TABLET BY MOUTH 2 TIMES EVERY DAY WITH FOOD - Active melatonin 3 mg capsule take 1 capsule 30 -60 minutes before bed time - Active Vitamin D3 25 mcg (1,000 unit) capsule take 1 capsule by mouth daily - Active Procedures Procedure Date EYE EXAM ESTABLISHED PAT OFFICE/OUTPATIENT VISIT, EST TOBACCO NON-USER SYST BP [...] MASS INDEX DOCD MED LIST DOCD IN [facility] OFFICE/OUTPATIENT VISIT, EST TOBACCO NON-USER SYST BP LT 130 MM HG Sys bp less 140 DIAST BP < 80 MM HG Vela bp less 90 DSCHRG MED/CURRENT MED MERGE WEIGHT RECORDED BODY MASS INDEX DOCD MED LIST DOCD IN [facility] OFFICE/OUTPATIENT VISIT, NEW OFFICE/OUTPATIENT VISIT, EST [...] Diagnoses Date Provider Providers Copied on Encounter [facility], [address] [place] [address], [id number], [place] tel:[phone] [facility] 4m MED ck. (chief complaint) Combined forms of age-related cataract, bilateralPeri pheral pterygium, progressive, bilateral 5 Garciaigor Coyle. [address], [address], [place], [place], [id number], [place]. tel:[phone] OFFICE/OUTPA TIENT VISIT, [facility], [address] [place] [address], [id number], [place] tel:[phone] [facility] Medication Review/Polyph armacy (chief complaint)hyp ertension (chief complaint) Body mass index (BMI) 37.0-37.9, adultDietary counseling and surveillanceE ssential (primary) hypertensionP rediabetesHyp erlipidemia, unspecified hyperlipidemi a type 5 Cooper Pappas. [address], [address], [place], [place], [id number], [place]. tel:[phone] [facility], [address] [place] [address], [id number], [place] tel:[phone] [facility] x blurry va (chief complaint) Combined forms of age-related cataract, bilateral 5 Garcia Jonna. [address], [address], [place], [place], [id number], [place]. tel:[phone] [facility], [address] [place] [address], [id number], [place] tel:[phone] [facility] No Information 3 Lucas Montalvo. [address], [place], [place], [id number], [place]. tel:[phone] OFFICE/OUTPA TIENT VISIT, [facility], [address] [place] [address], [id number], [place] tel:[phone] [facility] Growth (chief complaint)Whit wth (chief complaint) Peroneal ganglion cystChronic pain of right ankle 3 Michael Frankel. [address], [place], [place], [id number], [place]. tel:[phone] OFFICE/OUTPA TIENT VISIT, [facility], [address] [place] [address], [id number], [place] tel:[phone] [facility] Follow Up of Depression (chief complaint)Fol low Up of hypertension (chief complaint) Body mass index (BMI) 35.0-35.9, adultDietary counseling and surveillanceE ssential hypertensionM oderate major depression 3 Lucas Montalvo. [address] [place], [place], [id number], [place]. tel:[phone] [facility], [address] [place] [address], [id number], [place] tel:[phone] [facility] Vitamin D insufficiency 3 Lucas Montalvo. [address], [place], [id number], [place]. tel:[phone] OFFICE/OUTPA TIENT VISIT, [facility], [address] [place] [address], [id number], [place] tel:[phone] [facility] hypertension (chief complaint)dep ression (chief complaint) Body mass index (BMI) 34.0-34.9, adultDietary counseling and surveillanceM oderate major depressionEss ential hypertensionB reast cancer screening 3 Lucas Montalvo. [address], [place], [id number], [place]. tel:[phone] [facility], [address] [place] [address], [id number], [place] tel:[phone] [facility] Degenerative lumbar discRetrolist hesis of vertebrae 2 No Information OFFICE/OUTPA TIENT VISIT, [facility], [address] [place] [address], [id number], [place] tel:[phone] [facility] back pain (chief complaint) Body mass index (BMI) 35.0-35.9, adultChronic left-sided low back pain with left-sided sciatica 2 [employer]. [address], [address], [id number], [place]. tel:[phone] OFFICE/OUTPA TIENT VISIT, [facility], [address] [place] [address], [id number], [place] tel:[phone] [facility] UTI (chief complaint) Body mass index (BMI) 35.0-35.9, adultCystitis Essential (primary) hypertension 2 [employer]. [address], [facility] [address], [place], [id number], [place]. tel:[phone] OFFICE/OUTPA TIENT VISIT, [facility], [address] [place] [address], [id number], [place] tel:[phone] [facility] hypertension (chief complaint) Body mass index (BMI) 35.0-35.9, adultEssentia l (primary) hypertension 0 No Information OFFICE/OUTPA TIENT VISIT, [facility], [address] [place] [address], [id number], [place] tel:[phone] [facility] hypertension (chief complaint) Body mass index (BMI) 35.0-35.9, adultHyperlip idemia, unspecified hyperlipidemi a typeEssential (primary) hypertension 9 No Information OFFICE/OUTPA TIENT VISIT, [facility], [address] [place] [address], [id number], [place] tel:[phone] [facility] hypertension (chief complaint)ER Follow Up (chief complaint)Add itional Information (chief complaint) Body mass index (BMI) 35.0-35.9, adultEssentia l (primary) hypertensionI ntermittent palpitations 9 No Information [facility], [address] [place] [address], [id number], [place] tel:[phone] [facility] Abnormal mammogram of right breast 9 No Information OFFICE/OUTPA TIENT VISIT, [facility], [address] [place] [address], [id number], [place] tel:[phone] [facility] Follow Up of Weight management (chief complaint)Add itional info (chief complaint) Body mass index (BMI) 35.0-35.9, adultHyperlip idemia, unspecified hyperlipidemi a typeObesity (BMI 30-39.9) Oct-0 9 No Information OFFICE/OUTPA TIENT VISIT, [facility], [address] [place] [address], [id number], [place] tel:[phone] [facility] annual exam (chief complaint) Body mass index (BMI) 35.0-35.9, adultEncntr for materials development engineer exam (general) (routine) w/o abn findingsCervi hannah cancer screeningBrespanish fork hospital cancer screeningVagi nal discharge Oct- 9 No Information OFFICE/OUTPA TIENT VISIT, [facility], [address] [place] [address], [id number], [place] tel:[phone] [facility] Ocular Discomfort (chief complaint) Peripheral pterygium, progressive, bilateral 9 Salomon Davian. [address] [place], [place], [id number], [place]. tel:[phone] OFFICE/OUTPA TIENT VISIT, [facility], [address] [place] [address], [id number], [place] tel:[phone] [facility] Obesity (chief complaint)Ski n lesion (chief complaint) Body mass index (BMI) 36.0-36.9, adultColon cancer screeningObes ity (BMI 30-39.9)Vener eal disease screeningNume zelalem skin molesConstipa tion, unspecified constipation typeEssential (primary) hypertension 0 9 No Information OFFICE/OUTPA TIENT VISIT, [facility], [address] [place] [address], [id number], [place] tel:[phone] [facility] Weight Management (chief complaint)Obe sity (chief complaint) PrediabetesBo dy mass index (BMI) 36.0-36.9, adultPterygiu m of both eyesObesity (BMI 30-39.9) 9 No Information OFFICE/OUTPA TIENT VISIT, [facility], [address] [place] [address], [id number], [place] tel:[phone] [facility] hypertension (chief complaint) Body mass index (BMI) 29.0-29.9, adultGERD with esophagitisEn counter for screening for nutritional disorderEssen tial (primary) hypertensionL eft anterior knee pain 8 No Information OFFICE/OUTPA TIENT VISIT, [facility], [address] [place] [address], [id number], [place] tel:[phone] [facility] Follow up on lab test(s) (chief complaint) Body mass index (BMI) 29.0-29.9, adultEssentia l (primary) hypertensionP rediabetesEle vated LDL cholesterol levelVitamin D deficiency 8 No Information OFFICE/OUTPA TIENT VISIT, [facility], [address] [place] [address], [id number], [place] tel:[phone] [facility] est care (chief complaint)hyp ertension (chief complaint)hyp [...] hypertension Payers Payer name Insurance type Covered constitution party ID Margareth atkins(s) [facility] [id number] Social History Type Description Quantity Date Captured Comments Alcohol Use Details Unknown Caffeine Use Details Unknown Tobacco Use Status No Information Smoking Status No Information Sex Female Sexual Orientation Straight or heterosexual Aug Gender Identity Female Chief Complaint And Reason For Visit From encounter dated '01/04/2025 09:15'. 4m MED ck. (chief complaint). Description: Patient now has insurance to be scheduled for cat pre opat [facility], appointment was scheduled as a med ck so patient referral wouldn't be lost in progress. Reason For Referral Reason For Referral No Information Plan Of Treatment Date Type Action Status Goal Lipid panel. Due on 028 due Goal FIT. Due on due Goal Vision Screen. Due on due Goal Substance Abuse Screen. Due on due Goal FIT-DNA. Due on due Goal Colonoscopy. Due on 020 due Goal Depression scree kathleen. Due on due Goal Hepatitis C scre ening. Due on due Goal Hep C Ab w/Rflx PCR Genotype,LIPA. Due on due Goal Influenza vaccin e. Due on due Goal Zoster vaccine. Due on due Goal Hep C Ab w/Rflx to Hep C RNA, Quant, RT-PCR. Due on due Goal Unhealthy drug u se screening. Due on due Goal Tdap. Due on due Goal CT-Colonography. Due on due Goal Zoster vaccine ( 1st). Due on due Goal FOBT. Due on due Goal Td vaccine. Due on due Goal Hep C Ab. Due on due Goal Sigmoidoscopy. Due on due Goal Tobacco Use Scre ening. Due on due Goal Hepatitis Panel (incl Hep A Tot, Hep B Tot) w/Rflx. Due on due Goal Depression scree kathleen. Due on due Goal Colonoscopy. Due on due Goal FIT-DNA. Due on due Goal Tobacco Use Scre ening. Due on due Goal Substance Abuse Screen. Due on due Goal Td vaccine. Due on due Goal Unhealthy drug u se screening. Due on due Goal Influenza vaccin e. Due on due Goal Zoster vaccine ( 1st). Due on due Goal Hepatitis C scre ening. Due on due Goal Sigmoidoscopy. Due on due Goal CT-Colonography. Due on due Goal Hep C Ab. Due on due Goal Zoster vaccine. Due on due Goal Lipid panel. Due on 028 due Goal FOBT. Due on due Goal Vision Screen. Due on due Goal Tdap. Due on due Goal Hep C Ab w/Rflx PCR Genotype,LIPA. Due on due Goal FIT. Due on due Goal Hepatitis Panel (incl Hep A Tot, Hep B Tot) w/Rflx. Due on due Goal Hep C Ab w/Rflx to Hep C RNA, Quant, RT-PCR. Due on due Goal Lifestyle education regardin g diet completed Goal FIT-DNA. Due on due Goal Sigmoidoscopy. [...] 020 due Goal Td vaccine. Due on 25 due [...] due Goal Tdap. Due on due Goal CT-Colonography. Due on due Goal Lipid panel. Due on 028 due Goal HPV. Due on due Goal FIT-DNA. Due on due Goal Zoster vaccine ( 1st). Due on due Goal Hep C Ab. Due on due Goal Td vaccine. Due on due Goal Substance Abuse Screen. Due on due Goal FIT. Due on due Goal Sigmoidoscopy. Due on due Goal Hep C Ab w/Rflx PCR Genotype,LIPA. Due on due Goal Colonoscopy. Due on due Goal Depression scree kathleen. Due on due Goal Hepatitis C scre ening. Due on due Goal Hep C Ab w/Rflx to Hep C RNA, Quant, RT-PCR. Due on due Goal Hepatitis Panel (incl Hep A Tot, Hep B Tot) w/Rflx. Due on due Goal HPV. Due on due Goal Influenza vaccin e. Due on due Goal Tdap. Due on due Goal Unhealthy drug u se screening. Due on due Goal FIT-DNA. Due on due Goal Colonoscopy. Due on due Goal CT-Colonography. Due on due Goal Lipid panel. Due on due Goal FIT. Due on due Goal Vision Screen. Due on due Goal FOBT. Due on due Goal Td vaccine. Due on due Goal Hep C Ab. Due on due Goal Sigmoidoscopy. Due on due Goal Depression scree kathleen. Due on due Goal Substance Abuse Screen. Due on due Goal Hepatitis C scre ening. Due on due Goal Hep C Ab w/Rflx to Hep C RNA, Quant, RT-PCR. Due on due Goal Hep C Ab w/Rflx PCR Genotype,LIPA. Due on due Goal Lifestyle education regardin g diet completed Goal Lifestyle education regardin g diet completed Goal Hep C Ab w/Rflx to Hep C RNA, Quant, RT-PCR. Due on due Goal Influenza vaccin e. Due on due Goal Zoster vaccine ( ). Due on due Goal FIT-DNA. Due on due Goal CT-Colonography. Due on due Goal Hepatitis C scre ening. Due on due Goal Substance Abuse Screen. Due on due Goal HPV. Due on due Goal Lipid panel. Due on 028 due Goal Sigmoidoscopy. Due on due Goal Td vaccine. Due on 23 due Goal Tdap. Due on due Goal [...] w/Rflx PCR Genotype,LIPA. Due on due Goal Colonoscopy. Due on [...] Colonoscopy. Due on due Goal Hep C Ab w/Rflx PCR Genotype,LIPA. Due on due Goal Depression scree kathleen. Due on due Goal Hepatitis C scre ening. Due on due Goal Hep C Ab w/Rflx to Hep C RNA, Quant, RT-PCR. Due on due Goal FIT-DNA. Due on due Goal Vision Screen. Due [...] due Goal Colonoscopy. Due on due Goal Vision Screen. Due on due Goal FIT. Due on due Goal Hep C Ab. Due on due Goal CT-Colonography. Due on due Goal Hepatitis C scre ening. Due on due Goal Substance Abuse Screen. Due on due Goal Td vaccine. Due on due Goal Tdap. Due on due Goal FOBT. Due on due Goal FIT. Due on [...] Goal Td vaccine. Due on due Goal CT-Colonography. Due on due Goal Substance Abuse Screen. Due on due Goal FOBT. Due on due Goal Vision Screen. Due on due Goal Influenza vaccin e. Due on due Goal Hepatitis C scre ening. Due on due Goal Unhealthy drug u se screening. Due on due Goal Mammogram. Due on due Goal Lifestyle education regardin g diet completed Goal Influenza vaccin e. Due on due Goal Hep C Ab. Due on due Goal CT-Colonography. Due on due Goal Sigmoidoscopy. Due on due Goal FIT-DNA. Due on due Goal HPV. Due on due Goal Mammogram. Due on due Goal Tdap. Due on due Goal Hepatitis C scre ening. Due on due Goal Hepatitis Panel (incl Hep A Tot, Hep B Tot) w/Rflx. Due on due Goal Zoster vaccine ( ). Due on due Goal Substance Abuse Screen. Due on due Goal Colonoscopy. Due on due Goal Vision Screen. Due on due Goal Unhealthy drug u se screening. Due on due Goal FIT. Due on due Goal Td vaccine. Due on 22 due Goal Depression scree kathleen. Due on due Goal FOBT. Due on due Goal Dietary manageme nt education, guidance, and counseling completed Goal Hepatitis Panel (incl Hep A [...] due Goal Mammogram. Due on due Goal FOBT. Due on due Goal Tdap. Due on due Goal Lifestyle education regardin g diet completed Goal Substance Abuse Screen. Due on due Goal Td vaccine. Due on 19 due Goal Depression scree kathleen. Due on due Goal Hepatitis Panel (incl Hep A Tot, Hep B Tot) w/Rflx. Due on due Goal Colonoscopy. Due on [...] Goal Vision Screen. Due on due Goal FOBT. Due [...] Depression scree kathleen. Due on due Goal Pap/HPV testing. Due [...] Goal Colonoscopy. Due on 019 due Goal Substance Abuse Screen. Due on [...] due Goal FOBT. Due on due Goal Colonoscopy. Due on 019 due Goal Tdap. Due on due Goal Pap/HPV testing. Due on due Goal Mammogram. Due on 9 due Goal Hep C Ab. Due on due Goal Sigmoidoscopy. Due on due Goal Lifestyle education regardin g diet completed Goal Sigmoidoscopy. Due on due Goal HIV 1/0/2 Ag/Ab with Reflex. Due [...] due Goal FOBT. Due on due Goal Dietary manageme nt education, guidance, and counseling completed Goal Lifestyle education regardin g diet completed Goal Lifestyle education regardin g diet completed Goal Lifestyle education regardin g diet completed Goal Lifestyle education regardin g diet completed Referral Ordered: -Ophthalmology (related to Peripheral pterygium, progressive, bilateral) ordered Referral Ordered: /ALEX -Ophthalmology (related to Combined forms of age-related cataract, bilateral) ordered Referral Referred To: Ordered: Referrals: Ophthalmology. . Location: [facility]. Consult ordered Referral Ordered: -Ophthalmology (related to Combined forms [...] Order: Lab Order CBC (INC LUDES DIFF/PLT) ([id number]), Sent on: Sent Future Order: Lab Order COMPREHE NSIVE METABOLIC PANEL ([id number]), Sent on: Sent Future Order: Lab Order HEMOGLOB IN A1C ([id number]), Sent on: Sent Future Order: Lab Order LIPID OR OFILE ([id number]), Sent on: Sent Chalo-13-2025 Future Order: Lab Order TSH AND FREE T4 ([id number]), Sent on: Sent Future Order: Radiology Order Ma mmogram: Screening - Bilateral ([id number]), Ordered on: Ordered Future Order: Radiology Order X- ray L-Spine: 4-5 Views ([id number]), Added on: New Future Order: Lab Order CBC (INC LUDES DIFF/PLT) ([id number]), Sent on: Sent Future Order: Lab Order COMPREHE NSIVE METABOLIC PANEL ([id number]), Sent on: Sent Future Order: Lab Order LIPID PA SETH ([id number]), Sent on: Sent Future Order: Lab Order TSH W/RE FLEX TO FREE T4 ([id number]), Sent on: Sent Future Order: Lab Order VITAMIN D,25-OH,TOTAL,IA ([id number]), Sent on: Sent Future Order: Lab Order HEMOGLOB IN A1C ([id number]), Sent on: Sent Future Order: Lab Order MICROALB UMIN, RANDOM URINE (W/CREATININE) ([id number]), Sent on: Sent Future Order: Radiology Order Ul trasound, Breast, Complete ([id number]), Added on: New Future Order: Radiology Order Di gital Diagnostic Mammogram, Unilateral R ([id number]), Added on: New Future Order: Radiology Order Di gital Screening Mammogram, Bilateral ([id number]), Added on: New Future Order: Lab Order FECAL GL OBIN BY IMMUNOCHEMISTRY ([id number]), Ordered on: Ordered History Of Present Illness Encounter Date Complaint History Of Prese nt Illness 4m MED ck. Patient now has insurance to be scheduled for cat pre op at [facility], appointment was scheduled as a med ck so patient referral wouldn't be lost in progress. hypertension The HTN started in 2019. Risk factors include age over age 60, depression, high salt intake, inactive lifestyle and obesity. Associated symptoms include headache. Pertinent negatives include chest pain, claudication, confusion, dyspnea, fatigue, irregular heartbeat/palpitations, nausea, transient weakness, tremor, visual disturbances and vomiting. Medication Review/Polypharmacy r efill includes Lisinopril, last taken 3 years ago. She was being seen in [place] for HTN and getting her medication there. [...] some weight recently. No family Hx of OH's or strokes, no heart problems. No family [...] ankle.Patient brought an Ultrasound report done in [place] on 2021.Patient complains the growth on her [...] of hypertension The HT N started in 2019. It is currently improving. Risk factors include [...] due to not having insurance.Patient going to [place] for two months. hypertension Risk factors inc [...] vomiting. Additional Information Seen at [facility] on 12/02/18 for near syncope episode [...] that was prescribed by her doctor in [place] she has not been taking medication for [...] No Information Instructions Date Instruction Additional Infor mation Impression/Plan Related to Combi ramin forms of age-related cataract, bilateral Impression/Plan Related to Perip heral pterygium, progressive, bilateral Will check labs and call pt with [...] a psychiatrist, psychologist, nurse, or social media analyst)--DeclinedSee someone right away if you want to [...] a psychiatrist, psychologist, nurse, or social media analyst)--Referred.See someone right away if you want to [...] or as needed. Related to Encntr for materials development engineer exam (general) (routine) w/o abn findings Giving [...] hepatotoxicity. Instructed NSAIDs are not indicated for rat exterminator use. Instructed that this medication should not [...] forms of age-related ca taract, bilateral: H25.813 assessment Peripheral pterygium, progressiv e, bilateral impression Peripheral pterygium, progressiv e, bilateral: H11.053 Patient Care Teams Name Effective Dates (start - stop) Status Members No Information
== END 2025-01-12 11:56 | disposition home or self-care (01) ==
LOC: HO.PMC 11:27
PROVIDERS: PCP Internal Medicine; Visit Provider Registered Nurse Emergency
DX: M25.552 Pain in left hip (principal); M54.50 Low back pain, unspecified; M16.12 Unilateral primary osteoarthritis, left hip; M47.27 Other spondylosis with radiculopathy, lumbosacral region; G89.4 Chronic pain syndrome; G90.522 Complex regional pain syndrome I of left lower limb
CPT/HCPCS: 99213; G2211

== ENCOUNTER → 2025-01-12 11:26 | Outpatient (BNVA) | payer OTHER, SELFPAY | PROVIDERS: PCP Internal Medicine; Visit Provider Registered Nurse Emergency | DX: Z51.81 Encounter for therapeutic drug level monitoring (principal); F11.20 Opioid dependence, uncomplicated; M25.552 Pain in left hip; M54.50 Low back pain, unspecified; M16.12 Unilateral primary osteoarthritis, left hip; M47.27 Other spondylosis with radiculopathy, lumbosacral region; G90.522 Complex regional pain syndrome I of left lower limb; G89.4 Chronic pain syndrome | CPT/HCPCS: 99212 ==

== ENCOUNTER 2025-01-14 10:36 | Outpatient (AMB) | payer OTHER, SELFPAY ==
[2025-01-14 10:41] VITALS: BP 126/84; PULSE 96; TEMP 36.9; O2SAT 97; BMI 48.6
--- NOTE | 2025-01-14 10:41 | MHC.PC.OV ---
Vital Signs 01/14/25 10:41 Height 5 ft 2 in Weight 266 lb BMI 48.6 BP 126/84 Blood Pressure Location Rt brachial Position Sitting Pulse 96 Pulse Source Pulse Oximeter Temp 98.4 F Temp Source Oral Pulse Oximetry (%) 97 Oxygen Delivery Method Room Air Intake Visit Reasons: BLE Swelling/Edema Allergies adhesive tape Allergy (Intermediate, Verified 01/14/25 10:41) skin breakdown Medication List - Last Reconciled 01/14/25 by Skyler Whitfield MD cetirizine 10 mg PO DAILY PRN cholecalciferol (vitamin D3) (Vitamin D3) 2,000 units PO DAILY 90 days furosemide 10 mg (1/2 x 20 mg) PO QAM gabapentin 400 mg PO TID 30 days ipratropium bromide 2 sprays intranasal DAILY PRN ketotifen fumarate 0.025%(0.035%) drps ophthalmic (eye) magnesium oxide 400 mg PO DAILY 30 days metoprolol succinate ER 25 mg PO DAILY 90 days dryeldtlgksw-wvt-dveb-FA-vit K 45 mg iron- 800 mcg-120 mcg (Bariatric Multivitamins) 1 cap PO .QD tramadol 50 mg PO BID PRN 30 days triamcinolone acetonide 2 sprays intranasal DAILY valsartan 80 mg PO DAILY vibegron (Gemtesa) 75 mg PO DAILY vitamin A 2 caps PO DAILY walker As directed zinc 25 mg PO DAILY Tobacco use date assessed: 01/14/25 Dental Screening Dental Screen Date: 01/14/25 Did you have a dental visit in the last 12 months?: Yes Did you have a dental problem in the last 6 months where you did not have access to dental care?: No Was dental information given to patient?: Patient has dentist HPI BLE Swelling/Edema HPI Details History - The patient is a 59-year-old female presenting with edema. - The patient has experienced long-standing swelling in the legs, which has recently worsened. - She noted a change in skin coloration, describing it as darkening, which fluctuates with the presence of edema . - The patient reports visiting a vocational rehabilitation administrator at the end of November but did not recall discussing the tenderness or potential vascular issues during that appointment. - She expresses uncertainty regarding her last visit to a vascular specialist but mentioned a potential appointment within the next two weeks. - The patient has edema despite previous use of diuretics (water pills) and compression stockings, patient is currently on half a tablet of 20 mg frusemide every other day As per Cardiology recommendation not to increase that Problem List - Edema - Hypertension - Venous Insufficiency Patient Instructions - Keep your legs elevated as much as possible to help decrease swelling. - You have an appointment scheduled with a vascular specialist; be sure to attend it. - Pay attention to any changes in skin color or worsening swelling and seek care if needed. Review of Systems - General: No fever no chills - Neurological: No headaches - Ear nose throat: No sore throat no hearing difficulty no ear pain - Cardiovascular: No syncope, no chest pain, no palpitations - Gastrointestinal: No nausea vomiting or diarrhea - Endocrine: No polyuria polydipsia no heat intolerance - Genitourinary: No dysuria , no blood in urine Physical Exam General: No acute distress HEENT: No acute findings Neck: Supple Respiratory system: Able to talk in full sentences, no audible wheeze Cardiovascular: S1-S2 regular in rate and rhythm Gastrointestinal: No pain Extremities: Lower extremity Edema present 1+ pitting bilateral with chronic skin changes around ankles 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: Alert awake oriented x3 motor sensory intact Skin: Dark color change noted due to edema PFSH Medical History Pain at surgical incision Urinary incontinence in female Stress incontinence Lumbar back pain with radiculopathy affecting left lower extremity GERD (gastroesophageal reflux disease) HTN (hypertension) Complex regional pain syndrome i of left lower limb Chronic pain syndrome Cardiac pacemaker in situ Cardiomyopathy Second degree AV block Allergies Osteoarthritis of left knee Spondylosis of lumbosacral spine with radiculopathy Back pain Surgical History History of hernia repair (~11/12/23) H/O gastric bypass Gastric bypass status for obesity Hx of cholecystectomy Hx of breast reduction, elective Hx of colonoscopy History of esophagogastroduodenoscopy (EGD) History of permanent cardiac pacemaker placement Family History Father Asthma Mother HTN (hypertension) Alzheimer disease Brother Cardiac pacemaker Sister Colon cancer Metastatic cancer Social History Household Members: None Housing: Apartment Do you presently have visiting nurse or other home services: Yes ([employer]) Alcohol intake: former Comment: counts correct Patient Tobacco Use Status: Former Tobacco user Cigarette Packs Per Day: 0.5 e-Cigarette/Vaping Use: Never Used Advance Directives Date on File: 11/12/23 service: No 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al status: unemployed and disabled 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 Cognitive needs: No Hearing needs: No Vision needs: Yes Questionnaire Thrive Questionnaire Date Thrive assessed: 11/12/23 RITA-7 AMB Questionnaire RITA-7 Date RITA - 7 assessed: 06/18/24 Source: Developed by Drs. Omi Oneill, Barbara Mims, Rodrigo Flores and colleagues, with an educational kevyn from [employer]. Physical exam (Primary Care) Vital Signs: Last Vital Signs Temp 98.4 F 01/14/25 10:41 Pulse 96 01/14/25 10:41 BP 126/84 01/14/25 10:41 Pulse Ox 97 01/14/25 10:41 Oxygen Delivery Method Room Air 01/14/25 10:41 BMI result Body Mass Index 48.6 Tobacco/Smoking Status: Tobacco use Status Tobacco use date assessed 01/14/25 01/14/25 10:42 Patient Tobacco Use Status Former Tobacco user 01/14/25 10:42 e-Cigarette/Vaping Use Never Used 01/14/25 10:42 Thrive Assessment: Date of Thrive Assessment Date Thrive assessed 11/12/23 01/14/25 10:42 Coding Level of Care Code Est Pt Level 3 (54973) Diagnoses Vascular insufficiency of extremity I99.8 Chronic venous stasis dermatitis of both lower extremities I87.2 1+ pitting edema R60.9 Assessment & Plan Assessment & Plan (1) Vascular insufficiency of extremity: Code(s): I99.8 - Other disorder of circulatory system Category: Medical (2) Chronic venous stasis dermatitis of both lower extremities: Code(s): I87.2 - Venous insufficiency (chronic) (peripheral) Category: Medical (3) 1+ pitting edema: Code(s): R60.9 - Edema, unspecified Category: Medical Plan History - The patient is a 59-year-old female presenting with edema. - The patient has experienced long-standing swelling in the legs, which has recently worsened. - She noted a change in skin coloration, describing it as darkening, which fluctuates with the presence of edema . - The patient reports visiting a vocational rehabilitation administrator at the end of November but did not recall discussing the tenderness or potential vascular issues during that appointment. - She expresses uncertainty regarding her last visit to a vascular specialist but mentioned a potential appointment within the next two weeks. - The patient has edema despite previous use of diuretics (water pills) and compression stockings, patient is currently on half a tablet of 20 mg frusemide every other day As per Cardiology recommendation not to increase that Problem List - Edema - Hypertension - Venous Insufficiency Patient Instructions - Keep your legs elevated as much as possible to help decrease swelling. - You have an appointment scheduled with a vascular specialist; be sure to attend it. - Pay attention to any changes in skin color or worsening swelling and seek care if needed.
--- OUTSIDE RECORDS SUMMARY | 2025-01-14 11:06 | XMS_ITS | Clinical Summary ---
Author Organization [employer] Address [address] [place] [address] Care Team Providers Care Automotive Quality Engineer Name Role Phone Unavailable Primary Care Provider [...] Active beta carotene (vitamin A) 3 MG (12199 UT) capsule TOME 2 C PSULAS POR [...] Description 06/21/2025 3:00 PM EDT Office Visit [facility] [address] [place] [address] Akilah Shaikh Health Maintenance Due Date Last Done Comments CT Colonography 1964 Colonoscopy 1964 Colorectal Cancer Screening 1964 Depression Screening 1964 FIT DNA/Cologuard 1964 FIT 1964 FOBT 1964 HIV Screening 1964 Lipid Panel 1964 SDOH Screening 1964 Sigmoidoscopy 1964 Alcohol/Substance Use Screening 1976 Hepatitis C Screening 1982 Pap Smear 1985 Cervical Cancer Screening 1994 HPV/Cotest 1994 Mammogram 2004 COVID-19 Vaccine ( - 2023-2 5 season) 2024 08/20/2021, 11/29/2020, [...] patient's age to complete this topic Meningococcal B Vaccine Aged Out No l onger eligible based on patient's age to complete [...] Most Recently Relevant to Health Maintenance Insurance [facility] MEDICAID STAND ADULT
--- OUTSIDE RECORDS SUMMARY | 2025-01-14 11:06 | XMS_ITS | Continuity of Care Document ---
Author Organization [email or web address] Address [address] [facility] [facility] [address] [place] [address] Phone Care Team Providers Care Union Representative Name Role Phone Jonna Garcia OD Unavailable Unavailable Allergies, Adverse Reactions, Alerts Substance Reaction Status Criticality No Known Allergies Active No Inform ation Medications Medication Instructions Dosage Effective Dates (start - stop) Status Comments fluorometholone 0.1 % eye drops,suspension SHAKE WELL BEFORE USE. 1 GTT BID OU. - Active lisinopril 10 mg tablet TAKE 1 TABLET BY ORAL ROUTE EVERY DAY - Active -NAPROXEN 500MG (B) TAKE 1 TABLET BY MOUTH 2 TIMES EVERY DAY WITH FOOD - Active -FLUOXETINE 10MG (B) TAKE 1 CAPSULE BY MOUTH ONCE A DAY - Active melatonin 3 mg capsule take [...] MASS INDEX DOCD MED LIST DOCD IN [facility] OFFICE/OUTPATIENT VISIT, EST TOBACCO NON-USER SYST BP LT 130 MM HG Sys bp less 140 DIAST BP < 80 MM HG Vela bp less 90 DSCHRG MED/CURRENT MED MERGE WEIGHT RECORDED BODY MASS INDEX DOCD MED LIST DOCD IN [facility] OFFICE/OUTPATIENT VISIT, NEW OFFICE/OUTPATIENT VISIT, EST [...] Diagnoses Date Provider Providers Copied on Encounter [facility], [address] [place] [address], [id number], [place] tel:[phone] [facility] 4m MED ck. (chief complaint) Combined forms of age-related cataract, bilateralPeri pheral pterygium, progressive, bilateral 5 Garciaigor Coyle. [address], [place], [place], [id number], [place]. tel:[phone] OFFICE/OUTPA TIENT VISIT, [facility], [address] [place] [address], [id number], [place] tel:[phone] [facility] Medication Review/Polyph armacy (chief complaint)hyp ertension (chief complaint) Body mass index (BMI) 37.0-37.9, adultDietary counseling and surveillanceE ssential (primary) hypertensionP rediabetesHyp erlipidemia, unspecified hyperlipidemi a type 5 Cooper Pappas. [address], [address], [place], [place], [id number], [place]. tel:[phone] [facility], [address] [place] [address], [id number], [place] tel:[phone] [facility] x blurry va (chief complaint) Combined forms of age-related cataract, bilateral 5 Garcia Jonna. [address], [address], [place], [place], [id number], [place]. tel:[phone] [facility], [address] [place] [address], [id number], [place] tel:[phone] [facility] No Information 3 Lucas Montalvo. [address], [place], [place], [id number], [place]. tel:[phone] OFFICE/OUTPA TIENT VISIT, [facility], [address] [place] [address], [id number], [place] tel:[phone] [facility] Growth (chief complaint)Whit wth (chief complaint) Peroneal ganglion cystChronic pain of right ankle 3 Michael Frankel. [address], [place], [place], [id number], [place]. tel:[phone] OFFICE/OUTPA TIENT VISIT, [facility], [address] [place] [address], [id number], [place] tel:[phone] [facility] Follow Up of Depression (chief complaint)Fol low Up of hypertension (chief complaint) Body mass index (BMI) 35.0-35.9, adultDietary counseling and surveillanceE ssential hypertensionM oderate major depression 3 Lucas Montalvo. [address] [facility] [address] [facility] [address], [place], [place], [id number], [place]. tel:[phone] [facility], [address] [place] [address], [id number], [place] tel:[phone] [facility] Vitamin D insufficiency 3 Lucas Montalvo. [address], [place], [id number], [place]. tel:[phone] OFFICE/OUTPA TIENT VISIT, [facility], [address] [place] [address], [id number], [place] tel:[phone] [facility] hypertension (chief complaint)dep ression (chief complaint) Body mass index (BMI) 34.0-34.9, adultDietary counseling and surveillanceM oderate major depressionEss ential hypertensionB reast cancer screening 3 Lucas Montalvo. [address], [place], [id number], [place]. tel:[phone] [facility], [address] [place] [address], [id number], [place] tel:[phone] [facility] Degenerative lumbar discRetrolist hesis of vertebrae 2 No Information OFFICE/OUTPA TIENT VISIT, [facility], [address] [place] [address], [id number], [place] tel:[phone] [facility] back pain (chief complaint) Body mass index (BMI) 35.0-35.9, adultChronic left-sided low back pain with left-sided sciatica 2 [employer]. [address], [address], [id number], [place]. tel:[phone] OFFICE/OUTPA TIENT VISIT, [facility], [address] [place] [address], [id number], [place] tel:[phone] [facility] UTI (chief complaint) Body mass index (BMI) 35.0-35.9, adultCystitis Essential (primary) hypertension 2 [employer]. [address], [facility] [address], [place], [id number], [place]. tel:[phone] OFFICE/OUTPA TIENT VISIT, [facility], [address] [place] [address], [id number], [place] tel:[phone] [facility] hypertension (chief complaint) Body mass index (BMI) 35.0-35.9, adultEssentia l (primary) hypertension 0 No Information OFFICE/OUTPA TIENT VISIT, [facility], [address] [place] [address], [id number], [place] tel:[phone] [facility] hypertension (chief complaint) Body mass index (BMI) 35.0-35.9, adultHyperlip idemia, unspecified hyperlipidemi a typeEssential (primary) hypertension 9 No Information OFFICE/OUTPA TIENT VISIT, [facility], [address] [place] [address], [id number], [place] tel:[phone] [facility] hypertension (chief complaint)ER Follow Up (chief complaint)Add itional Information (chief complaint) Body mass index (BMI) 35.0-35.9, adultEssentia l (primary) hypertensionI ntermittent palpitations 9 No Information [facility], [address] [place] [address], [id number], [place] tel:[phone] [facility] Abnormal mammogram of right breast 9 No Information OFFICE/OUTPA TIENT VISIT, [facility], [address] [place] [address], [id number], [place] tel:[phone] [facility] Follow Up of Weight management (chief complaint)Add itional info (chief complaint) Body mass index (BMI) 35.0-35.9, adultHyperlip idemia, unspecified hyperlipidemi a typeObesity (BMI 30-39.9) Oct-0 9 No Information OFFICE/OUTPA TIENT VISIT, [facility], [address] [place] [address], [id number], [place] tel:[phone] [facility] annual exam (chief complaint) Body mass index (BMI) 35.0-35.9, adultEncntr for k9 handler exam (general) (routine) w/o abn findingsCervi hannah cancer screeningBrebeaver valley hospital cancer screeningVagi nal discharge Oct- 9 No Information OFFICE/OUTPA TIENT VISIT, [facility], [address] [place] [address], [id number], [place] tel:[phone] [facility] Ocular Discomfort (chief complaint) Peripheral pterygium, progressive, bilateral 9 Salomon Davian. [address] [place], [place], [id number], [place]. tel:[phone] OFFICE/OUTPA TIENT VISIT, [facility], [address] [place] [address], [id number], [place] tel:[phone] [facility] Obesity (chief complaint)Ski n lesion (chief complaint) Body mass index (BMI) 36.0-36.9, adultColon cancer screeningObes ity (BMI 30-39.9)Vener eal disease screeningNume zelalem skin molesConstipa tion, unspecified constipation typeEssential (primary) hypertension 0 9 No Information OFFICE/OUTPA TIENT VISIT, [facility], [address] [place] [address], [id number], [place] tel:[phone] [facility] Weight Management (chief complaint)Obe sity (chief complaint) PrediabetesBo dy mass index (BMI) 36.0-36.9, adultPterygiu m of both eyesObesity (BMI 30-39.9) 9 No Information OFFICE/OUTPA TIENT VISIT, [facility], [address] [place] [address], [id number], [place] tel:[phone] [facility] hypertension (chief complaint) Body mass index (BMI) 29.0-29.9, adultGERD with esophagitisEn counter for screening for nutritional disorderEssen tial (primary) hypertensionL eft anterior knee pain 8 No Information OFFICE/OUTPA TIENT VISIT, [facility], [address] [place] [address], [id number], [place] tel:[phone] [facility] Follow up on lab test(s) (chief complaint) Body mass index (BMI) 29.0-29.9, adultEssentia l (primary) hypertensionP rediabetesEle vated LDL cholesterol levelVitamin D deficiency 8 No Information OFFICE/OUTPA TIENT VISIT, [facility], [address] [place] [address], [id number], [place] tel:[phone] [facility] est care (chief complaint)hyp ertension [...] Payer name Insurance type Covered democrat ID Margareth atkins(s) Man [facility] [id number] Social History Type Description Quantity Date Captured [...] Of Treatment Date Type Action Status Goal Tdap. Due on due Goal CT-Colonography. Due on due Goal Hepatitis Panel (incl Hep A Tot, Hep B Tot) w/Rflx. Due on due Goal Influenza vaccin e. Due on due Goal Lipid panel. Due on 028 due Goal Zoster vaccine ( ). Due on due Goal FOBT. Due on due Goal Td vaccine. Due on 25 due Goal Hep C Ab w/Rflx PCR Genotype,LIPA. Due on due Goal FIT. Due on due Goal Vision Screen. Due on due Goal Substance Abuse Screen. Due on due Goal FIT-DNA. Due on due Goal Colonoscopy. Due on 020 due Goal Depression scree kathleen. Due on due Goal Hepatitis C scre ening. Due on due Goal Zoster vaccine. Due [...] ening. Due on due Goal Hep C Ab. [...] completed Goal Tdap. Due on due Goal Sigmoidoscopy. Due on due Goal Td vaccine. Due on due Goal Lipid panel. Due on 028 due Goal Hepatitis C scre ening. Due [...] Zoster vaccine. Due on due Goal Hepatitis Panel (incl Hep A Tot, Hep B Tot) w/Rflx. Due on due Goal HPV. Due on due Goal Influenza vaccin e. Due on due Goal Tdap. Due on due Goal Unhealthy drug u se screening. Due on due Goal FIT-DNA. Due on due Goal Colonoscopy. Due on [address]-Colonography. Due on due Goal [...] 1st). Due on due Goal Hep C Ab w/Rflx PCR Genotype,LIPA. Due on due Goal FOBT. Due on due Goal Unhealthy drug u se screening. Due on due Goal Influenza vaccin e. Due on due Goal FIT-DNA. Due on due Goal CT-Colonography. Due on due Goal Hepatitis C scre ening. Due on due Goal Substance Abuse Screen. Due on due Goal HPV. Due on due Goal Hep C Ab. [...] Goal Lipid panel. Due on due Goal Sigmoidoscopy. Due on due Goal FIT. Due on due Goal Hep C Ab w/Rflx to Hep C RNA, Quant, RT-PCR. Due on due Goal Lifestyle education regardin g diet completed Goal Lifestyle education regardin g diet completed Goal Tdap. Due on due Goal Influenza vaccin e. Due on due Goal Zoster vaccine ( ). Due on due Goal FIT-DNA. Due on due Goal HPV. Due on due Goal Substance Abuse Screen. Due on due Goal Unhealthy drug u se screening. Due on due Goal Colonoscopy. Due on due Goal Hepatitis C scre ening. Due on due Goal Depression scree kathleen. Due on due Goal Hep C Ab. Due on due Goal Td vaccine. Due on due Goal FIT. Due on due Goal CT-Colonography. Due on due Goal Vision Screen. Due on due Goal Sigmoidoscopy. Due on due Goal Hep C Ab w/Rflx to Hep C RNA, Quant, RT-PCR. Due on due Goal Hep C Ab w/Rflx PCR Genotype,LIPA. Due on due Goal Hepatitis Panel (incl Hep A Tot, Hep B Tot) w/Rflx. Due on due Goal Lipid panel. Due on due Goal FOBT. Due on [...] w/Rflx PCR Genotype,LIPA. Due on due Goal HPV. Due on due Goal Sigmoidoscopy. Due on due Goal CT-Colonography. Due on due Goal FOBT. Due on due Goal Colonoscopy. Due on 022 due Goal Td vaccine. Due on due Goal Substance Abuse Screen. Due on due Goal Lifestyle education [...] vaccine ( ). Due on due Goal Influenza vaccin e. Due on due Goal FIT-DNA. Due on due Goal Colonoscopy. Due on due Goal Vision Screen. Due on due Goal FIT. Due on due Goal Hep C Ab. Due on due Goal CT-Colonography. Due on due Goal Lifestyle education regardin g diet completed Goal FIT. Due on due Goal FIT-DNA. Due on due Goal Hepatitis C scre ening. Due on due Goal HPV. Due on due Goal Unhealthy drug u se screening. Due on due Goal Zoster vaccine ( ). Due on due Goal CT-Colonography. Due on [...] due Goal Colonoscopy. Due on due Goal Dietary manageme nt education, guidance, and counseling completed Goal Hep C Ab. Due on due Goal FOBT. Due on due Goal Vision Screen. Due on due Goal Tdap. Due on due Goal Colonoscopy. Due on due Goal Hepatitis Panel (incl Hep A Tot, Hep B Tot) w/Rflx. Due on due Goal Mammogram. Due on 1 due Goal Sigmoidoscopy. Due on due Goal Pap/HPV testing. Due on due Goal Influenza vaccin e. Due on due Goal Substance Abuse Screen. Due on due Goal Depression scree kathleen. Due on due Goal Td vaccine. Due on 20 due Goal Lifestyle education regardin g diet completed Goal Mammogram. Due on 1 due Goal Tdap. Due on due Goal Vision Screen. Due on due Goal Sigmoidoscopy. Due on due Goal Hepatitis Panel (incl Hep A Tot, Hep B Tot) w/Rflx. Due on due Goal Colonoscopy. Due on 019 due Goal FOBT. Due on due Goal Td vaccine. Due on 19 due Goal Depression scree kathleen. Due on due Goal Hep C Ab. Due on due Goal Substance Abuse Screen. [...] due Goal Tdap. Due on due Goal Depression scree kathleen. [...] Influenza vaccin e. Due on due Goal Substance Abuse Screen. [...] Goal Colonoscopy. Due on 019 due Goal Pap/HPV testing. Due on due Goal Tdap. Due on due Goal Hepatitis Panel (incl Hep A Tot, Hep B Tot) w/Rflx. Due on due Goal Mammogram. Due on 9 due Goal Influenza vaccin e. Due on due Goal Depression scree kathleen. Due on due Goal Hep C Ab. Due on due Goal Td vaccine. Due on 19 due Goal Vision Screen. Due on due Goal FOBT. Due on due Goal Sigmoidoscopy. Due on due Goal Substance Abuse Screen. [...] Goal Mammogram. Due on 9 due Goal Tdap. Due on due Goal Substance Abuse Screen. Due on due Goal FOBT. Due on due Goal Sigmoidoscopy. Due on due Goal Influenza vaccin e. Due on due Goal Depression scree kathleen. Due on due Goal Hep C Ab. Due on due Goal Td vaccine. Due on 19 due Goal Pap/HPV testing. Due on due Goal Dietary manageme nt [...] Referred To: Ordered: Referrals: Ophthalmology. . Location: [facility]. Consult ordered Referral Ordered: -Ophthalmology (related to [...] Order: Lab Order CBC (INC LUDES DIFF/PLT) ([id number]), Sent on: Sent Future Order: Lab Order COMPREHE NSIVE METABOLIC PANEL ([id number]), Sent on: Sent Future Order: Lab Order HEMOGLOB IN A1C ([id number]), Sent on: Sent Future Order: Lab Order LIPID CO OFILE ([id number]), Sent on: Sent Chalo-13-2025 Future Order: Lab Order TSH AND FREE T4 ([id number]), Sent on: Sent Future Order: Radiology Order Ma mmogram: Screening - Bilateral ([id number]), Ordered on: Ordered Future Order: Radiology Order X- ray L-Spine: 4-5 Views ([id number]), Added on: New Future Order: Lab Order CBC (INC LUDES DIFF/PLT) ([id number]), Sent on: Sent Future Order: Lab Order COMPREHE NSIVE METABOLIC PANEL ([id number]), Sent on: Sent Future Order: Lab Order LIPID PA SETH ([id number]), Sent on: Sent Future Order: Lab Order TSH W/RE FLEX TO FREE T4 ([id number]), Sent on: Sent Future Order: Lab Order VITAMIN D,25-OH,TOTAL,IA ([id number]), Sent on: Sent Future Order: Lab Order HEMOGLOB IN A1C ([id number]), Sent on: Sent Future Order: Lab Order MICROALB UMIN, RANDOM URINE (W/CREATININE) ([id number]), Sent on: Sent Future Order: Radiology Order Ul trasound, Breast, Complete ([id number]), Added on: New Future Order: Radiology Order Di gital Diagnostic Mammogram, Unilateral R ([id number]), Added on: New Future Order: Radiology Order Di gital Screening Mammogram, Bilateral ([id number]), Added on: New Future Order: Lab Order FECAL GL OBIN BY IMMUNOCHEMISTRY ([id number]), Ordered on: Ordered History Of Present Illness Encounter Date Complaint History Of Prese nt Illness 4m MED ck. Patient now has insurance to be scheduled for cat pre op at [facility], appointment was scheduled as a med ck [...] years ago. She was being seen in [place] for HTN and getting her medication there. [...] some weight recently. No family Hx of AL's or strokes, no heart problems. No family [...] ankle.Patient brought an Ultrasound report done in [place] on 2021.Patient complains the growth on her [...] due to not having insurance.Patient going to [place] for two months. hypertension Risk factors inc [...] disturbances and vomiting. Additional Information Seen at [facility] on 12/02/18 for near syncope episode lasting [...] that was prescribed by her doctor in [place] she has not been taking medication for [...] (such as a psychiatrist, psychologist, nurse, or web content & social media manager)--DeclinedSee someone right away if you want [...] et Related to Dietary counseling and surveillance - Reduce portion siz es of meals.- [...] to Body mass index (BMI) 34.0-34.9, adult Start fluoxetine 10 mg by mouth daily.See a counselor (such as a psychiatrist, psychologist, nurse, or web content & social media manager)--Referred.See someone right away if you want [...] Prevention Lifeline: Related to Moderate major depression Continue lisinopril as directed.Try to lose weight [...] to Body mass index [BMI] 35.0-35.9, adult Push fluids, return or see PCP if no daily improvement, go to ER if worse. Related to Cystitis Follow up with PCP. Related to E ssential (primary) hypertension Giving encouragement to exercise Related [...] to Body mass index (BMI) 35.0-35.9, adult - Reduce portion siz es of [...] 1 month. Related to Obesity (BMI 30-39.9) Eat a variety of ha ds every [...] month. Related to Hyperlipidemia, unspecified hyperlipidemia type Giving [...] or as needed. Related to Encntr for k9 handler exam (general) (routine) w/o abn findings Giving [...] a week. Related to Obesity (BMI 30-39.9) Drink plenty of flui ds, enough so [...] position. Related to Constipation, unspecified constipation type Continue to monitor moles for change in color, size, and shape. Related to Numerous skin moles BMI > 30 -Reduce por tion sizes [...] hepatotoxicity. Instructed NSAIDs are not indicated for long term care social worker use. Instructed that this medication should not [...]
== END 2025-01-14 11:53 | disposition home or self-care (01) ==
LOC: HO.HMCC 10:37
PROVIDERS: PCP Internal Medicine; Visit Provider Internal Medicine
DX: I99.8 Other disorder of circulatory system (principal); I87.2 Venous insufficiency (chronic) (peripheral); R60.9 Edema, unspecified

== ENCOUNTER → 2025-01-14 10:36 | Outpatient (BNVA) | payer OTHER, SELFPAY | PROVIDERS: PCP Internal Medicine; Visit Provider Internal Medicine | DX: I87.2 Venous insufficiency (chronic) (peripheral) (principal); R60.9 Edema, unspecified; I99.8 Other disorder of circulatory system | CPT/HCPCS: 99212 ==

== ENCOUNTER 2025-01-18 15:01 | Outpatient (AMB) | payer OTHER, SELFPAY ==
[2025-01-18 15:02] VITALS: BMI 48.6
--- NOTE | 2025-01-18 15:02 | MHC.OFFVIS ---
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 Pt states Left leg started first and now the Right LE a couple months. Pt states swelling w/ or w/o ambulation. States its causing pain. Discoloration in bilateral LE ankles. 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 We utilized a video radioisotope technologist. Complaints include pain from her knees to her feet, swelling of lower extremities, discoloration, and heaviness of the lower extremities. It has been affecting their daily activities including walking, standing, and physical activity. It is noted in bilateral legs. She states the discoloration has been occurring for the last couple of months. She states the left leg has been swollen for years now and the right leg started a couple of months ago. She denies any injuries or wounds to either leg. She is a nonsmoker and is not a diabetic. Her mom has a hx of blood clots, but there is no family hx of clotting disorders. She has been seen by Cardiology and diuretics were brought up; however, they are hesitant to start any due to her cardiac issues. She is seen by pain mgte for extensive back issues/chronic pain. Patient denies any previous venous surgery or injections. Patient denies any history of DVT/ PE. Patient denies any history of phlebitis. Trial of compression includes - has tried compression socks but they were difficult to get on and she states when she elevates her legs they get more painful They now present for vascular evaluation regarding their varicose veins. [facility] Medical History Pain at surgical incision Urinary incontinence in female Stress incontinence Lumbar back pain with radiculopathy affecting left lower extremity GERD (gastroesophageal reflux disease) HTN (hypertension) Complex regional pain syndrome i of left lower limb Chronic pain syndrome Cardiac pacemaker in situ Cardiomyopathy Second degree AV block Allergies Osteoarthritis of left knee Spondylosis of lumbosacral spine with radiculopathy Back pain Surgical History History of hernia repair (~11/12/23) H/O gastric bypass Gastric bypass status for obesity Hx of cholecystectomy Hx of breast reduction, elective Hx of colonoscopy History of esophagogastroduodenoscopy (EGD) History of permanent cardiac pacemaker placement Family History Father Asthma Mother HTN (hypertension) Alzheimer disease Brother Cardiac pacemaker Sister Colon cancer Metastatic cancer Social History Household Members: None Housing: Apartment Do you presently have visiting nurse or other home services: Yes (OUT PATIENT THERAPIST) Alcohol intake: former Comment: counts correct Patient Tobacco Use Status: Former Tobacco user Cigarette Packs Per Day: 0.5 e-Cigarette/Vaping Use: Never Used Advance Directives Date on File: 11/12/23 service: No 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al status: unemployed and disabled 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 Cognitive needs: No Hearing needs: No Vision needs: Yes Review of Systems Const Reports as per HPI and Denies weakness ENT Reports Normal hearing present and Denies dizziness Card Reports as per HPI, Denies chest pain, Denies chest pain at rest, Denies chest pain with activity, Denies dyspnea and Denies dyspnea on exertion Resp Reports as per HPI, Denies cough, Denies dyspnea and Denies dyspnea on exertion GI Reports as per HPI, Denies abdominal pain, Denies nausea and Denies vomiting Musc Denies numbness Skin/Breast Reports as per HPI, Denies erythema and Denies wounds Neuro Reports Normal hearing present, Denies dizziness, Denies numbness, Denies Sensory deficit (Neuro) and Denies weakness Psych Reports no additional complaints Endo Reports no additional complaints Physical Exam Vital Signs: BMI result Body Mass Index 48.6 Const General: healthy appearing and no acute distress Orientation/consciousness: patient oriented x3 HEENT Head: Yes normal to inspection Ears: hearing grossly normal bilaterally Mouth: Normal oral and palatal mucosa present Resp Effort & Inspection: normal respiratory effort and able to speak in complete sentences Auscultation: clear to auscultation bilaterally Cardio Jugular venous distension: no JVD Rate: regular rate Rhythm: regular rhythm Heart sounds: S1 normal heart sound present and S2 normal heart sound present Bruits: no abdominal aortic bruits, no carotid bruits, no femoral bruits and no renal bruits Peripheral pulses: Peripheral pulses 2+ throughout GI Inspection: Yes normal to inspection Palpation (GI): No Abdominal aortic bruit present Skin General skin exam: no rashes or lesions noted Wounds: no wounds Hair: normal Neuro General: patient oriented x3 Cranial nerves: Yes Normal hearing present Cognition (Neuro): normal cognition Gait exam (Neuro): Normal gait present Motor exam (neuro): 5/5 motor strength present throughout Sensory Exam: No Sensory deficit (Neuro) Extrem Other: Bilateral lower extremities: +2/3 peripheral edema. Erythematous discoloration noted from the mid calf to the feet. Faint but palpable DP pulses noted. No wounds or ulcerations noted. CEAP: C - 4 E - primary A - superficial P - reflux General: Yes normal to inspection, Yes full ROM, Yes capillary refill normal and Yes normal gait Assessment & Plan Assessment & Plan (1) Varicose veins of both lower extremities with inflammation: Code(s): I83.11 - Varicose veins of right lower extremity with inflammation; I83.12 - Varicose veins of left lower extremity with inflammation Category: Medical Plan: Urvashi is presenting today on a referral from pain mgte for ongoing and worsening bilateral lower extremity swelling and pain. In short, the patient has evidence of venous insufficiency. I have discussed the pathophysiology with the patient. In addition I have provided informational material regarding venous disease to the patient. We have discussed conservative measures including compression, elevation, and exercise. We were unable to give her a handout; we only have it in Latvian. I did discuss with her the importance of trying to wear the compression socks, even it is only for a couple hours a day. I have taken the liberty of ordering venous insufficiency testing with the patient. They will follow up with me after testing. The patient had an opportunity to ask questions regarding the treatment plan. All questions were answered. Imaging studies, laboratory studies and physical exam results were discussed and reviewed in detail. No major barriers to understanding were identified. The patient expressed understanding and agreement with the above treatment plan. The patient is aware they should contact our office by phone for worsening of the current condition or the appearance of new symptoms. Thank you for allowing me to participate in the vascular care of this patient. If you have any questions or concerns regarding the treatment for the above condition please do not hesitate to contact me. The office telephone contact is [phone]. This note is constructed using voice recognition software. While every effort has been made to ensure accuracy, theater company producer errors may have been included. Thank you for allowing me to participate in the care of your patient. Yours sincerely, LJ Rea Orders: Orders US venous duplex LE BI 1 Week I83.11 - Varicose veins of right lower extremity with inflammation, I83.12 - Varicose veins of left lower extremity with inflammation Coding Level of Care Code New Pt Level 4 (77905) Diagnoses Varicose veins of both lower extremities with inflammation I83.11; I83.12
--- OUTSIDE RECORDS SUMMARY | 2025-01-18 16:09 | XMS_ITS | Continuity of Care Document ---
Author Organization [employer] e Address [facility] [address] [place] [phone] Phone Care Team Providers Care Web User Experience Strategist Name Role Phone Jonna Garcia OD Unavailable [...] INDEX DOCD MED LIST DOCD IN [facility] OFFICE/OUTPATIENT VISIT, EST TOBACCO NON-USER SYST BP LT 130 MM HG Sys bp less 140 DIAST BP < 80 MM HG Vela bp less 90 DSCHRG MED/CURRENT MED MERGE WEIGHT RECORDED BODY MASS INDEX DOCD MED LIST DOCD IN [facility] OFFICE/OUTPATIENT VISIT, NEW OFFICE/OUTPATIENT VISIT, EST URINALYSIS [...] Diagnoses Date Provider Providers Copied on Encounter [facility], [address] [place] [address], [id number], [place] tel:[phone] [facility] 4m MED ck. (chief complaint) Combined forms of age-related cataract, bilateralPeri pheral pterygium, progressive, bilateral 5 Garciaigor Coyle. [address], [address], [place], [place], [id number], [place]. tel:[phone] OFFICE/OUTPA TIENT VISIT, [facility], [address] [place] [address], [id number], [place] tel:[phone] [facility] Medication Review/Polyph armacy (chief complaint)hyp ertension (chief complaint) Body mass index (BMI) 37.0-37.9, adultDietary counseling and surveillanceE ssential (primary) hypertensionP rediabetesHyp erlipidemia, unspecified hyperlipidemi a type 5 Cooper Pappas. [address], [address], [place], [place], [id number], [place]. tel:[phone] [facility], [address] [place] [address], [id number], [place] tel:[phone] [facility] x blurry va (chief complaint) Combined forms of age-related cataract, bilateral 5 Garcia Jonna. [address], [address], [place], [place], [id number], [place]. tel:[phone] [facility], [address] [place] [address], [id number], [place] tel:[phone] [facility] No Information 3 Lucas Montalvo. [address], [place], [place], [id number], [place]. tel:[phone] OFFICE/OUTPA TIENT VISIT, [facility], [address] [place] [address], [id number], [place] tel:[phone] [facility] Growth (chief complaint)Whit wth (chief complaint) Peroneal ganglion cystChronic pain of right ankle 3 Michael Frankel. [address], [place], [place], [id number], [place]. tel:[phone] OFFICE/OUTPA TIENT VISIT, [facility], [address] [place] [address], [id number], [place] tel:[phone] [facility] Follow Up of Depression (chief complaint)Fol low Up of hypertension (chief complaint) Body mass index (BMI) 35.0-35.9, adultDietary counseling and surveillanceE ssential hypertensionM oderate major depression 3 Lucas Montalvo. [address] [facility] [address], [place], [place], [id number], [place]. tel:[phone] [facility], [address] [place] [address], [id number], [place] tel:[phone] [facility] Vitamin D insufficiency 3 Lucas Montalvo. [address], [place], [id number], [place]. tel:[phone] OFFICE/OUTPA TIENT VISIT, [facility], [address] [place] [address], [id number], [place] tel:[phone] [facility] hypertension (chief complaint)dep ression (chief complaint) Body mass index (BMI) 34.0-34.9, adultDietary counseling and surveillanceM oderate major depressionEss ential hypertensionB reast cancer screening 3 Lucas Montalvo. [address], [place], [id number], [place]. tel:[phone] [facility], [address] [place] [address], [id number], [place] tel:[phone] [facility] Degenerative lumbar discRetrolist hesis of vertebrae 2 No Information OFFICE/OUTPA TIENT VISIT, [facility], [address] [place] [address], [id number], [place] tel:[phone] [facility] back pain (chief complaint) Body mass index (BMI) 35.0-35.9, adultChronic left-sided low back pain with left-sided sciatica 2 [employer]. [address]), [address], [id number], [place]. tel:[phone] OFFICE/OUTPA TIENT VISIT, [facility], [address] [place] [address], [id number], [place] tel:[phone] [facility] UTI (chief complaint) Body mass index (BMI) 35.0-35.9, adultCystitis Essential (primary) hypertension 2 [employer]. [address]), [facility] [address], [place], [id number], [place]. tel:[phone] OFFICE/OUTPA TIENT VISIT, [facility], [address] [place] [address], [id number], [place] tel:[phone] [facility] hypertension (chief complaint) Body mass index (BMI) 35.0-35.9, adultEssentia l (primary) hypertension 0 No Information OFFICE/OUTPA TIENT VISIT, [facility], [address] [place] [address], [id number], [place] tel:[phone] [facility] hypertension (chief complaint) Body mass index (BMI) 35.0-35.9, adultHyperlip idemia, unspecified hyperlipidemi a typeEssential (primary) hypertension 9 No Information OFFICE/OUTPA TIENT VISIT, [facility], [address] [place] [address], [id number], [place] tel:[phone] [facility] hypertension (chief complaint)ER Follow Up (chief complaint)Add itional Information (chief complaint) Body mass index (BMI) 35.0-35.9, adultEssentia l (primary) hypertensionI ntermittent palpitations 9 No Information [facility], [address] [place] [address], [id number], [place] tel:[phone] [facility] Abnormal mammogram of right breast 9 No Information OFFICE/OUTPA TIENT VISIT, [facility], [address] [place] [address], [id number], [place] tel:[phone] [facility] Follow Up of Weight management (chief complaint)Add itional info (chief complaint) Body mass index (BMI) 35.0-35.9, adultHyperlip idemia, unspecified hyperlipidemi a typeObesity (BMI 30-39.9) Oct-0 9 No Information OFFICE/OUTPA TIENT VISIT, [facility], [address] [place] [address], [id number], [place] tel:[phone] [facility] annual exam (chief complaint) Body mass index (BMI) 35.0-35.9, adultEncntr for transportation engineering technician exam (general) (routine) w/o abn findingsCervi hannah cancer screeningBreutah state hospital cancer screeningVagi nal discharge Oct- 9 No Information OFFICE/OUTPA TIENT VISIT, [facility], [address] [place] [address], [id number], [place] tel:[phone] [facility] Ocular Discomfort (chief complaint) Peripheral pterygium, progressive, bilateral 9 Salomon Davian. [address] [place], [place], [id number], [place]. tel:[phone] OFFICE/OUTPA TIENT VISIT, [facility], [address] [place] [address], [id number], [place] tel:[phone] [facility] Obesity (chief complaint)Ski n lesion (chief complaint) Body mass index (BMI) 36.0-36.9, adultColon cancer screeningObes ity (BMI 30-39.9)Vener eal disease screeningNume zelalem skin molesConstipa tion, unspecified constipation typeEssential (primary) hypertension 0 9 No Information OFFICE/OUTPA TIENT VISIT, [facility], [address] [place] [address], [id number], [place] tel:[phone] [facility] Weight Management (chief complaint)Obe sity (chief complaint) PrediabetesBo dy mass index (BMI) 36.0-36.9, adultPterygiu m of both eyesObesity (BMI 30-39.9) 9 No Information OFFICE/OUTPA TIENT VISIT, [facility], [address] [place] [address], [id number], [place] tel:[phone] [facility] hypertension (chief complaint) Body mass index (BMI) 29.0-29.9, adultGERD with esophagitisEn counter for screening for nutritional disorderEssen tial (primary) hypertensionL eft anterior knee pain 8 No Information OFFICE/OUTPA TIENT VISIT, [facility], [address] [place] [address], [id number], [place] tel:[phone] [facility] Follow up on lab test(s) (chief complaint) Body mass index (BMI) 29.0-29.9, adultEssentia l (primary) hypertensionP rediabetesEle vated LDL cholesterol levelVitamin D deficiency 8 No Information OFFICE/OUTPA TIENT VISIT, [facility], [address] [place] [address], [id number], [place] tel:[phone] [facility] est care (chief complaint)hyp ertension (chief [...] name Insurance type Covered alliance party ID Margareth atkins(s) [facility] [id number] Social History Type Description Quantity Date Captured [...] Td vaccine. Due on 25 due Goal FIT-DNA. Due on due Goal [...] se screening. Due on due Goal Zoster vaccine. Due on due Goal Hep C Ab. Due on due Goal Sigmoidoscopy. Due on due Goal Tobacco Use Scre ening. Due on due Goal Sigmoidoscopy. Due [...] C scre ening. Due on due Goal Lifestyle education regardin g diet completed Goal Zoster vaccine. Due on due Goal [...] Goal Sigmoidoscopy. Due on due Goal Hepatitis C scre ening. Due on due Goal Colonoscopy. Due on due Goal FOBT. Due on [...] vaccine ( ). Due on due Goal Hep C Ab w/Rflx PCR Genotype,LIPA. Due on due Goal Lipid panel. Due [...] due Goal HPV. Due on due Goal Lifestyle education regardin g diet completed Goal Lifestyle education regardin g diet completed Goal Hep C Ab. Due on due Goal Td vaccine. Due on due Goal FIT. Due on due Goal CT-Colonography. Due on due Goal Vision Screen. Due on due Goal Sigmoidoscopy. Due on due Goal Tdap. Due on [...] education regardin g diet completed Goal Hepatitis C scre ening. Due on [...] vaccine ( 1st). Due on due Goal Influenza vaccin e. Due on due Goal FIT-DNA. Due on due Goal Sigmoidoscopy. Due on due Goal Unhealthy drug u se screening. Due on due Goal HPV. Due on due Goal Mammogram. Due on due Goal CT-Colonography. Due on due Goal Colonoscopy. Due on [...] nt education, guidance, and counseling completed Goal Influenza vaccin e. Due on due Goal FOBT. Due on due Goal Vision Screen. Due on due Goal Substance Abuse Screen. Due on due Goal Depression scree kathleen. Due on due Goal Td vaccine. Due on 20 due Goal Tdap. Due on due Goal Colonoscopy. Due on 020 due Goal Hepatitis Panel (incl Hep A Tot, Hep B Tot) w/Rflx. Due on due Goal Pap/HPV testing. Due on due Goal Mammogram. Due on 1 due Goal Sigmoidoscopy. Due on due Goal Hep C Ab. Due on due Goal Lifestyle education regardin g diet completed Goal Td vaccine. Due on 19 due [...] due Goal Colonoscopy. Due on due Goal Substance Abuse Screen. [...] Goal Mammogram. Due on 9 due Goal Lifestyle education regardin g diet completed Goal FOBT. Due on due Goal Sigmoidoscopy. [...] diet completed Goal Td vaccine. Due on 19 due Goal Pap/HPV testing. Due on due Goal Tdap. Due on due Goal Hepatitis Panel (incl Hep A Tot, Hep B Tot) w/Rflx. Due on due Goal Substance Abuse Screen. Due on due Goal FOBT. Due on due Goal Sigmoidoscopy. Due on due Goal Colonoscopy. Due on 019 due Goal Vision Screen. Due on due Goal Mammogram. Due [...] education regardin g diet completed Referral Ordered: /ALEX -Ophthalmology (related to Combined forms of age-related cataract, bilateral) ordered Referral Ordered: -Ophthalmology (related to Peripheral pterygium, progressive, bilateral) ordered Referral Referred To: Ordered: Referrals: Ophthalmology. . Location: [facility]. Consult ordered Referral Ordered: -Ophthalmology (related to [...] Order: Lab Order CBC (INC LUDES DIFF/PLT) ([id number]), Sent on: Sent Future Order: Lab Order COMPREHE NSIVE METABOLIC PANEL ([id number]), Sent on: Sent Future Order: Lab Order HEMOGLOB IN A1C ([id number]), Sent on: Sent Future Order: Lab Order LIPID OK OFILE ([id number]), Sent on: Sent Chalo-13-2025 Future Order: Lab Order TSH AND FREE T4 ([id number]), Sent on: Sent Future Order: Radiology Order Ma mmogram: Screening - Bilateral ([id number]), Ordered on: Ordered Future Order: Radiology Order X- ray L-Spine: 4-5 Views ([id number]), Added on: New Future Order: Lab Order CBC (INC LUDES DIFF/PLT) ([id number]), Sent on: Sent Future Order: Lab Order COMPREHE NSIVE METABOLIC PANEL ([id number]), Sent on: Sent Future Order: Lab Order LIPID PA SETH ([id number]), Sent on: Sent Future Order: Lab Order TSH W/RE FLEX TO FREE T4 ([id number]), Sent on: Sent Future Order: Lab Order VITAMIN D,25-OH,TOTAL,IA ([id number]), Sent on: Sent Future Order: Lab Order HEMOGLOB IN A1C ([id number]), Sent on: Sent Future Order: Lab Order MICROALB UMIN, RANDOM URINE (W/CREATININE) ([id number]), Sent on: Sent Future Order: Radiology Order Ul trasound, Breast, Complete ([id number]), Added on: New Future Order: Radiology Order Di gital Diagnostic Mammogram, Unilateral R ([id number]), Added on: New Future Order: Radiology Order Di gital Screening Mammogram, Bilateral ([id number]), Added on: New Future Order: Lab Order FECAL GL OBIN BY IMMUNOCHEMISTRY ([id number]), Ordered on: Ordered History Of Present Illness Encounter Date Complaint History Of Prese nt Illness 4m MED ck. Patient now has insurance to be scheduled for cat pre op at [facility], appointment was scheduled as a med ck [...] years ago. She was being seen in [place] for HTN and getting her medication there. [...] some weight recently. No family Hx of SC's or strokes, no heart problems. No family [...] ankle.Patient brought an Ultrasound report done in [place] on 2021.Patient complains the growth on her [...] due to not having insurance.Patient going to [place] for two months. hypertension Risk factors inc [...] disturbances and vomiting. Additional Information Seen at [facility] on 12/02/18 for near syncope episode lasting [...] that [place] prescribed [place] she has not been taking medication for [...] as a psychiatrist, psychologist, nurse, or social services specialist)--DeclinedSee someone right away if you want to [...] as a psychiatrist, psychologist, nurse, or social services specialist)--Referred.See someone right away if you want to [...] hypertension Giving encouragement to exercise Related to Dietary counseling and surveillance Lifestyle education regarding di et Related to Dietary counseling and surveillance Giving encouragement to exercise Related to Body mass index [BMI] 34.0-34.9, adult Lifestyle education regarding di et Related to Body mass index [BMI] 34.0-34.9, adult Rx: gabapentin. Disc ussed sedation precautions with [...] or as needed. 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 Instructed NSAIDs are not indicated for technician terminal and repeater use. Instructed that this medication should not [...]
--- OUTSIDE RECORDS SUMMARY | 2025-01-18 16:09 | XMS_ITS | Clinical Summary ---
Author Organization [employer] Address [address] [facility] 7t [place] [address] Care Team Providers Care Regulatory Compliance Coordinator Name Role Phone Unavailable Primary Care Provider [...] Active beta carotene (vitamin A) 3 MG (70210 UT) capsule TOME 2 C PSULAS POR [...] Description 06/21/2025 3:00 PM EDT Office Visit [facility] [address] [place] [address] Akilah Shaikh Health Maintenance Due Date Last Done Comments CT Colonography 1964 Colonoscopy 1964 Colorectal Cancer Screening 1964 Depression Screening 1964 FIT DNA/Cologuard 1964 FIT 1964 FOBT 1964 HIV Screening 1964 Lipid Panel 1964 SDOH Screening 1964 Sigmoidoscopy 1964 Disability Screening 1964 Alcohol/Substance Use Screening 1976 Hepatitis C [...] Most Recently Relevant to Health Maintenance Insurance [facility] MEDICAID STAND ADULT
== END 2025-01-18 15:34 | disposition home or self-care (01) ==
LOC: HO.HVS 15:02
PROVIDERS: PCP Internal Medicine; Visit Provider Physician Assistant Surgical
DX: I83.11 Varicose veins of right lower extremity with inflammation (principal); I83.12 Varicose veins of left lower extremity with inflammation
CPT/HCPCS: 99204

== ENCOUNTER → 2025-01-18 15:01 | Outpatient (BNVA) | payer OTHER, SELFPAY | PROVIDERS: PCP Internal Medicine; Visit Provider Physician Assistant Surgical | DX: I83.11 Varicose veins of right lower extremity with inflammation (principal); I83.12 Varicose veins of left lower extremity with inflammation | CPT/HCPCS: 99202 ==

== ENCOUNTER 2025-01-31 08:10 | Outpatient (REF) | payer OTHER, SELFPAY ==
--- NOTE | ~2025-01-31 | US_ITS ---
EXAMINATION: US LOWER EXTREMITY VENOUS (REFLUX EXAM), BILATERAL CLINICAL INFORMATION: Varicose veins of the right lower extremity with inflammation COMPARISON: None. TECHNIQUE: Color flow triplex imaging and compression Doppler was performed to evaluate both the deep and the superficial systems bilaterally. To evaluate the superficial system, the examination was performed in the upright position. Color-flow Doppler ultrasound and compression ultrasound were utilized. In addition, maneuvers were utilized to demonstrate reflux. FINDINGS: 1. DEEP VENOUS ULTRASOUND OF THE RIGHT LOWER EXTREMITY: Common Femoral Vein: Compressible, normal respiratory variation and augmented flow. Femoral Vein: Compressible, normal color flow and augmentation. Popliteal Vein: Compressible, normal augmentation. Deep Reflux: There is no evidence of reflux in the deep system in either the common femoral vein, superficial femoral or the popliteal vein. There is no evidence of a Newton's cyst. 2. SUPERFICIAL ULTRASOUND WITH DOPPLER OF RIGHT LOWER EXTREMITY: GREAT SAPHENOUS VEIN: Saphenofemoral Junction: 0.5 cm; Reflux: 0 ms Proximal Thigh: 0.4 cm; Reflux: 0 ms Mid Thigh: 0.3 cm; Reflux: 0 ms Distal Thigh: 0.3 cm; Reflux: 0 ms At Knee: 0.3 cm; Reflux: 0 ms Proximal Calf: 0.3 cm; Reflux: 0 ms Mid Calf: 0.3 cm; Reflux: 0 ms Distal Calf: 0.3 cm; Reflux: 0 ms Lateral accessory GREAT SAPHENOUS VEIN: Saphenofemoral Junction: 0.5 cm; Reflux: 0 ms Mid Thigh: 0.2 cm; Reflux: 0 ms DUPLICATED MEDIAL GREAT SAPHENOUS VEIN: Diameter: None imaged Reflux: NA DUPLICATED LATERAL GREAT SAPHENOUS VEIN: Diameter: None imaged Reflux: NA SMALL SAPHENOUS VEIN: Saphenopopliteal Junction: 0.2 cm; Reflux: 0 ms Mid calf: 0.2 cm; Reflux: 0 ms Distal: 0.2 cm; Reflux: 0 ms VEIN OF GIACOMINI: Size: NA Reflux: NA PERFORATORS: Location: Proximal thigh Size: 0.3 cm Reflux: 0 ms VARICOSITIES: All < 3mm 3. DEEP VENOUS ULTRASOUND OF THE LEFT LOWER EXTREMITY: Common Femoral Vein: Compressible, normal respiratory variation and augmented flow. Femoral Vein: Compressible, normal color flow and augmentation. Popliteal Vein: Compressible, normal augmentation. Deep Reflux: There is no evidence of reflux in the deep system in either the common femoral vein, superficial femoral or the popliteal vein. 4. SUPERFICIAL ULTRASOUND WITH DOPPLER OF LEFT LOWER EXTREMITY: GREAT SAPHENOUS VEIN: Saphenofemoral Junction: 0.9 cm; Reflux: 0 ms Proximal Thigh: 0.4 cm; Reflux: 0 ms Mid Thigh: 0.4 cm; Reflux: 0 ms Distal Thigh: 0.3 cm; Reflux: 0 ms At Knee: 0.4 cm; Reflux: 0 ms Proximal Calf: 0.2 cm; Reflux: 0 ms Mid Calf: 0.3 cm; Reflux: 0 ms Distal Calf: 0.3 cm; Reflux: 0 ms Lateral accessory GREAT SAPHENOUS VEIN: Saphenofemoral Junction: 0.2 cm; Reflux: 0 ms Mid Thigh: 0.3 cm; Reflux: 0 ms Medial accessory GREAT SAPHENOUS VEIN: None imaged DUPLICATED MEDIAL GREAT SAPHENOUS VEIN: Diameter: None imaged Reflux: NA DUPLICATED LATERAL GREAT SAPHENOUS VEIN: Diameter: None imaged. Reflux: NA SMALL SAPHENOUS VEIN: Saphenopopliteal Junction: 0.2 cm; Reflux: 0 ms Proximal: 0.3 cm; Reflux: 0 ms Distal: 0.3 cm; Reflux: 0 ms VEIN OF GIACOMINI: Size: 0.3 Reflux: 0 PERFORATORS: Location: Small saphenous vein, mid Size: 0.3 cm Reflux: 0 ms Location: Greater saphenous vein, mid-thigh Size: 0.2 cm Reflux: 0 ms Location: Greater saphenous vein, proximal calf Size: 0.2 cm Reflux: 0 ms Location: Greater saphenous vein, distal calf, perforators varicosities Size: 0.4 cm Reflux: 0 ms VARICOSITIES: Location: Greater saphenous vein, distal calf Size: 0.3 cm Reflux: 0 ms Numerous varicosities < 3mm US/US venous duplex LE BI IMPRESSION: Right: No venous reflux is demonstrated. Left: No venous reflux is demonstrated. Electronically signed by: Jimenez Reinoso MD 02/03/2025 11:21 AM EDT
--- OUTSIDE RECORDS SUMMARY | 2025-01-31 08:16 | XMS_ITS | Continuity of Care Document ---
Author Organization [employer] Address [address] [place] [address] Phone Care Team Providers Care Per Diem Rn Name Role Phone Jonna Garcia OD Unavailable [...] MASS INDEX DOCD MED LIST DOCD IN [facility] OFFICE/OUTPATIENT VISIT, EST TOBACCO NON-USER SYST BP LT 130 MM HG Sys bp less 140 DIAST BP < 80 MM HG Vela bp less 90 DSCHRG MED/CURRENT MED MERGE WEIGHT RECORDED BODY MASS INDEX DOCD MED LIST DOCD IN [facility] OFFICE/OUTPATIENT VISIT, NEW OFFICE/OUTPATIENT VISIT, EST [...] Diagnoses Date Provider Providers Copied on Encounter [facility], [address] [place] [address], [id number], [place] tel:[phone] [facility] [address] 4m MED ck. (chief complaint) Combined forms of age-related cataract, bilateralPeri pheral pterygium, progressive, bilateral 5 Garciaigor Coyle. [address], [address], [place], [place], [id number], [place]. tel:[phone] OFFICE/OUTPA TIENT VISIT, [facility], [address] [place] [address], [id number], [place] tel:[phone] [facility] [address] Medication Review/Polyph armacy (chief complaint)hyp ertension (chief complaint) Body mass index (BMI) 37.0-37.9, adultDietary counseling and surveillanceE ssential (primary) hypertensionP rediabetesHyp erlipidemia, unspecified hyperlipidemi a type 5 Cooper Pappas. [address], [address], [place], [place], [id number], [place]. tel:[phone] [facility], [address] [place] [address], [id number], [place] tel:[phone] [facility] [address] x blurry va (chief complaint) Combined forms of age-related cataract, bilateral 5 Garcia Jonna. [address], [address], [place], [place], [id number], [place]. tel:[phone] [facility], [address] [place] [address], [id number], [place] tel:[phone] [facility] [address] No Information 3 Lucas Montalvo. [address], [place], [place], [id number], [place]. tel:[phone] OFFICE/OUTPA TIENT VISIT, [facility], [address] [place] [address], [id number], [place] tel:[phone] [facility] [address] Growth (chief complaint)Whit wth (chief complaint) Peroneal ganglion cystChronic pain of right ankle 3 Michael Frankel. [address], [place], [place], [id number], [place]. tel:[phone] OFFICE/OUTPA TIENT VISIT, [facility], [address] [place] [address], [id number], [place] tel:[phone] [facility] [address] Follow Up of Depression (chief complaint)Fol low Up of hypertension (chief complaint) Body mass index (BMI) 35.0-35.9, adultDietary counseling and surveillanceE ssential hypertensionM oderate major depression 3 Lucas Montalvo. [address], [place], [place], [id number], [place]. tel:[phone] [facility], [address] [place] [address], [id number], [place] tel:[phone] [facility] [address] Vitamin D insufficiency 3 Lucas Montalvo. [address], [place], [id number], [place]. tel:[phone] OFFICE/OUTPA TIENT VISIT, [facility], [address] [place] [address], [id number], [place] tel:[phone] [facility] [address] hypertension (chief complaint)dep ression (chief complaint) Body mass index (BMI) 34.0-34.9, adultDietary counseling and surveillanceM oderate major depressionEss ential hypertensionB reast cancer screening 3 Lucas Montalvo. [address], [place], [id number], [place]. tel:[phone] [facility], [address] [place] [address], [id number], [place] tel:[phone] [facility] [address] Degenerative lumbar discRetrolist hesis of vertebrae 2 No Information OFFICE/OUTPA TIENT VISIT, [facility], [address] [place] [address], [id number], [place] tel:[phone] [facility] [address] back pain (chief complaint) Body mass index (BMI) 35.0-35.9, adultChronic left-sided low back pain with left-sided sciatica 2 [employer]. [address], [address], [id number], [place]. tel:[phone] OFFICE/OUTPA TIENT VISIT, [facility], [address] [place] [address], [id number], [place] tel:[phone] [facility] [address] UTI (chief complaint) Body mass index (BMI) 35.0-35.9, adultCystitis Essential (primary) hypertension 2 [employer]. [address], [facility] [address], [place], [id number], [place]. tel:[phone] OFFICE/OUTPA TIENT VISIT, [facility], [address] [place] [address], [id number], [place] tel:[phone] [facility] [address] hypertension (chief complaint) Body mass index (BMI) 35.0-35.9, adultEssentia l (primary) hypertension 0 No Information OFFICE/OUTPA TIENT VISIT, [facility], [address] [place] [address], [id number], [place] tel:[phone] [facility] [address] hypertension (chief complaint) Body mass index (BMI) 35.0-35.9, adultHyperlip idemia, unspecified hyperlipidemi a typeEssential (primary) hypertension 9 No Information OFFICE/OUTPA TIENT VISIT, [facility], [address] [place] [address], [id number], [place] tel:[phone] [facility] [address] hypertension (chief complaint)ER Follow Up (chief complaint)Add itional Information (chief complaint) Body mass index (BMI) 35.0-35.9, adultEssentia l (primary) hypertensionI ntermittent palpitations 9 No Information [facility], [address] [place] [address], [id number], [place] tel:[phone] [facility] [address] Abnormal mammogram of right breast 9 No Information OFFICE/OUTPA TIENT VISIT, [facility], [address] [place] [address], [id number], [place] tel:[phone] [facility] [address] Follow Up of Weight management (chief complaint)Add itional info (chief complaint) Body mass index (BMI) 35.0-35.9, adultHyperlip idemia, unspecified hyperlipidemi a typeObesity (BMI 30-39.9) Oct-0 9 No Information OFFICE/OUTPA TIENT VISIT, [facility], [address] [place] [address], [id number], [place] tel:[phone] [facility] annual exam (chief complaint) Body mass index (BMI) 35.0-35.9, adultEncntr for research chief engineer exam (general) (routine) w/o abn findingsCervi hannah cancer screeningBrebeaver valley hospital cancer screeningVagi nal discharge Oct- 9 No Information OFFICE/OUTPA TIENT VISIT, [facility], [address] [place] [address], [id number], [place] tel:[phone] [facility] [address] Ocular Discomfort (chief complaint) Peripheral pterygium, progressive, bilateral 9 Salomon Davian. [address] [place], [place], [id number], [place]. tel:[phone] OFFICE/OUTPA TIENT VISIT, [facility], [address] [place] [address], [id number], [place] tel:[phone] [facility] [address] Obesity (chief complaint)Ski n lesion (chief complaint) Body mass index (BMI) 36.0-36.9, adultColon cancer screeningObes ity (BMI 30-39.9)Vener eal disease screeningNume zelalem skin molesConstipa tion, unspecified constipation typeEssential (primary) hypertension 0 9 No Information OFFICE/OUTPA TIENT VISIT, [facility], [address] [place] [address], [id number], [place] tel:[phone] [facility] [address] Weight Management (chief complaint)Obe sity (chief complaint) PrediabetesBo dy mass index (BMI) 36.0-36.9, adultPterygiu m of both eyesObesity (BMI 30-39.9) 9 No Information OFFICE/OUTPA TIENT VISIT, [facility], [address] [place] [address], [id number], [place] tel:[phone] [facility] hypertension (chief complaint) Body mass index (BMI) 29.0-29.9, adultGERD with esophagitisEn counter for screening for nutritional disorderEssen tial (primary) hypertensionL eft anterior knee pain 8 No Information OFFICE/OUTPA TIENT VISIT, [facility], [address] [place] [address], [id number], [place] tel:[phone] [facility] Follow up on lab test(s) (chief complaint) Body mass index (BMI) 29.0-29.9, adultEssentia l (primary) hypertensionP rediabetesEle vated LDL cholesterol levelVitamin D deficiency 8 No Information OFFICE/OUTPA TIENT VISIT, [facility], [address] [place] [address], [id number], [place] tel:[phone] [facility] est care (chief complaint)hyp ertension (chief [...] hypertension Payers Payer name Insurance type Covered green party ID Margareth atkins(s) [facility] [id number] Social History Type Description Quantity Date Captured [...] Of Treatment Date Type Action Status Goal Hepatitis Panel (incl Hep A Tot, Hep B Tot) w/Rflx. Due on due Goal Influenza vaccin e. Due on due Goal Lipid panel. Due on 028 due Goal Tdap. Due on due Goal CT-Colonography. Due on due Goal Zoster vaccine ( ). Due on due Goal FOBT. Due on due Goal Td vaccine. Due on 25 due Goal FIT. Due on due Goal Vision Screen. Due on due Goal Substance Abuse Screen. Due on due Goal FIT-DNA. Due on due Goal Colonoscopy. Due on 020 due Goal Depression scree kathleen. Due on due Goal Hepatitis C scre ening. Due on due Goal Hep C Ab w/Rflx PCR Genotype,LIPA. Due on due Goal Zoster vaccine. Due [...] RNA, Quant, RT-PCR. Due on due Goal Colonoscopy. Due on [...] B Tot) w/Rflx. Due on due Goal CT-Colonography. Due on due Goal Hep C Ab. Due on due Goal Hep C Ab w/Rflx PCR Genotype,LIPA. Due on due Goal Influenza vaccin e. Due on due Goal Lipid panel. Due on due Goal Td vaccine. Due on due Goal FOBT. Due on due Goal Vision Screen. Due on due Goal FIT. Due on due Goal Lipid panel. Due on due Goal CT-Colonography. Due on due Goal Colonoscopy. Due on due Goal FIT-DNA. Due on due Goal Unhealthy drug u se screening. Due on due Goal Tdap. Due on due Goal Influenza vaccin e. Due on due Goal HPV. Due on due Goal Hepatitis Panel (incl [...] w/Rflx PCR Genotype,LIPA. Due on due Goal Vision Screen. Due [...] completed Goal CT-Colonography. Due on due Goal Vision [...] Colonoscopy. Due on 022 due Goal Hepatitis C scre ening. Due [...] w/Rflx PCR Genotype,LIPA. Due on due Goal FIT-DNA. Due on [...] Depression scree kathleen. Due on due Goal FIT. Due on [...] vaccine ( 1st). Due on due Goal Mammogram. Due on [...] due Goal CT-Colonography. Due on due Goal Dietary manageme nt education, guidance, and counseling completed Goal Colonoscopy. Due on due Goal Hepatitis Panel (incl Hep A Tot, Hep B Tot) w/Rflx. Due on due Goal Pap/HPV testing. Due on due Goal Influenza vaccin e. Due on due Goal Substance Abuse Screen. Due on due Goal Depression scree kathleen. Due on due Goal Td vaccine. Due on 20 due Goal FOBT. Due on due Goal Vision Screen. Due on due Goal Tdap. Due on due Goal Mammogram. Due on 1 due Goal Sigmoidoscopy. Due on due Goal Hep C Ab. Due on due Goal Lifestyle education regardin g diet completed Goal FOBT. Due on due Goal Td vaccine. Due on 19 due Goal Depression scree kathleen. Due on due Goal Vision Screen. Due on due Goal Hep C [...] Goal Mammogram. Due on 9 due Goal Depression scree kathleen. Due on [...] Goal Mammogram. Due on 9 due Goal HIV 1/0/2 Ag/Ab with Reflex. Due on due Goal Colonoscopy. Due on 019 due Goal Influenza vaccin e. Due on [...] Referred To: Ordered: Referrals: Ophthalmology. . Location: [facility]. Consult ordered Referral Ordered: -Ophthalmology (related [...] Order: Lab Order CBC (INC LUDES DIFF/PLT) ([id number]), Sent on: Sent Future Order: Lab Order COMPREHE NSIVE METABOLIC PANEL ([id number]), Sent on: Sent Future Order: Lab Order HEMOGLOB IN A1C ([id number]), Sent on: Sent Future Order: Lab Order LIPID NM OFILE ([id number]), Sent on: Sent Chalo-13-2025 Future Order: Lab Order TSH AND FREE T4 ([id number]), Sent on: Sent Future Order: Radiology Order Ma mmogram: Screening - Bilateral ([id number]), Ordered on: Ordered Future Order: Radiology Order X- ray L-Spine: 4-5 Views ([id number]), Added on: New Future Order: Lab Order CBC (INC LUDES DIFF/PLT) ([id number]), Sent on: Sent Future Order: Lab Order COMPREHE NSIVE METABOLIC PANEL ([id number]), Sent on: Sent Future Order: Lab Order LIPID PA SETH ([id number]), Sent on: Sent Future Order: Lab Order TSH W/RE FLEX TO FREE T4 ([id number]), Sent on: Sent Future Order: Lab Order VITAMIN D,25-OH,TOTAL,IA ([id number]), Sent on: Sent Future Order: Lab Order HEMOGLOB IN A1C ([id number]), Sent on: Sent Future Order: Lab Order MICROALB UMIN, RANDOM URINE (W/CREATININE) ([id number]), Sent on: Sent Future Order: Radiology Order Ul trasound, Breast, Complete ([id number]), Added on: New Future Order: Radiology Order Di gital Diagnostic Mammogram, Unilateral R ([id number]), Added on: New Future Order: Radiology Order Di gital Screening Mammogram, Bilateral ([id number]), Added on: New Future Order: Lab Order FECAL GL OBIN BY IMMUNOCHEMISTRY ([id number]), Ordered on: Ordered History Of Present Illness Encounter Date Complaint History Of Prese nt Illness 4m MED ck. Patient now has insurance to be scheduled for cat pre op at [facility], appointment was scheduled as a med [...] years ago. She was being seen in [place] for HTN and getting her medication there. [...] some weight recently. No family Hx of IN's or strokes, no heart problems. No family [...] ankle.Patient brought an Ultrasound report done in [place] on 2021.Patient complains the growth on her [...] due to not having insurance.Patient going to [place] for two months. hypertension Risk factors inc [...] disturbances and vomiting. Additional Information Seen at [facility] on 12/02/18 for near syncope episode lasting [...] that was [place] she has not been taking medication for [...] Instruction Additional Infor mation Impression/Plan Related to Perip heral pterygium, progressive, bilateral Impression/Plan Related to Combi ramin forms of age-related cataract, bilateral Will check labs and call pt with results. Related to Hyperlipidemia, unspecified hyperlipidemia type Will check labs and call pt with results. Related to Prediabetes Discussed importance of taking medication as Rx'd. [...] (such as a psychiatrist, psychologist, nurse, or child welfare social worker)--DeclinedSee someone right away if you want to [...] (such as a psychiatrist, psychologist, nurse, or child welfare social worker)--Referred.See someone right away if you want to [...] months. Related to Hyperlipidemia, unspecified hyperlipidemia type Continue blood press ure medication as directed.Avoid [...] or as needed. 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 Instructed NSAIDs are not indicated for intermediate manager use. Instructed that this medication should not be taken with any other NSAID medications. Instructed to take with food. If s/s of bleeding, diarrhea, n/v, abdominal pain, or urinary problems occur stop medication immediately and call clinic. Patient verbalizes understanding of all instructions. Related to TMJ click will recheck when sh e returns for lab f/u and assess if need to restart BP medication Related to Essential (primary) hypertension Giving encouragement [...]
== END 2025-01-31 08:11 | disposition home or self-care (01) ==
LOC: HO.US 08:10
PROVIDERS: PCP Internal Medicine; Visit Provider Physician Assistant Surgical
DX: I83.11 Varicose veins of right lower extremity with inflammation (principal); I83.12 Varicose veins of left lower extremity with inflammation
CPT/HCPCS: 93970

== ENCOUNTER → 2025-01-31 08:14 | Outpatient (BNV) | payer OTHER, SELFPAY | PROVIDERS: PCP Internal Medicine; Visit Provider Radiology Diagnostic Radiology | DX: I83.11 Varicose veins of right lower extremity with inflammation (principal) | CPT/HCPCS: 93970 ==

== ENCOUNTER 2025-02-15 09:18 | Outpatient (AMB) | payer OTHER, SELFPAY ==
--- NOTE | 2025-02-15 09:30 | A.OFFVIS_ITS ---
Intake Visit Reasons: follow up s/p US 01/31/25 Intake Note: Patient presents for US follow up. No complaints. Accompanied by: Self / Same As Patient Allergies adhesive tape Allergy (Intermediate, Verified 02/15/25 09:32) skin breakdown HPI HPI follow up s/p US 01/31/25: Details: Urvashi is presenting today on a follow up to US, performed on 01/31. We utilized Ena as an spanish interpreter/translator. She continues to endorse bilateral lower extremity pain, particularly around her knees, and lower extremity swelling. She states she does get Cortisone injections in her knees, which help a little. She has tried compression socks in the past but it is difficult to get them on. She states elevating her legs causes increased pain in the knees. She is followed by Cardiology, whom is hesitant to increase her diuretics due to cardiac issues. She has no new concerns today. [facility] Medical History Pain at surgical incision Urinary incontinence in female Stress incontinence Lumbar back pain with radiculopathy affecting left lower extremity GERD (gastroesophageal reflux disease) HTN (hypertension) Complex regional pain syndrome i of left lower limb Chronic pain syndrome Cardiac pacemaker in situ Cardiomyopathy Second degree AV block Allergies Osteoarthritis of left knee Spondylosis of lumbosacral spine with radiculopathy Back pain Surgical History History of hernia repair (~11/12/23) H/O gastric bypass Gastric bypass status for obesity Hx of cholecystectomy Hx of breast reduction, elective Hx of colonoscopy History of esophagogastroduodenoscopy (EGD) History of permanent cardiac pacemaker placement Family History Father Asthma Mother HTN (hypertension) Alzheimer disease Brother Cardiac pacemaker Sister Colon cancer Metastatic cancer Social History Household Members: None Housing: Apartment Do you presently have visiting nurse or other home services: Yes ([employer]IC[employer]) Alcohol intake: former Comment: counts correct Patient Tobacco Use Status: Former Tobacco user Cigarette Packs Per Day: 0.5 e-Cigarette/Vaping Use: Never Used Advance Directives Date on File: 11/12/23 service: No 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al status: unemployed and disabled 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 Cognitive needs: No Hearing needs: No Vision needs: Yes Review of Systems Const Reports as per HPI and Denies weakness ENT Reports Normal hearing present and Denies dizziness Card Reports as per HPI, Denies chest pain, Denies chest pain at rest, Denies chest pain with activity, Denies dyspnea and Denies dyspnea on exertion Resp Reports as per HPI, Denies cough, Denies dyspnea and Denies dyspnea on exertion GI Reports as per HPI, Denies abdominal pain, Denies nausea and Denies vomiting Musc Denies numbness Skin/Breast Reports as per HPI, Denies erythema and Denies wounds Neuro Reports Normal hearing present, Denies dizziness, Denies numbness, Denies Sensory deficit (Neuro) and Denies weakness Psych Reports no additional complaints Endo Reports no additional complaints Physical Exam Const General: healthy appearing and no acute distress Orientation/consciousness: patient oriented x3 HEENT Head: Yes normal to inspection Ears: hearing grossly normal bilaterally Mouth: Normal oral and palatal mucosa present Resp Effort & Inspection: normal respiratory effort and able to speak in complete sentences Auscultation: clear to auscultation bilaterally Cardio Jugular venous distension: no JVD Rate: regular rate Rhythm: regular rhythm Heart sounds: S1 normal heart sound present and S2 normal heart sound present Bruits: no abdominal aortic bruits, no carotid bruits, no femoral bruits and no renal bruits Peripheral pulses: Peripheral pulses 2+ throughout GI Inspection: Yes normal to inspection Palpation (GI): No Abdominal aortic bruit present Skin General skin exam: no rashes or lesions noted Wounds: no wounds Hair: normal Neuro General: patient oriented x3 Cranial nerves: Yes Normal hearing present Cognition (Neuro): normal cognition Gait exam (Neuro): Normal gait present Motor exam (neuro): 5/5 motor strength present throughout Sensory Exam: No Sensory deficit (Neuro) Extrem Other: Bilateral lower extremities: +2 peripheral edema. Erythematous discoloration noted from the mid calf to the feet. Faint but palpable DP pulses noted. No wounds or ulcerations noted. General: Yes normal to inspection, Yes full ROM, Yes capillary refill normal and Yes normal gait Results Reviewed Results Reviewed: Brief summary of venous insufficiency testing is as follows: right great saphenous vein: negative right small saphenous vein: negative right accessory vein: none present left great saphenous vein: negative left small saphenous vein: negative left accessory vein: none present Please note there is no evidence of any venous aneurysms or significant tortuosity Assessment & Plan Assessment & Plan (1) Varicose veins of both lower extremities with inflammation: Code(s): I83.11 - Varicose veins of right lower extremity with inflammation; I83.12 - Varicose veins of left lower extremity with inflammation Category: Medical Plan Urvashi is presenting today on a follow up to US, performed on 01/31. There was no insufficiency found on US. We discussed that the swelling and pain is not due to a vascular issue. We discussed to follow up with her PCP and Cardiology for further evaluation for the swelling and pain. We discussed to try conservative measures, including compression socks, elevation (using a pillow under the knees could help), and physical activity. We discussed the importance of a healthy, well balanced diet. We discussed that if she had any vascular concerns in the future, she can reach out to us at any point. Thank you for allowing us to participate in the patient's care. If there are any questions or concerns, please do not hesitate to reach out to us. Coding Level of Care Code Est Pt Level 4 (85249) Diagnoses Varicose veins of both lower extremities with inflammation I83.11; I83.12 Comment review of US
--- OUTSIDE RECORDS SUMMARY | 2025-02-15 09:59 | XMS_ITS | Continuity of Care Document ---
Author Organization [employer] Address [address] [place] [address] Phone Care Team Providers Care General House Worker Name Role Phone Elyse Christiansen Unavailable Unavailable [...] MASS INDEX DOCD MED LIST DOCD IN [facility] EYE EXAM & TREATMENT OFFICE/OUTPATIENT VISIT, NEW TOBACCO NON-USER SYST BP LT 130 MM HG Sys bp less 140 DIAST BP < 80 MM HG Vela bp less 90 WEIGHT RECORDED BODY MASS INDEX DOCD MED LIST DOCD IN [facility] OFFICE/OUTPATIENT VISIT, EST TOBACCO NON-USER SYST BP LT 130 MM HG Sys bp less 140 DIAST BP < 80 MM HG Vela bp less 90 DSCHRG MED/CURRENT MED MERGE WEIGHT RECORDED BODY MASS INDEX DOCD MED LIST DOCD IN [facility] OFFICE/OUTPATIENT VISIT, NEW OFFICE/OUTPATIENT VISIT, EST [...] Provider Providers Copied on Encounter [facility], [address] [place] [address] [address], [place], [id number], [place] tel:[phone] [facility] No Information 5 Cooper Pappas. [address], [address], [place], [place], [id number], [place]. tel:[phone] [facility], [address] [place] [address], [id number], [place] tel:[phone] [facility] 4m MED ck. (chief complaint) Combined forms of age-related cataract, bilateralPeri pheral pterygium, progressive, bilateral 5 Jose Coyle. [address], [address] [address], [place], [id number], [place]. tel:[phone] OFFICE/OUTPA TIENT VISIT, [facility], [address] [place] [address], [id number], [place] tel:[phone] [facility] Medication Review/Polyph armacy (chief complaint)hyp ertension (chief complaint) Body mass index (BMI) 37.0-37.9, adultDietary counseling and surveillanceE ssential (primary) hypertensionP rediabetesHyp erlipidemia, unspecified hyperlipidemi a type 5 Cooper Pappas. [address], [address], [place], [id number], [place]. tel:[phone] [facility], [address] [place] [address], [id number], [place] tel:[phone] [facility] x blurry va (chief complaint) Combined forms of age-related cataract, bilateral 5 Jose Coyle. [address], [address] [address], [place], [id number], [place]. tel:[phone] [facility], [address] [place] [address], [id number], [place] tel:[phone] [facility] No Information 3 Lucas Montalvo. [address], [place], [place], [id number], [place]. tel:[phone] OFFICE/OUTPA TIENT VISIT, [facility], [address] [place] [address], [id number], [place] tel:[phone] [facility] Growth (chief complaint)Whit wth (chief complaint) Peroneal ganglion cystChronic pain of right ankle 3 Michael Frankel. [address], [place], [id number], [place]. tel:[phone] OFFICE/OUTPA TIENT VISIT, [facility], [address] [place] [address], [id number], [place] tel:[phone] [facility] Follow Up of Depression (chief complaint)Fol low Up of hypertension (chief complaint) Body mass index (BMI) 35.0-35.9, adultDietary counseling and surveillanceE ssential hypertensionM oderate major depression 3 uLcas Montalvo. [address] [address], [place], [id number], [place]. tel:[phone] [facility], [address] [place] [address], [id number], [place] tel:[phone] [facility] Vitamin D insufficiency 3 Lucas Montalvo. [address], [place], [id number], [place]. tel:[phone] OFFICE/OUTPA TIENT VISIT, [facility], [address] [place] [address], [id number], [place] tel:[phone] [facility] hypertension (chief complaint)dep ression (chief complaint) Body mass index (BMI) 34.0-34.9, adultDietary counseling and surveillanceM oderate major depressionEss ential hypertensionB reast cancer screening 3 Lucas Montalvo. [address] [address], [place], [id number], [place]. tel:[phone] [facility], [address] [place] [address], [id number], [place] tel:[phone] [facility] Degenerative lumbar discRetrolist hesis of vertebrae 2 No Information OFFICE/OUTPA TIENT VISIT, [facility], [address] [place] [address], [id number], [place] tel:[phone] [facility] back pain (chief complaint) Body mass index (BMI) 35.0-35.9, adultChronic left-sided low back pain with left-sided sciatica 2 Eliza Fu. [address], [address], [place], [place], [id number], [place]. tel:[phone] OFFICE/OUTPA TIENT VISIT, [facility], [address] [place] [address], [id number], [place] tel:[phone] [facility] UTI (chief complaint) Body mass index (BMI) 35.0-35.9, adultCystitis Essential (primary) hypertension 2 Eliza Fu. [address], [address], [place], [place], [id number], [place]. tel:[phone] OFFICE/OUTPA TIENT VISIT, [facility], [address] [place] [address], [id number], [place] tel:[phone] [facility] hypertension (chief complaint) Body mass index (BMI) 35.0-35.9, adultEssentia l (primary) hypertension 0 No Information OFFICE/OUTPA TIENT VISIT, [facility], [address] [place] [address], [id number], [place] tel:[phone] [facility] hypertension (chief complaint) Body mass index (BMI) 35.0-35.9, adultHyperlip idemia, unspecified hyperlipidemi a typeEssential (primary) hypertension 9 No Information OFFICE/OUTPA TIENT VISIT, [facility], [address] [place] [address], [id number], [place] tel:[phone] [facility] hypertension (chief complaint)ER Follow Up (chief complaint)Add itional Information (chief complaint) Body mass index (BMI) 35.0-35.9, adultEssentia l (primary) hypertensionI ntermittent palpitations 9 No Information [facility], [address] [place] [address], [id number], [place] tel:[phone] [facility] Abnormal mammogram of right breast 9 No Information OFFICE/OUTPA TIENT VISIT, [facility], [address] [place] [address], [id number], [place] tel:[phone] [facility] Follow Up of Weight management (chief complaint)Add itional info (chief complaint) Body mass index (BMI) 35.0-35.9, adultHyperlip idemia, unspecified hyperlipidemi a typeObesity (BMI 30-39.9) Oct- 9 No Information OFFICE/OUTPA TIENT VISIT, [facility], [address] [place] [address], [id number], [place] tel:[phone] [facility] [place] exam (chief complaint) Body mass index (BMI) 35.0-35.9, adultEncntr for convention services director exam (general) (routine) w/o abn findingsCervi hannah cancer screeningBrea st cancer screeningVagi nal discharge 9 No Information OFFICE/OUTPA TIENT VISIT, [facility], [address] [place] [address], [id number], [place] tel:[phone] [facility] Ocular Discomfort (chief complaint) Peripheral pterygium, progressive, bilateral Oct- 9 Salomon Marcelo. [address], [place], [place], [id number], [place]. tel:[phone] OFFICE/OUTPA TIENT VISIT, [facility], [address] [place] [address], [id number], [place] tel:[phone] [facility] Obesity (chief complaint)Ski n lesion (chief complaint) Body mass index (BMI) 36.0-36.9, adultColon cancer screeningObes ity (BMI 30-39.9)Vener eal disease screeningNume zelalem skin molesConstipa tion, unspecified constipation typeEssential (primary) hypertension 9 No Information OFFICE/OUTPA TIENT VISIT, [facility], [address] [place] [address], [id number], [place] tel:[phone] [facility] Weight Management (chief complaint)Obe sity (chief complaint) PrediabetesBo dy mass index (BMI) 36.0-36.9, adultPterygiu m of both eyesObesity (BMI 30-39.9) 9 No Information OFFICE/OUTPA TIENT VISIT, [facility], [address] [place] [address], [id number], [place] tel:[phone] [facility] hypertension (chief complaint) Body mass index (BMI) 29.0-29.9, adultGERD with esophagitisEn counter for screening for nutritional disorderEssen tial (primary) hypertensionL eft anterior knee pain 8 No Information OFFICE/OUTPA TIENT VISIT, [facility], [address] [place] [address], [id number], [place] tel:[phone] [facility] Follow up on lab test(s) (chief complaint) Body mass index (BMI) 29.0-29.9, adultEssentia l (primary) hypertensionP rediabetesEle vated LDL cholesterol levelVitamin D deficiency 8 No Information OFFICE/OUTPA TIENT VISIT, [facility], [address] [place] [address], [id number], [place] tel:[phone] [facility] est care (chief complaint)hyp ertension (chief complaint)hyp [...] Insurance type Covered republican ID Authorniurka atkins(s) [facility] [id number] Social History Type Description Quantity Date Captured [...] panel. Due on 028 due Goal Hepatitis Panel (incl Hep A [...] Use Scre ening. Due on due Goal Zoster vaccine. [...] Td vaccine. Due on 25 due Goal Unhealthy drug u se screening. [...] Lipid panel. Due on 028 due Goal Tobacco Use Scre ening. Due on due Goal Unhealthy drug u se screening. Due on due Goal FIT-DNA. Due on due Goal Hep C Ab w/Rflx to Hep C RNA, Quant, RT-PCR. Due on due Goal Zoster vaccine ( ). Due on due Goal Depression scree kathleen. Due on due Goal Zoster vaccine. Due on due Goal Vision Screen. [...] Lipid panel. Due on [address]-Colonography. Due on due Goal Colonoscopy. Due on 022 due Goal FIT-DNA. Due on due Goal [...] w/Rflx PCR Genotype,LIPA. Due on due Goal Td vaccine. Due on due Goal Tdap. Due on due Goal Hep C Ab w/Rflx PCR Genotype,LIPA. Due on due Goal Colonoscopy. Due on 022 due Goal Lipid panel. Due on 028 [...] due Goal CT-Colonography. Due on due Goal HPV. Due on due Goal Vision Screen. Due on due Goal Unhealthy drug u se screening. Due on due Goal Tdap. Due on due Goal FIT-DNA. Due on [...] Goal Colonoscopy. Due on 022 due Goal Lifestyle education regardin g diet completed Goal Lifestyle education regardin g diet completed Goal FIT-DNA. Due on due Goal HPV. [...] due Goal Mammogram. Due on due Goal FIT. Due on [...] due Goal FIT-DNA. Due on due Goal Mammogram. Due on [...] Ag/Ab with Reflex. Due on due Goal Influenza vaccin e. [...] Referred To: Ordered: Referrals: Ophthalmology. . Location: [facility]. Consult ordered Referral Ordered: -Ophthalmology (related to [...] Order: Lab Order CBC (INC LUDES DIFF/PLT) ([id number]), Sent on: Sent Future Order: Lab Order COMPREHE NSIVE METABOLIC PANEL ([id number]), Sent on: Sent Future Order: Lab Order HEMOGLOB IN A1C ([id number]), Sent on: Sent Future Order: Lab Order LIPID NV OFILE ([id number]), Sent on: Sent Future Order: Lab Order TSH AND FREE T4 ([id number]), Sent on: Sent Future Order: Radiology Order Ma mmogram: Screening - Bilateral ([id number]), Ordered on: Ordered Future Order: Radiology Order X- ray L-Spine: 4-5 Views ([id number]), Added on: New Future Order: Lab Order CBC (INC LUDES DIFF/PLT) ([id number]), Sent on: Sent Future Order: Lab Order COMPREHE NSIVE METABOLIC PANEL ([id number]), Sent on: Sent Future Order: Lab Order LIPID PA SETH ([id number]), Sent on: Sent Future Order: Lab Order TSH W/RE FLEX TO FREE T4 ([id number]), Sent on: Sent Future Order: Lab Order VITAMIN D,25-OH,TOTAL,IA ([id number]), Sent on: Sent Future Order: Lab Order HEMOGLOB IN A1C ([id number]), Sent on: Sent Future Order: Lab Order MICROALB UMIN, RANDOM URINE (W/CREATININE) ([id number]), Sent on: Sent Future Order: Radiology Order Ul trasound, Breast, Complete ([id number]), Added on: New Future Order: Radiology Order Di gital Diagnostic Mammogram, Unilateral R ([id number]), Added on: New Future Order: Radiology Order Di gital Screening Mammogram, Bilateral ([id number]), Added on: New Future Order: Lab Order FECAL GL OBIN BY IMMUNOCHEMISTRY ([id number]), Ordered on: Ordered History Of Present Illness Encounter Date Complaint History Of Prese nt Illness 4m MED ck. Patient now has insurance to be scheduled for cat pre op at [facility], appointment was scheduled as a med ck [...] medication there. She has not been to [place] in 3 years. She is having PHILLIPS's [...] some weight recently. No family Hx of WI's or strokes, no heart problems. No family [...] and vomiting. Additional Information Seen at [facility] on 12/02/18 for near syncope episode lasting [...] that was prescribed by [place] doctor in [place] she has not been taking medication for [...] (such as a psychiatrist, psychologist, nurse, or hospice social worker)--DeclinedSee someone right away if you [...] (such as a psychiatrist, psychologist, nurse, or hospice social worker)--Referred.See someone right away if you [...] to ER if worse. Related to Cystitis Dietary management e ducation, guidance, and counseling Related to Body mass index [BMI] 35.0-35.9, adult Giving encouragement to exercise Related [...] or as needed. 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
== END 2025-02-15 09:38 | disposition home or self-care (01) ==
LOC: HO.HVS 09:19
PROVIDERS: PCP Internal Medicine; Visit Provider Physician Assistant Surgical
DX: I83.11 Varicose veins of right lower extremity with inflammation (principal); I83.12 Varicose veins of left lower extremity with inflammation
CPT/HCPCS: 99214

== ENCOUNTER → 2025-02-15 09:18 | Outpatient (BNVA) | payer OTHER, SELFPAY | PROVIDERS: PCP Internal Medicine; Visit Provider Physician Assistant Surgical | DX: I83.11 Varicose veins of right lower extremity with inflammation (principal); I83.12 Varicose veins of left lower extremity with inflammation | CPT/HCPCS: 99212 ==

== ENCOUNTER 2025-02-18 13:53 | Outpatient (AMB) | payer OTHER, SELFPAY ==
--- OUTSIDE RECORDS SUMMARY | 2025-02-03 08:42 | XMS_ITS | Continuity of Care Document ---
Author Organization [employer] Address [facility] [address] [place] [id number] Phone Care Team Providers Care Mdm Developer Name Role Phone Elyse Christiansen Unavailable Unavailable [...] 1 capsule by mouth daily - Active lisinopril 10 mg tablet TAKE 1 TABLET BY ORAL ROUTE EVERY DAY - No Longer Active Procedures Procedure Date EYE EXAM ESTABLISHED PAT OFFICE/OUTPATIENT VISIT, EST TOBACCO NON-USER SYST BP >= 140 MM HG6 IT DIAST BP 80-89 MM HG Chalo-13-2025 WEIGHT RECORDED BODY MASS INDEX DOCD MED LIST DOCD IN [facility] EYE EXAM & TREATMENT OFFICE/OUTPATIENT VISIT, NEW TOBACCO NON-USER SYST BP LT 130 MM HG Sys bp less 140 DIAST BP < 80 MM HG Vela bp less 90 WEIGHT RECORDED BODY MASS INDEX DOCD MED LIST DOCD IN [facility] OFFICE/OUTPATIENT VISIT, EST TOBACCO NON-USER SYST BP LT 130 MM HG Sys bp less 140 DIAST BP < 80 MM HG Vela bp less 90 DSCHRG MED/CURRENT MED MERGE WEIGHT RECORDED BODY MASS INDEX DOCD MED LIST DOCD IN [facility] OFFICE/OUTPATIENT VISIT, NEW OFFICE/OUTPATIENT VISIT, EST URINALYSIS [...] Diagnoses Date Provider Providers Copied on Encounter [facility], [address] [place] [address] [address], [place], [id number], [place] tel:[phone] [facility] No Information 5 Cooper Pappas. [address], [address], [place], [place], [id number], [place]. tel:[phone] [facility], [address] [place] [address], [id number], [place] tel:[phone] [facility] 4m MED ck. (chief complaint) Combined forms of age-related cataract, bilateralPeri pheral pterygium, progressive, bilateral 5 Jose Coyle. [address], [place], [place], [id number], [place]. tel:[phone] OFFICE/OUTPA TIENT VISIT, [facility], [address] [place] [address], [id number], [place] tel:[phone] [facility] Medication Review/Polyph armacy (chief complaint)hyp ertension (chief complaint) Body mass index (BMI) 37.0-37.9, adultDietary counseling and surveillanceE ssential (primary) hypertensionP rediabetesHyp erlipidemia, unspecified hyperlipidemi a type 5 Cooper Pappas. [address], [place], [place], [id number], [place]. tel:[phone] [facility], [address] [place] [address], [id number], [place] tel:[phone] [facility] x blurry va (chief complaint) Combined forms of age-related cataract, bilateral 5 Jose Coyle. [address], [place], [place], [id number], [place]. tel:[phone] [facility], [address] [place] [address], [id number], [place] tel:[phone] [facility] No Information 3 Lucas Montalvo. [address], [place], [place], [id number], [place]. tel:[phone] OFFICE/OUTPA TIENT VISIT, [facility], [address] [place] [address], [id number], [place] tel:[phone] [facility] Growth (chief complaint)Whit wth (chief complaint) Peroneal ganglion cystChronic pain of right ankle 3 Michael Frankel. [address], [place], [id number], [place]. tel:[phone] OFFICE/OUTPA TIENT VISIT, [facility], [address] [place] [address], [id number], [place] tel:[phone] [facility] Follow Up of Depression (chief complaint)Fol low Up of hypertension (chief complaint) Body mass index (BMI) 35.0-35.9, adultDietary counseling and surveillanceE ssential hypertensionM oderate major depression 3 Lucas Montalvo. [address] [place], [place], [id number], [place]. tel:[phone] [facility], [address] [place] [address], [id number], [place] tel:[phone] [facility] Vitamin D insufficiency 3 Lucas Montalvo. [address] [place] [address], [place], [id number], [place]. tel:[phone] OFFICE/OUTPA TIENT VISIT, [facility], [address] [place] [address], [id number], [place] tel:[phone] [facility] hypertension (chief complaint)dep ression (chief complaint) Body mass index (BMI) 34.0-34.9, adultDietary counseling and surveillanceM oderate major depressionEss ential hypertensionB reast cancer screening 3 Lucas Montalvo. [address], [place], [id number], [place]. tel:[phone] [facility], [address] [place] [address], [id number], [place] tel:[phone] [facility] Degenerative lumbar discRetrolist hesis of vertebrae 2 No Information OFFICE/OUTPA TIENT VISIT, [facility], [address] [place] [address], [id number], [place] tel:[phone] [facility] back pain (chief complaint) Body mass index (BMI) 35.0-35.9, adultChronic left-sided low back pain with left-sided sciatica 2 Eliza Fu. [address], [address], [place], [place], [id number], [place]. tel:[phone] OFFICE/OUTPA TIENT VISIT, [facility], [address] [place] [address], [id number], [place] tel:[phone] [facility] UTI (chief complaint) Body mass index (BMI) 35.0-35.9, adultCystitis Essential (primary) hypertension 2 Eliza Fu. [address], [address], [place], [place], [id number], [place]. tel:[phone] OFFICE/OUTPA TIENT VISIT, [facility], [address] [place] [address], [id number], [place] tel:[phone] [facility] hypertension (chief complaint) Body mass index (BMI) 35.0-35.9, adultEssentia l (primary) hypertension 0 No Information OFFICE/OUTPA TIENT VISIT, [facility], [address] [place] [address], [id number], [place] tel:[phone] [facility] hypertension (chief complaint) Body mass index (BMI) 35.0-35.9, adultHyperlip idemia, unspecified hyperlipidemi a typeEssential (primary) hypertension 9 No Information OFFICE/OUTPA TIENT VISIT, [facility], [address] [place] [address], [id number], [place] tel:[phone] [facility] hypertension (chief complaint)ER Follow Up (chief complaint)Add itional Information (chief complaint) Body mass index (BMI) 35.0-35.9, adultEssentia l (primary) hypertensionI ntermittent palpitations 9 No Information [facility], [address] [place] [address], [id number], [place] tel:[phone] [facility] Abnormal mammogram of right breast 9 No Information OFFICE/OUTPA TIENT VISIT, [facility], [address] [place] [address], [id number], [place] tel:[phone] [facility] Follow Up of Weight management (chief complaint)Add itional info (chief complaint) Body mass index (BMI) 35.0-35.9, adultHyperlip idemia, unspecified hyperlipidemi a typeObesity (BMI 30-39.9) Oct- 9 No Information OFFICE/OUTPA TIENT VISIT, [facility], [address] [place] [address], [id number], [place] tel:[phone] [facility] annual exam (chief complaint) Body mass index (BMI) 35.0-35.9, adultEncntr for software design manager exam (general) (routine) w/o abn findingsCervi hannah cancer screeningBrea st cancer screeningVagi nal discharge 9 No Information OFFICE/OUTPA TIENT VISIT, [facility], [address] [place] [address], [id number], [place] tel:[phone] [facility] Ocular Discomfort (chief complaint) Peripheral pterygium, progressive, bilateral Oct- 9 Salomon Marcelo. [address] [place], [place], [place], [id number], [place]. tel:[phone] OFFICE/OUTPA TIENT VISIT, [facility], [address] [place] [address], [id number], [place] tel:[phone] [facility] Obesity (chief complaint)Ski n lesion (chief complaint) Body mass index (BMI) 36.0-36.9, adultColon cancer screeningObes ity (BMI 30-39.9)Vener eal disease screeningNume zelalem skin molesConstipa tion, unspecified constipation typeEssential (primary) hypertension 9 No Information OFFICE/OUTPA TIENT VISIT, [facility], [address] [place] [address], [id number], [place] tel:[phone] [facility] Weight Management (chief complaint)Obe sity (chief complaint) PrediabetesBo dy mass index (BMI) 36.0-36.9, adultPterygiu m of both eyesObesity (BMI 30-39.9) 9 No Information OFFICE/OUTPA TIENT VISIT, [facility], [address] [place] [address], [id number], [place] tel:[phone] [facility] hypertension (chief complaint) Body mass index (BMI) 29.0-29.9, adultGERD with esophagitisEn counter for screening for nutritional disorderEssen tial (primary) hypertensionL eft anterior knee pain 8 No Information OFFICE/OUTPA TIENT VISIT, [facility], [address] [place] [address], [id number], [place] tel:[phone] [facility] Follow up on lab test(s) (chief complaint) Body mass index (BMI) 29.0-29.9, adultEssentia l (primary) hypertensionP rediabetesEle vated LDL cholesterol levelVitamin D deficiency 8 No Information OFFICE/OUTPA TIENT VISIT, [facility], [address] [place] [address], [id number], [place] tel:[phone] [facility] est care (chief complaint)hyp ertension [...] hypertension Payers Payer name Insurance type Covered republican ID Authorniurka atkins(s) [facility] [id number] Social History Type Description Quantity Date Captured [...] Td vaccine. Due on 25 due Goal Zoster vaccine. Due on due [...] FIT-DNA. Due on due Goal Hep C Ab. [...] diet completed Goal Td vaccine. Due on due Goal Lipid panel. Due on due Goal Tdap. Due on [...] Lifestyle education regardin g diet completed Goal HPV. Due on due Goal Substance [...] Goal FIT-DNA. Due on due Goal Hepatitis Panel (incl Hep A Tot, Hep B Tot) w/Rflx. Due on due Goal Lipid panel. Due on 028 due Goal FOBT. Due on due Goal Hep C Ab w/Rflx to Hep C RNA, Quant, RT-PCR. Due on due Goal Hep C Ab w/Rflx PCR Genotype,LIPA. Due on due Goal Tdap. Due on [...] u se screening. Due on due Goal Hepatitis Panel (incl [...] Goal HPV. Due on due Goal Hepatitis C scre [...] due Goal HPV. Due on due Goal Colonoscopy. Due on due Goal Vision Screen. Due on due Goal FIT. Due on due Goal Hep C Ab. Due on due Goal CT-Colonography. Due on due Goal Lifestyle education regardin g diet completed Goal HPV. Due on due Goal Unhealthy drug u se screening. Due on due Goal Zoster vaccine ( ). Due on due Goal FIT. Due on due Goal FIT-DNA. Due on due Goal Hepatitis C scre ening. Due on due Goal FOBT. Due on due Goal Tdap. Due on due Goal Hepatitis Panel (incl Hep A Tot, Hep B Tot) w/Rflx. Due on due Goal Depression scree kathleen. Due on due Goal Vision Screen. Due on due Goal Sigmoidoscopy. Due on due Goal Mammogram. Due on 1 due Goal Td vaccine. Due on 22 due Goal Substance Abuse Screen. Due on due Goal Influenza vaccin e. Due on due Goal Hep C Ab. Due on due Goal Colonoscopy. Due on due Goal CT-Colonography. Due on due Goal Dietary manageme nt education, guidance, and counseling completed Goal Substance Abuse Screen. Due on [...] g diet completed Goal Colonoscopy. Due on due Goal Mammogram. [...] due Goal Colonoscopy. Due on due Goal Colonoscopy. Due on [...] completed Goal Sigmoidoscopy. Due on due Goal Colonoscopy. [...] Td vaccine. Due on 19 due Goal Influenza vaccin e. Due on [...] Referred To: Ordered: Referrals: Ophthalmology. . Location: [facility]. Consult ordered Referral Ordered: -Ophthalmology (related [...] Order: Lab Order CBC (INC LUDES DIFF/PLT) ([id number]), Sent on: Sent Future Order: Lab Order COMPREHE NSIVE METABOLIC PANEL ([id number]), Sent on: Sent Future Order: Lab Order HEMOGLOB IN A1C (496), Sent on: Sent Future Order: Lab Order LIPID RI OFILE ([id number]), Sent on: Sent Future Order: Lab Order TSH AND FREE T4 ([id number]), Sent on: Sent Future Order: Radiology Order Ma mmogram: Screening - Bilateral ([id number]), Ordered on: Ordered Future Order: Radiology Order X- ray L-Spine: 4-5 Views ([id number]), Added on: New Future Order: Lab Order CBC (INC LUDES DIFF/PLT) ([id number]), Sent on: Sent Future Order: Lab Order COMPREHE NSIVE METABOLIC PANEL ([id number]), Sent on: Sent Future Order: Lab Order LIPID PA SETH ([id number]), Sent on: Sent Future Order: Lab Order TSH W/RE FLEX TO FREE T4 ([id number]), Sent on: Sent Future Order: Lab Order VITAMIN D,25-OH,TOTAL,IA ([id number]), Sent on: Sent Future Order: Lab Order HEMOGLOB IN A1C ([id number]), Sent on: Sent Future Order: Lab Order MICROALB UMIN, RANDOM URINE (W/CREATININE) ([id number]), Sent on: Sent Future Order: Radiology Order Ul trasound, Breast, Complete ([id number]), Added on: New Future Order: Radiology Order Di gital Diagnostic Mammogram, Unilateral R ([id number]), Added on: New Future Order: Radiology Order Di gital Screening Mammogram, Bilateral ([id number]), Added on: New Future Order: Lab Order FECAL GL OBIN BY IMMUNOCHEMISTRY ([id number]), Ordered on: Ordered History Of Present Illness Encounter Date Complaint History Of Prese nt Illness 4m MED ck. Patient now has insurance to be scheduled for cat pre op at [facility], appointment was scheduled as a med [...] years ago. She was being seen in [place] for HTN and getting her medication there. She has not been to [place] in 3 years. She is having PHILLIPS's [...] some weight recently. No family Hx of SD's or strokes, no heart problems. No family [...] ankle.Patient brought an Ultrasound report done in [place] on 2021.Patient complains the growth on her [...] due to not having insurance.Patient going to [place] for two months. hypertension Risk factors inc [...] and vomiting. Additional Information Seen at [facility] on 12/02/18 for near syncope episode lasting [...] 10/05/18. Follow Up of Weight management P atient is present today to follow up her [...] that was prescribed by [place] doctor in [place] she has not been taking medication for [...] a psychiatrist, psychologist, nurse, or social media coordinator)--DeclinedSee someone right away if you want to [...] a psychiatrist, psychologist, nurse, or social media coordinator)--Referred.See someone right away if you want to [...] or as needed. 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 Instructed NSAIDs are not indicated for penitentiary use. Instructed that this medication should not [...]
--- NOTE | 2025-02-18 13:56 | A.OFFPC_ITS ---
Vital Signs 02/18/25 13:57 Height 5 ft 2 in Weight 263 lb BMI 48.1 BP 124/90 H Blood Pressure Location Rt brachial Position Sitting Respiration 17 Pulse 91 Pulse Source Pulse Oximeter Temp 98.3 F Temp Source Oral Pulse Oximetry (%) 98 Oxygen Delivery Method Room Air Intake Visit Reasons: Annual PE Allergies adhesive tape Allergy (Intermediate, Verified 02/18/25 13:59) skin breakdown Medication List - Last Reconciled 02/18/25 by Skyler Whitfield MD cetirizine 10 mg PO DAILY PRN cholecalciferol (vitamin D3) (Vitamin D3) 2,000 units PO DAILY 90 days furosemide 10 mg (1/2 x 20 mg) PO QAM gabapentin 400 mg PO TID 30 days ipratropium bromide 2 sprays intranasal DAILY PRN ketotifen fumarate 0.025%(0.035%) drps ophthalmic (eye) magnesium oxide 400 mg PO DAILY 30 days metoprolol succinate ER 25 mg PO DAILY 90 days uqzjnbvbctqj-wqj-wcdy-FA-vit K 45 mg iron- 800 mcg-120 mcg (Bariatric Multivitamins) 1 cap PO .QD tramadol 50 mg PO BID PRN 30 days triamcinolone acetonide 2 sprays intranasal DAILY valsartan 80 mg PO DAILY vibegron (Gemtesa) 75 mg PO DAILY vitamin A 2 caps PO DAILY walker As directed zinc 25 mg PO DAILY Tobacco use date assessed: 02/18/25 Dental Screening Dental Screen Date: 02/18/25 Did you have a dental visit in the last 12 months?: Yes Did you have a dental problem in the last 6 months where you did not have access to dental care?: No Was dental information given to patient?: Patient has dentist HPI Annual PE HPI Details PE apt - The patient is a 59-year-old female pr esenting with a wellness check and management of chronic conditions. - Allergic rhinitis: The patient is taki ng cetirizine for allergy management. - Peripheral edema: Managed with furosem suyapa as needed, prescribed by cardiology. - Neuropathy: The patient is on gabapent in 400 mg, prescribed by neurology. - Hypertension: Managed with metoprolol and valsartan, prescribed by cardiology. - Anemia: Hemoglobin was 11.6 in , stable from June of last year. - Preventative care: Mammogram scheduled for March and colonoscopy scheduled for 2026. Health Maintenance - Mammogram scheduled for March as part o f routine screening. - Colonoscopy scheduled for 2026 for col orectal cancer screening. - Blood tests ordered as part of prevent maribell care, including fasting labs. 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 Medications - Cetirizine for allergic rhinitis - Vitamin D supplement - Furosemide as needed for peripheral ed jarad - Gabapentin 400 mg for neuropathy - Metoprolol for hypertension - Tramadol - Valsartan for hypertension Diagnostic results - Labs: Hemoglobin was 11.6 in October, stable from June of last year. - Labs: Last set of electrolytes and met abolic profile from June of last year showed intact kidney functions. - Labs: No problems with lipid enzymes. Patient Instructions - Schedule and complete fasting blood te sts as ordered. - Follow up with cardiology for clearanc e for dental procedures. - Attend scheduled mammogram in March and colonoscopy in 2026. Review of Systems - General: No fever no chills - Neurological: No headaches no dizzin ess - Ear nose throat: No sore throat no hearing difficulty no ear pain - Cardiovascular: No syncope, no chest pain, no palpitations - Gastrointestinal: No nausea vomiting or diarrhea - Endocrine: No polyuria polydipsia no heat intolerance - Genitourinary: No dysuria - Skin: No new complaints Physical Exam General: Cooperative, healthy appearing, comfortable, no acute distress Orientation: Patient oriented x3 Limitations: risk for fall, use cane , home health aid starting this week for ADL assistance Head: Normal to inspection Ears: Within normal limit visually Nose: Normal external nose present Face and sinus: Normal facial exam Eyes: Appearance normal, extraocular movement intact pupils reactive Neck: Normal visual inspection and supple Respiratory: Normal respiratory effort and able to speak in complete sentences. Clear to auscultation, no stridor Cardiovascular: S1 and S2 RRR GI: Normal to inspection. Soft to palpation and nontender Skin: Turgor normal, chronic swelling noted with skin color changes Neuro: Patient oriented x3, motor sensory intact, balance disorder noted Extremities: chronic edema with stasis dermatitis both side [facility] Medical History Pain at surgical incision Urinary incontinence in female Stress incontinence Lumbar back pain with radiculopathy affecting left lower extremity GERD (gastroesophageal reflux disease) HTN (hypertension) Complex regional pain syndrome i of left lower limb Chronic pain syndrome Cardiac pacemaker in situ Cardiomyopathy Second degree AV block Allergies Osteoarthritis of left knee Spondylosis of lumbosacral spine with radiculopathy Back pain Surgical History History of hernia repair (~11/12/23) H/O gastric bypass Gastric bypass status for obesity Hx of cholecystectomy Hx of breast reduction, elective Hx of colonoscopy History of esophagogastroduodenoscopy (EGD) History of permanent cardiac pacemaker placement Family History Father Asthma Mother HTN (hypertension) Alzheimer disease Brother Cardiac pacemaker Sister Colon cancer Metastatic cancer Social History Household Members: None Housing: Apartment Do you presently have 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 1. Little interest or pleasure in doing things: not at all 2. Feeling down, depressed, or hopeless: not at all 3. Trouble falling or staying asleep, or sleeping too much: not at all 4. Feeling tired or having little energy: not at all 5. Poor appetite or overeating: not at all 6. Feeling bad about yourself - or that you are a failure or have let yourself or your family down: not at all 7. Trouble concentrating on things, such as reading the newspaper or watching television: not at all 8. Moving or speaking so slowly that other people could have noticed. Or the opposite - being so fidgety or restless that you have been moving around a lot more than usual: not at all 9. Thoughts that you would be better off or of hurting yourself in some way: not at all Total score: 0 Depression Screening Interpretation: Negative Depression Screening Done: Yes 90868 - PHQ-9 Billing: Yes Source: Developed by Drs. Omi Oneill, Barbara Mims, Rodrigo Flores and colleagues, with an educational kevyn from [employer]. Thrive Questionnaire Date Thrive assessed: 02/18/25 I am a: Patient What is your living situation today?: I have a steady place to live Within the past 12 months, did the food you bought not last and you didn't have the money to get more?: Never true Within the past 12 months, did you worry whether your food would run out before you got money to buy more?: Never true Do you have trouble paying for medicines?: No Do you have trouble getting transportation to medical appointments?: No Do you have trouble paying your heating and electricity bill?: No Do you have trouble taking care of your child, family member or friend?: No Do you have trouble with day-to-day activities such as bathing, preparing meals, shopping, managing finances, etc.?: No Are you currently unemployed and looking for a job?: No Are you interested in more education?: No THRIVE Score: 0 AUDIT C Alcohol Use Questionnaire (AUDIT-C) 1. How often do you have a drink containing alcohol?: Never Total Score: 0 RITA-7 AMB Questionnaire RITA-7 Date RITA - 7 assessed: 02/18/25 Feeling nervous, anxious, or on edge: 0 = Not at all Not being able to stop or control worryin = Not at all Worrying too much about different things: 0 = Not at all Trouble relaxin = Not at all Being so restless that it is hard to sit still: 0 = Not at all Becoming easily annoyed or irritable: 0 = Not at all Feeling afraid as if something awful might happen: 0 = Not at all Total RITA-7 score (0-4 normal; 5-9 mild; 10-14 moderate; 15-21 severe): 0 Source: Developed by Drs. Omi Oneill, Barbara Mims, Rodrigo Flores and colleagues, with an educational kevyn from [employer]. Physical exam (Primary Care) Vital Signs: Last Vital Signs Temp 98.3 F 02/18/25 13:57 Pulse 91 02/18/25 13:57 Resp 17 02/18/25 13:57 BP 124/90 H 02/18/25 13:57 Pulse Ox 98 02/18/25 13:57 Oxygen Delivery Method Room Air 02/18/25 13:57 BMI result Body Mass Index 48.1 Tobacco/Smoking Status: Tobacco use Status Tobacco use date assessed 02/18/25 02/18/25 14:00 Patient Tobacco Use Status Former Tobacco user 02/18/25 14:00 e-Cigarette/Vaping Use Never Used 02/18/25 14:00 PHQ-9: PHQ-9 Score PHQ-9: Total score 0 02/18/25 14:01 Depression Screening Interpretation: Negative Thrive Assessment: Date of Thrive Assessment Date Thrive assessed 02/18/25 02/18/25 14:01 Coding Level of Care Code Est Pt Level 3 (67917) Est Pt Prev Care 40-64y(38094) Diagnoses Encounter for general adult medical examination with abnormal findings Z00.01 Peripheral edema R60.0 Balance disorder R26.89 Obstructive sleep apnea G47.33 Chronic pain syndrome G89.4 Complex regional pain syndrome i of left lower limb G90.522 Primary osteoarthritis of knees, bilateral M17.0 Other iron deficiency anemia D50.8 Iron deficiency anemia type: other iron deficiency Morbid obesity E66.01 H/O gastric bypass Z98.84 Cardiomyopathy, unspecified type I42.9 Cardiomyopathy type: unspecified Use of cane as ambulatory aid Z99.89 Risk for falls Z91.81 Additional Codes PHQ-9 - 96193 - PHQ-9 Billing: Yes ([id number]) Assessment & Plan Assessment & Plan (1) Encounter for general adult medical examination with abnormal findings: Code(s): Z00.01 - Encounter for general adult medical examination with abnormal findings Category: Medical (2) Peripheral edema: Code(s): R60.0 - Localized edema Category: Medical (3) Balance disorder: Code(s): R26.89 - Other abnormalities of gait and mobility Category: Medical (4) Obstructive sleep apnea: Code(s): G47.33 - Obstructive sleep apnea (adult) (pediatric) Category: Medical (5) Chronic pain syndrome: Code(s): G89.4 - Chronic pain syndrome Category: Medical (6) Complex regional pain syndrome i of left lower limb: Code(s): G90.522 - Complex regional pain syndrome I of left lower limb Category: Medical (7) Primary osteoarthritis of knees, bilateral: Code(s): M17.0 - Bilateral primary osteoarthritis of knee Category: Medical (8) Iron deficiency anemia: Code(s): D50.9 - Iron deficiency anemia, unspecified Category: Medical Qualifiers: Iron deficiency anemia type: other iron deficiency Qualified Code(s): D50.8 - Other iron deficiency anemias (9) Morbid obesity: Code(s): E66.01 - Morbid (severe) obesity due to excess calories Category: Medical (10) H/O gastric bypass: Code(s): Z98.84 - Bariatric surgery status Category: Surgical (11) Cardiomyopathy: Code(s): I42.9 - Cardiomyopathy, unspecified Category: Medical Qualifiers: Cardiomyopathy type: unspecified Qualified Code(s): I42.9 - Cardiomyopathy, unspecified (12) Use of cane as ambulatory aid: Code(s): Z99.89 - Dependence on other enabling machines and devices Category: Medical (13) Risk for falls: Code(s): Z91.81 - History of falling Category: Medical Plan PE apt - The patient is a 59-year-old female presenting with a wellness check and management of chronic conditions. - Allergic rhinitis: The patient is taking cetirizine for allergy management. - Peripheral edema: Managed with furosemide as needed, prescribed by cardiology. - Neuropathy: The patient is on gabapentin 400 mg, prescribed by neurology. - Hypertension: Managed with metoprolol and valsartan, prescribed by cardiology. - Anemia: Hemoglobin was 11.6 in October, stable from June of last year. - Preventative care: Mammogram scheduled for March and colonoscopy scheduled for 2026. Health Maintenance - Mammogram scheduled for March as part of routine screening. - Colonoscopy scheduled for 2026 for colorectal cancer screening. - Blood tests ordered as part of preventive care, including fasting labs. 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 Medications - Cetirizine for allergic rhinitis - Vitamin D supplement - Furosemide as needed for peripheral edema - Gabapentin 400 mg for neuropathy - Metoprolol for hypertension - Tramadol - Valsartan for hypertension Diagnostic results - Labs: Hemoglobin was 11.6 in October, stable from June of last year. - Labs: Last set of electrolytes and metabolic profile from June of last year showed intact kidney functions. - Labs: No problems with lipid enzymes. Patient Instructions - Schedule and complete fasting blood tests as ordered. - Follow up with cardiology for clearance for dental procedures. - Attend scheduled mammogram in March and colonoscopy in 2026. Orders: Orders Vitamin D 25-OH (D2 and D3) Today D50.9 - Iron deficiency anemia, unspecified, E66.01 - Morbid (severe) obesity due to excess calories, G47.33 - Obstructive sleep apnea (adult) (pediatric), G89.4 - Chronic pain syndrome, G90.522 - Complex regional pain syndrome I of left lower limb, I42.9 - Cardiomyopathy, unspecified, M17.0 - Bilateral primary osteoarthritis of knee, R60.0 - Localized edema, T78.40XA - Allergy, unspecified, initial encounter, Z00.01 - Encounter for general adult medical examination with abnormal findings, Z98.84 - Bariatric surgery status Ferritin Today D50.9 - Iron deficiency anemia, unspecified, E66.01 - Morbid (severe) obesity due to excess calories, G47.33 - Obstructive sleep apnea (adult) (pediatric), G89.4 - Chronic pain syndrome, G90.522 - Complex regional pain syndrome I of left lower limb, I42.9 - Cardiomyopathy, unspecified, M17.0 - Bilateral primary osteoarthritis of knee, R60.0 - Localized edema, T78.40XA - Allergy, unspecified, initial encounter, Z00.01 - Encounter for general adult medical examination with abnormal findings, Z98.84 - Bariatric surgery status Complete Blood Count Auto Diff Today D50.9 - Iron deficiency anemia, unspecified, E66.01 - Morbid (severe) obesity due to excess calories, G47.33 - Obstructive sleep apnea (adult) (pediatric), G89.4 - Chronic pain syndrome, G90.522 - Complex regional pain syndrome I of left lower limb, I42.9 - Cardiomyopathy, unspecified, M17.0 - Bilateral primary osteoarthritis of knee, R60.0 - Localized edema, T78.40XA - Allergy, unspecified, initial encounter, Z00.01 - Encounter for general adult medical examination with abnormal findings, Z98.84 - Bariatric surgery status Comprehensive [place]. Panel Fast Today D50.9 - Iron deficiency anemia, unspecified, E66.01 - Morbid (severe) obesity due to excess calories, G47.33 - Obstructive sleep apnea (adult) (pediatric), G89.4 - Chronic pain syndrome, G90.522 - Complex regional pain syndrome I of left lower limb, I42.9 - Cardiomyopathy, unspecified, M17.0 - Bilateral primary osteoarthritis of knee, R60.0 - Localized edema, T78.40XA - Allergy, unspecified, initial encounter, Z00.01 - Encounter for general adult medical examination with abnormal findings, Z98.84 - Bariatric surgery status Lipid Panel Today D50.9 - Iron deficiency anemia, unspecified, E66.01 - Morbid (severe) obesity due to excess calories, G47.33 - Obstructive sleep apnea (adult) (pediatric), G89.4 - Chronic pain syndrome, G90.522 - Complex regional pain syndrome I of left lower limb, I42.9 - Cardiomyopathy, unspecified, M17.0 - Bilateral primary osteoarthritis of knee, R60.0 - Localized edema, T78.40XA - Allergy, unspecified, initial encounter, Z00.01 - Encounter for general adult medical examination with abnormal findings, Z98.84 - Bariatric surgery status TSH reflex Free T4 Today D50.9 - Iron deficiency anemia, unspecified, E66.01 - Morbid (severe) obesity due to excess calories, G47.33 - Obstructive sleep apnea (adult) (pediatric), G89.4 - Chronic pain syndrome, G90.522 - Complex regional pain syndrome I of left lower limb, I42.9 - Cardiomyopathy, unspecified, M17.0 - Bilateral primary osteoarthritis of knee, R60.0 - Localized edema, T78.40XA - Allergy, unspecified, initial encounter, Z00.01 - Encounter for general adult medical examination with abnormal findings, Z98.84 - Bariatric surgery status
[2025-02-18 13:57] VITALS: BP 124/90; PULSE 91; RESP 17; TEMP 36.8; O2SAT 98; BMI 48.1
== END 2025-02-18 14:19 | disposition home or self-care (01) ==
LOC: HO.HMCC 13:54
PROVIDERS: PCP Internal Medicine; Visit Provider Internal Medicine
DX: Z00.01 Encounter for general adult medical examination with abnormal findings (principal); I42.9 Cardiomyopathy, unspecified; E66.01 Morbid (severe) obesity due to excess calories; Z68.42 Body mass index [BMI] 45.0-49.9, adult; R60.0 Localized edema; R26.89 Other abnormalities of gait and mobility; G47.33 Obstructive sleep apnea (adult) (pediatric); G89.4 Chronic pain syndrome; G90.522 Complex regional pain syndrome I of left lower limb; M17.0 Bilateral primary osteoarthritis of knee; D50.8 Other iron deficiency anemias; Z98.84 Bariatric surgery status

== ENCOUNTER → 2025-02-18 13:53 | Outpatient (BNVA) | payer OTHER, SELFPAY | PROVIDERS: PCP Internal Medicine; Visit Provider Internal Medicine | DX: Z00.01 Encounter for general adult medical examination with abnormal findings (principal); R60.0 Localized edema; R26.89 Other abnormalities of gait and mobility; G47.33 Obstructive sleep apnea (adult) (pediatric); G89.4 Chronic pain syndrome; G90.522 Complex regional pain syndrome I of left lower limb; M17.0 Bilateral primary osteoarthritis of knee; D50.8 Other iron deficiency anemias; E66.01 Morbid (severe) obesity due to excess calories; I42.9 Cardiomyopathy, unspecified; Z91.81 History of falling; Z99.89 Dependence on other enabling machines and devices; Z98.84 Bariatric surgery status | CPT/HCPCS: 96127; 99212; 99396 ==

== ENCOUNTER 2025-02-23 13:56 | Outpatient (AMB) | payer OTHER, SELFPAY ==
--- OUTSIDE RECORDS SUMMARY | 2025-02-03 08:42 | XMS_ITS | Continuity of Care Document ---
Author Organization [facility] e Address [address] [place] [id number] Phone Care Team Providers Care Disk Sharpener Name Role Phone Elyse Christiansen Unavailable Unavailable Allergies, Adverse Reactions, Alerts Substance Reaction Status Criticality No Known Allergies Active No Inform ation Medications Medication Instructions Dosage Effective Dates (start - stop) Status Comments lisinopril 10 mg tablet TAKE 1 TABLET BY MOUTH EVERY DAY - Active fluorometholone 0.1 % eye drops,suspension SHAKE WELL BEFORE USE. 1 GTT BID OU. - Active -FLUOXETINE 10MG (B) TAKE 1 CAPSULE BY MOUTH ONCE A DAY - Active -NAPROXEN 500MG (B) TAKE 1 TABLET BY MOUTH 2 TIMES EVERY DAY WITH FOOD - Active melatonin 3 mg capsule take 1 capsule 30 -60 minutes before bed time - Active Vitamin D3 25 mcg (1,000 unit) capsule take 1 capsule by mouth daily - Active Advance Directives Directive Yes / No Effective Date File Name No Information Encounters Encounter Description Practice Location Reason(s) For Visit Diagnoses Date Provider [facility], [address] [place] [address], [id number], [place] tel:[phone] [facility] No Information Cooper Pappas. [address], [id number], [place]. tel:[phone] [facility], [address] [place] [address], [id number], [place] tel:[phone] [place] [address] 4m MED ck. (chief complaint) Combined forms of age-related cataract, bilateralPeripheral pterygium, progressive, bilateral 5 Jose Coyle. [address], [address], [place], [place], [id number], [place]. tel:[phone] [facility], [address] [place] [address], [id number], [place] tel:[phone] [facility] Medication Review/Polyph armacy (chief complaint)hyp ertension (chief complaint) Body mass index (BMI) 37.0-37.9, adultDietary counseling and surveillanceEssential (primary) hypertensionPrediabete sHyperlipidemia, unspecified hyperlipidemia type 5 Cooper Pappas. [address], [address], [place], [id number], [place]. tel:[phone] [facility], [address] [place] [address], [id number], [place] tel:[phone] [facility] x blurry va (chief complaint) Combined forms of age-related cataract, bilateral 5 Garcia Jonna. [address], [address], [place], [id number], [place]. tel:[phone] [facility], [address] [place] [address], [id number], [place] tel:[phone] [facility] No Information 3 Lucas Montalvo. [address], [place], [place], [id number], [place]. tel:[phone] [facility], [address] [place] [address], [id number], [place] tel:[phone] [facility] Growth (chief complaint)[facility] (chief complaint) Peroneal ganglion cystChronic pain of right ankle Oct- 3 Michael Frankel. [address], [place], [id number], [place]. tel:[phone] [facility], [address] [place] [address], [id number], [place] tel:[phone] [facility] Follow Up of Depression (chief complaint)Fol low Up of hypertension (chief complaint) Body mass index (BMI) 35.0-35.9, adultDietary counseling and surveillanceEssential hypertensionModerate major depression 3 Lucas Montalvo. [address], [place], [place], [id number], [place]. tel:[phone] [facility], [address] [place] [address], [id number], [place] tel:[phone] [facility] Vitamin D insufficiency 3 Lucas Montalvo. [address], [place], [place], [id number], [place]. tel:[phone] [facility], [address] [place] [address], [id number], [place] tel:[phone] [facility] hypertension (chief complaint)dep ression (chief complaint) Body mass index (BMI) 34.0-34.9, adultDietary counseling and surveillanceModerate major depressionEssential hypertensionBreast cancer screening 3 Lucas Montalvo. [address], [place], [id number], [place]. tel:[phone] [facility], [address] [place] [address], [id number], [place] tel:[phone] [facility] Degenerative lumbar discRetrolisthesis of vertebrae 2 No Information [facility], [address] [place] [address], [id number], [place] tel:[phone] [facility] back pain (chief complaint) Body mass index (BMI) 35.0-35.9, adultChronic left-sided low back pain with left-sided sciatica 2 Eliza Fu. [address], [facility] [address], [place], [place], [id number], [place]. tel:[phone] [facility], [address] [place] [address], [id number], [place] tel:[phone] [facility] UTI (chief complaint) Body mass index (BMI) 35.0-35.9, adultCystitisEssential (primary) hypertension Nov- 2 [facility]. [address], [facility] [address], [id number], [place]. tel:[phone] [facility], [address] [place] [address], [id number], [place] tel:[phone] [facility] hypertension (chief complaint) Body mass index (BMI) 35.0-35.9, adultEssential (primary) hypertension 0 No Information [facility], [address] [place] [address], [id number], [place] tel:[phone] [facility] hypertension (chief complaint) Body mass index (BMI) 35.0-35.9, adultHyperlipidemia, unspecified hyperlipidemia typeEssential (primary) hypertension 9 No Information [facility], [address] [place] [address], [id number], [place] tel:[phone] [facility] hypertension (chief complaint)ER Follow Up (chief complaint)Add itional Information (chief complaint) Body mass index (BMI) 35.0-35.9, adultEssential (primary) hypertensionIntermitte nt palpitations 9 No Information [facility], [address] [place] [address], [id number], [place] tel:[phone] [facility] Abnormal mammogram of right breast 9 No Information [facility], [address] [place] [address], [id number], [place] tel:[phone] [facility] Follow Up of Weight management (chief complaint)Add itional info (chief complaint) Body mass index (BMI) 35.0-35.9, adultHyperlipidemia, unspecified hyperlipidemia typeObesity (BMI 30-39.9) 9 No Information [facility], [address] [place] [address], [id number], [place] tel:[phone] [facility] annual exam (chief complaint) Body mass index (BMI) 35.0-35.9, adultEncntr for asbestos surveyor exam (general) (routine) w/o abn findingsCervical cancer screeningBreast cancer screeningVaginal discharge No Information [facility], [address] [place] [address], [id number], [place] tel:[phone] [facility] Ocular Discomfort (chief complaint) Peripheral pterygium, progressive, bilateral Salomon Davian. [address] [place], [place], [id number], [place]. tel:[phone] [facility], [address] [place] [address], [id number], [place] tel:[phone] [facility] Obesity (chief complaint)Ski n lesion (chief complaint) Body mass index (BMI) 36.0-36.9, adultColon cancer screeningObesity (BMI 30-39.9)Venereal disease screeningNumerous skin molesConstipation, unspecified constipation typeEssential (primary) hypertension No Information [facility], [address] [place] [address], [id number], [place] tel:[phone] [facility] Weight Management (chief complaint)Obe sity (chief complaint) PrediabetesBody mass index (BMI) 36.0-36.9, adultPterygium of both eyesObesity (BMI 30-39.9) 9 No Information [facility], [address] [place] [address], [id number], [place] tel:[phone] [facility] hypertension (chief complaint) Body mass index (BMI) 29.0-29.9, adultGERD with esophagitisEncounter for screening for nutritional disorderEssential (primary) hypertensionLeft anterior knee pain 8 No Information [facility], [address] [place] [address], [id number], tel:[phone] [facility] Follow up on lab test(s) (chief complaint) Body mass index (BMI) 29.0-29.9, adultEssential (primary) hypertensionPrediabete sElevated LDL cholesterol levelVitamin D deficiency No Information [facility], [address] [place] [address], [id number], tel:[phone] [facility] est care (chief complaint)hyp ertension (chief complaint)hyp erlipidemia (chief complaint)jaw cracking (chief complaint) Adult general medical examDiabetes mellitus screeningEncounter for screening for cardiovascular disordersEncounter for screening for lipoid disordersEncounter for screening for nutritional disorderEncounter for screening for other suspected endocrine disorderEncounter for screening for malignant neoplasm of colonBody mass index (BMI) 29.0-29.9, adultEssential (primary) hypertensionTMJ click No Information Family History Family Member Type Diagnosis Age At Onset Mother Problem (finding) hypertension Payers Payer name Insurance type Covered constitution party ID Authoriza tion(s) [facility] [id number] Social History Type Description Quantity Date Captured Comments Sex Female Smoking Status No Information Sexual Orientation Straight or heterosexual Aug Gender Identity Female Chief Complaint And Reason For Visit No Information Plan Of Treatment Date Type Action Status Goal Tdap. Due on due Goal CT-Colonography. Due on due Goal Influenza vaccin e. Due on due Goal Lipid panel. Due on due Goal Hepatitis Panel (incl Hep A Tot, Hep B Tot) w/Rflx. Due on due Goal Zoster vaccine ( 1st). Due on due Goal FOBT. Due on due Goal Td vaccine. Due on due Goal Colonoscopy. Due on [...] CT-Colonography. Due on due Goal Hep C Ab [...] vaccine ( 1st). Due on due Goal Sigmoidoscopy. Due on [...] due Goal Mammogram. Due on due Goal Hepatitis Panel (incl [...] nt education, guidance, and counseling completed Goal Tdap. Due on due Goal Colonoscopy. [...] Goal Pap/HPV testing. Due on due Goal Substance Abuse Screen. Due on due Goal FOBT. Due on due Goal Sigmoidoscopy. Due on due Goal Colonoscopy. Due on 019 due Goal Mammogram. Due on 9 due Goal Influenza vaccin e. Due on due Goal Depression scree kathleen. Due on due Goal Tdap. Due on [...] Referred To: Ordered: Referrals: Ophthalmology. . Location: [facility]. Consult ordered Referral Ordered: -Ophthalmology (related [...] Order: Lab Order COMPREHE NSIVE METABOLIC PANEL ([id number]), Sent on: Sent Future Order: Lab Order HEMOGLOB IN A1C ([id number]), Sent on: Sent Future Order: Lab Order LIPID PA OFILE ([id number]), Sent on: Sent Future Order: Lab Order TSH AND FREE T4 ([id number]), Sent on: Sent Future Order: Radiology Order Ma mmogram: Screening - Bilateral ([id number]), Ordered on: Ordered Future Order: Radiology Order X- ray L-Spine: 4-5 Views ([id number]), Added on: New Future Order: Lab Order CBC (INC LUDES DIFF/PLT) ([id number]), Sent on: Sent Future Order: Lab Order COMPREHE NSIVE METABOLIC PANEL ([id number]), Sent on: Sent Future Order: Lab Order LIPID PA SETH ([id number]), Sent on: Sent Future Order: Lab Order TSH W/RE FLEX TO FREE T4 ([id number]), Sent on: Sent Future Order: Lab Order VITAMIN D,25-OH,TOTAL,IA ([id number]), Sent on: Sent Future Order: Lab Order HEMOGLOB IN A1C ([id number]), Sent on: Sent Future Order: Lab Order MICROALB UMIN, RANDOM URINE (W/CREATININE) ([id number]), Sent on: Sent Future Order: Radiology Order Ul trasound, Breast, Complete ([id number]), Added on: New Future Order: Radiology Order Di gital Diagnostic Mammogram, Unilateral R ([id number]), Added on: New Future Order: Radiology Order Di gital Screening Mammogram, Bilateral ([id number]), Added on: New Future Order: Lab Order FECAL GL OBIN BY IMMUNOCHEMISTRY ([id number]), Ordered on: Ordered History Of Present Illness Encounter Date Complaint History Of Prese nt Illness 4m MED ck. Patient now has insurance to be scheduled for cat pre op at [facility], appointment was scheduled as a med [...] years ago. She was being seen in [place] for HTN and getting her medication there. [...] some weight recently. No family Hx of MA's or strokes, no heart problems. No family [...] due to not having insurance.Patient going to [place] for two months. hypertension Risk factors inc [...] vomiting. Additional Information Seen at [facility] on 12/02/18 for near syncope episode [...] lab test(s) General labs hypertension Additional infor juliette: patient states that she needs a refill [...] cracking noise when she opens her jaw. Instructions Date Instruction Additional Infor juliette Impression/Plan - SUALLY SIG CORTICAL CATARACTS OU NEEDS CAT SURGERYPOAG SUSPECT 2' TO LARGE CUPPING OD>OS WITH SMALLER DIAM ONH HIGH RISK IOP TODAY NEEDS WORKUP NO MEDICAL INSURANCE DWP TO APPLY FOR Postachio CATS REFER TO [facility] FOR CAT PRE OPPTERYGIUM OU OS APPROACHING VISUAL AXISKCS OU START FML BID OU START REFRESHgot blue shield since last apptpterygium os 3.6mm onto cornea likely needs removal Related to Combined forms of age-related cataract, bilateral Impression/Plan Related [...] weight loss. Related to Essential (primary) hypertension Dietary needs education Related to Dietary counseling and surveillance Lifestyle education regarding di et Related to Body mass index (BMI) 37.0-37.9, adult Giving encouragement to exercise Related to Body mass index (BMI) 37.0-37.9, adult Impression/Plan - SUALLY SIG CORTICAL CATARACTS OU NEEDS CAT SURGERYPOAG SUSPECT 2' TO LARGE CUPPING OD>OS WITH SMALLER DIAM ONH HIGH RISK IOP TODAY NEEDS WORKUP NO MEDICAL INSURANCE DWP TO APPLY FOR MEDI-CALCORT CATS REFER TO [facility] FOR CAT PRE OPPTERYGIUM OU OS APPROACHING VISUAL AXISKCS OU START FML BID OU START REFRESHREFER TO YSEC FOR CAT PRE OP AFTER GETS MEDI-ROMELIA RTC [place] IN 4 MTHS TO CHECK IN ON MEDI-ROMELIAPT IS APPLYING FOR MEDI-ROMELIA PT NEEDS EXPEDIATED APPLICATION PROCESS FOR PATIENT DUE TO NEEDING CATARACT SURGERY Related to Combined forms of age-related cataract, bilateral Continue Lisinopril [...] a psychiatrist, psychologist, nurse, or social work faculty member)--DeclinedSee someone right away if you want to hurt or kill yourself! If you ever feel like you might [...] a psychiatrist, psychologist, nurse, or social work faculty member)--Referred.See someone right away if you want to hurt or kill yourself! If you ever feel like you might [...] et Related to Dietary counseling and surveillance Lifestyle [...] months. Related to Hyperlipidemia, unspecified hyperlipidemia type Lifestyle education regarding di et Related to [...] 1 month. Related to Essential (primary) hypertension Lifestyle education [...] 1 month. Related to Obesity (BMI 30-39.9) Lifestyle education regarding di et Related to [...] or as needed. Related to Encntr for asbestos surveyor exam (general) (routine) w/o abn findings Lifestyle education regarding di et Related to Body mass index (BMI) 35.0-35.9, adult Giving encouragement to exercise Related to Body mass index (BMI) 35.0-35.9, adult Impression/Plan - PT ERYGIUM OU, MONITOR FOR CHANGE. NO SRX TODAY. FU 1YR. Related to Peripheral pterygium, progressive, bilateral Continue blood press ure [...] hepatotoxicity. Instructed NSAIDs are not indicated for long-term use. Instructed that this medication should not be taken with any other NSAID medications. Instructed to take with food. If s/s of bleeding, diarrhea, n/v, abdominal pain, or urinary problems occur stop medication immediately and call clinic. Patient verbalizes understanding of all instructions. Related to TMJ click Lifestyle education regarding di et Related to Body mass index (BMI) 29.0-29.9, adult Giving encouragement to exercise Related to Body mass index (BMI) 29.0-29.9, adult Assessments Type Assessment Date No Information
[2025-02-23 14:08] VITALS: BP 112/80; BMI 48.1
--- NOTE | 2025-02-23 14:08 | MHC.OFFVIS ---
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 No vaginal bleeding. Currently not sexually active in >30yrs. Denies any vaginal dryness or irritation. Attempting to eat a healthy diet with calcium and vitamin D, admits to having a sweet tooth and stays active with exercise. Last pap smear; 2021, negative. Last mammogram; 2023. Colonoscopy is UTD. Denies any family history of breast or ovarian. FH colon cancer. [facility] Medical History (Updated 02/23/25 @ 16:32 by Oumou Reaves CNM) Pain at surgical incision Urinary incontinence in female Stress incontinence Lumbar back pain with radiculopathy affecting left lower extremity GERD (gastroesophageal reflux disease) HTN (hypertension) Complex regional pain syndrome i of left lower limb Chronic pain syndrome Cardiac pacemaker in situ Cardiomyopathy Second degree AV block Allergies Osteoarthritis of left knee Spondylosis of lumbosacral spine with radiculopathy Back pain Surgical History History of hernia repair (~11/12/23) H/O gastric bypass Gastric bypass status for obesity Hx of cholecystectomy Hx of breast reduction, elective Hx of colonoscopy History of esophagogastroduodenoscopy (EGD) History of permanent cardiac pacemaker placement Family History Father Asthma Mother HTN (hypertension) Alzheimer disease Brother Cardiac pacemaker Sister Colon cancer Metastatic cancer Social History Household Members: None Housing: Apartment Do you presently have 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) Alcohol intake: former Comment: counts correct Patient Tobacco Use Status: Former Tobacco user Cigarette Packs Per Day: 0.5 e-Cigarette/Vaping Use: Never Used Advance Directives Date on File: 11/12/23 service: No 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al status: unemployed and disabled 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 Cognitive needs: No Hearing needs: No Vision needs: Yes Female Reproductive History Menstrual Total pregnancies: 3 Full term: 2 Number of Living Children: 2 Ab spontaneous: 1 Date of last pap smear: 02/12/22 (neg pap and hpv) Date of Mammogram: 03/31/24 (Birad 1) Review of Systems Const All systems reviewed & are unremarkable except as noted in HPI and below Reports as per HPI Eyes Reports no additional complaints ENT Reports no additional complaints Card Reports no additional complaints Resp Reports no additional complaints GI Reports as per HPI and Reports no additional complaints Reports as per HPI Musc Reports no additional complaints Skin/Breast Reports as per HPI Neuro Reports no additional complaints Psych Reports no additional complaints Endo Reports no additional complaints Osmin/Lymph Reports no additional complaints Aller/Immun Reports no additional complaints Physical Exam Vital Signs: Last Vital Signs BP 112/80 02/23/25 14:08 BMI result Body Mass Index 48.1 Const General: cooperative, healthy appearing, no acute distress, well developed and alert Orientation/consciousness: patient oriented x3 HEENT Head: Yes normal to inspection Eyes General: appearance normal, both eyes and all related structures Neck Neck: Yes normal visual inspection Thyroid: Thyroid normal Chest Other: bilateral reduction scarring. Chest palpation & inspection: normal inspection of the chest and other (no puckering, dimpling, peau de orange, retraction, discharge, masses) Breast/axilla inspection: normal inspection of the breasts Breast/axilla palpation: normal palpation of the breasts Resp Effort & Inspection: normal respiratory effort GI Inspection: Yes normal to inspection Palpation (GI): Soft to palpation Rectal Exam - Female: deferred General: Yes bladder normal to palpation External Female Exam: normal external appearance and normal appearance of the urethra Speculum Exam - Vagina: normal appearance of the vagina, normal palpation and normal vaginal discharge Speculum Exam - Cervix: normal appearance of the cervix and normal palpation Bimanual exam- vagina & uterus: normal bimanual exam, normal palpation, uterine size normal, bladder normal to palpation, normal palpation and non-tender Bimanual Exam- Adnexa, other: no masses Skin General skin exam: no rashes or lesions noted Rashes: no rashes Neuro General: patient oriented x3 Cognition (Neuro): normal cognition Extrem General: Yes normal to inspection Psych Attitude: cooperative Thought process: Normal thought process present Assessment & Plan Assessment & Plan (1) Pain in pelvis: Code(s): R10.2 - Pelvic and perineal pain Plan: Plan pelvic ultrasound and follow up in person for results. The patient expressed understanding and agreement with the plan of care. All of her questions and concerns were addressed to the best of my ability. Total time I personally spent on visit and management today: ?20 minutes. Time spent included review of pertinent office notes in the electronic health record; review of laboratory and imaging results; review of personal family medical history; performing physical exam; discussing diagnosis and plan of care with the patient; documenting the encounter in the EMR.IMPRESSION: Unremarkable uterus. No adnexal mass lesion (2) Encounter for well woman exam with routine gynecological exam: Code(s): Z01.419 - Encounter for gynecological examination (general) (routine) without abnormal findings Category: Medical Plan Discussed: Current recommendations for pap smears per ASCCP guidelines. Breast awareness, periodic self breast exams and yearly mammogram. Maintain a healthy lifestyle, well balanced diet including Calcium 1,200 mg and Vitamin D 600 IU daily, and routine exercise. Contact the office with any postmenopausal bleeding. Patient verbalizes understanding and agrees to the plan of care. She was given opportunity to ask questions and all questions were answered to the best of my ability. RTO in 1 year for annual field crop farmer exam. This note is constructed using voice recognition software. While every effort has been made to ensure accuracy, audience development manager errors may have been included. Orders: Orders US pelvic and transvaginal Today R10.2 - Pelvic and perineal pain Bacterial Vaginosis Panel Today R10.2 - Pelvic and perineal pain Coding Level of Care Code Est Pt Level 2 (59432) Est Pt Prev Care 40-64y(30316) Diagnoses Pain in pelvis R10.2 Encounter for well woman exam with routine gynecological exam Z01.419
== END 2025-02-23 14:54 | disposition home or self-care (01) ==
LOC: HO.HWS 13:56
PROVIDERS: PCP Internal Medicine; Visit Provider Advanced Practice Midwife
DX: R10.2 Pelvic and perineal pain (principal); Z01.419 Encounter for gynecological examination (general) (routine) without abnormal findings
CPT/HCPCS: 99212; 99396; 99459

== ENCOUNTER 2025-02-23 13:56 | Outpatient (REF) | payer OTHER, SELFPAY ==
[2025-02-23 16:16] LABS: Bacterial Vaginosis PCR NEGATIVE (Negative); Candida Group PCR NOT DETECTED (Not Detect); Candida glab krusei PCR DETECTED (Not Detect); Trichomonas vaginalis PCR NOT DETECTED (Not Detect)
== END 2025-02-23 13:57 | disposition home or self-care (01) ==
LOC: HO.LAB 13:56
PROVIDERS: PCP Internal Medicine; Visit Provider Advanced Practice Midwife
DX: Z01.411 Encounter for gynecological examination (general) (routine) with abnormal findings (principal); R10.2 Pelvic and perineal pain
CPT/HCPCS: 81515; 99212; 99396

== ENCOUNTER 2025-03-09 11:41 | Outpatient (AMB) | payer OTHER, SELFPAY ==
--- OUTSIDE RECORDS SUMMARY | 2025-03-07 05:56 | XMS_ITS | Continuity of Care Document ---
Author Organization [facility] e Address [address] [place] [id number] Phone Care Team Providers Care Senior Applications Engineer Name Role Phone Elyse Christiansen Unavailable Unavailable [...] Location Reason(s) For Visit Diagnoses Date Provider [facility], [address] [place] [address], [id number], [place] tel:[phone] [facility] No Information Cooper Pappas. [address], [place] [address], [place], [place], [id number], [place]. tel:[phone] [facility], [address] [place] [address], [id number], [place] tel:[phone] [facility] No Information 5 Cooper Pappas. [address], [place] [address], [place], [id number], [place]. tel:[phone] [facility], [address] [place] [address], [id number], [place] tel:[phone] [facility] 4m MED ck. (chief complaint) Combined forms of age-related cataract, bilateralPeripheral pterygium, progressive, bilateral 5 Garcia Jonna. [address], [place], [place], [id number], [place]. tel:[phone] [facility], [address] [place] [address], [id number], [place] tel:[phone] [facility] Medication Review/Polyph armacy (chief complaint)hyp ertension (chief complaint) Body mass index (BMI) 37.0-37.9, adultDietary counseling and surveillanceEssential (primary) hypertensionPrediabete sHyperlipidemia, unspecified hyperlipidemia type 5 Cooper Pappas. [address], [place], [place], [id number], [place]. tel:[phone] [facility], [address] [place] [address], [id number], [place] tel:[phone] [facility] x blurry va (chief complaint) Combined forms of age-related cataract, bilateral 5 Jose Coyle. [address], [place], [place], [id number], [place]. tel:[phone] [facility], [address] [place] [address], [id number], [place] tel:[phone] [facility] No Information 3 Lucas Montalvo. [address] [place] [address], [place], [id number], [place]. tel:[phone] [facility], [address] [place] [address], [id number], [place] tel:[phone] [facility] Growth (chief complaint)Whit wth (chief complaint) Peroneal ganglion cystChronic pain of right ankle 3 Michael Frankel. [address] [place] [address], [place], [id number], [place]. tel:[phone] [facility], [address] [place] [address], [id number], [place] tel:[phone] [facility] Follow Up of Depression (chief complaint)Fol low Up of hypertension (chief complaint) Body mass index (BMI) 35.0-35.9, adultDietary counseling and surveillanceEssential hypertensionModerate major depression 3 Lucas Montalvo. [address] [place] [address], [id number], [place]. tel:[phone] [facility], [address] [place] [address], [id number], [place] tel:[phone] [facility] Vitamin D insufficiency 3 Lucas Montalvo. [address] [place] [address], [id number], [place]. tel:[phone] [facility], [address] [place] [address], [id number], [place] tel:[phone] [facility] hypertension (chief complaint)dep ression (chief complaint) Body mass index (BMI) 34.0-34.9, adultDietary counseling and surveillanceModerate major depressionEssential hypertensionBreast cancer screening 3 Lucas Montalvo. [address] [place] [address], [place], [id number], [place]. tel:[phone] [facility], [address] [place] [address], [id number], [place] tel:[phone] [facility] Degenerative lumbar discRetrolisthesis of vertebrae 2 No Information [facility], [address] [place] [address], [id number], [place] tel:[phone] [facility] back pain (chief complaint) Body mass index (BMI) 35.0-35.9, adultChronic left-sided low back pain with left-sided sciatica 2 [employer]. [address], [place] [address], [place], [id number], [place]. tel:[phone] [facility], [address] [place] [address], [id number], [place] tel:[phone] [facility] UTI (chief complaint) Body mass index (BMI) 35.0-35.9, adultCystitisEssential (primary) hypertension 2 [employer], [address], [place], [place], [id number], [place]. tel:[phone] [facility], [address] [place] [address], [id number], [place] tel:[phone] [facility] hypertension (chief complaint) Body mass index (BMI) 35.0-35.9, adultEssential (primary) hypertension 0 No Information [facility], [address] [place] [address], [id number], [place] tel:[phone] [facility] hypertension (chief complaint) Body mass index (BMI) 35.0-35.9, adultHyperlipidemia, unspecified hyperlipidemia typeEssential (primary) hypertension 9 No Information [facility], [address] [place] [address], [id number], [place] tel:[phone] [facility] hypertension (chief complaint)ER Follow Up (chief complaint)Add itional Information (chief complaint) Body mass index (BMI) 35.0-35.9, adultEssential (primary) hypertensionIntermitte nt palpitations 9 No Information [facility], [address] [place] [address], [id number], [place] tel:[phone] [facility] Abnormal mammogram of right breast 9 No Information [facility], [address] [place] [address], [id number], [place] tel:[phone] [facility] Follow Up of Weight management (chief complaint)Add itional info (chief complaint) Body mass index (BMI) 35.0-35.9, adultHyperlipidemia, unspecified hyperlipidemia typeObesity (BMI 30-39.9) 9 No Information [facility], [address] [place] [address], [id number], [place] tel:[phone] [facility] annual exam (chief complaint) Body mass index (BMI) 35.0-35.9, adultEncntr for cable hooker exam (general) (routine) w/o abn findingsCervical cancer screeningBreast cancer screeningVaginal discharge 9 No Information [facility], [address] [place] [address], [id number], [place] tel:[phone] [facility] Ocular Discomfort (chief complaint) Peripheral pterygium, progressive, bilateral 9 Salomon Davian. [address] [place], [place], [id number], [place]. tel:[phone] [facility], [address] [place] [address], [id number], [place] tel:[phone] [facility] Obesity (chief complaint)Ski n lesion (chief complaint) Body mass index (BMI) 36.0-36.9, adultColon cancer screeningObesity (BMI 30-39.9)Venereal disease screeningNumerous skin molesConstipation, unspecified constipation typeEssential (primary) hypertension 9 No Information [facility], [address] [place] [address], [id number], [place] tel:[phone] [facility] Weight Management (chief complaint)Obe sity (chief complaint) PrediabetesBody mass index (BMI) 36.0-36.9, adultPterygium of both eyesObesity (BMI 30-39.9) 9 No Information UYA[facility], [address] [place] [address], [id number], tel:[phone] [employer] [facility] hypertension (chief complaint) Body mass index (BMI) 29.0-29.9, adultGERD with esophagitisEncounter for screening for nutritional disorderEssential (primary) hypertensionLeft anterior knee pain 8 No Information [facility], [address] [place] [address], [id number], [place] tel:[phone] [employer] [facility] Follow up on lab test(s) (chief complaint) Body mass index (BMI) 29.0-29.9, adultEssential (primary) hypertensionPrediabete sElevated LDL cholesterol levelVitamin D deficiency 8 No Information [facility], [address] [place] [address], [id number], [place] tel:[phone] [employer] [facility] est care (chief complaint)hyp ertension (chief complaint)hyp erlipidemia (chief complaint)jaw cracking (chief complaint) Adult general medical examDiabetes mellitus screeningEncounter for screening for cardiovascular disordersEncounter for screening for lipoid disordersEncounter for screening for nutritional disorderEncounter for screening for other suspected endocrine disorderEncounter for screening for malignant neoplasm of colonBody mass index (BMI) 29.0-29.9, adultEssential (primary) hypertensionTMJ click 8 No Information Family History Family Member Type Diagnosis Age At Onset Mother Problem (finding) hypertension Payers Payer name Insurance type Covered alliance party ID Authoriza tion(s) [facility] [id number] Social History Type Description Quantity Date Captured Comments Sex Female Smoking Status No Information Sexual Orientation Straight or heterosexual Aug Gender Identity Female Chief Complaint And Reason For Visit No Information Plan Of Treatment Date Type Action Status Goal Zoster vaccine ( 1st). Due on [...] Goal CT-Colonography. Due on due Goal Zoster vaccine. Due [...] Goal Zoster vaccine. Due on due Goal Influenza vaccin e. [...] due Goal FIT-DNA. Due on due Goal FIT. Due on due Goal Substance Abuse Screen. Due on due Goal Depression scree kathleen. Due on due Goal Hepatitis C scre ening. Due on due Goal FIT. Due on [...] due Goal HPV. Due on due Goal Depression scree kathleen. Due on due Goal Sigmoidoscopy. Due on due Goal Hep C Ab. Due on due Goal Td vaccine. Due on due Goal FOBT. Due on due Goal Vision Screen. Due on due Goal Lifestyle education regardin g diet completed Goal Lifestyle education regardin g diet completed Goal Unhealthy drug u se screening. Due [...] completed Goal Mammogram. Due on due Goal Depression [...] C scre ening. Due on due Goal FIT. Due on [...] vaccine ( ). Due on due Goal Vision Screen. Due [...] due Goal HPV. Due on due Goal Dietary manageme nt education, guidance, and counseling completed Goal Hep C Ab. Due on due Goal Mammogram. Due on 1 due Goal Pap/HPV testing. Due on due [...] completed Goal Sigmoidoscopy. Due on due Goal Vision [...] Td vaccine. Due on 19 due Goal Sigmoidoscopy. Due on due Goal Lifestyle education regardin g diet completed Goal Depression scree kathleen. Due on due Goal Hep C Ab. Due on due Goal Td vaccine. Due on 19 due Goal Pap/HPV testing. Due on due Goal Tdap. Due on due Goal Substance Abuse Screen. Due on due Goal FOBT. Due on due Goal Sigmoidoscopy. Due on due Goal HIV 1/0/2 Ag/Ab with Reflex. Due on due Goal Colonoscopy. Due on 019 due Goal Mammogram. Due on 9 due Goal Influenza vaccin e. Due on due Goal Dietary manageme nt [...] Referred To: Ordered: Referrals: Ophthalmology. . Location: [facility]. Consult ordered Referral Ordered: -Ophthalmology (related [...] Radiology Order Ma mmogram: Screening - Bilateral ([id number]), Ordered on: Ordered Future Order: Radiology Order X- ray L-Spine: 4-5 Views ([id number]), Added on: New Future Order: Lab Order CBC (INC LUDES DIFF/PLT) ([id number]), Sent on: Sent Future Order: Lab Order COMPREHE NSIVE METABOLIC PANEL ([id number]), Sent on: Sent Future Order: Lab Order LIPID PA SETH ([id number]), Sent on: Sent Future Order: Lab Order TSH W/RE FLEX TO FREE T4 ([id number]), Sent on: Sent Future Order: Lab Order VITAMIN D,25-OH,TOTAL,IA ([id number]), Sent on: Sent Future Order: Lab Order HEMOGLOB IN A1C ([id number]), Sent on: Sent Future Order: Lab Order MICROALB UMIN, RANDOM URINE (W/CREATININE) ([id number]), Sent on: Sent Future Order: Radiology Order Ul trasound, Breast, Complete ([id number]), Added on: New Future Order: Radiology Order Di gital Diagnostic Mammogram, Unilateral R ([id number]), Added on: New Future Order: Radiology Order Di gital Screening Mammogram, Bilateral ([id number]), Added on: New Future Order: Lab Order FECAL GL OBIN BY IMMUNOCHEMISTRY ([id number]), Ordered on: Ordered History Of Present Illness Encounter Date Complaint History Of Prese nt Illness 4m MED ck. Patient now has insurance to be scheduled for cat pre op at [facility], appointment was scheduled as a med [...] years ago. She was being seen in [place] for HTN and getting her medication there. [...] some weight recently. No family Hx of NV's or strokes, no heart problems. No family [...] ankle.Patient brought an Ultrasound report done in [place] on 2021.Patient complains the growth on her [...] for therapy. hypertension The HTN started in 2018. Risk factors include age over age 60, [...] due to not having insurance.Patient going to [place] for two months. hypertension Risk factors inc [...] disturbances and vomiting. Additional Information Seen at [facility] on 12/02/18 for near syncope episode lasting [...] NO MEDICAL INSURANCE DWP TO APPLY FOR [email or web address] CATS REFER TO [facility] FOR CAT PRE OPPTERYGIUM OU OS [...] Related to Dietary counseling and surveillance Impression/Plan - SUALLY SIG CORTICAL CATARACTS OU NEEDS CAT SURGERYPOAG SUSPECT 2' TO LARGE CUPPING OD>OS WITH SMALLER DIAM ONH HIGH RISK IOP TODAY NEEDS WORKUP NO MEDICAL INSURANCE DWP TO APPLY FOR MEDI-CALCORT CATS REFER TO [facility] FOR CAT PRE OPPTERYGIUM OU OS APPROACHING VISUAL AXISKCS OU START FML BID OU START REFRESHREFER TO [facility] FOR CAT PRE OP AFTER GETS MEDI-ROMELIA [...] (such as a psychiatrist, psychologist, nurse, or high school social science teacher)--DeclinedSee someone right away if you want to [...] (such as a psychiatrist, psychologist, nurse, or high school social science teacher)--Referred.See someone right away if you want to hurt or kill yourself! If you ever feel like you might hurt yourself or someone else, do one of these things:-Call your doctor or nurse and tell them it is urgent-Call for an ambulance (in the [place] and [place], dial )-Go to the emergency room at your local hospital-Call the [place] Suicide Prevention Lifeline: Related to Moderate major [...] or as needed. 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 Related to Prediabetes Dietary management e ducation, guidance, and counseling [...] hepatotoxicity. Instructed NSAIDs are not indicated for longterm use. Instructed that this medication should not [...]
[2025-03-09 11:42] VITALS: BP 115/65; PULSE 98; RESP 18; O2SAT 100; BMI 48.1
--- NOTE | 2025-03-09 11:42 | MHC.OFFVIS ---
Vital Signs 03/09/25 11:42 Height 5 ft 2 in Weight 263 lb BMI 48.1 BP 115/65 Blood Pressure Location Rt brachial Position Sitting Respiration 18 Pulse 98 Pulse Source Pulse Oximeter Pulse Oximetry (%) 100 Oxygen Delivery Method Room Air Intake Visit Reasons: Pill count Intake Note: Patient here for a pill count routine of Tramadol. Per direction patient should have 0 pills left. Patient presented with empty bottle 0 pills. Shot Core Drill Operator Helper Required: No Accompanied by: Self / Same As Patient Allergies adhesive tape Allergy (Intermediate, Verified 03/09/25 11:46) skin breakdown HPI Comments Details: Urvashi presents to the office today for follow up chronic pain and chronic opioid therapy management. Patient is prescribed Tramadol 50mg po BID as needed. Patient arrived today with the expectation of having 0 pills, she presented 0 pills which were counted in the presence of two staff members and returned to the patient in the original prescription bottle. This demonstrates responsible attitude toward patient's opioid medications. Pain is reported today as 2/10 and last dose of pain medication was taken yesterday morning.. Patient denies side effects including somnolence, constipation, itching, dyspnea, rash, dizziness or weakness. Patient reports 2 days ago she eats something that and agree with her stomach. She has been suffering with some diarrhea since. Due to this she has not taking her tramadol since yesterday morning. Denies any withdrawal symptoms. Past visit with Dr Ratliff: Urvashi is a very pleasant 57 year old female who presents to the office for follow up chronic pain and chronic opioid therapy management. Last time she was in this office and she was prescribed tramadol 50 mg t.i.d.. She came today with excess of her pills. She brought to us 30 pills from November a and 20 pills from last month. She supposed to have no pills today in her possession. [facility] liver prescribed to much of the pills for her. We agreed that from now on I will be prescribing her to pills a day. We destroyed pills from November. That left her with 21 pills for this month and. I will restart her medication in 10 days from now which will be 05/09/2023. After we will establish that she is okay with his her medication prescriptions I will continue to see her once in 2 months for the appointments and pill counts. Patient denies any side effects including constipation, abdominal pain, somnolence, nausea, dizziness or falls. She previously had SCS trial with stimwave but did not tolerate, does not want to proceed with SCS at this time. Previously: She? went with me on transforaminal epidural spinal cord stimulator with stim wave technology.? After the procedure? she reported pain exacerbation in radicular distribution she reported numbness in left lower extremity.? During the procedure the insertion of the stimulating wires was quite difficult probably due to foraminal stenosis on those sites.? Her physical exam did not demonstrate any significant roots see below.? The CT scan which was performed to her in the emergency room did not demonstrate any hematoma or any peripheral nerve damage.? She went for EMG done by Dr. Whitfield.? Only peripheral neuropathy was found on EMG.? There were no acute radiculopathy secondary to needle penetration to the nerve roots.? The patient was treated with gabapentin and short course steroid therapy.? She reports that numbness is improving now.? She supposed to go for Shoozy trial of spinal cord stimulator as we planned before...,.? [facility] Medical History (Updated 02/23/25 @ 16:32 by Oumou Reaves CNM) Pain at surgical incision Urinary incontinence in female Stress incontinence Lumbar back pain with radiculopathy affecting left lower extremity GERD (gastroesophageal reflux disease) HTN (hypertension) Complex regional pain syndrome i of left lower limb Chronic pain syndrome Cardiac pacemaker in situ Cardiomyopathy Second degree AV block Allergies Osteoarthritis of left knee Spondylosis of lumbosacral spine with radiculopathy Back pain Surgical History History of hernia repair (~11/12/23) H/O gastric bypass Gastric bypass status for obesity Hx of cholecystectomy Hx of breast reduction, elective Hx of colonoscopy History of esophagogastroduodenoscopy (EGD) History of permanent cardiac pacemaker placement Family History Father Asthma Mother HTN (hypertension) Alzheimer disease Brother Cardiac pacemaker Sister Colon cancer Metastatic cancer Social History Household Members: None Housing: Apartment Do you presently have visiting nurse or other home services: Yes (NP) Alcohol intake: former Comment: counts correct Patient Tobacco Use Status: Former Tobacco user Cigarette Packs Per Day: 0.5 e-Cigarette/Vaping Use: Never Used Advance Directives Date on File: 11/12/23 service: No 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al status: unemployed and disabled 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 Cognitive needs: No Hearing needs: No Vision needs: Yes Review of Systems Const All systems reviewed & are unremarkable except as noted in HPI and below Physical Exam Vital Signs: Last Vital Signs Pulse 98 03/09/25 11:42 Resp 18 03/09/25 11:42 BP 115/65 03/09/25 11:42 Pulse Ox 100 03/09/25 11:42 Oxygen Delivery Method Room Air 03/09/25 11:42 BMI result Body Mass Index 48.1 General: awake, alert, oriented. Answers questions appropriately. Fully engaged in examination. Skin: warm, dry, intact without visible rashes or lesions. HEENT: Normocephalic. Hearing intact. Cardiac: External chest normal in appearance. BLE pitting edema. Respiratory: No cough, audible wheezing or stridor. Abdomen: without gross distension. MS: No obvious swelling or deformities. Able to transition from sit to stand unassisted. Neurological: Oriented to person, place, time and situation. Thought process intact. Ambulates with cane for assistance. Psychiatric: Appropriate mood and affect. Good judgment and insight. Const Other: Results Reviewed Results Reviewed: 11/05/2021 EXAMINATION: CT LUMBAR SPINE WITHOUT CONTRAST FINDINGS: The heights of the lumbar vertebrae are well-maintained. Subtle grade 1 anterolisthesis of L4 over L5. Mild facet joint arthritic changes are noted at the lower lumbar spine. Posterior appendages are intact.? No evidence of any fracture present. No evidence of any paraspinal, soft tissue hematoma present. The visualized retroperitoneum grossly appears unremarkable. Significant motion artifacts are present. IMPRESSION: No CT evidence of any compression fracture or paraspinal hematoma. Mild grade 1 anterolisthesis of L4 over L5 and facet joint arthritic changes at lower lumbar spine. Assessment & Plan Assessment & Plan (1) Hip pain, left: Code(s): M25.552 - Pain in left hip Category: Medical (2) Lumbar pain: Code(s): M54.5 - Low back pain Category: Medical (3) Osteoarthritis of left hip: Code(s): M16.12 - Unilateral primary osteoarthritis, left hip Category: Medical Qualifiers: Osteoarthritis type: primary Qualified Code(s): M16.12 - Unilateral primary osteoarthritis, left hip (4) Spondylosis of lumbosacral spine with radiculopathy: Code(s): M47.27 - Other spondylosis with radiculopathy, lumbosacral region Category: Medical (5) Chronic pain syndrome: Code(s): G89.4 - Chronic pain syndrome Category: Medical (6) Complex regional pain syndrome i of left lower limb: Code(s): G90.522 - Complex regional pain syndrome I of left lower limb Category: Medical Plan Masspat was reviewed and without concerns. No obvious signs of diversion, abuse or misuse of the opioid medications. Refill sent for Tramadol 50mg po BID prn with 1 refill. Patient to follow-up in the office in 2 months, sooner if needed. All questions and concerns have been answered and patient agrees with the plan. Stimwave trial L2-L3 L3-L4 done previously but patient reported increased numbness to lateral left thigh. Post procedure CT and EMG were completed which did not demonstrate evidence of acute pathology or radiculopathy. EMG did show evidence of peripheral neuropathy. Due to the side effects, neuropathy and interaction with her pacemaker she does not want to proceed with SCS at this time. Coding Level of Care Code Est Pt Level 3 (86888) Complex EM visit Add On G2211 Diagnoses Hip pain, left M25.552 Lumbar pain M54.5 Primary osteoarthritis of left hip M16.12 Osteoarthritis type: primary Spondylosis of lumbosacral spine with radiculopathy M47.27 Chronic pain syndrome G89.4 Complex regional pain syndrome i of left lower limb G90.522
--- OUTSIDE RECORDS SUMMARY | 2025-03-09 12:52 | XMS_ITS | Clinical Summary ---
Author Organization [employer] Address [address] [facility] [address] [place] [address] Care Team Providers Care Substation Wireman Name Role Phone Skyler Whitfield Primary Care Provider [phone] Allergies Active Allergy Reactions Criticality Noted Date [...] Active beta carotene (vitamin A) 3 MG (01600 UT) capsule TOME 2 C PSULAS POR [...] TIMES A WEEK - APPLY AT BEDTIME, MON/URS 4 Active cholecalciferol 50 MCG (1999 UT) capsule TOME CELY C PSULA TODOS LOS D 3 Active cetirizine (ZyrTEC) 10 MG tablet TAKE 1 TABLET BY MOUTH DAILY NEEDED FOR ITCHING OR SNEEZING. 4 Active furosemide (Lasix) 20 MG tablet 20 mg. 4 Active Active Problems No known active problems Encounters Date Type Department Care Team Description 02/16/2025 11:00 AM EDT Office Visit [facility] ADULT DENTAL [address] [place] [address] Susan Ng from Last 3 Months Social History Tobacco Use Types Packs/Day Years [...] Reading Time Taken Comments Blood Pressure 132/80 02/16/2025 11:12 AM EDT Pulse 94 02/16/2025 11:12 AM EDT Temperature - - Respiratory Rate - - [...] HPV/Cotest 1994 Mammogram 2004 COVID-19 Vaccine ( season) 2024 08/20/2021, 11/29/2020, 11/08/2020 Dental Prophylaxis 06/19/2024 12/18/2023, 11/01/2008 Pneumococcal Vaccine: 50+ Years (2 of 2 - PCV) 02/10/2025 02/11/2024 Influenza Vaccine (#1) 2025 , 11/12/2023, 08/20/2021 Dental Oral Exam 08/19/2025 02/16/2025, , 08/26/2017 Tobacco Screening 02/16/2026 02/16/2025 Dental X-Ray: Bitewings 02/17/2026 02/17/20 25, 11/26/2023, 08/26/2017, Additional history exists Dental X-Ray: Full Mouth 11/26/2026 024, 10/16/2023, 08/26/2017 DTaP/Tdap/Td Vaccines (2 - Td or Tdap) 10/15/2033 10/15/2023 RSV Patients and Patients Aged 60 years or older (1 - 1-dose 75+ series) 2039 Zoster Vaccines Completed 04/30/2024, 02/11/2024 HIB Vaccines Aged Out No longer eligi [...] Procedure Name Priority Date/Time Associated Diagnosis Comments PERIODIC ORAL EVALUATION - ESTABLISHED PATIENT Routine 02/16/2025 11:00 AM EDT INTRAORAL - PERIAPICAL EACH ADDITIONAL RADIOGRAPHIC IMAGE Routine 02/16/2025 11:00 AM EDT INTRAORAL - PERIAPICAL FIRST RADIOGRAPHIC IMAGE Routine 02/16/2025 11:00 AM EDT BITEWINGS - 4 RADIOGRAPHIC IMAGES Routine 02/16/2025 11:00 AM EDT CASE PRESENTATION, DETAILED AND EXTENSIVE TREATMENT PLANNING Routine 02/16/2025 11:00 AM EDT PROPHYLAXIS - ADULT Routine 12/18/2023 3 :00 PM EDT Periodontal disease Subgingival dental calculus Dental plaque INTRAORAL - COMPLETE SERIES OF RADIOGRAPHIC IMAGES Routine 11/26/2023 10:30 AM EDT Periodontal disease Dental caries from Last 3 Months or Most Recently Relevant to Health Maintenance Insurance D[facility]AL-[facility] MEDICAID STAND ADULT Care Teams Substation Wireman Relationship Specialty Start Date End Date Skyler Whitfield 1962 [place] [address] PCP - General 02/16/25
== END 2025-03-09 12:01 | disposition home or self-care (01) ==
LOC: HO.PMC 11:41
PROVIDERS: PCP Internal Medicine; Visit Provider Registered Nurse Emergency
DX: M25.552 Pain in left hip (principal); M54.50 Low back pain, unspecified; M16.12 Unilateral primary osteoarthritis, left hip; M47.27 Other spondylosis with radiculopathy, lumbosacral region; G89.4 Chronic pain syndrome; G90.522 Complex regional pain syndrome I of left lower limb
CPT/HCPCS: 99213; G2211

== ENCOUNTER → 2025-03-09 11:41 | Outpatient (BNVA) | payer OTHER, SELFPAY | PROVIDERS: PCP Internal Medicine; Visit Provider Registered Nurse Emergency | DX: M25.552 Pain in left hip (principal); M16.12 Unilateral primary osteoarthritis, left hip; M47.27 Other spondylosis with radiculopathy, lumbosacral region; G89.4 Chronic pain syndrome; G90.522 Complex regional pain syndrome I of left lower limb | CPT/HCPCS: 99212 ==

== ENCOUNTER 2025-03-28 09:03 | Outpatient (AMB) | payer OTHER, SELFPAY ==
[2025-03-28 09:11] VITALS: BMI 48.1
--- NOTE | 2025-03-28 09:11 | A.OFFVIS_ITS ---
Vital Signs 03/28/25 09:11 Height 5 ft 2 in Weight 263 lb BMI 48.1 Intake Visit Reasons: Inj-B/L knee inj last injection 12/27/24 Intake Note: Urvashi is a 59 year old female who presents today for bilateral knee injections, last injection done bilaterally on 12/27/24. Patient reports last injection went well, lasted for 3 months. Would like to have injection on both knees. Allergies adhesive tape Allergy (Intermediate, Verified 03/28/25 09:15) skin breakdown HPI HPI Inj-B/L knee inj last injection 12/27/24: Details: Urvashi comes in today with continued bilateral knee pain. She has noted however that the last injections were very helpful for her. She had a extended relief that lasted up until about a month ago. [facility] Medical History (Updated 02/23/25 @ 16:32 by Oumou Reaves CNM) Pain at surgical incision Urinary incontinence in female Stress incontinence Lumbar back pain with radiculopathy affecting left lower extremity GERD (gastroesophageal reflux disease) HTN (hypertension) Complex regional pain syndrome i of left lower limb Chronic pain syndrome Cardiac pacemaker in situ Cardiomyopathy Second degree AV block Allergies Osteoarthritis of left knee Spondylosis of lumbosacral spine with radiculopathy Back pain Surgical History History of hernia repair (~11/12/23) H/O gastric bypass Gastric bypass status for obesity Hx of cholecystectomy Hx of breast reduction, elective Hx of colonoscopy History of esophagogastroduodenoscopy (EGD) History of permanent cardiac pacemaker placement Family History Father Asthma Mother HTN (hypertension) Alzheimer disease Brother Cardiac pacemaker Sister Colon cancer Metastatic cancer Social History Household Members: None Housing: Apartment Do you presently have visiting nurse or other home services: Yes (PATCH SANDER) Alcohol intake: former Comment: counts correct Patient Tobacco Use Status: Former Tobacco user Cigarette Packs Per Day: 0.5 e-Cigarette/Vaping Use: Never Used Advance Directives Date on File: 11/12/23 service: No 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al status: unemployed and disabled 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 Cognitive needs: No Hearing needs: No Vision needs: Yes Physical Exam Vital Signs: BMI result Body Mass Index 48.1 Extrem Other: Pleasant woman no acute distress. Medial joint line ttp bilaterally Skin is clean dry and intact Palpable pedal pulses Office Procedures Joint Inj/Aspir; Non-Pain Clin Joint Injection/Drain Details: Injected 1 mL of Decadron and 3 mL 1% lidocaine and 3 mL of 0.25% Marcaine. Site was prepped using aseptic technique. Patient tolerated the procedure well. Shoulders, Hips, Knees, Knee Large Joint Injection : Bilateral Knee Coding Procedure code (CPT) selection complete Assessment & Plan Assessment & Plan (1) Primary osteoarthritis of knees, bilateral: Code(s): M17.0 - Bilateral primary osteoarthritis of knee Category: Medical Plan: This is a 59-year-old woman with bilateral knee osteoarthritis. She is not currently a surgical candidate. I injected bilateral knees. She can follow up in a 46 months for repeat injections. I recommend continue activity and weight loss. Coding Level of Care Code Est Pt Level 3 (03883) Diagnoses Primary osteoarthritis of knees, bilateral M17.0 CPT Codes Shoulders, Hips, Knees, - Knee Large Joint Injection : Bilateral Knee ([id number])
--- OUTSIDE RECORDS SUMMARY | 2025-03-28 09:51 | XMS_ITS | Clinical Summary ---
Author Organization [employer] Address [address] [facility] 7t [place] [address] Care Team Providers Care Manager Transit Name Role Phone Skyler Whitfield Primary Care Provider [phone] Allergies Active Allergy Reactions Criticality Noted Date [...] Active beta carotene (vitamin A) 3 MG (93197 UT) capsule TOME 2 C PSULAS POR [...] TIMES A WEEK - APPLY AT BEDTIME, FRI/ 4 Active cholecalciferol 50 MCG (1999 UT) capsule TOME CELY C PSULA TODOS LOS D 3 Active cetirizine (ZyrTEC) 10 MG tablet TAKE 1 TABLET BY MOUTH DAILY NEEDED FOR ITCHING OR SNEEZING. 4 Active furosemide (Lasix) 20 MG tablet 20 mg. 4 Active Active Problems No known active problems Encounters Date Type Department Care Team Description 02/16/2025 11:00 AM EDT Office Visit [facility] ADULT D[facility] [address] [place] [address] uSsan Ng from Last 3 Months Social History [...] Care Team (Late st Contact Info) Description 04/28/2025 3:30 PM EDT Office Visit [facility]ULT [facility] [address] [place] [address] Elfego Georges DDS [address] [place] [address] Health Maintenance Due Date Last Done Comments [...] Most Recently Relevant to Health Maintenance Insurance DENTAL-[facility] MEDICAID STAND ADULT Care Teams Manager Transit Relationship Specialty Start Date End Date Skyler Whitfield [facility] [place] [address] PCP - General 02/16/25
== END 2025-03-28 09:55 | disposition home or self-care (01) ==
LOC: HO.HOS 09:10
PROVIDERS: PCP Internal Medicine; Visit Provider Orthopaedic Surgery
DX: M17.0 Bilateral primary osteoarthritis of knee (principal)
CPT/HCPCS: 20610; 99213

== ENCOUNTER → 2025-03-28 09:03 | Outpatient (BNVA) | payer OTHER, SELFPAY | PROVIDERS: PCP Internal Medicine; Visit Provider Orthopaedic Surgery | DX: M17.0 Bilateral primary osteoarthritis of knee (principal) | CPT/HCPCS: 20610; 99212; J0665; J1100; J2003 ==

== ENCOUNTER → 2025-03-28 23:59 | Outpatient (BNV) | payer OTHER, SELFPAY ==
--- NOTE | 2025-03-29 15:27 | MHC.OFFVIS ---
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- [employer] Allergies adhesive tape Allergy (Intermediate, Verified 03/28/25 09:15) skin breakdown PFSH Medical History (Updated 02/23/25 @ 16:32 by Oumou Reaves CNM) Pain at surgical incision Urinary incontinence in female Stress incontinence Lumbar back pain with radiculopathy affecting left lower extremity GERD (gastroesophageal reflux disease) HTN (hypertension) Complex regional pain syndrome i of left lower limb Chronic pain syndrome Cardiac pacemaker in situ Cardiomyopathy Second degree AV block Allergies Osteoarthritis of left knee Spondylosis of lumbosacral spine with radiculopathy Back pain Surgical History History of hernia repair (~11/12/23) H/O gastric bypass Gastric bypass status for obesity Hx of cholecystectomy Hx of breast reduction, elective Hx of colonoscopy History of esophagogastroduodenoscopy (EGD) History of permanent cardiac pacemaker placement Family History Father Asthma Mother HTN (hypertension) Alzheimer disease Brother Cardiac pacemaker Sister Colon cancer Metastatic cancer Social History Household Members: None Housing: Apartment Do you presently have visiting nurse or other home services: Yes (OBSTETRICS TECHNICIAN) Alcohol intake: former Comment: counts correct Patient Tobacco Use Status: Former Tobacco user Cigarette Packs Per Day: 0.5 e-Cigarette/Vaping Use: Never Used Advance Directives Date on File: 11/12/23 service: No 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al status: unemployed and disabled 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 Cognitive needs: No Hearing needs: No Vision needs: Yes Office Procedures Cardiac Device Check Cardiac Device Check Details: Remote pacemaker report generated 03/28/2025. Biventricular pacing 96% of time. Pacemaker function is adequate [id number] Cardiac Device Interrogation, pacemaker Procedure code (CPT) selection complete Assessment & Plan Assessment & Plan (1) Biventricular cardiac pacemaker in situ: Code(s): Z95.0 - Presence of cardiac pacemaker Category: Medical Plan: See above Coding Level of Care Code Procedure Only Diagnoses Biventricular cardiac pacemaker in situ Z95.0 CPT Codes Cardiac Device Check - Cardiac Device 12: [id number] Cardiac Device Interrogation, pacemaker ([id number])
== END ==
PROVIDERS: PCP Internal Medicine; Visit Provider Internal Medicine Cardiovascular Disease
DX: Z45.018 Encounter for adjustment and management of other part of cardiac pacemaker (principal)
CPT/HCPCS: 93294

== ENCOUNTER 2025-04-01 13:02 | Outpatient (REF) | payer OTHER, SELFPAY ==
--- NOTE | ~2025-04-01 | US_ITS ---
CLINICAL HISTORY: R10.2 - Pelvic and perineal pain --- Additional Notes or Special Instructions: left sided pelvic pain US pelvis transabdominal and transvaginal with color Doppler Comparison: Prior relevant studies were not available at the time of interpretation Findings: Transabdominal scanning performed for overall anatomy. Transvaginal scanning performed for additional detail. LMP: Postmenopausal Anteverted uterus, diminutive in size normal in echotexture measuring 6.5 x 3.2 x 4.6 cm. Nabothian cysts with calcifications in the cervix. Well defined endometrium, measuring 2.0 mm in thickness. Fibroid: Superior fundal subserosal 0.7 x 0.6 x 0.6 cm The right ovary measures 2.1 x 1.5 x 1.7 cm. Normal sonographic appearance right ovary. The left ovary measures 2.4 x 1.8 x 1.7 cm. Normal sonographic appearance left ovary. No adnexal masses or fluid collections. No free fluid Impression: 1. Postmenopausal uterine atrophy with subserosal fibroid. 2. Normal thickness endometrium. 3. Normal ovaries/adnexa. This document has been electronically signed by: Baltazar Pimentel MD on 04/02/2025 15:51:29
--- OUTSIDE RECORDS SUMMARY | 2025-04-01 13:07 | XMS_ITS | Clinical Summary ---
Author Organization [employer] Address [address] [facility] 7[address] [place] [address] Care Team Providers Care Gill Net Stringer Name Role Phone Skyler Whitfield Primary Care Provider [phone] Allergies Active Allergy Reactions Criticality Noted Date [...] Active beta carotene (vitamin A) 3 MG (87251 UT) capsule TOME 2 C PSULAS POR [...] Description 02/16/2025 11:00 AM EDT Office Visit [facility] ADULT DENTAL [address] [place] [address] Susan Ng from Last 3 Months Social [...] Description 04/28/2025 3:30 PM EDT Office Visit [facility] ADULT DENTAL [address] [place] [address] Elfego Georges DDS [address] [place] [address] Health Maintenance Due Date Last Done Comments [...] Most Recently Relevant to Health Maintenance Insurance [facility]AL-[facility] MEDICAID STAND ADULT Care Teams Gill Net Stringer Relationship Specialty Start Date End Date Skyler Whitfield [facility] [place] [address] PCP - General 02/16/25
== END 2025-04-01 13:03 | disposition home or self-care (01) ==
LOC: HO.US 13:02
PROVIDERS: PCP Internal Medicine; Visit Provider Advanced Practice Midwife
DX: R10.2 Pelvic and perineal pain (principal)
CPT/HCPCS: 76830; 76856

== ENCOUNTER → 2025-04-01 13:04 | Outpatient (BNV) | payer OTHER, SELFPAY | PROVIDERS: PCP Internal Medicine; Visit Provider Radiology Diagnostic Radiology | DX: D25.2 Subserosal leiomyoma of uterus (principal) | CPT/HCPCS: 76830; 76856 ==

== ENCOUNTER → 2025-04-08 11:42 | Outpatient (BNVA) | payer OTHER, SELFPAY | PROVIDERS: PCP Internal Medicine | DX: Z02.89 Encounter for other administrative examinations (principal) | CPT/HCPCS: 99211 ==

== ENCOUNTER 2025-04-14 14:38 | Outpatient (REF) | payer OTHER, SELFPAY ==
--- NOTE | ~2025-04-14 | MM_ITS ---
EXAMINATION: MM SCREENING DIGITAL BREAST TOMOSYNTHESIS, BILATERAL CLINICAL INFORMATION: Screening. Asymptomatic. COMPARISON: Mammography: Comparison is made with available priors TECHNIQUE: Digital breast mammography with tomosynthesis is performed in both the craniocaudal and mediolateral oblique views along with computer-aided detection (CAD). FINDINGS: There are scattered areas of fibroglandular density (ACR BI-RADS breast composition Category b). Bilateral reduction mammoplasty. Pacemaker overlies and obscures the superior posterior left breast on MLO view. There are no significant masses, abnormal calcifications, or other abnormalities. MM/MM tomosynthesis screening BI IMPRESSION: No mammographic evidence of malignancy. ASSESSMENT: BI-RADS BI-RADS 2 - Benign Findings RECOMMENDATION: Routine annual mammography screening. 1 year F/U This examination should not preclude the clinical evaluation of a suspicious palpable abnormality. This patient's information was entered into a reminder system with a target due date for their next mammogram. Electronically signed by: Claudine Mauricio DO 04/19/2025 02:00 PM EDT
--- OUTSIDE RECORDS SUMMARY | 2025-04-14 15:18 | XMS_ITS | Clinical Summary ---
Author Organization [employer] Address [address] [facility] 7t [place] [address] Care Team Providers Care Equipment Operator Name Role Phone Skyler Whitfield Primary Care Provider [phone] Allergies Active Allergy Reactions Criticality Noted Date [...] Active beta carotene (vitamin A) 3 MG (85845 UT) capsule TOME 2 C PSULAS POR [...] Description 02/16/2025 11:00 AM EDT Office Visit [facility] ADULT DENTAL [address] [place] [address] Susan Ng from Last 3 Months Social [...] Description 04/28/2025 3:30 PM EDT Office Visit [facility] ADULT DENTAL [address] [place] [address] Elfego Georges DDS [address] [place] [address] Health Maintenance Due Date Last Done Comments [...] DENTAL-[facility] MEDICAID STAND ADULT Care Teams Equipment Operator Relationship Specialty Start Date End Date Skyler Whitfield [facility] [place] [address] PCP - General 02/16/25
== END 2025-04-14 14:39 | disposition home or self-care (01) ==
LOC: HO.MAMMO 14:38
PROVIDERS: PCP Internal Medicine; Visit Provider Internal Medicine
DX: Z12.31 Encounter for screening mammogram for malignant neoplasm of breast (principal)
CPT/HCPCS: 77063; 77067

== ENCOUNTER → 2025-04-14 15:00 | Outpatient (BNV) | payer OTHER, SELFPAY | PROVIDERS: PCP Internal Medicine; Visit Provider Internal Medicine | DX: Z12.31 Encounter for screening mammogram for malignant neoplasm of breast (principal) | CPT/HCPCS: 77063; 77067 ==

== ENCOUNTER 2025-04-21 14:23 | Outpatient (AMB) | payer OTHER, SELFPAY ==
--- NOTE | 2025-04-21 14:26 | A.OFFVIS_ITS ---
Intake Visit Reasons: ultrasound follow up Tractor Sweeper Driver Required: Yes Tractor Sweeper Driver Language: Mental Health Worker Services: Tractor Sweeper Driver Present Tractor Sweeper Driver Name: Kenia Information Interpreted: non-clinical & clinical Managing Supervisor: Managing Supervisor Present Allergies adhesive tape Allergy (Intermediate, Verified 04/21/25 14:27) skin breakdown Is last menstrual period known: Yes HPI Comments Details: Patient is here today for a follow up pelvic ultrasound, history of chronic pelvic pain. She reports chronic pelvic pain, back pain and neuropathy. [facility] Medical History (Updated 04/21/25 @ 14:39 by Oumou Reaves CNM) Fibroid Pain at surgical incision Urinary incontinence in female Stress incontinence Lumbar back pain with radiculopathy affecting left lower extremity GERD (gastroesophageal reflux disease) HTN (hypertension) Complex regional pain syndrome i of left lower limb Chronic pain syndrome Cardiac pacemaker in situ Cardiomyopathy Second degree AV block Allergies Osteoarthritis of left knee Spondylosis of lumbosacral spine with radiculopathy Back pain Surgical History History of hernia repair (~11/12/23) H/O gastric bypass Gastric bypass status for obesity Hx of cholecystectomy Hx of breast reduction, elective Hx of colonoscopy History of esophagogastroduodenoscopy (EGD) History of permanent cardiac pacemaker placement Family History Father Asthma Mother HTN (hypertension) Alzheimer disease Brother Cardiac pacemaker Sister Colon cancer Metastatic cancer Social History Household Members: None Housing: Apartment Do you presently have visiting nurse or other home services: Yes (VP DIRECTOR OF CREATIVE STRATEGY) Alcohol intake: former Comment: counts correct Patient Tobacco Use Status: Former Tobacco user Cigarette Packs Per Day: 0.5 e-Cigarette/Vaping Use: Never Used Advance Directives Date on File: 11/12/23 service: No 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al status: unemployed and disabled 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 Cognitive needs: No Hearing needs: No Vision needs: Yes Review of Systems Const All systems reviewed & are unremarkable except as noted in HPI and below Endo Reports no additional complaints Physical Exam Const General: cooperative, healthy appearing and no acute distress Psych Appearance: well kempt Attitude: cooperative Thought process: Normal thought process present Results Reviewed Results Reviewed: [place] [address] Ultrasound Report Signed Patient: Urvashi Torres MR#: [id number] : 1965 Acct:[id number] Age/Sex: 59 / F ADM Date: 04/01/25 Loc: HO.US Attending Dr: Oumou Reaves CNM Ordering Physician: Oumou Reaves CNM Date of Service: 04/01/25 Procedure(s): US pelvic and transvaginal Accession Number(s): [id number] cc: Skyler Whitfield MD; Oumou Reaves CNM~ CLINICAL HISTORY: R10.2 - Pelvic and perineal pain --- Additional Notes or Special Instructions: left sided pelvic pain US pelvis transabdominal and transvaginal with color Doppler Comparison: Prior relevant studies were not available at the time of interpretation Findings: Transabdominal scanning performed for overall anatomy. Transvaginal scanning performed for additional detail. LMP: Postmenopausal Anteverted uterus, diminutive in size normal in echotexture measuring 6.5 x 3.2 x 4.6 cm. Nabothian cysts with calcifications in the cervix. Well defined endometrium, measuring 2.0 mm in thickness. Fibroid: Superior fundal subserosal 0.7 x 0.6 x 0.6 cm The right ovary measures 2.1 x 1.5 x 1.7 cm. Normal sonographic appearance right ovary. The left ovary measures 2.4 x 1.8 x 1.7 cm. Normal sonographic appearance left ovary. No adnexal masses or fluid collections. No free fluid Impression: 1. Postmenopausal uterine atrophy with subserosal fibroid. 2. Normal thickness endometrium. 3. Normal ovaries/adnexa. This document has been electronically signed by: Baltazar Pimentel MD on 04/02/2025 15:51:29 Dictated By: Baltazar Pimentel MD Signed By: <Electronically signed by Baltazar Pimentel MD in OV> 04/02/25 1552 DD/ 155 TD/TT: 04/02/251550 Plant And Maintenance Technician: Assessment & Plan Assessment & Plan (1) Fibroid: Code(s): D21.9 - Benign neoplasm of connective and other soft tissue, unspecified Category: Medical Plan Discussed: US findings- Impression: 1. Postmenopausal uterine atrophy with subserosal fibroid. 2. Normal thickness endometrium. 3. Normal ovaries/adnexa. Stable fibroid. Normal endo lining. No need for a follow up at this time. Advised to call if there is any postmenopausal bleeding or other concerns. Pelvic pain can be caused by multiple origins, if pain worsens or she has any a concern to follow up with her PCP. Appointment for 03/2026. The patient expressed understanding and agreement with the plan of care. All of her questions and concerns were addressed to the best of my ability. This note is constructed using voice recognition software. While every effort has been made to ensure accuracy, transcription typist errors may have been included. Coding Level of Care Code Est Pt Level 3 (10362) Diagnoses Fibroid D21.9
--- OUTSIDE RECORDS SUMMARY | 2025-04-21 14:31 | XMS_ITS | Clinical Summary ---
Author Organization [employer] Address [address] [facility] 7t [place] [address] Care Team Providers Care Medicinal Chemist Name Role Phone Skyler Whitfield Primary Care Provider [phone] Allergies Active Allergy Reactions Criticality Noted Date [...] Active beta carotene (vitamin A) 3 MG (63001 UT) capsule TOME 2 C PSULAS POR [...] Description 02/16/2025 11:00 AM EDT Office Visit [facility] ADULT DENTAL [address] [place] [address] Susan Ng from Last 3 Months Social [...] Description 04/28/2025 3:30 PM EDT Office Visit [facility] ADULT DENT[facility] [address] [place] [address] Elfego Georges DDS [address] [place] [address] Health Maintenance Due Date Last Done Comments [...] Most Recently Relevant to Health Maintenance Insurance DENTAL-[facility] MEDICAID STAND ADULT Care Teams Medicinal Chemist Relationship Specialty Start Date End Date Skyler Whitfield [facility] [place] [address] PCP - General 02/16/25
== END 2025-04-21 15:00 | disposition home or self-care (01) ==
LOC: HO.HWS 14:23
PROVIDERS: PCP Internal Medicine; Visit Provider Advanced Practice Midwife
DX: D21.9 Benign neoplasm of connective and other soft tissue, unspecified (principal)
CPT/HCPCS: 99213

== ENCOUNTER → 2025-04-21 14:23 | Outpatient (BNVA) | payer OTHER, SELFPAY | PROVIDERS: PCP Internal Medicine; Visit Provider Advanced Practice Midwife | DX: Z71.2 Person consulting for explanation of examination or test findings (principal); R10.2 Pelvic and perineal pain; D25.2 Subserosal leiomyoma of uterus | CPT/HCPCS: 99212 ==

== ENCOUNTER 2025-05-17 13:47 | Outpatient (AMB) | payer OTHER, SELFPAY ==
[2025-05-17 13:49] VITALS: BP 120/80; PULSE 91; O2SAT 97; BMI 47.9
--- NOTE | 2025-05-17 13:49 | A.OFFPC_ITS ---
Vital Signs 05/17/25 13:49 Height 5 ft 2 in Weight 262 lb BMI 47.9 BP 120/80 Blood Pressure Location Lt brachial Position Sitting Pulse 91 Pulse Source Pulse Oximeter Pulse Oximetry (%) 97 Intake Visit Reasons: follow up after PT ok per [place] Allergies adhesive tape Allergy (Intermediate, Verified 05/17/25 13:50) skin breakdown Medication List - Last Reconciled 05/17/25 by Skyler Whitfield MD cetirizine 10 mg PO DAILY PRN cholecalciferol (vitamin D3) (Vitamin D3) 2,000 units PO DAILY 90 days furosemide 10 mg (1/2 x 20 mg) PO QAM gabapentin 400 mg PO TID 30 days ipratropium bromide 2 sprays intranasal DAILY PRN ketotifen fumarate 0.025%(0.035%) drps ophthalmic (eye) magnesium oxide 400 mg PO DAILY 30 days metoprolol succinate ER 25 mg PO DAILY 90 days pxplopyoffyx-tdl-jmrx-FA-vit K 45 mg iron- 800 mcg-120 mcg (Bariatric Multivitamins) 1 cap PO .QD tramadol 50 mg PO BID PRN 30 days triamcinolone acetonide 2 sprays intranasal DAILY valsartan 80 mg PO DAILY vibegron (Gemtesa) 75 mg PO DAILY vitamin A 2 caps PO DAILY walker As directed zinc 25 mg PO DAILY Tobacco use date assessed: 02/18/25 Dental Screening Dental Screen Date: 02/18/25 HPI follow up after PT ok per [place] HPI Details History The patient is a 59-year-old female presenting with chronic conditions and symptoms. Varicose veins and chronic venous stasis dermatitis: - Chronic venous stasis dermatitis has c aused changes in skin color, reported as turning blue, collins, or green over time. - Noted long-standing swelling in the lo wer extremities, worsening skin discoloration, and persistent skin changes. - Past episodes indicated potential conc elmer for cardiac involvement, with fluid backup in the legs due to heart issues. - Patient has been aware of this leg con dition, causing some concern, especially with severe skin color changes. - The timing of the discoloration report ed correlates with changes in swelling over time. Cardiomyopathy with cardiac pacemaker: - The patient has a biventricular cardia c pacemaker. - She had a recent check-up in March and was informed that cardiac status appears stable at that time. - There has been an ongoing history of c ardiac problems identified alongside lower extremity swelling and skin changes. Hypertension: - taking metoprolol 25 mg through Cardio logy office - Current blood pressure reported as 120 /80, described as stable and well- managed. Anemia: - Previously reported laboratory results from October showed hemoglobin levels fluctuating, but most recently documented at 11.6. - Past history of anemia has included ir on level checks, which showed high iron levels in October, leading to discontinuation of iron and vitamin C supplements. - Next checks for hemoglobin and iron ar e planned, with patient awareness of dietary and fasting requirements. Depression and psychological well-being: - History of major depression with ongoi ng therapy reported as significant to the patient's management plan. - Regular therapy sessions reported week ly, providing ongoing psychological support. Allergies: - History of allergies managed with Zyrt ec and allergy injections. - Specifically attributed sensitivities to dust, with ongoing management for these reactions. Medical History: - Varicose veins and chronic venous isiah is dermatitis in lower extremities. - Cardiomyopathy with a biventricular ca rdiac pacemaker. - Essential hypertension. - History of anemia with high iron level s in previous checks. - Major depression managed with weekly t herapy. - Allergic reactions, including dust all ergies, managed with medication and injections. - History of gastric bypass surgery saima ral years ago. Surgical History: - Gastric bypass surgery (date unspecifi ed). Medications: List reviewed with the patient Social History: - The patient reports that she continues to take her medications responsibly. - Mention of activity level, using a can e for ambulation and facing challenges with balance and mobility. Problem List - Varicose veins - Chronic venous stasis dermatitis - Cardiomyopathy with a biventricular ca rdiac pacemaker - Hypertension - Anemia - Major depression - Allergies (dust) - morbid obesity Patient Instructions - Continue taking allergy medications an d getting injections for allergy management. - Follow-up with blood test after fastin g 10 hours to evaluate hemoglobin and iron levels. - Stay hydrated by drinking enough water , especially when feeling symptoms potentially due to low blood pressure. - Attend upcoming appointments as schedu led (urology, orthopedics, cardiology, and pain management). - continue medications as prescribed Return for physical exam next year [facility] Medical History Fibroid Pain at surgical incision Urinary incontinence in female Stress incontinence Lumbar back pain with radiculopathy affecting left lower extremity GERD (gastroesophageal reflux disease) HTN (hypertension) Complex regional pain syndrome i of left lower limb Chronic pain syndrome Cardiac pacemaker in situ Cardiomyopathy Second degree AV block Allergies Osteoarthritis of left knee Spondylosis of lumbosacral spine with radiculopathy Back pain Surgical History History of hernia repair (~11/12/23) H/O gastric bypass Gastric bypass status for obesity Hx of cholecystectomy Hx of breast reduction, elective Hx of colonoscopy History of esophagogastroduodenoscopy (EGD) History of permanent cardiac pacemaker placement Family History Father Asthma Mother HTN (hypertension) Alzheimer disease Brother Cardiac pacemaker Sister Colon cancer Metastatic cancer Social History Household Members: None Housing: Apartment Do you presently have visiting nurse or other home services: Yes ([employer]) Alcohol intake: former Comment: counts correct Patient Tobacco Use Status: Former Tobacco user Cigarette Packs Per Day: 0.5 e-Cigarette/Vaping Use: Never Used Advance Directives Date on File: 11/12/23 service: No 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al status: unemployed and disabled 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 1. Little interest or pleasure in doing things: not at all 2. Feeling down, depressed, or hopeless: not at all 3. Trouble falling or staying asleep, or sleeping too much: not at all 4. Feeling tired or having little energy: not at all 5. Poor appetite or overeating: not at all 6. Feeling bad about yourself - or that you are a failure or have let yourself o r your family down: not at all 7. Trouble concentrating on things, such as reading the newspaper or watching television: not at all 8. Moving or speaking so slowly that other people could have noticed. Or the opposite - being so fidgety or restless that you have been moving around a lot more than usual: not at all 9. Thoughts that you would be better off or of hurting yourself in some way: not at all Total score: 0 Depression Screening Interpretation: Negative Depression Screening Done: Yes 48388 - PHQ-9 Billing: Yes Source: Developed by Drs. Omi Oneill, Barbara Mims, Rodrigo gibson nd colleagues, with an educational kevyn from [employer]. Thrive Questionnaire Date Thrive assessed: 02/18/25 RITA-7 AMB Questionnaire RITA-7 Date RITA - 7 assessed: 02/18/25 Source: Developed by Drs. Omi Onelil, Barbara Mims, Rodrigo Flores and colleagues, with an educational kevyn from [employer]. Physical exam (Primary Care) Vital Signs: Last Vital Signs Pulse 91 05/17/25 13:49 BP 120/80 05/17/25 13:49 Pulse Ox 97 05/17/25 13:49 BMI result Body Mass Index 47.9 Tobacco/Smoking Status: Tobacco use Status Tobacco use date assessed 02/18/25 05/17/25 13:51 Patient Tobacco Use Status Former Tobacco user 05/17/25 13:51 e-Cigarette/Vaping Use Never Used 05/17/25 13:51 PHQ-9: PHQ-9 Score PHQ-9: Total score 0 05/17/25 14:17 Depression Screening Interpretation: Negative Thrive Assessment: Date of Thrive Assessment Date Thrive assessed 02/18/25 05/17/25 13:51 Coding Level of Care Code Est Pt Level 4 (00513) Complex EM visit Add On G2211 Diagnoses Primary osteoarthritis of knees, bilateral M17.0 Other iron deficiency anemia D50.8 Iron deficiency anemia type: other iron deficiency Morbid obesity E66.01 H/O gastric bypass Z98.84 Cardiomyopathy, unspecified type I42.9 Cardiomyopathy type: unspecified Use of cane as ambulatory aid Z99.89 Risk for falls Z91.81 Recurrent major depressive disorder, in full remission F33.42 Active/Remission status: in full remission Biventricular cardiac pacemaker in situ Z95.0 Varicose veins of left lower extremity with inflammation I83.12 Chronic venous stasis dermatitis of both lower extremities I87.2 OAB (overactive bladder) N32.81 Environmental allergies Z91.09 Additional Codes PHQ-9 - 99198 - PHQ-9 Billing: Yes ([id number]) Assessment & Plan Assessment & Plan (1) Primary osteoarthritis of knees, bilateral: Code(s): M17.0 - Bilateral primary osteoarthritis of knee Category: Medical (2) Iron deficiency anemia: Code(s): D50.9 - Iron deficiency anemia, unspecified Category: Medical Qualifiers: Iron deficiency anemia type: other iron deficiency Qualified Code(s): D50.8 - Other iron deficiency anemias (3) Morbid obesity: Code(s): E66.01 - Morbid (severe) obesity due to excess calories Category: Medical (4) H/O gastric bypass: Code(s): Z98.84 - Bariatric surgery status Category: Surgical (5) Cardiomyopathy: Code(s): I42.9 - Cardiomyopathy, unspecified Category: Medical Qualifiers: Cardiomyopathy type: unspecified Qualified Code(s): I42.9 - Cardiomyopathy, unspecified (6) Use of cane as ambulatory aid: Code(s): Z99.89 - Dependence on other enabling machines and devices Category: Medical (7) Risk for falls: Code(s): Z91.81 - History of falling Category: Medical (8) Major depression, recurrent: Code(s): F33.9 - Major depressive disorder, recurrent, unspecified Category: Medical Qualifiers: Active/Remission status: in full remission Qualified Code(s): F33.42 - Major depressive disorder, recurrent, in full remission (9) Biventricular cardiac pacemaker in situ: Code(s): Z95.0 - Presence of cardiac pacemaker Category: Medical (10) Varicose veins of left lower extremity with inflammation: Code(s): I83.12 - Varicose veins of left lower extremity with inflammation Category: Medical (11) Chronic venous stasis dermatitis of both lower extremities: Code(s): I87.2 - Venous insufficiency (chronic) (peripheral) Category: Medical (12) OAB (overactive bladder): Code(s): N32.81 - Overactive bladder Category: Medical (13) Environmental allergies: Code(s): Z91.09 - Other allergy status, other than to drugs and biological substances Category: Medical Plan History The patient is a 59-year-old female presenting with chronic conditions and symptoms. Varicose veins and chronic venous stasis dermatitis: - Chronic venous stasis dermatitis has caused changes in skin color, reported as turning blue, collins, or green over time. - Noted long-standing swelling in the lower extremities, worsening skin discoloration, and persistent skin changes. - Past episodes indicated potential concern for cardiac involvement, with fluid backup in the legs due to heart issues. - Patient has been aware of this leg condition, causing some concern, especially with severe skin color changes. - The timing of the discoloration reported correlates with changes in swelling over time. Cardiomyopathy with cardiac pacemaker: - The patient has a biventricular cardiac pacemaker. - She had a recent check-up in March and was informed that cardiac status appears stable at that time. - There has been an ongoing history of cardiac problems identified alongside lower extremity swelling and skin changes. Hypertension: - taking metoprolol 25 mg through Cardiology office - Current blood pressure reported as 120/80, described as stable and well- managed. Anemia: - Previously reported laboratory results from October showed hemoglobin levels fluctuating, but most recently documented at 11.6. - Past history of anemia has included iron level checks, which showed high iron levels in October, leading to discontinuation of iron and vitamin C supplements. - Next checks for hemoglobin and iron are planned, with patient awareness of dietary and fasting requirements. Depression and psychological well-being: - History of major depression with ongoing therapy reported as significant to the patient's management plan. - Regular therapy sessions reported weekly, providing ongoing psychological support. Allergies: - History of allergies managed with Zyrtec and allergy injections. - Specifically attributed sensitivities to dust, with ongoing management for these reactions. Medical History: - Varicose veins and chronic venous stasis dermatitis in lower extremities. - Cardiomyopathy with a biventricular cardiac pacemaker. - Essential hypertension. - History of anemia with high iron levels in previous checks. - Major depression managed with weekly therapy. - Allergic reactions, including dust allergies, managed with medication and injections. - History of gastric bypass surgery several years ago. Surgical History: - Gastric bypass surgery (date unspecified). Medications: List reviewed with the patient Social History: - The patient reports that she continues to take her medications responsibly. - Mention of activity level, using a cane for ambulation and facing challenges with balance and mobility. Problem List - Varicose veins - Chronic venous stasis dermatitis - Cardiomyopathy with a biventricular cardiac pacemaker - Hypertension - Anemia - Major depression - Allergies (dust) - morbid obesity Patient Instructions - Continue taking allergy medications and getting injections for allergy management. - Follow-up with blood test after fasting 10 hours to evaluate hemoglobin and iron levels. - Stay hydrated by drinking enough water, especially when feeling symptoms potentially due to low blood pressure. - Attend upcoming appointments as scheduled (urology, orthopedics, cardiology, and pain management). - continue medications as prescribed Return for physical exam next year
--- OUTSIDE RECORDS SUMMARY | 2025-05-17 17:39 | XMS_ITS | Clinical Summary ---
Author Organization [employer] Address [address] [place] [address] Care Team Providers Care Moisture Conditioner Operator Name Role Phone Skyler Whitfield Primary Care Provider [phone] Allergies Active Allergy Reactions Criticality Noted Date [...] Active beta carotene (vitamin A) 3 MG (60777 UT) capsule TOME 2 C PSULAS POR [...] tablet 20 mg. 4 Active Active Problems Problem Noted Date Diagnosed Date Chronic periodontal disease 04/28/2025 Encounters Date Type Department Care Team Description 04/28/2025 3:30 PM EDT Office Visit [facility] [address] [place] [address] Elfego Georges DDS Chronic periodontal disease (Primary Dx) 02/16/2025 11:00 AM EDT Office Visit [facility] [address] [place] [address] Susan Ng from Last 3 Months Social [...] Cancer Screening 1994 HPV/Cotest 1994 Mammogram 2004 Dental Prophylaxis 06/19/2024 12/18/2023, 11/01/2008 Pneumococcal Vaccine: 50+ Years (2 of 2 - PCV) 02/10/2025 02/11/2024 COVID-19 Vaccine (4 - 2024- season) 2025 08/20/2021, 11/29/2020, 11/08/2020 Influenza Vaccine (#1) 2025 , 11/12/2023, 08/20/2021 Dental Oral Exam 08/19/2025 02/16/2025, , 08/26/2017 Dental X-Ray: Bitewings 02/17/2026 02/17/20 25, 11/26/2023, 08/26/2017, Additional history exists Tobacco Screening 04/28/2026 04/28/2025 Dental X-Ray: Full Mouth 11/26/2026 024, 10/16/2023, [...] Procedure Name Priority Date/Time Associated Diagnosis Comments CASE PRESENTATION, DETAILED AND EXTENSIVE TREATMENT PLANNING Routine 04/28/2025 3:30 PM EDT CONSULTATION - DIAGNOSTIC SERVICE PROVIDED BY DENTIST OR PHYSICIAN OTHER THAN REQUESTING DENTIST OR PHYSICIAN Routine 04/28/2025 3:30 PM EDT PERIODIC ORAL EVALUATION - ESTABLISHED PATIENT Routine [...] Most Recently Relevant to Health Maintenance Insurance [facility]AL-[facility] MEDICAID STAND ADULT Care Teams Moisture Conditioner Operator Relationship Specialty Start Date End Date Skyler Whitfield [address] [place] [address] PCP - General 02/16/25
== END 2025-05-17 14:09 | disposition home or self-care (01) ==
LOC: HO.HMCC 13:48
PROVIDERS: PCP Internal Medicine; Visit Provider Internal Medicine
DX: M17.0 Bilateral primary osteoarthritis of knee (principal); E66.01 Morbid (severe) obesity due to excess calories; I42.9 Cardiomyopathy, unspecified; Z68.42 Body mass index [BMI] 45.0-49.9, adult; D50.8 Other iron deficiency anemias; Z98.84 Bariatric surgery status; Z99.89 Dependence on other enabling machines and devices; Z91.81 History of falling; F33.42 Major depressive disorder, recurrent, in full remission; Z95.0 Presence of cardiac pacemaker; I83.12 Varicose veins of left lower extremity with inflammation; I87.2 Venous insufficiency (chronic) (peripheral); N32.81 Overactive bladder

== ENCOUNTER → 2025-05-17 13:47 | Outpatient (BNVA) | payer OTHER, SELFPAY | PROVIDERS: PCP Internal Medicine; Visit Provider Internal Medicine | DX: I10 Essential (primary) hypertension (principal); I42.9 Cardiomyopathy, unspecified; D64.9 Anemia, unspecified; M17.0 Bilateral primary osteoarthritis of knee; D50.8 Other iron deficiency anemias; E66.01 Morbid (severe) obesity due to excess calories; F33.42 Major depressive disorder, recurrent, in full remission; Z91.81 History of falling; Z98.84 Bariatric surgery status; Z99.89 Dependence on other enabling machines and devices; Z95.0 Presence of cardiac pacemaker | CPT/HCPCS: 96127; 99212 ==

== ENCOUNTER 2025-05-26 14:18 | Outpatient (AMB) | payer OTHER, SELFPAY ==
--- NOTE | 2025-05-26 14:19 | MHC.OFFVIS ---
Intake Visit Reasons: 6M follow up Intake Note: Patient is present today for a 6m follow up Urology Medication:gemtesa,furosemide Antibiotic Allergy:none Blood Thinner:vitamin k Tire Beader Maker Required: Yes Tire Beader Maker Name: Ramírez Information Interpreted: non-clinical & clinical Allergies adhesive tape Allergy (Intermediate, Verified 05/26/25 14:19) skin breakdown HPI Comments Details: 05/26/25--Blake is here for follow-up she has had overactive bladder symptoms therapy included Botox bladder injection. The patient states that after the Botox she noted a change in urinary stream where the urine sprayed and did not have a straight stream. Office cystoscopy was done on 11/22/2024 at that time there is no anatomical blockage to the urethra or bladder neck. She is currently on Gemtesa 75 mg daily. History of Present Illness The patient is a 59-year-old female presenting with overactive bladder symptoms. She has been experiencing changes in her urinary stream, including spraying and lack of a straight stream, following Botox bladder injection therapy. An office cystoscopy performed on 11/22/24 revealed no anatomical blockage to the urethra or bladder neck. The patient is currently on Gemtesa, 75 mg daily, to manage her symptoms. She reports frequent urination and bladder spasms, which sometimes occur even when the bladder is not full, leading to small amounts of urination. The patient experiences pain in the bladder, likely due to spasms, and finds some relief when urinating. There was a discussion about nephrolithiasis as a potential cause of her symptoms, although she denies any history of nephrolithiasis or surgical intervention for it. Results - Office cystoscopy on 11/22/24: No anatomical blockage to the urethra or bladder neck Plan 1. Overactive Bladder - Continue Gemtesa, 75 mg daily, to manage symptoms. - Prescribed Trospium to be taken twice daily around lunch and dinner, ideally on an empty stomach. - Plan a follow-up phone call in 10 weeks to assess medication efficacy and tolerance. 11/22/24--Here for office cystoscopy. S/P Botox bladder injection 03/28/24--Urvashi is a Israeli-speaking female she has been followed due to overactive bladder symptoms urge urinary incontinence. The patient is also prescribed Gemtesa. Urvashi complains that since I performed the urodynamics procedure she has noted spraying of urination. She feels that there is something inside blocking. Cystoscopy findings: mild trabeculations, no suspicious bladder lesions visualized, no evidence of urethral scarring. 06/28/24--S/P Botox bladder injection 03/28/24--Urvashi is a Israeli-speaking female she has been followed due to overactive bladder symptoms urge urinary incontinence. The patient is also prescribed Gemtesa. Urvashi complains that since I performed the urodynamics procedure she has noted spraying of urination. She feels that there is something inside blocking. I have instructed her not to push when she is urinating to see if this may help. I want her to stop the gemtesa for 7 days to see if there is any difference in the voiding pattern. She can resume the gemtesa if her urge symptoms worsen and she has no improvement in the spraying. Will further evaluate with cystoscopy if symptoms persist. Bladder scan PVR 249 mL. 03/25/24-- Office procedure: Bladder botox injection--100 units 02/20/24-- Here for urodynamics. CMG parameters detailed below. Interpretation: During the filling phase there was normal sensation, sensory urgency was noted, strong urge was noted associated with detrusor contraction; leakage was not observed during cough or valsalva stress. Findings consistent with detrusor overactivity. EMG- Appropriate changes in the waveforms were noted during the filling phase. The patient was not able to completely empty with the UDS catheters in place. The patient voided 300 mL in the bathroom after catheters removed. The patient has been on Myrbetriq 50 mg for symptoms of urinary urgency. She states the medication has not helped with her urinary symptoms. She has been doing Kegel exercises. I have discussed alternative treatment options to include trial of additional anti muscarinics, Botox bladder injection was discussed. Discussed Plan for Botox bladder instillation. 09/29/23--Telehealth follow-up, as she has the Flu. she was last seen in the office on 06/23/2023 for office cystoscopy, findings bladder wall thickening. She is on anticholinergics for lower urinary tract symptoms of urgency and incontinence. Today she c/o's of spraying of urinary stream, she does not feel the medication is working. Plan-discussed Will sche urodynamics. 06/23/23?She is followed today for a cystoscopy procedure. The patient is a Israeli-speaking female. A certified public health nurse was present during the visit. She has comorbidities, obesity, sleep apnea. She denies history of a hysterectomy. She has had 3 pregnancies, 2 vaginal deliveries, 1 miscarriage.?She was last seen by me on 03/20/23 for urinary frequency. The patient was prescribed Myrbetriq 50 mg daily for OAB symptoms. Ordered a renal ultrasound to be obtained before the Cystoscopy during that time. I reviewed the retroperitoneum US results from 06/12/23 revealed right-sided pelvic fullness without nephrolithiasis.? Postvoid bladder volume of 22.2 mL with visualization of the bilateral ureteral jets. Cystoscopy findings: mild bladder wall thickening. bladder Filled with 200 mL sterilel water. After removing the cystoscope, Pelvic examination--performed, there was no leakage with valsalva, and minimal leakage with cough in supine position, no significant vaginal prolapse. vaginal atrophy. Plan: Continue Myrbetriq 50 mg daily. Ordered vagifem 10 mEq twice a week. Patient instructed on kegel exercises and to do 10 - 20 repetitions twice a day. Follow-up in 4 months. [facility] Medical History Fibroid Pain at surgical incision Urinary incontinence in female Stress incontinence Lumbar back pain with radiculopathy affecting left lower extremity GERD (gastroesophageal reflux disease) HTN (hypertension) Complex regional pain syndrome i of left lower limb Chronic pain syndrome Cardiac pacemaker in situ Cardiomyopathy Second degree AV block Allergies Osteoarthritis of left knee Spondylosis of lumbosacral spine with radiculopathy Back pain Surgical History History of hernia repair (~11/12/23) H/O gastric bypass Gastric bypass status for obesity Hx of cholecystectomy Hx of breast reduction, elective Hx of colonoscopy History of esophagogastroduodenoscopy (EGD) History of permanent cardiac pacemaker placement Family History Father Asthma Mother HTN (hypertension) Alzheimer disease Brother Cardiac pacemaker Sister Colon cancer Metastatic cancer Social History Household Members: None Housing: Apartment Do you presently have visiting nurse or other home services: Yes (MEDICAID PLAN COMPLIANCE DIRECTOR) Alcohol intake: former Comment: counts correct Patient Tobacco Use Status: Former Tobacco user Cigarette Packs Per Day: 0.5 e-Cigarette/Vaping Use: Never Used Advance Directives Date on File: 11/12/23 service: No 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al status: unemployed and disabled 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 Cognitive needs: No Hearing needs: No Vision needs: Yes Results AMB Urinalysis, Automated UA Leukoctes 0 Grace/uL Last Edit by Margaret Kim on 05/26/25 17:08 UA Nitrite Negative Last Edit by Margaret Kim on 05/26/25 17:08 UA Urobilinogen 3.5 mg/dL Last Edit by Margaret Kim on 05/26/25 17:08 UA Protein 0 mg/dL Last Edit by Margaret Kim on 05/26/25 17:08 UA pH 6.5 Last Edit by Margaret Kim on 05/26/25 17:08 UA Blood 0 Rudi/uL Last Edit by Margaret Kim on 05/26/25 17:08 UA Specific Stafford 1.010 Last Edit by Margaret Kim on 05/26/25 17:08 UA Ketone Negative Last Edit by Margaret Kim on 05/26/25 17:08 UA Bilirubin 0 mg/dL Last Edit by Margaret Kim on 05/26/25 17:08 UA Glucose 0 mg/dL Last Edit by Margaret Kim on 05/26/25 17:08 Assessment & Plan Assessment & Plan Orders: Orders AMB Urinalysis Automated Today N32.81 - Overactive bladder, N39.3 - Stress incontinence (female) (male), R32 - Unspecified urinary incontinence, R35.0 - Frequency of micturition, R39.15 - Urgency of urination Medications: New trospium administer on an empty stomach one hour before or 2 hours after a meal. 20 mg PO BID 60 tabs 3RF Coding
--- OUTSIDE RECORDS SUMMARY | 2025-05-26 18:41 | XMS_ITS | Clinical Summary ---
Author Organization [employer] Address [address] [facility] [address] [place] [address] Care Team Providers Care Mortar Man Name Role Phone Skyler Whitfield Primary Care Provider [phone] Allergies Active Allergy Reactions Criticality Noted Date [...] Active beta carotene (vitamin A) 3 MG (01174 UT) capsule TOME 2 C PSULAS POR V A ORAL TODOS LOS D 4 Active triamcinolone (Nasacort) 55 MCG/ACT nasal inhaler ADMINISTER 1-2 SPRAYS IN EACH NOSTRIL DAILY IN THE MORNING 3 Active Myrbetriq 50 MG 24 hr tablet TOME CELY TABLETA POR V A ORAL TODOS LOS CARSON 4 Active metoprolol succinate XL (Toprol-XL) 25 MG 24 hr tablet TOME CEYL TABLETA TODOS LOS D 3 Active magnesium [...] Description 04/28/2025 3:30 PM EDT Office Visit [facility] [address] [place] [address] Elfego Georges DDS Chronic periodontal disease (Primary Dx) from Last 3 Months Social History Tobacco [...] 1:06 PM EST Sexual Orientation Straight 10/16/2023 1 :06 PM EST Last Filed Vital Signs Vital [...] 2 - PCV) 02/10/2025 02/11/2024 COVID-19 Vaccine ( - season) 2025 08/20/2021, 11/29/2020, 11/08/2020 Influenza Vaccine [...] OR PHYSICIAN Routine 04/28/2025 3:30 PM EDT BITEWINGS - 4 RADIOGRAPHIC IMAGES Routine 02/16/2025 11:00 AM EDT PERIODIC ORAL EVALUATION - ESTABLISHED PATIENT Routine 02/16/2025 11:00 AM EDT PROPHYLAXIS - ADULT Routine 12/18/2023 3 :00 PM EDT Periodontal disease Subgingival dental calculus Dental plaque INTRAORAL - COMPLETE SERIES OF RADIOGRAPHIC IMAGES Routine 11/26/2023 10:30 AM EDT Periodontal disease Dental caries from Last 3 Months or Most Recently Relevant to Health Maintenance Insurance DENTAL-[facility] MEDICAID STAND ADULT Care Teams Mortar Man Relationship Specialty Start Date End Date Skyler Whitfield 1962 [place] [address] PCP - General 02/16/25
== END 2025-05-26 15:29 | disposition home or self-care (01) ==
LOC: HO.HUSH 14:18
PROVIDERS: PCP Internal Medicine; Visit Provider Urology
DX: N39.3 Stress incontinence (female) (male) (principal); R32 Unspecified urinary incontinence; R35.0 Frequency of micturition; N32.81 Overactive bladder; R39.15 Urgency of urination

== ENCOUNTER → 2025-05-26 14:18 | Outpatient (BNVA) | payer OTHER, SELFPAY | PROVIDERS: PCP Internal Medicine; Visit Provider Urology | DX: N32.81 Overactive bladder (principal); R39.15 Urgency of urination; R39.198 Other difficulties with micturition | CPT/HCPCS: 81003; 99212 ==

== ENCOUNTER 2025-06-02 08:59 | Outpatient (AMB) | payer OTHER, SELFPAY ==
--- NOTE | 2025-06-02 09:09 | MHC.OFFVIS ---
Intake Visit Reasons: Inj-B/L knee inj last injection 03/28/25 Intake Note: Urvashi is a 59 year old female who presents today for a follow up of her Bilateral Knee OA. Last injections were administered bilaterally on 03/28/2025, these injections remain helpful and the last injection were more helpful than in the past. She would like to repeat as she is not currently a a surgical candidate. Allergies adhesive tape Allergy (Intermediate, Verified 05/26/25 14:19) skin breakdown HPI HPI Inj-B/L knee inj last injection 03/28/25: Details: Urvashi is a 59 year old female who presents today for a follow up of her Bilateral Knee OA. Last injections were administered bilaterally on 03/28/2025, these injections remain helpful and the last injection were more helpful than in the past. She would like to repeat as she is not currently a a surgical candidate. [facility] Medical History Fibroid Pain at surgical incision Urinary incontinence in female Stress incontinence Lumbar back pain with radiculopathy affecting left lower extremity GERD (gastroesophageal reflux disease) HTN (hypertension) Complex regional pain syndrome i of left lower limb Chronic pain syndrome Cardiac pacemaker in situ Cardiomyopathy Second degree AV block Allergies Osteoarthritis of left knee Spondylosis of lumbosacral spine with radiculopathy Back pain Surgical History History of hernia repair (~11/12/23) H/O gastric bypass Gastric bypass status for obesity Hx of cholecystectomy Hx of breast reduction, elective Hx of colonoscopy History of esophagogastroduodenoscopy (EGD) History of permanent cardiac pacemaker placement Family History Father Asthma Mother HTN (hypertension) Alzheimer disease Brother Cardiac pacemaker Sister Colon cancer Metastatic cancer Social History Household Members: None Housing: Apartment Do you presently have visiting nurse or other home services: Yes (SECURITY DIRECTOR) Alcohol intake: former Comment: counts correct Patient Tobacco Use Status: Former Tobacco user Cigarette Packs Per Day: 0.5 e-Cigarette/Vaping Use: Never Used Advance Directives Date on File: 11/12/23 service: No 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al status: unemployed and disabled 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 Cognitive needs: No Hearing needs: No Vision needs: Yes Physical Exam Extrem Other: Pleasant woman no acute distress. Medial joint line ttp bilaterally Skin is clean dry and intact Palpable pedal pulses Office Procedures Joint Inj/Aspir; Non-Pain Clin Joint Injection/Drain Details: Injected 1 mL of Decadron and 3 mL 1% lidocaine and 3 mL of 0.25% Marcaine. Site was prepped using aseptic technique. Patient tolerated the procedure well. Shoulders, Hips, Knees, Knee Large Joint Injection : Bilateral Knee Coding Procedure code (CPT) selection complete Assessment & Plan Assessment & Plan (1) Primary osteoarthritis of knees, bilateral: Code(s): M17.0 - Bilateral primary osteoarthritis of knee Category: Medical Plan: 59-year-old female with bilateral knee arthritis. She is not a surgical candidate. I injected bilateral knees. Coding Level of Care Code Est Pt Level 3 (71781) Diagnoses Primary osteoarthritis of knees, bilateral M17.0 CPT Codes Shoulders, Hips, Knees, - Knee Large Joint Injection : Bilateral Knee ([id number])
--- OUTSIDE RECORDS SUMMARY | 2025-06-02 09:41 | XMS_ITS | Clinical Summary ---
Author Organization [employer] Address [address] [facility] [address] [place] [address] Care Team Providers Care Raftsman Name Role Phone Skyler Whitfield Primary Care Provider [phone] Allergies Active Allergy Reactions Criticality Noted Date Comments Dust Mite Extract Dermatitis 10/16/2023 Wound Dressing Adhesive Rash Low 10/16/2023 Medications gabapentin (Neurontin) 400 MG capsule TOME CELY C PSULA FLAVIO VECES AL D A 4 Active lisinopril 2.5 MG tablet TOME CELY TABLETA TODOS LOS D 3 Active traMADol (Ultram) 50 MG tablet TOME CLEY TABLETA ORALLY 2 TIMES A DAY NEEDED FOR PAIN FOR 30 DAYS 4 Active beta carotene (vitamin A) 3 MG (94164 UT) capsule TOME 2 C PSULAS POR [...] Description 04/28/2025 3:30 PM EDT Office Visit [facility] [address] [place] [address] Elfego Georges DDS Chronic periodontal disease (Primary [...] Most Recently Relevant to Health Maintenance Insurance DENTAL-[facility] MEDICAID STAND ADULT Care Teams Raftsman Relationship Specialty Start Date End Date Skyler Whitfield 1962 [place] [address] PCP - General 02/16/25
== END 2025-06-02 09:48 | disposition home or self-care (01) ==
LOC: HO.HOS 09:00
PROVIDERS: PCP Internal Medicine; Visit Provider Orthopaedic Surgery
DX: M17.0 Bilateral primary osteoarthritis of knee (principal)
CPT/HCPCS: 20610

== ENCOUNTER → 2025-06-02 08:59 | Outpatient (BNVA) | payer OTHER, SELFPAY | PROVIDERS: PCP Internal Medicine; Visit Provider Orthopaedic Surgery | DX: M17.0 Bilateral primary osteoarthritis of knee (principal) | CPT/HCPCS: 20610; J0665; J1100; J2003 ==

== ENCOUNTER 2025-06-20 13:02 | Outpatient (AMB) | payer MEDICAID, SELFPAY ==
[2025-06-20 13:16] VITALS: BP 130/80; PULSE 74
--- NOTE | 2025-06-20 13:16 | MHC.OFFVIS ---
Vital Signs 06/20/25 13:16 Height 5 ft 2 in BP 130/80 Blood Pressure Location Lt brachial Position Sitting Pulse 74 Intake Visit Reasons: 6 mth w/ [facility] [facility] Intake Note: 6 month follow-up ekg after [place] [facility] check feeling good Regional Sales Director Required: Yes Regional Sales Director Services: Regional Sales Director Present Regional Sales Director Name: giovanni Phillips Allergies adhesive tape Allergy (Intermediate, Verified 05/26/25 14:19) skin breakdown Medication List - Last Reconciled 06/20/25 by Gabriel Salcedo MD cetirizine 10 mg PO DAILY PRN cholecalciferol (vitamin D3) 50 mcg PO DAILY 90 days furosemide 10 mg (1/2 x 20 mg) PO QAM gabapentin 400 mg PO TID 30 days ipratropium bromide 2 sprays intranasal DAILY PRN ketotifen fumarate 0.025%(0.035%) drps ophthalmic (eye) magnesium oxide 400 mg PO DAILY 30 days metoprolol succinate ER 25 mg PO DAILY 90 days uppuqwglenqh-xvt-bqfw-FA-vit K 45 mg iron- 800 mcg-120 mcg (Bariatric Multivitamins) 1 cap PO .QD tramadol 50 mg PO BID PRN 30 days triamcinolone acetonide 2 sprays intranasal DAILY trospium 20 mg PO BID valsartan 80 mg PO DAILY vibegron (Gemtesa) 75 mg PO DAILY vitamin A 2 caps PO DAILY walker As directed zinc 25 mg PO DAILY HPI Comments Details: Urvashi comes for follow-up. History obtained with help of spiritual advisor. Comes for pacemaker check and cardiomyopathy follow-up. Patient overall doing well. She is complaining of some edema around the ankle and discoloration of the ankle. Has been seen by vascular surgery but felt that she does not have any significant target for treatment for venous insufficiency. She has no heart failure symptoms of orthopnea, PND, leg edema, worsening shortness of breath. No lightheadedness, syncope. No prolonged palpitation irregular heartbeat. Taking all her medications. He has his CPAP at nighttime. [facility] Medical History Fibroid Pain at surgical incision Urinary incontinence in female Stress incontinence Lumbar back pain with radiculopathy affecting left lower extremity GERD (gastroesophageal reflux disease) HTN (hypertension) Complex regional pain syndrome i of left lower limb Chronic pain syndrome Cardiac pacemaker in situ Cardiomyopathy Second degree AV block Allergies Osteoarthritis of left knee Spondylosis of lumbosacral spine with radiculopathy Back pain Surgical History History of hernia repair (~11/12/23) H/O gastric bypass Gastric bypass status for obesity Hx of cholecystectomy Hx of breast reduction, elective Hx of colonoscopy History of esophagogastroduodenoscopy (EGD) History of permanent cardiac pacemaker placement Family History Father Asthma Mother HTN (hypertension) Alzheimer disease Brother Cardiac pacemaker Sister Colon cancer Metastatic cancer Social History Household Members: None Housing: Apartment Do you presently have visiting nurse or other home services: 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) Alcohol intake: former Comment: counts correct Patient Tobacco Use Status: Former Tobacco user Cigarette Packs Per Day: 0.5 e-Cigarette/Vaping Use: Never Used Advance Directives Date on File: 11/12/23 service: No 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al status: unemployed and disabled 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 Cognitive needs: No Hearing needs: No Vision needs: Yes Review of Systems Const Denies chills, Denies fatigue, Denies fever(s), Denies frequent falls, Denies weakness, Denies weight gain and Denies weight loss ENT Denies dizziness Card Denies chest pain, Denies leg edema, Denies lightheadedness, Denies palpitations, Denies dyspnea, Denies dyspnea on exertion, Denies orthopnea and Denies other (loss of consciousness) Resp Denies cough, Denies dyspnea and Denies dyspnea on exertion GI Denies hematochezia and Denies change in stool character Musc Denies abnormal gait, Denies muscle weakness, Denies numbness, Denies radiating pain into limb and Denies tingling Neuro Denies abnormal gait, Denies dizziness, Denies frequent falls, Denies numbness, Denies tingling and Denies weakness Endo Denies fatigue and Denies palpitations Physical Exam Vital Signs: Last Vital Signs Pulse 74 06/20/25 13:16 BP 130/80 06/20/25 13:16 Const General: cooperative, healthy appearing, comfortable and no acute distress Orientation/consciousness: patient oriented x3 Neck Neck: Yes normal visual inspection Chest Other: pacer site left upper chest, dressing removed, incision very well appromiated, no signs of redness, draininge, there is soft swelling noted, mild sensitivity to touch. Resp Effort & Inspection: normal respiratory effort Auscultation: clear to auscultation bilaterally, no rales and no rhonchi Cardio Jugular venous distension: no JVD Rate: regular rate Rhythm: regular rhythm Heart sounds: S1 normal heart sound present, S2 normal heart sound present, no gallops, no murmurs and no rubs Neuro General: patient oriented x3 Extrem General: Yes normal to inspection, No no pedal edema, No calf tenderness, Yes pedal edema and Yes venous stasis dermatitis Psych Appearance: grossly normal Mental Status: mental status grossly normal Speech and movement: Normal speech and movement present Office Procedures Cardiac Device Check Cardiac Device Check Details: [employer] scientific biventricular pacemaker in place. Programmed in DDD at 60 beats per minute. Biventricular pacing 97% of time. Frequent PVCs noted. Atrial ventricular sensing is adequate. Atrial and biventricular pacing thresholds are excellent. Pacing lead impedance is stable. Battery life is excellent 01045-PM Cardiac Device Check, multi lead pacemaker Procedure code (CPT) selection complete EKG Details: EKG shows atrially sensed, ventricularly paced rhythm 41758-[id number], Complete Assessment & Plan Assessment & Plan (1) Cardiomyopathy: Code(s): I42.9 - Cardiomyopathy, unspecified Category: Medical Qualifiers: Cardiomyopathy type: unspecified Qualified Code(s): I42.9 - Cardiomyopathy, unspecified Plan: Prior cardiomyopathy with normalized LV ejection fraction since cardiac resynchronization therapy. Continue to monitor clinically. Follow-up echocardiogram in 6 months time. Continue CPAP therapy. Continue current neurohormonal modulation with valsartan as well as metoprolol therapy. Aggressive weight loss was suggested. No signs or symptoms of heart failure. (2) Biventricular cardiac pacemaker in situ: Code(s): Z95.0 - Presence of cardiac pacemaker Category: Medical Plan: Biventricular cardiac pacemaker in-situ with improvement in LV ejection fraction. Will monitor remotely. Will follow up in 6 months time. (3) Chronic venous stasis dermatitis of both lower extremities: Code(s): I87.2 - Venous insufficiency (chronic) (peripheral) Category: Medical Plan: Patient with bilateral pedal edema with venous stasis changes suggestive of peripheral venous hypertension. Not target for treatment from vascular point of view. Such as compression stocking. Suggest aggressive weight loss. Follow up in the clinic in 6 months time, sooner PRN. Thank you for allowing me to partake in her care Orders: Orders CA echo transthoracic complete 6 Months I42.9 - Cardiomyopathy, unspecified Coding Level of Care Code Est Pt Level 4 (57363) Complex EM visit Add On G2211 Diagnoses Cardiomyopathy, unspecified type I42.9 Cardiomyopathy type: unspecified Biventricular cardiac pacemaker in situ Z95.0 Chronic venous stasis dermatitis of both lower extremities I87.2 CPT Codes Cardiac Device Check - Cardiac Device 3: 25692-UL Cardiac Device Check, multi lead pacemaker ([id number]) EKG - CPT: 28193-Mhgcyerypnpfgiwes, Complete ([id number])
== END 2025-06-20 13:59 | disposition home or self-care (01) ==
LOC: HO.HCS 13:02
PROVIDERS: PCP Internal Medicine; Visit Provider Internal Medicine Cardiovascular Disease
DX: I42.9 Cardiomyopathy, unspecified (principal); Z95.0 Presence of cardiac pacemaker; I87.2 Venous insufficiency (chronic) (peripheral)
CPT/HCPCS: 93010; 93281; 99214

== ENCOUNTER → 2025-06-20 13:02 | Outpatient (BNVA) | payer OTHER, SELFPAY | PROVIDERS: PCP Internal Medicine; Visit Provider Internal Medicine Cardiovascular Disease | DX: I87.2 Venous insufficiency (chronic) (peripheral) (principal); Z95.0 Presence of cardiac pacemaker; I42.9 Cardiomyopathy, unspecified | CPT/HCPCS: 93005; 99212 ==

== ENCOUNTER → 2025-06-27 23:59 | Outpatient (BNV) | payer OTHER, SELFPAY ==
--- NOTE | 2025-06-29 12:57 | A.OFFVIS_ITS ---
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- [employer] Allergies adhesive tape Allergy (Intermediate, Verified 05/26/25 14:19) skin breakdown PFSH Medical History (Updated 06/29/25 @ 12:58 by Gabriel Salcedo MD) Cardiac pacemaker in situ Fibroid Pain at surgical incision Urinary incontinence in female Stress incontinence Lumbar back pain with radiculopathy affecting left lower extremity GERD (gastroesophageal reflux disease) HTN (hypertension) Complex regional pain syndrome i of left lower limb Chronic pain syndrome Cardiomyopathy Second degree AV block Allergies Osteoarthritis of left knee Spondylosis of lumbosacral spine with radiculopathy Back pain Surgical History History of hernia repair (~11/12/23) H/O gastric bypass Gastric bypass status for obesity Hx of cholecystectomy Hx of breast reduction, elective Hx of colonoscopy History of esophagogastroduodenoscopy (EGD) History of permanent cardiac pacemaker placement Family History Father Asthma Mother HTN (hypertension) Alzheimer disease Brother Cardiac pacemaker Sister Colon cancer Metastatic cancer Social History Household Members: None Housing: Apartment Do you presently have visiting nurse or other home services: Yes (IT 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 Bi V pacing 99% of time. Pacemaker function is adequate [id number] Cardiac Device Interrogation, pacemaker Procedure code (CPT) selection complete Assessment & Plan Assessment & Plan (1) Biventricular cardiac pacemaker in situ: Comment: Upgraded from dual-chamber pacemaker due to worsening LV ejection fraction, suspected RV pacer related Code(s): Z95.0 - Presence of cardiac pacemaker Category: Medical Plan: See above Coding Level of Care Code Procedure Only Diagnoses Biventricular cardiac pacemaker in situ Z95.0 CPT Codes Cardiac Device Check - Cardiac Device 12: [id number] Cardiac Device Interrogation, pacemaker ([id number])
== END ==
PROVIDERS: PCP Internal Medicine; Visit Provider Internal Medicine Cardiovascular Disease
DX: Z45.018 Encounter for adjustment and management of other part of cardiac pacemaker (principal)
CPT/HCPCS: 93294

== ENCOUNTER 2025-07-01 14:12 | Outpatient (AMB) | payer OTHER, SELFPAY ==
--- NOTE | 2025-07-01 14:23 | MHC.OFFVIS ---
Vital Signs 07/01/25 14:33 07/01/25 14:33 Height 5 ft 2 in Weight 265 lb 8 oz BMI 48.6 BP 197/80 H 145/70 H Blood Pressure Location Rt brachial Lt radial Position Sitting Sitting Pulse 89 Pulse Source Pulse Oximeter Pulse Oximetry (%) 100 Oxygen Delivery Method Room Air Comment bp recheck Intake Visit Reasons: Pill Count Intake Note: Patient comes in today for a pill count to tramadol, patient should have 0 tablets and presents with 8 tablets which she last took today 07/01/25 at 11:07am. Pain today 10/11 Senior Billing Consultant Required: No Accompanied by: Self / Same As Patient Allergies adhesive tape Allergy (Intermediate, Verified 07/01/25 14:34) skin breakdown HPI Comments Details: Urvashi presents to the office today for follow up chronic pain and chronic opioid therapy management. Patient is prescribed Tramadol 50mg po BID as needed. Patient arrived today with the expectation of having 0 pills, she presented 8 pills which were counted in the presence of two staff members and returned to the patient in the original prescription bottle. This demonstrates responsible attitude toward patient's opioid medications. Pain is reported today as 10/11 and last dose of pain medication was taken today at 11am. Patient denies side effects including somnolence, constipation, itching, dyspnea, rash, dizziness or weakness. [facility] Medical History (Updated 06/29/25 @ 12:58 by Gabriel Salcedo MD) Cardiac pacemaker in situ Fibroid Pain at surgical incision Urinary incontinence in female Stress incontinence Lumbar back pain with radiculopathy affecting left lower extremity GERD (gastroesophageal reflux disease) HTN (hypertension) Complex regional pain syndrome i of left lower limb Chronic pain syndrome Cardiomyopathy Second degree AV block Allergies Osteoarthritis of left knee Spondylosis of lumbosacral spine with radiculopathy Back pain Surgical History History of hernia repair (~11/12/23) H/O gastric bypass Gastric bypass status for obesity Hx of cholecystectomy Hx of breast reduction, elective Hx of colonoscopy History of esophagogastroduodenoscopy (EGD) History of permanent cardiac pacemaker placement Family History Father Asthma Mother HTN (hypertension) Alzheimer disease Brother Cardiac pacemaker Sister Colon cancer Metastatic cancer Social History Household Members: None Housing: Apartment Do you presently have visiting nurse or other home services: Yes (INCOME TAX INVESTIGATOR) Alcohol intake: former Comment: counts correct Patient Tobacco Use Status: Former Tobacco user Cigarette Packs Per Day: 0.5 e-Cigarette/Vaping Use: Never Used Advance Directives Date on File: 11/12/23 service: No 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al status: unemployed and disabled 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 Cognitive needs: No Hearing needs: No Vision needs: Yes Review of Systems Const All systems reviewed & are unremarkable except as noted in HPI and below Physical Exam Vital Signs: Last Vital Signs Pulse 89 07/01/25 14:33 BP 145/70 H 07/01/25 14:33 Pulse Ox 100 07/01/25 14:33 Oxygen Delivery Method Room Air 07/01/25 14:33 BMI result Body Mass Index 48.6 General: awake, alert, oriented. Answers questions appropriately. Fully engaged in examination. Skin: warm, dry, intact without visible rashes or lesions. HEENT: Normocephalic. Hearing intact. Cardiac: External chest normal in appearance. BLE pitting edema. Respiratory: No cough, audible wheezing or stridor. Abdomen: without gross distension. MS: No obvious swelling or deformities. Able to transition from sit to stand unassisted. Neurological: Oriented to person, place, time and situation. Thought process intact. Ambulates with cane for assistance. Psychiatric: Appropriate mood and affect. Good judgment and insight. Const Other: Assessment & Plan Assessment & Plan (1) Hip pain, left: Code(s): M25.552 - Pain in left hip Category: Medical (2) Lumbar pain: Code(s): M54.5 - Low back pain Category: Medical (3) Osteoarthritis of left hip: Code(s): M16.12 - Unilateral primary osteoarthritis, left hip Category: Medical Qualifiers: Osteoarthritis type: primary Qualified Code(s): M16.12 - Unilateral primary osteoarthritis, left hip (4) Spondylosis of lumbosacral spine with radiculopathy: Code(s): M47.27 - Other spondylosis with radiculopathy, lumbosacral region Category: Medical (5) Chronic pain syndrome: Code(s): G89.4 - Chronic pain syndrome Category: Medical (6) Complex regional pain syndrome i of left lower limb: Code(s): G90.522 - Complex regional pain syndrome I of left lower limb Category: Medical Plan Masspat was reviewed and without concerns. No obvious signs of diversion, abuse or misuse of the opioid medications. Refill sent for Tramadol 50mg po BID prn with 1 refill. Patient to follow-up in the office in 2 months, sooner if needed. All questions and concerns have been answered and patient agrees with the plan. Stimwave trial L2-L3 L3-L4 done previously but patient reported increased numbness to lateral left thigh. Post procedure CT and EMG were completed which did not demonstrate evidence of acute pathology or radiculopathy. EMG did show evidence of peripheral neuropathy. Due to the side effects, neuropathy and interaction with her pacemaker she does not want to proceed with SCS at this time. Medications: Refilled tramadol 50 mg PO BID PRN 60 tabs 1RF pain 30 days Coding Level of Care Code Est Pt Level 3 (79868) Complex EM visit Add On G2211 Diagnoses Hip pain, left M25.552 Lumbar pain M54.5 Primary osteoarthritis of left hip M16.12 Osteoarthritis type: primary Spondylosis of lumbosacral spine with radiculopathy M47.27 Chronic pain syndrome G89.4 Complex regional pain syndrome i of left lower limb G90.522
[2025-07-01 14:33] VITALS: BP 145/70; BP 197/80; PULSE 89; O2SAT 100; BMI 48.6
--- OUTSIDE RECORDS SUMMARY | 2025-07-01 14:55 | XMS_ITS | Clinical Summary ---
Author Organization [employer] Address [address] [facility] [address] [place] [address] Care Team Providers Care Supervisor Publications Production Name Role Phone Skyler Whitfield Primary Care Provider [phone] Allergies Active Allergy Reactions Criticality Noted Date [...] Active beta carotene (vitamin A) 3 MG (05866 UT) capsule TOME 2 C PSULAS POR [...] Encounters Date Type Department Care Team Description 06/21/2025 Telephone [facility] ADULT D[facility] [address] [place] [address] Elfego Georges DDS 04/28/2025 3:30 PM EDT Office Visit [facility] [address] [place] [address] Elfego Georges DDS Chronic periodontal disease (Primary [...] PCV) 02/10/2025 02/11/2024 COVID-19 Vaccine (4 - season) 2025 08/20/2021, 11/29/2020, 11/08/2020 Influenza [...] Most Recently Relevant to Health Maintenance Insurance [facility] STAND AD[place] Care Teams Supervisor Publications Production Relationship Specialty Start Date End Date Skyler Whitfield [facility] [place] [address] PCP - General 02/16/25
== END 2025-07-01 15:01 | disposition home or self-care (01) ==
PROVIDERS: PCP Internal Medicine; Visit Provider Registered Nurse Emergency
DX: M25.552 Pain in left hip (principal); M54.50 Low back pain, unspecified; M16.12 Unilateral primary osteoarthritis, left hip; M47.27 Other spondylosis with radiculopathy, lumbosacral region; G89.4 Chronic pain syndrome; G90.522 Complex regional pain syndrome I of left lower limb
CPT/HCPCS: 99213

== ENCOUNTER → 2025-07-01 14:12 | Outpatient (BNVA) | payer OTHER, SELFPAY | PROVIDERS: PCP Internal Medicine; Visit Provider Registered Nurse Emergency | DX: G89.4 Chronic pain syndrome (principal); M25.552 Pain in left hip; M54.50 Low back pain, unspecified; M16.12 Unilateral primary osteoarthritis, left hip; M47.27 Other spondylosis with radiculopathy, lumbosacral region; G90.522 Complex regional pain syndrome I of left lower limb | CPT/HCPCS: 99212 ==

== ENCOUNTER 2025-08-03 13:51 | Outpatient (AMB) | payer OTHER, SELFPAY ==
--- NOTE | 2025-08-03 13:51 | MHC.OFFVIS ---
Intake Visit Reasons: 10w/Med Review (set) Intake Note: Patient is presents today via telehealth for a 10w/med review Urology Medication:gemtesa,furosemide Antibiotic Allergy:none Blood Thinner:vitamin k Trolley Operator Required: Yes Trolley Operator Name: Ramírez Information Interpreted: non-clinical & clinical Allergies adhesive tape Allergy (Intermediate, Verified 08/30/25 08:56) skin breakdown HPI Comments Details: 08/03/25-- History of Present Illness The patient is a 60 year old individual presenting for medication management for a urinary condition. The patient is being treated with Gemtesa 75 mg and Trospium. The patient reports the medication is incredibly effective and that urination is now normal. Although the new medication was prescribed for twice-daily use, the patient has been taking it once a day and finds this regimen to be effective. Plan 1. Overactive Bladder - The patient reports significant improvement with the combination of Gemtesa 75 mg and Trospium. - The patient will continue the current medication regimen. - It is acceptable for the patient to continue taking the medication once daily as it is effective, with the option to increase to twice daily if symptoms worsen. - The patient will need to call for medication refills. - A follow-up office visit is scheduled in approximately 9 months. 05/26/25--Urvashi is here for follow-up she has had overactive bladder symptoms therapy included Botox bladder injection. The patient states that after the Botox she noted a change in urinary stream where the urine sprayed and she did not have a straight stream. Office cystoscopy was done on 11/22/2024 at that time there is no anatomical blockage to the urethra or bladder neck. She is currently on Gemtesa 75 mg daily. History of Present Illness The patient is a 59-year-old female presenting with overactive bladder symptoms. She has been experiencing changes in her urinary stream, including spraying and lack of a straight stream, following Botox bladder injection therapy. An office cystoscopy performed on 11/22/24 revealed no anatomical blockage to the urethra or bladder neck. The patient is currently on Gemtesa, 75 mg daily, to manage her symptoms. She reports frequent urination and bladder spasms, which sometimes occur even when the bladder is not full, leading to small amounts of urination. The patient experiences pain in the bladder, likely due to spasms, and finds some relief when urinating. She states the urinary spraying has resolved. Plan 1. Overactive Bladder - Continue Gemtesa, 75 mg daily, Combination therapy. with Trospium - Prescribed Trospium to be taken twice daily around lunch and dinner, ideally on an empty stomach. - Plan a follow-up phone call in 10 weeks to assess medication efficacy and tolerance. 11/22/24--Here for office cystoscopy. S/P Botox bladder injection 03/28/24--Urvashi is a Yemeni-speaking female she has been followed due to overactive bladder symptoms urge urinary incontinence. The patient is also prescribed Gemtesa. Urvashi complains that since I performed the urodynamics procedure she has noted spraying of urination. She feels that there is something inside blocking. Cystoscopy findings: mild trabeculations, no suspicious bladder lesions visualized, no evidence of urethral scarring. 06/28/24--S/P Botox bladder injection 03/28/24--Urvashi is a Yemeni-speaking female she has been followed due to overactive bladder symptoms urge urinary incontinence. The patient is also prescribed Gemtesa. Urvashi complains that since I performed the urodynamics procedure she has noted spraying of urination. She feels that there is something inside blocking. I have instructed her not to push when she is urinating to see if this may help. I want her to stop the gemtesa for 7 days to see if there is any difference in the voiding pattern. She can resume the gemtesa if her urge symptoms worsen and she has no improvement in the spraying. Will further evaluate with cystoscopy if symptoms persist. Bladder scan PVR 249 mL. 03/25/24-- Office procedure: Bladder botox injection--100 units 02/20/24-- Here for urodynamics. CMG parameters detailed below. Interpretation: During the filling phase there was normal sensation, sensory urgency was noted, strong urge was noted associated with detrusor contraction; leakage was not observed during cough or valsalva stress. Findings consistent with detrusor overactivity. EMG- Appropriate changes in the waveforms were noted during the filling phase. The patient was not able to completely empty with the UDS catheters in place. The patient voided 300 mL in the bathroom after catheters removed. The patient has been on Myrbetriq 50 mg for symptoms of urinary urgency. She states the medication has not helped with her urinary symptoms. She has been doing Kegel exercises. I have discussed alternative treatment options to include trial of additional anti muscarinics, Botox bladder injection was discussed. Discussed Plan for Botox bladder instillation. 09/29/23--Telehealth follow-up, as she has the Flu. she was last seen in the office on 06/23/2023 for office cystoscopy, findings bladder wall thickening. She is on anticholinergics for lower urinary tract symptoms of urgency and incontinence. Today she c/o's of spraying of urinary stream, she does not feel the medication is working. Plan-discussed Will sche urodynamics. 06/23/23?She is followed today for a cystoscopy procedure. The patient is a Yemeni-speaking female. A certified loss prevention officer was present during the visit. She has comorbidities, obesity, sleep apnea. She denies history of a hysterectomy. She has had 3 pregnancies, 2 vaginal deliveries, 1 miscarriage.?She was last seen by me on 03/20/23 for urinary frequency. The patient was prescribed Myrbetriq 50 mg daily for OAB symptoms. Ordered a renal ultrasound to be obtained before the Cystoscopy during that time. I reviewed the retroperitoneum US results from 06/12/23 revealed right-sided pelvic fullness without nephrolithiasis.? Postvoid bladder volume of 22.2 mL with visualization of the bilateral ureteral jets. Cystoscopy findings: mild bladder wall thickening. bladder Filled with 200 mL sterilel water. After removing the cystoscope, Pelvic examination--performed, there was no leakage with valsalva, and minimal leakage with cough in supine position, no significant vaginal prolapse. vaginal atrophy. Plan: Continue Myrbetriq 50 mg daily. Ordered vagifem 10 mEq twice a week. Patient instructed on kegel exercises and to do 10 - 20 repetitions twice a day. Follow-up in 4 months. [facility] Medical History Cardiac pacemaker in situ Fibroid Pain at surgical incision Urinary incontinence in female Stress incontinence Lumbar back pain with radiculopathy affecting left lower extremity GERD (gastroesophageal reflux disease) HTN (hypertension) Complex regional pain syndrome i of left lower limb Chronic pain syndrome Cardiomyopathy Second degree AV block Allergies Osteoarthritis of left knee Spondylosis of lumbosacral spine with radiculopathy Back pain Surgical History History of hernia repair (~11/12/23) H/O gastric bypass Gastric bypass status for obesity Hx of cholecystectomy Hx of breast reduction, elective Hx of colonoscopy History of esophagogastroduodenoscopy (EGD) History of permanent cardiac pacemaker placement Family History Father Asthma Mother HTN (hypertension) Alzheimer disease Brother Cardiac pacemaker Sister Colon cancer Metastatic cancer Social History Household Members: None Housing: Apartment Do you presently have visiting nurse or other home services: Yes (MATERIAL LIAISON) Alcohol intake: former Comment: counts correct Patient Tobacco Use Status: Former Tobacco user Cigarette Packs Per Day: 0.5 e-Cigarette/Vaping Use: Never Used Advance Directives Date on File: 11/12/23 service: No 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al status: unemployed and disabled 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 Cognitive needs: No Hearing needs: No Vision needs: Yes Telehealth Telehealth Telehealth Platform: Telephone Location of provider rendering services: practice address Location of patient: address on file Patient Identification confirmed using: Name, : Yes Telehealth method: voice only Patient verbally consented to treatment: Yes Patient verbally consented to billing insurance company: Yes Patient informed of any privacy concerns related to visit: Yes Minutes spent on Phone/Video with Pt.: 14 Assessment & Plan Assessment & Plan (1) OAB (overactive bladder): Code(s): N32.81 - Overactive bladder Category: Medical (2) Urinary urgency: Code(s): R39.15 - Urgency of urination Category: Medical Plan Plan 1. Overactive Bladder - The patient reports significant improvement with the combination of Gemtesa 75 mg and Trospium. - The patient will continue the current medication regimen. - It is acceptable for the patient to continue taking the medication once daily as it is effective, with the option to increase to twice daily if symptoms worsen. - The patient will need to call for medication refills. - A follow-up office visit is scheduled in approximately 9 months. Medications: Refilled vibegron (Gemtesa) 75 mg PO DAILY 30 tabs 8RF trospium administer on an empty stomach one hour before or 2 hours after a meal. 20 mg PO BID 60 tabs 5RF Patient Instructions: The patient had an opportunity to ask questions regarding treatment plan. The patient expressed understanding and agreement with the above treatment plan. The patient is aware they should contact our office by phone for worsening of their current condition or the appearance of new symptoms. Compliance is encouraged with any medications and followup testing that is ordered. It is a privilege to be allowed the opportunity to participate in the urologic care of your patient. If you have any questions or concerns regarding treatment for the above conditions please do not hesitate to contact me. The office telephone contact is [phone]. This note is constructed in part using voice recognition software. While every effort has been made to ensure accuracy hand plug shaper errors may have been included. Yours sincerely, Sergo Jackson MD Scribe Plan - Not visible on output: Patient was informed and verbally consented to the use of an ambient scribe for clinic note documentation during this visit. Coding Level of Care Code Tele Est Pt Level 3 (13233) Diagnoses OAB (overactive bladder) N32.81 Urinary urgency R39.15
--- OUTSIDE RECORDS SUMMARY | 2025-08-03 16:34 | XMS_ITS | Clinical Summary ---
Author Organization [employer] Address [address] [facility] [address] [place] [address] Care Team Providers Care Inner Layer Scrubber Tender Name Role Phone Skyler Whitfield Primary Care Provider [phone] Allergies Active Allergy Reactions Criticality Noted Date [...] Active beta carotene (vitamin A) 3 MG (16072 UT) capsule TOME 2 C PSULAS POR [...] Type Department Care Team Description 06/21/2025 Telephone [facility] ADULT DENTAL [address] [place] [address] Elfego Georges DDS from Last 3 Months Social History Tobacco [...] Procedure Name Priority Date/Time Associated Diagnosis Comments BITEWINGS - 4 RADIOGRAPHIC IMAGES Routine 02/16/2025 [...] Maintenance Insurance [facility] MEDICAID STAND ADULT Care Teams Inner Layer Scrubber Tender Relationship Specialty Start Date End Date NahidSkyler lucero [address] [place] [address] PCP - General 02/16/25
== END 2025-08-03 14:50 | disposition home or self-care (01) ==
LOC: HO.HUSH 13:51
PROVIDERS: PCP Internal Medicine; Visit Provider Urology
DX: N32.81 Overactive bladder (principal); R39.15 Urgency of urination
CPT/HCPCS: 99213

== ENCOUNTER 2025-08-11 10:30 | Outpatient (AMB) | payer OTHER, SELFPAY ==
--- NOTE | 2025-08-11 10:30 | MHC.OFFVIS ---
Intake Visit Reasons: 1 yr follow up Assistant Athletic Trainer Required: Yes Assistant Athletic Trainer Language: Malagasy Accompanied by: Self / Same As Patient Allergies adhesive tape Allergy (Intermediate, Verified 08/03/25 13:53) skin breakdown HPI Comments Details: 60 y/o female patient presents for a tele-health appt for sleep apnea and memory loss. Interval Medical History: Jun 2024 Pacemaker leads adjusted at [facility]. The CPAP compliance and therapy response (05/2025- 08/2025) reviewed with pt. Total avg use is 59/90 days and 60%, the daily avg use is 2 hours and 57min Med press are 8.0cmH20 and leaks 6.7/min AHI is 1.0/hr. She cleans the mask, rinses hoses, changes filters, and fills reservoir with water as needed. She feels better using the CPAP, and goes to bed at 2am, she is unable to sleep, for 2 days now. She gets into bed then tosses and turns all night long. She lives alone and since her son passed 5years ago she has been more forgetful, anxious has poor mood, feeling down. She feels sleep deprived and is chronically fatigued. She puts her coffee on the table in front of her, and covers the food of plate, she thinks she ate her meal and drank her coffee, however the food remains on her plate until the evening when she goes to sisal picker the dishes and the coffee is untouched. She puts her medication in the box, and she is well organized with labeled timing for each prescription and still forgets to take it. She forgets what she is doing in the midst of a task, and writes everything down. Denies confusion and declining function. She states that her memory was not great and has worsened over the last 4 years, has difficulty with word finding, with long pauses. She can do all ADLs and taking care of finances, though her DENTAL LABORATORY ASSISTANT comes in to help her with all the cooking, cleaning, laundry and errands. She does not drive. Pt states that her migraines have improved, not having migraine as frequently, denies vision changes,has tinnitus and constant ringing in the ears, with vertigo, feels off balance and has difficulty walking. Sees a psychologist for depression 2x a month. RLS symptoms of paresthesias, has difficulty falling asleep due to pain in her joints, shoulders, knees and back. [facility] Medical History Cardiac pacemaker in situ Fibroid Pain at surgical incision Urinary incontinence in female Stress incontinence Lumbar back pain with radiculopathy affecting left lower extremity GERD (gastroesophageal reflux disease) HTN (hypertension) Complex regional pain syndrome i of left lower limb Chronic pain syndrome Cardiomyopathy Second degree AV block Allergies Osteoarthritis of left knee Spondylosis of lumbosacral spine with radiculopathy Back pain Surgical History History of hernia repair (~11/12/23) H/O gastric bypass Gastric bypass status for obesity Hx of cholecystectomy Hx of breast reduction, elective Hx of colonoscopy History of esophagogastroduodenoscopy (EGD) History of permanent cardiac pacemaker placement Family History Father Asthma Mother HTN (hypertension) Alzheimer disease Brother Cardiac pacemaker Sister Colon cancer Metastatic cancer Social History Household Members: None Housing: Apartment Do you presently have visiting nurse or other home services: Yes (DENTAL LABORATORY ASSISTANT) Alcohol intake: former Comment: counts correct Patient Tobacco Use Status: Former Tobacco user Cigarette Packs Per Day: 0.5 e-Cigarette/Vaping Use: Never Used Advance Directives Date on File: 11/12/23 service: No 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al status: unemployed and disabled 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 Cognitive needs: No Hearing needs: No Vision needs: Yes Physical Exam Neuro Other: tangential speech, needs redirection frequently on tele-health today. Psych Appearance: well kempt Speech and movement: Pressured speech present and Psychomotor agitation in speech present Thought process: Loose association thought process present, Tangential thought process present and Racing thoughts present Insight: Fair insight present (Psych) Telehealth Telehealth [facility]health [facility] Location of provider rendering services: practice address Location of patient: address on file Patient Identification confirmed using: Name, : Yes Telehealth method: video Patient verbally consented to treatment: Yes Patient verbally consented to billing insurance company: Yes Patient informed of any privacy concerns related to visit: Yes Minutes spent on Phone/Video with Pt.: 32 Results Reviewed Results Reviewed: pacing monitoring lab symone labs 10/2024 MARVEL compliance reviewed Assessment & Plan Assessment & Plan (1) Obstructive sleep apnea: Comment: reviewed compliance with pt today, not compliant. Code(s): G47.33 - Obstructive sleep apnea (adult) (pediatric) Category: Medical (2) Amnesia memory loss: Code(s): R41.3 - Other amnesia Category: Medical (3) Memory change: Code(s): R41.3 - Other amnesia Category: Medical (4) Balance disorder: Comment: PT Code(s): R26.89 - Other abnormalities of gait and mobility Category: Medical (5) H/O tinnitus: Code(s): Z86.69 - Personal history of other diseases of the nervous system and sense organs Category: Medical (6) Forgetfulness: Code(s): R68.89 - Other general symptoms and signs Category: Medical (7) Iron deficiency anemia: Code(s): D50.9 - Iron deficiency anemia, unspecified Category: Medical Qualifiers: Iron deficiency anemia type: other iron deficiency Qualified Code(s): D50.8 - Other iron deficiency anemias (8) Spondylosis of lumbosacral spine with radiculopathy: Code(s): M47.27 - Other spondylosis with radiculopathy, lumbosacral region Category: Medical (9) RLS (restless legs syndrome): Code(s): G25.81 - Restless legs syndrome Category: Medical (10) Chronic fatigue: Code(s): R53.82 - Chronic fatigue, unspecified Category: Medical (11) Speech and language deficits: Code(s): F80.9 - Developmental disorder of speech and language, unspecified Category: Medical (12) Aural vertigo of both ears: Code(s): H81.313 - Aural vertigo, bilateral Category: Medical (13) Balance problem due to vestibular dysfunction: Code(s): H81.90 - Unspecified disorder of vestibular function, unspecified ear Category: Medical Qualifiers: Laterality: unspecified laterality Qualified Code(s): H81.90 - Unspecified disorder of vestibular function, unspecified ear Plan Forgetfulness APO E4 testing, labs to r/o deficiencies, MRI unable due to pacemaker incompatability? MMSE in person, CTscan? in future r/o Amyloid burden pathologies. Memantine 7mg po daily for 2 weeks. then titrate to 14mg po daily for 2 weeks. then 21mg po daily for 2 weeks. -irritable/ low mood Lexapro 10mg po daily MARVEL Stressed compliance, use CPAP nightly and more than 4 hrs, she is having some difficulty with daily use due to her recent pacemaker lead adjustment procedure at [facility], requested notes and is being followed by Dr. Salcedo. Cardiology. Advised patient to try sleep more, 7-8 hours a day and use CPAP during daily naps. RLS paresthesias, continue gabapentin 400mg po TID along with tramadol for pain. Encouraged patient to increase social and physical activities, engage with family and friends, learn new activities, start reading and doing word puzzles. Vertigo: PT with [facility] has Vestibular Therapy for Balance and Gait strengthening. Accupuncture and PT referred for Tinnitus. F/U in person in 2months. Orders: Orders Homocysteine 08/14/25 G47.9 - Sleep disorder, unspecified, R53.82 - Chronic fatigue, unspecified, R53.83 - Other fatigue Comprehensive Met. Panel 08/14/25 D50.8 - Other iron deficiency anemias, R53.82 - Chronic fatigue, unspecified Vitamin B6 08/14/25 R53.82 - Chronic fatigue, unspecified TSH reflex Free T4 08/14/25 R53.82 - Chronic fatigue, unspecified Other Ref Test - [facility] 08/14/25 F02.80 - Dementia in other diseases classified elsewhere, unspecified severity, without behavioral disturbance, psychotic disturbance, mood disturbance, and anxiety, G30.9 - Alzheimer's disease, unspecified Vitamin D 25-OH Total 08/14/25 R53.82 - Chronic fatigue, unspecified Vitamin B12 and Folate 08/14/25 R53.82 - Chronic fatigue, unspecified Ferritin 08/14/25 R53.82 - Chronic fatigue, unspecified Complete Blood Count no Diff 08/14/25 R53.82 - Chronic fatigue, unspecified Methylmalonic Acid 08/14/25 G47.9 - Sleep disorder, unspecified, R53.82 - Chronic fatigue, unspecified, R53.83 - Other fatigue Referrals Speech and Hearing Referral F80.9 - Developmental disorder of speech and language, unspecified Medications: New escitalopram oxalate (Lexapro) 10 mg PO DAILY 90 tabs 3RF 3 months memantine Start this medication at 7mg PO daily for one week, then titrate up to the next dose of 14mg PO daily for one week, then titrate up to 21mg PO daily for one week, then titrate up to 28mg PO daily for ongoing maintenance dose of 28mg PO daily. 7 mg PO DAILY 7 ea 0RF Patient Instructions: MARVEL on cpap compliance reviewed with pt.sleep hygiene reviewed with pt, and >4 hours. Alzheimers dementia work up MMSE in person, /MRI will submit at f/u - APO E4 Testing, and labs submitted. at next f/u ?Memantine 7mg po daily for 2 weeks, then titrate to 14mg po daily for 2 weeks, then 21 mg po daily for 2 weeks will keep her at a maintenance dose of 28mg po daily. Coding Level of Care Code Tele Est Pt Level 4 (21994) Diagnoses Obstructive sleep apnea G47.33 Amnesia memory loss R41.3 Memory change R41.3 Balance disorder R26.89 H/O tinnitus Z86.69 Forgetfulness R68.89 Other iron deficiency anemia D50.8 Iron deficiency anemia type: other iron deficiency Spondylosis of lumbosacral spine with radiculopathy M47.27 RLS (restless legs syndrome) G25.81 Chronic fatigue R53.82 Speech and language deficits F80.9 Aural vertigo of both ears H81.313 Balance problem due to vestibular dysfunction, unspecified laterality H81.90 Laterality: unspecified laterality Time Spent (min) 32
== END 2025-08-11 16:04 | disposition home or self-care (01) ==
LOC: HO.HSMS 10:30
PROVIDERS: PCP Internal Medicine; Visit Provider Physician Assistant Medical
DX: G47.33 Obstructive sleep apnea (adult) (pediatric) (principal); R41.3 Other amnesia; R26.89 Other abnormalities of gait and mobility; Z86.69 Personal history of other diseases of the nervous system and sense organs; R68.89 Other general symptoms and signs; D50.8 Other iron deficiency anemias; M47.27 Other spondylosis with radiculopathy, lumbosacral region; G25.81 Restless legs syndrome; R53.82 Chronic fatigue, unspecified; F80.9 Developmental disorder of speech and language, unspecified; H81.313 Aural vertigo, bilateral; H81.90 Unspecified disorder of vestibular function, unspecified ear
CPT/HCPCS: 99214

== ENCOUNTER 2025-08-30 08:47 | Outpatient (AMB) | payer MEDICAID, SELFPAY ==
--- NOTE | 2025-08-30 08:53 | MHC.OFFVIS ---
Vital Signs 08/30/25 08:54 Height 5 ft 2 in Weight 270 lb 4 oz BMI 49.4 BP 126/80 Blood Pressure Location Rt brachial Position Sitting Pulse 85 Pulse Source Pulse Oximeter Pulse Oximetry (%) 97 Oxygen Delivery Method Room Air Intake Visit Reasons: MMSE and labs, due to cognitive decline Intake Note: Patient presents for MMSE/Labs-cognitive decline Bow Repairer Custom Required: Yes Bow Repairer Custom Services: Bow Repairer Custom Present Bow Repairer Custom Name: Alfredito Nguyen Information Interpreted: non-clinical & clinical Accompanied by: Self / Same As Patient Allergies adhesive tape Allergy (Intermediate, Verified 08/30/25 08:56) skin breakdown HPI Comments Details: 60 y/o female patient with MARVEL presents for a follow up due to memory loss. Bow Repairer Custom on Ipad alfredito Valdez [id number] PMH : Jun 2024 Pacemaker leads adjusted at [facility]. The CPAP compliance and therapy response (05/2025- 08/2025) reviewed with pt. Total avg use is 59/90 days and 60%, the daily avg use is 2 hours and 57min. Med press are 8.0cmH20 and leaks 6.7/min AHI is 1.0/hr. She cleans the mask, rinses hoses, changes filters, and fills reservoir with water as needed. She goes to bed at 4am to 5am, is unable to fall asleep, she sits on the couch and watches tv. She averages about 3 hours of sleep a night and wakes up at 9am. She feels sleep deprived and is chronically fatigued when she doesn't sleep for 2-3 days. She feels refreshed when she uses the CPAP machine even if she is using it for 2-3 hours. She gets into bed then tosses and turns all night long. She lives alone, since her 29 year old son with down syndrome, passed 5years ago after complications post tracheal implant at [facility]. She is forgetful, has poor mood, anxious and feels depressed. She is seeking therapy weekly at [facility].She declines antidepressants today. She denies confusion and declining function. She knows her memory is poor at baseline, however states it has worsened over the last 4 years. She puts her coffee on the table in front of her, and covers the food of plate, she thinks she ate her meal and drank her coffee, however the food remains on her plate until the evening when she goes to forklift picker the dishes and the coffee is untouched. She puts her medication out in the afternoon and is well organized with labeled timings for each prescription, still forgets to take them. She forgets task or what she is doing, and has to write everything down. She has word finding difficulties with long pauses. She can do all ADLs and takes care of the finances, her ENT NURSE comes 3x a week to help her with cooking, cleaning, laundry and errands. She does not drive. She states that her migraines have improved, not having migraine as frequently, denies vision changes, has tinnitus and constant ringing in the ears, with vertigo, feels off balance and has difficulty walking so she uses her cane most of the times. RLS symptoms of bilateral lower extremity paresthesias with cramps. She has difficulty falling asleep due to pain in her joints, shoulders, knees and back. [facility] Medical History Cardiac pacemaker in situ Fibroid Pain at surgical incision Urinary incontinence in female Stress incontinence Lumbar back pain with radiculopathy affecting left lower extremity GERD (gastroesophageal reflux disease) HTN (hypertension) Complex regional pain syndrome i of left lower limb Chronic pain syndrome Cardiomyopathy Second degree AV block Allergies Osteoarthritis of left knee Spondylosis of lumbosacral spine with radiculopathy Back pain Surgical History History of hernia repair (~11/12/23) H/O gastric bypass Gastric bypass status for obesity Hx of cholecystectomy Hx of breast reduction, elective Hx of colonoscopy History of esophagogastroduodenoscopy (EGD) History of permanent cardiac pacemaker placement Family History Father Asthma Mother HTN (hypertension) Alzheimer disease Brother Cardiac pacemaker Sister Colon cancer Metastatic cancer Social History Household Members: None Housing: Apartment Do you presently have visiting nurse or other home services: Yes (ENT NURSE) Alcohol intake: former Comment: counts correct Patient Tobacco Use Status: Former Tobacco user Cigarette Packs Per Day: 0.5 e-Cigarette/Vaping Use: Never Used Advance Directives Date on File: 11/12/23 service: No 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al status: unemployed and disabled 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 Cognitive needs: No Hearing needs: No Vision needs: Yes Physical Exam Vital Signs: Last Vital Signs Pulse 85 08/30/25 08:54 BP 126/80 08/30/25 08:54 Pulse Ox 97 08/30/25 08:54 Oxygen Delivery Method Room Air 08/30/25 08:54 BMI result Body Mass Index 49.4 Const General: cooperative and comfortable Nutritional Appearance: obese and overweight Orientation/consciousness: patient oriented x3 Limitations: language barrier (khmer speaking) HEENT Teeth and gingiva: other (mallampti score is 3) Eyes Pupils: Equal, round and reactive pupils present Resp Effort & Inspection: able to speak in complete sentences Neuro Other: tangential speech, needs redirection and gets confused easily, language barrier? Gait is off, sways and leans to the sides. General: patient oriented x3 and moves all extremities Cranial nerves: Yes Equal, round and reactive pupils present, Yes Normal accommodation reflex present, Yes Normal facial strength present, Yes Ability to bilaterally rotate head present and Yes Ability to bilaterally elevate shoulders present Gait exam (Neuro): Antalgic gait present Motor exam (neuro): Abnormal motor strength present and Abnormal muscle tone present Deep tendon reflexes (DTR's): Right triceps reflex intensity grade: 2+, Left triceps reflex intensity grade: 2+, Rt Biceps (C5, C6): 2+, Left biceps reflex intensity grade: 2+, Right brachioradialis reflex intensity grade: 2+, Left brachioradialis reflex intensity grade: 2+, Right patellar reflex intensity grade: 2+ and Left patellar reflex intensity grade: 2+ Coordination: [id number] test normal Psych Appearance: well kempt Thought process: Loose association thought process present, Tangential thought process present and Racing thoughts present Insight: Fair insight present (Psych) Orientation What is the (year) (season) (date) (day) (month)?: year, season, date, day and month Where are we (state) (county) (town or city) (hospital) (floor)?: state, county, town or city, hospital/clinic and floor Registration Name of 3 unrelated objects clearly and slowly, then ask patient to repeat all 3 of them. ( repeat determines score. Make sure they can repeat all three): object 1, object 2 and object 3 Attention & Calculation (CHOOSE ONE) Spell WORLD backwards (DLROW): 5 letters Recall Ask patient to repeat the 3 items from question #3.: object 1, object 2 and object 3 Language Show patient a wristwatch & ask what it is. Repeat for pencil.: watch and pencil Ask the patient to repeat the phrase 'No ifs, ands, or buts' after you.: incorrect Ask the patient to 'take a piece of paper with their right hand' 'fold paper in half' 'place paper on floor': take paper in right hand, fold paper in half and place paper on floor Print the sentence 'CLOSE YOUR EYES' on a piece. If patient actually closes eyes then score.: followed written direction Give patient a blank piece of paper & ask to write a sentence. Score if it contains a noun & verb.: sentence contains subject and verb Score Score: 28 Assessment & Plan Assessment & Plan (1) Obstructive sleep apnea: Comment: reviewed compliance with pt today, not compliant. Code(s): G47.33 - Obstructive sleep apnea (adult) (pediatric) Category: Medical (2) Amnesia memory loss: Code(s): R41.3 - Other amnesia Category: Medical (3) Memory change: Code(s): R41.3 - Other amnesia Category: Medical (4) Balance disorder: Comment: PT Code(s): R26.89 - Other abnormalities of gait and mobility Category: Medical (5) H/O tinnitus: Code(s): Z86.69 - Personal history of other diseases of the nervous system and sense organs Category: Medical (6) Forgetfulness: Code(s): R68.89 - Other general symptoms and signs Category: Medical (7) Iron deficiency anemia: Code(s): D50.9 - Iron deficiency anemia, unspecified Category: Medical Qualifiers: Iron deficiency anemia type: other iron deficiency Qualified Code(s): D50.8 - Other iron deficiency anemias (8) Spondylosis of lumbosacral spine with radiculopathy: Code(s): M47.27 - Other spondylosis with radiculopathy, lumbosacral region Category: Medical (9) RLS (restless legs syndrome): Code(s): G25.81 - Restless legs syndrome Category: Medical (10) Chronic fatigue: Code(s): R53.82 - Chronic fatigue, unspecified Category: Medical (11) Speech and language deficits: Code(s): F80.9 - Developmental disorder of speech and language, unspecified Category: Medical (12) Aural vertigo of both ears: Code(s): H81.313 - Aural vertigo, bilateral Category: Medical (13) Balance problem due to vestibular dysfunction: Code(s): H81.90 - Unspecified disorder of vestibular function, unspecified ear Category: Medical Qualifiers: Laterality: unspecified laterality Qualified Code(s): H81.90 - Unspecified disorder of vestibular function, unspecified ear (14) Gait disturbance: Code(s): R26.9 - Unspecified abnormalities of gait and mobility Category: Medical Plan Forgetfulness APO E4 testing, labs to r/o deficiencies, MRI unable due to pacemaker incompatability? MMSE in person, CTscan? in future r/o Amyloid burden pathologies. Memantine 7mg po daily for 2 weeks. then titrate to 14mg po daily for 2 weeks. then 21mg po daily for 2 weeks. Anxeity depressioin / mood irritable/ low mood Lexapro 10mg po daily MARVEL Stressed compliance, use CPAP nightly and more than 4 hrs, she is having some difficulty with daily use due to her recent pacemaker lead adjustment procedure at [facility], requested notes and is being followed by Dr. Salcedo. Cardiology. Advised patient to set a regular scheduled sleep cycle, 6-hours a day and use CPAP during daily naps also. RLS paresthesias, continue gabapentin 400mg po TID along with tramadol for pain, continue magnesium 400mg po qpm. Encouraged patient to increase social and physical activities, engage with family and friends, learn new activities, start reading and doing word puzzles. Gait and balance difficulties / Tinnitus/ Vertigo near falls, dizziness PT May continue PT with [facility] has Vestibular Therapy for Balance and Gait strengthening if able to, however working with a Ferris Wheel Operator will teach you the precise exercises you need. F/U in 3 months. Orders: Orders PT Evaluation and Treatment Today H81.90 - Unspecified disorder of vestibular function, unspecified ear, R26.9 - Unspecified abnormalities of gait and mobility Medications: Changed From memantine Start this medication at 7mg PO daily for one week, then titrate up to the next dose of 14mg PO daily for one week, then titrate up to 21mg PO daily for one week, then titrate up to 28mg PO daily for ongoing maintenance dose of 28mg PO daily. 7 mg PO DAILY 7 ea 0RF R41.3 - Other amnesia, R68.89 - Other general symptoms and signs To memantine then titrate up to the next dose of 14mg PO daily for one month. then titrate up to 21mg PO daily for one month. then titrate up to 28mg PO daily for ongoing maintenance dose of 28mg PO daily. 7 mg (1/2 x 14 mg) PO DAILY 30 ea 0RF cognitive decline R41.3 - Other amnesia, R68.89 - Other general symptoms and signs Refilled magnesium oxide 400 mg PO DAILY 30 tabs 11RF 30 days Patient Instructions: Sleep hygiene reviewed with pt today. Compliance is reviewed and emphasized to pt she should be wearing her cpap machine daily for over 4 hours a night as she has a h/o cardiovascular co-morbididities. Use of Cpap daily can improve cognition, memory and mood. This will help to optimize overall health. Coding Level of Care Code Est Pt Level 4 (23679) Diagnoses Obstructive sleep apnea G47.33 Amnesia memory loss R41.3 Memory change R41.3 Balance disorder R26.89 H/O tinnitus Z86.69 Forgetfulness R68.89 Other iron deficiency anemia D50.8 Iron deficiency anemia type: other iron deficiency Spondylosis of lumbosacral spine with radiculopathy M47.27 RLS (restless legs syndrome) G25.81 Chronic fatigue R53.82 Speech and language deficits F80.9 Aural vertigo of both ears H81.313 Balance problem due to vestibular dysfunction, unspecified laterality H81.90 Laterality: unspecified laterality Gait disturbance R26.9
[2025-08-30 08:54] VITALS: BP 126/80; PULSE 85; O2SAT 97; BMI 49.4
--- OUTSIDE RECORDS SUMMARY | 2025-08-30 10:49 | XMS_ITS | Clinical Summary ---
Author Organization [employer] Address [address] [place] [address] Care Team Providers Care Crude Oil Driver Name Role Phone Skyler Whitfield Primary Care Provider [phone] Allergies Active Allergy Reactions Criticality Noted Date [...] Active beta carotene (vitamin A) 3 MG (67637 UT) capsule TOME 2 C PSULAS POR [...] Type Department Care Team Description 06/21/2025 Telephone [facility] ADULT [facility] [address] [place] [address] Elfego Georges DDS from Last 3 Months [...] Most Recently Relevant to Health Maintenance Insurance DENTAL-[facility] MEDICAID STAND ADULT Care Teams Crude Oil Driver Relationship Specialty Start Date End Date NahidSkyler lucero [address] [place] [address] PCP - General 02/16/25
== END 2025-08-30 10:10 | disposition home or self-care (01) ==
LOC: HO.HSMS 08:50
PROVIDERS: PCP Internal Medicine; Visit Provider Physician Assistant Medical
DX: G47.33 Obstructive sleep apnea (adult) (pediatric) (principal); R41.3 Other amnesia; R26.89 Other abnormalities of gait and mobility; Z86.69 Personal history of other diseases of the nervous system and sense organs; R68.89 Other general symptoms and signs; D50.8 Other iron deficiency anemias; M47.27 Other spondylosis with radiculopathy, lumbosacral region; G25.81 Restless legs syndrome; R53.82 Chronic fatigue, unspecified; F80.9 Developmental disorder of speech and language, unspecified; H81.313 Aural vertigo, bilateral; H81.90 Unspecified disorder of vestibular function, unspecified ear; R26.9 Unspecified abnormalities of gait and mobility
CPT/HCPCS: 99214

== ENCOUNTER → 2025-08-30 08:47 | Outpatient (BNVA) | payer OTHER, SELFPAY | PROVIDERS: PCP Internal Medicine; Visit Provider Physician Assistant Medical | DX: G47.33 Obstructive sleep apnea (adult) (pediatric) (principal); R41.3 Other amnesia; R26.89 Other abnormalities of gait and mobility; Z86.69 Personal history of other diseases of the nervous system and sense organs; R68.89 Other general symptoms and signs; D50.8 Other iron deficiency anemias; M47.27 Other spondylosis with radiculopathy, lumbosacral region; G25.81 Restless legs syndrome; R53.82 Chronic fatigue, unspecified; F80.9 Developmental disorder of speech and language, unspecified; H81.313 Aural vertigo, bilateral; H81.90 Unspecified disorder of vestibular function, unspecified ear; Z99.89 Dependence on other enabling machines and devices; Z79.899 Other long term (current) drug therapy | CPT/HCPCS: 99212 ==